=== PATIENT | male | born 1935 | race Caucasian/White ===

== ENCOUNTER → 2016-05-07 | Outpatient (REF) | payer OTHER ==
[~2016-05-07] MED LIST: BAYE325T12 PO; CARV6.25 PO; CRES20TA PO; CYCL10TA3 PO; DIOV320T PO; GLUC750T22 PO; HYDR50TA2 PO; K-TA10TA PO; LASI40TA PO; OMEP40CA2 PO; ULTR50TA PO; VITAMIN B 12 PO; [UNRECOGNIZED DRUG - OTHER] PO
[2016-05-07 16:03] LABS: BASO # 0.1 K/mm3 (0.0-0.2); BASO % 1.4 % (0.0-1.0); EOS # 0.6 K/mm3 (0.0-0.50); EOS % 6.2 % (0.0-3.0); LARGE UNSTAINED CELL # 0.2 K/mm3 (0.0-0.4); LARGE UNSTAINED CELL % 2.2 % (0.0-4.0); LYMPH # 2.4 K/mm3 (1.5-4.5); MEAN CORPUSCULAR HEMOGLOBIN 27.5 pg (27.0-33.0); MEAN CORPUSCULAR VOLUME 85.8 fl (80.0-96.0); MONO # 0.7 K/mm3 (0.0-0.8); MONO % 7.7 % (0.0-5.0); NEUTROPHILS # 5.7 K/mm3 (1.8-7.7); NEUTROPHILS % 59.5 % (36.0-66.0); PLATELET COUNT, AUTOMATED 277 k/mm3 (150-450); RED CELL DISTRIBUTION WIDTH 14.8 % (11.5-14.5); WHITE BLOOD COUNT 9.5 K/mm3 (4.0-10.0)
[2016-05-07 16:29] LABS: ALBUMIN 3.5 GM/DL (3.2-5.2); ALBUMIN/GLOBULIN RATIO 1.06 (1.00-1.93); ALKALINE PHOSPHATASE 81 U/L (45-117); ALT/SGPT 17 U/L (12-78); ANION GAP 7 MEQ/L (8-16); AST/SGOT 11 U/L (15-37); BILIRUBIN,TOTAL 0.4 MG/DL (0.2-1.0); BLOOD UREA NITROGEN 19 MG/DL (7-18); CALCIUM LEVEL 8.6 MG/DL (8.8-10.2); CARBON DIOXIDE LEVEL 32 MEQ/L (21-32); CHLORIDE LEVEL 104 MEQ/L (98-107); CHOLESTEROL LEVEL 146 MG/DL (<200); CREATININE FOR GFR 1.16 MG/DL (0.70-1.30); GLOMERULAR FILTRATION RATE > 60.0 (>35); GLUCOSE, FASTING 122 MG/DL (83-110); POTASSIUM SERUM 4.3 MEQ/L (3.5-5.1); SODIUM LEVEL 143 MEQ/L (136-145); TOTAL PROTEIN 6.8 GM/DL (6.4-8.2); TRIGLYCERIDES LEVEL 101 MG/DL (<150)
== END ==
LOC: M SFHCPLAZ 12:18
PROVIDERS: ATTEND Family Medicine
DX: N18.3 Chronic kidney disease, stage 3 (moderate) (principal); E78.5 Hyperlipidemia, unspecified; R73.01 Impaired fasting glucose; Z85.46 Personal history of malignant neoplasm of prostate; Z98.890 Other specified postprocedural states
CPT/HCPCS: 36415; 80053; 80061; 81001; 82043; 82550; 83036; 85025; 86140; G0103; G0463

== ENCOUNTER → 2016-06-05 | Outpatient (CLI) | payer MEDICARE, OTHER ==
--- NOTE | 2016-06-05 15:08 | REP ---
Whole body radionuclide bone scan: History: Rising PSA. History of malignancy of the prostate. Comparison bone scan is from January 25, 2014. Technique: 21.6 mCi of technetium 99m MDP is injected and standard whole body bone scan imaging is acquired. Scintigraphic findings: There is uptake in bilateral kidneys and in the urinary bladder. There is a fairly prominent arthritic uptake affecting both knees which is unchanged from the December 2013 prior study. There is mild arthritic uptake pattern in the shoulders as well. Degenerative disc and facet uptake is seen in the cervical spine unchanged from the comparison study. There is degenerative disc uptake in the lumbar spine at L2-3 a which is felt to be unchanged. Oblique images of the thorax show a new area of increased uptake in the right side of the T8 vertebral body affecting the right pedicle or right costovertebral junction. There is also increased uptake at T10 bilaterally. These areas must be considered somewhat suspicious. Lower thoracic spine CT or MR imaging may provide additional information. No other new focal abnormality. Impression: There are two new areas of uptake in the lower thoracic spine at T8 and T10. Otherwise unchanged from comparison bone scan. Consider lower thoracic spine CT or MR imaging. Signed by Sean Fernandez MD 06/05/2016 04:19 P
== END ==
LOC: M RAD 09:48
PROVIDERS: ATTEND Nurse Practitioner Women's Health
DX: R97.21 Rising PSA following treatment for malignant neoplasm of prostate (principal)
CPT/HCPCS: 78306; A9503

== ENCOUNTER → 2016-06-07 | Outpatient (CLI) | payer MEDICARE, OTHER ==
[~2016-06-07] MED LIST changes: +GASTROGRAFIN SOLUTION 30ML (Q9963) As Ordered ONE; +ISOVUE-370 76% 100ML VIAL (Q9967) As Ordered ONE
--- NOTE | 2016-06-08 05:08 | REP ---
Clinical: History of rising prostate specific antigen (PSA) with history of prostate cancer and new uptake at T8 and T10 on the bone scan. Technique: Axial contrast enhanced images from the lung bases to the pubic symphysis using 100 ml Isovue 370 intravenous contrast material with precontrast and delayed images of the abdomen and coronal/sagittal re-formations. Comparison: 01/25/2014. Findings: Lung bases demonstrate chronic changes. Visualized heart and pericardium are grossly normal. A moderate and stable paraesophageal gastric hiatal hernia is again identified. Liver, spleen, pancreas, gallbladder, bilateral adrenal glands are normal. Chronic perinephric stranding with cortical scarring and atrophic changes are noted to the kidneys. The enteric system is without obstruction or acute inflammatory process. Scattered diverticula noted without acute diverticulitis. Stable curvilinear rim calcified fat density structure in the anterior left jaclyn pelvis may represent sequelae of prior appendagitis or diverticulitis. Pelvis demonstrates relatively normal bladder. Prostate gland is grossly unremarkable. No pelvic fluid or ascites. No intraperitoneal or retroperitoneal adenopathy. No mass lesions are identified. Small fat containing inguinal hernias noted. Atherosclerotic changes to the aorta and vasculature without aneurysm or dissection. Musculoskeletal structures demonstrate degenerative changes without focal osseous abnormality. Specifically, T10 and visualized T8 demonstrate degenerative change without focal lytic/blastic lesion, sclerotic focus or compression fracture. Impression: 1. With regards to prior nuclear medicine bone scan, no focal osseous abnormalities identified. 2. Chronic stable changes including paraesophageal hiatal hernia, atrophic renal changes, colonic diverticula, and small rimmed calcified curvilinear fat structure in the left hemipelvis. 3. No acute intra-abdominal or pelvic pathology appreciated. Signed by Angel Garcia MD 06/08/2016 04:59 A
== END ==
LOC: M RAD 14:55
PROVIDERS: ATTEND Nurse Practitioner Women's Health
DX: R97.21 Rising PSA following treatment for malignant neoplasm of prostate (principal); Z85.46 Personal history of malignant neoplasm of prostate; Z08 Encounter for follow-up examination after completed treatment for malignant neoplasm
CPT/HCPCS: 74178; Q9967

== ENCOUNTER → 2016-06-28 | Outpatient (REF) | payer OTHER ==
[~2016-06-28] MED LIST changes: -GASTROGRAFIN SOLUTION 30ML (Q9963) As Ordered ONE; -ISOVUE-370 76% 100ML VIAL (Q9967) As Ordered ONE
[2016-06-28 16:22] LABS: CREATININE FOR GFR 1.23 MG/DL (0.70-1.30); GLOMERULAR FILTRATION RATE 59.8 (>35); POTASSIUM SERUM 4.4 MEQ/L (3.5-5.1)
== END ==
LOC: M LABSMT 12:54
PROVIDERS: ATTEND Urology
DX: C61 Malignant neoplasm of prostate (principal)

== ENCOUNTER → 2016-06-29 | Outpatient (CLI) | payer MEDICARE, OTHER ==
--- NOTE | 2016-06-29 14:46 | REP ---
MR THORACIC SPINE WITHOUT AND WITH CONTRAST: HISTORY: Prostate cancer. Contrast: ProHance 10 mL. A disc bulge is present at the T1-2 level. There is minimal effacement of the thecal sac without spinal cord compression. The T1 neural foramina are patent. A small central disc protrusion is present at the T2-3 level. This abuts the spinal cord. The T2 neural foramina are patent. A small central disc protrusion is present at the T6-7 level. There is minimal effacement of the thecal sac without spinal cord compression. The T2 neural foramina are patent. A disc bulge is present at the T8-9 level. There is minimal effacement of the thecal sac without spinal cord compression. The T8 neural foraminal are patent. A disc bulge is present at the T9-10 level. There is minimal effacement of the thecal sac without spinal cord compression. The T9 neural foramina are patent. A disc bulge is present at the T10-11 level. There is minimal effacement of the thecal sac without spinal cord compression. The T10 neural foramina are patent. There is no other disc bulge or herniation. The remaining neural foramina are patent. The spinal cord is normal in signal intensity. There is no intradural extramedullary lesion. Increased signal intensity on T2-weighted images is present in the endplates of the T8 through T11 vertebral bodies. This represents degenerative change. Normal signal intensity is present in the remaining thoracic vertebral bodies. There is no abnormal enhancement. IMPRESSION: 1. Small disc protrusions at the T2-3 and T6-7 levels without spinal cord compression. 2. Disc bulges at the T1-2 and T8-9 through T10-11 levels without spinal cord compression. Signed by Fernando Jaimes MD 06/29/2016 02:49 P
== END ==
LOC: M RAD 11:11
PROVIDERS: ATTEND Urology
DX: M54.6 Pain in thoracic spine (principal)
CPT/HCPCS: 72157; A9576

== ENCOUNTER 2016-09-06 14:05 | Inpatient (IN) | payer OTHER ==
[~2016-09-06] VITALS: Ht 185.4 cm; Wt 107.5 kg
[2016-09-06] MEDS: POTASSIUM CHLORIDE 10 MEQ SR TABLET PO SCH (02:28)
[2016-09-06] MEDS: CAPTOpril 6.25 MG PER 1/2 TABLET PO SCH (02:28)
[2016-09-06] MEDS: OMEPRAZOLE 20 MG CAP PO SCH (02:28)
[2016-09-06] MEDS: ASPIRIN 325 MG TAB PO SCH (02:28)
[2016-09-06] MEDS ORDERED: CEPH500C (14:15)
[2016-09-06] MEDS ORDERED: CAPT125TA (14:15)
[2016-09-06] MEDS ORDERED: OMEP20CA3 (14:15)
[2016-09-06] MEDS ORDERED: IRBE150T12 (14:15)
[2016-09-06] MEDS ORDERED: VITA10002 (14:15)
[2016-09-06] MEDS ORDERED: DICL1GEL3 (14:15)
[2016-09-06] MEDS ORDERED: MORPHINE 2 MG/ML 1ML SYRINGE IV ONE (15:15)
[2016-09-06] MEDS ORDERED: CLINDAMYCIN 600 MG in APPROPRIATE DILUENT 1 EA IV ONE (15:15)
[2016-09-06 16:28] LABS: ANION GAP 6 MEQ/L (8-16); BLOOD UREA NITROGEN 19 MG/DL (7-18); CARBON DIOXIDE LEVEL 31 MEQ/L (21-32); CHLORIDE LEVEL 101 MEQ/L (98-107); CREATININE FOR GFR 1.09 MG/DL (0.70-1.30); GLOMERULAR FILTRATION RATE > 60.0 (>35); GLUCOSE, FASTING 176 MG/DL (83-110); SODIUM LEVEL 138 MEQ/L (136-145)
--- NOTE | 2016-09-06 16:53 | REP ---
FOOT: REASON: Swelling for a week after trauma. COMPARISON: 02/18/2012 The bones are demineralized. Degenerative changes are again seen throughout the foot increased. This limited two view exam can not rule out a fracture or destructive osseous lesion. There is diffuse swelling about both anterior and plantar surfaces of the foot. IMPRESSION: Marked diffuse swelling and chronic changes and limitations as described above. If a fracture is of clinical concern obtain 4 view trauma series. If osteomyelitis is of clinical concern obtain an MRI. If the patient is not compatible with an MRI then obtain a triple phase bone scan. A fracture can not be ruled out. Signed by Cristino Ortiz DO 09/06/2016 04:55 P
[2016-09-06 17:14] LABS: BASO % 0.2 % (0.0-1.0); EOS # 0.3 K/mm3 (0.0-0.50); EOS % 3.2 % (0.0-3.0); LARGE UNSTAINED CELL # 0.2 K/mm3 (0.0-0.4); LARGE UNSTAINED CELL % 2.2 % (0.0-4.0); LYMPH # 1.6 K/mm3 (1.5-4.5); MEAN CORPUSCULAR HEMOGLOBIN 28.7 pg (27.0-33.0); MEAN CORPUSCULAR VOLUME 89.8 fl (80.0-96.0); MONO # 0.7 K/mm3 (0.0-0.8); MONO % 7.8 % (0.0-5.0); NEUTROPHILS # 5.6 K/mm3 (1.8-7.7); NEUTROPHILS % 67.5 % (36.0-66.0); PLATELET COUNT, AUTOMATED 328 k/mm3 (150-450); RED CELL DISTRIBUTION WIDTH 13.5 % (11.5-14.5); WHITE BLOOD COUNT 8.2 K/mm3 (4.0-10.0)
[2016-09-06 17:41] LABS: ERYTHROCYTE SEDIMENTATION RATE 49 mm/hr (0-20)
[2016-09-06] MEDS ORDERED: ONDANSETRON 4MG/2ML VIAL (J2405) IV PRN (18:30)
[2016-09-06] MEDS ORDERED: BISACODYL 5 MG TAB PO PRN (18:30)
[2016-09-06] MEDS ORDERED: MORPHINE 2 MG/ML 1ML SYRINGE IV PRN (18:45)
[2016-09-06] MEDS ORDERED: OMEP20CA3 PO (19:09)
[2016-09-06] MEDS ORDERED: POTA10CA PO (19:09)
[2016-09-06] MEDS ORDERED: TRAM50TA2 PO (19:09)
[2016-09-06] MEDS ORDERED: CAPT62TA PO (19:09)
[2016-09-06] MEDS ORDERED: TIZA2TA PO (19:09)
[2016-09-06] MEDS ORDERED: FURO40TA2 PO (19:09)
[2016-09-06] MEDS ORDERED: ASPI325T PO (19:09)
[2016-09-06] MEDS ORDERED: CEPH500C PO (19:09)
[2016-09-06] MEDS ORDERED: VITA100066 PO (19:11)
[2016-09-06] MEDS ORDERED: CRES20TA PO (19:11)
[2016-09-06] MEDS ORDERED: VITA10002 PO (19:11)
--- NOTE | 2016-09-06 20:04 | HPE ---
DATE OF ADMISSION: 09/06/2016 PRIMARY CARE PROVIDER: Dr. Landen Dyson CHIEF COMPLAINT: Leg pain and swelling. HISTORY OF PRESENT ILLNESS: Mr. Chino is an 81-year-old male with past medical history significant for hypertension, hyperlipidemia, prostate cancer status post radiation therapy 20 years ago, gastroesophageal reflux disease, Zenker's diverticulum, benign prostatic hypertrophy, obstructive sleep apnea refusing C-PAP, erectile dysfunction, partial complex seizures refusing antiepileptic drugs, CHF with diastolic dysfunction and degenerative joint disease presents to the emergency department with left foot pain and swelling. The patient reports that on Saturday he dropped a cane on his left foot. The next day he started to develop swelling and pain. He presented to his primary care provider on Saturday and was prescribed Keflex. The patient reports that he had been taking his Keflex as prescribed however, his left foot became more swollen, more red and more painful. He reports a previous history of cellulitis. States that it is extremely painful. He reports that he has difficulty with ambulating. Patient reports some lightheadedness. Denies any fevers, chills, night sweats, weight loss, nausea, vomiting, abdominal pain, diarrhea, constipation, urinary issues, rashes. He denies any break in the skin and no drainage. He denies any sick contacts and no recent travel. He reports chronic numbness and tingling of bilateral feet, unchanged. He was given morphine and clindamycin in the emergency department and hospitalist was subsequently called to admit. PAST MEDICAL HISTORY: 1. Hypertension. 2. Hyperlipidemia. 3. Prostate cancer status post radiation therapy 20 years ago. 4. Obstructive sleep apnea, refuses C-PAP. 5. Partial complex seizures, refuses antiepileptic drugs. 6. Gastroesophageal reflux disease. 7. Diverticulum. 8. History of nephrolithiasis. 9. Benign prostatic hypertrophy. 10. History of hiatal hernia. 11. Knee osteoarthritis. 12. Erectile dysfunction. 13. Diastolic heart failure , EF of 60% in 2014. 14. Vitamin D deficiency. 15. B12 deficiency. 16. Lumbar disk degenerative disease. 17. Questionable chronic kidney disease. PAST SURGICAL HISTORY: He reports some form of prostate surgery HOME MEDICATIONS: - aspirin 325 mg by mouth daily - captopril 12.5 mg daily - Keflex 500 mg - vitamin B12 - furosemide 40 mg daily - irbesartan 150 mg daily - omeprazole 20 mg daily - Tramadol 50 mg by mouth twice daily - Crestor 20 mg by mouth at night - vitamin B12 2500 mcg by mouth - vitamin D3 1000 mg by mouth daily - K-tabs 20 mEq by mouth daily - glucosamine 1500 mg by mouth daily ALLERGIES: No known drug allergies. SOCIAL HISTORY: The patient is a former smoker, quit in 1969. Smoked for about 10-15 years of up to one pack per day. Denies any alcohol or illicit drug use. He lives with his who Alzheimer's dementia He has five children. Daughter has history of iron problems. He also has a 59-year-old daughter who he reports has been a coma for 2 years after having gastric bypass surgery, recently transferred to [facility]. No sick contacts, recent travel and no pets. FAMILY HISTORY: Mom had history of cancer, unknown. Father had history of CA at age 61. REVIEW OF SYSTEMS: As per HPI. In addition, the patient reports chronic cramping of his feet. He has chronic intermittent headaches. No syncope. No palpitations, paroxysmal nocturnal dyspnea, orthopnea. No cough or sputum production. No acute changes in vision or hearing. No hematochezia or melena. No change in urinary frequency, but reports that he urinates a lot secondary to being on Lasix. No dysuria or hematuria. No rashes or skin lesions. No joint or bone pain currently. No history of diabetes or thyroid disorder. PHYSICAL EXAMINATION: Vital signs: Temperature 98.2, pulse 77, respiratory rate 16, blood pressure 155/93, pulse ox 94% on room air. GENERAL: The patient is awake and alert in no acute distress. HEENT: Normocephalic, atraumatic. Extraocular muscles are intact. Pupils are equally round and reactive to light. No scleral icterus. Moist mucosa. NECK: Supple. No cervical lymphadenopathy or thyromegaly. No jugular venous distension appreciated. HEART: Normal S1-S2, regular rate and rhythm. I did not appreciate a murmur. He has distant heart sounds. LUNGS: Clear to auscultation bilaterally. No rales, rhonchi or wheezing. ABDOMEN: Obese, soft, nontender. Bowel sounds are present. No rebound, guarding or rigidity. EXTREMITIES: Left foot has significant edema and erythema. Tender to touch. Pulses are palpable. He has a pill rolling tremor. SKIN: Warm and dry. Has significant erythema of the left foot to his ankle NEUROLOGIC: No focal deficits. Cranial nerves II-XII are grossly intact. Moving all extremities. LABORATORY DATA: WBC 8.2, hemoglobin 13.4, hematocrit 41.8, platelet count 320, a volume 138, potassium 4.0, chloride 101, carbon dioxide 31, anion gap 6, BUN 19, creatinine 1.09, GFR greater than 60, fasting glucose 176, calcium 8.0, C-reactive protein 13.0. Microbiology blood cultures pending. IMAGING STUDIES: The patient had a foot x-ray which revealed mild diffuse swelling and chronic changes. Diffuse swelling of the anterior and plantar surfaces of the foot, which limits imaging. Recommending either four view trauma series or MRI because fracture could not be ruled out. ASSESSMENT/PLAN: 1. Left foot cellulitis, failed outpatient antibiotic therapy. The patient will be placed on ceftaroline 600 mg every 12 hours. Blood cultures are pending. C-reactive protein elevated at 13. Vitals are stable. He is afebrile. Foot x-ray could not rule out fracture or bone pathology. Will obtain an MRI of the left foot. Pain medication as needed. 2. Hypertension. Continue with his blood pressure medications with hold parameters. 3. Hyperlipidemia. Continue with Crestor. 4. History of prostate cancer status post radiation therapy 20 years ago. No recurrence. 5. Gastroesophageal reflux disease. Continue with omeprazole 6. Obstructive sleep apnea. The patient refuses C-PAP treatment. Will need continuous pulse oximetry. 7. History of partial complex seizure, refuses antiepileptic drugs. Monitor for seizure activity. 8. History of diastolic heart failure, ejection fraction of 60% in 2013. He appears compensated at this time. Continue with the Lasix. Monitor renal function and electrolytes. 9. History of benign prostatic hypertrophy. 10. History of chronic obstructive pulmonary disease. 11. History of osteoarthritis. Tylenol as needed. CODE STATUS: The patient is full code. The patient will be admitted to medical-surgical as inpatient. DVT prophylaxis with subcutaneous heparin. My preceptor for this patient encounter was Dr. Janae Sutton. The preceptor was physically present in the building during the encounter and was fully available as needed. All aspects of the patient interview, examination, medical decision making process, and medical care plan development were reviewed and approved by the preceptor. The preceptor is aware and concurs with the plan as stated in the body of this note and will attest to such by his/her co-signature.
--- NOTE | 2016-09-06 20:40 | REPUSA ---
MRI of the left foot Clinical statement: swelling, trauma. Technique: Multiecho multiplanar MRI images of the left foot were obtained without administration of contrast. No comparison is available. Findings: Ligaments and tendons: The anterior, medial and lateral tendons of the ankle demonstrate normal signa l and contour. The Achilles tendon is within normal limits. The medial and lateral ligament complexes are intact. Articular cartilage: Uniform signal and contour seen throughout the articular cartilage, with no oste ochondral defects appreciated. Bones: The osseous structures demonstrate uniform signal. No osseous tumors or lesions are seen. The bone marrow is unremarkable. Soft tissues: The surrounding soft tissues are mildly diffusely swollen. The musculature appears wit hin normal limits. No evidence of a joint effusion is seen. Impression: Diffuse soft tissue swelling. No focal soft tissue fluid collection or mass demonstrated . The osseous structures are unremarkable, without any acute fractures.
[2016-09-06] MEDS ORDERED: ROSUVASTATIN 10 MG TAB (CRESTOR) PO SCH (21:00)
[2016-09-07] MEDS ORDERED: CEFTAROLINE FOSAMIL 600 MG in D5W MINI-BAG PLUS 50 ML IV SCH ×2
[2016-09-07 01:08] VITALS: BP 139/79
[2016-09-07] MEDS: CEFTAROLINE FOSAMIL 600 MG in D5W MINI-BAG PLUS 50 ML IV SCH ×2 (02:06→14:30)
[2016-09-07] MEDS: PERCOCET 5MG/325MG TAB PO PRN ×2 (02:14→14:32)
[2016-09-07] MEDS: HEPARIN SOD (PORCINE) 5000 UNITS/ML VIAL SC SCH ×4 (02:29→21:08)
[2016-09-07] MEDS: traMADol 50 MG TAB PO SCH ×3 (02:29→21:07)
[2016-09-07 05:43] LABS: MEAN CORPUSCULAR HEMOGLOBIN 27.8 pg (27.0-33.0); MEAN CORPUSCULAR HGB CONC 31.3 g/dl (32.0-36.5); MEAN CORPUSCULAR VOLUME 88.9 fl (80.0-96.0); RED CELL DISTRIBUTION WIDTH 13.5 % (11.5-14.5); WHITE BLOOD COUNT 8.2 K/mm3 (4.0-10.0)
[2016-09-07 06:00] VITALS: BP 132/72
[2016-09-07 06:05] LABS: ANION GAP 7 MEQ/L (8-16); BLOOD UREA NITROGEN 19 MG/DL (7-18); CALCIUM LEVEL 8.3 MG/DL (8.8-10.2); CARBON DIOXIDE LEVEL 32 MEQ/L (21-32); CHLORIDE LEVEL 102 MEQ/L (98-107); CREATININE FOR GFR 0.99 MG/DL (0.70-1.30); GLOMERULAR FILTRATION RATE > 60.0 (>35); GLUCOSE, FASTING 139 MG/DL (83-110); POTASSIUM SERUM 4.1 MEQ/L (3.5-5.1); SODIUM LEVEL 141 MEQ/L (136-145)
--- NOTE | 2016-09-07 08:24 | IPNPDOC ---
Subjective Date Seen The patient was seen on 09/07/16. Subjective Chief Complaint/HPI The patient is a 81-year-old male admitted with a reason for visit of Cellulitis Of Left Foot. Events since last encounter Osteomyelitis tx. MRI and xray completed. Started on Ceftaroline. Constitutional: Denies: Chills, Fever, Night Sweats ENT: Denies: Head Aches, Ear Pain, Dysphagia Skin: Denies: Rash, Lesions, Breakdown Pulmonary: Denies: Dyspnea, Cough Cardiovascular: Denies: Chest Pain, Palpitations, Orthopnea, Paroxysmal Noc. Dyspnea, Edema, Lt Headedness, Other Symptoms Genitourinary: Denies: Dysuria, Frequency, Incontinence, Retention Objective Physical Examination General Exam: Positive: Alert, No Acute Distress ENT Exam: Positive: Atraumatic, Mucous membr. moist/pink, Pharynx Normal Neck Exam: Positive: Supple, Negative: JVD, thyromegaly Chest Exam: Positive: Clear to auscultation, Normal air movement Heart Exam: Positive: Rate Normal, Regular Rhythm, Normal S1, Normal S2, Negative: Murmurs, Rubs Abdomen Exam: Positive: Normal bowel sounds, Soft, Negative: Tenderness, Hepatospenomegaly Extremity Exam: Positive: Other (LLE with erythema and swelling. + warmth, mildly tender) Skin Exam: Positive: Nl turgor and temperature, Negative: Rash, Breakdown Psych Exam: Positive: Mental status NL, Mood NL, Oriented x 3 Assessment /Plan Problems (1) Cellulitis of left foot Status: Acute Problem Text: Day 1 Ceftaroline. Failed out patient Keflex. MRI negative for osteomyelitis. Patient feels better, but gout remains a possibility here. 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 (6) GERD (gastroesophageal reflux disease) Status: Chronic Response to Treatment: Stable (7) BPH (benign prostatic hyperplasia) Status: Chronic Response to Treatment: Stable (8) Diastolic CHF Status: Chronic Response to Treatment: Stable Problem Text: EF 60% Plan/VTE VTE Prophylaxis Ordered?: Yes (Heparin ) VS, I&O, [facility] Vital Signs/I&O Vital Signs Date Time Temp Pulse Resp B/P (MAP) Pulse Ox O2 Delivery O2 Flow Rate FiO2 09/07/16 06:00 98.0 78 20 132/72 (92) 94 09/07/16 01:08 Room Air I&O- Last 24 Hours up to 6 AM 09/07/16 05:59 Intake Total 230 ml Output Total 150 ml Balance 80 ml Laboratory Data 24H LABS Laboratory Tests 2 09/06/16 15:43: White Blood Count 8.2, Red Blood Count 4.66, Hemoglobin 13.4L, Hematocrit 41.8L , Mean Corpuscular Volume 89.8, Mean Corpuscular Hemoglobin 28.7, Mean Corpuscular Hemoglobin Concent 32.0, Red Cell Distribution Width 13.5, Platelet Count 328, Neutrophils (%) (Auto) 67.5H, Lymphocytes (%) (Auto) 19.0L, Monocytes (%) (Auto) 7.8H, Eosinophils (%) (Auto) 3.2H, Basophils (%) (Auto) 0.2 , Neutrophils # (Auto) 5.6, Lymphocytes # (Auto) 1.6, Monocytes # (Auto) 0.7, Eosinophils # (Auto) 0.3, Basophils # (Auto) 0.0, Large Unclassified Cells % 2.2 , Large Unclassified Cells # 0.2, Erythrocyte Sedimentation Rate 49H, Anion Gap 6L, Glomerular Filtration Rate > 60.0, Blood Urea Nitrogen 19H, Creatinine 1.09 , Sodium Level 138, Potassium Level 4.0, Chloride Level 101, Carbon Dioxide Level 31, Calcium Level 8.0L, C-Reactive Protein, Quantitative 13.00H 09/07/16 05:25: Anion Gap 7L, Glomerular Filtration Rate > 60.0, Blood Urea Nitrogen 19H, Creatinine 0.99, Sodium Level 141, Potassium Level 4.1, Chloride Level 102, Carbon Dioxide Level 32, Calcium Level 8.3L CBC/BMP Laboratory Tests 09/06/16 15:43 Red Blood Count 4.66, Mean Corpuscular Volume 89.8, Mean Corpuscular Hemoglobin 28.7, Mean Corpuscular Hemoglobin Concent 32.0, Red Cell Distribution Width 13.5 , Neutrophils (%) (Auto) 67.5 H, Lymphocytes (%) (Auto) 19.0 L, Monocytes (%) ( Auto) 7.8 H, Eosinophils (%) (Auto) 3.2 H, Basophils (%) (Auto) 0.2, Neutrophils # (Auto) 5.6, Lymphocytes # (Auto) 1.6, Monocytes # (Auto) 0.7, Eosinophils # (Auto) 0.3, Basophils # (Auto) 0.0, Calcium Level 8.0 L 09/07/16 05:25 Red Blood Count 4.16 L, Mean Corpuscular Volume 88.9, Mean Corpuscular Hemoglobin 27.8, Mean Corpuscular Hemoglobin Concent 31.3 L, Red Cell Distribution Width 13.5, Calcium Level 8.3 L Microbiology Microbiology 09/06/16 Blood Culture, Received Pending 09/06/16 Blood Culture, Received Pending Attending Note Attending Note Patient seen. Agree with plan and findings by [employer] RECREATION DIRECTOR. Will check uric acid level. Consider colchicine. Sandra Nieto September 07, 2016 08:23 Fabrizio Zhou MD September 07, 2016 12:30
[2016-09-07] MEDS: OMEPRAZOLE 20 MG CAP PO SCH ×2 (09:44→21:06)
[2016-09-07] MEDS: CYANOCOBALAMIN 500 MCG TAB PO SCH (09:44)
[2016-09-07] MEDS: FUROSEMIDE 40 MG TAB PO SCH (09:44)
[2016-09-07] MEDS: POTASSIUM CHLORIDE 10 MEQ SR TABLET PO SCH ×2 (09:44→21:07)
[2016-09-07] MEDS: CAPTOpril 6.25 MG PER 1/2 TABLET PO SCH ×2 (09:44→21:07)
[2016-09-07] MEDS: VITAMIN D 1,000 INTERNATIONAL UNITS TABLET PO SCH (09:45)
[2016-09-07 13:22] LABS: URIC ACID 6.6 MG/DL (3.5-7.2)
[2016-09-07 14:00] VITALS: BP 142/85
[2016-09-07] MEDS: COLCHICINE 0.6 MG TAB PO SCH ×2 (14:30→21:07)
[2016-09-07] MEDS: ASPIRIN 325 MG TAB PO SCH (21:08)
[2016-09-07 22:00] VITALS: BP 131/77
[2016-09-08] MEDS: ACETAMINOPHEN TAB 650MG DOSE (2X325MG) PO PRN (00:45)
[2016-09-08] MEDS: CEFTAROLINE FOSAMIL 600 MG in D5W MINI-BAG PLUS 50 ML IV SCH ×2 (01:40→14:56)
[2016-09-08] MEDS: HEPARIN SOD (PORCINE) 5000 UNITS/ML VIAL SC SCH ×3 (05:55→21:02)
[2016-09-08 06:00] VITALS: BP 148/75
[2016-09-08 06:13] LABS: MEAN CORPUSCULAR HEMOGLOBIN 28.2 pg (27.0-33.0); RED CELL DISTRIBUTION WIDTH 13.4 % (11.5-14.5); WHITE BLOOD COUNT 7.4 K/mm3 (4.0-10.0)
[2016-09-08 06:18] LABS: ANION GAP 9 MEQ/L (8-16); BLOOD UREA NITROGEN 14 MG/DL (7-18); CALCIUM LEVEL 8.3 MG/DL (8.8-10.2); CARBON DIOXIDE LEVEL 27 MEQ/L (21-32); CHLORIDE LEVEL 103 MEQ/L (98-107); CREATININE FOR GFR 0.91 MG/DL (0.70-1.30); GLOMERULAR FILTRATION RATE > 60.0 (>35); GLUCOSE, FASTING 127 MG/DL (83-110); SODIUM LEVEL 139 MEQ/L (136-145)
[2016-09-08] MEDS: CYANOCOBALAMIN 500 MCG TAB PO SCH (09:53)
[2016-09-08] MEDS: COLCHICINE 0.6 MG TAB PO SCH ×2 (09:53→21:03)
[2016-09-08] MEDS: OMEPRAZOLE 20 MG CAP PO SCH ×2 (09:53→21:03)
[2016-09-08] MEDS: FUROSEMIDE 40 MG TAB PO SCH (09:53)
[2016-09-08] MEDS: POTASSIUM CHLORIDE 10 MEQ SR TABLET PO SCH ×2 (09:53→21:03)
[2016-09-08] MEDS: CAPTOpril 6.25 MG PER 1/2 TABLET PO SCH ×2 (09:53→21:03)
[2016-09-08] MEDS: VITAMIN D 1,000 INTERNATIONAL UNITS TABLET PO SCH (09:54)
[2016-09-08] MEDS: traMADol 50 MG TAB PO SCH ×2 (09:55→21:03)
[2016-09-08 14:00] VITALS: BP 166/80
[2016-09-08] MEDS: ASPIRIN 325 MG TAB PO SCH (21:02)
[2016-09-08 22:00] VITALS: BP 145/92
--- NOTE | 2016-09-08 23:57 | IPNPDOC ---
Subjective Date Seen The patient was seen on 09/08/16. Subjective Chief Complaint/HPI The patient is a 81-year-old male admitted with a reason for visit of Cellulitis Of Left Foot. Events since last encounter Patient states that his foot is doing much better than yesterday. He is able to tolerate having a sheet and blanket on it. It seems significantly less swollen. It is still uncomfortable to walk on. Otherwise, he feels that he is doing well. He wonders when he will be able to go home. Constitutional: Reports: Fatigue, Denies: Chills, Fever, Malaise Skin: Reports: Other (erythema left foot) Pulmonary: Denies: Dyspnea, Cough Cardiovascular: Denies: Chest Pain, Palpitations Gastrointestinal: Denies: Nausea, Vomiting, Diarrhea, Constipation Musculoskeletal: Reports: Foot Pain, Joint Pain Psych: Reports: Mood Normal Objective Physical Examination General Exam: Positive: Alert, No Acute Distress ENT Exam: Positive: Atraumatic, Mucous membr. moist/pink, Pharynx Normal Neck Exam: Positive: Supple, Negative: JVD, thyromegaly Chest Exam: Positive: Clear to auscultation, Normal air movement Heart Exam: Positive: Rate Normal, Regular Rhythm, Normal S1, Normal S2, Negative: Murmurs, Rubs Abdomen Exam: Positive: Normal bowel sounds, Soft, Negative: Tenderness, Hepatospenomegaly Extremity Exam: Positive: Other (LLE with erythema and swelling. + warmth, mildly tender) Skin Exam: Positive: Nl turgor and temperature, Negative: Rash, Breakdown Psych Exam: Positive: Mental status NL, Mood NL, Oriented x 3 Assessment /Plan Problems (1) Cellulitis of left foot Status: Acute Problem Text: 09/08 On day 2 of ceftaroline, after failing outpatient Keflex. MRI negative for osteomyelitis. He is also being treated for gout. Improving. 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 (6) GERD (gastroesophageal reflux disease) Status: Chronic Response to Treatment: Stable (7) BPH (benign prostatic hyperplasia) Status: Chronic Response to Treatment: Stable (8) Diastolic CHF Status: Chronic Response to Treatment: Stable Problem Text: EF 60% Plan/VTE VTE Prophylaxis Ordered?: Yes (Heparin ) VS, I&O, 24H, Fishbone Vital Signs/I&O Vital Signs Date Time Temp Pulse Resp B/P (MAP) Pulse Ox O2 Delivery O2 Flow Rate FiO2 09/08/16 22:00 99.0 96 18 145/92 (109) 95 Room Air I&O- Last 24 Hours up to 6 AM 09/08/16 06:00 Intake Total 2450 ml Output Total 1525 ml Balance 925 ml Laboratory Data 24H LABS Laboratory Tests 2 09/08/16 05:31: Anion Gap 9, Glomerular Filtration Rate > 60.0, Blood Urea Nitrogen 14, Creatinine 0.91, Sodium Level 139, Potassium Level 4.0, Chloride Level 103, Carbon Dioxide Level 27, Calcium Level 8.3L, C-Reactive Protein, Quantitative 6.73H CBC/BMP Laboratory Tests 09/08/16 05:31 Red Blood Count 4.28 L, Mean Corpuscular Volume 88.0, Mean Corpuscular Hemoglobin 28.2, Mean Corpuscular Hemoglobin Concent 32.0, Red Cell Distribution Width 13.4, Calcium Level 8.3 L Microbiology Microbiology 09/06/16 Blood Culture - Preliminary, Resulted No Growth after 48 hours. All Specime... 09/06/16 Blood Culture - Preliminary, Resulted No Growth after 48 hours. All Specime... QUINTON QUEZADA DO September 08, 2016 23:57
[2016-09-09] MEDS: CEFTAROLINE FOSAMIL 600 MG in D5W MINI-BAG PLUS 50 ML IV SCH (01:30)
[2016-09-09] MEDS: HEPARIN SOD (PORCINE) 5000 UNITS/ML VIAL SC SCH (05:13)
[2016-09-09] MEDS: ACETAMINOPHEN TAB 650MG DOSE (2X325MG) PO PRN (05:13)
[2016-09-09 06:00] VITALS: BP 150/85
[2016-09-09 06:14] LABS: MEAN CORPUSCULAR HEMOGLOBIN 27.8 pg (27.0-33.0); MEAN CORPUSCULAR HGB CONC 32.2 g/dl (32.0-36.5); MEAN CORPUSCULAR VOLUME 86.3 fl (80.0-96.0); RED CELL DISTRIBUTION WIDTH 13.6 % (11.5-14.5); WHITE BLOOD COUNT 5.6 K/mm3 (4.0-10.0)
[2016-09-09 06:31] LABS: ANION GAP 8 MEQ/L (8-16); BLOOD UREA NITROGEN 12 MG/DL (7-18); CALCIUM LEVEL 8.5 MG/DL (8.8-10.2); CARBON DIOXIDE LEVEL 29 MEQ/L (21-32); CHLORIDE LEVEL 103 MEQ/L (98-107); CREATININE FOR GFR 0.99 MG/DL (0.70-1.30); GLOMERULAR FILTRATION RATE > 60.0 (>35); GLUCOSE, FASTING 151 MG/DL (83-110); POTASSIUM SERUM 3.8 MEQ/L (3.5-5.1); SODIUM LEVEL 140 MEQ/L (136-145)
[2016-09-09] MEDS: POTASSIUM CHLORIDE 10 MEQ SR TABLET PO SCH (09:06)
[2016-09-09] MEDS: FUROSEMIDE 40 MG TAB PO SCH (09:06)
[2016-09-09] MEDS: CYANOCOBALAMIN 500 MCG TAB PO SCH (09:06)
[2016-09-09] MEDS: OMEPRAZOLE 20 MG CAP PO SCH (09:06)
[2016-09-09 09:07] VITALS: BP 150/85
[2016-09-09] MEDS: CAPTOpril 6.25 MG PER 1/2 TABLET PO SCH (09:07)
[2016-09-09] MEDS: COLCHICINE 0.6 MG TAB PO SCH (09:07)
[2016-09-09] MEDS: traMADol 50 MG TAB PO SCH (09:08)
[2016-09-09] MEDS: VITAMIN D 1,000 INTERNATIONAL UNITS TABLET PO SCH (09:08)
[2016-09-09] MEDS ORDERED: COLC1TAB13 PO (12:23)
[2016-09-09] MEDS ORDERED: DOXY-278 PO (12:23)
--- NOTE | 2016-09-10 01:24 | DS.PDOC ---
Discharge Summary General Date of Admission September 07, 2016 at 00:14 Date of Discharge 09/09/2016 Primary Care Physician: Landen Dyson M.D. Attending Physician: QUINTON QUEZADA DO Discharge Summary PROCEDURES PERFORMED DURING STAY: [None]. ADMITTING DIAGNOSES: 1. Left foot cellulitis, failed outpatient antibiotic therapy 2. Hypertension. 3. Hyperlipidemia 4. History of prostate cancer status post radiation therapy 20 years ago. 5. Gastroesophageal reflux disease. 6. Obstructive sleep apnea 7. History of partial complex seizure, 8. History of diastolic heart failure 9. History of benign prostatic hypertrophy. 10. History of chronic obstructive pulmonary disease. 11. History of osteoarthritis. DISCHARGE DIAGNOSES: 1. Left foot cellulitis, failed outpatient antibiotic therapy 2. Hypertension. 3. Hyperlipidemia 4. History of prostate cancer status post radiation therapy 20 years ago. 5. Gastroesophageal reflux disease. 6. Obstructive sleep apnea 7. History of partial complex seizure, 8. History of diastolic heart failure 9. History of benign prostatic hypertrophy. 10. History of chronic obstructive pulmonary disease. 11. History of osteoarthritis. 12. gout COMPLICATIONS/CHIEF COMPLAINT: Cellulitis Of Left Foot. HISTORY OF PRESENT ILLNESS: Mr. Chino is an 81-year-old male with past medical history significant for hypertension, hyperlipidemia, prostate cancer status post radiation therapy 20 years ago, gastroesophageal reflux disease, Zenker's diverticulum, benign prostatic hypertrophy, obstructive sleep apnea refusing C-PAP, erectile dysfunction, partial complex seizures refusing antiepileptic drugs, CHF with diastolic dysfunction and degenerative joint disease presents to the emergency department with left foot pain and swelling. The patient reports that on Saturday he dropped a cane on his left foot. The next day he started to develop swelling and pain. He presented to his primary care provider on Saturday and was prescribed Keflex. The patient reports that he had been taking his Keflex as prescribed however, his left foot became more swollen, more red and more painful. He reports a previous history of cellulitis. States that it is extremely painful. He reports that he has difficulty with ambulating. Patient reports some lightheadedness. Denies any fevers, chills, night sweats, weight loss, nausea, vomiting, abdominal pain, diarrhea, constipation, urinary issues, rashes. He denies any break in the skin and no drainage. He denies any sick contacts and no recent travel. He reports chronic numbness and tingling of bilateral feet, unchanged. He was given morphine and clindamycin in the emergency department and hospitalist was subsequently called to admit. HOSPITAL COURSE: Patient was admitted to the hospital and received ceftaroline. He also received cholchicine, for suspicion of gout. With the combination, patient was feeling significantly better. Uric acid level was found to be normal, but as it was within what could be a flare-up, this does not exclude gout. By the morning of 09/09/2016, patient's foot was much less erythematous. He was able to weightbear and ambulate, and requested DC home. DISCHARGE MEDICATIONS: Please see below. ALLERGIES: Please see below. PHYSICAL EXAMINATION ON DISCHARGE: VITAL SIGNS: Please see below. GENERAL: WDWN adult in NAD HEENT: mucous membranes moist NECK: supple CARDIOVASCULAR EXAMINATION: RRR with no murmurs, rubs, or gallops RESPIRATORY EXAMINATION: clear to auscultation bilat ABDOMINAL EXAMINATION: soft, nontender, nondistended EXTREMITIES: minor edema L foot improving SKIN: NEUROLOGICAL EXAMINATION: no focal deficit PSYCHIATRIC EXAMINATION: normal mood and affect LABORATORY DATA: Please see below. IMAGING: Foot X ray 09/06/16 showed Marked diffuse swelling and chronic changes and limitations as described above. Foot MRI 08/2016 showee Diffuse soft tissue swelling. No focal soft tissue fluid collection or mass demonstrated. The osseous structures are unremarkable, without any acute fractures. PROGNOSIS: good ACTIVITY: [As tolerated]. DIET: as tolerated DISCHARGE PLAN: [home] DISPOSITION: 01 Home, Self-Care. DISCHARGE INSTRUCTIONS: 1. Take all medications as prescribed. 2. Contact the office if you experience fevers, chills, worsening discomfort in your foot, or any concerning symptoms ITEMS TO FOLLOWUP ON ON OUTPATIENT: 1. repeat uric acid level if signficant concern re: gout DISCHARGE CONDITION: [Stable]. TIME SPENT ON DISCHARGE: Greater than 10 minutes. Vital Signs/I&Os Vital Signs Date Time Temp Pulse Resp B/P (MAP) Pulse Ox O2 Delivery O2 Flow Rate FiO2 09/09/16 09:08 20 09/09/16 09:07 150/85 09/09/16 09:00 Room Air 09/09/16 06:00 99.0 72 93 I&O- Last 24 Hours up to 6 AM 09/10/16 05:59 Intake Total 770 ml Output Total 450 ml Balance 320 ml Laboratory Data Labs 24H Laboratory Tests 2 09/09/16 05:55: Anion Gap 8, Glomerular Filtration Rate > 60.0, Blood Urea Nitrogen 12, Creatinine 0.99, Sodium Level 140, Potassium Level 3.8, Chloride Level 103, Carbon Dioxide Level 29, Calcium Level 8.5L CBC/BMP Laboratory Tests 09/09/16 05:55 Red Blood Count 4.18 L, Mean Corpuscular Volume 86.3, Mean Corpuscular Hemoglobin 27.8, Mean Corpuscular Hemoglobin Concent 32.2, Red Cell Distribution Width 13.6, Calcium Level 8.5 L Microbiology Microbiology 09/06/16 Blood Culture - Preliminary, Resulted No Growth after 72 hours. All specime... 09/06/16 Blood Culture - Preliminary, Resulted No Growth after 72 hours. All specime... Discharge Medications Scheduled Aspirin (Aspirin) 325 Mg Tab, 325 MG PO QHS, (Reported) Captopril (Captopril) 12.5 Mg Tab, 6.25 MG PO BID, (Reported) Cholecalciferol (Vitamin D) 1,000 Unit Tab, 1,000 UNIT PO DAILY, (Reported) Colchicine (Colchicine) 0.6 Mg Tab, 0.6 MG PO BID Cyanocobalamin (Vitamin B-12) 1,000 Mcg Tab, 1,000 MCG PO DAILY, (Reported) Doxycycline Hyclate (Doxycycline) 100 Mg Cap, 100 MG PO Q12H Furosemide (Furosemide) 40 Mg Tab, 40 MG PO DAILY, (Reported) Omeprazole (Omeprazole) 20 Mg Cap, 20 MG PO BID, (Reported) Potassium Chloride (Klor-Con M10) 10 Meq Tabcr, 10 MEQ PO BID, (Reported) Rosuvastatin Calcium (Crestor) 20 Mg Tab, 20 MG PO QHS, (Reported) Tizanidine HCl (Tizanidine HCl) 2 Mg Tab, 2 MG PO BID, (Reported) Tramadol HCl (Tramadol HCl) 50 Mg Tab, 50 MG PO BID, (Reported) Allergies Coded Allergies: No Known Allergies (Verified , 10/10/04) QUINTON QUEZADA DO September 10, 2016 01:24
== END 2016-09-09 13:52 | disposition home or self-care (01) | DRG 603 ==
LOC: M ED 16:05 → M ED INP 09-07 00:14 → M MSPAV 09-07 01:27
PROVIDERS: ADMIT Hospitalist; ATTEND Family Medicine
DX: L03.116 Cellulitis of left lower limb (principal); I50.32 Chronic diastolic (congestive) heart failure; I10 Essential (primary) hypertension; E78.5 Hyperlipidemia, unspecified; K21.9 Gastro-esophageal reflux disease without esophagitis; G47.33 Obstructive sleep apnea (adult) (pediatric); M19.90 Unspecified osteoarthritis, unspecified site; J44.9 Chronic obstructive pulmonary disease, unspecified; N40.0 Benign prostatic hyperplasia without lower urinary tract symptoms; M10.9 Gout, unspecified; Z85.46 Personal history of malignant neoplasm of prostate; G40.909 Epilepsy, unspecified, not intractable, without status epilepticus; Z79.899 Other long term (current) drug therapy; Z79.82 Long term (current) use of aspirin; E55.9 Vitamin D deficiency, unspecified; E53.8 Deficiency of other specified B group vitamins; M51.36 Other intervertebral disc degeneration, lumbar region; Z87.891 Personal history of nicotine dependence

== ENCOUNTER → 2016-10-23 | Outpatient (REF) | payer OTHER ==
[~2016-10-23] MED LIST changes: +ALLO100T PO; +ASPI325T PO; +CAPT125TA; +CAPT62TA PO; +CEPH500C; +CEPH500C PO; +CLOP75TA2 PO; +COLC1TAB13 PO; +DICL1GEL3; +DOXY-278 PO; +FURO40TA2 PO; +IRBE150T12; +KEFL500C17 PO; +OMEP20CA3; +OMEP20CA3 PO; +POTA10CA PO; +TIZA2TA PO; +TRAM50TA2 PO; +VITA10002; +VITA10002 PO; +VITA100066 PO
[2016-10-23 16:31] LABS: BASO # 0.1 K/mm3 (0.0-0.2); EOS # 0.3 K/mm3 (0.0-0.50); EOS % 4.7 % (0.0-3.0); LARGE UNSTAINED CELL # 0.2 K/mm3 (0.0-0.4); LARGE UNSTAINED CELL % 2.9 % (0.0-4.0); LYMPH # 1.8 K/mm3 (1.5-4.5); LYMPH % 25.7 % (24.0-44.0); MEAN CORPUSCULAR HEMOGLOBIN 27.9 pg (27.0-33.0); MEAN CORPUSCULAR HGB CONC 31.4 g/dl (32.0-36.5); MONO # 0.6 K/mm3 (0.0-0.8); MONO % 8.2 % (0.0-5.0); NEUTROPHILS # 4.1 K/mm3 (1.8-7.7); NEUTROPHILS % 57.6 % (36.0-66.0); PLATELET COUNT, AUTOMATED 347 k/mm3 (150-450); RED CELL DISTRIBUTION WIDTH 14.3 % (11.5-14.5); WHITE BLOOD COUNT 7.2 K/mm3 (4.0-10.0)
[2016-10-23 18:24] LABS: ANION GAP 6 MEQ/L (8-16); BLOOD UREA NITROGEN 17 MG/DL (7-18); CALCIUM LEVEL 8.6 MG/DL (8.8-10.2); CARBON DIOXIDE LEVEL 33 MEQ/L (21-32); CHLORIDE LEVEL 101 MEQ/L (98-107); CREATININE FOR GFR 1.03 MG/DL (0.70-1.30); GLOMERULAR FILTRATION RATE > 60.0 (>35); GLUCOSE, FASTING 137 MG/DL (83-110); POTASSIUM SERUM 4.2 MEQ/L (3.5-5.1); SODIUM LEVEL 140 MEQ/L (136-145); URIC ACID 5.6 MG/DL (3.5-7.2)
== END ==
LOC: M SFHCPLAZ 13:47
PROVIDERS: ATTEND Physician Assistant Medical
DX: M10.9 Gout, unspecified (principal)
CPT/HCPCS: 80048; 84550; 85025; G0463

== ENCOUNTER → 2016-11-06 | Outpatient (REF) | payer OTHER | LOC: M SFHCPLAZ 09:46 | PROVIDERS: ATTEND Urology | DX: C61 Malignant neoplasm of prostate (principal) ==

== ENCOUNTER 2016-11-07 09:44 | Inpatient (IN) | payer OTHER, MEDICARE ==
[~2016-11-07] VITALS: Ht 185.4 cm; Wt 108.5 kg
[~2016-11-07 09:44] MED LIST changes: -ALLO100T PO; +ASPIRIN 81 MG CHEW TABLET PO SCH; -CLOP75TA2 PO; -KEFL500C17 PO
[2016-11-07] MEDS ORDERED: ACETAMINOPHEN TAB 650MG DOSE (2X325MG) PO ONE (10:30)
[2016-11-07 10:34] LABS: BASO % 0.4 % (0.0-1.0); EOS # 0.3 K/mm3 (0.0-0.50); LARGE UNSTAINED CELL # 0.1 K/mm3 (0.0-0.4); LARGE UNSTAINED CELL % 1.1 % (0.0-4.0); LYMPH # 1.3 K/mm3 (1.5-4.5); LYMPH % 12.2 % (24.0-44.0); MEAN CORPUSCULAR HEMOGLOBIN 28.1 pg (27.0-33.0); MEAN CORPUSCULAR HGB CONC 32.2 g/dl (32.0-36.5); MEAN CORPUSCULAR VOLUME 87.2 fl (80.0-96.0); MONO # 0.4 K/mm3 (0.0-0.8); MONO % 4.2 % (0.0-5.0); NEUTROPHILS # 8.3 K/mm3 (1.8-7.7); NEUTROPHILS % 79.2 % (36.0-66.0); PLATELET COUNT, AUTOMATED 270 k/mm3 (150-450); RED CELL DISTRIBUTION WIDTH 14.1 % (11.5-14.5); WHITE BLOOD COUNT 10.4 K/mm3 (4.0-10.0)
[2016-11-07 10:45] LABS: ALBUMIN 3.4 GM/DL (3.2-5.2); ALBUMIN/GLOBULIN RATIO 0.97 (1.00-1.93); ALKALINE PHOSPHATASE 84 U/L (45-117); ALT/SGPT 18 U/L (12-78); ANION GAP 4 MEQ/L (8-16); AST/SGOT 15 U/L (15-37); BILIRUBIN,DIRECT 0.1 MG/DL (0.0-0.2); BILIRUBIN,TOTAL 0.6 MG/DL (0.2-1.0); BLOOD UREA NITROGEN 15 MG/DL (7-18); CALCIUM LEVEL 8.7 MG/DL (8.8-10.2); CARBON DIOXIDE LEVEL 30 MEQ/L (21-32); CHLORIDE LEVEL 102 MEQ/L (98-107); CREATININE FOR GFR 1.14 MG/DL (0.70-1.30); GLOMERULAR FILTRATION RATE > 60.0 (>35); GLUCOSE, FASTING 187 MG/DL (83-110); POTASSIUM SERUM 4.2 MEQ/L (3.5-5.1); SODIUM LEVEL 136 MEQ/L (136-145); TOTAL PROTEIN 6.9 GM/DL (6.4-8.2)
--- NOTE | 2016-11-07 11:34 | REP ---
CT HEAD WITHOUT CONTRAST: HISTORY: Altered mental status. COMPARISON: 11/22/2014. Areas of decreased attenuation are present in the basal ganglia. These represent old lacunar infarctions. Areas of decreased attenuation are present in the periventricular and subcortical white matter. This represents small vessel ischemic disease. There is no intraparenchymal hemorrhage, mass or midline shift. The ventricular system and cortical sulci are dilated consistent with mild volume loss. There is no extracerebral collection. The visualized sinuses are clear. IMPRESSION: 1. 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 2. Small vessel ischemic disease. 3. Mild volume loss. Signed by Fernando Jaimes MD 11/07/2016 11:37 A
--- NOTE | 2016-11-07 11:48 | REP ---
Chest one-view HISTORY: Altered mental status Comparison: 11/22/2014 The lungs are clear. The cardiac silhouette is enlarged. The pulmonary vasculature is normal in appearance. Impression: Cardiomegaly. Signed by Fernando Jaimes MD 11/07/2016 11:39 A
[2016-11-07] MEDS ORDERED: ASPIRIN 325 MG TAB PO ONE (12:15)
[2016-11-07] MEDS ORDERED: ALLO100T PO (12:52)
[2016-11-07] MEDS: ceFAZolin SOD 1 GM in D5W MINI-BAG PLUS 50 ML IV SCH ×2 (13:00→20:50)
--- NOTE | 2016-11-07 14:15 | REP ---
DUPLEX CAROTID SONOGRAPHY: HISTORY: Stroke. FINDINGS: Antegrade flow is observed in the right vertebral artery. Flow could not be observed in the left vertebral artery. RIGHT CAROTID: Scan quality inhibited by patient body habitus and high bifurcation of the carotids. The right common carotid artery shows diffuse intimal thickening. There is mixed plaquing in the bulb and proximal ICA on the right side on two-dimensional scanning. Color flow and spectral Doppler interrogation are unremarkable on the right. Velocity Chart Right Carotid: PSV EDV Right CCA 87 cm/s Right ICA 52 cm/s 13 cm/s Right ECA 68 cm/s Right ICA/CCA ratio normal 0.6. IMPRESSION: 16- 49% category right ICA by Doppler velocity criteria. LEFT CAROTID: Left common carotid artery shows mild diffuse intimal thickening. There is mixed plaquing in the bulb and proximal ICA moderate in degree. Color flow and spectral Doppler interrogation are unremarkable on the left. Velocity Chart Left Carotid: PSV EDV Left CCA 75 cm/s Left ICA 70 cm/s 30 cm/s Left ECA 67 cm/s Left ICA/CCA ratio normal 0.9. IMPRESSION: 16-49% category narrowing in the left ICA by Doppler velocity criteria. Signed by Sean Fernandez MD 11/07/2016 06:20 P
--- NOTE | 2016-11-07 14:30 | REP ---
MR BRAIN WITHOUT CONTRAST: HISTORY: Aphagia. COMPARISON: 11/07/2006. A punctate focus of increased signal intensity on diffusion weighted images is present in the left parietal lobe. This is isointense in signal intensity on ADC images and is consistent with a subacute infarction. Areas of increased signal intensity on T2-weighted images are present in the basal ganglia. These represent old lacunar infarctions. Areas of increased signal intensity on T2-weighted images are present in the periventricular and subcortical white matter and norma. This represents small vessel ischemic disease. There is no intraparenchymal hemorrhage, acute infarct, mass, or midline shift. The ventricular system and cortical sulci are dilated consistent with mild volume loss. There is no extracerebral collection. The sinuses are clear. IMPRESSION: 1. There is a punctate subacute infarction in the left parietal lobe. 2. Old left basal ganglia lacunar infarctions. 3. Small vessel ischemic disease. 4. Mild volume loss. Signed by Fernando Jaimes MD 11/07/2016 02:32 P
--- NOTE | 2016-11-07 15:37 | REP ---
MRA BRAIN WITHOUT CONTRAST: HISTORY: Aphagia. 3D TOF MR angiography was performed at the level of the [place]. There is no aneurysm or arteriovenous malformation. Mild atherosclerotic disease involves the cavernous and supraclinoid internal carotid arteries, middle cerebral artery trifurcations and posterior cerebral arteries. The A1 segment of the right anterior cerebral artery is hypoplastic. There is origin of the right posterior cerebral artery. Major intracranial vessels are patent. The left vertebral artery is dominant. IMPRESSION: 1. There is no aneurysm or arteriovenous malformation. 2. Atherosclerotic disease as described above. Signed by Fernando Jaimes MD 11/07/2016 03:43 P
[2016-11-07] MEDS: ACETAMINOPHEN TAB 650MG DOSE (2X325MG) PO PRN ×2 (16:23→23:43)
--- NOTE | 2016-11-07 16:23 | HPEPDOC ---
General Date of Admission Nov 07, 2016 at 12:29 Primary Care Physician: Landen Dyson M.D. Attending Physician: BARON STOUT MD Chief Complaint The patient is a 81-year-old male admitted with a reason for visit of Altered Mental Status, Cellulitis Of Left Arm. Source: Patient, Family History of Present Illness Mr. Chino is an 81 y/o man who presents with confusion and difficulty speaking today. His daughter states that he got up this morning and was acting normally and then at approximately 8 am he had sudden onset of speaking "gibberish" and he had slurred speech. He did not exhibit any weakness or facial drooping while this was occurring. He was brought to the ED for evaluation; per ED provider, he was evaluated by Teleneurology and they recommended against tPA and they recommended aspirin daily and head imaging. The patient admits to waking up with a headache the past three days that he describes as a pressure behind his eyes. He does not normally get headaches. He also has a history of seizures in the distant past (20 years ago per his daughter) in which his main symptom was confusion; he is not currently on any antiepileptic medication. He was recently treated in the hospital for a left foot cellulitis; however, his family states that his PCP determined that this was actually gout, and his symptoms improved once he was started on allopurinol. He has new onset of redness on his left arm - his family is uncertain how long this has been present. The patient states he thinks this is from a "sunburn". Home Medications Scheduled Allopurinol (Allopurinol) 100 Mg Tab, 100 MG PO DAILY, (Reported) Aspirin (Aspirin) 325 Mg Tab, 325 MG PO QHS, (Reported) Captopril (Captopril) 12.5 Mg Tab, 6.25 MG PO BID, (Reported) Cholecalciferol (Vitamin D) 1,000 Unit Tab, 1,000 UNIT PO DAILY, (Reported) Cyanocobalamin (Vitamin B-12) 1,000 Mcg Tab, 1,000 MCG PO DAILY, (Reported) Furosemide (Furosemide) 40 Mg Tab, 40 MG PO DAILY, (Reported) Omeprazole (Omeprazole) 20 Mg Cap, 20 MG PO BID, (Reported) Potassium Chloride (Klor-Con M10) 10 Meq Tabcr, 10 MEQ PO BID, (Reported) Rosuvastatin Calcium (Crestor) 20 Mg Tab, 20 MG PO QHS, (Reported) Tizanidine HCl (Tizanidine HCl) 2 Mg Tab, 2 MG PO BID, (Reported) Tramadol HCl (Tramadol HCl) 50 Mg Tab, 50 MG PO BID, (Reported) Allergies Coded Allergies: No Known Allergies (Verified , 10/10/04) Past Medical History Medical History 1. History of prostate cancer s/p EBT and TURP in 2000 2. Hypertension 3. GERD 4. Hyperlipidemia 5. MIHIR - refuses CPAP 6. Bilateral knee osteoarthritis 7. Lumbar DJD, multilevel spinal stenosis 8. Erectile dysfunction 9. Partial complex seizure disorder 10. Diastolic CHF 11. Gout - left foot Surgical History Prostate scraping with radiation 1995 Family History Daughter has seizures due to history of a brain infection Social History * Smoker: former Smoker (Quit 50 years ago) Alcohol: Denies Drugs: javier Lives at home with his who has Alzheimer's dementia; they have homecare workers in the house 19/11 Review of Symptoms Constitutional: Denies: Chills, Malaise Eyes: Denies: Pain ENT: Reports: Head Aches (pressure behind eyes) Skin: Reports: Rash (left forearm rash; right middle finger redness/tenderness) Pulmonary: Denies: Dyspnea, Cough Cardiovascular: Denies: Chest Pain, Palpitations Gastrointestinal: Denies: Nausea, Vomiting, Abdominal Pain, Diarrhea, Constipation Genitourinary: Denies: Dysuria Hematologic: Denies: Bruising, Bleeding Excessively Musculoskeletal: Denies: Neck Pain, Back Pain Neurological: Reports: Change in speech (initially slurred, now resolved; conversation is not logical), Confusion, Denies: Weakness, Numbness, Seizures Psych: Reports: Mood Normal Physical Examination General Exam: Positive: Alert, Cooperative, No Acute Distress Eye Exam: Positive: PERRLA, Conjunctiva & lids normal, EOMI, Negative: Sclera icteric ENT Exam: Positive: Atraumatic, Mucous membr. moist/pink Neck Exam: Positive: Supple, Negative: JVD, thyromegaly, Lymphadenopathy Chest Exam: Positive: Clear to auscultation, Normal air movement, Negative: Rales, Rhonchi, Wheezing Heart Exam: Positive: Rate Normal, Regular Rhythm, Normal S1, Normal S2, Negative: Murmurs Abdomen Exam: Positive: Normal bowel sounds, Soft, Negative: Tenderness, Hepatospenomegaly Extremity Exam: Negative: Edema, Tenderness, Swelling, Other (no erythema over MCP joints) Skin Exam: Positive: Rash (Erythema, warmth, and mild swelling on left forearm with multiple excoriated areas; 5 mm raised lesion on right 3rd finger with mild surrounding erythema that is tender to palpation) Neuro Exam: Positive: Strength at 5/5 X4 ext, Normal Tone, Sensation Intact, Cranial Nerves 3-12 NL, Reflexes 2+, Negative: Normal Speech (speech is clear and intelligible, but he has word finding difficulties and is substituting words in sentences; he is able to answer simple questions and he is oriented to person, place, and date but cannot do serial 7s or spell WORLD backwards) Psych Exam: Positive: Mood NL, Oriented x 3 Vital Signs Vital Signs Date Time Temp Pulse Resp B/P (MAP) Pulse Ox O2 Delivery O2 Flow Rate FiO2 11/07/16 15:24 97.9 92 20 165/79 (107) 96 Room Air Laboratory Data Labs 24H Laboratory Tests 2 11/07/16 09:58: White Blood Count 10.4H, Red Blood Count 4.73, Hemoglobin 13.3L, Hematocrit 41.2L, Mean Corpuscular Volume 87.2, Mean Corpuscular Hemoglobin 28.1, Mean Corpuscular Hemoglobin Concent 32.2, Red Cell Distribution Width 14.1, Platelet Count 270, Neutrophils (%) (Auto) 79.2H, Lymphocytes (%) (Auto) 12.2L, Monocytes (%) (Auto) 4.2, Eosinophils (%) (Auto) 3.0, Basophils (%) (Auto) 0.4, Neutrophils # (Auto) 8.3H, Lymphocytes # (Auto) 1.3L, Monocytes # (Auto) 0.4, Eosinophils # (Auto) 0.3, Basophils # (Auto) 0.0, Large Unclassified Cells % 1.1 , Large Unclassified Cells # 0.1, Anion Gap 4L, Glomerular Filtration Rate > 60.0, Calcium Level 8.7L, Aspartate Amino Transf (AST/SGOT) 15, Alanine Aminotransferase (ALT/SGPT) 18, Alkaline Phosphatase 84, Total Bilirubin 0.6, Direct Bilirubin 0.1, Total Creatine Kinase 124, Creatine Kinase MB 2.5, Creatine Kinase MB Relative Index 2.01, Troponin I < 0.02, Total Protein 6.9, Albumin 3.4, Albumin/Globulin Ratio 0.97L, Thyroid Stimulating Hormone (TSH) 1.710 11/07/16 10:24: Urine Appearance CLEAR, Urine Color YELLOW, Urine pH 6.0, Urine Specific [place] 1.015, Urine Protein NEGATIVE, Urine Glucose (UA) NEGATIVE, Urine Ketones NEGATIVE, Urine Urobilinogen 0.2, Urine Bilirubin NEGATIVE, Urine Leukocyte Esterase NEGATIVE, Urine Blood 1+H, Urine Nitrite NEGATIVE, Urine WBC (Auto) 2, Urine RBC (Auto) 6H, Urine Hyaline Casts (Auto) 0, Urine Bacteria ( Auto) NEGATIVE, Urine Squamous Epithelial Cells 0, Urine Mucus (Auto) SMALL, Urine Sperm (Auto) 11/07/16 10:27: Bedside Glucose (Misc Panel) 176H, Lactic Acid Level 1.4 CBC/BMP Laboratory Tests 11/07/16 09:58 Red Blood Count 4.73, Mean Corpuscular Volume 87.2, Mean Corpuscular Hemoglobin 28.1, Mean Corpuscular Hemoglobin Concent 32.2, Red Cell Distribution Width 14.1 , Neutrophils (%) (Auto) 79.2 H, Lymphocytes (%) (Auto) 12.2 L, Monocytes (%) ( Auto) 4.2, Eosinophils (%) (Auto) 3.0, Basophils (%) (Auto) 0.4, Neutrophils # ( Auto) 8.3 H, Lymphocytes # (Auto) 1.3 L, Monocytes # (Auto) 0.4, Eosinophils # ( Auto) 0.3, Basophils # (Auto) 0.0 Microbiology Microbiology 11/07/16 Blood Culture, Received Pending 11/07/16 Blood Culture, Received Pending 11/07/16 Urine Culture, Received Pending RAD Interpretation STUDY: head CT normal Problems (1) Expressive aphasia Status: Acute Problem Text: Patient is able to follow simple commands and answer simple questions and he actually is oriented to person, place, and date including year. However, when he tries to speak longer sentences he has word-finding difficulties and substitutes incorrect words in sentences without seeming to realize that he is doing so. Ddx includes CVA or TIA vs. seizure (given underlying seizure disorder, though no report of any seizure activity and he has not had a seizure in >20 years) - MRI, MRA, and carotid ultrasound ordered - EEG ordered - Aspirin continued per Teleneuro recommendations - Monitor in PCU; neurochecks Q4H - Hold home furosemide and captopril to allow permissive hypertension (2) Cellulitis of left arm Status: Acute Problem Text: Left arm is warm and erythematous - this is new per family, though timing of onset is uncertain. This area is also excoriated, and I suspect he has been picking at this arm. I outlined the area with marker. He had a mild fever of 100.5 in the ED and WBCs are elevated. - He also has a tender sore on his right middle third finger; review of outpatient chart indicates he has had a wart treated in this area. I suspect redness surrounding this is reactive and that this is not acutely infected, but I outlined the area so that we can monitor. 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 - EEG ordered - Hold home tramadol due to risk of lowering seizure threshhold (4) Hyperlipidemia Status: Chronic Response to Treatment: Stable Problem Text: Continue home rosuvastatin (5) GERD (gastroesophageal reflux disease) Status: Chronic Response to Treatment: Stable (6) HTN (hypertension) Status: Chronic Response to Treatment: Stable Problem Text: Hold home captopril and furosemide x48 hours for permissive hypertension (7) MIHIR (obstructive sleep apnea) Status: Chronic Problem Text: Refuses CPAP (8) BPH (benign prostatic hyperplasia) Status: Chronic Response to Treatment: Stable (9) Diastolic CHF Status: Chronic Response to Treatment: Stable Problem Text: Hold home furosemide for permissive hypertension unless he starts to show signs of fluid overload (10) Gout Status: Chronic Response to Treatment: Stable Problem Text: No acute symptoms; continue allopurinol Plan / VTE VTE Prophylaxis Ordered?: Yes BARON STOUT MD Nov 07, 2016 16:23
[2016-11-07 17:30] VITALS: BP 137/75
[2016-11-07 20:00] VITALS: BP 162/91
[2016-11-07] MEDS: OMEPRAZOLE 20 MG CAP PO SCH (20:35)
[2016-11-07] MEDS: POTASSIUM CHLORIDE 10 MEQ SR TABLET PO SCH (20:35)
[2016-11-07] MEDS ORDERED: ASPIRIN 325 MG TAB PO SCH (21:00)
[2016-11-07] MEDS ORDERED: traMADol 50 MG TAB PO SCH (21:00)
[2016-11-07] MEDS ORDERED: CAPTOpril 6.25 MG PER 1/2 TABLET PO SCH (21:00)
[2016-11-07] MEDS ORDERED: ROSUVASTATIN 10 MG TAB (CRESTOR) PO SCH (21:00)
--- NOTE | 2016-11-07 21:51 | ECGEPIP ---
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
[2016-11-07 23:59] VITALS: BP_SYST 156; BP_SYST 166; BP_DIAS 100; BP_DIAS 98
[2016-11-08] VITALS (7 sets, daily range): BP systolic 113–157; BP diastolic 56–88
[2016-11-08] MEDS: ceFAZolin SOD 1 GM in D5W MINI-BAG PLUS 50 ML IV SCH ×3 (05:52→20:32)
[2016-11-08 06:53] LABS: BASO % 0.6 % (0.0-1.0); EOS # 0.5 K/mm3 (0.0-0.50); EOS % 8.1 % (0.0-3.0); LARGE UNSTAINED CELL # 0.2 K/mm3 (0.0-0.4); LARGE UNSTAINED CELL % 2.4 % (0.0-4.0); LYMPH # 1.7 K/mm3 (1.5-4.5); LYMPH % 27.8 % (24.0-44.0); MEAN CORPUSCULAR HEMOGLOBIN 28.1 pg (27.0-33.0); MEAN CORPUSCULAR HGB CONC 32.6 g/dl (32.0-36.5); MEAN CORPUSCULAR VOLUME 86.2 fl (80.0-96.0); MONO # 0.5 K/mm3 (0.0-0.8); MONO % 7.5 % (0.0-5.0); NEUTROPHILS # 3.2 K/mm3 (1.8-7.7); NEUTROPHILS % 53.6 % (36.0-66.0); PLATELET COUNT, AUTOMATED 238 k/mm3 (150-450); RED CELL DISTRIBUTION WIDTH 14.1 % (11.5-14.5)
[2016-11-08 07:16] LABS: ANION GAP 5 MEQ/L (8-16); BLOOD UREA NITROGEN 17 MG/DL (7-18); CALCIUM LEVEL 8.5 MG/DL (8.8-10.2); CARBON DIOXIDE LEVEL 29 MEQ/L (21-32); CHLORIDE LEVEL 105 MEQ/L (98-107); CREATININE FOR GFR 1.09 MG/DL (0.70-1.30); GLOMERULAR FILTRATION RATE > 60.0 (>35); GLUCOSE, FASTING 162 MG/DL (83-110); POTASSIUM SERUM 3.9 MEQ/L (3.5-5.1); SODIUM LEVEL 139 MEQ/L (136-145)
[2016-11-08] MEDS ORDERED: ASPIRIN 81 MG CHEW TABLET PO SCH (09:00)
[2016-11-08] MEDS ORDERED: FUROSEMIDE 40 MG TAB PO SCH (09:00)
--- NOTE | 2016-11-08 09:04 | IPNPDOC ---
Subjective Date Seen The patient was seen on 11/08/16. Subjective Chief Complaint/HPI The patient is a 81-year-old male admitted with a reason for visit of Altered Mental Status, Cellulitis Of Left Arm. Events since last encounter Pt didn't sleep well last night. Nursing is without new concerns. Reports no neuro deficit. His dgt Sara called for a report. She also advises that his brother yesterday and that they have not told him. General: Denies: Fatigue Constitutional: Denies: Chills, Fever ENT: Denies: Head Aches Skin: Reports: Rash Pulmonary: Denies: Dyspnea, Cough Cardiovascular: Denies: Chest Pain, Palpitations Gastrointestinal: Denies: Nausea, Vomiting, Diarrhea Neurological: Denies: Weakness Psych: Reports: Mood Normal Objective Physical Examination General Exam: Positive: Alert, Cooperative, No Acute Distress Eye Exam: Positive: PERRLA, EOMI, Negative: Sclera icteric ENT Exam: Positive: Atraumatic, Mucous membr. moist/pink Neck Exam: Positive: Supple, Negative: JVD, thyromegaly, Lymphadenopathy Chest Exam: Positive: Clear to auscultation, Normal air movement, Negative: Rales, Rhonchi, Wheezing Heart Exam: Positive: Rate Normal, Regular Rhythm, Normal S1, Normal S2, Negative: Murmurs Abdomen Exam: Positive: Normal bowel sounds, Soft, Negative: Tenderness Extremity Exam: Negative: Edema, Tenderness, Swelling Skin Exam: Positive: Rash (Erythema, warmth, and mild swelling on left forearm with multiple excoriated areas; 5 mm raised lesion on right 3rd finger with mild surrounding erythema that is tender to palpation) Neuro Exam: Positive: Normal Speech (speech is clear and intelligible, he converses normally.), Strength at 5/5 X4 ext, Normal Tone, Sensation Intact, Reflexes 2+ Psych Exam: Positive: Mood NL, Oriented x 3 Assessment /Plan Problems (1) CVA (cerebral vascular accident) Status: Acute Response to Treatment: Stable Discussed With: Nurse, Patient, Family with Pt Consent Problem Specific Plan: Monitor Clinically, Repeat Labs Problem Text: Pt with subacute CVA on MRI brain, I spoke with the pt and with his dgt Sara. At this time he doesn't appear to have any significant deficits and his speech/word finding seems to have improved from yest. He is on ASA 325 mg (HD), Crestor 20 mg daily, (HD), will increase dose to high dose. Address with attending her discussion with Neuro. MRA brain- vascular disease MRI brain - Subacute L parietal infarct, vasc disease, old lacunar infarcts Carotid US - 16-49% narrowing B ECHO pending. (2) Expressive aphasia Status: Acute Problem Text: 11/08 - seems to be better today. 11/07 Patient is able to follow simple commands and answer simple questions and he actually is oriented to person, place, and date including year. However, when he tries to speak longer sentences he has word-finding difficulties and substitutes incorrect words in sentences without seeming to realize that he is doing so. Ddx includes CVA or TIA vs. seizure (given underlying seizure disorder , though no report of any seizure activity and he has not had a seizure in >20 years) - MRI, MRA, and carotid ultrasound ordered - EEG ordered - Aspirin continued per Teleneuro recommendations - Monitor in PCU; neurochecks Q4H - Hold home furosemide and captopril to allow permissive hypertension (3) Cellulitis of left arm Status: Acute Problem Text: 11/08 - Will add hydrocortisone to help with the itching, await blood cultures. T Max 99.4, WBC 6, cont with Cefazolin, consider changing to PO in AM. 11/07 Left arm is warm and erythematous - this is new per family, though timing of onset is uncertain. This area is also excoriated, and I suspect he has been picking at this arm. I outlined the area with marker. He had a mild fever of 100.5 in the ED and WBCs are elevated. - He also has a tender sore on his right middle third finger; review of outpatient chart indicates he has had a wart treated in this area. I suspect redness surrounding this is reactive and that this is not acutely infected, but I outlined the area so that we can monitor. 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 - EEG ordered - Hold home tramadol due to risk of lowering seizure threshhold (5) Hyperlipidemia Status: Chronic Response to Treatment: Stable Problem Text: Continue home rosuvastatin (6) GERD (gastroesophageal reflux disease) Status: Chronic Response to Treatment: Stable (7) HTN (hypertension) Status: Chronic Response to Treatment: Stable Problem Text: Hold home captopril and furosemide x48 hours for permissive hypertension (8) MIHIR (obstructive sleep apnea) Status: Chronic Problem Text: Refuses CPAP (9) BPH (benign prostatic hyperplasia) Status: Chronic Response to Treatment: Stable (10) Diastolic CHF Status: Chronic Response to Treatment: Stable Problem Text: Hold home furosemide for permissive hypertension unless he starts to show signs of fluid overload (11) Gout Status: Chronic Response to Treatment: Stable Problem Text: No acute symptoms; continue allopurinol Plan/VTE VTE Prophylaxis Ordered?: Yes Plan Family Medicine Attending Note: I saw and examined Mr. Chino this afternoon; I d/w VINI Ortiz and I agree with her note above. His speech is greatly improved today and he is alert, oriented, and able to carry on a conversation. He has no focal neuro deficits. As he had a recurrent CVA on ASA 325 mg daily, I recommended adding plavix 75 mg daily - I counseled him that this could increase his risk of bleeding and bruising and he verbalized understanding and he agreed to start plavix. I recommended that we monitor him again tonight and follow-up blood cultures - his left arm looks much better today. We can hopefully d/c home tomorrow on oral antibiotics. (KEDejon) VS, I&O, 24H, Fishbone Vital Signs/I&O Vital Signs Date Time Temp Pulse Resp B/P (MAP) Pulse Ox O2 Delivery O2 Flow Rate FiO2 11/08/16 08:00 97.9 82 22 157/88 (111) 96 Room Air I&O- Last 24 Hours up to 6 AM 11/08/16 06:00 Intake Total 0 ml Output Total 1200 ml Balance -1200 ml Laboratory Data 24H LABS Laboratory Tests 2 11/07/16 09:58: White Blood Count 10.4H, Red Blood Count 4.73, Hemoglobin 13.3L, Hematocrit 41.2L, Mean Corpuscular Volume 87.2, Mean Corpuscular Hemoglobin 28.1, Mean Corpuscular Hemoglobin Concent 32.2, Red Cell Distribution Width 14.1, Platelet Count 270, Neutrophils (%) (Auto) 79.2H, Lymphocytes (%) (Auto) 12.2L, Monocytes (%) (Auto) 4.2, Eosinophils (%) (Auto) 3.0, Basophils (%) (Auto) 0.4, Neutrophils # (Auto) 8.3H, Lymphocytes # (Auto) 1.3L, Monocytes # (Auto) 0.4, Eosinophils # (Auto) 0.3, Basophils # (Auto) 0.0, Large Unclassified Cells % 1.1 , Large Unclassified Cells # 0.1, Anion Gap 4L, Glomerular Filtration Rate > 60.0, Calcium Level 8.7L, Aspartate Amino Transf (AST/SGOT) 15, Alanine Aminotransferase (ALT/SGPT) 18, Alkaline Phosphatase 84, Total Bilirubin 0.6, Direct Bilirubin 0.1, Total Creatine Kinase 124, Creatine Kinase MB 2.5, Creatine Kinase MB Relative Index 2.01, Troponin I < 0.02, Total Protein 6.9, Albumin 3.4, Albumin/Globulin Ratio 0.97L, Thyroid Stimulating Hormone (TSH) 1.710 11/07/16 10:24: Urine Appearance CLEAR, Urine Color YELLOW, Urine pH 6.0, Urine Specific [place] 1.015, Urine Protein NEGATIVE, Urine Glucose (UA) NEGATIVE, Urine Ketones NEGATIVE, Urine Urobilinogen 0.2, Urine Bilirubin NEGATIVE, Urine Leukocyte Esterase NEGATIVE, Urine Blood 1+H, Urine Nitrite NEGATIVE, Urine WBC (Auto) 2, Urine RBC (Auto) 6H, Urine Hyaline Casts (Auto) 0, Urine Bacteria ( Auto) NEGATIVE, Urine Squamous Epithelial Cells 0, Urine Mucus (Auto) SMALL, Urine Sperm (Auto) 11/07/16 10:27: Bedside Glucose (Misc Panel) 176H, Lactic Acid Level 1.4 11/08/16 06:30: White Blood Count 6.0, Red Blood Count 4.34, Hemoglobin 12.2L, Hematocrit 37.4L , Mean Corpuscular Volume 86.2, Mean Corpuscular Hemoglobin 28.1, Mean Corpuscular Hemoglobin Concent 32.6, Red Cell Distribution Width 14.1, Platelet Count 238, Neutrophils (%) (Auto) 53.6, Lymphocytes (%) (Auto) 27.8, Monocytes ( %) (Auto) 7.5H, Eosinophils (%) (Auto) 8.1H, Basophils (%) (Auto) 0.6, Neutrophils # (Auto) 3.2, Lymphocytes # (Auto) 1.7, Monocytes # (Auto) 0.5, Eosinophils # (Auto) 0.5, Basophils # (Auto) 0.0, Large Unclassified Cells % 2.4 , Large Unclassified Cells # 0.2, Anion Gap 5L, Glomerular Filtration Rate > 60.0, Calcium Level 8.5L, Blood Urea Nitrogen 17, Creatinine 1.09, Sodium Level 139, Potassium Level 3.9, Chloride Level 105, Carbon Dioxide Level 29 CBC/BMP Laboratory Tests 11/07/16 09:58 Red Blood Count 4.73, Mean Corpuscular Volume 87.2, Mean Corpuscular Hemoglobin 28.1, Mean Corpuscular Hemoglobin Concent 32.2, Red Cell Distribution Width 14.1 , Neutrophils (%) (Auto) 79.2 H, Lymphocytes (%) (Auto) 12.2 L, Monocytes (%) ( Auto) 4.2, Eosinophils (%) (Auto) 3.0, Basophils (%) (Auto) 0.4, Neutrophils # ( Auto) 8.3 H, Lymphocytes # (Auto) 1.3 L, Monocytes # (Auto) 0.4, Eosinophils # ( Auto) 0.3, Basophils # (Auto) 0.0 11/08/16 06:30 Red Blood Count 4.34, Mean Corpuscular Volume 86.2, Mean Corpuscular Hemoglobin 28.1, Mean Corpuscular Hemoglobin Concent 32.6, Red Cell Distribution Width 14.1 , Neutrophils (%) (Auto) 53.6, Lymphocytes (%) (Auto) 27.8, Monocytes (%) (Auto ) 7.5 H, Eosinophils (%) (Auto) 8.1 H, Basophils (%) (Auto) 0.6, Neutrophils # ( Auto) 3.2, Lymphocytes # (Auto) 1.7, Monocytes # (Auto) 0.5, Eosinophils # (Auto ) 0.5, Basophils # (Auto) 0.0, Calcium Level 8.5 L Microbiology Microbiology 11/07/16 Blood Culture, Received Pending 11/07/16 Blood Culture, Received Pending 11/07/16 Urine Culture - Final, Complete BELÉN OBRIEN PA-C Nov 08, 2016 09:04 BARON STOUT MD Nov 08, 2016 14:49
[2016-11-08] MEDS: ALLOPURINOL 100 MG TAB PO SCH (10:15)
[2016-11-08] MEDS: OMEPRAZOLE 20 MG CAP PO SCH ×2 (10:15→20:30)
[2016-11-08] MEDS: CYANOCOBALAMIN 500 MCG TAB PO SCH (10:16)
[2016-11-08] MEDS: POTASSIUM CHLORIDE 10 MEQ SR TABLET PO SCH ×2 (10:16→20:31)
[2016-11-08] MEDS: VITAMIN D 1,000 INTERNATIONAL UNITS TABLET PO SCH (10:16)
[2016-11-08] MEDS ORDERED: SLF 3 ML SYR IV PRN (11:15)
[2016-11-08] MEDS: SLF 3 ML SYR IV SCH ×2 (13:37→20:53)
[2016-11-08] MEDS: CLOPIDOGREL 75 MG TAB PO SCH (15:42)
[2016-11-08] MEDS ORDERED: ENOXAPARIN 40 MG/0.4 ML SYRINGE (J1650) SC SCH (21:00)
[2016-11-08] MEDS ORDERED: ROSUVASTATIN 10 MG TAB (CRESTOR) PO SCH (21:00)
[2016-11-08] MEDS ORDERED: traMADol 50 MG TAB PO PRN (22:45)
[2016-11-09] MEDS: ceFAZolin SOD 1 GM in D5W MINI-BAG PLUS 50 ML IV SCH (04:58)
[2016-11-09] MEDS: SLF 3 ML SYR IV SCH (04:58)
[2016-11-09 06:00] VITALS: BP 136/73
[2016-11-09 06:36] LABS: BASO % 0.5 % (0.0-1.0); EOS # 0.4 K/mm3 (0.0-0.50); EOS % 6.8 % (0.0-3.0); LARGE UNSTAINED CELL # 0.2 K/mm3 (0.0-0.4); LARGE UNSTAINED CELL % 2.6 % (0.0-4.0); LYMPH # 1.9 K/mm3 (1.5-4.5); MEAN CORPUSCULAR HEMOGLOBIN 28.3 pg (27.0-33.0); MEAN CORPUSCULAR HGB CONC 31.8 g/dl (32.0-36.5); MEAN CORPUSCULAR VOLUME 89.1 fl (80.0-96.0); MONO # 0.5 K/mm3 (0.0-0.8); MONO % 8.9 % (0.0-5.0); NEUTROPHILS % 51.2 % (36.0-66.0); PLATELET COUNT, AUTOMATED 219 k/mm3 (150-450); RED CELL DISTRIBUTION WIDTH 14.1 % (11.5-14.5); WHITE BLOOD COUNT 5.9 K/mm3 (4.0-10.0)
[2016-11-09 06:58] LABS: ANION GAP 6 MEQ/L (8-16); BLOOD UREA NITROGEN 14 MG/DL (7-18); CALCIUM LEVEL 8.3 MG/DL (8.8-10.2); CARBON DIOXIDE LEVEL 28 MEQ/L (21-32); CHLORIDE LEVEL 105 MEQ/L (98-107); CREATININE FOR GFR 1.03 MG/DL (0.70-1.30); GLOMERULAR FILTRATION RATE > 60.0 (>35); GLUCOSE, FASTING 147 MG/DL (83-110); POTASSIUM SERUM 4.2 MEQ/L (3.5-5.1); SODIUM LEVEL 139 MEQ/L (136-145)
[2016-11-09] MEDS: OMEPRAZOLE 20 MG CAP PO SCH (08:28)
[2016-11-09] MEDS: POTASSIUM CHLORIDE 10 MEQ SR TABLET PO SCH (08:28)
[2016-11-09] MEDS: VITAMIN D 1,000 INTERNATIONAL UNITS TABLET PO SCH (08:29)
[2016-11-09] MEDS: ALLOPURINOL 100 MG TAB PO SCH (08:29)
[2016-11-09] MEDS: CYANOCOBALAMIN 500 MCG TAB PO SCH (08:29)
[2016-11-09] MEDS: CLOPIDOGREL 75 MG TAB PO SCH (08:29)
[2016-11-09] MEDS: ACETAMINOPHEN TAB 650MG DOSE (2X325MG) PO PRN (08:35)
[2016-11-09 10:00] VITALS: BP 134/87
[2016-11-09] MEDS ORDERED: CLOP75TA2 PO (10:30)
[2016-11-09] MEDS ORDERED: KEFL500C17 PO (10:30)
--- NOTE | 2016-11-09 17:30 | EEG ---
DATE OF PROCEDURE: 11/08/2016 EEG NUMBER: [id number] REASON FOR EEG: Altered mental status, rule out seizures and assess degree of encephalopathy. HISTORY: The patient is an 81-year-old man who was admitted at [facility] due to altered mental status. This EEG was done to rule out epileptic potential and assess degree of encephalopathy. TECHNICAL DESCRIPTION: This digital EEG was recorded by 21 scalp, ear and two EKG electrodes and was reviewed in bipolar and referential montages following reformatting in 10-20 international electrode placement system. INTERPRETATION: The patient was noted to be in awake and drowsy states during this EEG. Resting awake background rhythm consisted of 9 Hz alpha activity measuring 15-40 microvolts in amplitude, which was symmetric and reactive to eye opening. Attenuation of posterior dominant rhythm was seen during transition into drowsiness. Stage I and II sleep were reviewed. Intermittent theta and delta slowing was noted in the left temporal head region and left parietal head region. No epileptiform abnormalities were seen. No clinical or electrographic seizures were recorded. EKG revealed normal sinus rhythm. Hyperventilation could not be performed. Photic stimulation remained unremarkable. CONCLUSION: This EEG in awake, drowsy states, stage I and II sleep is abnormal due to presence of intermittent left temporal and parietal slowing consistent with focal cortical structural or functional abnormality. No epileptiform abnormalities were seen. Clinical [facility] recommended. [facility]
--- NOTE | 2016-11-10 06:00 | DSES ---
DATE OF ADMISSION: 11/07/2016 DATE OF DISCHARGE: 11/09/2016 BRIEF HISTORY AND PHYSICAL The patient is an 81-year-old patient of Dr. Dyson who presented with confusion and difficulty speaking that developed upon waking in the morning. No facial weakness or facial droop. He was evaluated by [facility] and they recommended against tissue plasminogen activator (tPA. He did have a history of a seizure in the past with only symptom was confusion. He is not on antiepileptic medications at this time. He also has a sunburn on his left arm. Past medical history is significant for congestive heart failure diastolic, ejection fraction of 60%, prostate cancer status post external beam therapy (EBT), hypertension, gastroesophageal reflux disease, hyperlipidemia, history of right nephrolithiasis times two with secondary hydronephrosis, benign prostatic hypertrophy ( BPH), obstructive sleep apnea, noncompliant or refuses continuous positive airway pressure (C-PAP) , bilateral knee arthritis, erectile dysfunction, partial complex seizure disorder , defers anti-epileptic drugs (Vangie), recurrent history of gout. PERTINENT LABS ON ADMISSION: White count 10.4, hemoglobin 13.3, platelets 270,000. Sodium 136, potassium 4.2 , BUN 15, creatinine 1.4, glucose 187. Urine fairly unremarkable. IMAGING: CT of the head showed old basal ganglia lacunar infarcts, small vessel ischemic disease and mild volume loss. Chest x-ray showed cardiomegaly. MRI of the brain showed a punctate subacute infarction left parietal lobe. MRA was unremarkable and carotid ultrasound showed 16%-49% narrowing bilaterally. HOSPITAL COURSE: 1. The patient was admitted for subacute cerebrovascular accident (CVA). Aspirin was switched to Plavix. His furosemide and captopril been held to prevent hypotension. His blood pressure at the time of discharge is 130, but was 113 overnight averaging around 130 to 140. At this time his captopril and Lasix remain on hold, and he will followup in the office to have these restarted as needed. He will be discharged home on Plavix. His mental status is at baseline and his speech is normal and he has no focal deficits. He is safe for discharge per physical therapy. He is also on Crestor, the dose of which was not changed. 2. Cellulitis left arm. He has erythematous, raised maculopapular area on his left forearm felt to be cellulitic, put on cephazolin. There is some clinical improvement with this. He will be switched to Keflex upon discharge. 3. History of partial complex seizures. There was discussion of getting an electroencephalogram (EEG) while in the hospital although it does not look to me that this was completed. Will defer to primary care provider (PCP) whether it is reasonable to obtain an EEG as an outpatient. It should be noted that he is on tramadol as an outpatient which can lower seizure threshold. I have discontinued this, but discussion will need to be made with his PCP as to whether this is safe for future use. 4. History of hypertension. Again, captopril and Lasix are on hold. He is compensated from the standpoint of his diastolic congestive heart failure. DISPOSITION: He is stable for discharge home to followup with Dr. Dyson next week. MEDICATIONS: - Keflex 500 mg twice a day for 10 days - Plavix 75 mg daily - allopurinol 100 mg daily - vitamin D 1000 international units daily - vitamin B12 1000 mcg daily - omeprazole 20 mg twice a day - potassium 10 mEq twice a day - Crestor 20 mg at bedtime His captopril, furosemide, tizanidine tramadol and aspirin have been held. DISCHARGE DIAGNOSES 1. Subacute cerebrovascular accident (CVA). 2. Altered mental status. 3. History of partial complex seizures. 4. Cellulitis left arm 5. History of hypertension. 6. Diastolic congestive heart failure, chronic. [facility]
== END 2016-11-09 12:30 | disposition home or self-care (01) | DRG 65 ==
LOC: M ED 09:44 → M ED INP 12:29 → M PCU 17:40 → M MSPAV 11-08 16:25
PROVIDERS: ADMIT Family Medicine; ATTEND Family Medicine
DX: I63.9 Cerebral infarction, unspecified (principal); L03.114 Cellulitis of left upper limb; I50.32 Chronic diastolic (congestive) heart failure; G40.209 Localization-related (focal) (partial) symptomatic epilepsy and epileptic syndromes with complex partial seizures, not intractable, without status epilepticus; I11.0 Hypertensive heart disease with heart failure; K21.9 Gastro-esophageal reflux disease without esophagitis; E78.5 Hyperlipidemia, unspecified; G47.33 Obstructive sleep apnea (adult) (pediatric); M17.0 Bilateral primary osteoarthritis of knee; R47.01 Aphasia; M51.36 Other intervertebral disc degeneration, lumbar region; N40.0 Benign prostatic hyperplasia without lower urinary tract symptoms; N52.9 Male erectile dysfunction, unspecified; M10.072 Idiopathic gout, left ankle and foot; Z87.891 Personal history of nicotine dependence; Z79.82 Long term (current) use of aspirin; Z79.899 Other long term (current) drug therapy; Z85.46 Personal history of malignant neoplasm of prostate; Z79.891 Long term (current) use of opiate analgesic; Z91.19 Patient's noncompliance with other medical treatment and regimen; Z87.442 Personal history of urinary calculi

== ENCOUNTER → 2017-01-03 | Outpatient (REF) | payer OTHER ==
[~2017-01-03] MED LIST changes: +ALLO100T PO; -ASPIRIN 81 MG CHEW TABLET PO SCH; +CLOP75TA2 PO; +KEFL500C17 PO
[2017-01-03 15:12] LABS: ALBUMIN 3.5 GM/DL (3.2-5.2); ALBUMIN/GLOBULIN RATIO 1.06 (1.00-1.93); ALKALINE PHOSPHATASE 72 U/L (45-117); ALT/SGPT 16 U/L (12-78); ANION GAP 8 MEQ/L (8-16); AST/SGOT 8 U/L (15-37); BILIRUBIN,TOTAL 0.5 MG/DL (0.2-1.0); BLOOD UREA NITROGEN 22 MG/DL (7-18); CALCIUM LEVEL 8.5 MG/DL (8.8-10.2); CARBON DIOXIDE LEVEL 32 MEQ/L (21-32); CHLORIDE LEVEL 100 MEQ/L (98-107); CREATININE FOR GFR 1.15 MG/DL (0.70-1.30); GLOMERULAR FILTRATION RATE > 60.0 (>35); GLUCOSE, FASTING 229 MG/DL (83-110); POTASSIUM SERUM 3.9 MEQ/L (3.5-5.1); SODIUM LEVEL 140 MEQ/L (136-145); TOTAL PROTEIN 6.8 GM/DL (6.4-8.2); URIC ACID 7.6 MG/DL (3.5-7.2)
== END ==
LOC: M SFHCPLAZ 10:31
PROVIDERS: ATTEND Family Medicine
DX: I10 Essential (primary) hypertension (principal); M10.9 Gout, unspecified

== ENCOUNTER → 2017-01-24 | Outpatient (CLI) | payer OTHER ==
--- NOTE | 2017-01-24 12:34 | REP ---
BILATERAL KNEE, TEN VIEWS: HISTORY: Osteoarthritis. LEFT KNEE, FIVE VIEWS: There is no acute fracture or dislocation. There is narrowing of the joint spaces. There is sclerosis adjacent to the medial knee joint space. Osteophytes are present. A small suprapatellar effusion is present. Calcifications are present medial and lateral to the distal femur. This represents ligamentous or tendon calcification. The bony structure is osteopenic. IMPRESSION: Degenerative change as described above. RIGHT KNEE, FIVE VIEWS: There is no acute fracture or dislocation. There is narrowing of the joint spaces. Sclerosis is present adjacent to the lateral knee joint space. Osteophytes are present. A small suprapatellar joint effusion is present. Calcifications are present medial and lateral to the distal femur. This represents ligamentous or tendon calcification. The bony structure is osteopenic. IMPRESSION: Degenerative change as described above. Signed by Fernando Jaimes MD 01/24/2017 12:37 P
== END ==
LOC: M WUC 10:48
PROVIDERS: ATTEND Physician Assistant Medical
DX: M17.0 Bilateral primary osteoarthritis of knee (principal)

== ENCOUNTER → 2017-04-08 | Outpatient (REF) | payer OTHER ==
[2017-04-08 12:10] LABS: BASO % 0.5 % (0.0-1.0); EOS # 0.3 10^3/uL (0.0-0.50); EOS % 2.8 % (0.0-3.0); IMMATURE GRANULOCYTE % 0.2 % (0-0); LYMPH # 1.7 10^3/uL (1.5-4.5); LYMPH % 19.7 % (24.0-44.0); MEAN CORPUSCULAR HEMOGLOBIN 26.7 pg (27.0-33.0); MEAN CORPUSCULAR HGB CONC 31.3 g/dl (32.0-36.5); MEAN CORPUSCULAR VOLUME 85.3 fl (80.0-96.0); MONO # 0.9 10^3/uL (0.0-0.8); MONO % 10.3 % (0.0-5.0); NEUTROPHILS # 5.9 10^3/uL (1.8-7.7); NEUTROPHILS % 66.5 % (36.0-66.0); PLATELET COUNT, AUTOMATED 287 10^3/uL (150-450); RED CELL DISTRIBUTION WIDTH 15.7 % (11.5-14.5); WHITE BLOOD COUNT 8.8 10^3/uL (4.0-10.0)
[2017-04-08 12:48] LABS: VITAMIN B12 LEVEL 1415 PG/ML (247-911)
[2017-04-08 12:59] LABS: ALBUMIN 3.5 GM/DL (3.2-5.2); ALKALINE PHOSPHATASE 85 U/L (45-117); ALT/SGPT 14 U/L (12-78); ANION GAP 8 MEQ/L (8-16); AST/SGOT 9 U/L (7-37); BILIRUBIN,TOTAL 0.6 MG/DL (0.2-1.0); BLOOD UREA NITROGEN 15 MG/DL (7-18); CALCIUM LEVEL 9.1 MG/DL (8.8-10.2); CARBON DIOXIDE LEVEL 31 MEQ/L (21-32); CHLORIDE LEVEL 101 MEQ/L (98-107); CHOLESTEROL LEVEL 154 MG/DL (<200); CREATININE FOR GFR 1.06 MG/DL (0.70-1.30); FERRITIN 9 NG/ML (26-388); GLOMERULAR FILTRATION RATE > 60.0 (>35); GLUCOSE, FASTING 188 MG/DL (83-110); MAGNESIUM LEVEL 2.1 MG/DL (1.8-2.4); PERCENT SATURATION 19.6 % (19.7-50.0); POTASSIUM SERUM 4.3 MEQ/L (3.5-5.1); SODIUM LEVEL 140 MEQ/L (136-145); TOTAL IRON BINDING CAPACITY 337 UG/DL (250-450); TRIGLYCERIDES LEVEL 80 MG/DL (<150)
[2017-04-09 09:35] LABS: PRETREATED FOLATE FOR RBCFOL 16.6 NG/ML
== END ==
LOC: M SFHCPLAZ 10:25
PROVIDERS: ATTEND Family Medicine
DX: N18.3 Chronic kidney disease, stage 3 (moderate) (principal); M10.9 Gout, unspecified; E11.8 Type 2 diabetes mellitus with unspecified complications; E53.8 Deficiency of other specified B group vitamins; G40.909 Epilepsy, unspecified, not intractable, without status epilepticus; C61 Malignant neoplasm of prostate; E78.5 Hyperlipidemia, unspecified
CPT/HCPCS: 36415; 80053; 80061; 80180; 82550; 82607; 82728; 82747; 83036; 83550; 83735; 85025; G0103

== ENCOUNTER → 2017-08-01 | Outpatient (REF) | payer OTHER ==
[2017-08-01 11:36] LABS: BASO % 0.4 % (0.0-1.0); EOS # 0.4 10^3/uL (0.0-0.50); EOS % 5.3 % (0.0-3.0); HEMATOCRIT 45.5 % (42.0-52.0); HEMOGLOBIN 14.6 g/dl (13.5-17.5); IMMATURE GRANULOCYTE % 0.1 % (0-3.0); LYMPH # 1.8 10^3/uL (1.5-4.5); LYMPH % 26.2 % (24.0-44.0); MEAN CORPUSCULAR HGB CONC 32.1 g/dl (32.0-36.5); MEAN CORPUSCULAR VOLUME 93.6 fl (80.0-96.0); MONO # 0.7 10^3/uL (0.0-0.8); MONO % 9.8 % (0.0-5.0); NEUTROPHILS % 58.2 % (36.0-66.0); PLATELET COUNT, AUTOMATED 257 10^3/uL (150-450); RED BLOOD COUNT 4.86 10^6/uL (4.30-6.10); RED CELL DISTRIBUTION WIDTH 15.4 % (11.5-14.5); RETICULOCYTE # 66.6 10^9/L (17-77); RETICULOCYTE % 1.4 % (0.5-1.5); WHITE BLOOD COUNT 6.8 10^3/uL (4.0-10.0)
[2017-08-01 12:13] LABS: ALBUMIN 3.6 GM/DL (3.2-5.2); ANION GAP 7 MEQ/L (8-16); BLOOD UREA NITROGEN 19 MG/DL (7-18); CALCIUM LEVEL 9.1 MG/DL (8.8-10.2); CARBON DIOXIDE LEVEL 31 MEQ/L (21-32); CHLORIDE LEVEL 107 MEQ/L (98-107); CREATININE FOR GFR 1.09 MG/DL (0.70-1.30); FERRITIN 17 NG/ML (26-388); GLOMERULAR FILTRATION RATE > 60.0 (>35); GLUCOSE, FASTING 145 MG/DL (70-100); NT-PRO BNP 256 PG/ML (<450); PHOSPHORUS LEVEL 3.4 MG/DL (2.5-4.9); POTASSIUM SERUM 4.4 MEQ/L (3.5-5.1); SODIUM LEVEL 145 MEQ/L (136-145); URIC ACID 4.7 MG/DL (3.5-7.2)
[2017-08-02 10:24] LABS: CARCINOEMBRYONIC ANTIGEN 5.6 NG/ML (<2.5)
[2017-08-05 14:23] LABS: ALBUMIN 3.83 GM/DL (3.29-5.55); ALBUMIN % 54.7 % (55.8-66.1); ALPHA-1-GLOBULIN % 3.8 % (2.9-4.9); ALPHA-1-GLOBULINS 0.27 GM/DL (0.17-0.41); ALPHA-2-GLOBULINS 0.91 GM/DL (0.42-0.99); BETA-1-GLOBULINS 0.43 GM/DL (0.28-0.60); BETA-1-GLOBULINS % 6.1 % (4.7-7.2); BETA-2-GLOBULINS 0.32 GM/DL (0.19-0.55); BETA-2-GLOBULINS % 4.5 % (3.2-6.5); GAMMA GLOBULIN % 17.9 % (11.1-18.8); GAMMA GLOBULINS 1.25 GM/DL (0.65-1.58)
== END ==
LOC: M SFHCPLAZ 09:19
DX: N18.3 Chronic kidney disease, stage 3 (moderate) (principal); D50.9 Iron deficiency anemia, unspecified; M10.9 Gout, unspecified
CPT/HCPCS: 82378

== ENCOUNTER → 2017-12-10 | Outpatient (REF) | payer OTHER ==
[2017-12-10 10:22] LABS: ALBUMIN 3.5 GM/DL (3.2-5.2); ALKALINE PHOSPHATASE 71 U/L (45-117); ALT/SGPT 18 U/L (12-78); ANION GAP 7 MEQ/L (8-16); AST/SGOT 12 U/L (7-37); BILIRUBIN,TOTAL 0.6 MG/DL (0.2-1.0); BLOOD UREA NITROGEN 21 MG/DL (7-18); CALCIUM LEVEL 8.6 MG/DL (8.8-10.2); CARBON DIOXIDE LEVEL 31 MEQ/L (21-32); CHLORIDE LEVEL 106 MEQ/L (98-107); CHOLESTEROL LEVEL 143 MG/DL (<200); CHOLESTEROL RISK RATIO 2.803 (<5); CPK CREATINE PHOSPHOKINASE 128 U/L (39-308); CREATININE FOR GFR 1.08 MG/DL (0.70-1.30); FERRITIN 40 NG/ML (26-388); GLOMERULAR FILTRATION RATE > 60.0 (>35); GLUCOSE, FASTING 151 MG/DL (70-100); HDL CHOLESTEROL 51 MG/DL (>40); IRON (FE) 131 UG/DL (65-175); LDL CHOLESTEROL 68.6 MG/DL (<100); NON-HDL-C 92 MG/DL; PERCENT SATURATION 49.6 % (19.7-50.0); POTASSIUM SERUM 4.3 MEQ/L (3.5-5.1); SODIUM LEVEL 144 MEQ/L (136-145); TOTAL IRON BINDING CAPACITY 264 UG/DL (250-450); TRIGLYCERIDES LEVEL 117 MG/DL (<150)
[2017-12-10 10:40] LABS: ESTIMATED AVERAGE GLUCOSE 148 MG/DL (60-110); HEMOGLOBIN A1c 6.8 %
[2017-12-10 16:39] LABS: TOTAL 25(OH) VITAMIN D 25.7 NG/ML (30.0-100.0); VITAMIN B12 LEVEL 1024 PG/ML (247-911)
[2017-12-12 14:16] LABS: LEVETIRACETAM (KEPPRA) None Detected ug/mL (10.0-40.0)
== END ==
LOC: M SFHCPLAZ 08:07
DX: D50.9 Iron deficiency anemia, unspecified (principal); N18.3 Chronic kidney disease, stage 3 (moderate); G40.909 Epilepsy, unspecified, not intractable, without status epilepticus; E11.8 Type 2 diabetes mellitus with unspecified complications; E78.5 Hyperlipidemia, unspecified; E53.8 Deficiency of other specified B group vitamins; E55.9 Vitamin D deficiency, unspecified
CPT/HCPCS: 82550

== ENCOUNTER → 2018-04-24 | Outpatient (REF) | payer OTHER ==
[~2018-04-24] MED LIST changes: -DOXY-278 PO; +DOXY-350 PO; +KLOR10TA76 PO; -POTA10CA PO
[2018-04-24 11:16] LABS: BASO % 0.4 % (0.0-1.0); EOS # 0.4 10^3/uL (0.0-0.50); EOS % 5.4 % (0.0-3.0); HEMATOCRIT 46.9 % (42.0-52.0); HEMOGLOBIN 14.9 g/dl (13.5-17.5); LYMPH # 1.9 10^3/uL (1.5-4.5); LYMPH % 28.1 % (24.0-44.0); MEAN CORPUSCULAR HEMOGLOBIN 31.1 pg (27.0-33.0); MEAN CORPUSCULAR HGB CONC 31.8 g/dl (32.0-36.5); MEAN CORPUSCULAR VOLUME 97.9 fl (80.0-96.0); MONO # 0.6 10^3/uL (0.0-0.8); MONO % 8.5 % (0.0-5.0); NEUTROPHILS # 3.9 10^3/uL (1.8-7.7); NEUTROPHILS % 57.2 % (36.0-66.0); PLATELET COUNT, AUTOMATED 244 10^3/uL (150-450); RED BLOOD COUNT 4.79 10^6/uL (4.30-6.10); WHITE BLOOD COUNT 6.8 10^3/uL (4.0-10.0)
[2018-04-24 11:27] LABS: ALBUMIN 3.6 GM/DL (3.2-5.2); ALT/SGPT 24 U/L (12-78); BILIRUBIN,TOTAL 0.5 MG/DL (0.2-1.0); BLOOD UREA NITROGEN 19 MG/DL (7-18); CALCIUM LEVEL 8.7 MG/DL (8.8-10.2); CARBON DIOXIDE LEVEL 30 MEQ/L (21-32); CHLORIDE LEVEL 105 MEQ/L (98-107); CREATININE FOR GFR 1.12 MG/DL (0.70-1.30); GLOMERULAR FILTRATION RATE > 60.0 (>35); GLUCOSE, FASTING 157 MG/DL (70-100); MAGNESIUM LEVEL 2.3 MG/DL (1.8-2.4); POTASSIUM SERUM 4.4 MEQ/L (3.5-5.1); SODIUM LEVEL 143 MEQ/L (136-145); TOTAL PROTEIN 6.9 GM/DL (6.4-8.2); URIC ACID 7.5 MG/DL (3.5-7.2)
[2018-04-24 11:28] LABS: TOTAL 25(OH) VITAMIN D 14.6 NG/ML (30.0-100.0)
[2018-04-24 11:29] LABS: PTH INTACT 138.5 PG/ML (18.5-88.0)
[2018-04-24 11:50] LABS: HEMOGLOBIN A1c 7.7 %
== END ==
LOC: M SFHCPLAZ 09:16
PROVIDERS: ATTEND Family Medicine
DX: D50.9 Iron deficiency anemia, unspecified (principal); N18.3 Chronic kidney disease, stage 3 (moderate); E78.5 Hyperlipidemia, unspecified; E11.8 Type 2 diabetes mellitus with unspecified complications; G40.909 Epilepsy, unspecified, not intractable, without status epilepticus; M10.9 Gout, unspecified; C61 Malignant neoplasm of prostate

== ENCOUNTER → 2018-05-02 | Outpatient (REF) | payer MEDICARE | LOC: M SFHCPLAZ 15:44 | PROVIDERS: ATTEND Family Medicine | DX: R60.9 Edema, unspecified (principal); Z23 Encounter for immunization | CPT/HCPCS: 36415; 83880; 85379; 90682; G0008; G0463 ==

== ENCOUNTER → 2018-05-06 | Outpatient (CLI) | payer MEDICARE ==
--- NOTE | 2018-05-07 06:29 | REP ---
Clinical: Right lower extremity edema . Technique: Barros scale and color Doppler evaluation using linear high frequency transducer. Findings: Ultrasound examination of the right lower extremity deep venous structures from the common femoral vein to the popliteal vein demonstrates normal compressibility flow and wave patterns in response to respiration and augmentation. There is no evidence for deep venous thrombosis. Frank's cyst in the popliteal fossa measures 3.5 x 2.1 x 2.7 cm. Impression: No evidence for deep venous thrombosis. Frank's cyst. Electronically Signed by Angel Garcia MD 05/07/2018 06:20 A
== END ==
LOC: M RAD 12:42
PROVIDERS: ATTEND Family Medicine
DX: R60.9 Edema, unspecified (principal); M71.21 Synovial cyst of popliteal space [Baker], right knee

== ENCOUNTER → 2018-05-20 | Outpatient (REF) | payer MEDICARE ==
[2018-05-20 15:47] LABS: ALBUMIN 3.7 GM/DL (3.2-5.2); CALCIUM LEVEL 9.2 MG/DL (8.8-10.2); CREATININE FOR GFR 1.55 MG/DL (0.70-1.30); GLOMERULAR FILTRATION RATE 45.6 (>35); PHOSPHORUS LEVEL 2.8 MG/DL (2.5-4.9); POTASSIUM SERUM 4.5 MEQ/L (3.5-5.1)
== END ==
LOC: M SFHCPLAZ 14:04
PROVIDERS: ATTEND Nurse Practitioner Family
DX: I50.32 Chronic diastolic (congestive) heart failure (principal)

== ENCOUNTER → 2018-09-29 | Outpatient (REF) | payer MEDICARE ==
[~2018-09-29] MED LIST changes: +ASPI-1 PO; -ASPI325T PO; +CRES20TA2 PO
[2018-09-29 13:17] LABS: BASO % 0.4 % (0.0-1.0); EOS # 0.5 10^3/uL (0.0-0.50); EOS % 4.9 % (0.0-3.0); HEMOGLOBIN 15.1 g/dl (13.5-17.5); LYMPH # 1.8 10^3/uL (1.5-4.5); LYMPH % 18.6 % (24.0-44.0); MEAN CORPUSCULAR HEMOGLOBIN 30.8 pg (27.0-33.0); MEAN CORPUSCULAR HGB CONC 31.5 g/dl (32.0-36.5); MONO # 0.9 10^3/uL (0.0-0.8); MONO % 8.8 % (0.0-5.0); NEUTROPHILS # 6.4 10^3/uL (1.8-7.7); NEUTROPHILS % 66.9 % (36.0-66.0); PLATELET COUNT, AUTOMATED 247 10^3/uL (150-450); WHITE BLOOD COUNT 9.6 10^3/uL (4.0-10.0)
[2018-09-29 14:04] LABS: ALBUMIN 3.6 GM/DL (3.2-5.2); BILIRUBIN,TOTAL 0.4 MG/DL (0.2-1.0); CALCIUM LEVEL 8.6 MG/DL (8.8-10.2); CREATININE FOR GFR 1.31 MG/DL (0.70-1.30); GLOMERULAR FILTRATION RATE 55.4 (>35); POTASSIUM SERUM 4.7 MEQ/L (3.5-5.1); PTH INTACT 136.3 PG/ML (18.5-88.0); TOTAL PROTEIN 7.1 GM/DL (6.4-8.2); URIC ACID 4.1 MG/DL (3.5-7.2)
[2018-09-29 14:26] LABS: HEMOGLOBIN A1c 7.5 %
== END ==
LOC: M SFHCPLAZ 10:51
PROVIDERS: ATTEND Family Medicine
DX: I12.9 Hypertensive chronic kidney disease with stage 1 through stage 4 chronic kidney disease, or unspecified chronic kidney disease (principal); N18.3 Chronic kidney disease, stage 3 (moderate); E11.8 Type 2 diabetes mellitus with unspecified complications; D50.9 Iron deficiency anemia, unspecified; M10.9 Gout, unspecified

== ENCOUNTER → 2019-04-01 | Outpatient (REF) | payer MEDICARE ==
[~2019-04-01] MED LIST changes: +CYAN100049; +CYAN100049 PO; +OMEP-172; +OMEP-172 PO; -OMEP20CA3; -OMEP20CA3 PO; -VITA10002; -VITA10002 PO
[2019-04-01 13:16] LABS: BASO % 0.5 % (0.0-1.0); EOS # 0.4 10^3/uL (0.0-0.5); EOS % 4.9 % (0.0-3.0); HEMATOCRIT 47.5 % (42.0-52.0); HEMOGLOBIN 14.9 g/dl (13.5-17.5); MEAN CORPUSCULAR HEMOGLOBIN 31.1 pg (27.0-33.0); MEAN CORPUSCULAR HGB CONC 31.4 g/dl (32.0-36.5); MEAN CORPUSCULAR VOLUME 99.2 fl (80.0-96.0); MONO # 0.7 10^3/uL (0.0-0.8); MONO % 8.9 % (0.0-5.0); NEUTROPHILS # 4.8 10^3/uL (1.5-8.5); NEUTROPHILS % 60.3 % (36.0-66.0); PLATELET COUNT, AUTOMATED 235 10^3/uL (150-450); RED BLOOD COUNT 4.79 10^6/uL (4.30-6.10)
[2019-04-01 13:40] LABS: HEMOGLOBIN A1c 7.3 %
[2019-04-01 13:43] LABS: ALBUMIN 3.9 GM/DL (3.2-5.2); ALT/SGPT 21 U/L (12-78); BILIRUBIN,TOTAL 0.6 MG/DL (0.2-1.0); BLOOD UREA NITROGEN 21 MG/DL (7-18); CALCIUM LEVEL 9.2 MG/DL (8.8-10.2); CARBON DIOXIDE LEVEL 32 MEQ/L (21-32); CHLORIDE LEVEL 104 MEQ/L (98-107); CREATININE FOR GFR 1.16 MG/DL (0.70-1.30); GLOMERULAR FILTRATION RATE > 60.0 (>35); GLUCOSE, FASTING 166 MG/DL (70-100); MAGNESIUM LEVEL 2.4 MG/DL (1.8-2.4); NT-PRO BNP 225 PG/ML (<450); SODIUM LEVEL 142 MEQ/L (136-145); TOTAL PROTEIN 7.2 GM/DL (6.4-8.2)
[2019-04-01 14:09] LABS: VITAMIN B12 LEVEL > 2000 PG/ML (247-911)
[2019-04-02 12:20] LABS: ALBUMIN 3.91 GM/DL (3.29-5.55); ALBUMIN % 54.3 % (55.8-66.1); ALPHA-1-GLOBULIN % 3.9 % (2.9-4.9); ALPHA-1-GLOBULINS 0.28 GM/DL (0.17-0.41); ALPHA-2-GLOBULINS 0.91 GM/DL (0.42-0.99); ALPHA-2-GLOBULINS % 12.7 % (7.1-11.8); BETA-1-GLOBULINS % 5.5 % (4.7-7.2); BETA-2-GLOBULINS 0.35 GM/DL (0.19-0.55); BETA-2-GLOBULINS % 4.8 % (3.2-6.5); GAMMA GLOBULIN % 18.8 % (11.1-18.8); GAMMA GLOBULINS 1.35 GM/DL (0.65-1.58)
== END ==
LOC: M SFHCPLAZ 09:57
PROVIDERS: ATTEND Family Medicine
DX: R60.9 Edema, unspecified (principal); E11.8 Type 2 diabetes mellitus with unspecified complications; C61 Malignant neoplasm of prostate; Z23 Encounter for immunization
CPT/HCPCS: 36415; 80053; 82607; 83036; 83735; 83880; 84153; 84165; 85025; 90682; G0008; G0463

== ENCOUNTER → 2019-09-02 | Outpatient (REF) | payer MEDICARE ==
[~2019-09-02] MED LIST changes: -IRBE150T12; +IRBE150T7; -OMEP-172; -OMEP-172 PO; +OMEP1CAP73; +OMEP1CAP73 PO
[2019-09-02 11:09] LABS: BASO % 0.3 % (0.0-1.0); EOS # 0.4 10^3/uL (0.0-0.5); HEMATOCRIT 47.2 % (42.0-52.0); LYMPH # 1.8 10^3/uL (1.5-5.0); LYMPH % 24.7 % (24.0-44.0); MEAN CORPUSCULAR HEMOGLOBIN 31.4 pg (27.0-33.0); MEAN CORPUSCULAR HGB CONC 31.8 g/dl (32.0-36.5); MEAN CORPUSCULAR VOLUME 98.7 fl (80.0-96.0); MONO # 0.6 10^3/uL (0.0-0.8); MONO % 7.9 % (0.0-5.0); NEUTROPHILS # 4.5 10^3/uL (1.5-8.5); NEUTROPHILS % 61.7 % (36.0-66.0); PLATELET COUNT, AUTOMATED 272 10^3/uL (150-450); RED BLOOD COUNT 4.78 10^6/uL (4.30-6.10); WHITE BLOOD COUNT 7.4 10^3/uL (4.0-10.0)
[2019-09-02 11:23] LABS: ALT/SGPT 18 U/L (12-78); BILIRUBIN,TOTAL 0.5 MG/DL (0.2-1.0); BLOOD UREA NITROGEN 19 MG/DL (7-18); CARBON DIOXIDE LEVEL 33 MEQ/L (21-32); CHLORIDE LEVEL 101 MEQ/L (98-107); CHOLESTEROL LEVEL 258 MG/DL (<200); CREATININE FOR GFR 1.08 MG/DL (0.70-1.30); GLOMERULAR FILTRATION RATE > 60.0 (>35); GLUCOSE, FASTING 183 MG/DL (70-100); HDL CHOLESTEROL 49 MG/DL (>40); POTASSIUM SERUM 4.3 MEQ/L (3.5-5.1); SODIUM LEVEL 140 MEQ/L (136-145); TRIGLYCERIDES LEVEL 134 MG/DL (<150)
[2019-09-02 11:24] LABS: ALBUMIN 3.1 GM/DL (3.2-5.2); CHOLESTEROL RISK RATIO 5.265 (<5); FREE T4 0.99 NG/DL (0.76-1.46); LDL CHOLESTEROL 182 MG/DL (<100); NON-HDL-C 209 MG/DL; NT-PRO BNP 279 PG/ML (<450); TOTAL PROTEIN 6.9 GM/DL (6.4-8.2); URIC ACID 5.7 MG/DL (3.5-7.2)
[2019-09-02 11:48] LABS: HEMOGLOBIN A1c 7.5 %
== END ==
LOC: M PLALAB 09:15
PROVIDERS: ATTEND Family Medicine
DX: I50.32 Chronic diastolic (congestive) heart failure (principal); D50.9 Iron deficiency anemia, unspecified; I11.0 Hypertensive heart disease with heart failure; E78.5 Hyperlipidemia, unspecified; E11.8 Type 2 diabetes mellitus with unspecified complications; M10.9 Gout, unspecified; C61 Malignant neoplasm of prostate

== ENCOUNTER → 2019-12-01 | Outpatient (CLI) | payer MEDICARE ==
[~2019-12-01] MED LIST changes: +ASPI81TA26 PO; +CYAN100050 PO; +ELIQ5TAB PO; +FERR1TAB8 PO; +GLIM2TAB4 PO; +METF-838 PO; +OMEP-221 PO; +POTA10TA17 PO; +ROSU20TA5 PO; +SITA50TAB PO; +TORS20TA2 PO; +VITA200021 PO; +ZYLO300T6 PO
== END ==
LOC: M RAD 09:00
PROVIDERS: ATTEND Family Medicine
DX: E11.8 Type 2 diabetes mellitus with unspecified complications (principal); I73.9 Peripheral vascular disease, unspecified; M79.604 Pain in right leg

== ENCOUNTER → 2019-12-07 | Outpatient (REF) | payer MEDICARE ==
[2020-01-06 14:28] LABS: HEMATOCRIT 45.8 % (42.0-52.0); HEMOGLOBIN 14.8 g/dl (13.5-17.5); MEAN CORPUSCULAR HEMOGLOBIN 31.8 pg (27.0-33.0); MEAN CORPUSCULAR HGB CONC 32.3 g/dl (32.0-36.5); MEAN CORPUSCULAR VOLUME 98.5 fl (80.0-96.0); PLATELET COUNT, AUTOMATED 233 10^3/uL (150-450); RED BLOOD COUNT 4.65 10^6/uL (4.30-6.10); WHITE BLOOD COUNT 7.7 10^3/uL (4.0-10.0)
[2020-01-19 13:06] LABS: ALBUMIN 3.4 GM/DL (3.2-5.2); ALT/SGPT 19 U/L (12-78); BILIRUBIN,TOTAL 0.4 MG/DL (0.2-1.0); BLOOD UREA NITROGEN 20 MG/DL (7-18); CALCIUM LEVEL 8.7 MG/DL (8.8-10.2); CARBON DIOXIDE LEVEL 34 MEQ/L (21-32); CHLORIDE LEVEL 102 MEQ/L (98-107); CREATININE FOR GFR 1.18 MG/DL (0.70-1.30); GLOMERULAR FILTRATION RATE > 60.0 (>35); GLUCOSE, FASTING 282 MG/DL (70-100); POTASSIUM SERUM 4.5 MEQ/L (3.5-5.1); SODIUM LEVEL 140 MEQ/L (136-145)
== END ==
LOC: M SFHCPLAZ 08:50
PROVIDERS: ATTEND Family Medicine
DX: I82.441 Acute embolism and thrombosis of right tibial vein (principal); I12.9 Hypertensive chronic kidney disease with stage 1 through stage 4 chronic kidney disease, or unspecified chronic kidney disease; N18.3 Chronic kidney disease, stage 3 (moderate); C61 Malignant neoplasm of prostate

== ENCOUNTER → 2020-02-16 | Outpatient (REF) | payer MEDICARE ==
[2020-02-16 18:59] LABS: ALBUMIN 3.4 GM/DL (3.2-5.2); ALT/SGPT 18 U/L (12-78); BILIRUBIN,TOTAL 0.4 MG/DL (0.2-1.0); BLOOD UREA NITROGEN 20 MG/DL (7-18); CALCIUM LEVEL 9.1 MG/DL (8.8-10.2); CARBON DIOXIDE LEVEL 35 MEQ/L (21-32); CHLORIDE LEVEL 101 MEQ/L (98-107); CREATININE FOR GFR 1.18 MG/DL (0.70-1.30); GLOMERULAR FILTRATION RATE > 60.0 (>35); GLUCOSE, FASTING 151 MG/DL (70-100); MAGNESIUM LEVEL 1.9 MG/DL (1.8-2.4); NT-PRO BNP 760 PG/ML (<450); POTASSIUM SERUM 4.6 MEQ/L (3.5-5.1); SODIUM LEVEL 141 MEQ/L (136-145); TOTAL PROTEIN 6.8 GM/DL (6.4-8.2)
== END ==
LOC: M SFHCPLAZ 15:27
PROVIDERS: ATTEND Nurse Practitioner Family
DX: I50.32 Chronic diastolic (congestive) heart failure (principal); R60.0 Localized edema

== ENCOUNTER 2020-03-02 16:54 | Emergency (ER) | payer MEDICARE ==
[~2020-03-02] VITALS: Ht 182.9 cm; Wt 113.0 kg
[~2020-03-02 16:54] MED LIST changes: -ASPI81TA26 PO; -CYAN100050 PO; -ELIQ5TAB PO; -FERR1TAB8 PO; -GLIM2TAB4 PO; -METF-838 PO; -OMEP-221 PO; -POTA10TA17 PO; -ROSU20TA5 PO; -SITA50TAB PO; -TORS20TA2 PO; -VITA200021 PO; -ZYLO300T6 PO
--- NOTE | 2020-03-02 17:55 | REP ---
INDICATION: DYSPNEA/COUGH. COMPARISON: 11/07/2016 FINDINGS: The technique utilized in obtaining the radiograph has magnified the cardiac silhouette and accentuated the interstitial markings. There is cardiomegaly accentuated by technique. This is unchanged. There is a hiatal hernia status quo. There is persistent elevation of the diaphragmatic surface of the right lung which is unchanged. No acute patchy parenchymal opacities or pleural effusions have developed. There is no significant change in the appearance of the osseous structures. IMPRESSION: There is no acute cardiopulmonary disease. <Electronically signed by Cristino Ortiz > 03/02/20 [id number]
[2020-03-02 17:58] LABS: VENOUS BASE EXCESS 5.5 (-2.0-2.0); VENOUS HCO3 33.1 MEQ/L (23.0-27.0); VENOUS O2 SATURATION 81.5 % (60.0-80.0); VENOUS PARTIAL PRESSURE CO2 60.3 mmHg (38.0-50.0); VENOUS PARTIAL PRESSURE O2 46.7 mmHg (30.0-50.0); VENOUS PH 7.357 UNITS (7.330-7.430); VENOUS TOTAL CO2 34.9 MEQ/L (24.0-28.0)
[2020-03-02 18:04] LABS: BASO % 0.3 % (0.0-1.0); EOS # 0.3 10^3/uL (0.0-0.5); EOS % 4.2 % (0.0-3.0); HEMATOCRIT 45.5 % (42.0-52.0); HEMOGLOBIN 14.4 g/dl (13.5-17.5); LYMPH # 1.6 10^3/uL (1.5-5.0); LYMPH % 22.5 % (24.0-44.0); MEAN CORPUSCULAR HEMOGLOBIN 31.1 pg (27.0-33.0); MEAN CORPUSCULAR HGB CONC 31.6 g/dl (32.0-36.5); MEAN CORPUSCULAR VOLUME 98.3 fl (80.0-96.0); MONO # 0.7 10^3/uL (0.0-0.8); MONO % 9.9 % (0.0-5.0); NEUTROPHILS # 4.4 10^3/uL (1.5-8.5); NEUTROPHILS % 62.7 % (36.0-66.0); PLATELET COUNT, AUTOMATED 235 10^3/uL (150-450); RED BLOOD COUNT 4.63 10^6/uL (4.30-6.10); WHITE BLOOD COUNT 6.9 10^3/uL (4.0-10.0)
[2020-03-02 18:57] LABS: ALBUMIN 3.5 GM/DL (3.2-5.2); ALT/SGPT 21 U/L (12-78); BILIRUBIN,DIRECT 0.1 MG/DL (0.0-0.2); BILIRUBIN,TOTAL 0.5 MG/DL (0.2-1.0); CK-MB VALUE MASS 1.9 NG/ML (<3.6); CPK CREATINE PHOSPHOKINASE 68 U/L (39-308); MB/CK RELATIVE INDEX 2.79 (< OR =4); NT-PRO BNP 392 PG/ML (<450); THYROXINE (T4) 8.4 UG/DL (4.5-12.0); TOTAL PROTEIN 7.3 GM/DL (6.4-8.2); TROPONIN I < 0.02 NG/ML (< 0.10)
--- NOTE | 2020-03-02 19:19 | REPVR ---
PROCEDURE INFORMATION: Exam: US Duplex Lower Extremity Veins, Bilateral Exam date and time: 03/02/2020 7:02 PM Age: 85 years old Clinical indication: Pain; Leg, lower; Bilateral; Additional info: Edema R/O dvt TECHNIQUE: Imaging protocol: Real-time duplex ultrasound of the extremities with 2-D sahni scale, color Doppler flow and spectral waveform analysis with image documentation. Complete exam focused on the bilateral lower extremity veins. COMPARISON: US Duplex, Ext,LOWER veins,unilat RIGHT 05/06/2018 1:08 PM FINDINGS: Right deep veins: There is echogenic thrombus along the margins of the right femoral vein and distal femoral vein probably the result of chronic thrombus. This is nonocclusive and there is venous return through the central portion. Left deep veins: Unremarkable. The common femoral, femoral, proximal profunda femoral and popliteal veins are patent without thrombus. Normal Doppler waveforms. Normal compressibility and/or augmentation response. Soft tissues: Moderate popliteal cyst on the left measuring 4 cm x 3 cm. Debris layering posteriorly may be the result of previous bleed or proteinaceous material. 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 No evidence of DVT on the left. Moderate left popliteal cysts with echogenic debris. Electronically signed by: Eddi Tolbert On 03/02/2020 19:19:21 PM
[2020-03-02 19:42] LABS: BLOOD UREA NITROGEN 20 MG/DL (7-18); CALCIUM LEVEL 8.8 MG/DL (8.8-10.2); CARBON DIOXIDE LEVEL 32 MEQ/L (21-32); CHLORIDE LEVEL 102 MEQ/L (98-107); CREATININE FOR GFR 1.09 MG/DL (0.70-1.30); GLOMERULAR FILTRATION RATE > 60.0 (>35); GLUCOSE, FASTING 190 MG/DL (70-100); SODIUM LEVEL 139 MEQ/L (136-145)
[2020-03-02] MEDS ORDERED: FERR1TAB8 PO (20:13)
[2020-03-02] MEDS ORDERED: TORS20TA2 PO (20:13)
[2020-03-02] MEDS ORDERED: SITA50TAB PO (20:13)
[2020-03-02] MEDS ORDERED: ROSU20TA5 PO (20:13)
[2020-03-02] MEDS ORDERED: ELIQ5TAB PO (20:13)
[2020-03-02] MEDS ORDERED: ASPI81TA26 PO (20:13)
[2020-03-02] MEDS ORDERED: GLIM2TAB4 PO (20:13)
[2020-03-02] MEDS ORDERED: CYAN100050 PO (20:13)
[2020-03-02] MEDS ORDERED: OMEP-221 PO (20:13)
[2020-03-02] MEDS ORDERED: METF-838 PO (20:13)
[2020-03-02] MEDS ORDERED: ZYLO300T6 PO (20:13)
[2020-03-02] MEDS ORDERED: VITA200021 PO (20:13)
[2020-03-02] MEDS ORDERED: POTA10TA17 PO (20:13)
[2020-03-02 20:30] VITALS: BP 127/63
--- NOTE | 2020-03-02 21:04 | ECGEPIP ---
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
--- NOTE | 2020-03-07 12:10 | ED PDOC ---
Post-Departure Follow-Up dr celaya faxed formal report of us lower extremity for fu Clarita Riddle MD Mar 07, 2020 12:10
== END 2020-03-02 20:55 | disposition home or self-care (01) ==
LOC: M ED 16:54
DX: I82.511 Chronic embolism and thrombosis of right femoral vein (principal); I44.0 Atrioventricular block, first degree; I49.3 Ventricular premature depolarization; I11.0 Hypertensive heart disease with heart failure; I50.9 Heart failure, unspecified; E78.5 Hyperlipidemia, unspecified; K21.9 Gastro-esophageal reflux disease without esophagitis; M19.90 Unspecified osteoarthritis, unspecified site; N40.0 Benign prostatic hyperplasia without lower urinary tract symptoms; G47.33 Obstructive sleep apnea (adult) (pediatric); E66.9 Obesity, unspecified; Z68.33 Body mass index [BMI] 33.0-33.9, adult; M10.9 Gout, unspecified; G40.209 Localization-related (focal) (partial) symptomatic epilepsy and epileptic syndromes with complex partial seizures, not intractable, without status epilepticus; Z85.46 Personal history of malignant neoplasm of prostate; Z87.891 Personal history of nicotine dependence; Z79.899 Other long term (current) drug therapy; Z79.01 Long term (current) use of anticoagulants; Z79.82 Long term (current) use of aspirin; Z79.84 Long term (current) use of oral hypoglycemic drugs

== ENCOUNTER → 2020-03-09 | Outpatient (CLI) | payer MEDICARE ==
[~2020-03-09] MED LIST changes: +ASPI81TA26 PO; +CYAN100050 PO; +ELIQ5TAB PO; +FERR1TAB8 PO; +GLIM2TAB4 PO; +METF-838 PO; +OMEP-221 PO; +POTA10TA17 PO; +ROSU20TA5 PO; +SITA50TAB PO; +TORS20TA2 PO; +VITA200021 PO; +ZYLO300T6 PO
--- NOTE | 2020-03-10 12:25 | ECHO ---
DATE OF PROCEDURE: 03/09/2020 Age: 85 Gender: Male Height: 182 cm Weight: 117 kg REFERRING PHYSICIAN: YINKA Auguste INDICATION: Shortness of breath. MEASUREMENTS: 2D Measurements: Left ventricle diastole 6.1 cm Interventricular septum 1.07 cm Posterior wall 1.01 cm Aortic annulus 2.0 cm Left atrium 3.4 cm Left atrial volume index 23 Aortic root 3.7 cm Inferior vena cava 1.3 cm Doppler Measurements: Very mild aortic regurgitation No aortic stenosis Aortic valve velocity 154 cm/s LVOT velocity 102 cm/s LVOT VTI 22.9 cm Trace mitral regurgitation No mitral stenosis Mitral E velocity 83.7 cm/s Mitral A velocity 131 cm/s Mitral deceleration time 243 m/s No tricuspid regurgitation Trace pulmonic regurgitation Pulmonary artery acceleration time 135 m/s MITRAL ANNULAR TISSUE DOPPLER E prime septal 13.7 cm/s, E prime lateral 11.0 cm/s DESCRIPTION: Rhythm was sinus with frequent premature ventricular contractions (PVCs) and presence of first-degree atrioventricular (AV) block. This was a moderately technically difficult echocardiogram. This was a 2D, M-mode, color flow Doppler, and pulsed wave Doppler examination including mitral annular tissue Doppler. CONCLUSIONS: 1. 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 Very mild aortic regurgitation. No aortic stenosis. 2. Moderate mitral annular calcification. Trace mitral regurgitation. No mitral stenosis. 3. Mildly dilated left ventricle with normal left ventricular (LV) wall thickness. Normal regional left ventricular (LV) wall motion and wall thickening. Normal left ventricular (LV) systolic function. Left ventricular ejection fraction (LVEF) 60% by visual estimate. 4. Suggestive of normal pulmonary artery systolic pressure. 5. Normal left ventricular (LV) diastolic function for age and heart rate. 6. Very small pericardial effusion. [facility]
== END ==
LOC: M CARPUL 10:28
PROVIDERS: ATTEND Nurse Practitioner Family
DX: I50.32 Chronic diastolic (congestive) heart failure (principal); Z79.01 Long term (current) use of anticoagulants

== ENCOUNTER → 2020-03-15 | Outpatient (CLI) | payer MEDICARE ==
--- NOTE | 2020-03-16 04:47 | REP ---
INDICATION: BLE EDEMA COMPARISON: None. TECHNIQUE: Real time barros scale and color Doppler evaluation of the bilateral lower extremity arterial vasculature using linear high frequency transducer. FINDINGS: Barros scale and color images demonstrate mild to moderate amounts of atheromatous plaquing with areas of minimal narrowing but no focal stenosis identified. Doppler interrogation demonstrates normal triphasic and biphasic arterial wave forms and velocities bilaterally. Peak systolic velocities (cm/sec) Common femoral artery: Right 73.3; Left 62.7 Profunda femoris: Right 32.6; Left 29.4 SFA (proximal): Right 70.9; Left 61.5 SFA (mid): Right 78.7; Left 58.5-99.8 SFA (distal): Right 60.3; Left 52.3 Popliteal artery: Right 57.5; Left 69.8 ROZ (prox.): Right 38.1; Left 57.0 Tibioperoneal trunk: Right 47.2; Left 53.9 CERAMICS TEACHER (prox.): Right 46.0; Left 60.7 CERAMICS TEACHER (distal): Right 40.3; Left 26.8 ROZ (distal): Right 28.7; Left 31.9 IMPRESSION: Atheromatous changes without obvious focal occlusion or stenosis. Mild narrowing in the left mid superficial femoral artery cannot be excluded although is not visibly identified. <Electronically signed by Angel Garcia > 03/16/20 [id number]
== END ==
LOC: M RAD 11:28
PROVIDERS: ATTEND Nurse Practitioner Family
DX: R60.0 Localized edema (principal); I70.201 Unspecified atherosclerosis of native arteries of extremities, right leg

== ENCOUNTER → 2020-04-27 | Outpatient (CLI) | payer MEDICARE ==
[~2020-04-27] MED LIST changes: +COLC0.6T47 PO; -COLC1TAB13 PO
--- NOTE | 2020-04-27 15:24 | REPVR ---
PROCEDURE INFORMATION: Exam: MR Lumbar Spine Without Contrast. Exam date and time: 04/27/2020 1:49 PM Age: 85 years old Clinical indication: Low back pain; Patient HX: Lbp; Additional info: Degenerative joint disease TECHNIQUE: Imaging protocol: Multiplanar magnetic resonance images of the lumbar spine without intravenous contrast. COMPARISON: CT scan of the abdomen and pelvis 06/07/2016. FINDINGS: Vertebrae: No acute fracture in the lumbar spine. Schmorl's nodes are seen in vertebral body endplates. Diffuse degenerative facet arthropathy. Dextroscoliosis with apex at the L3 level. Disc space narrowing is most prominent at the L2-L3 and L3-L4 levels. Spinal cord: The conus medullaris is normal appearance of the T12-L1 level. L1-L2: Mild spinal canal stenosis due to diffusely bulging annulus without evidence of neural compromise. L2-L3: Moderate to severe spinal canal stenosis with narrowing of the lateral recesses and likely compression of the exiting L3 nerve roots. There is compression of the thecal sac. The right neural foramen is narrowed by an asymmetrically bulging annulus extending into the far lateral position due to the scoliosis; this may affect the right L2 nerve root. L3-L4: Severe spinal canal stenosis with compression of the exiting L4 nerve roots and narrowing of the left neural foramen which could affect the left L3 nerve root L4-L5: Severe spinal canal stenosis due to combination of diffusely bulging annulus and ligamentum flavum hypertrophy with marked compression of the thecal sac and both exiting L5 nerve roots. Both neural foramen are narrowed due to subluxation of the degenerated facet joints. There may be compression of the left L4 nerve root. There appears to be artifact within the disc space likely due to air associated with vacuum disc. L5-S1: Moderate spinal canal stenosis without evidence neural compromise. Marked degenerative facet arthropathy. Soft tissues: Unremarkable. IMPRESSION: 1. There is severe spinal canal stenosis compression of the thecal sac at the L3-L4 and L4-L5 levels as well as the exiting L5 and L4 nerve roots respectively. There is moderate to severe spinal canal stenosis at L2-L3 with other levels of neural compromise as described above. Electronically signed by: Alannah Solomon On 04/27/2020 15:24:19 PM
== END ==
LOC: M RAD 12:32
PROVIDERS: ATTEND Family Medicine
DX: M47.816 Spondylosis without myelopathy or radiculopathy, lumbar region (principal)

== ENCOUNTER → 2020-06-17 | Outpatient (REF) | payer MEDICARE ==
[2020-06-17 14:17] LABS: HEMOGLOBIN A1c 6.9 %
[2020-06-17 14:55] LABS: ALBUMIN 3.3 GM/DL (3.2-5.2); ALT/SGPT 21 U/L (12-78); BILIRUBIN,TOTAL 0.4 MG/DL (0.2-1.0); BLOOD UREA NITROGEN 22 MG/DL (7-18); CALCIUM LEVEL 9.5 MG/DL (8.8-10.2); CARBON DIOXIDE LEVEL 35 MEQ/L (21-32); CHLORIDE LEVEL 102 MEQ/L (98-107); CREATININE FOR GFR 0.97 MG/DL (0.70-1.30); GLOMERULAR FILTRATION RATE > 60.0 (>35); GLUCOSE, FASTING 119 MG/DL (70-100); MAGNESIUM LEVEL 1.9 MG/DL (1.8-2.4); NT-PRO BNP 361 PG/ML (<450); POTASSIUM SERUM 4.2 MEQ/L (3.5-5.1); SODIUM LEVEL 142 MEQ/L (136-145); TOTAL PROTEIN 6.6 GM/DL (6.4-8.2); URIC ACID 4.3 MG/DL (3.5-7.2); VITAMIN B12 LEVEL 1583 PG/ML (247-911)
== END ==
LOC: M SFHCPLAZ 10:07
PROVIDERS: ATTEND Physician Assistant
DX: I10 Essential (primary) hypertension (principal); E11.8 Type 2 diabetes mellitus with unspecified complications; M10.9 Gout, unspecified; E53.8 Deficiency of other specified B group vitamins; C61 Malignant neoplasm of prostate

== ENCOUNTER 2020-06-22 04:06 | Inpatient (IN) | payer MEDICARE ==
[~2020-06-22] VITALS: Ht 182.9 cm; Wt 112.7 kg
--- OUTSIDE RECORDS SUMMARY | 2020-06-22 04:11 | CCD ---
Author Author [facility] Organization [facility] Address Unknown Phone Unavailable Care Team Providers Care Excellence Specialist Name Role Phone Landen Dyson Unavailable PROBLEMS Type Condition ICD9-CM Code [id number] Code Onset Dates Condition S tatus SNOMED Code Notes Problem Vitamin B12 deficiency E53.8 Active 657897321 Problem CKD (chronic kidney disease) stage 3, GFR 30-59 ml/min N18.3 Active 400213030 Problem GERD (gastroesophageal reflux disease) K21.9 A ctive 712806233 Problem Hyperlipidemia E78.5 Active 37271310 Problem Overweight E66.3 Active 502375704 Problem Vitamin D deficiency E55.9 Active 13053842 Problem 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 Active 26356670 9 Problem Primary osteoarthritis of both knees M17.0 Act jasen 793047328 Problem 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.8 Active 972712174 Problem Mild dementia F03.90 Active 117788172048689 Problem Ataxia R27.0 Active 13940569 Problem Non-seasonal allergic rhinitis, unspecified trigger J30.89 Active 75658351 Problem Gout M10.9 Active 32140189 Problem Essential (primary) hypertension I10 Active 56339272 Problem 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.511 Active 190573790834000 Problem Prostate cancer C61 Active 175026969 Problem Chronic diastolic (congestive) heart failure I50.3 2 Active 019260086 Problem DJD (degenerative joint disease), 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 Active 817601758 Problem Seizure disorder G40.909 Active 743390795 Problem 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 Active 706224608 Problem Iron deficiency anemia, unspecified iron deficiency an emia type D50.9 Active 44039795 Problem PVD (peripheral vascular disease) I73.9 Active 402735325 ALLERGIES Allergen (clinical drug ingredient) Drug/Non Drug Allergy do cumented on EMR Reaction Allergy Type Onset Date Status evironmental watery eyes,sneezing Non Drug Allergy Active ENCOUNTERS from 1933 to 2020-05-13 Encounter Location Date Provider Diagnosis [address] [address] Apr, 021 Landen Dyson 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.8 IMMUNIZATIONS Vaccine Route Administration Date Status Influenza (18 yrs & older) Flublok IM Intramuscular Apr 01, 2019 Administered Influenza (18 yrs & older) Flublok IM Intramuscular May 02, 2018 Administered Influenza (High Dose 65 & up) IM Intramuscular Feb 12, 2017 A dministered Influenza (High Dose 65 & up) IM Intramuscular Feb 03, 2016 A dministered Influenza (High Dose 65 & up) IM Intramuscular Feb 24, 2015 A dministered Influenza (6mo & up) Fluzone IM Intramuscular Feb 11, 2014 Ad ministered Influenza (6mo & up) Fluzone IM Intramuscular Apr 13, 2013 Ad ministered Influenza (6mo & up) Fluzone IM Intramuscular Mar 04, 2012 Ad ministered Influenza (6mo & up) Fluzone IM Intramuscular May 05, 2010 Ad ministered SOCIAL HISTORY Tobacco Use: Social History Observation Description Date Details (start date - stop date) Former Smoker Sex Assigned At : Social History Observation Description Sex Assigned At Unknown Education: Question Answer Notes Level of Education: Finished High School Language: Question Answer Notes Languages spoken: Greenlandic Sikhism: Question Answer Notes Sikhism No zoroastrianism beliefs that would impact health care. Sexual Hx: Question Answer Notes Had sex in the last 12 months (vaginal, oral, or anal)? No Have you ever had an STD? No Alcohol Screening: Question Answer Notes Did you have a drink containing alcohol in the past year? No Points 0 Interpretation Negative BMI Care Goal Follow-Up Question Answer Notes Above Normal BMI Follow-Up Giving encouragement to exercise Tobacco Use: Question Answer Notes Are you a: former smoker How long has it been since you last smoked? > 10 years REASON FOR REFERRAL No Information VITAL SIGNS No information MEDICATIONS Medication SIG (Take, Route, Frequency, Duration) Notes Start Da te End Date Status Ferrous Sulfate 325 (65 Fe) MG 1 tablet Orally every other day Active Blood Glucose Test - marty countour ez subcutaneously A C BID for 9 0 day(s) Active Knee Compression Sleeve/L/XL 1 as directed R60.9 Daily for 99 mo nt Apr, Active Potassium Chloride 10 MEQ 1 tablet Orally Twice a day for 90 day(s) Active Fluticasone Propionate 50 MCG/ACT 2 sprays in each nos tril Nasally every morning for 90 day(s) Active Glucometer _ One Touch Verio DX: E11.9 Daily use for 365 days Feb, Active MetFORMIN HCl ER 500 MG 1 tab Orally AC BID for 90 day(s) Active Apixaban 5 MG 1 tab Orally bid Activ e Allopurinol 300 MG 1 tablet Orally Once a day for 90 day(s) Active Rosuvastatin Calcium 20 MG 1 tablet Orally Daily for 90 day(s) Active Pen Jordan as directed subcutaneously once daily for 30 Days Apr, Active Allopurinol 300 MG 1 tablet Orally Once a day for 90 Active Cholecalciferol 5000 UNIT 1 capsule Orally Once a day for 90 day(s) Active Lancets - marty contour ez subcutaneously AC BID DX: E11.8 for 90 d ay(s) Active Omeprazole 40 MG 1 capsule Orally Once a day for 90 day(s) Active Glimepiride 4 MG 1 tab Orally AC BID for 90 day(s) Active Voltaren 1 % clarification 5 gm to r knee , r index finger Transdermal four times daily as needed Active Walker - 4 wheeled walker w/ seat Daily DX: R27.0 for 30 Days Oct, Active Torsemide 20 MG 1 tab Orally every morning for 90 Active Cyanocobalamin 500 MCG 1 tablet Orally Once a day for 90 day(s) Active Omeprazole 40 MG 1 capsule Orally Once a day for 90 Active Ferrous Sulfate 325 (65 Fe) MG 1 tablet Orally Once a day for 30 day( s) Active Tresiba FlexTouch 200 UNIT/ML as directed Subcutaneous Once daily at for 30 Days Apr, Active Potassium Chloride 10 MEQ 1 tablet Orally Twice a day for 90 Active Aspirin 81 MG 1 tablet Orally Once a day for 30 day(s) Active PROCEDURES No Information RESULTS No Results REASON FOR VISIT No Information MEDICAL (GENERAL) HISTORY Type Description Date Medical History prostate cancer status post EBT-Deblasio and TURP 2000 Medical History hypertension Medical History GERD/dyspepsia/esophegeal di verticulum 7 x 3 x 1.6 cm-patient deferred surgical closure, moderate hiatal hernia, 11 cm, by 02/2014 CT A Medical History hyperlipidemia 2B Medical History history of right nephrolithi asis x2 with secondary hydronephrosis by September 2007 CT abdomen/pelvis-patient deferred repeat CT Medical History BPH with LUTS Medical History obstructive sleep apnea-refuses CPAP Medical History bilateral knee osteoarthritis Medical History lumbar DJD/multilevel spinal stenosis by August 2008 MRI//thoracic DJD-ML bulges/HNP s compression by 06/2016 MRI s/c Medical History erectile dysfunction Medical History obstructive sleep apnea-patient refuses treatment Medical History partial complex seizure diso rder-recurrence p 10/2016 CVA-L temporal/parietal slowing, but no epileptiform activity Medical History obesity Medical History CHF, diastolic-03/10/20 TTE- LVEF 60%, severe AV sclerosis but very mild AR/no , LVEF 60%, normal PASPmildly dilated LV-Antecol Medical History recurrent gout, L foot Medical History L parietal punctate CVA, old L BG CVA by 10/2016 MRI-10/2016 patent intracranial vessels, 16-49% B ICA stenosis Medical History occlusive DVT mid-distal R f emoral vein by 12/01/19 US-started on apixaban//03/02/20 B DVT US chronic RLE, -L Surgical History colonoscopy-normal 1997 Surgical History Prostate scraping w/radiation 1995 Hospitalization History CHF, acute on chronic-negati ve telemtry x SB to 40s therefore Coreg decreased, - serial enzymes, TTE as per MH, CXR c new bilateral small pleural effusions 06/29-09/2013 Hospitalization History L foot gouty vs cellulitis f lare-09/06/2016 MRI c diffuse STS-improved ceftaroline and colchicine, admission WBC 8.2, ESR 49, CRP 13 , BCX - x2 09/07- Hospitalization History L pontine CVA-asa changed to clopid 11/07- Goals Section No Information Health Concerns No Information MEDICAL EQUIPMENT No Information MENTAL STATUS No Information FUNCTIONAL STATUS No Information ASSESSMENTS Encounter Date Diagnosis Assessment Notes Treatment Notes Treatm ent Clinical Notes Apr, Diabetes mellitus type 2 with complications (ICD -10 - E11.8) PLAN OF TREATMENT Medication Medication Name Sig Start Date Stop Date Pen Jordan as directed subcutaneously once daily for 30 Day s Apr, Tresiba FlexTouch 200 UNIT/ML as directed Subcutaneous Once daily at for 30 Days Apr, Cyanocobalamin 500 MCG 1 tablet Orally Once a day for 90 day(s) Lancets - marty contour ez subcutaneously AC BID DX: E11. 8 for 90 day(s) Apixaban 5 MG 1 tab Orally bid Fluticasone Propionate 50 MCG/ACT 2 sprays in each nos tril Nasally every morning for 90 day(s) MetFORMIN HCl ER 500 MG 1 tab Orally AC BID for 90 day(s) Allopurinol 300 MG 1 tablet Orally Once a day for 90 day(s) Rosuvastatin Calcium 20 MG 1 tablet Orally Daily for 90 day(s) Torsemide 20 MG 1 tab Orally every morning for 90 Omeprazole 40 MG 1 capsule Orally Once a day for 90 day(s) Glimepiride 4 MG 1 tab Orally AC BID for 90 day(s) Voltaren 1 % clarification 5 gm to r knee , r index finger Transdermal four times daily as needed Cholecalciferol 5000 UNIT 1 capsule Orally Once a day for 90 day (s) Blood Glucose Test - marty countour ez subcutaneously A C BID fo r 90 day(s) Potassium Chloride 10 MEQ 1 tablet Orally Twice a day for 90 day (s) Next Appt Details Provider Name:Kiana Womack, 06-02 11:15:00 AM, [address] [place] [address], [phone], Provider Name:Landen Dyson, 2020-07-11 0 3:15:00 PM, [address] [place] [address], [phone], Insurance Providers Payer Name Payer Address Payer Phone Insured Name Patient Relati onship to Insured Coverage Start Date Coverage End Date [facility] [employer] [facility] [address] [address] [facility] [phone] [phone] INA SORIANO
--- OUTSIDE RECORDS SUMMARY | 2020-06-22 04:11 | CCD ---
Author Author [facility] Organization [facility] Address Unknown Phone Unavailable Care Team Providers Care Process Automation Engineer Name Role Phone Landne Dyson Unavailable PROBLEMS Type Condition ICD9-CM Code [id number] Code Onset Dates Condition S tatus SNOMED Code Notes Problem Vitamin B12 deficiency E53.8 Active 777865588 Problem CKD (chronic kidney disease) stage 3, GFR 30-59 ml/min N18.3 Active 213743666 Problem GERD (gastroesophageal reflux disease) K21.9 A ctive 228314100 Problem Hyperlipidemia E78.5 Active 50403591 Problem Overweight E66.3 Active 307400422 Problem Vitamin D deficiency E55.9 Active 78149192 Problem 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 Active 27245755 9 Problem Primary osteoarthritis of both knees M17.0 Act jasen 609360806 Problem 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.8 Active 741656311 Problem Mild dementia F03.90 Active 425770804140021 Problem Ataxia R27.0 Active 40718980 Problem Non-seasonal allergic rhinitis, unspecified trigger J30.89 Active 42458875 Problem Gout M10.9 Active 46693002 Problem Essential (primary) hypertension I10 Active 02592955 Problem 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.511 Active 865591003868950 Problem Prostate cancer C61 Active 410267107 Problem Chronic diastolic (congestive) heart failure I50.3 2 Active 702875469 Problem DJD (degenerative joint disease), 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 Active 271439274 Problem Seizure disorder G40.909 Active 176762480 Problem 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 Active 243689571 Problem Iron deficiency anemia, unspecified iron deficiency an emia type D50.9 Active 35198827 Problem PVD (peripheral vascular disease) I73.9 Active 118913989 ALLERGIES Allergen (clinical drug ingredient) Drug/Non Drug Allergy do cumented on EMR Reaction Allergy Type Onset Date Status evironmental watery eyes,sneezing Non Drug Allergy Active ENCOUNTERS from 1933 to 2020-05-03 Encounter Location Date Provider Diagnosis [address] [address] Mar, 020 Landen Dyson IMMUNIZATIONS Vaccine Route Administration Date Status Influenza [...] School Language: Question Answer Notes Languages spoken: Kyrgyz Gnosticism: Question Answer Notes Gnosticism No bahai beliefs that would impact health care. Sexual [...] Notes Start Da te End Date Status Potassium Chloride 10 MEQ 1 tablet Orally Twice a day for 90 day(s) Active Allopurinol 300 MG 1 tablet Orally Once a day for 90 day(s) Active Voltaren 1 % clarification 5 gm to r knee , r index finger Transdermal four times daily as needed Active Rosuvastatin Calcium 20 MG 1 tablet Orally Daily for 90 day(s) Active Blood Glucose Test - marty countour ez subcutaneously A C BID for 9 0 day(s) Active Ferrous Sulfate 325 (65 Fe) MG 1 tablet Orally Once a day for 30 day( s) Active Omeprazole 40 MG 1 capsule Orally Once a day for 90 Active Knee Compression Sleeve/L/XL 1 as directed R60.9 Daily for 99 mo [facility] Apr, Active MetFORMIN HCl ER 500 MG 1 tab Orally AC BID for 90 day(s) Active Aspirin 81 MG 1 tablet Orally Once a day for 30 day(s) Active Torsemide 20 MG 1 tab Orally every morning for 90 Active Allopurinol 300 MG 1 tablet Orally Once a day for 90 Active Apixaban 5 MG 1 tab Orally bid Activ e Fluticasone Propionate 50 MCG/ACT 2 sprays in each nos tril Nasally every morning for 90 day(s) Active Ferrous Sulfate 325 (65 Fe) MG 1 tablet Orally every other day Active Cholecalciferol 5000 UNIT 1 capsule Orally Once a day for 90 day(s) Active Lancets - marty contour ez subcutaneously AC BID DX: E11.8 for 90 d ay(s) Active Glucometer _ One Touch Verio DX: E11.9 Daily use for 365 days Feb, Active Glimepiride 4 MG 1 tab Orally AC BID for 90 day(s) Active Walker - 4 wheeled walker w/ seat Daily DX: R27.0 for 30 Days Oct, Active Cyanocobalamin 500 MCG 1 tablet Orally Once a day for 90 day(s) Active Omeprazole 40 MG 1 capsule Orally Once a day for 90 day(s) Active Potassium Chloride 10 MEQ 1 tablet Orally Twice a day for 90 Active Sitagliptin Phosphate 50 MG 1 tablet Orally every morning for 90 day( s) Active PROCEDURES No Information RESULTS No Results [...] No Information FUNCTIONAL STATUS No Information ASSESSMENTS No Information PLAN OF TREATMENT Medication Medication Name Sig Start Date Stop Date Torsemide 20 MG 1 tab Orally every morning for 90 Omeprazole 40 MG 1 capsule Orally Once a day for 90 day(s) Apixaban 5 MG 1 tab Orally bid Fluticasone Propionate 50 MCG/ACT 2 sprays in each nos tril Nasally every morning for 90 day(s) Blood Glucose Test - marty countour ez subcutaneously A C BID fo r 90 day(s) Potassium Chloride 10 MEQ 1 tablet Orally Twice a day for 90 day (s) Cholecalciferol 5000 UNIT 1 capsule Orally Once a day for 90 day (s) Glimepiride 4 MG 1 tab Orally AC BID for 90 day(s) Voltaren 1 % clarification 5 gm to r knee , r index finger Transdermal four times daily as needed Sitagliptin Phosphate 50 MG 1 tablet Orally every morning for 90 day(s) MetFORMIN HCl ER 500 MG 1 tab Orally AC BID for 90 day(s) Cyanocobalamin 500 MCG 1 tablet Orally Once a day for 90 day(s) Lancets - marty contour ez subcutaneously AC BID DX: E11. 8 for 90 day(s) Allopurinol 300 MG 1 tablet Orally Once a day for 90 day(s) Rosuvastatin Calcium 20 MG 1 tablet Orally Daily for 90 day(s) Next Appt Details Provider Name:Landen Dyson, 2020-07-11 0 3:15:00 PM, [address] [place] [address], [phone], Insurance Providers Payer Name Payer Address Payer Phone Insured Name Patient Relati onship to Insured Coverage Start Date Coverage End Date [facility] [employer] [facility] [address] [address] [facility] [id number] INA SORIANO
--- OUTSIDE RECORDS SUMMARY | 2020-06-22 04:11 | CCD ---
Author Author [facility] Organization [facility] Address Unknown Phone Unavailable Care Team Providers Care Technology Trainer Name Role Phone Kiana Womack Unavailable PROBLEMS Type Condition ICD9-CM Code [id number] Code Onset Dates Condition S tatus W/U Status Risk SNOMED Code Notes Problem Vitamin B12 deficiency E53.8 Active confirmed 072410320 Problem CKD (chronic kidney disease) stage 3, GFR 30-59 ml/min N18.3 Active confirmed 294923790 Problem GERD (gastroesophageal reflux disease) K21.9 A ctive confirmed 871209914 Problem Hyperlipidemia E78.5 Active confirmed 68042 004 Problem Overweight E66.3 Active confirmed 578116994 Problem Vitamin D deficiency E55.9 Active confirmed 31225136 Problem 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 Active confirmed 112283740 Problem Primary osteoarthritis of both knees M17.0 Act jasen confirmed 833641046 Problem 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.8 Active confirmed 077614545 Problem Mild dementia F03.90 Active confirmed 686655 406662905 Problem Ataxia R27.0 Active confirmed 21932013 Problem Non-seasonal allergic rhinitis, unspecified trigger J30.89 Active confirmed 90958733 Problem Gout M10.9 Active confirmed 53352963 Problem Essential (primary) hypertension I10 Active conf irmed 88213246 Problem 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.511 Active confirmed 913204113491726 Problem Prostate cancer C61 Active confirmed 3990 53805 Problem Chronic diastolic (congestive) heart failure I50.3 2 Active confirmed 419028312 Problem DJD (degenerative joint disease), 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 Active confirmed 726692797 Problem Seizure disorder G40.909 Active confirmed 12 0670778 Problem 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 Active confirmed 230 040743 Problem Iron deficiency anemia, unspecified iron deficiency an emia type D50.9 Active confirmed 22917872 Problem PVD (peripheral vascular disease) I73.9 Active confirmed 304153537 ALLERGIES Allergen (clinical drug ingredient) Drug/Non Drug Allergy do cumented on EMR Reaction Allergy Type Onset Date Status evironmental watery eyes,sneezing Non Drug Allergy Active ENCOUNTERS from 1935 to 2020-06-09 Encounter Location Date Provider Diagnosis [address] [place] [address] May, Kiana Shanta Diabetes mellitus type 2 with complicati ons E11.8 IMMUNIZATIONS Vaccine Route Administration Date Status [...] School Language: Question Answer Notes Languages spoken: Lao Moravian: Question Answer Notes Moravian No episcopalian beliefs that would impact health care. Sexual [...] REASON FOR REFERRAL No Information VITAL SIGNS Weight 254 lbs May, Height 73 in May, BMI 33.51 kg/m2 May, Heart Rate 119 /min May, Respiratory Rate 20 /min May, Temperature 97.1 degrees Fahrenheit May, Oximetry 89 May, Blood pressure systolic 120 mm Hg May, Blood pressure diastolic 80 mm Hg May, MEDICATIONS Medication SIG (Take, Route, Frequency, Duration) Notes Start Da te End Date Status Allopurinol 300 MG 1 tablet Orally Once a day for 90 day(s) Active Tresiba FlexTouch 200 UNIT/ML 10 units Subcutaneous Once daily a t HS Apr, Active Lancets - marty contour ez subcutaneously AC BID DX: E11.8 for 90 d ay(s) Active Walker - 4 wheeled walker w/ seat Daily DX: R27.0 for 30 Days Oct, Active Aspirin 81 MG 1 tablet Orally Once a day for 30 day(s) Active Fluticasone Propionate 50 MCG/ACT 2 sprays in each nos tril Nasally every morning for 90 day(s) Active MetFORMIN HCl ER 500 MG 1 tab Orally AC BID for 90 day(s) Active Apixaban 5 MG 1 tab Orally bid Activ e Torsemide 20 MG 1 tab Orally every morning for 90 Active Pen [place] as directed subcutaneously once daily for 30 Days Apr, Active Omeprazole 40 MG 1 capsule Orally Once a day for 90 day(s) Active Vitamin D-3 5000 UNIT/ML 1 ml under the tongue Sublin gual Once a day for 30 day(s) Active Voltaren 1 % clarification 5 gm to r knee , r index finger Transdermal four times daily as needed for 30 days Active Knee Compression Sleeve/L/XL 1 as directed R60.9 Daily for 99 mo [facility] Apr, Active Sitagliptin Phosphate 50 MG 1 tablet Orally every morning for 90 day( s) Active Cyanocobalamin 500 MCG 1 tablet Orally Once a day for 90 day(s) Active Glucometer _ One Touch Verio DX: E11.9 Daily use for 365 days Feb, Active Glimepiride 4 MG 1 tab Orally AC BID for 90 day(s) Active Blood Glucose Test - marty countour ez subcutaneously A C BID for 9 0 day(s) Active Ferrous Sulfate 325 (65 Fe) MG 1 tablet Orally every other day Active Potassium Chloride 10 MEQ 1 tablet Orally Twice a day for 90 Active Rosuvastatin Calcium 20 MG 1 tablet Orally Daily for 90 day(s) Active PROCEDURES No Information RESULTS No Results REASON FOR VISIT BG check, tresiba, [facility] called needed office notes so they could review med s/ check weight/ faxed to them at [phone] ( [place]) MEDICAL (GENERAL) HISTORY Type Description Date Medical [...] f emoral vein by 12/01/19 US-started on apixaban/03/02/20 B DVT US chronic RLE, -L Surgical [...] Notes Treatment Notes Treatm ent Clinical Notes May, Diabetes mellitus type 2 with complications (ICD -10 - E11.8) He is well controlled on Tresiba 10u qhs Contingency: increase basal insulin dose Continue ADA diet/weight loss ACEI as per hypertension 03/14/20 met 500 QD to 500 BID given AC BG 200-220 c BG cb in 14D 02/03/20 recommended basal insulin, but px preferred to try met 500 AC dinner 09/24/19 +lester 50 to glim 4 BID 09/01/19 7.5 and gave new Verio 03/2018 7.7; therefore, increased 1 BID to 2 BID 11/2017 6.8 03/2017 8.7; therefore, gave Verio Flex and + glim 1 AC BID 04/2016 7.2 07/2015 6.4 09/2014 6.3 03/2014 6.0 06/2013 5.8 07/2012 6.2 12/2011 6.7 therefore ADA diet started 04/2011 6.October A1c up to 6.4 04/2016 LES/creatinin 38 PLAN OF TREATMENT Medication Medication Name Sig Start Date Stop Date Tresiba FlexTouch 200 UNIT/ML 10 units Subcutaneous Once wendy ly at HS 15 Apr, 2020 Voltaren 1 % clarification 5 gm to r knee , r index finger Transdermal four times daily as needed for 30 days MetFORMIN HCl ER 500 MG 1 tab Orally AC BID for 90 day(s) Lancets - marty contour ez subcutaneously AC BID DX: E11. 8 for 90 day(s) Sitagliptin Phosphate 50 MG 1 tablet Orally every morning for 90 day(s) Glimepiride 4 MG 1 tab Orally AC BID for 90 day(s) Blood Glucose Test - marty countour ez subcutaneously A C BID fo r 90 day(s) Treatment Notes Assessment Notes Clinical Notes Diabetes mellitus type 2 with complications He is well controlled on Tresiba 10u qhsContingency: increase basal insulin doseContinue ADA diet/weight lossACEI as per [id number]/16/20 met 500 QD to 500 BID given AC BG 200-220 c BG cb in 02/03/20 recommended basal insulin, but px preferred to try met 500 AC dinner09/24/19 +lester 50 to glim 4 BID09/01/19 7.5 and gave new Verio03/2018 7.7; therefore, increased 1 BID to 2 BID11/2017 6.812/2016 8.7; therefore, gave Verio Flex and + glim 1 AC BID04/2016 7. 6. 6.312/2013 6.06/2013 5. 6. 6.7 therefore ADA diet started04/2011 6.0July 2010 A1c up to 6. LES/creatinin 38 Next Appt Details c RET Reason: Provider Name:Landen Dyson, 2020-07-11 0 3:15:00 PM, [address] [place], [address], Insurance Providers Payer Name Payer Address Payer Phone Insured Name Patient Relati onship to Insured Coverage Start Date Coverage End Date [facility] [employer] [facility] [address] [address] [facility] [address] INA SORIANO
--- OUTSIDE RECORDS SUMMARY | 2020-06-22 04:11 | CCD ---
Author Author [facility] Organization [facility] Address Unknown Phone Unavailable Care Team Providers Care Asset Liability Analyst Name Role Phone Landen Dyson Unavailable PROBLEMS Type Condition ICD9-CM Code [id number] Code Onset Dates Condition S tatus SNOMED Code Notes Problem Vitamin B12 deficiency E53.8 Active 323911160 Problem CKD (chronic kidney disease) stage 3, GFR 30-59 ml/min N18.3 Active 870473574 Problem GERD (gastroesophageal reflux disease) K21.9 A ctive 318061897 Problem Hyperlipidemia E78.5 Active 84758162 Problem Overweight E66.3 Active 480808439 Problem Vitamin D deficiency E55.9 Active 24486879 Problem 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 Active 44207209 9 Problem Primary osteoarthritis of both knees M17.0 Act jasen 916863282 Problem 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.8 Active 280563116 Problem Mild dementia F03.90 Active 870952467073531 Problem Ataxia R27.0 Active 59713494 Problem Non-seasonal allergic rhinitis, unspecified trigger J30.89 Active 88883340 Problem Gout M10.9 Active 49395811 Problem Essential (primary) hypertension I10 Active 70936290 Problem 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.511 Active 980547735755347 Problem Prostate cancer C61 Active 460489041 Problem Chronic diastolic (congestive) heart failure I50.3 2 Active 727149967 Problem DJD (degenerative joint disease), 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 Active 267769059 Problem Seizure disorder G40.909 Active 188118952 Problem 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 Active 371437789 Problem Iron deficiency anemia, unspecified iron deficiency an emia type D50.9 Active 56075323 Problem PVD (peripheral vascular disease) I73.9 Active 010694382 ALLERGIES Allergen (clinical drug ingredient) Drug/Non Drug Allergy do cumented on EMR Reaction Allergy Type Onset Date Status evironmental watery eyes,sneezing Non Drug Allergy Active ENCOUNTERS from 1935 to 2020-05-18 Encounter Location Date Provider Diagnosis [address] [address] Apr, 021 Landen Dyosn IMMUNIZATIONS Vaccine Route Administration Date Status Influenza [...] School Language: Question Answer Notes Languages spoken: Latvian Catholic: Question Answer Notes Catholic No church beliefs that would impact health care. Sexual [...] as directed R60.9 Daily for 99 mo [facility] Apr, Active Potassium Chloride 10 MEQ 1 [...] MG 1 tab Orally bid Activ e Omeprazole 40 MG 1 capsule Orally Once a day for 90 day(s) Active Allopurinol 300 MG 1 tablet Orally Once a day for 90 day(s) Active Walker - 4 wheeled walker w/ seat Daily DX: R27.0 for 30 Days Oct, Active Allopurinol 300 MG 1 tablet Orally Once a day for 90 Active Cholecalciferol 5000 UNIT 1 capsule Orally Once a day for 90 day(s) Active Cyanocobalamin 500 MCG 1 tablet Orally Once a day for 90 day(s) Active Tresiba FlexTouch 200 UNIT/ML 10 units Subcutaneous On ce daily at HS for 30 Days Apr, Active Glimepiride 4 MG 1 tab Orally AC BID for 90 day(s) Active Voltaren 1 % clarification 5 gm to r knee , r index finger Transdermal four times daily as needed Active Lancets - marty contour ez subcutaneously AC BID DX: E11.8 for 90 d ay(s) Active Torsemide 20 MG 1 tab Orally every morning for 90 Active Rosuvastatin Calcium 20 MG 1 tablet Orally Daily for 90 day(s) Active Pen [place] as directed subcutaneously once daily for 30 Days Apr, Active Ferrous Sulfate 325 (65 Fe) MG 1 tablet Orally Once a day for 30 day( s) Active Omeprazole 40 MG 1 capsule Orally Once a day for 90 Active Potassium Chloride 10 MEQ 1 tablet Orally Twice a day for 90 Active Aspirin 81 MG 1 tablet Orally Once a day for 30 day(s) Active PROCEDURES No Information RESULTS No Results REASON FOR VISIT PA Tresiba FlexTouch 200unit/mL pen MEDICAL (GENERAL) HISTORY Type Description Date Medical [...] Medication Name Sig Start Date Stop Date Lancets - marty contour ez subcutaneously AC BID DX: E11. 8 for 90 day(s) Pen [place] as directed subcutaneously once daily for 30 Day s Apr, Rosuvastatin Calcium 20 MG 1 tablet Orally Daily for 90 day(s) Cyanocobalamin 500 MCG 1 tablet Orally Once a day for 90 day(s) Apixaban 5 MG 1 tab Orally bid Fluticasone Propionate 50 MCG/ACT 2 sprays in each nos tril Nasally every morning for 90 day(s) MetFORMIN HCl ER 500 MG 1 tab Orally AC BID for 90 day(s) Omeprazole 40 MG 1 capsule Orally Once a day for 90 day(s) Allopurinol 300 MG 1 tablet Orally Once a day for 90 day(s) Torsemide 20 MG 1 tab Orally every morning for 90 Tresiba FlexTouch 200 UNIT/ML 10 units Subcutaneous On ce daily at HS for 30 Days Apr, Glimepiride 4 MG 1 tab Orally AC [...] (s) Next Appt Details Provider Name:Kiana Womack, 04 11:15:00 AM, [address] [place] [address], [address], Provider Name:Landen Dyson, 2020-07-11 0 3:15:00 PM, [address] [place] [address], [address], Insurance Providers Payer Name Payer Address Payer Phone Insured Name Patient Relati onship to Insured Coverage Start Date Coverage End Date [facility] 20:20 [employer] [facility] [address] [address] [facility] [address] INA SORIANO
--- OUTSIDE RECORDS SUMMARY | 2020-06-22 04:11 | CCD ---
Author Author [facility] Organization [facility] Address Unknown Phone Unavailable Care Team Providers Care Yoghurt Maker Name Role Phone Landen Dyson Unavailable PROBLEMS Type Condition ICD9-CM Code [id number] Code Onset Dates Condition S tatus W/U Status Risk SNOMED Code Notes Problem Vitamin B12 deficiency E53.8 Active confirmed 850344946 Problem CKD (chronic kidney disease) stage 3, GFR 30-59 ml/min N18.3 Active confirmed 752722723 Problem GERD (gastroesophageal reflux disease) K21.9 A ctive confirmed 708009915 Problem Hyperlipidemia E78.5 Active confirmed 10184 004 Problem Overweight E66.3 Active confirmed 924581255 Problem Vitamin D deficiency E55.9 Active confirmed 72827617 Problem 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 Active confirmed 333466427 Problem Primary osteoarthritis of both knees M17.0 Act jasen confirmed 353364111 Problem 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.8 Active confirmed 125139905 Problem Mild dementia F03.90 Active confirmed 079107 732535497 Problem Ataxia R27.0 Active confirmed 52511051 Problem Non-seasonal allergic rhinitis, unspecified trigger J30.89 Active confirmed 12486665 Problem Gout M10.9 Active confirmed 45125584 Problem Essential (primary) hypertension I10 Active conf irmed 09395059 Problem 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.511 Active confirmed 423446565250018 Problem Prostate cancer C61 Active confirmed 3990 96261 Problem Chronic diastolic (congestive) heart failure I50.3 2 Active confirmed 892517985 Problem DJD (degenerative joint disease), 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 Active confirmed 491946219 Problem Seizure disorder G40.909 Active confirmed 12 4578513 Problem 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 Active confirmed 230 375134 Problem Iron deficiency anemia, unspecified iron deficiency an emia type D50.9 Active confirmed 77905678 Problem PVD (peripheral vascular disease) I73.9 Active confirmed 825262055 ALLERGIES Allergen (clinical drug ingredient) Drug/Non Drug Allergy do cumented on EMR Reaction Allergy Type Onset Date Status evironmental watery eyes,sneezing Non Drug Allergy Active ENCOUNTERS from 1935 to 2020-06-15 Encounter Location Date Provider Diagnosis [address] [place] [address] May, 021 Landen Dyson IMMUNIZATIONS Vaccine Route Administration Date [...] School Language: Question Answer Notes Languages spoken: Venezuelan Yarsani: Question Answer Notes Yarsani No yazidism beliefs that would impact health care. Sexual [...] Notes Start Da te End Date Status Lancets - marty contour ez subcutaneously AC BID DX: E11.8 for 90 d ay(s) Active Allopurinol 300 MG 1 tablet Orally Once a day for 90 day(s) Active Apixaban 5 MG 1 tab Orally bid Activ e Torsemide 20 MG 1 tab Orally every morning for 90 Active Omeprazole 40 MG 1 capsule Orally Once a day for 90 day(s) Active Glucometer _ One Touch Verio DX: E11.9 Daily use for 365 days Feb, Active Sitagliptin Phosphate 50 MG 1 tablet Orally every morning for 90 day( s) Active Glimepiride 4 MG 1 tab Orally AC BID for 90 day(s) Active Knee Compression Sleeve/L/XL 1 as directed R60.9 Daily for 99 mo [facility] Apr, Active Potassium Chloride 10 MEQ 1 tablet Orally Twice a day for 90 Active Tresiba FlexTouch 200 UNIT/ML 10 units Subcutaneous Once daily a t HS Apr, Active Voltaren 1 % clarification 5 gm to r knee , r index finger Transdermal four times daily as needed for 30 days Active Pen [place] as directed subcutaneously once daily for 30 Days Apr, Active Blood Glucose Test - marty countour ez subcutaneously A C BID for 9 0 day(s) Active Rosuvastatin Calcium 20 MG 1 tablet Orally Daily for 90 day(s) Active Aspirin 81 MG 1 tablet Orally Once a day for 30 day(s) Active MetFORMIN HCl ER 500 MG 1 tab Orally AC BID for 90 day(s) Active Ferrous Sulfate 325 (65 Fe) MG 1 tablet Orally every other day Active Fluticasone Propionate 50 MCG/ACT 2 sprays in each nos tril Nasally every morning for 90 day(s) Active Walker - 4 wheeled walker w/ seat Daily DX: R27.0 for 30 Days Oct, Active Vitamin D-3 5000 UNIT/ML 1 ml under the tongue Sublin gual Once a day for 30 day(s) Active Cyanocobalamin 500 MCG 1 tablet Orally Once a day for 90 day(s) Active PROCEDURES No Information RESULTS No Results REASON FOR VISIT feet swelling MEDICAL (GENERAL) HISTORY Type Description Date Medical [...] Information ASSESSMENTS No Information PLAN OF TREATMENT Next Appt Details Provider Name:Landen Deshpandeer, 2020-07-11 0 3:15:00 PM, [address] [place], [address], Insurance Providers Payer Name Payer Address Payer Phone Insured Name Patient Relati onship to Insured Coverage Start Date Coverage End Date [facility] [address] [address] [facility] [phone] INA SORIANO V self
--- OUTSIDE RECORDS SUMMARY | 2020-06-22 04:11 | CCD ---
Author Author [facility] Organization [facility] Address Unknown Phone Unavailable Care Team Providers Care Fabricating Machine Operator Name Role Phone Landen Dyson Unavailable PROBLEMS Type Condition ICD9-CM Code [id number] Code Onset Dates Condition S tatus SNOMED Code Notes Problem Vitamin B12 deficiency E53.8 Active 173274821 Problem CKD (chronic kidney disease) stage 3, GFR 30-59 ml/min N18.3 Active 480443447 Problem GERD (gastroesophageal reflux disease) K21.9 A ctive 409751678 Problem Hyperlipidemia E78.5 Active 00328788 Problem Overweight E66.3 Active 904683754 Problem Vitamin D deficiency E55.9 Active 97509624 Problem 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 Active 76710670 9 Problem Primary osteoarthritis of both knees M17.0 Act jasen 405179407 Problem 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.8 Active 989914811 Problem Mild dementia F03.90 Active 799658886258628 Problem Ataxia R27.0 Active 98749188 Problem Non-seasonal allergic rhinitis, unspecified trigger J30.89 Active 24968727 Problem Gout M10.9 Active 61497591 Problem Essential (primary) hypertension I10 Active 69264350 Problem 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.511 Active 965074272183528 Problem Prostate cancer C61 Active 988636168 Problem Chronic diastolic (congestive) heart failure I50.3 2 Active 619144875 Problem DJD (degenerative joint disease), 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 Active 237580896 Problem Seizure disorder G40.909 Active 680666412 Problem 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 Active 694352788 Problem Iron deficiency anemia, unspecified iron deficiency an emia type D50.9 Active 10336390 Problem PVD (peripheral vascular disease) I73.9 Active 014701646 ALLERGIES Allergen (clinical drug ingredient) Drug/Non Drug Allergy do cumented on EMR Reaction Allergy Type Onset Date Status evironmental watery eyes,sneezing Non Drug Allergy Active ENCOUNTERS from 1935 to 2020-05-27 Encounter Location Date Provider Diagnosis [address] [address] Apr, 021 Landen Dyson IMMUNIZATIONS Vaccine Route Administration [...] School Language: Question Answer Notes Languages spoken: Croatian Hoahaoism: Question Answer Notes Hoahaoism No orthodox beliefs that would impact health care. Sexual [...] as directed R60.9 Daily for 99 mo [facility] Apr, Active Potassium Chloride 10 MEQ 1 [...] Orally Daily for 90 day(s) Active Pen [place] as directed subcutaneously once daily for 30 [...] Information RESULTS No Results REASON FOR VISIT blood sugar MEDICAL (GENERAL) HISTORY Type Description Date Medical [...] DX: E11. 8 for 90 day(s) Pen [place] as directed subcutaneously once daily for 30 Day s 15 Apr, 2020 Rosuvastatin Calcium 20 MG 1 tablet Orally [...] ez subcutaneously A C BID fo r day(s) Potassium Chloride 10 MEQ 1 tablet Orally Twice a day for 90 day (s) Next Appt Details Provider Name:Kiana Womack, 04 11:15:00 AM, [address] [place] [address], [address], Provider Name:Landen Dyson, 2020-07-11 0 3:15:00 PM, [address] [place] [address], [address], Insurance Providers Payer Name Payer Address Payer Phone Insured Name Patient Relati onship to Insured Coverage Start Date Coverage End Date [facility] [address] [address] [facility] [id number] INA SORIANO
--- OUTSIDE RECORDS SUMMARY | 2020-06-22 04:11 | CCD ---
Author Author [facility] Organization [facility] Address Unknown Phone Unavailable Care Team Providers Care Mechanic Field Service Name Role Phone Landen Dyson Unavailable PROBLEMS Type Condition ICD9-CM Code [id number] Code Onset Dates Condition S tatus W/U Status Risk SNOMED Code Notes Problem Vitamin B12 deficiency E53.8 Active confirmed 911061416 Problem CKD (chronic kidney disease) stage 3, GFR 30-59 ml/min N18.3 Active confirmed 397265512 Problem GERD (gastroesophageal reflux disease) K21.9 A ctive confirmed 049784065 Problem Hyperlipidemia E78.5 Active confirmed 42426 004 Problem Overweight E66.3 Active confirmed 938771069 Problem Vitamin D deficiency E55.9 Active confirmed 61316673 Problem 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 Active confirmed 468866850 Problem Primary osteoarthritis of both knees M17.0 Act jasen confirmed 609066056 Problem 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.8 Active confirmed 045895461 Problem Mild dementia F03.90 Active confirmed 903917 028505863 Problem Ataxia R27.0 Active confirmed 48734412 Problem Non-seasonal allergic rhinitis, unspecified trigger J30.89 Active confirmed 35289206 Problem Gout M10.9 Active confirmed 71092667 Problem Essential (primary) hypertension I10 Active conf irmed 03126384 Problem 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.511 Active confirmed 547970426291519 Problem Prostate cancer C61 Active confirmed 3990 32769 Problem Chronic diastolic (congestive) heart failure I50.3 2 Active confirmed 686997744 Problem DJD (degenerative joint disease), 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 Active confirmed 295400126 Problem Seizure disorder G40.909 Active confirmed 12 0110223 Problem 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 Active confirmed 230 720431 Problem Iron deficiency anemia, unspecified iron deficiency an emia type D50.9 Active confirmed 62791430 Problem PVD (peripheral vascular disease) I73.9 Active confirmed 481858410 ALLERGIES Allergen (clinical drug ingredient) Drug/Non Drug Allergy do cumented on EMR Reaction Allergy Type Onset Date Status evironmental watery eyes,sneezing Non Drug Allergy Active ENCOUNTERS from 1935 to 2020-05-31 Encounter Location Date Provider Diagnosis [address] [place] [address] Apr, 021 Landen Dyson IMMUNIZATIONS Vaccine Route [...] School Language: Question Answer Notes Languages spoken: Stateless Orthodoxy: Question Answer Notes Orthodoxy No orthodoxy beliefs that would impact health care. Sexual [...] Notes Start Da te End Date Status Knee Compression Sleeve/L/XL 1 as directed R60.9 Daily for 99 mo [facility] Apr, Active Blood Glucose Test - marty countour ez subcutaneously A C BID for 9 0 day(s) Active Torsemide 20 MG 1 tab Orally every morning for 90 Active Potassium Chloride 10 MEQ 1 tablet Orally Twice a day for 90 day(s) Active Glucometer _ One Touch Verio DX: E11.9 Daily use for 365 days Feb, Active Eliquis 5 MG TAKE ONE TABLET BY MOUTH TWICE A DAY [STOP CLOPIDOGREL ] for 90 Active Ferrous Sulfate 325 (65 Fe) MG 1 tablet Orally every other day Active MetFORMIN HCl ER 500 MG 1 tab Orally AC BID for 90 day(s) Active Fluticasone Propionate 50 MCG/ACT 2 sprays in each nos tril Nasally every morning for 90 day(s) Active Allopurinol 300 MG 1 tablet Orally Once a day for 90 day(s) Active Rosuvastatin Calcium 20 MG 1 tablet Orally Daily for 90 day(s) Active Walker - 4 wheeled walker w/ seat Daily DX: R27.0 for 30 Days Oct, Active Tresiba FlexTouch 200 UNIT/ML 10 units Subcutaneous On ce daily at HS for 30 Days Apr, Active Glimepiride 4 MG 1 tab Orally AC BID for 90 day(s) Active Cyanocobalamin 500 MCG 1 tablet Orally Once a day for 90 day(s) Active Omeprazole 40 MG 1 capsule Orally Once a day for 90 day(s) Active Apixaban 5 MG 1 tab Orally bid Activ e Cholecalciferol 5000 UNIT 1 capsule Orally Once a day for 90 day(s) Active Lancets - marty contour ez subcutaneously AC BID DX: E11.8 for 90 d ay(s) Active Allopurinol 300 MG 1 tablet Orally Once a day for 90 Active Voltaren 1 % clarification 5 gm to r knee , r index finger Transdermal four times daily as needed for 5 Acti ve Pen [place] as directed subcutaneously once daily for 30 [...] RESULTS No Results REASON FOR VISIT blood sugars MEDICAL (GENERAL) HISTORY Type Description Date Medical [...] DX: E11. 8 for 90 day(s) Pen [place] as directed subcutaneously once daily for 30 Day s Apr, Voltaren 1 % clarification 5 gm to r knee , r index finger Transdermal four times daily as needed for 5 Cyanocobalamin 500 MCG 1 tablet Orally Once a day for 90 day(s) Fluticasone Propionate 50 MCG/ACT 2 sprays in each nos tril Nasally every morning for 90 day(s) Eliquis 5 MG TAKE ONE TABLET BY MOUTH TWICE A DAY [STOP CLOPI DOGREL] for 90 Torsemide 20 MG 1 tab Orally every morning for 90 MetFORMIN HCl ER 500 MG 1 tab Orally AC BID for 90 day(s) Allopurinol 300 MG 1 tablet Orally Once a day for 90 day(s) Rosuvastatin Calcium 20 MG 1 tablet Orally Daily for 90 day(s) Tresiba FlexTouch 200 UNIT/ML 10 units Subcutaneous On ce daily at HS for 30 Days Apr, Omeprazole 40 MG 1 capsule Orally Once a day for 90 day(s) Apixaban 5 MG 1 tab Orally bid Cholecalciferol 5000 UNIT 1 capsule Orally Once a day for 90 day (s) Glimepiride 4 MG 1 tab Orally AC BID for 90 day(s) Blood Glucose Test - marty countour ez subcutaneously A C BID fo r 90 day(s) Potassium Chloride 10 MEQ 1 tablet Orally Twice a day for 90 day (s) Next Appt Details Provider Name:Kiana Womack, 2-04 11:15:00 AM, [address] [place] [address], [phone], Provider Name:Landen Dyson, 2020-07-11 0 3:15:00 PM, [address] [place] [address], [phone], Insurance Providers Payer Name Payer Address Payer Phone Insured Name Patient Relati onship to Insured Coverage Start Date Coverage End Date [facility] [address] [address] [facility] [address] [phone] INA SORIANO
--- OUTSIDE RECORDS SUMMARY | 2020-06-22 04:11 | CCD ---
Author Author [facility] Organization [facility] Address Unknown Phone Unavailable Care Team Providers Care Medical Chemist Name Role Phone Landen Dyson Unavailable PROBLEMS Type Condition ICD9-CM Code [id number] Code Onset Dates Condition S tatus SNOMED Code Notes Problem Vitamin B12 deficiency E53.8 Active 496521462 Problem CKD (chronic kidney disease) stage 3, GFR 30-59 ml/min N18.3 Active 559139825 Problem GERD (gastroesophageal reflux disease) K21.9 A ctive 142620662 Problem Hyperlipidemia E78.5 Active 78907143 Problem Overweight E66.3 Active 862099776 Problem Vitamin D deficiency E55.9 Active 03960355 Problem 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 Active 67266111 9 Problem Primary osteoarthritis of both knees M17.0 Act jasen 208391343 Problem 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.8 Active 707316709 Problem Mild dementia F03.90 Active 492084889788658 Problem Ataxia R27.0 Active 42323624 Problem Non-seasonal allergic rhinitis, unspecified trigger J30.89 Active 00984637 Problem Gout M10.9 Active 96618089 Problem Essential (primary) hypertension I10 Active 20509194 Problem 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.511 Active 840566658546675 Problem Prostate cancer C61 Active 801066535 Problem Chronic diastolic (congestive) heart failure I50.3 2 Active 732226260 Problem DJD (degenerative joint disease), 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 Active 387117121 Problem Seizure disorder G40.909 Active 161640898 Problem 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 Active 152742328 Problem Iron deficiency anemia, unspecified iron deficiency an emia type D50.9 Active 70546146 Problem PVD (peripheral vascular disease) I73.9 Active 236081608 ALLERGIES Allergen (clinical drug ingredient) Drug/Non Drug Allergy do cumented on EMR Reaction Allergy Type Onset Date Status evironmental watery eyes,sneezing Non Drug Allergy Active ENCOUNTERS from 1935 to 2020-05-17 Encounter Location Date Provider Diagnosis [address] [address] Apr, 021 Landen Dyson IMMUNIZATIONS Vaccine Route [...] School Language: Question Answer Notes Languages spoken: Greek Judaism: Question Answer Notes Judaism No lutheran beliefs that would impact health care. Sexual [...] as directed R60.9 Daily for 99 mo [facility] Apr, Active Potassium Chloride 10 MEQ [...] Orally Daily for 90 day(s) Active Pen [place] as directed subcutaneously once daily for 30 [...] Information RESULTS No Results REASON FOR VISIT waiting on instructions on script? MEDICAL (GENERAL) HISTORY Type Description Date Medical [...] DX: E11. 8 for 90 day(s) Pen [place] as directed subcutaneously once daily for 30 [...] Details Provider Name:Kiana Womack, 04 11:15:00 AM, [address] [place] [address], [phone], Provider Name:Landen Dyson, 2020-07-11 0 3:15:00 PM, [address] [place] [address], [phone], Insurance Providers Payer Name Payer Address Payer Phone Insured Name Patient Relati onship to Insured Coverage Start Date Coverage End Date [facility] [address] [address] [facility] [address] [phone] INA SORIANO
--- OUTSIDE RECORDS SUMMARY | 2020-06-22 04:11 | CCD ---
Author Author [facility] Organization [facility] Address Unknown Phone Unavailable Care Team Providers Care Broadcasting Equipment Mechanic Name Role Phone Landen Dyson Unavailable PROBLEMS Type Condition ICD9-CM Code [id number] Code Onset Dates Condition S tatus SNOMED Code Notes Problem Vitamin B12 deficiency E53.8 Active 923181424 Problem CKD (chronic kidney disease) stage 3, GFR 30-59 ml/min N18.3 Active 441050848 Problem GERD (gastroesophageal reflux disease) K21.9 A ctive 406442712 Problem Hyperlipidemia E78.5 Active 53005236 Problem Overweight E66.3 Active 684169012 Problem Vitamin D deficiency E55.9 Active 72525118 Problem 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 Active 25249609 9 Problem Primary osteoarthritis of both knees M17.0 Act jasen 712010247 Problem 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.8 Active 537790047 Problem Mild dementia F03.90 Active 951386965637042 Problem Ataxia R27.0 Active 20110618 Problem Non-seasonal allergic rhinitis, unspecified trigger J30.89 Active 98844422 Problem Gout M10.9 Active 75466119 Problem Essential (primary) hypertension I10 Active 48568261 Problem 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.511 Active 035358368144284 Problem Prostate cancer C61 Active 111993729 Problem Chronic diastolic (congestive) heart failure I50.3 2 Active 857772237 Problem DJD (degenerative joint disease), 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 Active 394052638 Problem Seizure disorder G40.909 Active 268656632 Problem 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 Active 800428041 Problem Iron deficiency anemia, unspecified iron deficiency an emia type D50.9 Active 56573419 Problem PVD (peripheral vascular disease) I73.9 Active 441968649 ALLERGIES Allergen (clinical drug ingredient) Drug/Non Drug Allergy do cumented on EMR Reaction Allergy Type Onset Date Status evironmental watery eyes,sneezing Non Drug Allergy Active ENCOUNTERS from 1933 to 2020-05-12 Encounter Location Date Provider Diagnosis [address] [address] Apr, 021 Landen Dyson IMMUNIZATIONS Vaccine Route [...] School Language: Question Answer Notes Languages spoken: Swedish Confucianist: Question Answer Notes Confucianist No tenriism beliefs that would impact health care. Sexual [...] as directed R60.9 Daily for 99 mo [facility] Apr, Active MetFORMIN HCl ER 500 MG [...] Information RESULTS No Results REASON FOR VISIT Insulin MEDICAL (GENERAL) HISTORY Type Description Date Medical [...] Provider Name:Landen Dyson, 2020-07-11 0 3:15:00 PM, [address] [place] [address], [phone], Insurance Providers Payer Name Payer Address Payer Phone Insured Name Patient Relati onship to Insured Coverage Start Date Coverage End Date [facility] [employer] [facility] [address] [address] [facility] [phone] INA SORIANO
--- OUTSIDE RECORDS SUMMARY | 2020-06-22 04:12 | CCD ---
Author Author [facility] Organization [facility] Address Unknown Phone Unavailable Support Name Relationship Address Phone JOHNIE [place] [address] DESRUIOOSCAR Next Of [address] [place] [address] RE Next Of Kin Unknown Unavailable DESORMO EXCAVATING Next Of Kin [address] [place] [address] DESORMO, C[place] [address] DIMASOASHANTIDA Next Of Kin [address] [place] [address] Desormo, Pedrito ECON [address] [place] [address] Unavailable Desormo, [place] [address] Unavailable Re-disclosure Warning The records that you are about to access may contain information from federally-assisted alcohol or drug abuse programs. If such information is present, then the following federally mandated warning applies: This information has been disclosed to you from records protected by federal confidentiality rules (42 CFR part 2). The federal rules prohibit you from making any further disclosure of this information unless further disclosure is expressly permitted by the written consent of the person to whom it pertains or as otherwise permitted by 42 CFR part 2. A general authorization for the release of medical or other information is NOT sufficient for this purpose. The Federal rules restrict any use of the information to criminally investigate or prosecute any alcohol or drug abuse patient.The records that you are about to access may contain highly sensitive health information, the redisclosure of which is protected by Article 27-F of the [facility] Public Health law. If you continue you may have access to information: Regarding HIV / AIDS; Provided by facilities licensed or operated by the [facility] Office of Mental Health; or Provided by the [facility] Office for People With Developmental Disabilities. If such information is present, then the following [facility] mandated warning applies: This information has been disclosed to you from confidential records which are protected by state law. State law prohibits you from making any further disclosure of this information without the specific written consent of the person to whom it pertains, or as otherwise permitted by law. Any unauthorized further disclosure in violation of state law may result in a fine or fci sentence or both. A general authorization for the release of medical or other information is NOT sufficient authorization for further disc losure. Allergies and Adverse Reactions Type Description Substance Reaction Status Data Source(s ) evironmental evironmental evironmental watery eyes,sneezing Active eCW1 ([facility]) Encounters Encounter Providers Location Date Indications Data Source(s ) Unknown [address] [facility] [id number] 06/13/2020 12:00:00 AM EST eCW1 ([facility]) Outpatient [address] [facility] [id number] 06/02/2020 12:00:00 AM EST eCW1 ([facility]) Unknown [address] [facility] [id number] 05/26/2020 12:00:00 AM EST eCW1 ([facility]) Unknown [address] [facility] [id number] 05/26/2020 12:00:00 AM EST eCW1 ([facility]) Unknown [address] [facility] [id number] 05/17/2020 12:00:00 AM EST eCW1 ([facility]) Unknown [address] [facility] [place] [address] 05/16/2020 12:00:00 AM EST eCW1 ([facility]) Unknown [address] [facility] [id number] 05/12/2020 12:00:00 AM EST eCW1 ([facility]) Unknown [address] [facility] [id number] 05/12/2020 12:00:00 AM EST eCW1 ([facility]) [place] [address] [facility] [address] 04/27/2020 12:00:00 AM EST eCW1 ([facility]) [place] [address] [facility] [address] 04/12/2020 12:00:00 AM EST eCW1 ([facility]) [place] [address] [facility] [address] 03/17/2020 12:00:00 AM EST eCW1 ([facility]) [place] [address] [facility] [address] 03/14/2020 12:00:00 AM EST eCW1 ([facility]) [place] [address] [facility] [address] 03/11/2020 12:00:00 AM EST eCW1 ([facility]) [place] [address] [facility] [address] 03/08/2020 12:00:00 AM EST eCW1 ([facility]) [place] [address] [facility] [address] 03/03/2020 12:00:00 AM EST eCW1 ([facility]) [place] [address] [facility] [address] 03/03/2020 12:00:00 AM EST eCW1 ([facility]) Office Visit, Est Pt., Level 3 PC [address] [place] [address] 03/02/2020 12:00:00 AM EST eCW1 ([facility]) [place] [address] [facility] [address] 02/29/2020 12:00:00 AM EST eCW1 ([facility]) [facility] [place] [address] [facility] [address] 02/26/2020 12:00:00 AM EDT eCW1 ([facility]) [place] [address] [facility] [address] 02/25/2020 12:00:00 AM EDT eCW1 ([facility]) Office Visit, Est Pt., Level 3 PC [address] [place] [address] 02/16/2020 12:00:00 AM EDT eCW1 ([facility]) [place] [address] [facility] [address] 02/03/2020 12:00:00 AM EDT eCW1 ([facility]) [place] [address] [facility] [address] 11/19/2019 12:00:00 AM EDT eCW1 ([facility]) [place] [address] [facility] [address] 11/18/2019 12:00:00 AM EDT eCW1 ([facility]) [place] [address] [facility] [address] 10/05/2019 12:00:00 AM EDT eCW1 ([facility]) [facility] [address] [facility] [address] 09/24/2019 12:00:00 AM EDT eCW1 ([facility]) [facility] [address] [facility] [address] 09/16/2019 12:00:00 AM EDT eCW1 ([facility]) [facility] [address] [facility] [address] 09/08/2019 12:00:00 AM EDT eCW1 ([facility]) [facility] [address] [facility] [address] 07/23/2019 12:00:00 AM EDT eCW1 ([facility]) [facility] [address] [facility] [address] 07/08/2019 12:00:00 AM EDT [facility]CW1 [facility] [address] [address] 07/08/2019 12:00:00 AM EDT eCW1 ([facility]) [address] [address] 06/24/2019 12:00:00 AM EST eCW1 ([facility]) [address] [address] 06/15/2019 12:00:00 AM EST eCW1 ([facility]) [address] [address] 05/28/2019 12:00:00 AM EST eCW1 ([facility]) [address] [address] 05/08/2019 12:00:00 AM EST eCW1 ([facility]) [address] [address] 05/07/2019 12:00:00 AM EST eCW1 ([facility]) [address] [address] 04/24/2019 12:00:00 AM EST eCW1 ([facility]) Medications Medication Brand Name Start Date Product Form Dose Route Admi nistrative Instructions Pharmacy Instructions Status Indications Reaction Description Data Source(s) Potassium Chloride 10 MEQ Extended Release Oral Tablet POTAS SIUM CHLORIDE 06/11/2020 12:00:00 AM EST tablet extended release 180 TAKE ONE TABLET BY MOUTH TWO TIMES A DAY TAKE ONE TABLET BY MOUTH TWO TIMES A DAY SOLD: 06/12/2020 [facility] 5 mg 05/31/2020 12:00:00 AM EST tablet 180 TAKE ONE TABLET BY MOUTH TWICE A DAY TAKE ONE TABLET BY MOUTH TWICE A DAY SOLD: 06/02/2020 [facility] 1 % 05/31/2020 12:00:00 AM EST gel 100 APPLY 5GRAMS TO RIGHT KNEE AND RIGHT INDEX FINGER FOUR TIMES A DAY NEEDED APPLY 5GRAMS TO RIGHT KNEE AND RIGHT INDEX FINGER FOUR TIMES A DAY NEEDED SOLD: 06/02/2020 [facility] 40 mg 05/28/2020 12:00:00 AM EST capsule,delayed release (DR/EC) 90 TAKE ONE CAPSULE BY MOUTH EVERY DAY TAKE ONE CAPSULE BY MOUTH EVERY DAY SOLD: 05/30/2020 [facility] 200 unit/mL (3 mL) 05/17/2020 12:00:00 AM EST insulin pen 9 INJECT 10 UNITS UNDER THE SKIN AT BEDTIME INJECT 10 UNITS UNDER THE SKIN AT BEDTIME SOLD: 05/17/2020 [facility] [place] UNK 05/13/2020 12:00:00 AM EST active [place] eCW1 ([facility]) Tresiba FlexTouch 200 UNIT/ML Tresiba FlexTouch 200 UNIT/ML 05/13/2020 12:00:00 AM EST active Tresiba FlexTouch 200 UNIT/ML eCW1 ([facility]) Tresiba FlexTouch 200 UNIT/ML Tresiba FlexTouch 200 UNIT/ML 05/13/2020 12:00:00 AM EST active Tresiba FlexTouch 200 UNIT/ML eCW1 ([facility]) Tresiba FlexTouch 200 UNIT/ML Tresiba FlexTouch 200 UNIT/ML 05/13/2020 12:00:00 AM EST active Tresiba FlexTouch 200 UNIT/ML eCW1 ([facility]) 31 gauge x 3/16" 05/13/2020 12:00:00 AM EST needle 30 USE DIRECTED ONCE DAILY USE DIRECTED ONCE DAILY SOLD: 06/16/2020 [facility] [place] UNK 05/13/2020 12:00:00 AM EST active [place] eCW1 ([facility]) Tresiba FlexTouch 200 UNIT/ML Tresiba FlexTouch 200 UNIT/ML 05/13/2020 12:00:00 AM EST active Tresiba FlexTouch 200 UNIT/ML eCW1 ([facility]) [place] UNK 05/13/2020 12:00:00 AM EST active [place] eCW1 ([facility]) [place] UNK 05/13/2020 12:00:00 AM EST active [place] eCW1 ([facility]) [place] UNK 05/13/2020 12:00:00 AM EST active [place] eCW1 ([facility]) [place] UNK 05/13/2020 12:00:00 AM EST active [place] eCW1 ([facility]) Tresiba FlexTouch 200 UNIT/ML Tresiba FlexTouch 200 UNIT/ML 05/13/2020 12:00:00 AM EST active Tresiba FlexTouch 200 UNIT/ML eCW1 ([facility]) [place] UNK 05/13/2020 12:00:00 AM EST active [place] eCW1 ([facility]) Tresiba FlexTouch 200 UNIT/ML Tresiba FlexTouch 200 UNIT/ML 05/13/2020 12:00:00 AM EST active Tresiba FlexTouch 200 UNIT/ML eCW1 ([facility]) Tresiba FlexTouch 200 UNIT/ML Tresiba FlexTouch 200 UNIT/ML 05/13/2020 12:00:00 AM EST active Tresiba FlexTouch 200 UNIT/ML eCW1 ([facility]) 31 gauge x 3/16" 05/13/2020 12:00:00 AM EST needle 30 USE DIRECTED ONCE DAILY USE DIRECTED ONCE DAILY SOLD: 05/17/2020 [facility] 20 mg 04/26/2020 12:00:00 AM EST tablet 80 TAKE ONE TABLET BY MOUTH EVERY MORNING TAKE ONE TABLET BY MOUTH EVERY MORNING SOLD: 05/10/2020 [facility] 20 mg 04/26/2020 12:00:00 AM EST tablet 10 TAKE ONE TABLET BY MOUTH EVERY MORNING TAKE ONE TABLET BY MOUTH EVERY MORNING SOLD: 04/28/2020 [facility] 500 mg 03/14/2020 12:00:00 AM EST tablet extended release 24 hr 180 TAKE ONE TABLET BY MOUTH TWICE A DAY BEFORE MEALS TAKE ONE TABLET BY MOUTH TWICE A DAY BEFORE MEALS SOLD: 03/14/2020 [facility] LANCETS 03/14/2020 12:00:00 AM EST misc 180 TEST TWO TIMES A DAY BEFORE MEALS TEST TWO TIMES A DAY BEFORE MEALS SOLD: 06/12/2020 [facility] glimepiride 4 MG Oral Tablet GLIMEPIRIDE 03/14/2020 12:00:00 AM EST t ablet 180 TAKE ONE TABLET BY MOUTH TWICE A DAY BEFORE MEALS TAKE ONE TABLET BY MOUTH TWICE A DAY BEFORE MEALS SOLD: 03/14/2020 [facility] LANCETS 03/14/2020 12:00:00 AM EST misc 180 TEST TWO TIMES A DAY BEFORE MEALS TEST TWO TIMES A DAY BEFORE MEALS SOLD: 03/14/2020 [facility] 500 mg 03/14/2020 12:00:00 AM EST tablet extended release 24 hr 180 TAKE ONE TABLET BY MOUTH TWICE A DAY BEFORE MEALS TAKE ONE TABLET BY MOUTH TWICE A DAY BEFORE MEALS SOLD: 06/12/2020 [facility] glimepiride 4 MG Oral Tablet GLIMEPIRIDE 03/14/2020 12:00:00 AM EST t ablet 180 TAKE ONE TABLET BY MOUTH TWICE A DAY BEFORE MEALS TAKE ONE TABLET BY MOUTH TWICE A DAY BEFORE MEALS SOLD: 06/12/2020 [facility] 500 mg 03/04/2020 12:00:00 AM EST tablet extended release 24 hr 30 TAKE ONE TABLET BY MOUTH EVERY DAY WITH EVENING MEAL TAKE ONE TABLET BY MOUTH EVERY DAY WITH EVENING MEAL SOLD: 03/05/2020 [facility] 50 mg 03/01/2020 12:00:00 AM EST tablet 90 TAKE ONE TABLET BY MOUTH DIRECTED TAKE ONE TABLET BY MOUTH DIRECTED SOLD: 03/05/2020 [facility] 50 mg 03/01/2020 12:00:00 AM EST tablet 90 TAKE ONE TABLET BY MOUTH DIRECTED TAKE ONE TABLET BY MOUTH DIRECTED SOLD: 06/02/2020 [facility] Rosuvastatin calcium 20 MG Oral Tablet ROSUVASTATIN CALCIUM 02/26/2020 12:00:00 AM EDT tablet 90 TAKE ONE TABLET BY MOUTH MITRA DAY TAKE ONE TABLET BY MOUTH EVERY DAY SOLD: 02/27/2020 [facility] glimepiride 2 MG Oral Tablet GLIMEPIRIDE 02/26/2020 12:00:00 AM EDT t ablet 360 TAKE TWO TABLETS BY MOUTH TWICE A DAY BEFORE MEALS GILL E TWO TABLETS BY MOUTH TWICE A DAY BEFORE MEALS SOLD: 02/27/2020 [facility] 20 mg 02/26/2020 12:00:00 AM EDT tablet 90 TAKE ONE TABLET BY MOUTH EVERY MORNING TAKE ONE TABLET BY MOUTH EVERY MORNING SOLD: 02/27/2020 [facility] Rosuvastatin calcium 20 MG Oral Tablet ROSUVASTATIN CALCIUM 02/26/2020 12:00:00 AM EDT tablet 90 TAKE ONE TABLET BY MOUTH MITRA DAY TAKE ONE TABLET BY MOUTH EVERY DAY SOLD: 05/26/2020 [facility] 5 mg 02/26/2020 12:00:00 AM EDT tablet 180 TAKE ONE TABLET BY MOUTH TWO TIMES A DAY - STOP CLOPIDOGREL TAKE ONE TABLET BY MOUTH TWO TIMES A DAY - STOP CLOPIDOGREL SOLD: 02/27/2020 [facility] Potassium Chloride 10 MEQ Extended Release Oral Tablet POTAS SIUM CHLORIDE 02/24/2020 12:00:00 AM EDT tablet extended release 180 TAKE ONE TABLET BY MOUTH TWICE A DAY TAKE ONE TABLET BY MOUTH TWICE A DAY SOLD: 02/25/2020 [facility] 40 mg 02/20/2020 12:00:00 AM EDT capsule,delayed release (DR/EC) 90 TAKE ONE CAPSULE BY MOUTH ONCE A DAY TAKE ONE CAPSULE BY MOUTH ONCE A DAY SOLD: 02/22/2020 [facility] torsemide 20 MG Oral Tablet Torsemide 20 MG Torsemide 20 MG 02/17/2020 12:00:00 AM EDT 1.0 {tablet} active Torsemide 2 0 MG eCW1 ([facility]) torsemide 10 MG Oral Tablet Torsemide 10 MG Torsemide 10 MG 02/17/2020 12:00:00 AM EDT 1.0 {tablet} active Torsemide 1 0 MG eCW1 ([facility]) 10 mg 02/17/2020 12:00:00 AM EDT tablet 30 TAKE ONE TABLET BY MOUTH EVERY DAY TAKE ONE TABLET BY MOUTH EVERY DAY SOLD: 02/17/2020 [facility] torsemide 10 MG Oral Tablet Torsemide 10 MG Torsemide 10 MG 02/17/2020 12:00:00 AM EDT 1.0 {tablet} active Torsemide 1 0 MG eCW1 ([facility]) torsemide 20 MG Oral Tablet Torsemide 20 MG Torsemide 20 MG 02/17/2020 12:00:00 AM EDT 1.0 {tablet} active Torsemide 2 0 MG eCW1 ([facility]) torsemide 10 MG Oral Tablet Torsemide 10 MG Torsemide 10 MG 02/17/2020 12:00:00 AM EDT 1.0 {tablet} active Torsemide 1 0 MG eCW1 ([facility]) torsemide 20 MG Oral Tablet Torsemide 20 MG Torsemide 20 MG 02/17/2020 12:00:00 AM EDT 1.0 {tablet} active Torsemide 2 0 MG eCW1 ([facility]) torsemide 10 MG Oral Tablet Torsemide 10 MG Torsemide 10 MG 02/17/2020 12:00:00 AM EDT 1.0 {tablet} active Torsemide 1 0 MG eCW1 ([facility]) torsemide 10 MG Oral Tablet Torsemide 10 MG Torsemide 10 MG 02/17/2020 12:00:00 AM EDT 1.0 {tablet} active Torsemide 1 0 MG eCW1 ([facility]) torsemide 10 MG Oral Tablet Torsemide 10 MG Torsemide 10 MG 02/17/2020 12:00:00 AM EDT 1.0 {tablet} active Torsemide 1 0 MG eCW1 ([facility]) 500 mg 02/06/2020 12:00:00 AM EDT tablet extended release 24 hr 30 TAKE 1 TABLET ONCE DAILY WITH EVENING MEAL TAKE 1 TABLET ONCE DAILY WITH EVENING MEAL SOLD: 02/08/2020 [facility] MetFORMIN HCl ER 500 MG MetFORMIN HCl ER 500 MG 02/03/2020 12:00:00 AM EDT 1.0 {tablet_with_evening_meal} active MetFO RMIN HCl ER 500 MG eCW1 ([facility]) MetFORMIN HCl ER 500 MG MetFORMIN HCl ER 500 MG 02/03/2020 12:00:00 AM EDT 1.0 {tablet_with_evening_meal} active MetFO RMIN HCl ER 500 MG eCW1 ([facility]) MetFORMIN HCl ER 500 MG MetFORMIN HCl ER 500 MG 02/03/2020 12:00:00 AM EDT 1.0 {tablet_with_evening_meal} active MetFO RMIN HCl ER 500 MG eCW1 ([facility]) MetFORMIN HCl ER 500 MG MetFORMIN HCl ER 500 MG 02/03/2020 12:00:00 AM EDT 1.0 {tablet_with_evening_meal} active MetFO RMIN HCl ER 500 MG eCW1 ([facility]) 24 HR Metformin hydrochloride 500 MG Ext ended Release Oral Tablet MetFORMIN HCl ER 500 MG MetFORMIN HCl ER 500 MG 02/03/2020 12:00:00 AM EDT 1.0 {tablet_with_evening_meal} active MetFO RMIN HCl ER 500 MG eCW1 ([facility]) MetFORMIN HCl ER 500 MG MetFORMIN HCl ER 500 MG 02/03/2020 12:00:00 AM EDT 1.0 {tablet_with_evening_meal} active MetFO RMIN HCl ER 500 MG eCW1 ([facility]) BLOOD SUGAR DIAGNOSTIC 01/23/2020 12:00:00 AM EDT strip 100 USE TWO TIMES A DAY USE TWO TIMES A DAY SOLD: 05/02/2020 [facility] BLOOD SUGAR DIAGNOSTIC 01/23/2020 12:00:00 AM EDT strip 100 USE TWO TIMES A DAY USE TWO TIMES A DAY SOLD: 01/25/2020 [facility] BLOOD SUGAR DIAGNOSTIC 01/23/2020 12:00:00 AM EDT strip 100 USE TWO TIMES A DAY USE TWO TIMES A DAY SOLD: 03/14/2020 [facility] 300 mg 01/21/2020 12:00:00 AM EDT tablet 90 TAKE ONE TABLET BY MOUTH DAILY TAKE ONE TABLET BY MOUTH DAILY SOLD: 04/26/2020 [facility] 300 mg 01/21/2020 12:00:00 AM EDT tablet 90 TAKE ONE TABLET BY MOUTH DAILY TAKE ONE TABLET BY MOUTH DAILY SOLD: 01/23/2020 [facility] 5 mg 12/01/2019 12:00:00 AM EDT tablet 180 TAKE ONE TABLET BY MOUTH TWICE A DAY [STOP CLOPIDOGREL] TAKE ONE TABLET BY MOUTH TWICE A DAY [STOP CLOPIDOGREL ] SOLD: 12/01/2019 [facility] Walker - Walker - 11/19/2019 12:00:00 AM EDT activ e Walker - eCW1 ([facility]) Walker - Walker - 11/19/2019 12:00:00 AM EDT activ e Walker - eCW1 ([facility]) Walker - Walker - 11/19/2019 12:00:00 AM EDT activ e Walker - eCW1 ([facility]) Walker - Walker - 11/19/2019 12:00:00 AM EDT activ e Walker - eCW1 ([facility]) Walker - Walker - 11/19/2019 12:00:00 AM EDT activ e Walker - eCW1 ([facility]) Walker - Walker - 11/19/2019 12:00:00 AM EDT activ e Walker - eCW1 ([facility]) Walker - Walker - 11/19/2019 12:00:00 AM EDT activ e Walker - eCW1 ([facility]) Walker - Walker - 11/19/2019 12:00:00 AM EDT activ e Walker - eCW1 ([facility]) Walker - Walker - 11/19/2019 12:00:00 AM EDT activ e Walker - eCW1 ([facility]) Walker - Walker - 11/19/2019 12:00:00 AM EDT activ e Walker - eCW1 ([facility]) Walker - Walker - 11/19/2019 12:00:00 AM EDT activ e Walker - eCW1 ([facility]) Walker - Walker - 11/19/2019 12:00:00 AM EDT activ e Walker - eCW1 ([facility]) Walker - Walker - 11/19/2019 12:00:00 AM EDT activ e Walker - eCW1 ([facility]) 75 mg 11/19/2019 12:00:00 AM EDT tablet 90 TAKE ONE TABLET BY MOUTH DAILY TAKE ONE TABLET BY MOUTH DAILY SOLD: 11/23/2019 [facility] Walker - Walker - 11/19/2019 12:00:00 AM EDT activ e Walker - eCW1 ([facility]) Walker - Walker - 11/19/2019 12:00:00 AM EDT activ e Walker - eCW1 ([facility]) Walker - Walker - 11/19/2019 12:00:00 AM EDT activ e Walker - eCW1 ([facility]) Walker - Walker - 11/19/2019 12:00:00 AM EDT activ e Walker - eCW1 ([facility]) 20 mg 11/19/2019 12:00:00 AM EDT tablet 90 TAKE ONE TABLET BY MOUTH EVERY MORNING TAKE ONE TABLET BY MOUTH EVERY MORNING SOLD: 11/23/2019 [facility] Walker - Walker - 11/19/2019 12:00:00 AM EDT activ e Walker - eCW1 ([facility]) glimepiride 2 MG Oral Tablet GLIMEPIRIDE 11/19/2019 12:00:00 AM EDT t ablet 360 TAKE TWO TABLETS BY MOUTH BEFORE MEALS TWO TIMES A DAY TAKE TWO TABLETS BY MOUTH BEFORE MEALS TWO TIMES A DAY SOLD: 11/23/2019 [facility] Walker - Walker - 11/19/2019 12:00:00 AM EDT activ e Walker - eCW1 ([facility]) Walker - Walker - 11/19/2019 12:00:00 AM EDT activ e Walker - eCW1 ([facility]) Walker - Walker - 11/19/2019 12:00:00 AM EDT activ e Walker - eCW1 ([facility]) Walker - Walker - 11/19/2019 12:00:00 AM EDT activ e Walker - eCW1 ([facility]) Walker - Walker - 11/19/2019 12:00:00 AM EDT activ e Walker - eCW1 ([facility]) Walker - Walker - 11/19/2019 12:00:00 AM EDT activ e Walker - eCW1 ([facility]) Walker - Walker - 11/19/2019 12:00:00 AM EDT activ e Walker - eCW1 ([facility]) BLOOD SUGAR DIAGNOSTIC 11/03/2019 12:00:00 AM EDT strip 100 USE DIRECTED DAILY USE DIRECTED DAILY SOLD: 11/03/2019 [facility] LANCETS 10/06/2019 12:00:00 AM EDT misc 100 TEST ONCE DAILY TEST ONCE DAILY SOLD: 10/06/2019 [facility] LANCETS 10/06/2019 12:00:00 AM EDT misc 100 TEST ONCE DAILY TEST ONCE DAILY SOLD: 12/28/2019 [facility] 50 mg 09/25/2019 12:00:00 AM EDT tablet 90 TAKE ONE TABLET BY MOUTH EVERY DAY DIRECTED TAKE ONE TABLET BY MOUTH EVERY DAY DIRECTED SOLD: 020 [facility] 50 mg 09/25/2019 12:00:00 AM EDT tablet 90 TAKE ONE TABLET BY MOUTH EVERY DAY DIRECTED TAKE ONE TABLET BY MOUTH EVERY DAY DIRECTED SOLD: 020 [facility] sitagliptin 50 MG Oral Tablet [Januvia] Januvia 50 MG Januvi a 50 MG 09/24/2019 12:00:00 AM EDT active Januvia 50 MG eCW1 ([facility]) sitagliptin 50 MG Oral Tablet [Januvia] Januvia 50 MG Januvi a 50 MG 09/24/2019 12:00:00 AM EDT active Januvia 50 MG eCW1 ([facility]) sitagliptin 50 MG Oral Tablet [Januvia] Januvia 50 MG Januvi a 50 MG 09/24/2019 12:00:00 AM EDT active as direc barbara eCW1 ([facility]) sitagliptin 50 MG Oral Tablet [Januvia] Januvia 50 MG Januvi a 50 MG 09/24/2019 12:00:00 AM EDT active Januvia 50 MG eCW1 ([facility]) sitagliptin 50 MG Oral Tablet [Januvia] Januvia 50 MG Januvi a 50 MG 09/24/2019 12:00:00 AM EDT active Januvia 50 MG eCW1 ([facility]) sitagliptin 50 MG Oral Tablet [Januvia] Januvia 50 MG Januvi a 50 MG 09/24/2019 12:00:00 AM EDT active Januvia 50 MG eCW1 ([facility]) sitagliptin 50 MG Oral Tablet [Januvia] Januvia 50 MG Januvi a 50 MG 09/24/2019 12:00:00 AM EDT active Januvia 50 MG eCW1 ([facility]) glimepiride 2 MG Oral Tablet GLIMEPIRIDE 09/18/2019 12:00:00 AM EDT t ablet 120 TAKE TWO TABLETS BY MOUTH TWICE A DAY BEFORE MEALS GILL E TWO TABLETS BY MOUTH TWICE A DAY BEFORE MEALS SOLD: 09/19/2019 [facility] 20 mg 09/09/2019 12:00:00 AM EDT tablet 90 TAKE ONE TABLET BY MOUTH EVERY DAY TAKE ONE TABLET BY MOUTH EVERY DAY SOLD: 09/09/2019 [facility] 50 mcg/actuation 09/09/2019 12:00:00 AM EDT spray,suspension 48 SPRAY TWO SPRAYS IN EACH NOSTRIL EVERY MORNING SPRAY TWO SPRAYS IN EACH NOSTRIL EVERY MORNING SOLD: 09/09/2019 [facility] 20 mg 09/09/2019 12:00:00 AM EDT tablet 90 TAKE ONE TABLET BY MOUTH EVERY DAY TAKE ONE TABLET BY MOUTH EVERY DAY SOLD: 12/04/2019 [facility] 50 mcg/actuation 09/09/2019 12:00:00 AM EDT spray,suspension 48 SPRAY TWO SPRAYS IN EACH NOSTRIL EVERY MORNING SPRAY TWO SPRAYS IN EACH NOSTRIL EVERY MORNING SOLD: 05/03/2020 [facility] Fluticasone Propionate 50 MCG/ACT Fluticasone Propionate 50 MCG/ACT 09/08/2019 12:00:00 AM EDT 2.0 {sprays_in_each_nostril} act jasen Fluticasone Propionate 50 MCG/ACT eCW1 ([facility]) Fluticasone Propionate 50 MCG/ACT Fluticasone Propionate 50 MCG/ACT 09/08/2019 12:00:00 AM EDT active 2 sprays in each nostril eCW1 ([facility]) Fluticasone Propionate 50 MCG/ACT Fluticasone Propionate 50 MCG/ACT 09/08/2019 12:00:00 AM EDT 2.0 {sprays_in_each_nostril} act jasen Fluticasone Propionate 50 MCG/ACT eCW1 ([facility]) Fluticasone Propionate 50 MCG/ACT Fluticasone Propionate 50 MCG/ACT 09/08/2019 12:00:00 AM EDT 2.0 {sprays_in_each_nostril} act jasen Fluticasone Propionate 50 MCG/ACT eCW1 ([facility]) Fluticasone Propionate 50 MCG/ACT Fluticasone Propionate 50 MCG/ACT 09/08/2019 12:00:00 AM EDT 2.0 {sprays_in_each_nostril} act jasen Fluticasone Propionate 50 MCG/ACT eCW1 ([facility]) Fluticasone Propionate 50 MCG/ACT Fluticasone Propionate 50 MCG/ACT 09/08/2019 12:00:00 AM EDT 2.0 {sprays_in_each_nostril} act jasen Fluticasone Propionate 50 MCG/ACT eCW1 ([facility]) Fluticasone Propionate 50 MCG/ACT Fluticasone Propionate 50 MCG/ACT 09/08/2019 12:00:00 AM EDT 2.0 {sprays_in_each_nostril} act jasen Fluticasone Propionate 50 MCG/ACT eCW1 ([facility]) Fluticasone Propionate 50 MCG/ACT Fluticasone Propionate 50 MCG/ACT 09/08/2019 12:00:00 AM EDT 2.0 {sprays_in_each_nostril} act jasen Fluticasone Propionate 50 MCG/ACT eCW1 ([facility]) Fluticasone Propionate 50 MCG/ACT Fluticasone Propionate 50 MCG/ACT 09/08/2019 12:00:00 AM EDT 2.0 {sprays_in_each_nostril} act jasen Fluticasone Propionate 50 MCG/ACT eCW1 ([facility]) Fluticasone Propionate 50 MCG/ACT Fluticasone Propionate 50 MCG/ACT 09/08/2019 12:00:00 AM EDT 2.0 {sprays_in_each_nostril} act jasen Fluticasone Propionate 50 MCG/ACT eCW1 ([facility]) Fluticasone Propionate 50 MCG/ACT Fluticasone Propionate 50 MCG/ACT 09/08/2019 12:00:00 AM EDT 2.0 {sprays_in_each_nostril} act jasen Fluticasone Propionate 50 MCG/ACT eCW1 ([facility]) Fluticasone Propionate 50 MCG/ACT Fluticasone Propionate 50 MCG/ACT 09/08/2019 12:00:00 AM EDT 2.0 {sprays_in_each_nostril} act jasen Fluticasone Propionate 50 MCG/ACT eCW1 ([facility]) Fluticasone Propionate 50 MCG/ACT Fluticasone Propionate 50 MCG/ACT 09/08/2019 12:00:00 AM EDT 2.0 {sprays_in_each_nostril} act jasen Fluticasone Propionate 50 MCG/ACT eCW1 ([facility]) Fluticasone Propionate 50 MCG/ACT Fluticasone Propionate 50 MCG/ACT 09/08/2019 12:00:00 AM EDT 2.0 {sprays_in_each_nostril} act jasen Fluticasone Propionate 50 MCG/ACT eCW1 ([facility]) Potassium Chloride 10 MEQ Extended Release Oral Tablet POTAS SIUM CHLORIDE 09/02/2019 12:00:00 AM EDT tablet extended release 180 TAKE ONE TABLET BY MOUTH TWICE A DAY TAKE ONE TABLET BY MOUTH TWICE A DAY SOLD: 09/05/2019 [facility] Potassium Chloride 10 MEQ Extended Release Oral Tablet POTAS SIUM CHLORIDE 09/02/2019 12:00:00 AM EDT tablet extended release 180 TAKE ONE TABLET BY MOUTH TWICE A DAY TAKE ONE TABLET BY MOUTH TWICE A DAY SOLD: 12/04/2019 [facility] 40 mg 08/28/2019 12:00:00 AM EDT capsule,delayed release (DR/EC) 90 TAKE ONE CAPSULE BY MOUTH EVERY DAY TAKE ONE CAPSULE BY MOUTH EVERY DAY SOLD: 11/23/2019 [facility] 40 mg 08/28/2019 12:00:00 AM EDT capsule,delayed release (DR/EC) 90 TAKE ONE CAPSULE BY MOUTH EVERY DAY TAKE ONE CAPSULE BY MOUTH EVERY DAY SOLD: 08/31/2019 [facility] 300 mg 07/24/2019 12:00:00 AM EDT tablet 90 TAKE ONE TABLET BY MOUTH EVERY DAY TAKE ONE TABLET BY MOUTH EVERY DAY SOLD: 07/28/2019 [facility] 300 mg 07/24/2019 12:00:00 AM EDT tablet 90 TAKE ONE TABLET BY MOUTH EVERY DAY TAKE ONE TABLET BY MOUTH EVERY DAY SOLD: 10/23/2019 [facility] 75 mg 05/30/2019 12:00:00 AM EST tablet 90 TAKE ONE TABLET BY MOUTH EVERY DAY TAKE ONE TABLET BY MOUTH EVERY DAY SOLD: 08/26/2019 [facility] 75 mg 05/30/2019 12:00:00 AM EST tablet 90 TAKE ONE TABLET BY MOUTH EVERY DAY TAKE ONE TABLET BY MOUTH EVERY DAY SOLD: 06/01/2019 [facility] glimepiride 2 MG Oral Tablet GLIMEPIRIDE 05/29/2019 12:00:00 AM EST t ablet 180 TAKE ONE TABLET BY MOUTH TWO TIMES A DAY BEFORE MEALS TAKE ONE TABLET BY MOUTH TWO TIMES A DAY BEFORE MEALS SOLD: 08/26/2019 [facility] glimepiride 2 MG Oral Tablet GLIMEPIRIDE 05/29/2019 12:00:00 AM EST t ablet 180 TAKE ONE TABLET BY MOUTH TWO TIMES A DAY BEFORE MEALS TAKE ONE TABLET BY MOUTH TWO TIMES A DAY BEFORE MEALS SOLD: 06/01/2019 [facility] 1 % 05/09/2019 12:00:00 AM EST gel 100 APPLY 5GRAMS TO RIGHT KNEE AND RIGHT INDEX FINGER FOUR TIMES A DAY NEEDED APPLY 5GRAMS TO RIGHT KNEE AND RIGHT INDEX FINGER FOUR TIMES A DAY NEEDED SOLD: 10/24/2019 [facility] 1 % 05/09/2019 12:00:00 AM EST gel 100 APPLY 5GRAMS TO RIGHT KNEE AND RIGHT INDEX FINGER FOUR TIMES A DAY NEEDED APPLY 5GRAMS TO RIGHT KNEE AND RIGHT INDEX FINGER FOUR TIMES A DAY NEEDED SOLD: 07/22/2019 [facility] 1 % 05/09/2019 12:00:00 AM EST gel 100 APPLY 5GRAMS TO RIGHT KNEE AND RIGHT INDEX FINGER FOUR TIMES A DAY NEEDED APPLY 5GRAMS TO RIGHT KNEE AND RIGHT INDEX FINGER FOUR TIMES A DAY NEEDED SOLD: 05/09/2019 [facility] 20 mg 05/08/2019 12:00:00 AM EST tablet 90 TAKE ONE TABLET BY MOUTH EVERY MORNING TAKE ONE TABLET BY MOUTH EVERY MORNING SOLD: 09/05/2019 [facility] 20 mg 05/08/2019 12:00:00 AM EST tablet 90 TAKE ONE TABLET BY MOUTH EVERY MORNING TAKE ONE TABLET BY MOUTH EVERY MORNING SOLD: 05/09/2019 [facility] 10 mEq 04/25/2019 12:00:00 AM EST tablet,ER particles/cry stals 180 TAKE ONE TABLET BY MOUTH TWICE A DAY TAKE ONE TABLET BY MOUTH TWICE A DAY SOLD: 04/25/2019 [facility] 20 mg 02/06/2019 12:00:00 AM EDT tablet 90 TAKE ONE TABLET BY MOUTH AT BEDTIME TAKE ONE TABLET BY MOUTH AT BEDTIME SOLD: 05/09/2019 [facility] Insurance Providers Payer name Policy type / Coverage type Policy ID Covered libertarian ID Covered libertarian's relationship to katz Policy Katz Plan Information [employer] [id number] SP [id number] [employer] O [id number] S [id number] [facility]-Health Maintenance Organization ( O) [id number] ANSI-Medicare Part B [id number] ANSI-Medicare Part B [id number] ANSI-Medicare Part B [id number] ANSI-Medicare Part B [id number] ANSI-Health Maintenance Organization ( O) [id number] [facility] [id number] SP [id number] ANSI-Medicare Part B [id number] [facility] ( O) [id number] ANSI-Medicare Part B [id number] ANSI-Health Maintenance Organization ( O) [id number] ANSI-Medicare Part B [id number] ANSI-Medicare Part B [id number] ANSI-Medicare Part B [id number] ANSI-Medicare Part B [id number] ANSI-Health Maintenance Organization ( O) [id number] ANSI-Health Maintenance Organization ( O) [id number] ANSI-Medicare Part B [id number] ANSI-Medicare Part B [id number] ANSI-Medicare Part B [id number] ANSI-Medicare Part B [id number] ANSI-Health Maintenance Organization ( O) [id number] ANSI-Medicare Part B [id number] ANSI-Medicare Part B [id number] ANSI-Health Maintenance Organization ( O) [id number] ANSI-Medicare Part B [id number] [facility]-Health Maintenance Organization ( O) [id number] ANSI-Medicare Part B [id number] ANSI-Medicare Part B [id number] ANSI-Health Maintenance Organization ( O) [id number] ANSI-Medicare Part B [id number] [employer]IONS [id number] SP [id number] ANSI-Medicare Part B [id number] ANSI-Medicare Part B [id number] ANSI-Medicare Part B [id number] ANSI-Medicare Part B [id number] ANSI-Medicare Part B [id number] ANSI-Medicare Part B [id number] ANSI-Medicare Part B [id number] ANSI-Medicare Part B [id number] ANSI-Medicare Part B [id number] ANSI-Medicare Part B [id number] ANSI-Medicare Part B [id number] ANSI-Medicare Part B [id number] ANSI-Medicare Part B [id number] ANSI-Medicare Part B [id number] ANSI-Medicare Part B [id number] ANSI-Medicare Part B [id number] MEDICAID [id number] SP [id number] LIBERIAN PROGRESSIVE [id number] SP [id number] MEDICARE [id number] SP [id number] A AMER PROG TODAYS OPTIONS G [id number] Self [id number] AMER PROG TODAYS OPTIONS G [id number] Self [id number] [facility] [id number] SP [id number] TODAYS OPTIONS/LIBERIAN O [id number] S [id number] MEDICARE [id number] SP [id number] A LIBERIAN PROGRESSIVE [id number] SP [id number] MEDICARE [id number] SP [id number] A TODAYS OPTIONS [id number] SP [id number] MEDICARE [id number] SP [id number] A MEDICARE COMPLETE [id number] SP [id number] MEDICARE COMPLETE [id number] SP [id number] MEDICARE COMPLETE [id number] SP [id number] Problems, Conditions, and Diagnoses Code Display Name Description Problem Type Effective Dates Data Source(s) I82.511 [id number] 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 Problem 03/14/2020 12:00:00 AM EST eCW1 ([facility]) L98.491 [id number] Superficial ulcer of skin Problem 02/16/2020 12:00:00 AM EDT eCW1 ([facility]) I73.9 [id number] PVD (peripheral vascular disease) Problem 09/08/2019 12:00:00 AM EDT eCW1 ([facility]) J30.89 [id number] Non-seasonal allergic rhinitis, unspecifi ed trigger Problem 09/08/2019 12:00:00 AM EDT eCW1 ([facility]) I73.9 [id number] PVD (peripheral vascular disease) Problem 09/08/2019 12:00:00 AM EDT eCW1 ([facility]) J30.89 [id number] Non-seasonal allergic rhinitis, unspecifi ed trigger Problem 09/08/2019 12:00:00 AM EDT eCW1 ([facility]) Surgeries/Procedures Procedure Description Date Indications Data Source(s) Office Visit, Est Pt., Level 3 FC 09/08/2019 12:00:00 AM EDT eCW1 ([facility]) Office Visit, Est Pt., Level 4 PC 09/08/2019 12:00:00 AM EDT eCW1 ([facility]) Results ID Date Data Source NT-PRO BNP 02/17/2020 08:58:05 AM EDT eCW1 ([facility]) Name Value Range Interpretation Code Description Data Nichole rce(s) Supporting Document(s) 760 NT-PRO BNP eCW1 ([facility]) ID Date Data Source MAGNESIUM LEVEL 02/17/2020 08:49:08 AM EDT eCW1 ([facility]) Name Value Range Interpretation Code Description Data Nichole rce(s) Supporting Document(s) 1.9 MAGNESIUM LEVEL eCW1 ([facility]) ID Date Data Source Comprehensive Metabolic Profile (CMP) 02/17/2020 08:49:03 AM EDT eCW1 ([facility]) Name Value Range Interpretation Code Description Data Nichole rce(s) Supporting Document(s) > 60.0 GLOMERULAR FILTRATION RATE eCW 1 ([facility]) 20 BLOOD UREA NITROGEN eCW1 ([facility]) 151 GLUCOSE, FASTING eCW1 ([facility]) 1.18 CREATININE FOR GFR eCW1 ([facility]) 101 CHLORIDE LEVEL eCW1 ([facility]) 141 SODIUM LEVEL eCW1 ([facility]) 35 CARBON DIOXIDE LEVEL eCW1 ([facility]) 4.6 POTASSIUM SERUM eCW1 ([facility]) 18 ALT/SGPT eCW1 ([facility]) 10 AST/SGOT eCW1 ([facility]) 9.1 CALCIUM LEVEL eCW1 ([facility]) 78 ALKALINE PHOSPHATASE eCW1 ([facility]) 3.4 ALBUMIN eCW1 ([facility]) 0.4 BILIRUBIN,TOTAL eCW1 ([facility]) 6.8 TOTAL PROTEIN eCW1 ([facility]) 1.0 ALBUMIN/GLOBULIN RATIO eCW1 [facility] Procedure Social History Code Duration Value Status Description Data Source(s ) Smoking 06/14/2020 12:00:00 AM EST Former Smoker completed Former Smoker eCW1 ([facility]) Smoking 06/02/2020 12:00:00 AM EST Former Smoker completed Former Smoker eCW1 ([facility]) Smoking 03/14/2020 12:00:00 AM EST Former Smoker completed Former Smoker eCW1 ([facility]) Smoking 03/14/2020 12:00:00 AM EST Former Smoker completed Former Smoker eCW1 ([facility]) Smoking 03/14/2020 12:00:00 AM EST Former Smoker completed Former Smoker eCW1 ([facility]) Smoking 03/14/2020 12:00:00 AM EST Former Smoker completed Former Smoker eCW1 ([facility]) Smoking 03/14/2020 12:00:00 AM EST Former Smoker completed Former Smoker eCW1 ([facility]) Smoking 03/14/2020 12:00:00 AM EST Former Smoker completed Former Smoker eCW1 ([facility]) Smoking 03/14/2020 12:00:00 AM EST Former Smoker completed Former Smoker eCW1 ([facility]) Smoking 03/14/2020 12:00:00 AM EST Former Smoker completed Former Smoker eCW1 ([facility]) Smoking 03/14/2020 12:00:00 AM EST Former Smoker completed Former Smoker eCW1 ([facility]) Smoking 03/14/2020 12:00:00 AM EST Former Smoker completed Former Smoker eCW1 ([facility]) Smoking 03/14/2020 12:00:00 AM EST Former Smoker completed Former Smoker eCW1 ([facility]) Smoking 03/03/2020 12:00:00 AM EST Former Smoker completed Former Smoker eCW1 ([facility]) Smoking 03/03/2020 12:00:00 AM EST Former Smoker completed Former Smoker eCW1 ([facility]) Smoking 03/03/2020 12:00:00 AM EST Former Smoker completed Former Smoker eCW1 ([facility]) Smoking 03/03/2020 12:00:00 AM EST Former Smoker completed Former Smoker eCW1 ([facility]) Smoking 03/03/2020 12:00:00 AM EST Former Smoker completed Former Smoker eCW1 ([facility]) Smoking 03/02/2020 12:00:00 AM EST Former Smoker completed Former Smoker eCW1 ([facility]) Smoking 02/16/2020 12:00:00 AM EDT Former Smoker completed Former Smoker eCW1 ([facility]) Smoking 02/16/2020 12:00:00 AM EDT Former Smoker completed Former Smoker eCW1 ([facility]) Smoking 02/16/2020 12:00:00 AM EDT Former Smoker completed Former Smoker eCW1 ([facility]) Smoking 09/08/2019 12:00:00 AM EDT Former Smoker completed Former Smoker eCW1 ([facility]) Smoking 09/08/2019 12:00:00 AM EDT Former Smoker completed Former Smoker eCW1 ([facility]) Smoking 09/08/2019 12:00:00 AM EDT Former Smoker completed Former Smoker eCW1 ([facility]) Smoking 09/08/2019 12:00:00 AM EDT Former Smoker completed Former Smoker eCW1 ([facility]) Vital Signs ID Date Data Source UNK Name Value Range Interpretation Code Description Data Source(s) Diastolic blood pressure 80 mm[Hg] 80 mm[Hg] eCW1 ([facility]) Systolic blood pressure 120 mm[Hg] 120 mm[Hg] e CW1 ([facility]) Body temperature 97.1 [degF] 97.1 [degF] eCW1 ( [facility]) Respiratory rate 20 /min 20 /min eCW1 ([facility]) Heart rate 119 /min 119 /min eCW1 ([facility]) Body mass index (BMI) [Ratio] 33.51 kg/m2 33.51 kg/m2 W1 ([facility]) Body height 73 [in_i] 73 [in_i] eCW1 ([facility]) Body weight 254 [lb_av] 254 [lb_av] eCW1 ([facility]) Diastolic blood pressure 82 mm[Hg] 82 mm[Hg] eCW1 ([facility]) Systolic blood pressure 138 mm[Hg] 138 mm[Hg] e CW1 ([facility]) Body temperature 96.8 [degF] 96.8 [degF] eCW1 ( [facility]) Respiratory rate 18 /min 18 /min eCW1 ([facility]) Heart rate 95 /min 95 /min eCW1 ([facility]) Body mass index (BMI) [Ratio] 34.22 kg/m2 34.22 kg/m2 W1 ([facility]) Body height 73 [in_i] 73 [in_i] eCW1 ([facility]) Body weight 259.4 [lb_av] 259.4 [lb_av] eCW1 [facility] Diastolic blood pressure 82 mm[Hg] 82 mm[Hg] eCW1 ([facility]) Systolic blood pressure 138 mm[Hg] 138 mm[Hg] e CW1 ([facility]) Body temperature 96.8 [degF] 96.8 [degF] eCW1 ( [facility]) Respiratory rate 18 /min 18 /min eCW1 ([facility]) Heart rate 95 /min 95 /min eCW1 ([facility]) Body mass index (BMI) [Ratio] 34.22 kg/m2 34.22 kg/m2 eCW1 ([facility]) Body height 73 [in_i] 73 [in_i] eCW1 ([facility]) Body weight 259.4 [lb_av] 259.4 [lb_av] eCW1 ([facility] Diastolic blood pressure 88 mm[Hg] 88 mm[Hg] eCW1 ([facility]) Systolic blood pressure 132 mm[Hg] 132 mm[Hg] e CW1 ([facility]) Body temperature 97.7 [degF] 97.7 [degF] eCW1 ( [facility]) Respiratory rate 22 /min 22 /min eCW1 ([facility]) Heart rate 96 /min 96 /min eCW1 ([facility]) Body mass index (BMI) [Ratio] 34.83 kg/m2 34.83 kg/m2 eCW1 ([facility]) Body height 73 [in_i] 73 [in_i] eCW1 ([facility]) Body weight 264 [lb_av] 264 [lb_av] eCW1 ([facility]) Diastolic blood pressure 80 mm[Hg] 80 mm[Hg] eCW1 ([facility]) Systolic blood pressure 138 mm[Hg] 138 mm[Hg] e CW1 ([facility]) Body temperature 97.4 [degF] 97.4 [degF] eCW1 ( [facility]) Respiratory rate 18 /min 18 /min eCW1 ([facility]) Heart rate 91 /min 91 /min eCW1 ([facility]) Body mass index (BMI) [Ratio] 34.30 kg/m2 34.30 kg/m2 eCW1 ([facility]) Body height 73 [in_i] 73 [in_i] eCW1 ([facility]) Body weight 260 [lb_av] 260 [lb_av] eCW1 ([facility]) Diastolic blood pressure 80 mm[Hg] 80 mm[Hg] eCW1 ([facility]) Systolic blood pressure 138 mm[Hg] 138 mm[Hg] e CW1 ([facility]) Body temperature 97.4 [degF] 97.4 [degF] eCW1 ( [facility]) Respiratory rate 18 /min 18 /min eCW1 ([facility]) Heart rate 91 /min 91 /min eCW1 ([facility]) Body mass index (BMI) [Ratio] 32.98 kg/m2 32.98 kg/m2 eCW1 ([facility]) Body height 73 [in_i] 73 [in_i] eCW1 ([facility]) Body weight 250 [lb_av] 250 [lb_av] eCW1 ([facility]) Diastolic blood pressure 78 mm[Hg] 78 mm[Hg] eCW1 ([facility]) Systolic blood pressure 122 mm[Hg] 122 mm[Hg] e CW1 ([facility]) Body temperature 97.4 [degF] 97.4 [degF] eCW1 ( [facility]) Respiratory rate 18 /min 18 /min eCW1 ([facility]) Heart rate 111 /min 111 /min eCW1 ([facility]) Body mass index (BMI) [Ratio] 33.11 kg/m2 33.11 kg/m2 W1 ([facility]) Body height 73 [in_us] 73 [in_us] eCW1 ([facility]) Body weight Measured 251.0 [lb_av] 251.0 [lb_av ] eCW1 ([facility]) Patient Treatment Plan of Care Planned Activity Planned Date Details Description Data Source (s) Tresiba FlexTouch 200 UNIT/ML 05/13/2020 12:00:00 AM EST eCW1 ([facility]) [place] 05/13/2020 12:00:00 AM EST e CW1 ([facility]) [employer] FlexTouch 200 UNIT/ML 05/13/2020 12:00:00 AM EST eCW1 ([facility]) [place] 05/13/2020 12:00:00 AM EST e CW1 ([facility]) [employer] FlexTouch 200 UNIT/ML 05/13/2020 12:00:00 AM EST eCW1 ([facility]) [place] 05/13/2020 12:00:00 AM EST e CW1 ([facility]) [employer] FlexTouch 200 UNIT/ML 05/13/2020 12:00:00 AM EST eCW1 ([facility]) [place] 05/13/2020 12:00:00 AM EST e CW1 ([facility]) [employer] FlexTouch 200 UNIT/ML 05/13/2020 12:00:00 AM EST eCW1 ([facility]) [employer] FlexTouch 200 UNIT/ML 05/13/2020 12:00:00 AM EST eCW1 ([facility]) [place] 05/13/2020 12:00:00 AM EST e CW1 ([facility]) torsemide 20 MG Oral Tablet 02/17/2020 12:00:00 AM EDT eCW1 ([facility]) torsemide 20 MG Oral Tablet 02/17/2020 12:00:00 AM EDT eCW1 ([facility]) torsemide 20 MG Oral Tablet 02/17/2020 12:00:00 AM EDT eCW1 ([facility]) torsemide 10 MG Oral Tablet 02/17/2020 12:00:00 AM EDT eCW1 ([facility]) torsemide 10 MG Oral Tablet 02/17/2020 12:00:00 AM EDT eCW1 ([facility]) torsemide 10 MG Oral Tablet 02/17/2020 12:00:00 AM EDT eCW1 ([facility]) MetFORMIN HCl ER 500 MG 02/03/2020 12:00:00 AM EDT eCW1 ([facility]) MetFORMIN HCl ER 500 MG 02/03/2020 12:00:00 AM EDT eCW1 ([facility]) MetFORMIN HCl ER 500 MG 02/03/2020 12:00:00 AM EDT eCW1 ([facility]) MetFORMIN HCl ER 500 MG 02/03/2020 12:00:00 AM EDT eCW1 ([facility]) [place] - 11/19/2019 12:00:00 AM EDT e CW1 ([facility]) [place] - 11/19/2019 12:00:00 AM EDT e CW1 ([facility]) [place] - 11/19/2019 12:00:00 AM EDT e CW1 ([facility]) sitagliptin 50 MG Oral Tablet [Januvia] 09/24/2019 12:00:00 AM EDT eCW1 ([facility]) sitagliptin 50 MG Oral Tablet [Januvia] 09/24/2019 12:00:00 AM EDT eCW1 ([facility]) sitagliptin 50 MG Oral Tablet [Januvia] 09/24/2019 12:00:00 AM EDT eCW1 ([facility]) sitagliptin 50 MG Oral Tablet [Januvia] 09/24/2019 12:00:00 AM EDT eCW1 ([facility]) sitagliptin 50 MG Oral Tablet [Januvia] 09/24/2019 12:00:00 AM EDT eCW1 ([facility]) Fluticasone Propionate 50 MCG/ACT 09/08/2019 12:00:00 AM EDT eCW1 ([facility]) Fluticasone Propionate 50 MCG/ACT 09/08/2019 12:00:00 AM EDT eCW1 ([facility]) Fluticasone Propionate 50 MCG/ACT 09/08/2019 12:00:00 AM EDT eCW1 ([facility]) Fluticasone Propionate 50 MCG/ACT 09/08/2019 12:00:00 AM EDT eCW1 ([facility]) Fluticasone Propionate 50 MCG/ACT 09/08/2019 12:00:00 AM EDT eCW1 ([facility])
--- OUTSIDE RECORDS SUMMARY | 2020-06-22 04:12 | CCD ---
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 Name Role Phone Landen Dyson Unavailable PROBLEMS Type Condition ICD9-CM Code [id number] Code Onset Dates Condition S tatus SNOMED Code Notes Problem Vitamin B12 deficiency E53.8 Active 763002597 Problem CKD (chronic kidney disease) stage 3, GFR 30-59 ml/min N18.3 Active 626625381 Problem GERD (gastroesophageal reflux disease) K21.9 A ctive 789384606 Problem Hyperlipidemia E78.5 Active 85358329 Problem Overweight E66.3 Active 450559881 Problem Vitamin D deficiency E55.9 Active 45206454 Problem 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 Active 02634488 9 Problem Primary osteoarthritis of both knees M17.0 Act jasen 840276338 Problem 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.8 Active 491971201 Problem Mild dementia F03.90 Active 026416410765141 Problem Ataxia R27.0 Active 47321626 Problem Non-seasonal allergic rhinitis, unspecified trigger J30.89 Active 11460712 Problem Gout M10.9 Active 54418015 Problem Essential (primary) hypertension I10 Active 78408316 Problem 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.511 Active 526386312195080 Problem Prostate cancer C61 Active 424188917 Problem Chronic diastolic (congestive) heart failure I50.3 2 Active 478793350 Problem DJD (degenerative joint disease), 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 Active 834340699 Problem Seizure disorder G40.909 Active 307314464 Problem 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 Active 611629586 Problem Iron deficiency anemia, unspecified iron deficiency an emia type D50.9 Active 30139278 Problem PVD (peripheral vascular disease) I73.9 Active 183776700 ALLERGIES Allergen (clinical drug ingredient) Drug/Non Drug Allergy do cumented on EMR Reaction Allergy Type Onset Date Status evironmental watery eyes,sneezing Non Drug Allergy Active ENCOUNTERS from 1933 to 2020-04-27 Encounter Location Date Provider Diagnosis [address] [address] Feb, 020 Landen Dyson DJD (degenerative joint disease), 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 ; PVD (peripheral vascular disease) I73.9 ; 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.511 ; Chronic diastolic (congestive) heart failure I50.32 ; 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.8 ; Non-seasonal allergic rhinitis, unspecified trigger J30.89 ; Ataxia R27.0 ; Prostate cancer C61 ; Hyperlipidemia E78.5 ; Essential (primary) hypertension I10 ; Iron deficiency anemia, unspecified iron deficiency anemia type D50.9 ; Skin lesion L98.9 ; Mild dementia F03.90 ; Seizure disorder G40.909 ; 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 Sexual [...] FOR REFERRAL No Information VITAL SIGNS Weight 259.4 lbs Feb, Height 73 in Feb, BMI 34.22 kg/m2 Feb, Heart Rate 95 /min Feb, Respiratory Rate 18 /min Feb, Temperature 96.8 degrees Fahrenheit Feb, Oximetry 98% Feb, Blood pressure systolic 138 mm Hg Feb, Blood pressure diastolic 82 mm Hg Feb, MEDICATIONS Medication SIG (Take, Route, Frequency, Duration) [...] as directed R60.9 Daily for 99 mo [facility] Apr, Active MetFORMIN HCl ER 500 [...] Information RESULTS No Results REASON FOR VISIT [facility] ER Follow up , [facility] ER Summary in [facility] MEDICAL (GENERAL) HISTORY Type Description Date Medical [...] Notes Treatment Notes Treatm ent Clinical Notes Feb, DJD (degenerative joint disease), lumbar (ICD-10 - M47.816) Contingency: LESI 03/14/20 repeat MRI tc LESI given severe LE radic pain (now amenable to try) 10/2017 weaned self off HC 12/08/16 SS started HC 5 1/2 tab BID (to use instead of any remaining tramadol) 09/2014 i changed Flexeril 10 TID prn to tizanidine 2 BID prn Patient feels tramadol worked better than Tylenol #3 Feb, PVD (peripheral vascular disease) (ICD-10 - I73. 9) R>L LE dusky R>L foot c persistent "cold" sensation s ulceration, no classic claudication sx, BUT very INACTIVE 2 spinal stenosis rpain 09/08/19 check arterial US-never done by patient; therefore, 03/15/20 reordered Feb, 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 (ICD-10 - I82.511) No recurrent sx on lifelong apix favor RLE DVT 2 sedentary lifestyle +/- prostate CA 03/12/20 RLE DVT US old NO DVT mid-distal R fem v (and moderate popliteal cyst 4x 3 cm) 12/01/19 RLE DVT US c non and occulsive DVT in mid-distal femoral v; therefore, asa 81/clopid 75 changed to apix 5 BID/ asa 81 Feb, Chronic diastolic (congestive) heart failure (IC D-10 - I50.32) Continue BRENDA diet/1500 cc FR 03/02/20 201/1.1, 4, BNP 392 on torse 20 qAM, K 10 BID 02/16/20 BNP 760; therefore torse 20 qAM to 20 BID x 7D, then back to 20 qAM 09/02/19 4.3, 1.1 09/2018 4.7, cr 1.3 on torse 20 qAM, K 10 BID 05/02/18 given mild decompesation, fur 60 to tors 20 qAM 03/2018 4.4, 2.3, 1.1 on K 10 BID 11/2017 4.3, 1.1 03/2017 4.3, 2.1, cr 1.1 on K 10 BID c mild decompensation; therefore, stressed BRENDA diet and increased fur 40 to 60 qAM 12/2016 3.9 c stable cr 1.2 on fur 40, K 10 BID and capto 12.5 BID 01/2016 given mild decompensation, started BRENDA, 1500 FR and Lasix 40 BID x 3D then return to 40 QD Patient defers stress testing 06/2013 advised daily AM home dry weights, c/b if >2 pound increase 06/2013 HCTZ 25 qd changed to Lasix 40 qd and K 10 BID during hospitalization for CHF Feb, Diabetes mellitus type 2 with complications (ICD -10 - E11.8) Contingency: basal insulin, decreasing met/holding glim Continue ADA diet/weight loss ACEI as per [...] A1c up to 6.4 04/2016 LES/creatinin 38 Feb, Non-seasonal allergic rhinit is, unspecified trigger (ICD-10 - J30.89) Stable on FP 2qAM prn main sx 2 phlegm production, worse qAM Contingency: jaison 09/08/19 + FP 2 qAM Feb, Ataxia (ICD-10 - R27.0) No falls since using RW defers gait-retraining favor 2 peripheral neuropathy 2 lumbar radic/DM, PVD and deconditioning worse ataxia since 10/2016 CVA Feb, Prostate cancer (ICD-10 - C61) Patient refuses any further workup/rx follows with Dr. Gutierrez-AL 07/31/16 who recommended 3M which patient NS and REFUSES fu and repeat CT AP/WBBS 12/07/19 18.1 09/02/19 22 03/2018 15.3 11/2017 13.5 03/2017 11.1 10/2016 PSA 12 05/2016 CT AP s/c NAD/WBBS c new uptake at T8 and T10-06/2016 MRI thoracic spine c bulges s cord compression/mets/fracture; therefore, Dr. Henriquez referred patient to Ortho 04/2016 10.1; therefore, referred back to Dr. Henriquez 07/2015 8.5 01/2015 8.1-drawn by Yulia, who because of decline deferred HT for now c recheck of PSA 07/2015 9.7 05/27/[address] to [address] Gutierrez for hormonal therapy which patient deferred 03/2014 8.1, therefore referred back to Dr. Bender 02/11/14 given there no evidence of distant metastases with a biological recurrence, we d/w salvage rx and pateint is favoring XRT with Dr. Bender. We referred back to him. 12/2013 given patient meets critieria for biological recurrence by [place] criteria (with a eula in 09/2001), patient changed his mind and consented to repeat WBSC, CT A/P s/c in 12/2013 which was negative x for "rare nonspecific pelvic LN". 11/2013 6.6 03/2013 5.4 12/2011 5.6 04/2011 5.2 04/2010 PSA 4.2 09/2001 1.8 16 Feb, 2020 Hyperlipidemia (ICD-10 - E78.5) 09/02/19 182/49/134 off rosuva 20 for unknown reason; therefore, restarted 11/2017 69/51/117, 128 03/2017 81/57/80, 74, on rosuva 20 09/02/19 normal LFTs 09/02/19 2.9, 1.0 03/2018 2.1, 1.1 09/2014 2.0 07/2012 1.01 February 2009 TSH 0.8 Lipitor caused myalgia, Zocor 20 qd ineffective Feb, Essential (primary) hypertension (ICD-10 - I10) Good control on torse 20 qAM as per CHF 09/08/19 patient stopped benaz 20 QHS given symptomatic hypotension c SBP to 80s K/Mg as per CHF 06/2013 EKG NSR 91 bpm c frequent PVCs, low voltage, inferior repolarization abnormalities Feb, Iron deficiency anemia, unsp ecified iron deficiency anemia type (ICD-10 - D50.9) caution on chronic clopid Contingency: Cologuard patient refuses repeat endoscopy 09/2018 15.1, 98, r35/1.3 s supplement 03/2018 14.9, 98, r36; therefore, held Fe QOD 11/2017 50%, 40 on 65 QD 03/2017 12.2, 85, 20%, 9; therefore, FeSO4 325 QOD started c recheck BW in 5W 09/2016 12.9 04/2016 13.4, 86 09/2014 hgb stable t at 14.6 Feb, Skin lesion (ICD-10 - L98.9) Patient refuses excision-assumes risk of progression to point of being non- operable 02/12/17 measuring 10 x 7 mm (was actually scheduled today to have excised) 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 04/10/17 Dr. Ramirez stopped leve-did not feel patient had seizure 04/08/2017 leve 15 on 500 BID 10/2015 leve 500 BID started p seizure p CVA Feb, Left pontine CVA (ICD-10 - I63.50) No recurrent symptoms on asa/apix 10/2016 L punctate pontine CVA; therefore, asa 325 changed to clopid 75 Feb, Gout (ICD-10 - M10.9) No recurrent flares favor flares 2 hyperglycemia, diuretic use and poor diet 09/02/19 5.7 09/2018 4.1 03/2018 7.5; therefore, restarted 300 (had stopped for unknown reason) 12/2016 UA 7.6 on allo 100; therefore, increased to 300 09/10/16 changed colchcine to prednisone 5 QD x 10D, then 2.5 QD (colchicine is too expensive per patient) x 10D c allo 100 QD 08/2016 2nd flare L mid foot p blunt trauma-hospitalized at [facility] 6.6, co lchicine 0.6 BID started c improvement (but also rxed as cellulitis as per c ceftaroline/doxy 02/2016 first flare L mid foot-resolved on own p ~4W Feb, Primary osteoarthritis of both knees (ICD-10 - M 17.0) Stable on Voltaren QID prn Contingency: injection (04/15/17 patient scheduled for B knee injection but then deferred given minimal pain) Feb, Esophageal diverticulum (ICD-10 - Q39.6) Patient is asymptomatic if eats slowly Contingency: EGD if any irregularity Feb, CKD (chronic kidney disease) stage 3, GFR 30-59 ml/min (ICD-10 - N18.3) Continue off all po NSAIDs K/Mg as per CHF PTH as per vitamin D hgb as per Fe Feb, Vitamin B12 deficiency (ICD-10 - E53.8) hemoglobin as per CKD 11/2017 1024 on 500 03/2017 1415 on 1000; therefore, decreased to 500 07/2015 897 03/2014 1146 12/2011 B12 305 therfore 500 increased to 1000 qd 03/2017 894 12/2011 RBC folate 496 07/2015 23%, 9 s supplement Feb, Vitamin D deficiency (ICD-10 - E55.9) 09/2018 18, 8.6, 136; therefore, encouraged compliance 03/2018 15, 8.7, PTH 139; therefore, +D3 5K Feb, GERD (gastroesophageal reflux disease) (ICD-10 - K21.9) Stable on omep 40 qAM Feb, Overweight (ICD-10 - E66.3) Encouraged weight loss PLAN OF TREATMENT Medication Medication Name Sig [...] 1 tablet Orally Daily for 90 day(s) Treatment Notes Assessment Notes Clinical Notes Seizure disorder No seizure activity since 10/2016Strongly encouraged NOT use to any remaining tramadol and NO driving!04/10/17 Dr. Ramirez stopped leve-did not feel patient had rzioqcn9404/08/2017 leve 15 on 500 BID10/2015 leve 500 BID started p seizure p CVA DJD (degenerative joint disease), lumbar Contingency: LESI105/14/19 repeat MRI tc LESI given severe LE radic pain (now amenable to try)10/2017 weaned self off HC12/08/16 SS started HC 5 1/2 tab BID (to use instead of any remaining tramadol)09/2014 i changed Flexeril 10 TID prn to tizanidine 2 BID prnPatient feels tramadol worked better than Tylenol #3 Mild dementia Patient/family defer treatment at this point12/2016 PHN consult re medication set-up PVD (peripheral vascular disease) R>L LE dusky R>L foot c persistent "cold" sensation s ulceration, no classic claudication sx, BUT very INACTIVE 2 spinal stenosis rpain09/08/19 check arterial US-never done by patient; therefore, 02/27 11/15 reordered Gout No recurrent flaresf avor flares 2 hyperglycemia, diuretic use and poor diet09/02/19 5. 4.112 7.5; therefore, restarted 300 (had stopped for unknown reason)12/2016 UA 7.6 on allo 100; therefore, increased to changed colchcine to prednisone 5 QD x 10D, then 2.5 QD (colchicine is too expensive per patient) x 10D c allo 100 QD08/2016 2nd flare L mid foot p blunt trauma-hospitalized at [facility] 6.6, colchicine 0.6 BID started c improvement (but also rxed as cellulitis as per MH c ceftaroline/doxy104/2015 first flare L mid foot-resolved on own p ~4W 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 No recurrent sx on lifelong apixfavor RLE DVT 2 sedentary lifestyle +/- prostate CA105/12/19 RLE DVT US old NO DVT mid-distal R fem v (and moderate popliteal cyst 4x 3 cm)12/01/19 RLE DVT US c non and occulsive DVT in mid-distal femoral v; therefore, asa 81/clopid 75 changed to apix 5 BID/ asa 81 Left pontine CVA No recurrent symptom s on asa/api L punctate pontine CVA; therefore, asa 325 changed to clopid 75 Chronic diastolic (congestive) heart failure Continue BRENDA diet/1500 cc FR03/02/20 201/1.1, 4, BNP 392 on torse 20 qAM, K 10 BID02/16/20 BNP 760; therefore torse 20 qAM to 20 BID x 7D, then back to 20 qAM09/02/19 4.3, 1. 4.7, cr 1.3 on torse 20 qAM, K 10 BID05/02/18 given mild decompesation, fur 60 to tors 20 qAM105/2017 4.4, 2.3, 1.1 on K 10 BID11/2017 4.3, 1. 4.3, 2.1, cr 1.1 on K 10 BID c mild decompensation; therefore, stressed BRENDA diet and increased fur 40 to 60 qAM12/2016 3.9 c stable cr 1.2 on fur 40, K 10 BID and capto 12.5 BID01/2016 given mild decompensation, started BRENDA, 1500 FR and Lasix 40 BID x 3D then return to 40 QDPatient defers stress testing06/2013 advised daily AM home dry weights, c/b if >2 pound increase06/2013 HCTZ 25 qd changed to Lasix 40 qd and K 10 BID during hospitalization for CHF Esophageal diverticulum Patient is asymp tomatic if eats slowlyContingency: EGD if any irregularity Diabetes mellitus type 2 with complications Contingency: basal insulin, decreasing met/holding glimContinue ADA diet/weight lossACEI as per mzdifcmfutkz40/16/20 met 500 QD to 500 BID given AC BG 200-220 c BG cb in 02/03/20 recommended basal insulin, but px preferred to try met 500 AC dinner09/24/19 +lester 50 to glim 4 BID09/01/19 7.5 and gave new Verio03/2018 7.7; therefore, increased 1 BID to 2 BID11/2017 6.812 8.7; therefore, gave Verio Flex and + glim 1 AC BID04/2016 7. 6. 6.312/2013 6.06/2013 5. 6. 6.7 therefore ADA diet started04/2011 6.0July 2010 A1c up to 6. LES/creatinin 38 Primary osteoarthritis of both knees Sta ble on Voltaren QID prnContingency: injection (04/15/17 patient scheduled for B knee injection but then deferred given minimal pain) Non-seasonal allergic rhinitis, unspecified trigger Stable on FP 2qAM prnmain sx 2 phlegm production, worse qAMContingency: lor09/08/19 + FP 2 qAM Vitamin B12 deficiency hemoglobin as per CKD11/2017 1024 on 2364503/2017 1415 on 1000; therefore, decreased to 5004 16549/2013 64084/2011 B12 305 therfore 500 increased to 1000 qd03/2017 8949/2011 RBC folate 4964 23%, 9 s supplement Ataxia No falls since using RWdefers gait-retrainingfavor 2 peripheral neuropathy 2 lumbar radic/DM, PVD and deconditioningworse ataxia since 10/2016 CVA CKD (chronic kidney disease) stage 3, GFR 30-59 ml/min Continue off all po NSAIDsK/Mg as per CHFPTH as per vitamin Dhgb as per Fe Vitamin D deficiency 09/2018 18, 8.6, 136 ; therefore, encouraged /2018 15, 8.7, PTH 139; therefore, +D3 5K Skin lesion Patient refuses exci sebas-assumes risk of progression to point of being non-erhfnwcs23/17/17 measuring 10 x 7 mm (was actually scheduled today to have excised)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 13.4, 866/2015 hgb stable t at 14.6 GERD (gastroesophageal reflux disease) S table on omep 40 qAM Prostate cancer Patient refuses any further workup/rxfollows with Dr. Barbosa 07/31/16 who recommended 3M which patient NS and REFUSES fu and repeat CT AP/WBBS12/07/19 18.15/10/16 2212 15. 13.512 11. PSA 122/2017 CT AP s/c NAD/WBBS c new uptake at T8 and T10-06/2016 MRI thoracic spine c bulges s cord compression/mets/fracture; therefore, Dr. Henriquez referred patient to Ortho04/2016 10.1; therefore, referred back to 8. 8.1-drawn by Yulia, who because of decline deferred HT for now c recheck of PSA 9.71/ Yulia referred to Dr. Gutierrez for hormonal therapy which patient /2014 8.1, therefore referred back to Dr. Bender02/11/14 given there no evidence of distant metastases with a biological recurrence, we d/w salvage rx and pateint is favoring XRT with Dr. Bender. We referred back to him.12/2013 given patient meets critieria for biological recurrence by [place] criteria (with a eula in 09/2001), patient changed his mind and consented to repeat WBSC, CT A/P s/c in 12/2013 which was negative x for "rare nonspecific pelvic LN".11/2013 6.612/2012 5. 5. 5. PSA 4. 1.8 Hyperlipidemia 09/02/19 182/49/134 of f rosuva 20 for unknown reason; therefore, restarted11/2017 69/51/117, 1135003/2017 81/57/80, 74, on rosuva normal LFTs09/02/19 2.9, 1.012/2017 2.1, 1. 2.07/2012 1.6October 2008 TSH 0.8Lipitor caused myalgia, Zocor 20 qd ineffective Essential (primary) hypertension Good co ntrol on torse 20 qAM as per CHF09/08/19 patient stopped benaz 20 QHS given symptomatic hypotension c SBP to 80sK/Mg as per CHF06/2013 EKG NSR 91 bpm c frequent PVCs, low voltage, inferior repolarization abnormalities Treatment Notes Test Name Order Date [facility] MRI Lumbar w/o contrast (cpt 33433) 2020-04-27 Future Test Test Name Order Date HEMOGLOBIN A1c 20200411 PSA MONITOR (HX PROSTATE CA/ABNORMAL PSA) 20200411 Comprehensive Metabolic Profile (CMP) 20200411 NT-PRO BNP [id number] MAGNESIUM LEVEL [id number] URIC ACID 87438141 VITAMIN B12 LEVEL [id number] Next Appt Details 30 min 4M JACQUES Dyson in 6W Reason: Provider Name:Landen Dyson, 2020-07-11 0 3:15:00 PM, [address] [place], [address], Insurance Providers Payer Name Payer Address Payer Phone Insured Name Patient Relati onship to Insured Coverage Start Date Coverage End Date [facility] [address] [address] [facility] [phone] INA SORIANO
--- OUTSIDE RECORDS SUMMARY | 2020-06-22 04:12 | CCD ---
Author Author [facility] Organization [facility] Address Unknown Phone Unavailable Care Team Providers Care Real Estate Management Specialist Name Role Phone Landen Dyson Unavailable PROBLEMS Type Condition ICD9-CM Code QSW34-OR Code Onset Dates Condition S tatus SNOMED Code Notes Problem Vitamin B12 deficiency E53.8 Active 024534890 Problem CKD (chronic kidney disease) stage 3, GFR 30-59 ml/min N18.3 Active 040062991 Problem GERD (gastroesophageal reflux disease) K21.9 A ctive 897422354 Problem Hyperlipidemia E78.5 Active 22504883 Problem Overweight E66.3 Active 509194805 Problem Vitamin D deficiency E55.9 Active 89183821 Problem 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 Active 20311817 9 Problem Primary osteoarthritis of both knees M17.0 Act jasen 492338242 Problem 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.8 Active 900733077 Problem Mild dementia F03.90 Active 442903807439214 Problem Ataxia R27.0 Active 45896108 Problem Non-seasonal allergic rhinitis, unspecified trigger J30.89 Active 91574859 Problem Gout M10.9 Active 82490665 Problem Essential (primary) hypertension I10 Active 88830414 Problem 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.511 Active 052924467506979 Problem Prostate cancer C61 Active 777242999 Problem Chronic diastolic (congestive) heart failure I50.3 2 Active 043483975 Problem DJD (degenerative joint disease), 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 Active 547325163 Problem Seizure disorder G40.909 Active 318537855 Problem 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 Active 942191721 Problem Iron deficiency anemia, unspecified iron deficiency an emia type D50.9 Active 53205491 Problem PVD (peripheral vascular disease) I73.9 Active 154162270 ALLERGIES Allergen (clinical drug ingredient) Drug/Non Drug Allergy do cumented on EMR Reaction Allergy Type Onset Date Status evironmental watery eyes,sneezing Non Drug Allergy Active ENCOUNTERS from 1935 to 2020-04-16 Encounter Location Date Provider Diagnosis [address] [address] Mar, 020 Landen Dyson IMMUNIZATIONS Vaccine Route [...] Language: Question Answer Notes Languages spoken: Kyrgyz Religious: Question Answer Notes Religious No zoroastrian beliefs that would impact health care. Sexual [...] Once a day for 30 day(s) Active Knee Compression Sleeve/L/XL 1 as directed R60.9 Daily for 99 mo [facility] Apr, Active Allopurinol 300 MG 1 tablet Orally Once a day for 90 Active Apixaban 5 MG 1 tab Orally bid Activ e Fluticasone Propionate 50 MCG/ACT 2 sprays in each nos tril Nasally every morning for 90 day(s) Active Potassium Chloride 10 MEQ 1 tablet Orally Twice a day for 90 Active Cholecalciferol 5000 [...] Once a day for 90 day(s) Active Torsemide 20 MG 1 tablet Orally every morning for 90 day(s) Jan, Active Sitagliptin Phosphate 50 MG 1 tablet Orally every morning for 90 day( s) Active PROCEDURES No Information RESULTS No Results REASON FOR VISIT questions about her dad MEDICAL (GENERAL) HISTORY Type Description Date Medical [...] Date Stop Date Torsemide 20 MG 1 tablet Orally every morning for 90 day(s) [address] Omeprazole 40 MG 1 capsule Orally Once [...] Provider Name:Landen Dyson, 2020-07-11 0 3:15:00 PM, [address] [place] [address], [address], Insurance Providers Payer Name Payer Address Payer Phone Insured Name Patient Relati onship to Insured Coverage Start Date Coverage End Date [facility] [employer] [facility] [address] [address] [facility] [phone] INA SORIANO V self
[2020-06-22 04:45] LABS: BASO % 0.4 % (0.0-1.0); EOS # 0.6 10^3/uL (0.0-0.5); EOS % 5.8 % (0.0-3.0); HEMATOCRIT 47.8 % (42.0-52.0); HEMOGLOBIN 14.9 g/dl (13.5-17.5); MEAN CORPUSCULAR HEMOGLOBIN 30.7 pg (27.0-33.0); MEAN CORPUSCULAR HGB CONC 31.2 g/dl (32.0-36.5); MEAN CORPUSCULAR VOLUME 98.6 fl (80.0-96.0); MONO # 0.8 10^3/uL (0.0-0.8); MONO % 7.8 % (2.0-8.0); NEUTROPHILS # 6.4 10^3/uL (1.5-8.5); NEUTROPHILS % 65.8 % (36.0-66.0); PLATELET COUNT, AUTOMATED 251 10^3/uL (150-450); RED BLOOD COUNT 4.85 10^6/uL (4.30-6.10); WHITE BLOOD COUNT 9.8 10^3/uL (4.0-10.0)
--- NOTE | 2020-06-22 05:00 | REPVR ---
PROCEDURE INFORMATION: Exam: CT Head Without Contrast Exam date and time: 06/22/2020 4:27 AM Age: 85 years old Clinical indication: Altered mental status/memory loss; Confusion or disorientation; Additional info: CVA TECHNIQUE: Imaging protocol: Computed tomography of the head without contrast. Radiation optimization: All CT scans at this facility use at least one of these dose optimization techniques: automated exposure control; mA and/or kV adjustment per patient size (includes targeted exams where dose is matched to clinical indication); or iterative reconstruction. COMPARISON: 1. CT Head without contrast 11/07/2016 10:32 AM 2. MRI-Brain without Contrast 11/07/2016 1:40:31 PM FINDINGS: Brain: There is stable mild, diffuse parenchymal volume loss. There is heterogeneity of the white matter attenuation, most consistent with moderate chronic white matter ischemic changes, similar to the prior exams. A low-attenuation focus in the left basal ganglia is unchanged, and likely a chronic lacunar infarct. The cortical/white matter interfaces are preserved throughout the brain. There is no evidence of intracranial hemorrhage. Cerebral ventricles: The ventricular system demonstrates mild diffuse compensatory enlargement. Bones/joints: No acute fractures of the skull are identified. Paranasal sinuses: The visualized paranasal sinuses are clear. Mastoid air cells: The mastoid air cells are clear. Vasculature: Atherosclerotic calcifications are seen in the cerebral arteries at the skull base. Soft tissues: The soft tissues appear unremarkable. IMPRESSION: 1. Age-appropriate, diffuse parenchymal volume loss, similar to the prior exam. 2. Left basal ganglia chronic lacunar infarct and low-attenuation in the white matter, likely due to chronic small vessel ischemic disease, and similar to the prior exams. 3. No evidence of acute infarct, hemorrhage, or mass lesion. Electronically signed by: Claire Baez On 06/22/2020 05:00:51 AM
--- OUTSIDE RECORDS SUMMARY | 2020-06-22 05:06 | CCD ---
Author Author [facility] Organization [facility] Address Unknown Phone Unavailable Support Name Relationship Address Phone [place] [address] DESRUIO[address]CAR Next Of Kin [address] [place] [address] RE Next Of Kin Unknown Unavailable DESORMO EXCAVATING Next Of Kin [address] [place] [address] DESORMO, [place] [address] DIMASOASHANTIDA Next Of Kin [address] [place] [address] Desormo, Pedrito ECON [address] [place] [address] Unavailable Desormo, [place] [address] Unavailable Re-disclosure Warning The records that you [...] is protected by Article 27-F of the [facility] Public Health law. If you continue you may have access to information: Regarding HIV / AIDS; Provided by facilities licensed or operated by the [facility] Office of Mental Health; or Provided by the [facility] Office for People With Developmental Disabilities. If such information is present, then the following [facility] mandated warning applies: This information has been [...] law may result in a fine or halfway sentence or both. A general authorization for the release of medical or other information is NOT sufficient authorization for further disc losure. Allergies and Adverse Reactions Type Description Substance Reaction Status Data Source(s ) evironmental evironmental evironmental watery eyes,sneezing Active eCW1 ([facility]) Encounters Encounter Providers Location Date Indications Data Source(s ) Unknown [address] [facility] [address] 06/13/2020 12:00:00 AM EST eCW1 ([facility]) Outpatient [address] [facility] [address] 06/02/2020 12:00:00 AM EST eCW1 ([facility]) Unknown [address] [facility] [address] 05/26/2020 12:00:00 AM EST eCW1 ([facility]) Unknown [address] [facility] [address] 05/26/2020 12:00:00 AM EST eCW1 ([facility]) Unknown [address] [facility] [address] 05/17/2020 12:00:00 AM EST eCW1 ([facility]) Unknown [address] [facility] [place] [address] 05/16/2020 12:00:00 AM EST eCW1 ([facility]) Unknown [address] [facility] [address] 05/12/2020 12:00:00 AM EST eCW1 ([facility]) Unknown [address] [facility] [address] 05/12/2020 12:00:00 AM EST eCW1 ([facility]) [place] [address] [facility] [address] 04/27/2020 12:00:00 AM EST eCW1 ([facility]) Unknown [address] [facility] [address] 04/12/2020 12:00:00 AM EST eCW1 ([facility]) Unknown [address] [facility] [address] 03/17/2020 12:00:00 AM EST eCW1 ([facility]) Outpatient [address] [facility] [address] 03/14/2020 12:00:00 AM EST eCW1 ([facility]) Unknown [address] [facility] [address] 03/11/2020 12:00:00 AM EST eCW1 ([facility]) Unknown [address] [facility] [address] 03/08/2020 12:00:00 AM EST eCW1 ([facility]) Unknown [address] [facility] [address] 03/03/2020 12:00:00 AM EST eCW1 ([facility]) Unknown [address] [facility] [address] 03/03/2020 12:00:00 AM EST eCW1 ([facility]) Office Visit, Est Pt., Level 3 PC [address] [place] [address] 03/02/2020 12:00:00 AM EST eCW1 ([facility]) Unknown [address] [facility] [address] 02/29/2020 12:00:00 AM EST eCW1 ([facility]) [facility] [place] [address] [facility] [address] 02/26/2020 12:00:00 AM EDT eCW1 ([facility]) Unknown [address] [facility] [address] 02/25/2020 12:00:00 AM EDT eCW1 ([facility]) Office Visit, Est Pt., Level 3 PC [address] [place] [address] 02/16/2020 12:00:00 AM EDT eCW1 ([facility]) Unknown [address] [facility] [address] 02/03/2020 12:00:00 AM EDT eCW1 ([facility]) Unknown [address] [facility] [address] 11/19/2019 12:00:00 AM EDT eCW1 ([facility]) Unknown [address] [facility] [address] 11/18/2019 12:00:00 AM EDT eCW1 ([facility]) Unknown [address] [facility] [address] 10/05/2019 12:00:00 AM EDT eCW1 ([facility]) [facility] [address] [facility] [address] 09/24/2019 12:00:00 AM EDT eCW1 ([facility]) [facility] [address] [facility] [address] 09/16/2019 12:00:00 AM EDT eCW1 ([facility]) [facility] [address] [facility] [address] 09/08/2019 12:00:00 AM EDT eCW1 ([facility]) [facility] [address] [facility] [address] 07/23/2019 12:00:00 AM EDT eCW1 ([facility]) [facility] [address] [facility] [address] 07/08/2019 12:00:00 AM EDT eCW1 ([facility]) [address] [address] 07/08/2019 12:00:00 AM EDT eCW1 ([facility]) [address] [address] 06/24/2019 12:00:00 AM EST eCW1 ([facility]) [address] [address] 06/15/2019 12:00:00 AM EST eCW1 ([facility]) [address] [address] 05/28/2019 12:00:00 AM EST eCW1 ([facility]) [address] [address] 05/08/2019 12:00:00 AM EST eCW1 ([facility]) [address] [address] 05/07/2019 12:00:00 AM EST eCW1 ([facility]) [address] [address] 04/24/2019 12:00:00 AM EST eCW1 ([facility]) Medications Medication Brand Name Start Date Product [...] AT BEDTIME SOLD: 05/17/2020 [facility] [place] UNK 05/13/2020 12:00:00 AM EST active [place] eCW1 ([facility]) Tresiba FlexTouch 200 UNIT/ML Tresiba FlexTouch 200 UNIT/ML 05/13/2020 12:00:00 AM EST active Tresiba FlexTouch 200 UNIT/ML eCW1 ([facility]) Tresiba FlexTouch 200 UNIT/ML Tresiba FlexTouch 200 UNIT/ML 05/13/2020 12:00:00 AM EST active Tresiba FlexTouch 200 UNIT/ML eCW1 ([facility]) Tresiba FlexTouch 200 UNIT/ML Tresiba FlexTouch 200 UNIT/ML 05/13/2020 12:00:00 AM EST active Tresiba FlexTouch 200 UNIT/ML eCW1 ([facility]) 31 gauge x 3/16" 05/13/2020 12:00:00 AM EST needle 30 USE DIRECTED ONCE DAILY USE DIRECTED ONCE DAILY SOLD: 06/16/2020 [facility] [place] UNK 05/13/2020 12:00:00 AM EST active [place] eCW1 ([facility]) Tresiba FlexTouch 200 UNIT/ML Tresiba FlexTouch 200 UNIT/ML 05/13/2020 12:00:00 AM EST active Tresiba FlexTouch 200 UNIT/ML eCW1 ([facility]) [place] UNK 05/13/2020 12:00:00 AM EST active [place] eCW1 ([facility]) [place] UNK 05/13/2020 12:00:00 AM EST active [place] eCW1 ([facility]) [place] UNK 05/13/2020 12:00:00 AM EST active [place] eCW1 ([facility]) [place] UNK 05/13/2020 12:00:00 AM EST active [place] eCW1 ([facility]) Tresiba FlexTouch 200 UNIT/ML Tresiba FlexTouch 200 UNIT/ML 05/13/2020 12:00:00 AM EST active Tresiba FlexTouch 200 UNIT/ML eCW1 ([facility]) [place] UNK 05/13/2020 12:00:00 AM EST active [place] eCW1 ([facility]) Tresiba FlexTouch 200 UNIT/ML Tresiba FlexTouch 200 UNIT/ML 05/13/2020 12:00:00 AM EST active Tresiba FlexTouch 200 UNIT/ML eCW1 ([facility]) Tresiba FlexTouch 200 UNIT/ML Tresiba FlexTouch 200 UNIT/ML 05/13/2020 12:00:00 AM EST active Tresiba FlexTouch 200 UNIT/ML eCW1 ([facility]) 31 gauge x 3/16" 05/13/2020 12:00:00 AM [...] {tablet} active Torsemide 2 0 MG eCW1 ([facility]) torsemide 10 MG Oral Tablet Torsemide 10 MG Torsemide 10 MG 02/17/2020 12:00:00 AM EDT 1.0 {tablet} active Torsemide 1 0 MG eCW1 ([facility]) 10 mg 02/17/2020 12:00:00 AM EDT tablet 30 TAKE ONE TABLET BY MOUTH EVERY DAY TAKE ONE TABLET BY MOUTH EVERY DAY SOLD: 02/17/2020 [facility] torsemide 10 MG Oral Tablet Torsemide 10 MG Torsemide 10 MG 02/17/2020 12:00:00 AM EDT 1.0 {tablet} active Torsemide 1 0 MG eCW1 ([facility]) torsemide 20 MG Oral Tablet Torsemide 20 MG Torsemide 20 MG 02/17/2020 12:00:00 AM EDT 1.0 {tablet} active Torsemide 2 0 MG eCW1 ([facility]) torsemide 10 MG Oral Tablet Torsemide 10 MG Torsemide 10 MG 02/17/2020 12:00:00 AM EDT 1.0 {tablet} active Torsemide 1 0 MG eCW1 ([facility]) torsemide 20 MG Oral Tablet Torsemide 20 MG Torsemide 20 MG 02/17/2020 12:00:00 AM EDT 1.0 {tablet} active Torsemide 2 0 MG eCW1 ([facility]) torsemide 10 MG Oral Tablet Torsemide 10 MG Torsemide 10 MG 02/17/2020 12:00:00 AM EDT 1.0 {tablet} active Torsemide 1 0 MG eCW1 ([facility]) torsemide 10 MG Oral Tablet Torsemide 10 MG Torsemide 10 MG 02/17/2020 12:00:00 AM EDT 1.0 {tablet} active Torsemide 1 0 MG eCW1 ([facility]) torsemide 10 MG Oral Tablet Torsemide 10 MG Torsemide 10 MG 02/17/2020 12:00:00 AM EDT 1.0 {tablet} active Torsemide 1 0 MG eCW1 ([facility]) 500 mg 02/06/2020 12:00:00 AM EDT tablet extended release 24 hr 30 TAKE 1 TABLET ONCE DAILY WITH EVENING MEAL TAKE 1 TABLET ONCE DAILY WITH EVENING MEAL SOLD: 02/08/2020 [facility] MetFORMIN HCl ER 500 MG MetFORMIN HCl ER 500 MG 02/03/2020 12:00:00 AM EDT 1.0 {tablet_with_evening_meal} active MetFO RMIN HCl ER 500 MG eCW1 ([facility]) MetFORMIN HCl ER 500 MG MetFORMIN HCl ER 500 MG 02/03/2020 12:00:00 AM EDT 1.0 {tablet_with_evening_meal} active MetFO RMIN HCl ER 500 MG eCW1 ([facility]) MetFORMIN HCl ER 500 MG MetFORMIN HCl ER 500 MG 02/03/2020 12:00:00 AM EDT 1.0 {tablet_with_evening_meal} active MetFO RMIN HCl ER 500 MG eCW1 ([facility]) MetFORMIN HCl ER 500 MG MetFORMIN HCl ER 500 MG 02/03/2020 12:00:00 AM EDT 1.0 {tablet_with_evening_meal} active MetFO RMIN HCl ER 500 MG eCW1 ([facility]) 24 HR Metformin hydrochloride 500 MG Ext ended Release Oral Tablet MetFORMIN HCl ER 500 MG MetFORMIN HCl ER 500 MG 02/03/2020 12:00:00 AM EDT 1.0 {tablet_with_evening_meal} active MetFO RMIN HCl ER 500 MG eCW1 ([facility]) MetFORMIN HCl ER 500 MG MetFORMIN HCl ER 500 MG 02/03/2020 12:00:00 AM EDT 1.0 {tablet_with_evening_meal} active MetFO RMIN HCl ER 500 MG eCW1 ([facility]) BLOOD SUGAR DIAGNOSTIC 01/23/2020 12:00:00 AM EDT [...] AM EDT activ e Walker - eCW1 ([facility]) Walker - Walker - 11/19/2019 12:00:00 AM EDT activ e Walker - eCW1 ([facility]) Walker - Walker - 11/19/2019 12:00:00 AM EDT activ e Walker - eCW1 ([facility]) Walker - Walker - 11/19/2019 12:00:00 AM EDT activ e Walker - eCW1 ([facility]) Walker - Walker - 11/19/2019 12:00:00 AM EDT activ e Walker - eCW1 ([facility]) Walker - Walker - 11/19/2019 12:00:00 AM EDT activ e Walker - eCW1 ([facility]) Walker - Walker - 11/19/2019 12:00:00 AM EDT activ e Walker - eCW1 ([facility]) Walker - Walker - 11/19/2019 12:00:00 AM EDT activ e Walker - eCW1 ([facility]) Walker - Walker - 11/19/2019 12:00:00 AM EDT activ e Walker - eCW1 ([facility]) Walker - Walker - 11/19/2019 12:00:00 AM EDT activ e Walker - eCW1 ([facility]) Walker - Walker - 11/19/2019 12:00:00 AM EDT activ e Walker - eCW1 ([facility]) Walker - Walker - 11/19/2019 12:00:00 AM EDT activ e Walker - eCW1 ([facility]) Walker - Walker - 11/19/2019 12:00:00 AM EDT activ e Walker - eCW1 ([facility]) 75 mg 11/19/2019 12:00:00 AM EDT tablet 90 TAKE ONE TABLET BY MOUTH DAILY TAKE ONE TABLET BY MOUTH DAILY SOLD: 11/23/2019 [facility] Walker - Walker - 11/19/2019 12:00:00 AM EDT activ e Walker - eCW1 ([facility]) Walker - Walker - 11/19/2019 12:00:00 AM EDT activ e Walker - eCW1 ([facility]) Walker - Walker - 11/19/2019 12:00:00 AM EDT activ e Walker - eCW1 ([facility]) Walker - Walker - 11/19/2019 12:00:00 AM EDT activ e Walker - eCW1 ([facility]) 20 mg 11/19/2019 12:00:00 AM EDT tablet 90 TAKE ONE TABLET BY MOUTH EVERY MORNING TAKE ONE TABLET BY MOUTH EVERY MORNING SOLD: 11/23/2019 [facility] Walker - Walker - 11/19/2019 12:00:00 AM EDT activ e Walker - eCW1 ([facility]) glimepiride 2 MG Oral Tablet GLIMEPIRIDE 11/19/2019 12:00:00 AM EDT t ablet 360 TAKE TWO TABLETS BY MOUTH BEFORE MEALS TWO TIMES A DAY TAKE TWO TABLETS BY MOUTH BEFORE MEALS TWO TIMES A DAY SOLD: 11/23/2019 [facility] Walker - Walker - 11/19/2019 12:00:00 AM EDT activ e Walker - eCW1 ([facility]) Walker - Walker - 11/19/2019 12:00:00 AM EDT activ e Walker - eCW1 ([facility]) Walker - Walker - 11/19/2019 12:00:00 AM EDT activ e Walker - eCW1 ([facility]) Walker - Walker - 11/19/2019 12:00:00 AM EDT activ e Walker - eCW1 ([facility]) Walker - Walker - 11/19/2019 12:00:00 AM EDT activ e Walker - eCW1 ([facility]) Walker - Walker - 11/19/2019 12:00:00 AM EDT activ e Walker - eCW1 ([facility]) Walker - Walker - 11/19/2019 12:00:00 AM EDT activ e Walker - eCW1 ([facility]) BLOOD SUGAR DIAGNOSTIC 11/03/2019 12:00:00 AM EDT [...] AM EDT active Januvia 50 MG eCW1 ([facility]) sitagliptin 50 MG Oral Tablet [Januvia] Januvia 50 MG Januvi a 50 MG 09/24/2019 12:00:00 AM EDT active Januvia 50 MG eCW1 ([facility]) sitagliptin 50 MG Oral Tablet [Januvia] Januvia 50 MG Januvi a 50 MG 09/24/2019 12:00:00 AM EDT active as direc barbara eCW1 ([facility]) sitagliptin 50 MG Oral Tablet [Januvia] Januvia 50 MG Januvi a 50 MG 09/24/2019 12:00:00 AM EDT active Januvia 50 MG eCW1 ([facility]) sitagliptin 50 MG Oral Tablet [Januvia] Januvia 50 MG Januvi a 50 MG 09/24/2019 12:00:00 AM EDT active Januvia 50 MG eCW1 ([facility]) sitagliptin 50 MG Oral Tablet [Januvia] Januvia 50 MG Januvi a 50 MG 09/24/2019 12:00:00 AM EDT active Januvia 50 MG eCW1 ([facility]) sitagliptin 50 MG Oral Tablet [Januvia] Januvia 50 MG Januvi a 50 MG 09/24/2019 12:00:00 AM EDT active Januvia 50 MG eCW1 ([facility]) glimepiride 2 MG Oral Tablet GLIMEPIRIDE 09/18/2019 [...] act jasen Fluticasone Propionate 50 MCG/ACT eCW1 ([facility]) Fluticasone Propionate 50 MCG/ACT Fluticasone Propionate 50 MCG/ACT 09/08/2019 12:00:00 AM EDT active 2 sprays in each nostril eCW1 ([facility]) Fluticasone Propionate 50 MCG/ACT Fluticasone Propionate 50 MCG/ACT 09/08/2019 12:00:00 AM EDT 2.0 {sprays_in_each_nostril} act jasen Fluticasone Propionate 50 MCG/ACT eCW1 ([facility]) Fluticasone Propionate 50 MCG/ACT Fluticasone Propionate 50 MCG/ACT 09/08/2019 12:00:00 AM EDT 2.0 {sprays_in_each_nostril} act jasen Fluticasone Propionate 50 MCG/ACT eCW1 ([facility]) Fluticasone Propionate 50 MCG/ACT Fluticasone Propionate 50 MCG/ACT 09/08/2019 12:00:00 AM EDT 2.0 {sprays_in_each_nostril} act jasen Fluticasone Propionate 50 MCG/ACT eCW1 ([facility]) Fluticasone Propionate 50 MCG/ACT Fluticasone Propionate 50 MCG/ACT 09/08/2019 12:00:00 AM EDT 2.0 {sprays_in_each_nostril} act jasen Fluticasone Propionate 50 MCG/ACT eCW1 ([facility]) Fluticasone Propionate 50 MCG/ACT Fluticasone Propionate 50 MCG/ACT 09/08/2019 12:00:00 AM EDT 2.0 {sprays_in_each_nostril} act jasen Fluticasone Propionate 50 MCG/ACT eCW1 ([facility]) Fluticasone Propionate 50 MCG/ACT Fluticasone Propionate 50 MCG/ACT 09/08/2019 12:00:00 AM EDT 2.0 {sprays_in_each_nostril} act jasen Fluticasone Propionate 50 MCG/ACT eCW1 ([facility]) Fluticasone Propionate 50 MCG/ACT Fluticasone Propionate 50 MCG/ACT 09/08/2019 12:00:00 AM EDT 2.0 {sprays_in_each_nostril} act jasen Fluticasone Propionate 50 MCG/ACT eCW1 ([facility]) Fluticasone Propionate 50 MCG/ACT Fluticasone Propionate 50 MCG/ACT 09/08/2019 12:00:00 AM EDT 2.0 {sprays_in_each_nostril} act jasen Fluticasone Propionate 50 MCG/ACT eCW1 ([facility]) Fluticasone Propionate 50 MCG/ACT Fluticasone Propionate 50 MCG/ACT 09/08/2019 12:00:00 AM EDT 2.0 {sprays_in_each_nostril} act jasen Fluticasone Propionate 50 MCG/ACT eCW1 ([facility]) Fluticasone Propionate 50 MCG/ACT Fluticasone Propionate 50 MCG/ACT 09/08/2019 12:00:00 AM EDT 2.0 {sprays_in_each_nostril} act jasen Fluticasone Propionate 50 MCG/ACT eCW1 ([facility]) Fluticasone Propionate 50 MCG/ACT Fluticasone Propionate 50 MCG/ACT 09/08/2019 12:00:00 AM EDT 2.0 {sprays_in_each_nostril} act jasen Fluticasone Propionate 50 MCG/ACT eCW1 ([facility]) Fluticasone Propionate 50 MCG/ACT Fluticasone Propionate 50 MCG/ACT 09/08/2019 12:00:00 AM EDT 2.0 {sprays_in_each_nostril} act jasen Fluticasone Propionate 50 MCG/ACT eCW1 ([facility]) Potassium Chloride 10 MEQ Extended Release Oral [...] type / Coverage type Policy ID Covered republican ID Covered republican's relationship to katz Policy Katz Plan Information [employer] [id number] SP [id number] WE[employer] O [id number] S [id number] ANSI-Health Maintenance Organization ( O) [id number] ANSI-Medicare Part B [id number] ANSI-Medicare Part B [id number] ANSI-Medicare Part B [id number] ANSI-Medicare Part B [id number] ANSI-Health Maintenance Organization ( O) [id number] [facility] [id number] SP [id number] ANSI-Medicare Part B [id number] [facility] ( O) [id number] ANSI-Medicare Part B [id number] ANSI-Health Maintenance Organization ( O) [id number] ANSI-Medicare Part B [id number] ANSI-Medicare Part B [id number] ANSI-Medicare Part B [id number] ANSI-Medicare Part B [id number] ANSI-Health Maintenance Organization ( O) [id number] ANSI-Health Maintenance Organization ( O) [id number] ANSI-Medicare Part B [id number] ANSI-Medicare Part B [id number] ANSI-Medicare Part B [id number] ANSI-Medicare Part B [id number] ANSI-Health Maintenance Organization ( O) [id number] ANSI-Medicare Part B [id number] ANSI-Medicare Part B [id number] ANSI-Health Maintenance Organization ( O) [id number] ANSI-Medicare Part B [id number] [facility]-Health Maintenance Organization ( O) [id number] ANSI-Medicare Part B [id number] ANSI-Medicare Part B [id number] ANSI-Health Maintenance Organization ( O) [id number] ANSI-Medicare Part B [id number] [employer] [id number] ANSI-Medicare Part B [id number] ANSI-Medicare Part B [id number] ANSI-Medicare Part B [id number] ANSI-Medicare Part B [id number]-jky2-7920-27o4-b810wf2u16f6 84ob931h-ezu8-8686-11t7-j605sv8s36p0 ANSI-Medicare Part B [id number]-k6ck-3l06-4752-u4c832x16jo6 92431nw5-l9dp-2i78-4842-r8i708d07es5 ANSI-Medicare Part B [id number]-k790-8764-s104-5c75yh89540g s35889fn-j588-1176-e746-5g48jo38530s ANSI-Medicare Part B [id number] 44047b84-0001-8193-9a41-4919vh39bx7s ANSI-Medicare Part B [id number]-1457-42h0-i3v36t0w9atp 9b4406t7-945h-6696-50d0-x9r30u8u1rzr ANSI-Medicare Part B [id number]-2w48-92g0-66n6-[id number] 0w6197af-0o77-54o9-23l3-bf2860j3797a ANSI-Medicare Part B i2c965u1-j014-0vwp-298i-40149zh4g5fi o7p882j8-v340-4fpd-211e-88149dt9n7ji ANSI-Medicare Part B 2m8f5r7q-c903-5agq-5hl5-72482vgp9p29 8p4i8e0z-z359-2mtn-4ib4-06126fsr9z43 ANSI-Medicare Part B 6q41zj6c-o481-1o03-6870-65d5q2p5k28f 2y21dw9q-n245-5a26-2241-65n1m0t3b46i ANSI-Medicare Part B [id number]-sq62-9ky5-s705-61c36c09d881 7520360c-yh18-0np1-c943-60u99c88n864 ANSI-Medicare Part B [id number]-4ap2-40h9-i428-ri1486wa3b05 v7019s6g-2iz1-67r0-b224-ol7723lv6z63 ANSI-Medicare Part B 9j6u7hb8-7co0-8cw8-s999-[id number] 7a7c5ss2-1al4-6hj7-p021-u83w56791185 ANSI-Medicare Part B 4hy050f6-1q8m-0eqc-4saa-8q3er0aa7m48 0uk481o0-3o0m-5vtz-4glt-9c1kv1aq8b49 MEDICAID [id number] SP [id number] [employer] PROGRESSIVE [id number] SP [id number] MEDICARE [id number] SP [id number] A AMER PROG [employer] OPTIONS G [id number] Self [id number] AMER PROG TOD[employer]YS OPTIONS G [id number] Self [id number] [facility] [id number] SP [id number] TOD[employer] OPTIONS/AFGHAN O [id number] S [id number] MEDICARE [id number] SP [id number] A [employer] PROGRESSIVE [id number] SP [id number] MEDICARE [id number] SP [id number] A [employer]YS OPTIONS [id number] SP [id number] MEDICARE [id number] SP [id number] A MEDICARE COMPLETE [id number] SP [id number] MEDICARE COMPLETE [id number] SP [id number] MEDICARE COMPLETE [id number] SP [id number] Problems, Conditions, and Diagnoses Code Display Name Description Problem Type Effective Dates Data Source(s) I82.511 [id number] 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 Problem 03/14/2020 12:00:00 AM EST eCW1 ([facility]) L98.491 [id number] Superficial ulcer of skin Problem 02/16/2020 12:00:00 AM EDT eCW1 ([facility]) I73.9 [id number] PVD (peripheral vascular disease) Problem 09/08/2019 12:00:00 AM EDT eCW1 ([facility]) J30.89 [id number] Non-seasonal allergic rhinitis, unspecifi ed trigger Problem 09/08/2019 12:00:00 AM EDT eCW1 ([facility]) I73.9 [id number] PVD (peripheral vascular disease) Problem 09/08/2019 12:00:00 AM EDT eCW1 ([facility]) J30.89 [id number] Non-seasonal allergic rhinitis, unspecifi ed trigger Problem 09/08/2019 12:00:00 AM EDT eCW1 ([facility]) Surgeries/Procedures Procedure Description Date Indications Data Source(s) Office Visit, Est Pt., Level 3 FC 09/08/2019 12:00:00 AM EDT eCW1 ([facility]) Office Visit, Est Pt., Level 4 PC 09/08/2019 12:00:00 AM EDT eCW1 ([facility]) Results ID Date Data Source NT-PRO BNP 02/17/2020 08:58:05 AM EDT eCW1 ([facility]) Name Value Range Interpretation Code Description Data Nichole rce(s) Supporting Document(s) 760 NT-PRO BNP eCW1 (Replaced by [facility]) ID Date Data Source MAGNESIUM LEVEL 02/17/2020 08:49:08 AM EDT eCW1 ([facility]) Name Value Range Interpretation Code Description Data Nichole rce(s) Supporting Document(s) 1.9 MAGNESIUM LEVEL eCW1 (Formerly [facility], [facility]) ID Date Data Source Comprehensive Metabolic Profile (CMP) 02/17/2020 08:49:03 AM EDT eCW1 ([facility]) Name Value Range Interpretation Code Description Data Nichole rce(s) Supporting Document(s) > 60.0 GLOMERULAR FILTRATION RATE eCW 1 ([facility]) 20 BLOOD UREA NITROGEN eCW1 ([facility]) 151 GLUCOSE, FASTING eCW1 ([facility]) 1.18 CREATININE FOR GFR eCW1 ([facility]) 101 CHLORIDE LEVEL eCW1 ([facility]) 141 SODIUM LEVEL eCW1 ([facility]) 35 CARBON DIOXIDE LEVEL eCW1 ([facility]) 4.6 POTASSIUM SERUM eCW1 (Formerly [facility]) 18 ALT/SGPT eCW1 ([facility]) 10 AST/SGOT eCW1 ([facility]) 9.1 CALCIUM LEVEL eCW1 ([facility]) 78 ALKALINE PHOSPHATASE eCW1 ([facility]) 3.4 ALBUMIN eCW1 ([facility]) 0.4 BILIRUBIN,TOTAL eCW1 ([facility]ly [facility]) 6.8 TOTAL PROTEIN eCW1 ([facility]) 1.0 ALBUMIN/GLOBULIN RATIO eCW1 ([facility]ly [facility]) Procedure Social History Code Duration Value Status Description Data Source(s ) Smoking 06/14/2020 12:00:00 AM EST Former Smoker completed Former Smoker eCW1 ([facility]) Smoking 06/02/2020 12:00:00 AM EST Former Smoker completed Former Smoker eCW1 ([facility]) Smoking 03/14/2020 12:00:00 AM EST Former Smoker completed Former Smoker eCW1 ([facility]) Smoking 03/14/2020 12:00:00 AM EST Former Smoker completed Former Smoker eCW1 ([facility]) Smoking 03/14/2020 12:00:00 AM EST Former Smoker completed Former Smoker eCW1 ([facility]) Smoking 03/14/2020 12:00:00 AM EST Former Smoker completed Former Smoker eCW1 ([facility]) Smoking 03/14/2020 12:00:00 AM EST Former Smoker completed Former Smoker eCW1 ([facility]) Smoking 03/14/2020 12:00:00 AM EST Former Smoker completed Former Smoker eCW1 ([facility]) Smoking 03/14/2020 12:00:00 AM EST Former Smoker completed Former Smoker eCW1 ([facility]) Smoking 03/14/2020 12:00:00 AM EST Former Smoker completed Former Smoker eCW1 ([facility]) Smoking 03/14/2020 12:00:00 AM EST Former Smoker completed Former Smoker eCW1 ([facility]) Smoking 03/14/2020 12:00:00 AM EST Former Smoker completed Former Smoker eCW1 ([facility]) Smoking 03/14/2020 12:00:00 AM EST Former Smoker completed Former Smoker eCW1 ([facility]) Smoking 03/03/2020 12:00:00 AM EST Former Smoker completed Former Smoker eCW1 ([facility]) Smoking 03/03/2020 12:00:00 AM EST Former Smoker completed Former Smoker eCW1 ([facility]) Smoking 03/03/2020 12:00:00 AM EST Former Smoker completed Former Smoker eCW1 ([facility]) Smoking 03/03/2020 12:00:00 AM EST Former Smoker completed Former Smoker eCW1 ([facility]) Smoking 03/03/2020 12:00:00 AM EST Former Smoker completed Former Smoker eCW1 ([facility]) Smoking 03/02/2020 12:00:00 AM EST Former Smoker completed Former Smoker eCW1 ([facility]) Smoking 02/16/2020 12:00:00 AM EDT Former Smoker completed Former Smoker eCW1 ([facility]) Smoking 02/16/2020 12:00:00 AM EDT Former Smoker completed Former Smoker eCW1 ([facility]) Smoking 02/16/2020 12:00:00 AM EDT Former Smoker completed Former Smoker eCW1 ([facility]) Smoking 09/08/2019 12:00:00 AM EDT Former Smoker completed Former Smoker eCW1 ([facility]) Smoking 09/08/2019 12:00:00 AM EDT Former Smoker completed Former Smoker eCW1 ([facility]) Smoking 09/08/2019 12:00:00 AM EDT Former Smoker completed Former Smoker eCW1 ([facility]) Smoking 09/08/2019 12:00:00 AM EDT Former Smoker completed Former Smoker eCW1 ([facility]) Vital Signs ID Date Data Source UNK Name Value Range Interpretation Code Description Data Source(s) Diastolic blood pressure 80 mm[Hg] 80 mm[Hg] eCW1 ([facility]) Systolic blood pressure 120 mm[Hg] 120 mm[Hg] e CW1 ([facility]) Body temperature 97.1 [degF] 97.1 [degF] eCW1 ( [facility]) Respiratory rate 20 /min 20 /min eCW1 (Formerly [facility]) Heart rate 119 /min 119 /min eCW1 (Formerly [facility]) Body mass index (BMI) [Ratio] 33.51 kg/m2 33.51 kg/m2 W1 ([facility]) Body height 73 [in_i] 73 [in_i] eCW1 ([facility]) Body weight 254 [lb_av] 254 [lb_av] eCW1 ([facility]) Diastolic blood pressure 82 mm[Hg] 82 mm[Hg] eCW1 ([facility]) Systolic blood pressure 138 mm[Hg] 138 mm[Hg] e CW1 ([facility]) Body temperature 96.8 [degF] 96.8 [degF] eCW1 ( [facility]) Respiratory rate 18 /min 18 /min eCW1 ([facility]ly [facility]) Heart rate 95 /min 95 /min eCW1 ([facility]ly [facility]) Body mass index (BMI) [Ratio] 34.22 kg/m2 34.22 kg/m2 W1 ([facility]) Body height 73 [in_i] 73 [in_i] eCW1 ([facility]) Body weight 259.4 [lb_av] 259.4 [lb_av] eCW1 ([facility]) Diastolic blood pressure 82 mm[Hg] 82 mm[Hg] eCW1 ([facility]) Systolic blood pressure 138 mm[Hg] 138 mm[Hg] e CW1 ([facility]) Body temperature 96.8 [degF] 96.8 [degF] eCW1 ( [facility]) Respiratory rate 18 /min 18 /min eCW1 ([facility]ly [facility]) Heart rate 95 /min 95 /min eCW1 ([facility]ly [facility]) Body mass index (BMI) [Ratio] 34.22 kg/m2 34.22 kg/m2 eCW1 ([facility]) Body height 73 [in_i] 73 [in_i] eCW1 ([facility]) Body weight 259.4 [lb_av] 259.4 [lb_av] eCW1 ([facility]) Diastolic blood pressure 88 mm[Hg] 88 mm[Hg] eCW1 ([facility]) Systolic blood pressure 132 mm[Hg] 132 mm[Hg] e CW1 ([facility]) Body temperature 97.7 [degF] 97.7 [degF] eCW1 ( [facility]) Respiratory rate 22 /min 22 /min eCW1 ([facility]ly [facility]) Heart rate 96 /min 96 /min eCW1 ([facility]ly [facility]) Body mass index (BMI) [Ratio] 34.83 kg/m2 34.83 kg/m2 eCW1 ([facility]) Body height 73 [in_i] 73 [in_i] eCW1 ([facility]) Body weight 264 [lb_av] 264 [lb_av] eCW1 ([facility]) Diastolic blood pressure 80 mm[Hg] 80 mm[Hg] eCW1 ([facility]) Systolic blood pressure 138 mm[Hg] 138 mm[Hg] e CW1 ([facility]) Body temperature 97.4 [degF] 97.4 [degF] eCW1 ( [facility]) Respiratory rate 18 /min 18 /min eCW1 ([facility]ly [facility]) Heart rate 91 /min 91 /min eCW1 ([facility]ly [facility]) Body mass index (BMI) [Ratio] 34.30 kg/m2 34.30 kg/m2 eCW1 ([facility]) Body height 73 [in_i] 73 [in_i] eCW1 ([facility]) Body weight 260 [lb_av] 260 [lb_av] eCW1 ([facility]) Diastolic blood pressure 80 mm[Hg] 80 mm[Hg] eCW1 ([facility]) Systolic blood pressure 138 mm[Hg] 138 mm[Hg] e CW1 ([facility]) Body temperature 97.4 [degF] 97.4 [degF] eCW1 ( [facility]) Respiratory rate 18 /min 18 /min eCW1 ([facility]) Heart rate 91 /min 91 /min eCW1 ([facility]ly [facility]) Body mass index (BMI) [Ratio] 32.98 kg/m2 32.98 kg/m2 eCW1 ([facility]) Body height 73 [in_i] 73 [in_i] eCW1 ([facility]) Body weight 250 [lb_av] 250 [lb_av] eCW1 ([facility]) Diastolic blood pressure 78 mm[Hg] 78 mm[Hg] eCW1 ([facility]) Systolic blood pressure 122 mm[Hg] 122 mm[Hg] e CW1 ([facility]) Body temperature 97.4 [degF] 97.4 [degF] eCW1 ( [facility]) Respiratory rate 18 /min 18 /min eCW1 ([facility]) Heart rate 111 /min 111 /min eCW1 ([facility]) Body mass index (BMI) [Ratio] 33.11 kg/m2 33.11 kg/m2 W1 ([facility]) Body height 73 [in_us] 73 [in_us] eCW1 ([facility]) Body weight Measured 251.0 [lb_av] 251.0 [lb_av ] eCW1 ([facility]) Patient Treatment Plan of Care Planned Activity Planned Date Details Description Data Source (s) Tresiba FlexTouch 200 UNIT/ML 05/13/2020 12:00:00 AM EST eCW1 ([facility]) [place] 05/13/2020 12:00:00 AM EST e CW1 ([facility]) Tresiba FlexTouch 200 UNIT/ML 05/13/2020 12:00:00 AM EST eCW1 ([facility]) [place] 05/13/2020 12:00:00 AM EST e CW1 ([facility]) Tresiba FlexTouch 200 UNIT/ML 05/13/2020 12:00:00 AM EST eCW1 ([facility]) [place] 05/13/2020 12:00:00 AM EST e CW1 ([facility]) Tresiba FlexTouch 200 UNIT/ML 05/13/2020 12:00:00 AM EST eCW1 ([facility]) [place] 05/13/2020 12:00:00 AM EST e CW1 ([facility]) Tresiba FlexTouch 200 UNIT/ML 05/13/2020 12:00:00 AM EST eCW1 ([facility]) Tresiba FlexTouch 200 UNIT/ML 05/13/2020 12:00:00 AM EST eCW1 ([facility]) [place] 05/13/2020 12:00:00 AM EST e CW1 ([facility]) torsemide 20 MG Oral Tablet 02/17/2020 12:00:00 AM EDT eCW1 ([facility]) torsemide 20 MG Oral Tablet 02/17/2020 12:00:00 AM EDT eCW1 ([facility]) torsemide 20 MG Oral Tablet 02/17/2020 12:00:00 AM EDT eCW1 ([facility]) torsemide 10 MG Oral Tablet 02/17/2020 12:00:00 AM EDT eCW1 ([facility]) torsemide 10 MG Oral Tablet 02/17/2020 12:00:00 AM EDT eCW1 ([facility]) torsemide 10 MG Oral Tablet 02/17/2020 12:00:00 AM EDT eCW1 ([facility]) MetFORMIN HCl ER 500 MG 02/03/2020 12:00:00 AM EDT eCW1 ([facility]) MetFORMIN HCl ER 500 MG 02/03/2020 12:00:00 AM EDT eCW1 ([facility]) MetFORMIN HCl ER 500 MG 02/03/2020 12:00:00 AM EDT eCW1 ([facility]) MetFORMIN HCl ER 500 MG 02/03/2020 12:00:00 AM EDT eCW1 ([facility]) Walker - 11/19/2019 12:00:00 AM EDT e CW1 ([facility]) [place] - 11/19/2019 12:00:00 AM EDT e CW1 ([facility]) [place] - 11/19/2019 12:00:00 AM EDT e CW1 ([facility]) sitagliptin 50 MG Oral Tablet [Januvia] 09/24/2019 12:00:00 AM EDT eCW1 ([facility]) sitagliptin 50 MG Oral Tablet [Januvia] 09/24/2019 12:00:00 AM EDT eCW1 ([facility]) sitagliptin 50 MG Oral Tablet [Januvia] 09/24/2019 12:00:00 AM EDT eCW1 ([facility]) sitagliptin 50 MG Oral Tablet [Januvia] 09/24/2019 12:00:00 AM EDT eCW1 ([facility]) sitagliptin 50 MG Oral Tablet [Januvia] 09/24/2019 12:00:00 AM EDT eCW1 ([facility]) Fluticasone Propionate 50 MCG/ACT 09/08/2019 12:00:00 AM EDT eCW1 ([facility]) Fluticasone Propionate 50 MCG/ACT 09/08/2019 12:00:00 AM EDT eCW1 ([facility]) Fluticasone Propionate 50 MCG/ACT 09/08/2019 12:00:00 AM EDT eCW1 ([facility]) Fluticasone Propionate 50 MCG/ACT 09/08/2019 12:00:00 AM EDT eCW1 ([facility]) Fluticasone Propionate 50 MCG/ACT 09/08/2019 12:00:00 AM EDT eCW1 ([facility])
[2020-06-22 05:10] LABS: INR 1.05; PROTHROMBIN TIME 13.9 SECONDS (12.5-14.3)
[2020-06-22 05:11] LABS: PARTIAL THROMBOPLASTIN TIME 28.1 SECONDS (24.2-38.5)
--- NOTE | 2020-06-22 05:44 | REPVR ---
PROCEDURE INFORMATION: Exam: XR Chest, 1 View Exam date and time: 06/22/2020 5:29 AM Age: 85 years old Clinical indication: Other: CVA ? TECHNIQUE: Imaging protocol: XR of the chest Views: 1 view. COMPARISON: CR PORTABLE CHEST X-RAY 03/02/2020 5:33 PM FINDINGS: Limitations: The left costophrenic angle was excluded. The projection is apical lordotic. Lungs: The lungs are clear. Pleural spaces: No pleural effusions or pneumothorax identified. Heart/Mediastinum: The heart is enlarged. A rounded lucency projecting over the heart is consistent with a moderate sized hiatal hernia, also reported on a CT scan of the abdomen and pelvis from June 07, 2016. Vasculature: Aortic knob calcifications are noted. Bones/joints: Unremarkable. IMPRESSION: 1. Cardiomegaly. 2. Hiatal hernia. 3. No evidence of acute pleural or parenchymal disease. Electronically signed by: Claire Baez On 06/22/2020 05:44:40 AM
[2020-06-22] MEDS: HumaLOG INSULIN (NovoLOG) PER UNIT SC SCH ×4 (06:00→21:00)
[2020-06-22 06:19] LABS: ALBUMIN 3.6 GM/DL (3.2-5.2); ALT/SGPT 25 U/L (12-78); BILIRUBIN,DIRECT 0.1 MG/DL (0.0-0.2); BILIRUBIN,TOTAL 0.3 MG/DL (0.2-1.0); BLOOD UREA NITROGEN 24 MG/DL (7-18); CALCIUM LEVEL 9.2 MG/DL (8.8-10.2); CARBON DIOXIDE LEVEL 35 MEQ/L (21-32); CHLORIDE LEVEL 101 MEQ/L (98-107); CK-MB VALUE MASS 2.1 NG/ML (<3.6); CPK CREATINE PHOSPHOKINASE 82 U/L (39-308); CREATININE FOR GFR 1.17 MG/DL (0.70-1.30); GLOMERULAR FILTRATION RATE > 60.0 (>35); GLUCOSE, FASTING 163 MG/DL (70-100); MB/CK RELATIVE INDEX 2.56 (< OR =4); POTASSIUM SERUM 4.3 MEQ/L (3.5-5.1); SODIUM LEVEL 142 MEQ/L (136-145); TOTAL PROTEIN 7.2 GM/DL (6.4-8.2); TROPONIN I < 0.02 NG/ML (< 0.10)
[2020-06-22] MEDS ORDERED: GLUCOSE 4GM CHEW TABLET PO PRN (07:45)
[2020-06-22] MEDS ORDERED: GLUCAGON INJ 1MG VIAL SC PRN (07:45)
[2020-06-22] MEDS ORDERED: DEXTROSE 50% 50 ML SYRINGE IV PRN (07:45)
--- OUTSIDE RECORDS SUMMARY | 2020-06-22 07:51 | CCD ---
Author Author [facility] Organization [facility] Address Unknown Phone Unavailable Support Name Relationship Address Phone JOHNIE BLACK[place] [address] DES[address]CAR Next Of Kin [address] [place] [address] RE Next Of Kin Unknown Unavailable DESORMO EXCAVATING Next Of Kin [address] [place] [address] DESORMO, COCO [place] [address] DIMASOASHANTIDA Next Of Kin [address] [place] [address] Desormo, Pedrito ECON [address] [place] [address] Unavailable Desormo, [place] [address] Unavailable Re-disclosure Warning The records that you [...] is protected by Article 27-F of the [facility] Public Health law. If you continue you may have access to information: Regarding HIV / AIDS; Provided by facilities licensed or operated by the [facility] Office of Mental Health; or Provided by the [facility] Office for People With Developmental Disabilities. If such information is present, then the following [facility] mandated warning applies: This information has been [...] law may result in a fine or long-term sentence or both. A general authorization for the release of medical or other information is NOT sufficient authorization for further disc losure. Allergies and Adverse Reactions Type Description Substance Reaction Status Data Source(s ) evironmental evironmental evironmental watery eyes,sneezing Active eCW1 ([facility]) Encounters Encounter Providers Location Date Indications Data Source(s ) Unknown [address] [facility] [id number] 06/13/2020 12:00:00 AM EST eCW1 ([facility]) Outpatient [address] [facility] [address] 06/02/2020 12:00:00 AM EST eCW1 ([facility]) Unknown [address] [facility] [id number] 05/26/2020 12:00:00 AM EST eCW1 ([facility]) Unknown [address] [facility] [address] 05/26/2020 12:00:00 AM EST eCW1 ([facility]) Unknown [address] [facility] [id number] 05/17/2020 12:00:00 AM EST eCW1 ([facility]) Unknown [address] [facility] [place] [address] 05/16/2020 12:00:00 AM EST eCW1 ([facility]) Unknown [address] [facility] [id number] 05/12/2020 12:00:00 AM EST eCW1 ([facility]) Unknown [address] [facility] [id number] 05/12/2020 12:00:00 AM EST eCW1 ([facility]) [place] [address] [facility] [address] 04/27/2020 12:00:00 AM EST eCW1 ([facility]) [place] [address] [facility] [address] 04/12/2020 12:00:00 AM EST eCW1 ([facility]) [place] [address] [facility] [address] 03/17/2020 12:00:00 AM EST eCW1 ([facility]) Out[place] [address] [facility] [address] 03/14/2020 12:00:00 AM EST eCW1 ([facility]) Unknown [address] [facility] [address] 03/11/2020 12:00:00 AM EST eCW1 ([facility]) Unknown [address] [facility] [address] 03/08/2020 12:00:00 AM EST eCW1 ([facility]) Unknown [address] [facility] [address] 03/03/2020 12:00:00 AM EST eCW1 ([facility]) Unknown [address] [facility] [address] 03/03/2020 12:00:00 AM EST eCW1 ([facility]) Office Visit, Est Pt., Level 3 PC [address] [place] [address] 03/02/2020 12:00:00 AM EST eCW1 ([facility]) Unknown [address] [facility] [address] 02/29/2020 12:00:00 AM EST eCW1 ([facility]) [facility] [place] [address] [facility] [address] 02/26/2020 12:00:00 AM EDT eCW1 ([facility]) Unknown [address] [facility] [address] 02/25/2020 12:00:00 AM EDT eCW1 ([facility]) Office Visit, Est Pt., Level 3 PC [address] [place] [address] 02/16/2020 12:00:00 AM EDT eCW1 ([facility]) Unknown [address] [facility] [place] [address] 02/03/2020 12:00:00 AM EDT eCW1 ([facility]) Unknown [address] [facility] [address] 11/19/2019 12:00:00 AM EDT eCW1 ([facility]) Unknown [address] [facility] [place] [address] 11/18/2019 12:00:00 AM EDT eCW1 ([facility]) Unknown [address] [facility] [place] [address] 10/05/2019 12:00:00 AM EDT eCW1 ([facility]) [facility] [address] [facility] [place] [address] 09/24/2019 12:00:00 AM EDT eCW1 ([facility]) [facility] [address] [facility] [place] [address] 09/16/2019 12:00:00 AM EDT eCW1 ([facility]) [facility] [address] [facility] [place] [address] 09/08/2019 12:00:00 AM EDT eCW1 ([facility]) [facility] [address] [facility] [place] [address] 07/23/2019 12:00:00 AM EDT eCW1 ([facility]) [facility] [address] [facility] [place] [address] 07/08/2019 12:00:00 AM EDT eCW1 ([facility]) [address] [address] 07/08/2019 12:00:00 AM EDT eCW1 ([facility]) [address] [address] 06/24/2019 12:00:00 AM EST eCW1 ([facility]) [address] [address] 06/15/2019 12:00:00 AM EST eCW1 ([facility]) [address] [address] 05/28/2019 12:00:00 AM EST eCW1 ([facility]) [address] [address] 05/08/2019 12:00:00 AM EST eCW1 ([facility]) [address] [address] 05/07/2019 12:00:00 AM EST eCW1 ([facility]) [address] [address] 04/24/2019 12:00:00 AM EST eCW1 ([facility]) Medications Medication Brand Name Start Date [...] AT BEDTIME SOLD: 05/17/2020 [facility] [place] UNK 05/13/2020 12:00:00 AM EST active [place] eCW1 ([facility]) Tresiba FlexTouch 200 UNIT/ML Tresiba FlexTouch 200 UNIT/ML 05/13/2020 12:00:00 AM EST active Tresiba FlexTouch 200 UNIT/ML eCW1 ([facility]) Tresiba FlexTouch 200 UNIT/ML Tresiba FlexTouch 200 UNIT/ML 05/13/2020 12:00:00 AM EST active Tresiba FlexTouch 200 UNIT/ML eCW1 ([facility]) Tresiba FlexTouch 200 UNIT/ML Tresiba FlexTouch 200 UNIT/ML 05/13/2020 12:00:00 AM EST active Tresiba FlexTouch 200 UNIT/ML eCW1 ([facility]) 31 gauge x 3/16" 05/13/2020 12:00:00 AM EST needle 30 USE DIRECTED ONCE DAILY USE DIRECTED ONCE DAILY SOLD: 06/16/2020 [facility] [place] UNK 05/13/2020 12:00:00 AM EST active [place] eCW1 ([facility]) Tresiba FlexTouch 200 UNIT/ML Tresiba FlexTouch 200 UNIT/ML 05/13/2020 12:00:00 AM EST active Tresiba FlexTouch 200 UNIT/ML eCW1 ([facility]) [place] UNK 05/13/2020 12:00:00 AM EST active [place] eCW1 ([facility]) [place] UNK 05/13/2020 12:00:00 AM EST active [place] eCW1 ([facility]) [place] UNK 05/13/2020 12:00:00 AM EST active [place] eCW1 ([facility]) [place] UNK 05/13/2020 12:00:00 AM EST active [place] eCW1 ([facility]) Tresiba FlexTouch 200 UNIT/ML Tresiba FlexTouch 200 UNIT/ML 05/13/2020 12:00:00 AM EST active Tresiba FlexTouch 200 UNIT/ML eCW1 ([facility]) [place] UNK 05/13/2020 12:00:00 AM EST active [place] eCW1 ([facility]) Tresiba FlexTouch 200 UNIT/ML Tresiba FlexTouch 200 UNIT/ML 05/13/2020 12:00:00 AM EST active Tresiba FlexTouch 200 UNIT/ML eCW1 ([facility]) Tresiba FlexTouch 200 UNIT/ML Tresiba FlexTouch 200 UNIT/ML 05/13/2020 12:00:00 AM EST active Tresiba FlexTouch 200 UNIT/ML eCW1 ([facility]) 31 gauge x 3/16" 05/13/2020 12:00:00 [...] {tablet} active Torsemide 2 0 MG eCW1 ([facility]) torsemide 10 MG Oral Tablet Torsemide 10 MG Torsemide 10 MG 02/17/2020 12:00:00 AM EDT 1.0 {tablet} active Torsemide 1 0 MG eCW1 ([facility]) 10 mg 02/17/2020 12:00:00 AM EDT tablet 30 TAKE ONE TABLET BY MOUTH EVERY DAY TAKE ONE TABLET BY MOUTH EVERY DAY SOLD: 02/17/2020 [facility] torsemide 10 MG Oral Tablet Torsemide 10 MG Torsemide 10 MG 02/17/2020 12:00:00 AM EDT 1.0 {tablet} active Torsemide 1 0 MG eCW1 ([facility]) torsemide 20 MG Oral Tablet Torsemide 20 MG Torsemide 20 MG 02/17/2020 12:00:00 AM EDT 1.0 {tablet} active Torsemide 2 0 MG eCW1 ([facility]) torsemide 10 MG Oral Tablet Torsemide 10 MG Torsemide 10 MG 02/17/2020 12:00:00 AM EDT 1.0 {tablet} active Torsemide 1 0 MG eCW1 ([facility]) torsemide 20 MG Oral Tablet Torsemide 20 MG Torsemide 20 MG 02/17/2020 12:00:00 AM EDT 1.0 {tablet} active Torsemide 2 0 MG eCW1 ([facility]) torsemide 10 MG Oral Tablet Torsemide 10 MG Torsemide 10 MG 02/17/2020 12:00:00 AM EDT 1.0 {tablet} active Torsemide 1 0 MG eCW1 ([facility]) torsemide 10 MG Oral Tablet Torsemide 10 MG Torsemide 10 MG 02/17/2020 12:00:00 AM EDT 1.0 {tablet} active Torsemide 1 0 MG eCW1 ([facility]) torsemide 10 MG Oral Tablet Torsemide 10 MG Torsemide 10 MG 02/17/2020 12:00:00 AM EDT 1.0 {tablet} active Torsemide 1 0 MG eCW1 ([facility]) 500 mg 02/06/2020 12:00:00 AM EDT tablet extended release 24 hr 30 TAKE 1 TABLET ONCE DAILY WITH EVENING MEAL TAKE 1 TABLET ONCE DAILY WITH EVENING MEAL SOLD: 02/08/2020 [facility] MetFORMIN HCl ER 500 MG MetFORMIN HCl ER 500 MG 02/03/2020 12:00:00 AM EDT 1.0 {tablet_with_evening_meal} active MetFO RMIN HCl ER 500 MG eCW1 ([facility]) MetFORMIN HCl ER 500 MG MetFORMIN HCl ER 500 MG 02/03/2020 12:00:00 AM EDT 1.0 {tablet_with_evening_meal} active MetFO RMIN HCl ER 500 MG eCW1 ([facility]) MetFORMIN HCl ER 500 MG MetFORMIN HCl ER 500 MG 02/03/2020 12:00:00 AM EDT 1.0 {tablet_with_evening_meal} active MetFO RMIN HCl ER 500 MG eCW1 ([facility]) MetFORMIN HCl ER 500 MG MetFORMIN HCl ER 500 MG 02/03/2020 12:00:00 AM EDT 1.0 {tablet_with_evening_meal} active MetFO RMIN HCl ER 500 MG eCW1 ([facility]) 24 HR Metformin hydrochloride 500 MG Ext ended Release Oral Tablet MetFORMIN HCl ER 500 MG MetFORMIN HCl ER 500 MG 02/03/2020 12:00:00 AM EDT 1.0 {tablet_with_evening_meal} active MetFO RMIN HCl ER 500 MG eCW1 ([facility]) MetFORMIN HCl ER 500 MG MetFORMIN HCl ER 500 MG 02/03/2020 12:00:00 AM EDT 1.0 {tablet_with_evening_meal} active MetFO RMIN HCl ER 500 MG eCW1 ([facility]) BLOOD SUGAR DIAGNOSTIC 01/23/2020 12:00:00 AM [...] AM EDT activ e Walker - eCW1 ([facility]) Walker - Walker - 11/19/2019 12:00:00 AM EDT activ e Walker - eCW1 ([facility]) Walker - Walker - 11/19/2019 12:00:00 AM EDT activ e Walker - eCW1 ([facility]) Walker - Walker - 11/19/2019 12:00:00 AM EDT activ e Walker - eCW1 ([facility]) Walker - Walker - 11/19/2019 12:00:00 AM EDT activ e Walker - eCW1 ([facility]) Walker - Walker - 11/19/2019 12:00:00 AM EDT activ e Walker - eCW1 ([facility]) Walker - Walker - 11/19/2019 12:00:00 AM EDT activ e Walker - eCW1 ([facility]) Walker - Walker - 11/19/2019 12:00:00 AM EDT activ e Walker - eCW1 ([facility]) Walker - Walker - 11/19/2019 12:00:00 AM EDT activ e Walker - eCW1 ([facility]) Walker - Walker - 11/19/2019 12:00:00 AM EDT activ e Walker - eCW1 ([facility]) Walker - Walker - 11/19/2019 12:00:00 AM EDT activ e Walker - eCW1 ([facility]) Walker - Walker - 11/19/2019 12:00:00 AM EDT activ e Walker - eCW1 ([facility]) Walker - Walker - 11/19/2019 12:00:00 AM EDT activ e Walker - eCW1 ([facility]) 75 mg 11/19/2019 12:00:00 AM EDT tablet 90 TAKE ONE TABLET BY MOUTH DAILY TAKE ONE TABLET BY MOUTH DAILY SOLD: 11/23/2019 [facility] Walker - Walker - 11/19/2019 12:00:00 AM EDT activ e Walker - eCW1 ([facility]) Walker - Walker - 11/19/2019 12:00:00 AM EDT activ e Walker - eCW1 ([facility]) Walker - Walker - 11/19/2019 12:00:00 AM EDT activ e Walker - eCW1 ([facility]) Walker - Walker - 11/19/2019 12:00:00 AM EDT activ e Walker - eCW1 ([facility]) 20 mg 11/19/2019 12:00:00 AM EDT tablet 90 TAKE ONE TABLET BY MOUTH EVERY MORNING TAKE ONE TABLET BY MOUTH EVERY MORNING SOLD: 11/23/2019 [facility] Walker - Walker - 11/19/2019 12:00:00 AM EDT activ e Walker - eCW1 ([facility]) glimepiride 2 MG Oral Tablet GLIMEPIRIDE 11/19/2019 12:00:00 AM EDT t ablet 360 TAKE TWO TABLETS BY MOUTH BEFORE MEALS TWO TIMES A DAY TAKE TWO TABLETS BY MOUTH BEFORE MEALS TWO TIMES A DAY SOLD: 11/23/2019 [facility] Walker - Walker - 11/19/2019 12:00:00 AM EDT activ e Walker - eCW1 ([facility]) Walker - Walker - 11/19/2019 12:00:00 AM EDT activ e Walker - eCW1 ([facility]) Walker - Walker - 11/19/2019 12:00:00 AM EDT activ e Walker - eCW1 ([facility]) Walker - Walker - 11/19/2019 12:00:00 AM EDT activ e Walker - eCW1 ([facility]) Walker - Walker - 11/19/2019 12:00:00 AM EDT activ e Walker - eCW1 ([facility]) Walker - Walker - 11/19/2019 12:00:00 AM EDT activ e Walker - eCW1 ([facility]) Walker - Walker - 11/19/2019 12:00:00 AM EDT activ e Walker - eCW1 ([facility]) BLOOD SUGAR DIAGNOSTIC 11/03/2019 12:00:00 AM [...] AM EDT active Januvia 50 MG eCW1 ([facility]) sitagliptin 50 MG Oral Tablet [Januvia] Januvia 50 MG Januvi a 50 MG 09/24/2019 12:00:00 AM EDT active Januvia 50 MG eCW1 ([facility]) sitagliptin 50 MG Oral Tablet [Januvia] Januvia 50 MG Januvi a 50 MG 09/24/2019 12:00:00 AM EDT active as direc barbara eCW1 ([facility]) sitagliptin 50 MG Oral Tablet [Januvia] Januvia 50 MG Januvi a 50 MG 09/24/2019 12:00:00 AM EDT active Januvia 50 MG eCW1 ([facility]) sitagliptin 50 MG Oral Tablet [Januvia] Januvia 50 MG Januvi a 50 MG 09/24/2019 12:00:00 AM EDT active Januvia 50 MG eCW1 ([facility]) sitagliptin 50 MG Oral Tablet [Januvia] Januvia 50 MG Januvi a 50 MG 09/24/2019 12:00:00 AM EDT active Januvia 50 MG eCW1 ([facility]) sitagliptin 50 MG Oral Tablet [Januvia] Januvia 50 MG Januvi a 50 MG 09/24/2019 12:00:00 AM EDT active Januvia 50 MG eCW1 ([facility]) glimepiride 2 MG Oral Tablet GLIMEPIRIDE [...] act jasen Fluticasone Propionate 50 MCG/ACT eCW1 ([facility]) Fluticasone Propionate 50 MCG/ACT Fluticasone Propionate 50 MCG/ACT 09/08/2019 12:00:00 AM EDT active 2 sprays in each nostril eCW1 ([facility]) Fluticasone Propionate 50 MCG/ACT Fluticasone Propionate 50 MCG/ACT 09/08/2019 12:00:00 AM EDT 2.0 {sprays_in_each_nostril} act jasen Fluticasone Propionate 50 MCG/ACT eCW1 ([facility]) Fluticasone Propionate 50 MCG/ACT Fluticasone Propionate 50 MCG/ACT 09/08/2019 12:00:00 AM EDT 2.0 {sprays_in_each_nostril} act jasen Fluticasone Propionate 50 MCG/ACT eCW1 ([facility]) Fluticasone Propionate 50 MCG/ACT Fluticasone Propionate 50 MCG/ACT 09/08/2019 12:00:00 AM EDT 2.0 {sprays_in_each_nostril} act jasen Fluticasone Propionate 50 MCG/ACT eCW1 ([facility]) Fluticasone Propionate 50 MCG/ACT Fluticasone Propionate 50 MCG/ACT 09/08/2019 12:00:00 AM EDT 2.0 {sprays_in_each_nostril} act jasen Fluticasone Propionate 50 MCG/ACT eCW1 ([facility]) Fluticasone Propionate 50 MCG/ACT Fluticasone Propionate 50 MCG/ACT 09/08/2019 12:00:00 AM EDT 2.0 {sprays_in_each_nostril} act jasen Fluticasone Propionate 50 MCG/ACT eCW1 ([facility]) Fluticasone Propionate 50 MCG/ACT Fluticasone Propionate 50 MCG/ACT 09/08/2019 12:00:00 AM EDT 2.0 {sprays_in_each_nostril} act jasen Fluticasone Propionate 50 MCG/ACT eCW1 ([facility]) Fluticasone Propionate 50 MCG/ACT Fluticasone Propionate 50 MCG/ACT 09/08/2019 12:00:00 AM EDT 2.0 {sprays_in_each_nostril} act jasen Fluticasone Propionate 50 MCG/ACT eCW1 ([facility]) Fluticasone Propionate 50 MCG/ACT Fluticasone Propionate 50 MCG/ACT 09/08/2019 12:00:00 AM EDT 2.0 {sprays_in_each_nostril} act jasen Fluticasone Propionate 50 MCG/ACT eCW1 ([facility]) Fluticasone Propionate 50 MCG/ACT Fluticasone Propionate 50 MCG/ACT 09/08/2019 12:00:00 AM EDT 2.0 {sprays_in_each_nostril} act jasen Fluticasone Propionate 50 MCG/ACT eCW1 ([facility]) Fluticasone Propionate 50 MCG/ACT Fluticasone Propionate 50 MCG/ACT 09/08/2019 12:00:00 AM EDT 2.0 {sprays_in_each_nostril} act jasen Fluticasone Propionate 50 MCG/ACT eCW1 ([facility]) Fluticasone Propionate 50 MCG/ACT Fluticasone Propionate 50 MCG/ACT 09/08/2019 12:00:00 AM EDT 2.0 {sprays_in_each_nostril} act jasen Fluticasone Propionate 50 MCG/ACT eCW1 ([facility]) Fluticasone Propionate 50 MCG/ACT Fluticasone Propionate 50 MCG/ACT 09/08/2019 12:00:00 AM EDT 2.0 {sprays_in_each_nostril} act jasen Fluticasone Propionate 50 MCG/ACT eCW1 ([facility]) Potassium Chloride 10 MEQ Extended Release [...] to katz Policy Katz Plan Information [employer] [id number] SP [id number] [employer] O [id number] S [id number] ANSI-Health Maintenance Organization ( O) [id number] ANSI-Medicare Part B [id number] ANSI-Medicare Part B [id number] ANSI-Medicare Part B [id number] ANSI-Medicare Part B [id number] ANSI-Health Maintenance Organization ( O) [id number] [facility] [id number] SP [id number] ANSI-Medicare Part B [id number] [facility] ( [facility]) [id number] ANSI-Medicare Part B [id number] ANSI-Health Maintenance Organization ( O) [id number] ANSI-Medicare Part B [id number] ANSI-Medicare Part B [id number] ANSI-Medicare Part B [id number] ANSI-Medicare Part B [id number] ANSI-Health Maintenance Organization ( O) [id number] ANSI-Health Maintenance Organization ( O) [id number] ANSI-Medicare Part B [id number] ANSI-Medicare Part B [id number] ANSI-Medicare Part B [id number] ANSI-Medicare Part B [id number] ANSI-Health Maintenance Organization ( O) [id number] ANSI-Medicare Part B [id number] ANSI-Medicare Part B [id number] ANSI-Health Maintenance Organization ( O) [id number] ANSI-Medicare Part B [id number] [facility] Organization ( O) [id number] ANSI-Medicare Part B [id number] ANSI-Medicare Part B [id number] ANSI-Health Maintenance Organization ( O) [id number] ANSI-Medicare Part B [id number] [employer] [id number] [place] [id number] ANSI-Medicare Part B [id number] ANSI-Medicare Part B [id number] ANSI-Medicare Part B [id number] ANSI-Medicare Part B [id number] ANSI-Medicare Part B [id number] ANSI-Medicare Part B [id number] ANSI-Medicare Part B [id number] ANSI-Medicare Part B [id number]-[id number]-[id number] ANSI-Medicare Part B [id number] ANSI-Medicare Part B [id number]-819u-[id number]-853f-[id number] ANSI-Medicare Part B [id number]-[id number]-[id number] 1x3x5z9i-[id number]-[id number] ANSI-Medicare Part B [id number] 6a39jr4d-v523-8p76-2199-33b1s2m5t40d ANSI-Medicare Part B [id number]-qk37-2qy7-[id number] ANSI-Medicare Part B [id number]-[id number] [id number]-2ap4-25v7-w738-bd2963gj5e40 ANSI-Medicare Part B [id number]-[id number] [id number]-[id number] ANSI-Medicare Part B [id number]-6ljk-2gfm-8v9aq4hh5e46 9sf807g3-2p2n-5fyg-4yvs-[id number] MEDICAID [id number] SP [id number] [employer]IVE [id number] SP [id number] MEDICARE [id number] SP [id number] A AMER PROG TOD[employer]YS OPTIONS G [id number] Self [id number] AMER PROG TOD[employer]YS OPTIONS G [id number] Self [id number] [facility] [id number] SP [id number] TOD[employer]YS OPTIONS/BRITISH O [id number] S [id number] MEDICARE [id number] SP [id number] A [employer] PROGRESSIVE [id number] SP [id number] MEDICARE [id number] SP [id number] A TOD[employer]YS OPTIONS [id number] SP [id number] MEDICARE [id number] SP [id number] A MEDICARE COMPLETE [id number] SP [id number] MEDICARE COMPLETE [id number] SP [id number] MEDICARE COMPLETE [id number] SP [id number] Problems, Conditions, and Diagnoses Code Display Name Description Problem Type Effective Dates Data Source(s) I82.511 [id number] 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 Problem 03/14/2020 12:00:00 AM EST eCW1 ([facility]) L98.491 [id number] Superficial ulcer of skin Problem 02/16/2020 12:00:00 AM EDT eCW1 ([facility]) I73.9 [id number] PVD (peripheral vascular disease) Problem 09/08/2019 12:00:00 AM EDT eCW1 ([facility]) J30.89 41565400 Non-seasonal allergic rhinitis, unspecifi ed trigger Problem 09/08/2019 12:00:00 AM EDT eCW1 ([facility]) I73.9 [id number] PVD (peripheral vascular disease) Problem 09/08/2019 12:00:00 AM EDT eCW1 ([facility]) J30.89 [id number] Non-seasonal allergic rhinitis, unspecifi ed trigger Problem 09/08/2019 12:00:00 AM EDT eCW1 ([facility]) Surgeries/Procedures Procedure Description Date Indications Data Source(s) Office Visit, Est Pt., Level 3 FC 09/08/2019 12:00:00 AM EDT eCW1 ([facility]) Office Visit, Est Pt., Level 4 PC 09/08/2019 12:00:00 AM EDT eCW1 ([facility]) Results ID Date Data Source NT-PRO BNP 02/17/2020 08:58:05 AM EDT eCW1 (Formerly [facility]) Name Value Range Interpretation Code Description Data Nichole rce(s) Supporting Document(s) 760 NT-PRO BNP eCW1 ([facility]) ID Date Data Source MAGNESIUM LEVEL 02/17/2020 08:49:08 AM EDT eCW1 (Formerly [facility]) Name Value Range Interpretation Code Description Data Nichole rce(s) Supporting Document(s) 1.9 MAGNESIUM LEVEL eCW1 ([facility]) ID Date Data Source Comprehensive Metabolic Profile (CMP) 02/17/2020 08:49:03 AM EDT eCW1 ([facility]) Name Value Range Interpretation Code Description Data Nichole rce(s) Supporting Document(s) > 60.0 GLOMERULAR FILTRATION RATE eCW 1 ([facility]) 20 BLOOD UREA NITROGEN eCW1 [facility]) 151 GLUCOSE, FASTING eCW1 ([facility]) 1.18 CREATININE FOR GFR eCW1 ([facility]) 101 CHLORIDE LEVEL eCW1 ([facility]) 141 SODIUM LEVEL eCW1 ([facility]) 35 CARBON DIOXIDE LEVEL eCW1 ([facility]) 4.6 POTASSIUM SERUM eCW1 ([facility]) 18 ALT/SGPT eCW1 ([facility]) 10 AST/SGOT eCW1 ([facility]) 9.1 CALCIUM LEVEL eCW1 ([facility]) 78 ALKALINE PHOSPHATASE eCW1 ([facility]) 3.4 ALBUMIN eCW1 ([facility]) 0.4 BILIRUBIN,TOTAL eCW1 ([facility]) 6.8 TOTAL PROTEIN eCW1 ([facility]) 1.0 ALBUMIN/GLOBULIN RATIO eCW1 ([facility]) Procedure Social History Code Duration Value Status Description Data Source(s ) Smoking 06/14/2020 12:00:00 AM EST Former Smoker completed Former Smoker eCW1 ([facility]) Smoking 06/02/2020 12:00:00 AM EST Former Smoker completed Former Smoker eCW1 ([facility]) Smoking 03/14/2020 12:00:00 AM EST Former Smoker completed Former Smoker eCW1 ([facility]) Smoking 03/14/2020 12:00:00 AM EST Former Smoker completed Former Smoker eCW1 ([facility]) Smoking 03/14/2020 12:00:00 AM EST Former Smoker completed Former Smoker eCW1 ([facility]) Smoking 03/14/2020 12:00:00 AM EST Former Smoker completed Former Smoker eCW1 ([facility]) Smoking 03/14/2020 12:00:00 AM EST Former Smoker completed Former Smoker eCW1 ([facility]) Smoking 03/14/2020 12:00:00 AM EST Former Smoker completed Former Smoker eCW1 ([facility]) Smoking 03/14/2020 12:00:00 AM EST Former Smoker completed Former Smoker eCW1 ([facility]) Smoking 03/14/2020 12:00:00 AM EST Former Smoker completed Former Smoker eCW1 ([facility]) Smoking 03/14/2020 12:00:00 AM EST Former Smoker completed Former Smoker eCW1 ([facility]) Smoking 03/14/2020 12:00:00 AM EST Former Smoker completed Former Smoker eCW1 ([facility]) Smoking 03/14/2020 12:00:00 AM EST Former Smoker completed Former Smoker eCW1 ([facility]) Smoking 03/03/2020 12:00:00 AM EST Former Smoker completed Former Smoker eCW1 ([facility]) Smoking 03/03/2020 12:00:00 AM EST Former Smoker completed Former Smoker eCW1 ([facility]) Smoking 03/03/2020 12:00:00 AM EST Former Smoker completed Former Smoker eCW1 ([facility]) Smoking 03/03/2020 12:00:00 AM EST Former Smoker completed Former Smoker eCW1 ([facility]) Smoking 03/03/2020 12:00:00 AM EST Former Smoker completed Former Smoker eCW1 ([facility]) Smoking 03/02/2020 12:00:00 AM EST Former Smoker completed Former Smoker eCW1 ([facility]) Smoking 02/16/2020 12:00:00 AM EDT Former Smoker completed Former Smoker eCW1 ([facility]) Smoking 02/16/2020 12:00:00 AM EDT Former Smoker completed Former Smoker eCW1 ([facility]) Smoking 02/16/2020 12:00:00 AM EDT Former Smoker completed Former Smoker eCW1 ([facility]) Smoking 09/08/2019 12:00:00 AM EDT Former Smoker completed Former Smoker eCW1 ([facility]) Smoking 09/08/2019 12:00:00 AM EDT Former Smoker completed Former Smoker eCW1 ([facility]) Smoking 09/08/2019 12:00:00 AM EDT Former Smoker completed Former Smoker eCW1 ([facility]) Smoking 09/08/2019 12:00:00 AM EDT Former Smoker completed Former Smoker eCW1 ([facility]) Vital Signs ID Date Data Source UNK Name Value Range Interpretation Code Description Data Source(s) Diastolic blood pressure 80 mm[Hg] 80 mm[Hg] eCW1 ([facility]) Systolic blood pressure 120 mm[Hg] 120 mm[Hg] e CW1 ([facility]) Body temperature 97.1 [degF] 97.1 [degF] eCW1 ( [facility]) Respiratory rate 20 /min 20 /min eCW1 ([facility]) Heart rate 119 /min 119 /min eCW1 ([facility]) Body mass index (BMI) [Ratio] 33.51 kg/m2 33.51 kg/m2 W1 ([facility]) Body height 73 [in_i] 73 [in_i] eCW1 ([facility]) Body weight 254 [lb_av] 254 [lb_av] eCW1 ([facility]) Diastolic blood pressure 82 mm[Hg] 82 mm[Hg] eCW1 ([facility]) Systolic blood pressure 138 mm[Hg] 138 mm[Hg] e CW1 ([facility]) Body temperature 96.8 [degF] 96.8 [degF] eCW1 ( [facility]) Respiratory rate 18 /min 18 /min eCW1 ([facility]) Heart rate 95 /min 95 /min eCW1 ([facility]) Body mass index (BMI) [Ratio] 34.22 kg/m2 34.22 kg/m2 W1 ([facility]) Body height 73 [in_i] 73 [in_i] eCW1 ([facility]) Body weight 259.4 [lb_av] 259.4 [lb_av] eCW1 ([facility]) Diastolic blood pressure 82 mm[Hg] 82 mm[Hg] eCW1 ([facility]) Systolic blood pressure 138 mm[Hg] 138 mm[Hg] e CW1 ([facility]) Body temperature 96.8 [degF] 96.8 [degF] eCW1 ( [facility]) Respiratory rate 18 /min 18 /min eCW1 ([facility]) Heart rate 95 /min 95 /min eCW1 ([facility]) Body mass index (BMI) [Ratio] 34.22 kg/m2 34.22 kg/m2 eCW1 ([facility]) Body height 73 [in_i] 73 [in_i] eCW1 ([facility]) Body weight 259.4 [lb_av] 259.4 [lb_av] eCW1 ([facility]) Diastolic blood pressure 88 mm[Hg] 88 mm[Hg] eCW1 ([facility]) Systolic blood pressure 132 mm[Hg] 132 mm[Hg] e CW1 ([facility]) Body temperature 97.7 [degF] 97.7 [degF] eCW1 ( [facility]) Respiratory rate 22 /min 22 /min eCW1 ([facility]) Heart rate 96 /min 96 /min eCW1 ([facility]) Body mass index (BMI) [Ratio] 34.83 kg/m2 34.83 kg/m2 eCW1 ([facility]) Body height 73 [in_i] 73 [in_i] eCW1 ([facility]) Body weight 264 [lb_av] 264 [lb_av] eCW1 ([facility]) Diastolic blood pressure 80 mm[Hg] 80 mm[Hg] eCW1 ([facility]) Systolic blood pressure 138 mm[Hg] 138 mm[Hg] e CW1 ([facility]) Body temperature 97.4 [degF] 97.4 [degF] eCW1 ( [facility]) Respiratory rate 18 /min 18 /min eCW1 ([facility]) Heart rate 91 /min 91 /min eCW1 ([facility]) Body mass index (BMI) [Ratio] 34.30 kg/m2 34.30 kg/m2 eCW1 ([facility]) Body height 73 [in_i] 73 [in_i] eCW1 ([facility]) Body weight 260 [lb_av] 260 [lb_av] eCW1 ([facility]) Diastolic blood pressure 80 mm[Hg] 80 mm[Hg] eCW1 ([facility]) Systolic blood pressure 138 mm[Hg] 138 mm[Hg] e CW1 ([facility]) Body temperature 97.4 [degF] 97.4 [degF] eCW1 ( [facility]) Respiratory rate 18 /min 18 /min eCW1 ([facility]) Heart rate 91 /min 91 /min eCW1 ([facility]) Body mass index (BMI) [Ratio] 32.98 kg/m2 32.98 kg/m2 eCW1 ([facility]) Body height 73 [in_i] 73 [in_i] eCW1 ([facility]) Body weight 250 [lb_av] 250 [lb_av] eCW1 ([facility]) Diastolic blood pressure 78 mm[Hg] 78 mm[Hg] eCW1 ([facility]) Systolic blood pressure 122 mm[Hg] 122 mm[Hg] e CW1 ([facility]) Body temperature 97.4 [degF] 97.4 [degF] eCW1 ( [facility]) Respiratory rate 18 /min 18 /min eCW1 ([facility]) Heart rate 111 /min 111 /min eCW1 ([facility]) Body mass index (BMI) [Ratio] 33.11 kg/m2 33.11 kg/m2 W1 ([facility]) Body height 73 [in_us] 73 [in_us] eCW1 ([facility]) Body weight Measured 251.0 [lb_av] 251.0 [lb_av ] eCW1 ([facility]) Patient Treatment Plan of Care Planned Activity Planned Date Details Description Data Source (s) Tresiba FlexTouch 200 UNIT/ML 05/13/2020 12:00:00 AM EST eCW1 ([facility]) [place] 05/13/2020 12:00:00 AM EST e CW1 ([facility]) Tresiba FlexTouch 200 UNIT/ML 05/13/2020 12:00:00 AM EST eCW1 ([facility]) [place] 05/13/2020 12:00:00 AM EST e CW1 ([facility]) Tresiba FlexTouch 200 UNIT/ML 05/13/2020 12:00:00 AM EST eCW1 ([facility]) [place] 05/13/2020 12:00:00 AM EST e CW1 ([facility]) Tresiba FlexTouch 200 UNIT/ML 05/13/2020 12:00:00 AM EST eCW1 ([facility]) [place] 05/13/2020 12:00:00 AM EST e CW1 ([facility]) Tresiba FlexTouch 200 UNIT/ML 05/13/2020 12:00:00 AM EST eCW1 ([facility]) Tresiba FlexTouch 200 UNIT/ML 05/13/2020 12:00:00 AM EST eCW1 ([facility]) [place] 05/13/2020 12:00:00 AM EST e CW1 ([facility]) torsemide 20 MG Oral Tablet 02/17/2020 12:00:00 AM EDT eCW1 ([facility]) torsemide 20 MG Oral Tablet 02/17/2020 12:00:00 AM EDT eCW1 ([facility]) torsemide 20 MG Oral Tablet 02/17/2020 12:00:00 AM EDT eCW1 ([facility]) torsemide 10 MG Oral Tablet 02/17/2020 12:00:00 AM EDT eCW1 ([facility]) torsemide 10 MG Oral Tablet 02/17/2020 12:00:00 AM EDT eCW1 ([facility]) torsemide 10 MG Oral Tablet 02/17/2020 12:00:00 AM EDT eCW1 ([facility]) MetFORMIN HCl ER 500 MG 02/03/2020 12:00:00 AM EDT eCW1 ([facility]) MetFORMIN HCl ER 500 MG 02/03/2020 12:00:00 AM EDT eCW1 ([facility]) MetFORMIN HCl ER 500 MG 02/03/2020 12:00:00 AM EDT eCW1 ([facility]) MetFORMIN HCl ER 500 MG 02/03/2020 12:00:00 AM EDT eCW1 ([facility]) Walker - 11/19/2019 12:00:00 AM EDT e CW1 ([facility]) [place] - 11/19/2019 12:00:00 AM EDT e CW1 ([facility]) [place] - 11/19/2019 12:00:00 AM EDT e CW1 ([facility]) sitagliptin 50 MG Oral Tablet [Januvia] 09/24/2019 12:00:00 AM EDT eCW1 ([facility]) sitagliptin 50 MG Oral Tablet [Januvia] 09/24/2019 12:00:00 AM EDT eCW1 ([facility]) sitagliptin 50 MG Oral Tablet [Januvia] 09/24/2019 12:00:00 AM EDT eCW1 ([facility]) sitagliptin 50 MG Oral Tablet [Januvia] 09/24/2019 12:00:00 AM EDT eCW1 ([facility]) sitagliptin 50 MG Oral Tablet [Januvia] 09/24/2019 12:00:00 AM EDT eCW1 ([facility]) Fluticasone Propionate 50 MCG/ACT 09/08/2019 12:00:00 AM EDT eCW1 ([facility]) Fluticasone Propionate 50 MCG/ACT 09/08/2019 12:00:00 AM EDT eCW1 ([facility]) Fluticasone Propionate 50 MCG/ACT 09/08/2019 12:00:00 AM EDT eCW1 ([facility]) Fluticasone Propionate 50 MCG/ACT 09/08/2019 12:00:00 AM EDT eCW1 ([facility]) Fluticasone Propionate 50 MCG/ACT 09/08/2019 12:00:00 AM EDT eCW1 ([facility])
--- NOTE | 2020-06-22 07:53 | ECGEPIP ---
[facility] - ED Test Date: 2020-06-22 Pat Name: INA SORIANO Department: Room: - Gender: Male [employer]: brian : [id number] Requested By: KENN Kinsey Order Number: [id number] Reading MD: Kenn Caldwell Measurements Intervals [place] Rate: 111 P: AL: QRS: -28 QRSD: 88 T: -29 QT: 336 QTc: 456 Interpretive Statements Undetermined rhythm Low voltage QRS unable to interpret rhythm strip - repeat as clinically indicated Electronically Signed on 06-22-2020 7:52:55 EST by Kenn Caldwell
[2020-06-22] MEDS ORDERED: D31000TA2 PO (08:01)
[2020-06-22] MEDS ORDERED: FLUTISP NARES (08:01)
[2020-06-22] MEDS ORDERED: GLIM4TAB5 PO (08:01)
[2020-06-22] MEDS ORDERED: TRES1INJ SQ (08:01)
[2020-06-22 08:13] LABS: RSV AMPLIFICATION NEGATIVE (NEGATIVE)
[2020-06-22] MEDS ORDERED: ASPIRIN 81 MG CHEW TABLET PO SCH (09:00)
[2020-06-22] MEDS ORDERED: ENOXAPARIN 40MG/0.4ML SYRINGE (J1650 PER 10MG) SC SCH (09:00)
[2020-06-22 09:10] LABS: CHOLESTEROL RISK RATIO 2.396 (<5)
--- NOTE | 2020-06-22 11:08 | REP ---
INDICATION: CVA COMPARISON: 11/07/2016. TECHNIQUE: Real-time ultrasound evaluation and duplex Doppler interrogation of the extracranial carotid vasculature is performed. FINDINGS: There is mild plaquing and narrowing in both carotid bulbs extending into the internal and external carotid arteries. Luminal narrowing is less than 50%. There is no evidence of hemodynamically significant stenosis of either internal carotid artery. Normal flow velocities are seen. The vertebral arteries could not be visualized. RIGHT LEFT Peak systolic velocity ICA 41.5 cm/s 114.1 cm/s End diastolic velocity ICA 10.2 cm/s 34.6 cm/s Peak systolic velocity CCA 69.9 cm/s 67.7cm/s Peak systolic velocity ECA 39.2 cm/s 42.6 cm/s ICA/CCA ratio 0.59 1.69 IMPRESSION: Bilateral luminal narrowing of the internal carotid arteries less than 50%. No evidence of hemodynamically significant stenosis. <Electronically signed by Parish Barros > 06/22/20 1104
--- NOTE | 2020-06-22 11:26 | REPVR ---
PROCEDURE INFORMATION: Exam: MR Head Without Contrast Exam date and time: 06/22/2020 10:42 AM Age: 85 years old Clinical indication: Altered mental status/memory loss; Confusion or disorientation; Patient HX: AMS, confusion; Additional info: CVA TECHNIQUE: Imaging protocol: MR of the head without contrast. COMPARISON: CT Head without contrast 06/22/2020 4:38 AM FINDINGS: Brain: There is extensive high signal abnormality in the periventricular white matter and centrum semiovale, best seen on the flair images. These changes are nonspecific but likely represent chronic small vessel ischemic change. There are chronic lacunar infarcts. There is moderate cerebral atrophy. Cerebral ventricles: Normal. No ventriculomegaly. Bones/joints: Unremarkable. Paranasal sinuses: Normal as visualized. No acute sinusitis. Mastoid air cells: Normal as visualized. No mastoid effusion. Orbital cavity: Unremarkable. Soft tissues: Unremarkable. IMPRESSION: 1. There is extensive high signal abnormality in the periventricular white matter and centrum semiovale, best seen on the flair images. These changes are nonspecific but likely represent chronic small vessel ischemic change. No acute infarct is identified. 2. There are chronic lacunar infarcts. 3. There is moderate cerebral atrophy. Electronically signed by: Roland Dunlap On 06/22/2020 11:26:36 AM
[2020-06-22 11:33] VITALS: BP 148/78
--- NOTE | 2020-06-22 11:57 | REPVR ---
PROCEDURE INFORMATION: Exam: MR Angiogram Head Without Contrast, Arteries Exam date and time: 06/22/2020 10:42 AM Age: 85 years old Clinical indication: Cognitive deficit; Altered mental status; Patient HX: AMS, confusion; Additional info: CVA TECHNIQUE: Imaging protocol: MR angiogram head without contrast. Exam focused on the arteries. 3D rendering (Not supervised by radiologist): MIP and/or 3D reconstructed images were created by the technologist. 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 Right middle cerebral artery: No occlusion or significant stenosis. No aneurysm. 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 Left internal carotid artery: Intracranial segment is patent with no significant stenosis. No aneurysm. Left middle cerebral artery: No occlusion or significant stenosis. No aneurysm. Left anterior cerebral artery: No occlusion or significant stenosis. No aneurysm. POSTERIOR CIRCULATION: Right vertebral artery: No occlusion or significant stenosis. No aneurysm. Left vertebral artery: The patient is left vertebral artery dominant. 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 Right posterior cerebral artery: There is a origin of the right posterior cerebral artery. Left posterior cerebral artery: No occlusion or significant stenosis. No aneurysm. IMPRESSION: 1. 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 Follow-up CTA is recommended. 2. There is a origin of the right posterior cerebral artery. 3. 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 4. 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 Electronically signed by: Roland Dunlap On 06/22/2020 11:58:02 AM
[2020-06-22] MEDS ORDERED: SLF 3 ML SYR IV PRN (12:00)
[2020-06-22] MEDS: ROSUVASTATIN 10 MG TAB (CRESTOR) PO SCH (13:13)
[2020-06-22] MEDS: SLF 3 ML SYR IV SCH ×2 (13:18→22:21)
[2020-06-22] MEDS ORDERED: FLUTICASONE PROP 0.05% NASAL SPRAY 16 GM (FLONASE) NARES PRN (13:20)
--- NOTE | 2020-06-22 14:23 | HPEPDOC ---
[facility] [place] Medical History & Physical Date of Admission Jun 22, 2020 Date of Service: Jun 22, 2020 Attending Physician: Malka Figueroa MD History and Physical CHIEF COMPLAINT: Altered mental status HISTORY OF PRESENT ILLNESS: Patient is an 85-year-old male with past medical history of hypertension, h yperlipidemia, diastolic CHF, MIHIR, GERD, hx of TIA/lacunar infarcts, history of prostate cancer who presented to [facility] ER eligibility worker on 06/22/2020 via EMS after his called 911 with concerns of the patient was altered from his baseline. Patient is a poor historian due to his altered mental status and majority of information was collected from the emergency room provider and notes. Per report, the patient awoke at 2:00 in the morning and she was afraid he was "having a diabetic problem". He was slurring his speech and was not making sense. He was last seen well at 22:00 on 06/21/2020. There was no mention of documented lightheadedness, dizziness, facial drooping, lower extremity or upper cavity weakness, chest pain, fevers, chills. The patient was brought to the emergency room for further evaluation. In the ER, vital signs showed blood pressure was uncontrolled at 775768/114, 95% on room air, temperature 99.2, heart rate 119, respiratory rate 18. The patient was noted to have expressive aphasia, would follow only some commands. Baseline not completely known at this time. There was no noted lower or upper extremity weakness, as patient was moving them in the bed. He was intermittently audible and comprehensible. On exam by myself, he was able to squeeze my hand and move his legs freely in bed; however, did not follow commands well. CT head:1. Age-appropriate, diffuse parenchymal volume loss, similar to the prior exam. 2. Left basal ganglia chronic lacunar infarct and low-attenuation in the white matter, likely due to chronic small vessel ischemic disease, and similar to the prior exams. 3. No evidence of acute infarct, hemorrhage, or mass lesion. Discussed case with Dr. Carpenter who recommended admission, neurological workup for CVA, treatment of hypertensive emergency, ruling out infectious causes of AMS. Note: I later spoke with his daughter Sara (HCP) in great detail. She states that his controls his medications, his daughter Sara helps with stuff around the house. He has a history of TIA's (last 2016) in the past and he has had confusion that has lasted for some time (hours but not days) that resolved on his own. She stated that he would repeat certain words over again in different conversations, similar to this hospitalization. REVIEW OF SYSTEMS: Unable to provide due to altered mental status, aphasia PAST MEDICAL HISTORY: Hx of "mini" seizures in the past DM type II History of prostate cancer s/p TURP in 2000 Hypertension GERD Hyperlipidemia MIHIR - refuses CPAP Bilateral knee osteoarthritis Lumbar DJD, multilevel spinal stenosis Erectile dysfunction Partial complex seizure disorder Diastolic CHF Gout PVD Chronic DVT BPH Sciatica PAST SURGICAL HISTORY: Prostate scraping with radiation 1995 FAMILY HISTORY: Daughter has seizures due to history of a brain infection SOCIAL HISTORY: Smoker: former Smoker (Quit 50 years ago) Alcohol: Denies Drugs: Denies Lives at home with his who has Alzheimer's dementia; they have home care workers in the house 19/11 ALLERGIES: Please see below. HOME MEDICATIONS: Please see below. PHYSICAL EXAMINATION: VS: Please see below CONSTITUTIONAL: No acute distress, resting comfortably, expressive aphasia EYES: PERRLA, EOM intact HENT, MOUTH: Normocephalic, atraumatic, moist mucous membranes NECK: SUPPLE, no JVD, no lymphadenopathy, no carotid bruit CV: Regular rate and rhythm, S1S2 normal, no murmurs/rubs/gallops RESPIRATORY: Clear to auscultation bilaterally, no rales/rhonchi/wheezes GI: BS positive in 4 quadrants, soft, nontender, nondistended, no rebound or guarding, no organomegaly : Deferred MUSCULOSKELETAL: Normal ROM. No cyanosis, clubbing, swelling, joint deformity, extremity edema INTEGUMENTARY: Intact, no rashes, no lesions, no erythema NEUROLOGIC: Cranial Nerves II-XII were unable to be tested due to patient not following commands , no focal deficits, strength in the upper extremities 5/5, reflexes in tact in all extremities LABORATORY DATA: Please see below MICRO: BCX x 2 sets pending UA ordered IMAGING: F/u MRI/MRA brain, US carotid arteries, echocardiogram CT head: 1. Age-appropriate, diffuse parenchymal volume loss, similar to the prior exam. 2. Left basal ganglia chronic lacunar infarct and low-attenuation in the white matter, likely due to chronic small vessel ischemic disease, and similar to the prior exams. 3. No evidence of acute infarct, hemorrhage, or mass lesion. ASSESSMENT: 85-year-old male with past medical history of hypertension, hyperlipidemia, diastolic CHF, MIHIR, GERD, hx of TIA/lacunar infarcts, hx of seizure disorder, history of prostate cancer admitted for neurological workup for AMS r/o CVA 2/2 to hypertensive emergency vs. other cause (infectious). PLAN: AMS r/o CVA 2/2 to hypertensive emergency vs. other cause (infectious) -Baseline he is AAOx3, lives independently with his - Currently far from baseline cognitively -Hx of seizures (no longer on medications), TIA/CVA with lacunar infarcts seen on CT head above. Also cannot r/o infectious cause (i.e. UTI, etc) -WBC wnl, afebrile -No focal deficits; however, expressive aphasia, follows some commands, perseverates at times- all similar symptoms per daughter when he had his TIA in past. -Bedside speech evaluation: level 1, thin liquids, crushed meds . Recommending additional speech therapy for aphasia -Case discussed with Dr. Boland in detail. -BP control below -F/u UA, BCx, MRI/MRA brain, echocardiogram, US carotid arteries, EEG -For now c/w ASA, statin, neuro checks Hypertensive emergency -Hx of HTN -BP 730256/114, not given anything in ER -Currently improving slowly without -F/u scans, if neg for stroke, restart home meds. If positive, allow permissive HTN 150-160 mmHg systolic -May add hydralazine PRN if needed for systolic BP >180 mmHg DM type II -recent diagnosis by PCP per family -F/u HbA1c -Holding Po meds, on ISS, FS AC/HS, consistent carb diet per recommendations of speech HLD -statin ALEXI -C/w ferrous sulfate Hypokalemia, chronic -C/w home supplement MIHIR -Noncompliant with home CPAP Diastolic CHF -Not currently in exacerbation -Cw torsemide DJD (lumbar), spinal stenosis, chronic back pain -Tylenol PRN Hx of DVT -Eliquis GI px -PPI DVT px -Eliquis DISPOSITION: F/u imaging above, r/o other causes of AMS. Lives alone with . Updated HCP, daughter Sara. PT/OT, speech therapy to see also. Vital Signs Vital Signs Date Time Temp Pulse Resp B/P (MAP) Pulse Ox O2 Delivery O2 Flow Rate FiO2 06/22/20 11:33 98.6 106 18 148/78 (101) 90 Room Air Laboratory Data Labs 24H Laboratory Tests 2 06/22/20 04:32: Immature Granulocyte % (Auto) 0.2, Neutrophils (%) (Auto) 65.8, Lymphocytes (%) (Auto) 20.0L, Monocytes (%) (Auto) 7.8, Eosinophils (%) (Auto) 5.8H, Basophils (%) (Auto) 0.4, Neutrophils # (Auto) 6.4, Lymphocytes # (Auto) 2.0, Monocytes # (Auto) 0.8, Eosinophils # (Auto) 0.6H, Basophils # (Auto) 0.0, Nucleated Red Blood Cells % (auto) 0.0, Prothrombin Time 13.9, Prothromb Time International Ratio 1.05, Activated Partial Thromboplast Time 28.1, Anion Gap 6L, Glomerular Filtration Rate > 60.0, Calcium Level 9.2, Total Bilirubin 0.3, Direct Bilirubin 0.1, Aspartate Amino Transf (AST/SGOT) 16, Alanine Aminotransferase (ALT/SGPT) 25, Alkaline Phosphatase 74, Total Creatine Kinase 82, Creatine Kinase MB 2.1, Creatine Kinase MB Relative Index 2.56, Troponin I < 0.02, Total Protein 7.2, Albumin 3.6, Albumin/Globulin Ratio 1.0 06/22/20 06:37: Coronavirus (COVID-19)(PCR) NEGATIVE, Influenza Type A (RT-PCR) NEGATIVE, Influenza Type B (RT-PCR) NEGATIVE, Respiratory Syncytial Virus (PCR) NEGATIVE 06/22/20 08:32: Triglycerides Level 65, Total Cholesterol 139, LDL Cholesterol 68, Non-HDL Cholesterol (LDL + VLDL) 81, Total HDL Cholesterol 58, Cholesterol/HDL Ratio 2.396 CBC/BMP Laboratory Tests 06/22/20 04:32 Microbiology Microbiology 06/22/20 Blood Culture, Received Pending 06/22/20 Blood Culture, Received Pending Home Medications Scheduled Allopurinol (Zyloprim) 300 Mg Tablet, 300 MG PO QHS Apixaban (Eliquis) 5 Mg Tablet, 5 MG PO BID Aspirin (Aspirin EC) 81 Mg Tablet.dr, 81 MG PO DAILY Cholecalciferol (Vitamin D3) (Vitamin D3) 1,000 Unit Tablet, 5,000 UNITS PO QHS Cyanocobalamin (Vitamin B-12) (Vitamin B-12) 1,000 Mcg Tablet, 1,000 MCG PO DAILY Ferrous Sulfate (Ferrous Sulfate) 325 Mg Tablet, 325 MG PO QHS Glimepiride (Glimepiride) 4 Mg Tablet, 4 MG PO BID Insulin Degludec (Tresiba Flextouch U-200) 200 Unit/1 Ml Insuln.pen, 10 UNIT SQ QHS Metformin HCl (Metformin HCl ER) 500 Mg Tab.er.24h, 500 MG PO BID Omeprazole (Omeprazole) 40 Mg Capsule.dr, 40 MG PO QHS Potassium Chloride (Potassium Chloride) 10 Meq Tab.er.prt, 10 MEQ PO BID Rosuvastatin Calcium (Rosuvastatin Calcium) 20 Mg Tablet, 20 MG PO QHS Torsemide (Torsemide) 20 Mg Tablet, 30 MG PO DAILY Scheduled PRN Fluticasone Propionate (Fluticasone Propionate) 16 Gm [place].susp, 2 SPRAY NARES DAILY PRN for ALLERGIES Allergies Coded Allergies: No Known Allergies (Verified , 10/10/04) A-FIB/CHADSVASC A-FIB History Current/History of A-Fib/PAF?: No Current PO Anticoag Therapy: Yes Age/Risk Factor Scoring CHADSVASC: CHADSVASC Response (Comments) Value Age Risk Factor Age >/= 75 years old 2 Gender Risk Factor Male 0 Hx of CHF Yes 1 Hx of HTN Yes 1 Hx of Stroke/TIA/or VTE Yes 2 Hx of Diabetes Yes 1 Hx of Vascular Disease Yes 1 Total 8 Treatment Treatment ordered: Apixaban Malka Figueroa MD Jun 22, 2020 14:22
[2020-06-22 15:04] LABS: HEMOGLOBIN A1c 7.3 %
[2020-06-22 16:00] VITALS: BP 128/56
[2020-06-22] MEDS: APIXABAN 5 MG TAB (ELIQUIS) PO SCH (18:19)
[2020-06-22 20:00] VITALS: BP 132/65
[2020-06-22] MEDS ORDERED: PANTOPRAZOLE 40MG VIAL (C9113 PER 1) IV SCH (21:00)
[2020-06-22] MEDS ORDERED: OMEPRAZOLE 20 MG CAP PO SCH (21:00)
[2020-06-22] MEDS ORDERED: POTASSIUM CHLORIDE 10 MEQ SR TABLET PO SCH (21:00)
[2020-06-22] MEDS ORDERED: FERROUS SULFATE 325MG TAB PO SCH (21:00)
[2020-06-22] MEDS: VITAMIN D 1,000 INTERNATIONAL UNITS TABLET PO SCH (22:17)
[2020-06-22] MEDS: allopurinoL 300 MG TAB PO SCH (22:18)
[2020-06-22] MEDS: POTASSIUM CHLORIDE 10% LIQ 20 MEQ/15 ML UDC PO SCH (22:21)
[2020-06-23] VITALS: BP 140/73
[2020-06-23] MEDS: FERROUS SULFATE 300MG/5ML UDC LIQUID PO SCH ×2 (00:24→21:37)
[2020-06-23 04:00] VITALS: BP 127/79
[2020-06-23 05:55] LABS: HEMATOCRIT 40.8 % (42.0-52.0); HEMOGLOBIN 13.2 g/dl (13.5-17.5); MEAN CORPUSCULAR HEMOGLOBIN 31.7 pg (27.0-33.0); MEAN CORPUSCULAR HGB CONC 32.4 g/dl (32.0-36.5); MEAN CORPUSCULAR VOLUME 98.1 fl (80.0-96.0); PLATELET COUNT, AUTOMATED 223 10^3/uL (150-450); RED BLOOD COUNT 4.16 10^6/uL (4.30-6.10); WHITE BLOOD COUNT 6.4 10^3/uL (4.0-10.0)
[2020-06-23] MEDS: SLF 3 ML SYR IV SCH ×3 (06:08→21:37)
[2020-06-23 06:25] LABS: ALBUMIN 2.9 GM/DL (3.2-5.2); ALT/SGPT 21 U/L (12-78); BILIRUBIN,TOTAL 0.5 MG/DL (0.2-1.0); BLOOD UREA NITROGEN 17 MG/DL (7-18); CALCIUM LEVEL 8.6 MG/DL (8.8-10.2); CARBON DIOXIDE LEVEL 34 MEQ/L (21-32); CHLORIDE LEVEL 106 MEQ/L (98-107); CREATININE FOR GFR 0.87 MG/DL (0.70-1.30); GLOMERULAR FILTRATION RATE > 60.0 (>35); GLUCOSE, FASTING 138 MG/DL (70-100); POTASSIUM SERUM 3.9 MEQ/L (3.5-5.1); SODIUM LEVEL 143 MEQ/L (136-145); TOTAL PROTEIN 5.8 GM/DL (6.4-8.2)
[2020-06-23 07:20] VITALS: BP 144/79
[2020-06-23] MEDS: HumaLOG INSULIN (NovoLOG) PER UNIT SC SCH ×4 (08:17→21:00)
[2020-06-23] MEDS: POTASSIUM CHLORIDE 10% LIQ 20 MEQ/15 ML UDC PO SCH ×2 (08:17→21:37)
[2020-06-23] MEDS: APIXABAN 5 MG TAB (ELIQUIS) PO SCH ×2 (08:18→21:34)
[2020-06-23] MEDS: ROSUVASTATIN 10 MG TAB (CRESTOR) PO SCH (08:19)
[2020-06-23] MEDS ORDERED: ASPIRIN 81 MG ENTERIC TAB PO SCH (09:00)
[2020-06-23 13:05] VITALS: BP 131/82
--- NOTE | 2020-06-23 15:08 | ECHO ---
DATE OF PROCEDURE: 06/22/2020 Age: 85 Gender: Male REFERRING PHYSICIAN: Malka Figueroa M.D. PATIENT LOCATION: Room 3217 REASON FOR STUDY: Cerebrovascular accident (CVA). MEASUREMENTS: IVS 1.1 cm LV 5.3 cm LVPW 1.2 cm LA 3.0 cm Aorta 3.7 cm RV 4.0 cm DOPPLER MEASUREMENT Peak velocity across the aortic valve 1.9 m/s Peak velocity across the LVOT 1.1 m/s Peak gradient across the aortic valve 14 mmHg Mean gradient across the aortic valve 8 mmHg Mitral E 0.9 Mitral A 1.3 with a ratio of 0.7 2D COMMENTS: 1. Normal left ventricular size, wall thickness, and normal global left ventricular systolic function. The estimated left ventricular systolic ejection fraction is 60% to 65%. 2. Normal left atrium. Normal right atrium and right ventricle. A sigmoid appearance of the basal ventricular septum was noted, a benign finding. 3. Borderline enlarged aortic root at 3.7 cm. 4. The atrial septum appeared to be normal without evidence of defect or shunt. 5. No pericardial effusion seen. 6. Mildly calcified aortic valve with normal leaflet excursion. Mildly calcified mitral annulus with normal anterior mitral valve leaflet motion. Normal tricuspid valve and pulmonic valve. The proximal pulmonary artery branches were not well visualized. Doppler detects trace aortic regurgitation, trace pulmonic regurgitation. IMPRESSION: 1. Normal global left ventricular systolic function. Not mentioned above, there are some features of grade 1 left ventricular diastolic dysfunction manifested by abnormal relaxation. 2. Aortic valve sclerosis with trace aortic regurgitation and trivial aortic stenosis. 3. Isolated mitral annular calcification without evidence of significant mitral regurgitation or significant mitral stenosis. 4. Trace pulmonic regurgitation. 5. A sigmoid appearance of the basal ventricular septum was noted, a benign finding. 6. A bubble study was done, but was limited; however, there was no evidence of passage of bubbles from the right heart chambers to the left. [facility]
[2020-06-23 16:00] VITALS: BP 162/85
--- NOTE | 2020-06-23 16:30 | IPNPDOC ---
Date Seen The patient was seen on 06/23/20. Progress Note SUBJECTIVE: AAOx 3 today, EEG was done this AM. Per PT, unsteady on feet and almost lost balance. Will need stairs to be attempted. Patient wanted to leave AMA but later changed his mind. Have been trying to get UA, unable. BP not ideal, resumed torsemide- if still high consider starting second agent for BP. Denies chest pain, shortness of breath, fevers, chills. OBJECTIVE PHYSICAL EXAMINATION: VS: Please see below CONSTITUTIONAL: No acute distress, sitting up at bedside chair, AAOx 3 EYES: PERRLA, EOM intact HENT, MOUTH: Normocephalic, atraumatic, moist mucous membranes NECK: SUPPLE, no JVD, no lymphadenopathy, no carotid bruit CV: Regular rate and rhythm, S1S2 normal, no murmurs/rubs/gallops RESPIRATORY: Clear to auscultation bilaterally, no rales/rhonchi/wheezes GI: BS positive in 4 quadrants, soft, nontender, nondistended, no rebound or guarding, no organomegaly : Deferred MUSCULOSKELETAL: Normal ROM. No cyanosis, clubbing, swelling, joint deformity, extremity edema INTEGUMENTARY: Intact, no rashes, no lesions, no erythema NEUROLOGIC: Cranial Nerves II-XII intact, no focal deficits, strength in the upper extremities 5/5, reflexes in tact in all extremities LABORATORY DATA: Please see below MICRO: BCX x 2 sets NG UA ordered IMAGING: MRI brain: 1. There is extensive high signal abnormality in the periventricular white matter and centrum semiovale, best seen on the flair images. These changes are nonspecific but likely represent chronic small vessel ischemic change. No acute infarct is identified. 2. There are chronic lacunar infarcts. 3. There is moderate cerebral atrophy. MRA brain: 1. 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 Follow-up CTA is recommended. 2. There is a origin of the right posterior cerebral artery. 3. 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 4. 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 US carotid arteries: Bilateral luminal narrowing of the internal carotid arteries less than 50%. No evidence of hemodynamically significant stenosis. Echocardiogram: EF 60-65% Normal global left ventricular systolic function. Not mentioned above, thereare some features of grade 1 left ventricular diastolic dysfunction manifested by abnormal relaxation. Aortic valve sclerosis with trace aortic regurgitation and trivial aortic stenosis. Isolated mitral annular calcification without evidence of significant mitralregurgitation or significant mitral stenosis. Trace pulmonic regurgitation. A sigmoid appearance of the basal ventricular septum was noted, a benign finding. A bubble study was done, but was limited; however, there was no evidence of passage of bubbles from the right heart chambers to the left. CT head: 1. Age-appropriate, diffuse parenchymal volume loss, similar to the prior exam. 2. Left basal ganglia chronic lacunar infarct and low-attenuation in the white matter, likely due to chronic small vessel ischemic disease, and similar to the prior exams. 3. No evidence of acute infarct, hemorrhage, or mass lesion. ASSESSMENT: 85-year-old male with past medical history of hypertension, hyperlipidemia, diastolic CHF, MIHIR, GERD, hx of TIA/lacunar infarcts, hx of seizure disorder, history of prostate cancer admitted for neurological workup for AMS r/o CVA 2/2 to hypertensive urgency vs. other cause (infectious). PLAN: AMS likely 2/2 to hypertensive urgency vs. other cause (infectious) vs. neurological (hx of seizures) -He is currently back to baseline AAOx3 -Hx of seizures (no longer on medications), EEG done today -Hx of TIA/CVA with lacunar infarcts seen on CT head above. -Cannot r/o UTI, as we have not obtained urine yet -WBC wnl, afebrile -Expressive aphasia, perseveration resolved. -Bedside speech evaluation: level 1, thin liquids, crushed meds . Recommending additional speech therapy for aphasia -Case discussed with Dr. Boland in detail after admission. -BP control below -For now c/w ASA, statin -F/u EEG, likely as o/p HTN with resolved hypertensive urgency -Hx of HTN -BP 561128 mmHg systolic -Resuming torsemide today, f/u pressures closely. -May add hydralazine PRN if needed for systolic BP >180 mmHg DM type II -recent diagnosis by PCP per family -HbA1c 7.3 -Holding Po meds, on ISS, FS AC/HS, consistent carb diet per recommendations of speech HLD -statin ALEXI -C/w ferrous sulfate Hypokalemia, chronic -C/w home supplement Hx of seizures -No documented seizures this stay -Not on antiseizure meds -Will need PCP to f/u EEG MIHIR -Noncompliant with home CPAP Diastolic CHF -Not currently in exacerbation -Cw torsemide DJD (lumbar), spinal stenosis, chronic back pain -Tylenol PRN Hx of DVT -Eliquis GI px -PPI DVT px -Eliquis DISPOSITION: PT: unsteady on feet today, would benefit from another day to work with them on stairs also. Plan is discharge home possibly with services. VS, I&O, 24H, Fishbone Vital Signs/I&O Vital Signs Date Time Temp Pulse Resp B/P (MAP) Pulse Ox O2 Delivery O2 Flow Rate FiO2 06/23/20 16:00 97.3 95 18 162/85 (110) 95 Room Air 06/23/20 00:00 2.0 06/22/20 20:00 95 I&O- Last 24 Hours up to 6 AM 06/23/20 06:00 Intake Total 300 ml Output Total 775 ml Balance -475 ml Laboratory Data 24H LABS Laboratory Tests 2 06/22/20 17:04: Bedside Glucose (Misc Panel) 132H 06/22/20 19:46: Bedside Glucose (Misc Panel) 132H 06/23/20 05:23: Nucleated Red Blood Cells % (auto) 0.0, Anion Gap 3L, Glomerular Filtration Rate > 60.0, Calcium Level 8.6L, Total Bilirubin 0.5#, Aspartate Amino Transf (AST/SGOT) 18, Alanine Aminotransferase (ALT/SGPT) 21, Alkaline Phosphatase 60, Total Protein 5.8L, Albumin 2.9L, Albumin/Globulin Ratio 1.0 06/23/20 12:55: Bedside Glucose (Misc Panel) 117H CBC/BMP Laboratory Tests 06/23/20 05:23 Microbiology Microbiology 06/22/20 Blood Culture - Preliminary, Resulted No growth after 24 hours . All specim... 06/22/20 Blood Culture - Preliminary, Resulted No growth after 24 hours . All specim... Current Medications Current Medications Medications (Trade) Dose Ordered Sig/Helen Route PRN Reason Start Time Stop Time Status Last Admin Dose Admin Allopurinol (Zyloprim) 300 mg QHS PO 06/22/20 21:00 06/22/20 22:18 Apixaban (Eliquis) 5 mg BID PO 06/22/20 18:00 06/23/20 08:18 Aspirin (Aspirin Chewable) 81 mg DAILY PO 06/22/20 09:00 06/22/20 13:43 DC 06/22/20 13:13 Aspirin (Ecotrin) 81 mg DAILY PO 06/23/20 09:00 06/22/20 13:44 DC Dextrose (Dextrose 50%) 25 ml ASDIRECTED PRN IV SEE LABEL COMMENTS 06/22/20 07:45 Enoxaparin Sodium (Lovenox) 40 mg DAILY SC 06/22/20 09:00 06/22/20 13:43 DC 06/22/20 13:13 Ferrous Sulfate (Ferrous Sulfate) 300 mg QHS PO 06/22/20 21:00 06/23/20 00:24 Ferrous Sulfate (Ferrous Sulfate) 325 mg QHS PO 06/22/20 21:00 06/22/20 22:06 DC Fluticasone Propionate (Flonase 0.05% Nasal [place]) 2 spray DAILY PRN NARES ALLERGIES 06/22/20 13:20 Glucagon (Glucagon) 1 mg ASDIRECTED PRN SC SEE LABEL COMMENTS 06/22/20 07:45 Glucose (Glucose) 16 GM ASDIRECTED PRN PO SEE LABEL COMMENTS 06/22/20 07:45 Home Med (Med Rec Complete!) ASDIRECTED XX 06/22/20 08:15 06/22/20 08:08 DC Insulin Human Lispro (HumaLOG INSULIN) SEE PROTOCOL TABLE AC SC 06/22/20 17:30 06/23/20 13:02 Insulin Human Lispro (HumaLOG INSULIN) SEE PROTOCOL TABLE Q6H SC 06/22/20 06:00 06/22/20 14:11 DC Insulin Human Lispro (HumaLOG INSULIN) SEE PROTOCOL TABLE QHS SC 06/22/20 21:00 Omeprazole (PriLOSEC) 40 mg QHS PO 06/22/20 21:00 06/22/20 22:14 DC Pantoprazole Sodium (Protonix) 40 mg QHS IV 06/22/20 21:00 06/22/20 22:28 Potassium Chloride (Micro-K Extencaps) 10 meq BID PO 06/22/20 21:00 06/22/20 22:06 DC Potassium Chloride (Potassium Chloride Liquid) 10 meq BID PO 06/22/20 21:00 06/23/20 08:17 Rosuvastatin Calcium (Crestor) 20 mg DAILY PO 06/22/20 09:00 06/23/20 08:19 Sodium Chloride (Saline Lock Flush) 2 ml ASDIRECTED PRN IV SEE LABEL COMMENTS 06/22/20 12:00 Sodium Chloride (Saline Lock Flush) 2 ml SLF IV 06/22/20 14:00 06/23/20 13:02 Vitamin D (Vitamin D) 5,000 units QHS PO 06/22/20 21:00 06/22/20 22:17 Allergies Coded Allergies: No Known Allergies (Verified , 10/10/04) Malka Figueroa MD Jun 23, 2020 16:30
[2020-06-23 20:00] VITALS: BP 131/72
[2020-06-23] MEDS ORDERED: OMEPRAZOLE 20 MG CAP PO SCH (21:00)
[2020-06-23] MEDS: allopurinoL 300 MG TAB PO SCH (21:35)
[2020-06-23] MEDS: VITAMIN D 1,000 INTERNATIONAL UNITS TABLET PO SCH (21:37)
[2020-06-24] VITALS: BP 132/67
[2020-06-24 04:00] VITALS: BP 167/96
[2020-06-24 05:35] LABS: HEMATOCRIT 40.8 % (42.0-52.0); MEAN CORPUSCULAR HEMOGLOBIN 31.3 pg (27.0-33.0); MEAN CORPUSCULAR HGB CONC 31.9 g/dl (32.0-36.5); MEAN CORPUSCULAR VOLUME 98.1 fl (80.0-96.0); PLATELET COUNT, AUTOMATED 222 10^3/uL (150-450); RED BLOOD COUNT 4.16 10^6/uL (4.30-6.10); WHITE BLOOD COUNT 6.3 10^3/uL (4.0-10.0)
[2020-06-24 05:58] LABS: ALT/SGPT 24 U/L (12-78); BILIRUBIN,TOTAL 0.4 MG/DL (0.2-1.0); BLOOD UREA NITROGEN 15 MG/DL (7-18); CALCIUM LEVEL 8.4 MG/DL (8.8-10.2); CARBON DIOXIDE LEVEL 30 MEQ/L (21-32); CHLORIDE LEVEL 107 MEQ/L (98-107); CREATININE FOR GFR 0.86 MG/DL (0.70-1.30); GLOMERULAR FILTRATION RATE > 60.0 (>35); GLUCOSE, FASTING 145 MG/DL (70-100); POTASSIUM SERUM 3.9 MEQ/L (3.5-5.1); SODIUM LEVEL 143 MEQ/L (136-145); TOTAL PROTEIN 5.9 GM/DL (6.4-8.2)
[2020-06-24] MEDS: SLF 3 ML SYR IV SCH ×2 (06:23→13:33)
[2020-06-24 08:00] VITALS: BP 160/75
[2020-06-24] MEDS ORDERED: TORSEMIDE 10 MG TABLET PO SCH (09:00)
[2020-06-24] MEDS: ROSUVASTATIN 10 MG TAB (CRESTOR) PO SCH (09:08)
[2020-06-24] MEDS: APIXABAN 5 MG TAB (ELIQUIS) PO SCH (09:08)
[2020-06-24] MEDS: HumaLOG INSULIN (NovoLOG) PER UNIT SC SCH ×2 (09:09→12:02)
[2020-06-24] MEDS: POTASSIUM CHLORIDE 10% LIQ 20 MEQ/15 ML UDC PO SCH (09:09)
[2020-06-24 12:00] VITALS: BP 132/72
--- NOTE | 2020-06-24 17:24 | DS.PDOC ---
Discharge Summary General Date of Admission Jun 22, 2020 at 07:34 Date of Discharge 06/24/20 Attending Physician: Malka Figueroa MD Discharge Summary HISTORY OF PRESENT ILLNESS: Patient is an 85-year-old male with past medical history of hypertension, hyperlipidemia, diastolic CHF, MIHIR, GERD, hx of TIA/lacunar infarcts, history of prostate cancer who presented to [facility] ER compounder helper on 06/22/2020 via EMS after his called 911 with concerns of the patient was altered from his baseline. Patient is a poor historian due to his altered mental status and majority of information was collected from the emergency room provider and notes. Per report, the patient awoke at 2:00 in the morning and she was afraid he was "having a diabetic problem". He was slurring his speech and was not making sense. He was last seen well at 22:00 on 06/21/2020. There was no mention of documented lightheadedness, dizziness, facial drooping, lower extremity or upper cavity weakness, chest pain, fevers, chills. The patient was brought to the emergency room for further evaluation. In the ER, vital signs showed blood pressure was uncontrolled at 993002/[id number], 95% on room air, temperature 99.2, heart rate 119, respiratory rate 18. The patient was noted to have expressive aphasia, would follow only some commands. Baseline not completely known at this time. There was no noted lower or upper extremity weakness, as patient was moving them in the bed. He was intermittently audible and comprehensible. On exam by myself, he was able to squeeze my hand and move his legs freely in bed; however, did not follow commands well. CT head:1. Age-appropriate, diffuse parenchymal volume loss, similar to the prior exam. 2. Left basal ganglia chronic lacunar infarct and low-attenuation in the white matter, likely due to chronic small vessel ischemic disease, and similar to the prior exams. 3. No evidence of acute infarct, hemorrhage, or mass lesion. Discussed case with Dr. Carpenter who recommended admission, neurological workup for CVA, treatment of hypertensive emergency, ruling out infectious causes of AMS. Note: I later spoke with his daughter Sara (HCP) in great detail. She states that his controls his medications, his daughter Sara helps with stuff around the house. He has a history of TIA's (last 2016) in the past and he has had confusion that has lasted for some time (hours but not days) that resolved on his own. She stated that he would repeat certain words over again in different conversations, similar to this hospitalization. HOSPITAL COURSE: The next day after admission, patient had improved remarkably. UA neg, other infectious cause could not be identified. All Imaging neg for CVA. EEG was done;cady lopez, results are pending. He had no neurological deficits on neuro checks. He was evaluated by PT on hospital day 2 ;however, was found to be unsteady on his feet. On 06/24/20 it was decided to discharge home with PCP to f/u EEG results. It was likely his mental status change, speech issues were 2/2 to hypertensive urgency that was now resolved without additional treatment. patient states his BP is normally well controlled. Other chronic issues remained stable. At discharge, patient denied chest pain, shortness of breath, n/v/d, fevers, chills. PAST MEDICAL HISTORY: Hx of "mini" seizures in the past DM type II History of prostate cancer s/p TURP in 2000 Hypertension GERD Hyperlipidemia MIHIR - refuses CPAP Bilateral knee osteoarthritis Lumbar DJD, multilevel spinal stenosis Erectile dysfunction Partial complex seizure disorder Diastolic CHF Gout PVD Chronic DVT BPH Sciatica PAST SURGICAL HISTORY: Prostate scraping with radiation 1995 FAMILY HISTORY: Daughter has seizures due to history of a brain infection SOCIAL HISTORY: Smoker: former Smoker (Quit 50 years ago) Alcohol: Denies Drugs: Denies Lives at home with his who has Alzheimer's dementia; they have home care workers in the house 19/11 DISCHARGE MEDS: Please see below PHYSICAL EXAMINATION: VS: Please see below CONSTITUTIONAL: No acute distress, sitting up at bedside chair, AAOx 3 EYES: PERRLA, EOM intact HENT, MOUTH: Normocephalic, atraumatic, moist mucous membranes NECK: SUPPLE, no JVD, no lymphadenopathy, no carotid bruit CV: Regular rate and rhythm, S1S2 normal, no murmurs/rubs/gallops RESPIRATORY: Clear to auscultation bilaterally, no rales/rhonchi/wheezes GI: BS positive in 4 quadrants, soft, nontender, nondistended, no rebound or guarding, no organomegaly : Deferred MUSCULOSKELETAL: Normal ROM. No cyanosis, clubbing, swelling, joint deformity, extremity edema INTEGUMENTARY: Intact, no rashes, no lesions, no erythema NEUROLOGIC: Cranial Nerves II-XII intact, no focal deficits, strength in the upper extremities 5/5, reflexes in tact in all extremities LABORATORY DATA: Please see below MICRO: BCX x 2 sets NG UA NEG IMAGING: MRI brain: 1. There is extensive high signal abnormality in the periventricular white matter and centrum semiovale, best seen on the flair images. These changes are nonspecific but likely represent chronic small vessel ischemic change. No acute infarct is identified. 2. There are chronic lacunar infarcts. 3. There is moderate cerebral atrophy. MRA brain: 1. 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 Follow-up CTA is recommended. 2. There is a origin of the right posterior cerebral artery. 3. 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 4. 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 US carotid arteries: Bilateral luminal narrowing of the internal carotid arteries less than 50%. No evidence of hemodynamically significant stenosis. Echocardiogram: EF 60-65% Normal global left ventricular systolic function. Not mentioned above, thereare some features of grade 1 left ventricular diastolic dysfunction manifested by abnormal relaxation. Aortic valve sclerosis with trace aortic regurgitation and trivial aortic stenosis. Isolated mitral annular calcification without evidence of significant mitralregurgitation or significant mitral stenosis. Trace pulmonic regurgitation. A sigmoid appearance of the basal ventricular septum was noted, a benign finding. A bubble study was done, but was limited; however, there was no evidence of passage of bubbles from the right heart chambers to the left. CT head: 1. Age-appropriate, diffuse parenchymal volume loss, similar to the prior exam. 2. Left basal ganglia chronic lacunar infarct and low-attenuation in the white matter, likely due to chronic small vessel ischemic disease, and similar to the prior exams. 3. No evidence of acute infarct, hemorrhage, or mass lesion. ASSESSMENT: 85-year-old male with past medical history of hypertension, hyperlipidemia, diastolic CHF, MIHIR, GERD, hx of TIA/lacunar infarcts, hx of seizure disorder, history of prostate cancer admitted for neurological workup for AMS r/o CVA 2/2 to hypertensive urgency vs. other cause (infectious). PLAN: AMS, speech changes likely 2/2 to hypertensive urgency -Cannot completely r/o seizures; however, suspicion remains very low. EEG re sults are pending -He is currently back to baseline AAOx3 -WBC wnl, afebrile -Expressive aphasia, perseveration resolved. -Case discussed with Dr. Boland in detail after admission. -BP control below -For now c/w ASA, statin -F/u EEG by PCP as o/p HTN with resolved hypertensive urgency -Hx of HTN -BP 269834 mmHg systolic -C/w torsemide today, f/u pressures closely as o/p DM type II -recent diagnosis by PCP per family -HbA1c 7.3 -C/w PO meds, FS AC/HS, consistent carb diet per recommendations of speech HLD -statin ALEXI -C/w ferrous sulfate Hypokalemia, chronic -C/w home supplement Hx of seizures -No documented seizures this stay -Not on antiseizure meds -Will need PCP to f/u EEG MIHIR -Noncompliant with home CPAP Diastolic CHF -Not currently in exacerbation -C/w torsemide DJD (lumbar), spinal stenosis, chronic back pain -Tylenol PRN Hx of DVT -Eliquis GI px -PPI DISPOSITION: D/c home today with services for PT. F/u with PCP. TIME SPENT ON DISCHARGE: 35 minutes. Vital Signs/I&Os Vital Signs Date Time Temp Pulse Resp B/P (MAP) Pulse Ox O2 Delivery O2 Flow Rate FiO2 06/24/20 12:00 97.8 101 20 132/72 (92) 93 Room Air 06/23/20 00:00 2.0 06/22/20 20:00 95 I&O- Last 24 Hours up to 6 AM 06/24/20 06:00 Intake Total 840 ml Output Total 850 ml Balance -10 ml Laboratory Data Labs 24H Laboratory Tests 2 06/23/20 20:06: Bedside Glucose (Misc Panel) 129H 06/24/20 04:49: Nucleated Red Blood Cells % (auto) 0.0, Anion Gap 6L, Glomerular Filtration Rate > 60.0, Calcium Level 8.4L, Total Bilirubin 0.4, Aspartate Amino Transf (AST/SGOT) 19, Alanine Aminotransferase (ALT/SGPT) 24, Alkaline Phosphatase 62, Total Protein 5.9L, Albumin 3.0L, Albumin/Globulin Ratio 1.0 06/24/20 11:28: Bedside Glucose (Misc Panel) 197H CBC/BMP Laboratory Tests 06/24/20 04:49 FSBS Laboratory Tests Test 06/23/20 20:06 06/24/20 11:28 Range/Units Bedside Glucose (Misc Panel) 129 197 83-110 MG/DL Microbiology Microbiology 06/22/20 Blood Culture - Preliminary, Resulted No Growth after 48 hours. All Specime... 06/22/20 Blood Culture - Preliminary, Resulted No Growth after 48 hours. All Specime... Discharge Medications Scheduled Allopurinol (Zyloprim) 300 Mg Tablet, 300 MG PO QHS, (Reported) Apixaban (Eliquis) 5 Mg Tablet, 5 MG PO BID, (Reported) Aspirin (Aspirin EC) 81 Mg Tablet.dr, 81 MG PO DAILY, (Reported) Cholecalciferol (Vitamin D3) (Vitamin D3) 1,000 Unit Tablet, 5,000 UNITS PO QHS, (Reported) Cyanocobalamin (Vitamin B-12) (Vitamin B-12) 1,000 Mcg Tablet, 1,000 MCG PO DAILY, (Reported) Ferrous Sulfate (Ferrous Sulfate) 325 Mg Tablet, 325 MG PO QHS, (Reported) Glimepiride (Glimepiride) 4 Mg Tablet, 4 MG PO BID, (Reported) Insulin Degludec (Tresiba Flextouch U-200) 200 Unit/1 Ml Insuln.pen, 10 UNIT SQ QHS, (Reported) Metformin HCl (Metformin HCl ER) 500 Mg Tab.er.24h, 500 MG PO BID, (Reported) Omeprazole (Omeprazole) 40 Mg Capsule.dr, 40 MG PO QHS, (Reported) Potassium Chloride (Potassium Chloride) 10 Meq Tab.er.prt, 10 MEQ PO BID, (Reported) Rosuvastatin Calcium (Rosuvastatin Calcium) 20 Mg Tablet, 20 MG PO QHS, (Reported) Torsemide (Torsemide) 20 Mg Tablet, 30 MG PO DAILY, (Reported) Scheduled PRN Fluticasone Propionate (Fluticasone Propionate) 16 Gm [place].susp, 2 SPRAY NARES DAILY PRN for ALLERGIES, (Reported) Allergies Coded Allergies: No Known Allergies (Verified , 10/10/04) Malka Figueroa MD Jun 24, 2020 17:24
--- NOTE | 2020-06-26 11:32 | EEG ---
ELECTROENCEPHALOGRAM DATE: 06/23/2020 DIAGNOSIS: Altered mental status. EEG# [id number]. REFERRING PHYSICIAN: Malka Figueroa M.D. HISTORY: Patient is an 85-year-old man with a history of hypertension, dyslipidemia, congestive heart failure, sleep apnea, TIA, and prostate cancer who was admitted to [facility] due to altered mental status, hypertensive emergency. This EEG was done to rule out epileptic potential. The patient was talking to his and struggled to form words. The patient was aware that he could not form words. His currently taking aspirin, Crestor, allopurinol, Eliquis, insulin, Protonix, etc. TECHNICAL DESCRIPTION: This digital EEG was recorded by 21-scalp, ear, and two EKG electrodes and was reviewed in bipolar and referential montages following reformatting in 10-20 international electrode placement system. INTERPRETATION: Patient was noted to be in awake and drowsy states during this EEG. Resting and awake background rhythm consisted of well-formed posterior dominant rhythm with anterior-posterior gradient comprising of 10 Hz alpha activity measuring 15-40 microvolts in amplitude, which was symmetric and reactive to eye opening. Attenuation of posterior dominant rhythm was seen during transition into drowsiness. Stage 1 and 2 sleep were reviewed and were symmetric bilaterally. Hyperventilation could not be performed. Photic stimulation remained unremarkable. EKG revealed sinus rhythm. No focal, lateralizing, or epileptiform abnormalities were seen. No relevant clinical activity was noted. CONCLUSION: This EEG in awake, drowsy states, stage 1 and 2 sleep is within normal limits.
== END 2020-06-24 15:27 | disposition home health service (06) | DRG 305 ==
LOC: M ED 04:06 → M ED INP 07:34 → M PCU 11:07
PROVIDERS: ADMIT Internal Medicine; ATTEND Internal Medicine
DX: I16.1 Hypertensive emergency (principal); I50.32 Chronic diastolic (congestive) heart failure; E78.5 Hyperlipidemia, unspecified; I11.0 Hypertensive heart disease with heart failure; G47.33 Obstructive sleep apnea (adult) (pediatric); K21.9 Gastro-esophageal reflux disease without esophagitis; F80.1 Expressive language disorder; M17.0 Bilateral primary osteoarthritis of knee; R41.82 Altered mental status, unspecified; M48.061 Spinal stenosis, lumbar region without neurogenic claudication; N52.9 Male erectile dysfunction, unspecified; M10.9 Gout, unspecified; E11.51 Type 2 diabetes mellitus with diabetic peripheral angiopathy without gangrene; N40.0 Benign prostatic hyperplasia without lower urinary tract symptoms; D50.9 Iron deficiency anemia, unspecified; Z20.822 Contact with and (suspected) exposure to COVID-19; Z87.891 Personal history of nicotine dependence; Z79.82 Long term (current) use of aspirin; Z79.84 Long term (current) use of oral hypoglycemic drugs; Z85.46 Personal history of malignant neoplasm of prostate; Z86.73 Personal history of transient ischemic attack (TIA), and cerebral infarction without residual deficits; Z79.899 Other long term (current) drug therapy

== ENCOUNTER → 2020-07-14 | Outpatient (REF) | payer MEDICARE ==
[~2020-07-14] MED LIST changes: +D31000TA2 PO; +FLUTISP NARES; +GLIM4TAB5 PO; +TRES1INJ SQ
[2020-07-14 10:46] LABS: BASO % 0.6 % (0.0-1.0); EOS # 0.4 10^3/uL (0.0-0.5); EOS % 6.2 % (0.0-3.0); HEMATOCRIT 44.3 % (42.0-52.0); HEMOGLOBIN 14.2 g/dl (13.5-17.5); LYMPH # 1.6 10^3/uL (1.5-5.0); LYMPH % 22.5 % (24.0-44.0); MEAN CORPUSCULAR HEMOGLOBIN 31.4 pg (27.0-33.0); MEAN CORPUSCULAR HGB CONC 32.1 g/dl (32.0-36.5); MONO # 0.5 10^3/uL (0.0-0.8); MONO % 7.7 % (2.0-8.0); NEUTROPHILS # 4.4 10^3/uL (1.5-8.5); NEUTROPHILS % 62.9 % (36.0-66.0); PLATELET COUNT, AUTOMATED 241 10^3/uL (150-450); RED BLOOD COUNT 4.52 10^6/uL (4.30-6.10)
[2020-07-14 11:22] LABS: ALBUMIN 3.4 GM/DL (3.2-5.2); ALT/SGPT 19 U/L (12-78); BILIRUBIN,TOTAL 0.4 MG/DL (0.2-1.0); BLOOD UREA NITROGEN 19 MG/DL (7-18); CALCIUM LEVEL 9.3 MG/DL (8.8-10.2); CARBON DIOXIDE LEVEL 34 MEQ/L (21-32); CHLORIDE LEVEL 105 MEQ/L (98-107); GLOMERULAR FILTRATION RATE > 60.0 (>35); GLUCOSE, FASTING 145 MG/DL (70-100); MAGNESIUM LEVEL 1.8 MG/DL (1.8-2.4); NT-PRO BNP 325 PG/ML (<450); POTASSIUM SERUM 4.8 MEQ/L (3.5-5.1); PTH INTACT 52.1 PG/ML (18.5-88.0); SODIUM LEVEL 142 MEQ/L (136-145); TOTAL 25(OH) VITAMIN D 70.4 NG/ML (30.0-100.0); TOTAL PROTEIN 6.4 GM/DL (6.4-8.2)
[2020-07-15 11:17] LABS: IMMUNOTYPING SERUM IGG ABNORMAL (NORMAL); IMMUNOTYPING SERUM KAPPA ABNORMAL (NORMAL)
== END ==
LOC: M LAB REF 10:33
PROVIDERS: ATTEND Family Medicine
DX: E55.9 Vitamin D deficiency, unspecified (principal); D50.9 Iron deficiency anemia, unspecified; I50.32 Chronic diastolic (congestive) heart failure

== ENCOUNTER → 2020-09-02 | Outpatient (CLI) | payer MEDICARE ==
--- NOTE | 2020-09-05 15:35 | SLEEPHOME ---
DATE: 09/02/2020 ORDERED BY: YINKA BUSBY Diagnostic home sleep testing was performed due to concern for the obstructive sleep apnea syndrome. For testing, a Nox T3 respiratory monitoring device was used. Continuous record was made of pulse, oxygen saturation, air flow, chest and abdominal strain, and body position. Nine hours and 59 minutes of data were reviewed. There were 8 hours and 2 minutes marked as time in bed. During the interval marked time in bed, there were 525 respiratory events identified of 10 seconds in duration or greater for a respiratory event index of 65.3. The events were primarily obstructive. However, 129 mixed and central apneas were seen. Baseline pulse rate was 82. Pulse rate ranged 63 to 105. Baseline saturation was 90%. Saturations fell to 72%. Testing was performed in both the supine and nonsupine positions. IMPRESSION: Abnormal home sleep testing with repetitive respiratory events and oxygen desaturations to 72% with a respiratory event index of 65.3 is consistent with the obstructive sleep apnea syndrome. RECOMMENDATION: The patient should be encouraged to undergo a formal sleep evaluation.
== END ==
LOC: M SLEEP HO 09:49
PROVIDERS: ATTEND Nurse Practitioner Family
DX: G47.33 Obstructive sleep apnea (adult) (pediatric) (principal)

== ENCOUNTER → 2020-12-23 | Outpatient (CLI) | payer MEDICARE ==
[2020-12-23 10:16] LABS: BASO % 0.5 % (0.0-1.0); EOS # 0.4 10^3/uL (0.0-0.5); EOS % 5.1 % (0.0-3.0); HEMATOCRIT 44.5 % (42.0-52.0); HEMOGLOBIN 14.5 g/dl (13.5-17.5); LYMPH # 2.1 10^3/uL (1.5-5.0); LYMPH % 28.1 % (24.0-44.0); MEAN CORPUSCULAR HEMOGLOBIN 31.9 pg (27.0-33.0); MEAN CORPUSCULAR HGB CONC 32.6 g/dl (32.0-36.5); MEAN CORPUSCULAR VOLUME 97.8 fl (80.0-96.0); MONO # 0.6 10^3/uL (0.0-0.8); MONO % 8.4 % (2.0-8.0); NEUTROPHILS # 4.3 10^3/uL (1.5-8.5); NEUTROPHILS % 57.6 % (36.0-66.0); PLATELET COUNT, AUTOMATED 238 10^3/uL (150-450); RED BLOOD COUNT 4.55 10^6/uL (4.30-6.10); WHITE BLOOD COUNT 7.5 10^3/uL (4.0-10.0)
[2020-12-23 10:56] LABS: ALBUMIN 3.2 GM/DL (3.2-5.2); ALT/SGPT 24 U/L (12-78); BILIRUBIN,TOTAL 0.5 MG/DL (0.2-1.0); BLOOD UREA NITROGEN 23 MG/DL (7-18); CALCIUM LEVEL 9.2 MG/DL (8.8-10.2); CARBON DIOXIDE LEVEL 34 MEQ/L (21-32); CHLORIDE LEVEL 103 MEQ/L (98-107); CREATININE FOR GFR 1.01 MG/DL (0.70-1.30); FERRITIN 26 NG/ML (26-388); GLOMERULAR FILTRATION RATE > 60.0 (>35); GLUCOSE, FASTING 139 MG/DL (70-100); POTASSIUM SERUM 3.9 MEQ/L (3.5-5.1); SODIUM LEVEL 141 MEQ/L (136-145); TOTAL PROTEIN 6.7 GM/DL (6.4-8.2)
[2020-12-23 11:02] LABS: HEMOGLOBIN A1c 7.1 %
[2020-12-24 18:07] LABS: FREE KAPPA LIGHT CHAINS SERUM 49.5 mg/L (3.3-19.4); FREE LAMBDA LIGHT CHAINS SERUM 16.3 mg/L (5.7-26.3); KAPPA/LAMBDA RATIO SERUM 3.04 (0.26-1.65)
[2020-12-26 10:00] LABS: ALBUMIN 3.64 GM/DL (3.29-5.55); ALBUMIN % 54.3 % (55.8-66.1); ALPHA-1-GLOBULIN % 4.1 % (2.9-4.9); ALPHA-1-GLOBULINS 0.27 GM/DL (0.17-0.41); ALPHA-2-GLOBULINS 0.98 GM/DL (0.42-0.99); ALPHA-2-GLOBULINS % 14.6 % (7.1-11.8); BETA-1-GLOBULINS 0.38 GM/DL (0.28-0.60); BETA-1-GLOBULINS % 5.6 % (4.7-7.2); BETA-2-GLOBULINS 0.29 GM/DL (0.19-0.55); BETA-2-GLOBULINS % 4.4 % (3.2-6.5); GAMMA GLOBULINS 1.14 GM/DL (0.65-1.58)
== END ==
LOC: M PLALAB 08:51
PROVIDERS: ATTEND Family Medicine
DX: I50.32 Chronic diastolic (congestive) heart failure (principal); E53.8 Deficiency of other specified B group vitamins; Z79.899 Other long term (current) drug therapy

== ENCOUNTER 2021-03-12 17:00 | Inpatient (IN) | payer MEDICARE, OTHER ==
[~2021-03-12] VITALS: Ht 185.4 cm; Wt 109.1 kg
[~2021-03-12 17:00] MED LIST changes: -KLOR10TA76 PO; +POTA-136 PO
[2021-03-12] MEDS ORDERED: dexameTHASONE 4 MG/ML 1ML VIAL (J1100 PER 1MG) IV ONE (17:20)
[2021-03-12] MEDS ORDERED: COMBIVENT RESPIMAT 100-20MCG INHALER 4GM INH SCH (17:20)
[2021-03-12 17:40] LABS: VENOUS BASE EXCESS 6.7 (-2.0-2.0); VENOUS HCO3 34.6 MEQ/L (23.0-27.0); VENOUS O2 SATURATION 65.8 % (60.0-80.0); VENOUS PARTIAL PRESSURE CO2 63.2 mmHg (38.0-50.0); VENOUS PARTIAL PRESSURE O2 35.4 mmHg (30.0-50.0); VENOUS PH 7.356 UNITS (7.330-7.430); VENOUS STANDARD HCO3 29.7 MEQ/L; VENOUS TOTAL CO2 36.5 MEQ/L (24.0-28.0)
[2021-03-12 17:48] LABS: BASO % 0.2 % (0.0-1.0); EOS % 0.8 % (0.0-3.0); HEMATOCRIT 44.6 % (42.0-52.0); HEMOGLOBIN 14.2 g/dl (13.5-17.5); LYMPH # 1.5 10^3/uL (1.5-5.0); LYMPH % 29.3 % (24.0-44.0); MEAN CORPUSCULAR HEMOGLOBIN 31.1 pg (27.0-33.0); MEAN CORPUSCULAR HGB CONC 31.8 g/dl (32.0-36.5); MEAN CORPUSCULAR VOLUME 97.6 fl (80.0-96.0); MONO # 0.6 10^3/uL (0.0-0.8); MONO % 11.2 % (2.0-8.0); NEUTROPHILS % 58.1 % (36.0-66.0); PLATELET COUNT, AUTOMATED 188 10^3/uL (150-450); RED BLOOD COUNT 4.57 10^6/uL (4.30-6.10); WHITE BLOOD COUNT 5.2 10^3/uL (4.0-10.0)
[2021-03-12 18:13] LABS: INR 1.18; PROTHROMBIN TIME 15.5 SECONDS (12.7-14.5)
[2021-03-12 18:14] LABS: PARTIAL THROMBOPLASTIN TIME 39.6 SECONDS (25.9-37.0)
[2021-03-12 18:16] LABS: D-DIMER QUANT 507.97 ng/ml (<500)
[2021-03-12 18:19] LABS: ALBUMIN 2.8 GM/DL (3.2-5.2); ALT/SGPT 25 U/L (12-78); BILIRUBIN,TOTAL 0.3 MG/DL (0.2-1.0); BLOOD UREA NITROGEN 21 MG/DL (7-18); C REACTIVE PROTEIN QUANTITATIV 7.58 MG/DL (0.00-0.30); CALCIUM LEVEL 7.8 MG/DL (8.8-10.2); CARBON DIOXIDE LEVEL 32 MEQ/L (21-32); CHLORIDE LEVEL 101 MEQ/L (98-107); CPK CREATINE PHOSPHOKINASE 153 U/L (39-308); CREATININE FOR GFR 1.21 MG/DL (0.70-1.30); FERRITIN 100 NG/ML (26-388); GLOMERULAR FILTRATION RATE > 60.0 (>35); GLUCOSE, FASTING 137 MG/DL (70-100); LDH LACTATE DEHYDROGENASE 306 U/L (87-241); MAGNESIUM LEVEL 1.7 MG/DL (1.8-2.4); MB/CK RELATIVE INDEX 0.65 (< OR =4); NT-PRO BNP 168 PG/ML (<450); POTASSIUM SERUM 4.2 MEQ/L (3.5-5.1); SODIUM LEVEL 138 MEQ/L (136-145); TOTAL PROTEIN 6.7 GM/DL (6.4-8.2)
[2021-03-12] MEDS ORDERED: ALLO300T2 PO (18:30)
[2021-03-12] MEDS ORDERED: DICL1GEL3 TOP (18:32)
[2021-03-12] MEDS ORDERED: HOME MED LIST COMPLETE! XX SCH (18:35)
--- NOTE | 2021-03-12 18:36 | REP ---
INDICATION: Coronavirus workup. COMPARISON: AP portable chest 06/22/2020. TECHNIQUE: Upright AP portable chest image was obtained. FINDINGS: The patient is rotated to the right. There is an area of masslike consolidation in the lower lung zone on the right could be artifactual. There is chronic elevation of the right hemidiaphragm. There are no pleural effusions. The heart borders are obscured a. There is no congestive heart failure evident. There is a large hiatal hernia. IMPRESSION: 1. Area of masslike consolidation projected over the lower lung zone on the right medially. 2. The heart borders are obscured but there is no evidence of congestive heart failure. 3. There is a large hiatal hernia. <Electronically signed by Pedrito Duke > 03/12/21 [id number]
[2021-03-12] MEDS ORDERED: GLUCOSE 4GM CHEW TABLET PO PRN (19:00)
[2021-03-12] MEDS ORDERED: BENZONATATE 100MG CAPSULE PO PRN (19:00)
[2021-03-12] MEDS ORDERED: DEXTROSE 50% 50 ML SYRINGE IV PRN (19:00)
[2021-03-12] MEDS ORDERED: FLUTICASONE PROP 0.05% NASAL SPRAY 16 GM (FLONASE) NARES PRN (19:00)
[2021-03-12] MEDS ORDERED: GLUCAGON INJ 1MG VIAL SC PRN (19:00)
[2021-03-12] MEDS ORDERED: COMBIVENT RESPIMAT 100-20MCG INHALER 4GM INH PRN (19:00)
--- NOTE | 2021-03-12 19:06 | HPEPDOC ---
[facility] Medical History & Physical Date of Admission Mar 12, 2021 Date of Service: Mar 12, 2021 Attending Physician: MERLINE MCCANN MD History and Physical CHIEF COMPLAINT: [86 y/o male c/o cough x1 week] HISTORY OF PRESENT ILLNESS: [This is an 86 y/o male with a pmh of seizures, cva, HFpEF, a-fib on eliquis, hld, htn, anisha not on cpap, gerd, prostate ca s/p radiation, gout, dm2 who presents to our ED on 03/12 for evaluation of an ongoing cough for 1 week with positive covid test at outpatient clinic one week ago. Patient tells me that he does not feel his symptoms are very severe and states besides his cough he "feels great." Patient states that his cough is sometimes productive of clear-white sputum. Patient, at the time of my exam, denies any fevers, chills, chest pain, sob, wheezing, chest tightness, abd pain, n/v/d/c, pedal edema, calf pain.] PAST MEDICAL HISTORY: 1. [See HPI PAST SURGICAL HISTORY: 1. [Tonsillectomy]. 2. [TURP]. SOCIAL HISTORY: Tobacco use:[Former, quit in the 70s] ETOH: [Denies] Illicit drug use: [Denies] FAMILY HISTORY: Reviewed - none pertinent ALLERGIES: Please see below. REVIEW OF SYSTEMS: CONSTITUTIONAL: [Denies fevers, chills]. HEENT: [Denies uri sx]. CARDIOVASCULAR: [Denies chest pain, palpitations]. RESPIRATORY: [See HPI]. GASTROINTESTINAL: [Denies abd pain, n/v/d/c]. GENITOURINARY: [Denies dysuria]. SKIN: [Denies rash]. MUSCULOSKELETAL: [Denies acute joint/back pain]. ENDOCRINE: [Hx of DM]. HEMATOLOGIC/LYMPHATIC: [Denies hx of vte]. HOME MEDICATIONS: Please see below. PHYSICAL EXAMINATION: VITAL SIGNS: Please see below. GENERAL APPEARANCE: [This is an 86 year old male who is alert and oriented to all questioning. He appears to have mildly increased work of breathing]. HEENT: [No mass or lesion. EOMI. No scleral icterus. Nares patent. Oral mucosa moist]. CARDIOVASCULAR: [Regular rate, rhythm. No murmurs, rubs, gallops]. LUNGS: [Coarse breath sounds with diffuse wheezing, right worse than left]. ABDOMEN: [Soft, nontender]. MUSCULOSKELETAL: [No joint deformity noted]. EXTREMITIES: [No pedal edema appreciated. Pulses intact. No overlying skin changes]. NEUROLOGICAL: [Speech clear. A+Ox3. No focal deficits]. PSYCHIATRIC: [Mood and affect appear appropriate]. LABORATORY DATA: See below. IMAGING: [FINDINGS: The patient is rotated to the right. There is an area of masslike consolidation in the lower lung zone on the right could be artifactual. There is chronic elevation of the right hemidiaphragm. There are no pleural effusions. The heart borders are obscured a. There is no congestive heart failure evident. There is a large hiatal hernia. IMPRESSION: 1. Area of masslike consolidation projected over the lower lung zone on the right medially. 2. The heart borders are obscured but there is no evidence of congestive heart failure. 3. There is a large hiatal hernia.] MICROBIOLOGY: Please see below. ASSESSMENT: [This is an 86 y/o male with a pmh of seizures, cva, HFpEF, a-fib on eliquis, hld, htn, anisha not on cpap, gerd, prostate ca s/p radiation, gout, dm2 who presents to our ED on 03/12 for evaluation of an ongoing cough for 1 week with positive covid test at outpatient clinic one weeks ago.]. . PLAN: 1. [COVID19 - Patient acutely hypoxic in the ED, requiring 3L nasal canula, along with double lung pna on cxr indicates pt for admission for tx of Hypoxic Reparatory failure 2/2 COVID19 Pneumonia - suspicion for superimposed bacterial low at this time. No fever/white cou nt/tachycardia. Procal ordered. 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 CHF - pt not in acute exacerbation - continue torsemide 3. A-fib - continue eliquis - pt rate controlled in the ed 4. DM2 - sliding scale coverage - hypoglycemic protocol 5. GERD - continue omeprazole 6. Gout - continue allopurinol 7. HLD - continue rosuvastatin 8. Hx of cva - continue asa DVT prophylaxis - pt on eliquis, asa]. Vital Signs Vital Signs Date Time Temp Pulse Resp B/P (MAP) Pulse Ox O2 Delivery O2 Flow Rate FiO2 03/12/21 17:58 94 97 Nasal Cannula 3.0 03/12/21 17:47 173/86 (115) Laboratory Data Labs 24H Laboratory Tests 2 03/12/21 17:28: Immature Granulocyte % (Auto) 0.4, Neutrophils (%) (Auto) 58.1, Lymphocytes (%) (Auto) 29.3, Monocytes (%) (Auto) 11.2H, Eosinophils (%) (Auto) 0.8, Basophils (%) (Auto) 0.2, Neutrophils # (Auto) 3.0, Lymphocytes # (Auto) 1.5, Monocytes # (Auto) 0.6, Eosinophils # (Auto) 0.0, Basophils # (Auto) 0.0, Nucleated Red Blood Cells % (auto) 0.0, Prothrombin Time 15.5H, Prothromb Time International Ratio 1.18, Activated Partial Thromboplast Time 39.6H, Fibrinogen 548H, D-Dimer, Quantitative 507.97H, Blood Gas Bicarbonate Standard 29.7, Venous Blood pH 7.356, Venous Blood Partial Pressure CO2 63.2H, Venous Blood Partial Pressure O2 35.4, Venous Blood Total Carbon Dioxide 36.5H, Venous Blood HCO3 34.6H, Venous Blood Oxygen Saturation 65.8, Venous Blood Base Excess 6.7H, Anion Gap 5L, Glomerular Filtration Rate > 60.0, Lactic Acid Level 1.4, Calcium Level 7.8L, Magnesium Level 1.7L, Ferritin 100, Total Bilirubin 0.3, Aspartate Amino Transf (AST/SGOT) 33, Alanine Aminotransferase (ALT/SGPT) 25, Alkaline Phosphatase 64, Lactate Dehydrogenase 306H, Total Creatine Kinase 153, Creatine Kinase MB 1.0, Creatine Kinase MB Relative Index 0.65, Troponin I 0.10, C-Reactive Protein, Quantitative 7.58H, TZ-Oyt-R-Type Natriuretic Peptide 168, Total Protein 6.7, Albumin 2.8L, Albumin/Globulin Ratio 0.7, Thyroid Stimulating Hormone (TSH) 1.820 CBC/BMP Laboratory Tests 03/12/21 17:28 Microbiology Microbiology 03/12/21 Blood Culture, Received Pending 03/12/21 Blood Culture, Received Pending Home Medications Scheduled Apixaban (Eliquis) 5 Mg Tablet, 5 MG PO BID Aspirin (Aspirin EC) 81 Mg Tablet.dr, 81 MG PO DAILY Cholecalciferol (Vitamin D3) (Vitamin D3) 1,000 Unit Tablet, 5,000 UNITS PO QHS Cyanocobalamin (Vitamin B-12) (Vitamin B-12) 1,000 Mcg Tablet, 1,000 MCG PO DAILY Ferrous Sulfate (Ferrous Sulfate) 325 Mg Tablet, 325 MG PO QHS Glimepiride (Glimepiride) 4 Mg Tablet, 4 MG PO BID Insulin Degludec (Tresiba Flextouch U-200) 200 Unit/1 Ml Insuln.pen, 10 UNIT SQ QHS Metformin HCl (Metformin HCl ER) 500 Mg Tab.er.24h, 500 MG PO BID Omeprazole (Omeprazole) 40 Mg Capsule.dr, 40 MG PO QHS Potassium Chloride (Potassium Chloride) 10 Meq Tab.er.prt, 10 MEQ PO BID Rosuvastatin Calcium (Rosuvastatin Calcium) 20 Mg Tablet, 20 MG PO QHS Torsemide (Torsemide) 20 Mg Tablet, 30 MG PO DAILY allopurinoL (allopurinoL) 300 Mg Tablet, 300 MG PO DAILY Scheduled PRN Diclofenac Sodium (Diclofenac Sodium) 1% 100GM Gel..gram., 1 APPLIC TOP QID PRN for PAIN LEVEL 1-4 APPLY TO RIGHT KNEE AND RIGHT INDEX FINGER Fluticasone Propionate (Fluticasone Propionate) 16 Gm [place].susp, 2 SPRAY NARES DAILY PRN for ALLERGIES Allergies Coded Allergies: No Known Allergies (Verified , 10/10/04) A-FIB/CHADSVASC A-FIB History Current/History of A-Fib/PAF?: Yes Current PO Anticoag Therapy: Yes LAUREN NIETO Mar 12, 2021 19:06
[2021-03-12] MEDS ORDERED: MAG SULF 1GM/100ML (MAG RUN) 1 GM in IV 1 EA IV ONE (19:10)
--- OUTSIDE RECORDS SUMMARY | 2021-03-12 20:00 | CCD ---
Author Author [facility] Organization [facility] Address Unknown Phone Unavailable Care Team Providers Care Computer Programming Professor Name Role Phone Landen Dyson Unavailable PROBLEMS Type Condition ICD9-CM Code [id number] Code Onset Dates Condition S tatus W/U Status Risk SNOMED Code Notes Problem DJD (degenerative joint disease), 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 Active confirmed 692814772 Problem Hyperlipidemia E78.5 Active confirmed 16365 004 Problem Vitamin B12 deficiency E53.8 Active confirmed 195126607 Problem Vitamin D deficiency E55.9 Active confirmed 74977900 Problem GERD (gastroesophageal reflux disease) K21.9 A ctive confirmed 030390515 Problem Primary osteoarthritis of both knees M17.0 Act jasen confirmed 323904928 Problem CKD (chronic kidney disease) stage 3, GFR 30-59 ml/min N18.3 Active confirmed 652079935 Problem 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.511 Active confirmed [id number] Problem Non-seasonal allergic rhinitis, unspecified trigger J30.89 Active confirmed 37894529 Problem Essential (primary) hypertension I10 Active conf irmed 77922795 Problem Chronic diastolic (congestive) heart failure I50.3 2 Active confirmed 896139615 Problem 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.8 Active confirmed 166859791 Problem Gout M10.9 Active confirmed 28270790 Problem Mild dementia F03.90 Active confirmed 809427 281316271 Problem Ataxia R27.0 Active confirmed 53827594 Problem 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 Active confirmed 230 308712 Problem Seizure disorder G40.909 Active confirmed 12 3106901 Problem PVD (peripheral vascular disease) I73.9 Active confirmed 408174631 Problem Iron deficiency anemia, unspecified iron deficiency an emia type D50.9 Active confirmed 24701813 Problem 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 Active confirmed 760531360 Problem Dry eyes, bilateral H04.123 Active confirmed 342198343 Problem 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 Active confirmed 14713745 Problem Obstructive sleep apnea G47.33 Active confirmed 95364927 Problem 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 Active confirmed 997261843 Problem Sensorineural hearing loss (SNHL) of both ears H90 .3 Active confirmed 058311785 Problem Overweight E66.3 Active confirmed 197058175 Problem Prostate cancer C61 Active confirmed 3990 72178 Problem Skin ulcer of left heel, limited to breakdown of skin L97.421 Active confirmed 751065894 Problem 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 Active confirmed 674947568 Problem Xerosis cutis L85.3 Active confirmed 232175 00 Problem MIHIR (obstructive sleep apnea) G47.33 Active confirm ed 66211438 ALLERGIES Allergen (clinical drug ingredient) Drug/Non Drug Allergy do cumented on EMR Reaction Allergy Type Onset Date Status evironmental watery eyes,sneezing Non Drug Allergy Active ENCOUNTERS from 1933 to 2021-01-13 Encounter Location Date Provider Diagnosis [address] [phone] [place] [address] 17 Dec, 2020 Landen Dyson Chronic diastolic (congestiv e) heart failure I50.32 IMMUNIZATIONS Vaccine Route Administration Date Status Influenza 18 yrs & older Flublok IM Intramuscular Apr 01, 2019 Administered Influenza 18 yrs & older Flublok IM Intramuscular May 02, 2018 Administered Influenza (High Dose 65 & up) IM Intramuscular Feb 12, 2017 A dministered Influenza (High Dose 65 & up) IM Intramuscular Feb 03, 2016 A dministered Influenza (High Dose 65 & up) IM Intramuscular Feb 24, 2015 A dministered Influenza 6mo & up Fluzone IM Intramuscular Feb 11, 2014 Admi nistered Influenza 6mo & up Fluzone IM Intramuscular Apr 13, 2013 Admi nistered Influenza 6mo & up Fluzone IM Intramuscular Mar 04, 2012 Admi nistered Influenza 6mo & up Fluzone IM Intramuscular May 05, 2010 Admi nistered SOCIAL HISTORY Tobacco Use: Social History Observation Description Date Details (start date - stop date) Former Smoker Sex Assigned At : Social History Observation Description Sex Assigned At Unknown Education: Question Answer Notes Level of Education: Finished High School Language: Question Answer Notes Languages spoken: Maori Mormon: Question Answer Notes Mormon No orthodoxy beliefs that would impact health [...] Notes Start Da te End Date Status Omeprazole 40 MG 1 capsule Orally Once a day for 90 day(s) Active Voltaren 1 % clarification 5 gm to r knee , r index finger Transdermal four times daily as needed for 30 Days Active Pen [place] 31G X 6 MM as directed subcutaneously once daily for 30 Days Apr, Active Cyanocobalamin 500 MCG 1 tablet Orally Once a day for 90 day(s) Active Potassium Chloride ER 10 MEQ TAKE ONE TABLET BY MOUTH TWO TIMES A DAY for 90 Active Apixaban 5 MG 1 tab Orally bid Activ e Blood Glucose Test - marty countour ez subcutaneously A C BID for 9 0 day(s) Active Fluticasone Propionate 50 MCG/ACT 2 sprays in each nos tril Nasally every morning for 90 day(s) Active Tresiba FlexTouch 200 UNIT/ML 10 units Subcutaneous at bedtime f or 90 day(s) Active Rosuvastatin Calcium 20 MG TAKE ONE TABLET BY MOUTH EVERY DAY for 90 Active Allopurinol 300 MG TAKE ONE TABLET BY MOUTH DAILY for 90 Active Rosuvastatin Calcium 20 MG 1 tablet Orally Daily for 90 day(s) Active metFORMIN HCl ER 500 MG 1 tab Orally AC BID for 90 day(s) Active Glimepiride 4 MG TAKE ONE TABLET BY MOUTH TWICE A DAY BEFORE MEALS fo r 90 Active Allopurinol 300 MG 1 tablet Orally Once a day for 90 day(s) Active Systane Ultra 0.4-0.3 % 1 drop each eye Ophthalmic QID Active Glucometer _ One Touch Verio DX: E11.9 Daily use for 365 days Feb, Active Apixaban 5 MG 1 tab Orally bid for 90 day(s) Active Aspirin 81 MG 1 tablet Orally Once a day Active Potassium Chloride 10 MEQ 1 tablet Orally Twice a day for 90 day(s) Active COMPRESSION STOCKINGS 15-20 mmHg DIRECTED above the knee Daily for 30 Days fax to [facility] [phone] Jun, Active Knee Compression Sleeve/L/XL 1 as directed R60.9 Daily for 99 mo [facility] Apr, Active Glimepiride 4 MG 1 tab Orally AC BID for 90 day(s) Active Cholecalciferol 5000 UNIT 1 capsule Orally Once a day for 90 day(s) Active Ammonium Lactate 12 % 1 application Externally Twi ce a day to bothb feet for 30 Days Active Optifoam Gentle Foam Dressings as directed 4 x4; topic ally 2-3x/week x 4 weeks for 30 days Jun, Active Ferrous Sulfate 325 (65 Fe) MG 1 tablet Orally every other day Active Walker - 4 wheeled walker w/ seat Daily DX: R27.0 for 30 Days fax to [facility] [phone] Oct, Active OneTouch Verio - USE TWO TIMES A DAY for 50 Active CPAP Machine as directed 4-20 mmHg dx: G47.33 August, Active Lancets - marty contour ez subcutaneously AC BID DX: E11.8 for 90 Active CPAP mask as directed decrease pressure by 2 dx: G 47.33 for 999 days [facility] fax # August, Active Torsemide 20 MG 1 1/2 ablet Orally every morning for 90 day(s) Active PROCEDURES No Information RESULTS No Results REASON FOR VISIT refill MEDICAL (GENERAL) HISTORY Type Description Date Medical [...] History bilateral knee osteoarthritis Medical History lumbar sondylosis-04/27/20 M RI L35 severe spinal stenosis compression TS and B L4/5 NR; Medical History erectile dysfunction Medical History obstructive sleep apnea-patient refuses treatment Medical History partial complex seizure diso rder-recurrence p 10/2016 CVA-L temporal/parietal slowing, but no epileptiform activity Medical History obesity Medical History grade 1 christa dysfx, AV sclero sis, trace [place], no evidence of bubble passage form R to L-06/23/20 [facility] Medical History recurrent gout, L foot Medical [...] L pontine CVA-asa changed to clopid 11/07- Hospitalization History acute AMS, dysarthria upon a wakening favoring TIA- MRI/MRA brain s acute CVA, B ICA narrowing <50% by carotid US,, BCX2 NG, -UA, - COVID, -EEG,-Ali 06/22- Goals Section No Information Health Concerns No Information MEDICAL EQUIPMENT No Information MENTAL STATUS No Information FUNCTIONAL STATUS No Information ASSESSMENTS Encounter Date Diagnosis Assessment Notes Treatment Notes Treatm ent Clinical Notes Dec, Chronic diastolic (congestive) heart failure (IC D-10 - I50.32) PLAN OF TREATMENT Medication Medication Name Sig Start Date Stop Date CPAP mask as directed decrease pressure by 2 dx: G 47.33 for 999 days August, Torsemide 20 MG 1 1/2 ablet Orally every morning for 90 day(s) Systane Ultra 0.4-0.3 % 1 drop each eye Ophthalmic QID Apixaban 5 MG 1 tab Orally bid for 90 day(s) Glimepiride 4 MG 1 tab Orally AC BID for 90 day(s) Ammonium Lactate 12 % 1 application Externally Twi ce a day to bothb feet for 30 Days metFORMIN HCl ER 500 MG 1 tab Orally AC BID for 90 day(s) Allopurinol 300 MG 1 tablet Orally Once a day for 90 day(s) Cyanocobalamin 500 MCG 1 tablet Orally Once a day for 90 day(s) Aspirin 81 MG 1 tablet Orally Once a day Tresiba FlexTouch 200 UNIT/ML 10 units Subcutaneous at bedtime f or 90 day(s) Omeprazole 40 MG 1 capsule Orally Once a day for 90 day(s) Potassium Chloride 10 MEQ 1 tablet Orally Twice a day for 90 day (s) Voltaren 1 % clarification 5 gm to r knee , r index finger Transdermal four times daily as needed for 30 Days Cholecalciferol 5000 UNIT 1 capsule Orally Once a day for 90 day (s) Rosuvastatin Calcium 20 MG 1 tablet Orally Daily for 90 day(s) Fluticasone Propionate 50 MCG/ACT 2 sprays in each nos tril Nasally every morning for 90 day(s) Next Appt Details Provider Name:Landen Dyson, 2021-05-04 0 1:00:00 PM, [address] [facility], , [place], [address], Insurance Providers Payer Name Payer Address Payer Phone Insured Name Patient Relati onship to Insured Coverage Start Date Coverage End Date [facility] [id number] [facility] [phone] INA SORIANO
--- OUTSIDE RECORDS SUMMARY | 2021-03-12 20:00 | CCD | Continuity of Care Document ---
Author Author [facility] Organization Unknown Address [address] [place] [address] Phone [phone] Care Team Providers Care Window Trimmer Apprentice Name Role Phone AUTM Unavailable Landen Dyson M.D. AUTM [phone] AUTM Unavailable Problems Description No Information Available Social History Type Date Description Comments Sex Unknown Allergies and adverse reactions Description No Known Drug Allergies Medications Active Medications SIG Qnty Indications Ordering Provide r Date Autopap Device 4-20cm lcw Cristiana Winter, N.P. 10/26/2020 Torsemide 20mg Tablets 1/2-1 cap by mouth every day 60tabs Unknown Potassium Chloride ER 10Meq Tablet s ER 1 cap by mouth every day Unknown 0 Metformin HCL ER 500mg Tablets ER 24HR 1 cap by mouth twice a day 60tabs Unknown 000 Glimepiride 4mg Tablets 1 cap by mouth twice a day Unknown Januvia 50mg Tablets 1 cap by mouth every day Unknown Eliquis 5mg Tablets 1 tab by mouth twice a day Unknown Omeprazole 40mg Capsules DR 1 by mouth every day Unknown Rosuvastatin Calcium 20mg Tablets 1 cap by mouth every day Unknown Immunizations Description No Information Available Vital Signs Date Vital Result Comment 02/01/2021 2:55pm BP Systolic 130 mmHg BP Diastolic 70 mmHg Heart Rate 80 /min O2 % BldC Oximetry 94 % Height 69 inches 5'9" Weight 255.00 lb BMI (Body Mass Index) 37.7 kg/m2 [place] Body Weight 160 lb Weight 115.668 kg BSA (Body Surface Area) 2.29 m2 10/20/2020 2:30pm BP Systolic 130 mmHg BP Diastolic 70 mmHg Heart Rate 114 /min O2 % BldC Oximetry 94 % Height 69 inches 5'9" Weight 252.00 lb BMI (Body Mass Index) 37.2 kg/m2 [place] Body Weight 160 lb Weight 114.307 kg BSA (Body Surface Area) 2.28 m2 Results Description No Information Available Procedures Date Code Description Status 10/20/2020 66324 Office/Outpatient New Low MDM 30 -44 Minutes Completed Medical Devices Description No Information Available Encounters Type Date Location Provider Dx Diagnosis Office Visit 10/20/2020 2:45p [facility] Pulmonary/Thoracic Kaitlyn Winter N.[place]osa G47.33 Obstructive sleep apnea (adult) (pediatr ic) Assessments Date Code Description Provider 02/01/2021 G47.33 Obstructive sleep apnea (adult) (pediatric) Cristiana Winter N.[place] 10/20/2020 G47.33 Obstructive sleep apnea (adult) (pediatric) Cristiana Winter, N.P. Plan of Treatment Future Appointment(s):* 02/05/2022 2:15 pm - Cristiana Winter N.[place] at [facility] Pulmonary/Thoracic 02/01/2021 - Cristiana Winter, N.P.* G47.33 Obstructive sleep apnea (adult) (pediatric) * * New Orders:* CPAP/BIPAP Supply, Ordered: 02/01/21 * CPAP/BIPAP mask refit, Ordered: 02/01/21 * Comments:* 1. No changes were made to the CPAP pressure at today's visit. 2. The patient is aware to call with any problems related to CPAP use, snoring through the mask or return of daytime sleepiness. 3. Per the patient's request, a CPAP [facility] [place] * Follow up:* 1. Follow up in one year to reassess CPAP compliance or sooner should problems develop. Functional Status Description No Information Available Mental Status Mental Condition Comment Date Status Cognitive ability not impaired A ctive Referrals Refer to Reason for Referral Status Appt Date Grant Solorzano R.P.A.-C. ABNORMAL HST Closed 09/28 [facility]-Pulmonary [address] [place] [address] [phone]
--- OUTSIDE RECORDS SUMMARY | 2021-03-12 20:00 | CCD ---
Author Author [facility] Organization [facility] Address Unknown Phone Unavailable Care Team Providers Care Peripheral Edp Equipment Operator Name Role Phone Landen Dyson Unavailable PROBLEMS Type Condition ICD9-CM Code [id number] Code Onset Dates Condition S tatus W/U Status Risk SNOMED Code Notes Problem DJD (degenerative joint disease), 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 Active confirmed 795555827 Problem Hyperlipidemia E78.5 Active confirmed 40677 004 Problem Vitamin B12 deficiency E53.8 Active confirmed 262854416 Problem Vitamin D deficiency E55.9 Active confirmed 81761051 Problem GERD (gastroesophageal reflux disease) K21.9 A ctive confirmed 021435323 Problem Primary osteoarthritis of both knees M17.0 Act jasen confirmed 536178801 Problem CKD (chronic kidney disease) stage 3, GFR 30-59 ml/min N18.3 Active confirmed 114163252 Problem 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.511 Active confirmed 696391558384692 Problem Non-seasonal allergic rhinitis, unspecified trigger J30.89 Active confirmed 14589446 Problem Essential (primary) hypertension I10 Active conf irmed 37655280 Problem Chronic diastolic (congestive) heart failure I50.3 2 Active confirmed 691145466 Problem 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.8 Active confirmed 362059355 Problem Gout M10.9 Active confirmed 43259107 Problem Mild dementia F03.90 Active confirmed 429600 158216918 Problem Ataxia R27.0 Active confirmed 00868735 Problem 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 Active confirmed 230 810206 Problem Seizure disorder G40.909 Active confirmed 12 8593389 Problem PVD (peripheral vascular disease) I73.9 Active confirmed 259122955 Problem Iron deficiency anemia, unspecified iron deficiency an emia type D50.9 Active confirmed 49637851 Problem 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 Active confirmed 465774338 Problem Dry eyes, bilateral H04.123 Active confirmed 810673142 Problem 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 Active confirmed 14366513 Problem Obstructive sleep apnea G47.33 Active confirmed 14434910 Problem 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 Active confirmed 725182324 Problem Sensorineural hearing loss (SNHL) of both ears H90 .3 Active confirmed 906949319 Problem Overweight E66.3 Active confirmed 020921645 Problem Prostate cancer C61 Active confirmed 3990 88072 Problem Skin ulcer of left heel, limited to breakdown of skin L97.421 Active confirmed 174112769 Problem 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 Active confirmed 464853443 Problem Xerosis cutis L85.3 Active confirmed 240415 00 Problem MIHIR (obstructive sleep apnea) G47.33 Active confirm ed 78215813 ALLERGIES Allergen (clinical drug ingredient) Drug/Non Drug Allergy do cumented on EMR Reaction Allergy Type Onset Date Status evironmental watery eyes,sneezing Non Drug Allergy Active ENCOUNTERS from 1933 to 2021-01-19 Encounter Location Date Provider Diagnosis [address] [phone] [place] [address] Dec, Landen Dyson IMMUNIZATIONS Vaccine Route Administration Date [...] School Language: Question Answer Notes Languages spoken: Lithuanian Sikh: Question Answer Notes Sikh No gnosticism beliefs that would impact health care. Sexual [...] Notes Start Da te End Date Status Cyanocobalamin 500 MCG 1 tablet Orally Once a day for 90 day(s) Active Potassium Chloride ER 10 MEQ TAKE ONE TABLET BY MOUTH TWO TIMES A DAY for 90 Active Apixaban 5 MG 1 tab Orally bid Activ e Ferrous Sulfate 325 (65 Fe) MG 1 tablet Orally every other day Active Cholecalciferol 5000 UNIT 1 capsule Orally Once a day for 90 day(s) Active Ammonium Lactate 12 % 1 application Externally Twi ce a day to bothb feet for 30 Days Active Tresiba FlexTouch 200 UNIT/ML 10 units Subcutaneous at bedtime f or 90 day(s) Active Rosuvastatin Calcium 20 MG TAKE ONE TABLET BY MOUTH EVERY DAY for 90 Active Omeprazole 40 MG 1 capsule Orally Once a day for 90 day(s) Active Voltaren 1 % clarification 5 gm to r knee , r index finger Transdermal four times daily as needed for 30 Days Active Allopurinol 300 MG TAKE ONE TABLET BY MOUTH DAILY for 90 Active Glimepiride 4 MG TAKE ONE TABLET BY MOUTH TWICE A DAY BEFORE MEALS fo r 90 Active Blood Glucose Test - marty countour ez subcutaneously A C BID for 9 0 day(s) Active Fluticasone Propionate 50 MCG/ACT 2 sprays in each nos tril Nasally every morning for 90 day(s) Active Rosuvastatin Calcium 20 MG 1 tablet Orally Daily for 90 day(s) Active Glucometer _ One Touch Verio DX: E11.9 Daily use for 365 days Feb, Active Walker - 4 wheeled walker w/ seat Daily DX: R27.0 for 30 Days fax to [facility] [phone] Oct, Active OneTouch Verio - USE TWO TIMES A DAY for 50 Active Knee Compression Sleeve/L/XL 1 as directed R60.9 Daily for 99 mo [facility] Apr, Active Glimepiride 4 MG 1 tab Orally AC BID for 90 day(s) Active Optifoam Gentle Foam Dressings as directed 4 x4; topic ally 2-3x/week x 4 weeks for 30 days Jun, Active Systane Ultra 0.4-0.3 % 1 drop each eye Ophthalmic QID Active metFORMIN HCl ER 500 MG 1 tab Orally AC BID for 90 day(s) Active Potassium Chloride 10 MEQ 1 tablet Orally Twice a day for 90 day(s) Active Allopurinol 300 MG 1 tablet Orally Once a day for 90 day(s) Active Apixaban 5 MG 1 tab Orally bid for 90 day(s) Active Aspirin 81 MG 1 tablet Orally Once a day Active COMPRESSION STOCKINGS 15-20 mmHg DIRECTED above the knee Daily for 30 Days [facility] [phone] Jun, Active Lancets - marty contour ez subcutaneously AC BID DX: E11.8 for 90 Active CPAP mask as directed decrease pressure by 2 dx: G 47.33 for 999 days [facility] fax # August, Active CPAP Machine as directed 4-20 mmHg dx: G47.33 August, Active Torsemide 20 MG 1 1/2 ablet Orally every morning for 90 day(s) Active Pen [place] 31G X 6 MM as directed subcutaneously once daily for 30 Days Apr, Active PROCEDURES No Information RESULTS No Results REASON FOR VISIT 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 slicing 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 MEDICAL (GENERAL) HISTORY Type Description Date Medical [...] 1 christa dysfx, AV sclero sis, trace [place], no evidence of bubble passage form R [...] Date Stop Date Torsemide 20 MG 1 1/2 ablet Orally every morning for 90 day(s) [place] 31G X 6 MM as directed subcutaneously once daily for 30 Days Apr, Apixaban 5 MG 1 tab Orally bid for 90 day(s) CPAP mask as directed decrease pressure by 2 dx: G 47.33 for 999 days August, metFORMIN HCl ER 500 MG 1 tab Orally AC BID for 90 day(s) Allopurinol 300 MG 1 tablet Orally Once a day for 90 day(s) Tresiba FlexTouch 200 UNIT/ML 10 units Subcutaneous at bedtime f or 90 day(s) Rosuvastatin Calcium 20 MG 1 tablet Orally Daily for 90 day(s) Ammonium Lactate 12 % 1 application Externally Twi ce a day to bothb feet for 30 Days Aspirin 81 MG 1 tablet Orally Once a day Systane Ultra 0.4-0.3 % 1 drop each eye Ophthalmic QID Omeprazole 40 MG 1 capsule Orally Once a day for 90 day(s) Cyanocobalamin 500 MCG 1 tablet Orally Once a day for 90 day(s) Glimepiride 4 MG 1 tab Orally AC BID for 90 day(s) Cholecalciferol 5000 UNIT 1 capsule Orally Once a day for 90 day (s) Potassium Chloride 10 MEQ 1 tablet Orally Twice a day for 90 day (s) Fluticasone Propionate 50 MCG/ACT 2 sprays in each nos tril Nasally every morning for 90 day(s) Voltaren 1 % clarification 5 gm to r knee , r index finger Transdermal four times daily as needed for 30 Days Next Appt Details Provider Name:Landen Dyson, 2021-05-04 0 1:00:00 PM, [address] [facility], , [place], [address], Insurance Providers Payer Name Payer Address Payer Phone Insured Name Patient Relati onship to Insured Coverage Start Date Coverage End Date [facility] [address] [address] [facility] [id number] [phone] INA SORIANO
--- OUTSIDE RECORDS SUMMARY | 2021-03-12 20:00 | CCD ---
Author Author [facility] Organization [facility] Address Unknown Phone Unavailable Care Team Providers Care Clinical Reviewer Name Role Phone Landen Dyson Unavailable PROBLEMS Type Condition ICD9-CM Code [id number] Code Onset Dates Condition S tatus W/U Status Risk SNOMED Code Notes Problem DJD (degenerative joint disease), 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 Active confirmed 669272121 Problem Hyperlipidemia E78.5 Active confirmed 65618 004 Problem Vitamin B12 deficiency E53.8 Active confirmed 145378629 Problem Vitamin D deficiency E55.9 Active confirmed 04843250 Problem GERD (gastroesophageal reflux disease) K21.9 A ctive confirmed 126826057 Problem Primary osteoarthritis of both knees M17.0 Act jasen confirmed 266003537 Problem CKD (chronic kidney disease) stage 3, GFR 30-59 ml/min N18.3 Active confirmed 995310743 Problem 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.511 Active confirmed 766747016060002 Problem Non-seasonal allergic rhinitis, unspecified trigger J30.89 Active confirmed 07491784 Problem Essential (primary) hypertension I10 Active conf irmed 62523651 Problem Chronic diastolic (congestive) heart failure I50.3 2 Active confirmed 947026820 Problem 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.8 Active confirmed 608592070 Problem Gout M10.9 Active confirmed 63648627 Problem Mild dementia F03.90 Active confirmed 259121 253056268 Problem Ataxia R27.0 Active confirmed 38235109 Problem 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 Active confirmed 230 280018 Problem Seizure disorder G40.909 Active confirmed 12 2257895 Problem PVD (peripheral vascular disease) I73.9 Active confirmed 638893641 Problem Iron deficiency anemia, unspecified iron deficiency an emia type D50.9 Active confirmed 14282948 Problem 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 Active confirmed 587256601 Problem Dry eyes, bilateral H04.123 Active confirmed 424995791 Problem 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 Active confirmed 67621259 Problem Obstructive sleep apnea G47.33 Active confirmed 27043387 Problem 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 Active confirmed 309228776 Problem Sensorineural hearing loss (SNHL) of both ears H90 .3 Active confirmed 783987958 Problem Overweight E66.3 Active confirmed 649704684 Problem Prostate cancer C61 Active confirmed 3990 24142 Problem Skin ulcer of left heel, limited to breakdown of skin L97.421 Active confirmed 602583983 Problem 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 Active confirmed 705806369 Problem Xerosis cutis L85.3 Active confirmed 722927 00 Problem MIHIR (obstructive sleep apnea) G47.33 Active confirm ed 48835601 ALLERGIES Allergen (clinical drug ingredient) Drug/Non Drug Allergy do cumented on EMR Reaction Allergy Type Onset Date Status evironmental watery eyes,sneezing Non Drug Allergy Active ENCOUNTERS from 1935 to 2021-02-16 Encounter Location Date Provider Diagnosis [address] [phone] [place] [address] Jan, Landen Dyson IMMUNIZATIONS Vaccine Route Administration Date [...] School Language: Question Answer Notes Languages spoken: Botswanan Mormon: Question Answer Notes Mormon No uatsdin beliefs that would impact health care. Sexual [...] Notes Start Da te End Date Status FreeStyle Ghulam 14 Day Sensor - as directed subcutaneo usly DX: E11.8 for 30 Days Jan, Active Cholecalciferol 5000 UNIT 1 capsule Orally Once a day for 90 day(s) Active Ammonium Lactate 12 % 1 application Externally Twi ce a day to bothb feet for 30 Days Active Ferrous Sulfate 325 (65 Fe) MG [...] TABLET BY MOUTH DAILY for 90 Active Cyanocobalamin 500 MCG 1 [...] BY MOUTH EVERY DAY for 90 Active Glimepiride 4 MG TAKE ONE TABLET BY MOUTH TWICE A DAY BEFORE MEALS Active Glucometer _ One Touch Verio DX: E11.9 Daily use for 365 days Feb, Active Walker - 4 wheeled walker w/ seat Daily DX: R27.0 for 30 Days fax to [facility] [phone] Oct, Active OneTouch Verio - USE TWO TIMES A DAY for 50 Active Knee Compression Sleeve/L/XL 1 as directed R60.9 Daily for 99 mo nt Apr, Active metFORMIN HCl ER 500 MG 1 tab Orally AC BID for 90 day(s) Active Optifoam Gentle Foam Dressings as directed 4 x4; topic ally 2-3x/week x 4 weeks for 30 days Jun, Active Systane Ultra 0.4-0.3 % 1 drop each eye Ophthalmic QID Active Blood Glucose Test - marty countour ez subcutaneously A C BID for 9 0 day(s) Active Glimepiride 4 MG 1 tab Orally AC BID for 90 day(s) Active Rosuvastatin Calcium 20 MG 1 tablet Orally Daily for 90 day(s) Active Apixaban 5 MG 1 tab Orally bid for 90 day(s) Active Aspirin 81 MG 1 tablet Orally Once a day Active COMPRESSION STOCKINGS 15-20 mmHg DIRECTED above the knee Daily for 30 Days fax to [place] [phone] Jun, Active Lancets - marty contour ez subcutaneously AC BID DX: E11.8 for 90 Active CPAP mask as directed decrease pressure by 2 dx: G 47.33 for 999 days [facility] fax # August, Active CPAP Machine as directed 4-20 mmHg dx: G47.33 August, Active Torsemide 20 MG 1 1/2 ablet Orally every morning for 90 day(s) Active Pen [place] 31G X 5 MM as directed subcutaneously once daily for 30 Days Apr, Active PROCEDURES No Information RESULTS No Results REASON FOR VISIT ALICIA form MEDICAL (GENERAL) HISTORY Type Description Date Medical [...] 1 christa dysfx, AV sclero sis, trace AR/ND, no evidence of bubble passage form R [...] Orally every morning for 90 day(s) Pen [place] 31G X 5 MM as directed subcutaneously once daily for 30 Days Apr, Apixaban 5 MG 1 tab Orally bid for 90 day(s) CPAP mask as directed decrease pressure by 2 dx: G 47.33 for 999 days August, Tresiba FlexTouch 200 UNIT/ML 10 units Subcutaneous at bedtime f or 90 day(s) Rosuvastatin Calcium 20 MG 1 tablet Orally Daily for 90 day(s) Omeprazole 40 MG 1 capsule Orally Once a day for 90 day(s) Fluticasone Propionate 50 MCG/ACT 2 sprays in each nos tril Nasally every morning for 90 day(s) Ammonium Lactate 12 % 1 application Externally Twi ce a day to bothb feet for 30 Days Allopurinol 300 MG 1 tablet Orally Once a day for 90 day(s) Aspirin 81 MG 1 tablet Orally Once a day Systane Ultra 0.4-0.3 % 1 drop each eye Ophthalmic QID Cyanocobalamin 500 MCG 1 tablet Orally Once a day for 90 day(s) FreeStyle Ghulam 14 Day Sensor - as directed subcutaneo usly DX: E11.8 for 30 Days Jan, metFORMIN HCl ER 500 MG 1 tab Orally AC BID for 90 day(s) Potassium Chloride 10 MEQ 1 tablet Orally Twice a day for 90 day (s) Glimepiride 4 MG 1 tab Orally AC BID for 90 day(s) Voltaren 1 % clarification 5 gm to r knee , r index finger Transdermal four times daily as needed for 30 Days Cholecalciferol 5000 UNIT 1 capsule Orally Once a day for 90 day (s) Next Appt Details Provider Name:Landen Dyson, 2021-05-04 0 1:00:00 PM, [address] [facility], , [place], [address], Insurance Providers Payer Name Payer Address Payer Phone Insured Name Patient Relati onship to Insured Coverage Start Date Coverage End Date [facility] [employer] [facility] [address] [address] [facility] [address] INA SORIANO
--- OUTSIDE RECORDS SUMMARY | 2021-03-12 20:00 | CCD ---
Author Author [facility] Organization [facility] Address Unknown Phone Unavailable Care Team Providers Care Salesperson New Cars Name Role Phone Landen Dyson Unavailable PROBLEMS Type Condition ICD9-CM Code [id number] Code Onset Dates Condition S tatus W/U Status Risk SNOMED Code Notes Problem DJD (degenerative joint disease), 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 Active confirmed 972193583 Problem Hyperlipidemia E78.5 Active confirmed 45392 004 Problem Vitamin B12 deficiency E53.8 Active confirmed 868933912 Problem Vitamin D deficiency E55.9 Active confirmed 86782921 Problem GERD (gastroesophageal reflux disease) K21.9 A ctive confirmed 883698114 Problem Primary osteoarthritis of both knees M17.0 Act jasen confirmed 580649580 Problem CKD (chronic kidney disease) stage 3, GFR 30-59 ml/min N18.3 Active confirmed 033819675 Problem 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.511 Active confirmed 995216963962244 Problem Non-seasonal allergic rhinitis, unspecified trigger J30.89 Active confirmed 06888104 Problem Essential (primary) hypertension I10 Active conf irmed 13716018 Problem Chronic diastolic (congestive) heart failure I50.3 2 Active confirmed 953457508 Problem 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.8 Active confirmed 485743028 Problem Gout M10.9 Active confirmed 84627087 Problem Mild dementia F03.90 Active confirmed 140368 927843497 Problem Ataxia R27.0 Active confirmed 66268689 Problem 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 Active confirmed 230 161122 Problem Seizure disorder G40.909 Active confirmed 12 6491840 Problem PVD (peripheral vascular disease) I73.9 Active confirmed 774749129 Problem Iron deficiency anemia, unspecified iron deficiency an emia type D50.9 Active confirmed 85289321 Problem 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 Active confirmed 259068981 Problem Dry eyes, bilateral H04.123 Active confirmed 744984700 Problem 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 Active confirmed 43600141 Problem Obstructive sleep apnea G47.33 Active confirmed 92969331 Problem 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 Active confirmed 358382004 Problem Sensorineural hearing loss (SNHL) of both ears H90 .3 Active confirmed 484086337 Problem Overweight E66.3 Active confirmed 886538490 Problem Prostate cancer C61 Active confirmed 3990 46237 Problem Skin ulcer of left heel, limited to breakdown of skin L97.421 Active confirmed 098924134 Problem 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 Active confirmed 439921273 Problem Xerosis cutis L85.3 Active confirmed 647561 00 Problem MIHIR (obstructive sleep apnea) G47.33 Active confirm ed 22365042 ALLERGIES Allergen (clinical drug ingredient) Drug/Non Drug Allergy do cumented on EMR Reaction Allergy Type Onset Date Status evironmental watery eyes,sneezing Non Drug Allergy Active ENCOUNTERS from 1935 to 2021-03-01 Encounter Location Date Provider Diagnosis [address] [phone] [place] [address] Feb, Landen Dyson IMMUNIZATIONS Vaccine Route Administration Date [...] School Language: Question Answer Notes Languages spoken: Montserratian Gnosticist: Question Answer Notes Gnosticist No christian beliefs that would impact health care. Sexual [...] DX: R27.0 for 30 Days fax to [facility] [phone] Oct, Active OneTouch Verio - USE TWO [...] knee Daily for 30 Days fax to [facility] [phone] Jun, Active Lancets - marty contour ez subcutaneously AC BID DX: E11.8 for 90 Active CPAP mask as directed decrease pressure by 2 dx: G 47.33 for 999 days [facility] fax # August, Active CPAP Machine as directed 4-20 mmHg dx: G47.33 August, Active Torsemide 20 MG 1 1/2 ablet Orally every morning for 90 day(s) Active Pen [place] 31G X 5 MM as directed subcutaneously [...] 1 christa dysfx, AV sclero sis, trace AR/[place], no evidence of bubble passage form R [...] Orally every morning for 90 day(s) Pen [place] 31G X 5 MM as directed subcutaneously [...] Name:Landen Dyson, 2021-05-04 0 1:00:00 PM, [address] [facility], , [place], [address], Insurance Providers Payer Name Payer Address Payer Phone Insured Name Patient Relati onship to Insured Coverage Start Date Coverage End Date [facility] [address] [address] [facility] [address] INA SORIANO
--- OUTSIDE RECORDS SUMMARY | 2021-03-12 20:00 | CCD ---
Author Author [facility] Organization [facility] Address Unknown Phone Unavailable Care Team Providers Care Sweat Band Sewer Name Role Phone Landen Dyson Unavailable PROBLEMS Type Condition ICD9-CM Code [id number] Code Onset Dates Condition S tatus W/U Status Risk SNOMED Code Notes Problem DJD (degenerative joint disease), 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 Active confirmed 986692570 Problem Hyperlipidemia E78.5 Active confirmed 78173 004 Problem Vitamin B12 deficiency E53.8 Active confirmed 591987142 Problem Vitamin D deficiency E55.9 Active confirmed 09863841 Problem GERD (gastroesophageal reflux disease) K21.9 A ctive confirmed 230450698 Problem Primary osteoarthritis of both knees M17.0 Act jasen confirmed 748754420 Problem CKD (chronic kidney disease) stage 3, GFR 30-59 ml/min N18.3 Active confirmed 413240788 Problem 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.511 Active confirmed 177192726709718 Problem Non-seasonal allergic rhinitis, unspecified trigger J30.89 Active confirmed 78182186 Problem Essential (primary) hypertension I10 Active conf irmed 97473942 Problem Chronic diastolic (congestive) heart failure I50.3 2 Active confirmed 243812426 Problem 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.8 Active confirmed 585859572 Problem Gout M10.9 Active confirmed 83937802 Problem Mild dementia F03.90 Active confirmed 246061 788492610 Problem Ataxia R27.0 Active confirmed 59442808 Problem 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 Active confirmed 230 438732 Problem Seizure disorder G40.909 Active confirmed 12 1821835 Problem PVD (peripheral vascular disease) I73.9 Active confirmed 033706462 Problem Iron deficiency anemia, unspecified iron deficiency an emia type D50.9 Active confirmed 36867917 Problem 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 Active confirmed 887144321 Problem Dry eyes, bilateral H04.123 Active confirmed 564572651 Problem 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 Active confirmed 65279094 Problem Obstructive sleep apnea G47.33 Active confirmed 32045681 Problem 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 Active confirmed 527429542 Problem Sensorineural hearing loss (SNHL) of both ears H90 .3 Active confirmed 495639753 Problem Overweight E66.3 Active confirmed 491999253 Problem Prostate cancer C61 Active confirmed 3990 51888 Problem Skin ulcer of left heel, limited to breakdown of skin L97.421 Active confirmed 761994294 Problem 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 Active confirmed 084761351 Problem Xerosis cutis L85.3 Active confirmed 360401 00 Problem MIHIR (obstructive sleep apnea) G47.33 Active confirm ed 38420495 ALLERGIES Allergen (clinical drug ingredient) Drug/Non Drug Allergy do cumented on EMR Reaction Allergy Type Onset Date Status evironmental watery eyes,sneezing Non Drug Allergy Active ENCOUNTERS from 1935 to 2021-01-16 Encounter Location Date Provider Diagnosis [address] [phone] [place] [address] Dec, Landen Dyson IMMUNIZATIONS Vaccine Route Administration [...] School Language: Question Answer Notes Languages spoken: Syrian Samaritan: Question Answer Notes Samaritan No spiritism beliefs that would impact health care. Sexual [...] R27.0 for 30 Days fax to [place] [phone] Oct, Active OneTouch Verio - USE TWO TIMES A DAY for 50 Active Knee Compression Sleeve/L/XL 1 as directed R60.9 Daily for 99 mo [facility] Apr, Active Glimepiride 4 MG 1 [...] knee Daily for 30 Days [facility] [phone] Jun, Active Lancets - marty contour ez subcutaneously AC BID DX: E11.8 for 90 Active CPAP mask as directed decrease pressure by 2 dx: G 47.33 for 999 days [facility] fax # August, Active CPAP Machine as directed 4-20 mmHg dx: G47.33 August, Active Torsemide 20 MG 1 1/2 ablet Orally every morning for 90 day(s) Active Pen [place] 31G X 6 MM as directed subcutaneously [...] 1 christa dysfx, AV sclero sis, trace AR/[place], no evidence of bubble passage form R [...] Orally every morning for 90 day(s) Pen [place] 31G X 6 MM as directed subcutaneously [...] Name:Landen Dyson, 2021-05-04 0 1:00:00 PM, [address] [facility], , [place], [address], Insurance Providers Payer Name Payer Address Payer Phone Insured Name Patient Relati onship to Insured Coverage Start Date Coverage End Date [facility] [address] [address] [facility] [address] [phone] INA SORIANO
--- OUTSIDE RECORDS SUMMARY | 2021-03-12 20:00 | CCD | Continuity of Care Document ---
Author Author [facility] Organization Unknown Address [address] [place] [address] Phone [phone] Care Team Providers Care Brain Wave Technician Name Role Phone AUTM Unavailable Landen Dyson M.D. AUTM [phone] AUTM Unavailable Problems Description No Information Available [...] lb BMI (Body Mass Index) 37.7 kg/m2 [place] Body Weight 160 lb Weight 115.668 kg BSA (Body Surface Area) 2.29 m2 10/20/2020 2:30pm BP Systolic 130 mmHg BP Diastolic 70 mmHg Heart Rate 114 /min O2 % BldC Oximetry 94 % Height 69 inches 5'9" Weight 252.00 lb BMI (Body Mass Index) 37.2 kg/m2 Blum Body Weight 160 lb Weight 114.307 kg BSA (Body Surface Area) 2.28 m2 Results Description No Information Available Procedures Date Code Description Status 02/01/2021 79102 Office/Outpatient Established Lo w MDM 20-29 Min Completed 10/20/2020 61109 Office/Outpatient New Low MDM 30 -44 Minutes Completed Medical Devices Description No Information Available Encounters Type Date Location Provider Dx Diagnosis Office Visit 02/01/2021 3:15p [facility] Kaitlyn Winter, N.P. G47.33 Obstructive sleep apnea (adult) (pediatr ic) Office Visit 10/20/2020 2:45p [facility] Kaitlyn Winter, N.P. G47.33 Obstructive sleep apnea (adult) (pediatr ic) Assessments Date Code Description Provider 02/01/2021 G47.33 Obstructive sleep apnea (adult) (pediatric) Cristiana Winter, N.P. 10/20/2020 G47.33 Obstructive sleep apnea (adult) (pediatric) Cristiana Winter, N.P. Plan of Treatment Future Appointment(s):* 02/05/2022 2:15 pm - Cristiana Winter, N.P. at [facility] 02/01/2021 - Cristiana Winter, N.P.* G47.33 Obstructive sleep apnea (adult) (pediatric) * * Comments:* 1. No changes were made to the CPAP pressure at today's visit. 2. The patient is aware to call with any problems related to CPAP use, snoring through the mask or return of daytime sleepiness. 3. Per the patient's request, a CPAP supply order has been sent to the [facility]. * Follow up:* 1. Follow up in one year to reassess CPAP compliance or sooner should problems develop. Functional Status Description No Information Available Mental Status Mental Condition Comment Date Status Cognitive ability not impaired A ctive Referrals Refer to Reason for Referral Status Appt Date Grant Solorzano R.Elyssa. ABNORMAL HST Closed 09/28 [facility] [address] [place] [address] [phone]
--- OUTSIDE RECORDS SUMMARY | 2021-03-12 20:00 | CCD | Continuity of Care Document ---
Author Author [facility] Organization Unknown Address [address] [place] [address] Phone [phone] Care Team Providers Care Display Director Name Role Phone AUTM Unavailable Landen Dyson M.D. AUTM [phone] AUTM Unavailable Problems Description No Information Available [...] lb BMI (Body Mass Index) 37.7 kg/m2 [place] Body Weight 160 lb Weight 115.668 kg BSA (Body Surface Area) 2.29 m2 10/20/2020 2:30pm BP Systolic 130 mmHg BP Diastolic 70 mmHg Heart Rate 114 /min O2 % BldC Oximetry 94 % Height 69 inches 5'9" Weight 252.00 lb BMI (Body Mass Index) 37.2 kg/m2 [place] Body Weight 160 lb Weight 114.307 kg BSA (Body Surface Area) 2.28 m2 Results Description No Information Available Procedures Date Code Description Status 10/20/2020 32608 Office/Outpatient New Low MDM 30 -44 Minutes Completed Medical Devices Description No Information Available Encounters Type Date Location Provider Dx Diagnosis Office Visit 10/20/2020 2:45p [facility] Kaitlyn Winter N.[place] G47.33 Obstructive sleep apnea (adult) (pediatr ic) Assessments Date Code Description Provider 02/01/2021 G47.33 Obstructive sleep apnea (adult) (pediatric) Cristiana Winter N.[place] 10/20/2020 G47.33 Obstructive sleep apnea (adult) (pediatric) Cristiana Winter, N.P. Plan of Treatment Future Appointment(s):* 02/05/2022 2:15 pm - Cristiana Winter N.[place] at [facility] 02/01/2021 - Cristiana Winter, N.P.* G47.33 [...] supply order has been sent to the [facility]. * Follow up:* 1. Follow up in one year to reassess CPAP compliance or sooner should problems develop. Functional Status Description No Information Available Mental Status Mental Condition Comment Date Status Cognitive ability not impaired A ctive Referrals Refer to Reason for Referral Status Appt Date Grant Solorzano R.P.A.-C. ABNORMAL HST Closed 09/28 [facility] [address] [place] [address] [phone]
--- OUTSIDE RECORDS SUMMARY | 2021-03-12 20:00 | CCD ---
Author Author [facility] Organization [facility] Address Unknown Phone Unavailable Care Team Providers Care Personnel Recruiter Name Role Phone Landen Dyson Unavailable PROBLEMS Type Condition ICD9-CM Code [id number] Code Onset Dates Condition S tatus W/U Status Risk SNOMED Code Notes Problem DJD (degenerative joint disease), 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 Active confirmed 069604485 Problem Hyperlipidemia E78.5 Active confirmed 38780 004 Problem Vitamin B12 deficiency E53.8 Active confirmed 960713715 Problem Vitamin D deficiency E55.9 Active confirmed 24529104 Problem GERD (gastroesophageal reflux disease) K21.9 A ctive confirmed 476191512 Problem Primary osteoarthritis of both knees M17.0 Act jasen confirmed 436295838 Problem CKD (chronic kidney disease) stage 3, GFR 30-59 ml/min N18.3 Active confirmed 119317661 Problem 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.511 Active confirmed 402078558847917 Problem Non-seasonal allergic rhinitis, unspecified trigger J30.89 Active confirmed 72833082 Problem Essential (primary) hypertension I10 Active conf irmed 43754175 Problem Chronic diastolic (congestive) heart failure I50.3 2 Active confirmed 441676306 Problem 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.8 Active confirmed 712482964 Problem Gout M10.9 Active confirmed 65337382 Problem Mild dementia F03.90 Active confirmed 255102 958752171 Problem Ataxia R27.0 Active confirmed 76895223 Problem 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 Active confirmed 230 109785 Problem Seizure disorder G40.909 Active confirmed 12 7953507 Problem PVD (peripheral vascular disease) I73.9 Active confirmed 114461893 Problem Iron deficiency anemia, unspecified iron deficiency an emia type D50.9 Active confirmed 07415495 Problem 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 Active confirmed 423226489 Problem Dry eyes, bilateral H04.123 Active confirmed 948198317 Problem 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 Active confirmed 71213120 Problem Obstructive sleep apnea G47.33 Active confirmed 57923088 Problem 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 Active confirmed 598229204 Problem Sensorineural hearing loss (SNHL) of both ears H90 .3 Active confirmed 950354669 Problem Overweight E66.3 Active confirmed 185045157 Problem Prostate cancer C61 Active confirmed 3990 10776 Problem Skin ulcer of left heel, limited to breakdown of skin L97.421 Active confirmed 005236802 Problem 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 Active confirmed 810462499 Problem Xerosis cutis L85.3 Active confirmed 772952 00 Problem MIHIR (obstructive sleep apnea) G47.33 Active confirm ed 17057546 ALLERGIES Allergen (clinical drug ingredient) Drug/Non Drug Allergy do cumented on EMR Reaction Allergy Type Onset Date Status evironmental watery eyes,sneezing Non Drug Allergy Active ENCOUNTERS from 1935 to 2021-02-03 Encounter Location Date Provider Diagnosis [address] [phone] [place] [address] 08 Jan, 2021 Landen Dyson IMMUNIZATIONS Vaccine Route Administration Date [...] School Language: Question Answer Notes Languages spoken: Russian Spiritism: Question Answer Notes Spiritism No judaism beliefs that would impact health care. Sexual [...] R27.0 for 30 Days fax to [facility] [phone] Oct, Active OneTouch Verio - USE TWO TIMES A DAY for 50 Active Knee Compression Sleeve/L/XL 1 as directed R60.9 Daily for 99 mo [facility] Apr, Active Glimepiride 4 MG 1 [...] knee Daily for 30 Days [facility] [phone] Jun, Active Lancets - marty contour ez subcutaneously AC BID DX: E11.8 for 90 Active CPAP mask as directed decrease pressure by 2 dx: G 47.33 for 999 days [facility] fax # August, Active CPAP Machine as directed 4-20 mmHg dx: G47.33 August, Active Torsemide 20 MG 1 1/2 ablet Orally every morning for 90 day(s) Active Pen [place] 31G X 5 MM as directed subcutaneously [...] 1 christa dysfx, AV sclero sis, trace AR/OR, no evidence of bubble passage form R [...] Orally every morning for 90 day(s) Pen [place] 31G X 5 MM as directed subcutaneously [...] Name:Landen Dyson, 2021-05-04 0 1:00:00 PM, [address] [facility], , [place], [address], Insurance Providers Payer Name Payer Address Payer Phone Insured Name Patient Relati onship to Insured Coverage Start Date Coverage End Date [facility] [facility] [address] [address] [facility] [address] [phone] INA SORIANO
--- OUTSIDE RECORDS SUMMARY | 2021-03-12 20:00 | CCD ---
Author Author [facility] Organization [facility] Address Unknown Phone Unavailable Care Team Providers Care Cryptologist Name Role Phone Landen Dyson Unavailable PROBLEMS Type Condition ICD9-CM Code SCC99-OE Code Onset Dates Condition S tatus W/U Status Risk SNOMED Code Notes Problem DJD (degenerative joint disease), 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 Active confirmed 051548404 Problem Hyperlipidemia E78.5 Active confirmed 78249 004 Problem Vitamin B12 deficiency E53.8 Active confirmed 518548391 Problem Vitamin D deficiency E55.9 Active confirmed 85965712 Problem GERD (gastroesophageal reflux disease) K21.9 A ctive confirmed 824775333 Problem Primary osteoarthritis of both knees M17.0 Act jasen confirmed 051376369 Problem CKD (chronic kidney disease) stage 3, GFR 30-59 ml/min N18.3 Active confirmed 027813805 Problem 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.511 Active confirmed 695310586367698 Problem Non-seasonal allergic rhinitis, unspecified trigger J30.89 Active confirmed 98473205 Problem Essential (primary) hypertension I10 Active conf irmed 06749726 Problem Chronic diastolic (congestive) heart failure I50.3 2 Active confirmed 751350651 Problem 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.8 Active confirmed 840849171 Problem Gout M10.9 Active confirmed 18987539 Problem Mild dementia F03.90 Active confirmed 057501 997694200 Problem Ataxia R27.0 Active confirmed 47467816 Problem 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 Active confirmed 230 210620 Problem Seizure disorder G40.909 Active confirmed 12 6147535 Problem PVD (peripheral vascular disease) I73.9 Active confirmed 630947660 Problem Iron deficiency anemia, unspecified iron deficiency an emia type D50.9 Active confirmed 19524197 Problem 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 Active confirmed 551239524 Problem Dry eyes, bilateral H04.123 Active confirmed 922514724 Problem 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 Active confirmed 35742592 Problem Obstructive sleep apnea G47.33 Active confirmed 28945345 Problem 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 Active confirmed 766611468 Problem Sensorineural hearing loss (SNHL) of both ears H90 .3 Active confirmed 074418055 Problem Overweight E66.3 Active confirmed 999659106 Problem Prostate cancer C61 Active confirmed 3990 11667 Problem Skin ulcer of left heel, limited to breakdown of skin L97.421 Active confirmed 203041397 Problem 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3 ; Xerosis cutis L85.3 ; Chronic diastolic (congestive) heart failure I50.32 ; MIHIR (obstructive sleep apnea) G47.33 ; 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 ; PVD (peripheral vascular disease) I73.9 ; 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 ; DJD (degenerative joint disease), 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 ; 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.511 ; Non-seasonal allergic rhinitis, unspecified trigger J30.89 ; Ataxia R27.0 ; Prostate cancer C61 ; Hyperlipidemia E78.5 ; 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 ; Essential (primary) hypertension I10 ; Iron deficiency anemia, unspecified iron deficiency anemia type D50.9 ; Mild dementia F03.90 ; Seizure disorder G40.909 ; Gout M10.9 ; Primary osteoarthritis of both knees M17.0 ; 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 Sexual [...] smoked? > 10 years REASON FOR REFERRAL from 1933 to 2021-01-19 Reason [facility]ogram[facility] Diagnosis 1 Sensorineural hearing loss ( SNHL) of both ears (H90.3) Referral Organization [facility] Susan Referring Provider First Name Landen Referring Provider Last Name Kiel Referring Provider Specialty Family Medicine Referred Provider [facility],Audiology Referred Provider Specialty Audiologists Referral Priority Routine General Notes Xenia Geller 01/19/2021 9:24:37 AM > Referral faxedXenia Geller 01/19/2021 4:34:00 PM > referral faxed VITAL SIGNS Weight 253.6 lbs Nov, Weight-kg 115.03 kg Nov, Height 73 in Nov, BMI 33.45 kg/m2 Nov, Heart Rate 106 /min Nov, Respiratory Rate 18 /min Nov, Temperature 97.8 degrees Fahrenheit Nov, Oximetry 94% Nov, Blood pressure systolic 128 mm Hg Nov, Blood pressure diastolic 74 mm Hg Nov, MEDICATIONS Medication SIG (Take, Route, Frequency, Duration) [...] 200 UNIT/ML 10 units Subcutaneous at bedtime or 90 day(s) Active Rosuvastatin Calcium 20 [...] BY MOUTH TWICE A DAY BEFORE MEALS r 90 Active Blood Glucose Test - [...] DX: R27.0 for 30 Days fax to [facility] [phone] Oct, Active OneTouch Verio - USE TWO TIMES A DAY for 50 Active Knee Compression Sleeve/L/XL 1 as directed R60.9 Daily for 99 mo nt Apr, Active Glimepiride 4 MG 1 tab [...] knee Daily for 30 Days fax to [facility] [phone] Jun, Active Lancets - marty contour ez subcutaneously AC BID DX: E11.8 for 90 Active CPAP mask as directed decrease pressure by 2 dx: G 47.33 for 999 days [facility] fax # August, Active CPAP Machine as directed 4-20 mmHg dx: G47.33 August, Active Torsemide 20 MG 1 1/2 ablet Orally every morning for 90 day(s) Active Pen [place] 31G X 6 MM as directed subcutaneously once daily for 30 Days Apr, Active PROCEDURES No Information RESULTS No Results REASON FOR VISIT 12W, BW NOW MEDICAL (GENERAL) HISTORY Type Description Date Medical [...] 1 christa dysfx, AV sclero sis, trace AR/MT, no evidence of bubble passage form R [...] Notes Treatment Notes Treatm ent Clinical Notes Nov, Diabetes mellitus type 2 with complications (ICD -10 - E11.8) din 17, down 19-20 on deglun U-200 10 QHS (19-20), glim 4 BID, met XR 500 BID uisng FSL2 12/23/20 7.1 c excellent 14D FSL2 m158, TAIBR 7 >250/25/68/0; ergo CCR 05/12/20 stopped lester 50 and + deglun U-200 10 QHS 03/14/20 met 500 QD to 500 BID [...] A1c up to 6.4 04/2016 LES/creatinin 38 Nov, Sensorineural hearing loss (SNHL) of both ears ( ICD-10 - H90.3) Nov, Xerosis cutis (ICD-10 - L85.3) Nov, Chronic diastolic (congestive) heart failure (IC D-10 - I50.32) Euvolemic on torse 30 qAM, K 10 BID 07/14/20 19/0.8, 4.8, 1.8, 325 03/02/20 20/1.1, 4, BNP 392 on torse 20 qAM, [...] K 10 BID during hospitalization for CHF Nov, MIHIR (obstructive sleep apnea) (ICD-10 - G47.33) 09/27/20 p dw patient/daughter; now consent to in-[facility] NPSG 09/02/20 HST: BRITTANIE 63 c SaO2 to 72% Nov, MGUS (monoclonal gammopathy of unknown significance) (ICD-10 - D47.2) 07/14/20 sIFE c IgG kappa 12/23/20 14.5, 98, 7.5, 238K, harshil 26 07/14/20 14.2, 98, 7K, 241K 09/2018 15.1, 98, r35/1.3 s supplement 12/23/20 SPEP M spike 0.5 12/23/20 sKL 50/16/3 Nov, PVD (peripheral vascular disease) (ICD-10 - I73. 9) Patient defers arteriogram-continue asa/DOAC R>L LE dusky R>L foot c persistent "cold" sensation s ulceration, no classic claudication sx, BUT very INACTIVE 2 spinal stenosis rpain 09/08/19 check arterial US-never done by patient; therefore, reordered: 03/16/20 BLE arterial US c minimal narrowing s focal stenosis, noraml B bi/triphasic wave forms Nov, Internal carotid aneurysm (ICD-10 - I67.1) Patient defers further burdick 06/22/20 MRA brain incidentally detected R cavernous ICA 4 mm laterally projecting a Nov, DJD (degenerative joint disease), lumbar (ICD-10 - M47.816) Contingency: LESI 05/30/20 patient left [facility] office s being seen 04/27/20 MRI L35 severe spinal stenosis compression TS and B L4/5 NR; therefore, referred to [facility] for LESI trial 10/2017 weaned self off HC 12/08/16 SS started HC 5 1/2 tab BID (to use instead of any remaining tramadol) 09/2014 i changed Flexeril 10 TID prn to tizanidine 2 BID prn Patient feels tramadol worked better than Tylenol #3 Nov, Chronic deep vein thrombosis (DVT) of femoral [...] changed to apix 5 BID/ asa 81 Nov, Non-seasonal allergic rhinit is, unspecified trigger (ICD-10 - J30.89) Stable on FP 2qAM prn main sx 2 phlegm production, worse qAM Contingency: jaison 09/08/19 + FP 2 qAM Nov, Ataxia (ICD-10 - R27.0) No falls since using RW 2 peripheral neuropathy 2 lumbar radic/DM, PVD and deconditioning 07/06/20 + home PT p TIA Nov, Prostate cancer (ICD-10 - C61) Patient refuses any further workup/rx follows with Dr. Gutierrez-AL 07/31/16 who recommended 3M which patient NS and REFUSES fu and repeat CT AP/WBBS 06/17/20 19 12/07/19 18 09/02/19 22 03/2018 15.3 11/2017 13.5 03/2017 [...] and pateint is favoring XRT with Dr. Benedr. We referred back to him. 12/2013 given patient meets critieria for biological recurrence by Remington criteria (with a eula in 09/2001), patient changed his mind and consented to repeat WBSC, CT A/P s/c in 12/2013 which was negative x for "rare nonspecific pelvic LN". 11/2013 6.6 03/2013 5.4 12/2011 5.6 04/2011 5.2 04/2010 PSA 4.2 09/2001 1.8 Nov, Hyperlipidemia (ICD-10 - E78.5) 06/22/20 68/58/65 on rosuva 20 09/02/19 182/49/134 off rosuva 20 for unknown reason; therefore, restarted 11/2017 69/51/117, 128 03/2017 81/57/80, 74, on rosuva 20 09/02/19 2.9, 1.0 03/2018 2.1, 1.1 09/2014 2.0 07/2012 1.01 February 2009 TSH 0.8 Lipitor caused myalgia, Zocor 20 qd ineffective Nov, Recurrent cerebrovascular accidents (CVAs) (ICD- 10 - I63.9) No recurrent symptoms on apix, asa 81 06/22/20 TIA c dysarthria-no change to regimen (was on DOAC c asa 81) grade 1 christa dysfx, AV sclerosis, trace AR/MT, no evidence of bubble passage form R to L-06/23/20 [facility] Nov, Essential (primary) hypertension (ICD-10 - I10) Good control on torse as per CHF 09/08/19 patient stopped benaz 20 QHS given symptomatic hypotension c SBP to 80s K/Mg as per CHF 06/2013 EKG NSR 91 bpm c frequent PVCs, low voltage, inferior repolarization abnormalities Nov, Iron deficiency anemia, unsp ecified iron deficiency anemia type (ICD-10 - D50.9) caution on chronic clopid Contingency: Cologuard patient refuses repeat endoscopy hgb as per MGUS Nov, Mild dementia (ICD-10 - F03.90) Patient/family defer treatment at this point 12/2016 PHN consult re medication set-up Nov, Seizure disorder (ICD-10 - G40.909) No seizure activity since 10/2016 Strongly encouraged NOT use to any remaining tramadol and NO driving! 04/10/17 Dr. Ramirez stopped leve-did not feel patient had seizure 04/08/2017 leve 15 on 500 BID 10/2015 leve 500 BID started p seizure p CVA Nov, Gout (ICD-10 - M10.9) No recurrent flares [...] L mid [facility] p [facility] lchicine 0.6 BID started c improvement (but also rxed as cellulitis as per c ceftaroline/doxy 02/2016 first flare L mid foot-resolved on own p ~4W Nov, Primary osteoarthritis of both knees (ICD-10 - M 17.0) Stable on Voltaren QID prn Contingency: injection (04/15/17 patient scheduled for B knee injection but then deferred given minimal pain) Nov, Esophageal diverticulum (ICD-10 - Q39.6) Patient is asymptomatic if eats slowly Contingency: EGD if any irregularity Nov, CKD (chronic kidney disease) stage 3, GFR 30-59 ml/min (ICD-10 - N18.3) Continue off all po NSAIDs K/Mg as per CHF PTH as per vitamin D hgb as per Fe Nov, Vitamin B12 deficiency (ICD-10 - E53.8) hemoglobin as per CKD 11/2017 1024 on 500 03/2017 1415 on 1000; therefore, decreased to 500 07/2015 897 03/2014 1146 12/2011 B12 305 therfore 500 increased to 1000 qd 03/2017 894 12/2011 RBC folate 496 07/2015 23%, 9 s supplement Nov, Vitamin D deficiency (ICD-10 - E55.9) 07/14/20 70, 9.3, 52 09/2018 18, 8.6, 136; therefore, encouraged compliance 03/2018 15, 8.7, PTH 139; therefore, +D3 5K Nov, GERD (gastroesophageal reflux disease) (ICD-10 - K21.9) Stable on omep 40 qAM Nov, Overweight (ICD-10 - E66.3) Encouraged weight loss Nov, Dry eyes, bilateral (ICD-10 - H04.123) PLAN OF TREATMENT Medication Medication Name Sig Start Date Stop Date Torsemide 20 MG 1 1/2 ablet Orally every morning for 90 day(s) [place] 31G X 6 MM as directed subcutaneously [...] times daily as needed for 30 Days Treatment Notes Assessment Notes Clinical Notes Essential (primary) hypertension Good co ntrol on torse as per CHF09/08/19 patient stopped benaz 20 QHS given symptomatic hypotension c SBP to 80sK/Mg as per CHF06/2013 EKG NSR 91 bpm c frequent PVCs, low voltage, inferior repolarizati on abnormalities Recurrent cerebrovascular accidents (CVAs) No recurrent symptoms on apix, asa 8106/22/20 TIA c dysarthria-no change to regimen (was on DOAC c asa 81)grade 1 christa dysfx, AV sclerosis, trace AR/MT, no evidence of bubble passage form R to L-06/23/20 TTE-[facility] Mild dementia Patient/family defer treatment at this point12/2016 PHN consult re medication set-up Iron deficiency anemia, unspecified iron deficiency anemia t ype caution on chronic clopidContingency: Cologuardpatient refuses repeat endoscopyhgb as per MGUS Gout No recurrent flaresf avor flares 2 [...] L mid foot p blunt trauma-hospitalized at [facility] 6.6, colchicine 0.6 BID started c improvement (but also rxed as cellulitis as per c ceftaroline/doxy104/2015 first flare L mid foot-resolved on own p ~4W Seizure disorder No seizure activity since 10/2016Strongly encouraged NOT use to any remaining tramadol and NO driving!04/10/17 Dr. Ramirez stopped leve-did not feel patient had pwcefyb8004/08/2017 leve 15 on 500 BID10/2015 leve 500 BID started p seizure p CVA Esophageal diverticulum Patient is asymp tomatic if eats slowlyContingency: EGD if any irregularity Primary osteoarthritis of both knees Sta ble on Voltaren QID prnContingency: injection (04/15/17 patient scheduled for B knee injection but then deferred given minimal pain) Hyperlipidemia 06/22/20 68/58/65 on rosuva 182/49/134 off rosuva 20 for unknown reason; therefore, restarted11/2017 69/51/117, 41028/2016 81/57/80, 74, on rosuva 2.9, 1.012/2017 2.1, 1. 2.07/2012 1.6October 2009 TSH 0.8Lipitor caused myalgia, Zocor 20 qd ineffective Prostate cancer Patient refuses any further workup/rxfollows with Dr. Gutierrez-AL 07/31/16 who recommended 3M which patient NS and REFUSES fu and repeat CT AP/WBBS06/17/20 198/02/15 185 2212 15. 13[address] AP s/c NAD/WBBS c new uptake at T8 and T10-06/2016 MRI thoracic spine c bulges s cord compression/mets/fracture; therefore, Dr. Henriquez referred patient to Ortho04/2016 10.1; therefore, referred back to 8. 8.1-drawn by Yulia, who because of decline deferred HT for now c recheck of PSA 9.71/ Yulia referred to Dr. Gutierrez for hormonal therapy which patient xoovqzhb44/2014 8.1, therefore referred back to Dr. Bender02/11/14 given there no evidence of distant metastases with a biological recurrence, we d/w salvage rx and pateint is favoring XRT with Dr. Bender. We referred back to him.12/2013 given patient meets critieria for biological recurrence by Remington criteria (with a eula in 09/2001), patient changed his mind and consented to repeat WBSC, CT A/P s/c in 12/2013 which was negative x for "rare nonspecific pelvic LN".11/2013 6.612/2012 5. 5. 5. PSA 4. 1.8 Overweight Encouraged weight lo ss Diabetes mellitus type 2 with complications din 17, down 19-20on deglun U-200 10 QHS (19-20), glim 4 BID, met XR 500 BID uisng FSL28/ 7.1 c excellent 14D FSL2 m158, TAIBR 7 >250/25/68/0; ergo CCR05/12/20 stopped lester 50 and + deglun U- 200 10 QHS03/14/20 met 500 QD to 500 BID given [...] 2010 A1c up to 6. LES/creatinin 38 GERD (gastroesophageal reflux disease) S table on omep 40 qAM Chronic diastolic (congestive) heart failure Euvolemic on torse 30 qAM, K 10 BID07/14/20 19/0.8, 4.8, 1.8, 95303/08/16 20/1.1, 4, BNP 392 on torse 20 qAM, [...] K 10 BID during hospitalization for CHF MIHIR (obstructive sleep apnea) 09/27/20 p d w patient/daughter; now consent to [facility] NPSG09/02/20 HST: BRITTANIE 65 c SaO2 to 72% MGUS (monoclonal gammopathy of unknown significance) 07/14/20 sIFE c IgG kappa12/23/20 14.5, 98, 7.5, 238K, harshil 14.2, 98, 7K, 241K6 15.1, 98, r35/1.3 s supplement12/23/20 SPEP M spike 0.58 sKL PVD (peripheral vascular disease) Patien t defers arteriogram-continue asa/DOACR>L LE dusky R>L foot c persistent "cold" sensation s ulceration, no classic claudication sx, BUT very INACTIVE 2 spinal stenosis rpain09/08/19 check arterial US-never done by patient; therefore, reordered:03/16/20 BLE arterial US c minimal narrowing s focal stenosis, noraml B bi/triphasic wave forms Internal carotid aneurysm Patient defers further wu06/22/20 MRA brain incidentally detected R cavernous ICA 4 mm laterally projecting a DJD (degenerative joint disease), lumbar Contingency: LES05/30/20 patient left [facility] office s being seen04/27/20 MRI L35 severe spinal stenosis compression TS and B L4/5 NR; therefore, referred to [facility] for LESI trial10/2017 weaned self off HC12/08/16 SS started HC 5 1/2 tab BID (to use instead of any remaining tramadol)09/2014 i changed Flexeril 10 TID prn to tizanidine 2 BID prnPatient feels tramadol worked better than Tylenol #3 CKD (chronic kidney disease) stage 3, GFR 30-59 ml/min Continue off all po NSAIDsK/Mg as per CHFPTH as per vitamin Dhgb as per Fe Vitamin D deficiency 07/14/20 70, 9.3, 52 09/2018 18, 8.6, 136; therefore, encouraged batjxpaomq35/2018 15, 8.7, PTH 139; therefore, +D3 5K Vitamin B12 deficiency hemoglobin as per CKD11/2017 1024 on 0836503/2017 1415 on 1000; therefore, decreased to 6232305/2013 80862/2011 B12 305 therfore 500 increased to 1000 qd03/2017 RBC folate 23%, 9 s supplement Chronic deep vein thrombosis (DVT) of femoral [...] changed to apix 5 BID/ asa 81 Non-seasonal allergic rhinitis, unspecified trigger Stable on FP 2qAM prnmain sx 2 phlegm production, worse qAMContingency: lor09/08/19 + FP 2 qAM Ataxia No falls since using RW2 peripheral neuropathy 2 lumbar radic/DM, PVD and deconditioning07/06/20 + home PT p TIA Future Test Test Name Order Date CBC with Differential [id number] FERRITIN [id number] SERUM PROTEIN ELECTROPHORESIS (SPEP) [id number] HEMOGLOBIN A1c [id number] PSA SCREENING [id number] NT-PRO BNP [id number] MAGNESIUM LEVEL [id number] Comprehensive Metabolic Profile (CMP) [id number] Referrals Referral Date Details audiogram-[facility] , Audiology [facility] Appt Details 3-4M, BW 1W prior Reason: Provider Name:Landen Dyson, 2021-05-04 0 1:00:00 PM, [address] [facility], , [place], [address], Insurance Providers Payer Name Payer Address Payer Phone Insured Name Patient Relati onship to Insured Coverage Start Date Coverage End Date [facility] [employer] [facility] [address] [address] [facility] [phone] INA SORIANO
--- OUTSIDE RECORDS SUMMARY | 2021-03-12 20:00 | CCD ---
Author Author [facility] Organization [facility] Address Unknown Phone Unavailable Care Team Providers Care Case Picker Name Role Phone Landen Dyson Unavailable PROBLEMS Type Condition ICD9-CM Code [id number] Code Onset Dates Condition S tatus W/U Status Risk SNOMED Code Notes Problem DJD (degenerative joint disease), 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 Active confirmed 187484419 Problem Hyperlipidemia E78.5 Active confirmed 71423 004 Problem Vitamin B12 deficiency E53.8 Active confirmed 830083865 Problem Vitamin D deficiency E55.9 Active confirmed 74400679 Problem GERD (gastroesophageal reflux disease) K21.9 A ctive confirmed 809304728 Problem Primary osteoarthritis of both knees M17.0 Act jasen confirmed 571577775 Problem CKD (chronic kidney disease) stage 3, GFR 30-59 ml/min N18.3 Active confirmed 098548758 Problem 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.511 Active confirmed 805678709778625 Problem Non-seasonal allergic rhinitis, unspecified trigger J30.89 Active confirmed 12452976 Problem Essential (primary) hypertension I10 Active conf irmed 10178515 Problem Chronic diastolic (congestive) heart failure I50.3 2 Active confirmed 540656089 Problem 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.8 Active confirmed 453549758 Problem Gout M10.9 Active confirmed 27062631 Problem Mild dementia F03.90 Active confirmed 527193 043219550 Problem Ataxia R27.0 Active confirmed 22116653 Problem 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 Active confirmed 230 625495 Problem Seizure disorder G40.909 Active confirmed 12 9384248 Problem PVD (peripheral vascular disease) I73.9 Active confirmed 580210445 Problem Iron deficiency anemia, unspecified iron deficiency an emia type D50.9 Active confirmed 76510634 Problem 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 Active confirmed 336040130 Problem Dry eyes, bilateral H04.123 Active confirmed 216070617 Problem 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 Active confirmed 75719950 Problem Obstructive sleep apnea G47.33 Active confirmed 48472483 Problem 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 Active confirmed 015000782 Problem Sensorineural hearing loss (SNHL) of both ears H90 .3 Active confirmed 085663826 Problem Overweight E66.3 Active confirmed 704618568 Problem Prostate cancer C61 Active confirmed 3990 29130 Problem Skin ulcer of left heel, limited to breakdown of skin L97.421 Active confirmed 952416517 Problem 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 Active confirmed 842079601 Problem Xerosis cutis L85.3 Active confirmed 739091 00 Problem MIHIR (obstructive sleep apnea) G47.33 Active confirm ed 23381064 ALLERGIES Allergen (clinical drug ingredient) Drug/Non Drug Allergy do cumented on EMR Reaction Allergy Type Onset Date Status evironmental watery eyes,sneezing Non Drug Allergy Active ENCOUNTERS from 1933 to 2021-02-14 Encounter Location Date Provider Diagnosis [address] [phone] [place] [address] Jan, Landen Dyson IMMUNIZATIONS Vaccine Route Administration [...] School Language: Question Answer Notes Languages spoken: Haitian Yarsanism: Question Answer Notes Yarsanism No roman catholic beliefs that would impact health care. Sexual [...] DX: R27.0 for 30 Days fax to [facility] [phone] Oct, Active OneTouch Verio - USE TWO TIMES A DAY for 50 Active Knee Compression Sleeve/L/XL 1 as directed R60.9 Daily for 99 mo [facility] Apr, Active metFORMIN HCl ER 500 MG [...] knee Daily for 30 Days fax to [facility] [phone] Jun, Active Lancets - marty contour ez subcutaneously AC BID DX: E11.8 for 90 Active CPAP mask as directed decrease pressure by 2 dx: G 47.33 for 999 days [facility] fax # August, Active CPAP Machine as directed 4-20 mmHg dx: G47.33 August, Active Torsemide 20 MG 1 1/2 ablet Orally every morning for 90 day(s) Active Pen [place] 31G X 5 MM as directed subcutaneously once daily for 30 Days Apr, Active PROCEDURES No Information RESULTS No Results REASON FOR VISIT Jarad Parmar MEDICAL (GENERAL) HISTORY Type Description Date Medical [...] 1 christa dysfx, AV sclero sis, trace AR/MD, no evidence of bubble passage form R [...] Orally every morning for 90 day(s) Pen [place] 31G X 5 MM as directed subcutaneously [...] Name:Landen Dyson, 2021-05-04 0 1:00:00 PM, [address] [facility], , [place], [address], Insurance Providers Payer Name Payer Address Payer Phone Insured Name Patient Relati onship to Insured Coverage Start Date Coverage End Date [facility] [employer] [facility] [address] [address] [facility] [phone] INA SORIANO
--- OUTSIDE RECORDS SUMMARY | 2021-03-12 20:00 | CCD ---
Author Author [facility] Organization [facility] Address Unknown Phone Unavailable Care Team Providers Care Client Service Representative Name Role Phone Landen Dyson Unavailable PROBLEMS Type Condition ICD9-CM Code [id number] Code Onset Dates Condition S tatus W/U Status Risk SNOMED Code Notes Problem DJD (degenerative joint disease), 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 Active confirmed 523469478 Problem Hyperlipidemia E78.5 Active confirmed 38046 004 Problem Vitamin B12 deficiency E53.8 Active confirmed 789052896 Problem Vitamin D deficiency E55.9 Active confirmed 66594795 Problem GERD (gastroesophageal reflux disease) K21.9 A ctive confirmed 970023576 Problem Primary osteoarthritis of both knees M17.0 Act jasen confirmed 628583559 Problem CKD (chronic kidney disease) stage 3, GFR 30-59 ml/min N18.3 Active confirmed 315454754 Problem 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.511 Active confirmed 974460587644247 Problem Non-seasonal allergic rhinitis, unspecified trigger J30.89 Active confirmed 04288662 Problem Essential (primary) hypertension I10 Active conf irmed 75214202 Problem Chronic diastolic (congestive) heart failure I50.3 2 Active confirmed 893794608 Problem 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.8 Active confirmed 123163268 Problem Gout M10.9 Active confirmed 62233007 Problem Mild dementia F03.90 Active confirmed 491573 273587320 Problem Ataxia R27.0 Active confirmed 41916864 Problem 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 Active confirmed 230 631773 Problem Seizure disorder G40.909 Active confirmed 12 2238414 Problem PVD (peripheral vascular disease) I73.9 Active confirmed 843307688 Problem Iron deficiency anemia, unspecified iron deficiency an emia type D50.9 Active confirmed 09752923 Problem 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 Active confirmed 635845588 Problem Dry eyes, bilateral H04.123 Active confirmed 608653740 Problem 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 Active confirmed 60068730 Problem Obstructive sleep apnea G47.33 Active confirmed 90898533 Problem 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 Active confirmed 412379041 Problem Sensorineural hearing loss (SNHL) of both ears H90 .3 Active confirmed 775553976 Problem Overweight E66.3 Active confirmed 428095626 Problem Prostate cancer C61 Active confirmed 3990 44609 Problem Skin ulcer of left heel, limited to breakdown of skin L97.421 Active confirmed 440380020 Problem 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 Active confirmed 570547375 Problem Xerosis cutis L85.3 Active confirmed 219171 00 Problem MIHIR (obstructive sleep apnea) G47.33 Active confirm ed 59418781 ALLERGIES Allergen (clinical drug ingredient) Drug/Non Drug Allergy do cumented on EMR Reaction Allergy Type Onset Date Status evironmental watery eyes,sneezing Non Drug Allergy Active ENCOUNTERS from 1933 to 2021-02-14 Encounter Location Date Provider Diagnosis [address] [phone] [place] [address] Jan, Landen Dyson IMMUNIZATIONS Vaccine Route Administration [...] School Language: Question Answer Notes Languages spoken: [place] Denominational: Question Answer Notes Denominational No sikh beliefs that would impact health care. Sexual [...] DX: R27.0 for 30 Days fax to [facility] [phone] Oct, Active OneTouch Verio - USE TWO TIMES A DAY for 50 Active Knee Compression Sleeve/L/XL 1 as directed R60.9 Daily for 99 mo [facility] Apr, Active metFORMIN HCl ER 500 MG [...] knee Daily for 30 Days fax to [facility] [phone] Jun, Active Lancets - marty contour ez subcutaneously AC BID DX: E11.8 for 90 Active CPAP mask as directed decrease pressure by 2 dx: G 47.33 for 999 days [facility] fax # August, Active CPAP Machine as directed 4-20 mmHg dx: G47.33 August, Active Torsemide 20 MG 1 1/2 ablet Orally every morning for 90 day(s) Active Pen [place] 31G X 5 MM as directed subcutaneously once daily for 30 Days Apr, Active PROCEDURES No Information RESULTS No Results REASON FOR VISIT needles MEDICAL (GENERAL) HISTORY Type Description Date Medical [...] 1 christa dysfx, AV sclero sis, trace [place], no evidence of bubble passage form R [...] Orally every morning for 90 day(s) Pen [place] 31G X 5 MM as directed subcutaneously [...] Name:Landen Dyson, 2021-05-04 0 1:00:00 PM, [address] [facility], , [place], [address], Insurance Providers Payer Name Payer Address Payer Phone Insured Name Patient Relati onship to Insured Coverage Start Date Coverage End Date [facility] [address] [address] [facility] [phone] INA SORIANO
--- OUTSIDE RECORDS SUMMARY | 2021-03-12 20:00 | CCD ---
Author Author [facility] Organization [facility] Address Unknown Phone Unavailable Care Team Providers [facility] Display Builder Name Role Phone Landen Dyson Unavailable PROBLEMS Type Condition ICD9-CM Code MPR14-JI Code Onset Dates Condition S tatus W/U Status Risk SNOMED Code Notes Problem DJD (degenerative joint disease), 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 Active confirmed 799635894 Problem Hyperlipidemia E78.5 Active confirmed 48252 004 Problem Vitamin B12 deficiency E53.8 Active confirmed 167312830 Problem Vitamin D deficiency E55.9 Active confirmed 61589370 Problem GERD (gastroesophageal reflux disease) K21.9 A ctive confirmed 854102459 Problem Primary osteoarthritis of both knees M17.0 Act jasen confirmed 526976314 Problem CKD (chronic kidney disease) stage 3, GFR 30-59 ml/min N18.3 Active confirmed 263826677 Problem 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.511 Active confirmed 656530585553426 Problem Non-seasonal allergic rhinitis, unspecified trigger J30.89 Active confirmed 74544217 Problem Essential (primary) hypertension I10 Active conf irmed 79988586 Problem Chronic diastolic (congestive) heart failure I50.3 2 Active confirmed 188335730 Problem 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.8 Active confirmed 939332434 Problem Gout M10.9 Active confirmed 64476019 Problem Mild dementia F03.90 Active confirmed 994180 859690997 Problem Ataxia R27.0 Active confirmed 22501202 Problem 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 Active confirmed 230 858405 Problem Seizure disorder G40.909 Active confirmed 12 1526387 Problem PVD (peripheral vascular disease) I73.9 Active confirmed 026433328 Problem Iron deficiency anemia, unspecified iron deficiency an emia type D50.9 Active confirmed 65485585 Problem 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 Active confirmed 397259278 Problem Dry eyes, bilateral H04.123 Active confirmed 132303175 Problem 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 Active confirmed 13420369 Problem Obstructive sleep apnea G47.33 Active confirmed 94314052 Problem 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 Active confirmed 737547951 Problem Sensorineural hearing loss (SNHL) of both ears H90 .3 Active confirmed 392901287 Problem Overweight E66.3 Active confirmed 357104047 Problem Prostate cancer C61 Active confirmed 3990 32496 Problem Skin ulcer of left heel, limited to breakdown of skin L97.421 Active confirmed 163084585 Problem 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 Active confirmed 555565244 Problem Xerosis cutis L85.3 Active confirmed 213032 00 Problem MIHIR (obstructive sleep apnea) G47.33 Active confirm ed 95471396 ALLERGIES Allergen (clinical drug ingredient) Drug/Non Drug Allergy do cumented on EMR Reaction Allergy Type Onset Date Status evironmental watery eyes,sneezing Non Drug Allergy Active ENCOUNTERS from 1933 to 2021-01-20 Encounter Location Date Provider Diagnosis [address] [phone] [place] [address] Dec, Landen Dyson IMMUNIZATIONS Vaccine Route Administration [...] School Language: Question Answer Notes Languages spoken: Uruguayan Roman Catholic: Question Answer Notes Roman Catholic No gnosticism beliefs that would impact health [...] R27.0 for 30 Days fax to [facility] [phone] Oct, Active OneTouch Verio - USE TWO TIMES A DAY for 50 Active Knee Compression Sleeve/L/XL 1 as directed R60.9 Daily for 99 mo [facility] Apr, Active Glimepiride 4 MG 1 [...] knee Daily for [facility] [phone] Jun, Active Lancets - marty contour ez subcutaneously AC BID DX: E11.8 for 90 Active CPAP mask as directed decrease pressure by 2 dx: G 47.33 for 999 days [facility] fax # August, Active CPAP Machine as directed 4-20 mmHg dx: G47.33 August, Active Torsemide 20 MG 1 1/2 ablet Orally every morning for 90 day(s) Active Pen [place] 31G X 5 MM as directed subcutaneously once daily for 30 Days Apr, Active PROCEDURES No Information RESULTS No Results REASON FOR VISIT wrong pen needles MEDICAL (GENERAL) HISTORY Type Description Date [...] 1 christa dysfx, AV sclero sis, trace [place], no evidence of bubble passage form R [...] Orally every morning for 90 day(s) Pen [place] 31G X 5 MM as directed subcutaneously [...] Name:Landen Dyson, 2021-05-04 0 1:00:00 PM, [address] [facility], , [place], [address], Insurance Providers Payer Name Payer Address Payer Phone Insured Name Patient Relati onship to Insured Coverage Start Date Coverage End Date [facility] [address] [address] [facility] [phone] INA SORIANO
--- OUTSIDE RECORDS SUMMARY | 2021-03-12 20:00 | CCD | Continuity of Care Document ---
Author Author [facility] Organization Unknown Address [address] [place] [address] Phone [phone] Care Team Providers Care Child Care Director Name Role Phone AUTM Unavailable Landen Dyson M.D. AUTM [phone] AUTM Unavailable Problems Description No Information Available [...] lb BMI (Body Mass Index) 37.7 kg/m2 [place] Body Weight 160 lb Weight 115.668 kg BSA (Body Surface Area) 2.29 m2 10/20/2020 2:30pm BP Systolic 130 mmHg BP Diastolic 70 mmHg Heart Rate 114 /min O2 % BldC Oximetry 94 % Height 69 inches 5'9" Weight 252.00 lb BMI (Body Mass Index) 37.2 kg/m2 [place] Body Weight 160 lb Weight 114.307 kg BSA (Body Surface Area) 2.28 m2 Results Description No Information Available Procedures Date Code Description Status 10/20/2020 27963 Office/Outpatient New Low MDM 30 -44 Minutes Completed Medical Devices Description No Information Available Encounters Type Date Location Provider Dx Diagnosis Office Visit 10/20/2020 2:45p [facility] Pulmonary/Thoracic Kaitlyn Wintre N.PRosa G47.33 Obstructive sleep apnea (adult) (pediatr ic) Assessments Date Code Description Provider 02/01/2021 G47.33 Obstructive sleep apnea (adult) (pediatric) Cristiana Winter N.PRosa 10/20/2020 G47.33 Obstructive sleep apnea (adult) (pediatric) Cristiana Winter, N.P. Plan of Treatment Future Appointment(s):* 02/05/2022 2:15 pm - Cristiana Winter N.PRosa at [facility] Pulmonary/Thoracic 02/01/2021 - Cristiana Winter, N.P.* G47.33 [...] supply order has been sent to the [facility]. * Follow up:* 1. Follow up in one year to reassess CPAP compliance or sooner should problems develop. Functional Status Description No Information Available Mental Status Mental Condition Comment Date Status Cognitive ability not impaired A ctive Referrals Refer to Reason for Referral Status Appt Date Grant Solorzano R.P.A.-C. ABNORMAL HST Closed 09/28 [facility]-Pulmonary [address] [place] [address] [phone]
--- OUTSIDE RECORDS SUMMARY | 2021-03-12 20:00 | CCD | Continuity of Care Document ---
Author Author [facility] Organization Unknown Address [address] [place] [address] Phone [phone] Care Team Providers Care Doctor Of Nurse Anesthesia Name Role Phone AUTM Unavailable Landen Dyson M.D. AUTM [phone] AUTM Unavailable Problems Description No Information Available [...] lb BMI (Body Mass Index) 37.7 kg/m2 [place] Body Weight 160 lb Weight 115.668 kg BSA (Body Surface Area) 2.29 m2 10/20/2020 2:30pm BP Systolic 130 mmHg BP Diastolic 70 mmHg Heart Rate 114 /min O2 % BldC Oximetry 94 % Height 69 inches 5'9" Weight 252.00 lb BMI (Body Mass Index) 37.2 kg/m2 [place] Body Weight 160 lb Weight 114.307 kg BSA (Body Surface Area) 2.28 m2 Results Description No Information Available Procedures Date Code Description Status 10/20/2020 90769 Office/Outpatient New Low MDM 30 -44 Minutes Completed Medical Devices Description No Information Available Encounters Type Date Location Provider Dx Diagnosis Office Visit 10/20/2020 2:45p [facility] Pulmonary/Thoracic Kaitlyn Winter N.PRosa G47.33 Obstructive sleep apnea (adult) (pediatr ic) Assessments Date Code Description Provider 02/01/2021 G47.33 Obstructive sleep apnea (adult) (pediatric) Cristiana Winter N.PRosa 10/20/2020 G47.33 Obstructive sleep apnea (adult) (pediatric) Cristiana Winter, N.P. Plan of Treatment Future Appointment(s):* 02/05/2022 2:15 pm - Cristiana Winter N.PRosa at [facility] Pulmonary/Thoracic 02/01/2021 - Cristiana Winter, N.P.* [...] supply order has been sent to the [facility]. * Follow up:* 1. Follow up in one year to reassess CPAP compliance or sooner should problems develop. Functional Status Description No Information Available Mental Status Mental Condition Comment Date Status Cognitive ability not impaired A ctive Referrals Refer to Reason for Referral Status Appt Date Grant Solorzano R.P.A.-C. ABNORMAL HST Closed 09/28 [facility]-Pulmonary [address] [place] [address] [phone]
--- OUTSIDE RECORDS SUMMARY | 2021-03-12 20:01 | CCD ---
Author Author [facility] Organization [facility] Address Unknown Phone Unavailable Care Team Providers Care Engineering Programmer Name Role Phone Landen Dyson Unavailable PROBLEMS Type Condition ICD9-CM Code [id number] Code Onset Dates Condition S tatus W/U Status Risk SNOMED Code Notes Problem DJD (degenerative joint disease), 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 Active confirmed 819757176 Problem Hyperlipidemia E78.5 Active confirmed 61593 004 Problem Vitamin B12 deficiency E53.8 Active confirmed 200527528 Problem Vitamin D deficiency E55.9 Active confirmed 78123668 Problem GERD (gastroesophageal reflux disease) K21.9 A ctive confirmed 412982960 Problem Primary osteoarthritis of both knees M17.0 Act jasen confirmed 674335390 Problem CKD (chronic kidney disease) stage 3, GFR 30-59 ml/min N18.3 Active confirmed 636003135 Problem 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 Active confirmed 764306808058781 Problem Non-seasonal allergic rhinitis, unspecified trigger J30.89 Active confirmed 30086047 Problem Essential (primary) hypertension I10 Active conf irmed 84824629 Problem Chronic diastolic (congestive) heart failure I50.3 2 Active confirmed 463818640 Problem 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.8 Active confirmed 817106017 Problem Gout M10.9 Active confirmed 96872925 Problem Mild dementia F03.90 Active confirmed 225157 278769294 Problem Ataxia R27.0 Active confirmed 44881820 Problem 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 Active confirmed 230 610239 Problem Seizure disorder G40.909 Active confirmed 12 1965306 Problem PVD (peripheral vascular disease) I73.9 Active confirmed 341107519 Problem Iron deficiency anemia, unspecified iron deficiency an emia type D50.9 Active confirmed 94109584 Problem 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 Active confirmed 821454853 Problem Dry eyes, bilateral H04.123 Active confirmed 261666931 Problem 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 Active confirmed 60686324 Problem Obstructive sleep apnea G47.33 Active confirmed 21495204 Problem 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 Active confirmed 222586564 Problem Sensorineural hearing loss (SNHL) of both ears H90 .3 Active confirmed 084578444 Problem Overweight E66.3 Active confirmed 966460641 Problem Prostate cancer C61 Active confirmed 3990 36292 Problem Skin ulcer of left heel, limited to breakdown of skin L97.421 Active confirmed 131673372 Problem 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 Active confirmed 772260921 Problem Xerosis cutis L85.3 Active confirmed 771713 00 Problem MIHIR (obstructive sleep apnea) G47.33 Active confirm ed 47815518 ALLERGIES Allergen (clinical drug ingredient) Drug/Non Drug Allergy do cumented on EMR Reaction Allergy Type Onset Date Status evironmental watery eyes,sneezing Non Drug Allergy Active ENCOUNTERS from 1933 to 2021-01-03 Encounter Location Date Provider Diagnosis [address] [phone] [place] [address] 07 Dec, 2020 Landen Dyson Primary osteoarthritis of piedad th knees M17.0 IMMUNIZATIONS Vaccine Route Administration Date Status Influenza [...] School Language: Question Answer Notes Languages spoken: German Scientology: Question Answer Notes Scientology No scientology beliefs that would impact health care. Sexual [...] Notes Start Da te End Date Status Tresiba FlexTouch 200 UNIT/ML 10 units Subcutaneous at bedtime f or 90 day(s) Active Voltaren 1 % clarification 5 gm to r knee , r index finger Transdermal four times daily as needed for 30 Days Active Pen [place] 31G X 6 MM as directed subcutaneously once daily for 30 Days Apr, Active Omeprazole 40 MG 1 capsule Orally Once a day for 90 day(s) Active Potassium Chloride ER 10 MEQ TAKE ONE TABLET BY MOUTH TWO TIMES A DAY for 90 Active Apixaban 5 MG 1 tab Orally bid Activ e metFORMIN HCl ER 500 MG 1 tab Orally AC BID for 90 day(s) Active Fluticasone Propionate 50 MCG/ACT 2 sprays in each nos tril Nasally every morning for 90 day(s) Active Blood Glucose Test - marty countour ez subcutaneously A C BID for 9 0 day(s) Active Rosuvastatin Calcium 20 MG TAKE ONE TABLET BY MOUTH EVERY DAY for 90 Active Allopurinol 300 MG TAKE ONE TABLET BY MOUTH DAILY for 90 Active Rosuvastatin Calcium 20 MG 1 tablet Orally Daily for 90 day(s) Active Glimepiride 4 MG 1 tab Orally AC BID for 90 day(s) Active Glimepiride 4 MG TAKE ONE TABLET BY MOUTH TWICE A DAY BEFORE MEALS fo r 90 Active Allopurinol 300 MG 1 tablet Orally Once a day for 90 day(s) Active Knee Compression Sleeve/L/XL 1 as directed R60.9 Daily for 99 mo [facility] Apr, Active Systane Ultra 0.4-0.3 % 1 drop each eye Ophthalmic QID Active Optifoam Gentle Foam Dressings as directed 4 x4; topic ally 2-3x/week x 4 weeks for 30 days Jun, Active Ferrous Sulfate 325 (65 Fe) MG 1 tablet Orally every other day Active Potassium Chloride 10 MEQ 1 tablet Orally Twice a day for 90 day(s) Active Walker - 4 wheeled walker w/ seat Daily DX: R27.0 for 30 Days fax to [facility] [phone] Oct, Active Aspirin 81 MG 1 tablet Orally Once a day Active Torsemide 20 MG 1 1/2 ablet Orally every morning for 90 day(s) Active Cholecalciferol 5000 UNIT 1 capsule Orally Once a day for 90 day(s) Active Ammonium Lactate 12 % 1 application Externally Twi ce a day to bothb feet for 30 Days Active COMPRESSION STOCKINGS 15-20 mmHg DIRECTED above the knee Daily for 30 Days fax to [facility] [phone] Jun, Active Cyanocobalamin 500 MCG 1 tablet Orally Once a day for 90 day(s) Active Glucometer _ One Touch Verio DX: E11.9 Daily use for 365 days Feb, Active Apixaban 5 MG 1 tab Orally bid for 90 day(s) Active Lancets - marty contour ez subcutaneously AC BID DX: E11.8 for 90 Active OneTouch Verio - USE TWO TIMES A DAY for 50 Active CPAP Machine as directed 4-20 mmHg dx: G47.33 August, Active CPAP mask as directed dx: G47.33 August, Active PROCEDURES No Information RESULTS No Results REASON FOR VISIT Dicfloanac Sodium 1 % Gel MEDICAL (GENERAL) HISTORY Type Description Date Medical [...] Treatment Notes Treatm ent Clinical Notes Dec, Primary osteoarthritis of both knees (ICD-10 - M 17.0) PLAN OF TREATMENT Medication Medication Name Sig Start Date Stop Date Systane Ultra 0.4-0.3 % 1 drop each eye Ophthalmic QID Apixaban 5 MG 1 tab Orally bid for 90 day(s) Cyanocobalamin 500 MCG 1 tablet Orally Once a day for 90 day(s) Aspirin 81 MG 1 tablet Orally Once a day Potassium Chloride 10 MEQ 1 tablet Orally Twice a day for 90 day (s) Torsemide 20 MG 1 1/2 ablet Orally every morning for 90 day(s) Ammonium Lactate 12 % 1 application Externally Twi ce a day to bothb feet for 30 Days Tresiba FlexTouch 200 UNIT/ML 10 units Subcutaneous at bedtime f or 90 day(s) Omeprazole 40 MG 1 capsule Orally Once a day for 90 day(s) Glimepiride 4 MG 1 tab Orally AC BID for 90 day(s) metFORMIN HCl ER 500 MG 1 tab Orally AC BID for 90 day(s) Cholecalciferol 5000 UNIT 1 capsule Orally Once a day for 90 day (s) Fluticasone Propionate 50 MCG/ACT 2 sprays in each nos tril Nasally every morning for 90 day(s) Voltaren 1 % clarification 5 gm to r knee , r index finger Transdermal four times daily as needed for 30 Days Allopurinol 300 MG 1 tablet Orally Once a day for 90 day(s) Rosuvastatin Calcium 20 MG 1 tablet Orally Daily for 90 day(s) Next Appt Details Provider Name:Landen Dyson, 2021-05-04 0 1:00:00 PM, [address] [facility], , [place], [address], Insurance Providers Payer Name Payer Address Payer Phone Insured Name Patient Relati onship to Insured Coverage Start Date Coverage End Date [facility] [address] [address] [facility] [phone] INA SORIANO
--- OUTSIDE RECORDS SUMMARY | 2021-03-12 20:01 | CCD ---
Author Author [facility] Organization [facility] Address Unknown Phone Unavailable Care Team Providers Care Behavior Support Specialist Name Role Phone Landen Dyson Unavailable PROBLEMS Type Condition ICD9-CM Code ANA02-CL Code Onset Dates Condition S tatus W/U Status Risk SNOMED Code Notes Problem DJD (degenerative joint disease), 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 Active confirmed 095571632 Problem Hyperlipidemia E78.5 Active confirmed 40064 004 Problem Vitamin B12 deficiency E53.8 Active confirmed 487413532 Problem Vitamin D deficiency E55.9 Active confirmed 06842264 Problem GERD (gastroesophageal reflux disease) K21.9 A ctive confirmed 723711027 Problem Primary osteoarthritis of both knees M17.0 Act jasen confirmed 568358357 Problem CKD (chronic kidney disease) stage 3, GFR 30-59 ml/min N18.3 Active confirmed 552346017 Problem 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.511 Active confirmed 662205053274418 Problem Non-seasonal allergic rhinitis, unspecified trigger J30.89 Active confirmed 35240665 Problem Essential (primary) hypertension I10 Active conf irmed 98742717 Problem Chronic diastolic (congestive) heart failure I50.3 2 Active confirmed 647998906 Problem 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.8 Active confirmed 308191864 Problem Gout M10.9 Active confirmed 47940683 Problem Mild dementia F03.90 Active confirmed 745743 066076094 Problem Ataxia R27.0 Active confirmed 33920466 Problem 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 Active confirmed 230 080098 Problem Seizure disorder G40.909 Active confirmed 12 9853478 Problem PVD (peripheral vascular disease) I73.9 Active confirmed 555025202 Problem Iron deficiency anemia, unspecified iron deficiency an emia type D50.9 Active confirmed 10477043 Problem 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 Active confirmed 264733959 Problem Dry eyes, bilateral H04.123 Active confirmed 814285919 Problem 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 Active confirmed 04099170 Problem Obstructive sleep apnea G47.33 Active confirmed 83276654 Problem 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 Active confirmed 036136242 Problem Sensorineural hearing loss (SNHL) of both ears H90 .3 Active confirmed 417985462 Problem Overweight E66.3 Active confirmed 095908860 Problem Prostate cancer C61 Active confirmed 3990 75070 Problem Skin ulcer of left heel, limited to breakdown of skin L97.421 Active confirmed 046511999 Problem 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 Active confirmed 483993662 Problem Xerosis cutis L85.3 Active confirmed 133151 00 Problem MIHIR (obstructive sleep apnea) G47.33 Active confirm ed 81022166 ALLERGIES Allergen (clinical drug ingredient) Drug/Non Drug Allergy do cumented on EMR Reaction Allergy Type Onset Date Status evironmental watery eyes,sneezing Non Drug Allergy Active ENCOUNTERS from 1933 to 2021-01-06 Encounter Location Date Provider Diagnosis [address] [phone] [place] [address] Dec, Landen Dyson Obstructive sleep apnea G47. 33 IMMUNIZATIONS Vaccine Route Administration Date Status Influenza [...] School Language: Question Answer Notes Languages spoken: Turkish Shinto: Question Answer Notes Shinto No gnosticism beliefs that would impact health [...] as needed for 30 Days Active Pen [place] 31G X 6 MM as directed subcutaneously [...] A DAY BEFORE MEALS r 90 Active Allopurinol 300 MG 1 tablet Orally Once a day for 90 day(s) Active Knee Compression Sleeve/L/XL 1 as directed R60.9 Daily for 99 mo [facility] Apr, Active Systane Ultra 0.4-0.3 % 1 [...] DX: R27.0 for 30 Days fax to [facility] [phone] Oct, Active Aspirin 81 MG 1 tablet [...] knee Daily for 30 Days fax to [facility] [phone] Jun, Active Cyanocobalamin 500 MCG 1 tablet [...] G47.33 August, Active CPAP mask as directed decrease pressure by 2 dx: G 47.33 for [facility] August, Active PROCEDURES No Information RESULTS No Results REASON FOR VISIT cpap decrease MEDICAL (GENERAL) HISTORY Type Description Date Medical [...] History bilateral knee osteoarthritis Medical History lumbar sondylosis-12/30/20 M RI L35 severe spinal stenosis compression TS and B L4/5 NR; Medical History erectile dysfunction Medical History obstructive sleep apnea-patient refuses treatment Medical History partial complex seizure diso rder-recurrence p 10/2016 CVA-L temporal/parietal slowing, but no epileptiform activity Medical History obesity Medical History grade 1 christa dysfx, AV sclero sis, trace [place], no evidence of bubble passage form R [...] Treatment Notes Treatm ent Clinical Notes Dec, Obstructive sleep apnea (ICD-10 - G47.33) PLAN OF TREATMENT Medication Medication Name Sig Start Date Stop Date Apixaban 5 MG 1 tab Orally bid for 90 day(s) CPAP mask as directed decrease pressure by 2 dx: G 47.33 for 999 days August, Aspirin 81 MG 1 tablet Orally Once a day Systane Ultra 0.4-0.3 % 1 drop each eye Ophthalmic QID Torsemide 20 MG 1 1/2 ablet Orally every morning for 90 day(s) Ammonium Lactate 12 % 1 application Externally Twi ce a day to bothb feet for 30 Days Glimepiride 4 MG 1 tab Orally AC BID for 90 day(s) Allopurinol 300 MG 1 tablet Orally Once a day for 90 day(s) Omeprazole 40 MG 1 capsule Orally Once a day for 90 day(s) Cyanocobalamin 500 MCG 1 tablet Orally Once a day for 90 day(s) metFORMIN HCl ER 500 MG 1 tab Orally AC BID for 90 day(s) Tresiba FlexTouch 200 UNIT/ML 10 units Subcutaneous at bedtime f or 90 day(s) Potassium Chloride 10 MEQ 1 [...] Name:Landen Dyson, 2021-05-04 0 1:00:00 PM, [address] [facility], , [place], [address], Insurance Providers Payer Name Payer Address Payer Phone Insured Name Patient Relati onship to Insured Coverage Start Date Coverage End Date [facility] [employer] [address] [address] [facility] [phone] IAN SORIANO
--- OUTSIDE RECORDS SUMMARY | 2021-03-12 20:01 | CCD ---
Author Author [facility] Organization [facility] Address Unknown Phone Unavailable Care Team Providers Care Supervisor Histology Name Role Phone Landen Dyson Unavailable PROBLEMS Type Condition ICD9-CM Code TWR23-FR Code Onset Dates Condition S tatus W/U Status Risk SNOMED Code Notes Problem DJD (degenerative joint disease), 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 Active confirmed 015643102 Problem Hyperlipidemia E78.5 Active confirmed 17875 004 Problem Vitamin B12 deficiency E53.8 Active confirmed 730114108 Problem Vitamin D deficiency E55.9 Active confirmed 61236550 Problem GERD (gastroesophageal reflux disease) K21.9 A ctive confirmed 525460409 Problem Primary osteoarthritis of both knees M17.0 Act jasen confirmed 016880173 Problem CKD (chronic kidney disease) stage 3, GFR 30-59 ml/min N18.3 Active confirmed 701392414 Problem 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.511 Active confirmed 312001457975961 Problem Non-seasonal allergic rhinitis, unspecified trigger J30.89 Active confirmed 85155033 Problem Essential (primary) hypertension I10 Active conf irmed 16537597 Problem Chronic diastolic (congestive) heart failure I50.3 2 Active confirmed 689420677 Problem 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.8 Active confirmed 696103912 Problem Gout M10.9 Active confirmed 81097425 Problem Mild dementia F03.90 Active confirmed 386375 348336104 Problem Ataxia R27.0 Active confirmed 63393222 Problem 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 Active confirmed 230 640263 Problem Seizure disorder G40.909 Active confirmed 12 7791345 Problem PVD (peripheral vascular disease) I73.9 Active confirmed 707845600 Problem Iron deficiency anemia, unspecified iron deficiency an emia type D50.9 Active confirmed 70892276 Problem 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 Active confirmed 326888252 Problem Dry eyes, bilateral H04.123 Active confirmed 197595734 Problem 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 Active confirmed 82713739 Problem Obstructive sleep apnea G47.33 Active confirmed 67947905 Problem 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 Active confirmed 644515143 Problem Sensorineural hearing loss (SNHL) of both ears H90 .3 Active confirmed 552139379 Problem Overweight E66.3 Active confirmed 396365874 Problem Prostate cancer C61 Active confirmed 3990 71647 Problem Skin ulcer of left heel, limited to breakdown of skin L97.421 Active confirmed 360945318 Problem 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 Active confirmed 265157349 Problem Xerosis cutis L85.3 Active confirmed 904891 00 Problem MIHIR (obstructive sleep apnea) G47.33 Active confirm ed 67535252 ALLERGIES Allergen (clinical drug ingredient) Drug/Non Drug Allergy do cumented on EMR Reaction Allergy Type Onset Date Status evironmental watery eyes,sneezing Non Drug Allergy Active ENCOUNTERS from 1935 to 2020-12-28 Encounter Location Date Provider Diagnosis [address] [phone] [place] [address] Nov, Landen Dyson Diabetes mellitus type 2 [...] School Language: Question Answer Notes Languages spoken: Belarusian Mosque: Question Answer Notes Mosque No anabaptist beliefs that would impact health care. Sexual [...] FOR REFERRAL No Information VITAL SIGNS Weight 253.6 lbs Nov, Weight-kg [...] at bedtime f or 90 day(s) Active Potassium Chloride ER 10 MEQ TAKE ONE TABLET BY MOUTH TWO TIMES A DAY for 90 Active Pen [place] 31G X 6 MM as directed subcutaneously once daily for 30 Days Apr, Active Omeprazole 40 MG 1 capsule Orally Once a day for 90 day(s) Active Cholecalciferol 5000 UNIT 1 capsule Orally Once a day for 90 day(s) Active Apixaban 5 MG 1 tab Orally bid Activ e Voltaren 1 % clarification 5 gm to r knee , r index finger Transdermal four times daily as needed Active Fluticasone Propionate 50 MCG/ACT 2 sprays [...] 1 tablet Orally every other day Active Torsemide 20 MG 1 1/2 ablet Orally every morning for 90 day(s) Active Walker - 4 wheeled walker w/ seat Daily DX: R27.0 for 30 Days fax to Sun [phone] Oct, Active Aspirin 81 MG 1 tablet Orally Once a day Active Glimepiride 4 MG 1 tab Orally AC BID for 90 day(s) Active Potassium Chloride 10 MEQ 1 tablet Orally Twice a day for 90 day(s) Active Ammonium Lactate 12 % 1 application Externally Twi ce a day to bothb feet for 30 Days Active COMPRESSION STOCKINGS 15-20 mmHg DIRECTED above the knee Daily for 30 Days fax to sun [phone] Jun, Active Cyanocobalamin 500 MCG 1 tablet [...] 1 christa dysfx, AV sclero sis, trace [place], no evidence of bubble passage form R [...] down 19-20 on deglun U-200 10 QHS (-), glim 4 BID, met XR 500 BID [...] 09/27/20 p dw patient/daughter; now consent to in-[facility] 09/02/20 HST: BRITTANIE 63 c SaO2 to [...] - M47.816) Contingency: LESI 05/30/20 patient left [facility] office s being seen 04/27/20 MRI L35 severe spinal stenosis compression TS and B L4/5 NR; therefore, referred to [facility] for LESI trial 10/2017 weaned self off [...] patient meets critieria for biological recurrence by Hayes criteria (with a eula in 09/2001), patient [...] grade 1 christa dysfx, AV sclerosis, trace [place], no evidence of bubble passage form R [...] L mid foot p blunt trauma-hospitalized at [facility] 6.6, co lchicine 0.6 BID started c [...] MG 1 tablet Orally Once a day Torsemide 20 MG 1 1/2 ablet Orally every morning for 90 day(s) Glimepiride [...] finger Transdermal four times daily as needed Potassium Chloride 10 MEQ 1 tablet Orally Twice a day for 90 day (s) Fluticasone Propionate 50 MCG/ACT 2 sprays in each nos tril Nasally every morning for 90 day(s) Cholecalciferol 5000 UNIT 1 capsule Orally Once a day for 90 day (s) Allopurinol 300 MG 1 tablet Orally Once a day for 90 day(s) Rosuvastatin Calcium 20 MG 1 tablet Orally Daily for 90 day(s) Treatment Notes Assessment Notes Clinical Notes Essential [...] 81)grade 1 christa dysfx, AV sclerosis, trace [place], no evidence of bubble passage form R [...] L mid foot p blunt trauma-hospitalized at [facility] 6.6, colchicine 0.6 BID started c improvement (but also rxed as cellulitis as per c ceftaroline/doxy104/2015 first flare L mid foot-resolved on own p ~4W Seizure disorder No seizure activity since 10/2016Strongly encouraged NOT use to any remaining tramadol and NO driving!04/10/17 Dr. Ramirez stopped leve-did not feel patient had ayenzvy5504/08/2017 leve 15 on 500 BID10/2015 leve 500 [...] 20 for unknown reason; therefore, restarted11/2017 69/51/117, 6509103/2017 81/57/80, 74, on rosuva 2.9, 1.012/2017 2.1, 1. 2.07/2012 1.6October 2009 TSH 0.8Lipitor caused myalgia, Zocor 20 qd ineffective Prostate cancer Patient refuses any further workup/rxfollows with Dr. Barbosa 07/31/16 who recommended 3M which patient NS and REFUSES fu and repeat CT AP/WBBS06/17/20 19810 18520 2 15. 13.512/2016 11. PSA 122/2016 CT AP s/c NAD/WBBS c new uptake at T8 and T10-06/2016 MRI thoracic spine c bulges s cord compression/mets/fracture; therefore, Dr. Henriquez referred patient to Ortho04/2016 10.1; therefore, referred back to 8. 8.1-drawn by Yulia, who because of decline deferred HT for now c recheck of PSA 9.71/ Yulia referred to Dr. Gutierrez for hormonal therapy which patient qqgfimbq29/2014 8.1, therefore referred back to Dr. Bender02/11/14 given there no evidence of distant metastases with a biological recurrence, we d/w salvage rx and pateint is favoring XRT with Dr. Bender. We referred back to him.12/2013 given patient meets critieria for biological recurrence by Hayes criteria (with a eula in 09/2001), patient changed his mind and consented to repeat WBSC, CT A/P s/c in 12/2013 which was negative x for "rare nonspecific pelvic LN".11/2013 6.612 5. 5. 5. PSA 4. 1.8 Overweight Encouraged weight lo ss Diabetes mellitus type 2 with complications din 17, down 19-20on deglun U-200 10 QHS (), glim 4 BID, met XR 500 BID uisng FSL 7.1 c excellent 14D FSL2 m158, TAIBR 7 >250/25/68/0; ergo CCR05/12/20 stopped lester 50 and + deglun U- 200 10 QHS03/14/20 met 500 QD to 500 BID given AC BG 200-220 c BG cb in 1402/03/20 recommended basal insulin, but px preferred to [...] qAM, K 10 BID07/14/20 19/0.8, 4.8, 1.8, 33912 20/1.1, 4, BNP 392 on torse 20 [...] d w patient/daughter; [facility] BRITTANIE 63 c SaO2 to 72% MGUS (monoclonal gammopathy of unknown significance) 07/14/20 sIFE c IgG kappa12/23/20 14.5, 98, 7.5, 238K, harshil 14.2, 98, 7K, 241 15.1, 98, r35/1.3 s supplement12/23/20 SPEP M spike 0.58 sKL 50/16/3 PVD (peripheral vascular disease) Patien t defers [...] joint disease), lumbar Contingency: LES05/30/20 patient left [facility] office s being seen04/27/20 MRI L35 severe spinal stenosis compression TS and B L4/5 NR; therefore, referred to [facility] for LESI trial10/2017 weaned self off HC12/08/16 [...] 52 09/2018 18, 8.6, 136; therefore, encouraged yilcijbvlb50/2018 15, 8.7, PTH 139; therefore, +D3 5K Vitamin B12 deficiency hemoglobin as per CKD11/2017 1024 on 9608503/2017 1415 on 1000; therefore, decreased to 50007/2015 62843/2013 26813/2011 B12 305 therfore 500 increased to 1000 qd03/2017 8949 RBC folate 49 23%, 9 s supplement Chronic deep vein [...] Test Name Order Date CBC with Differential [id number] FERRITIN [id number] SERUM PROTEIN ELECTROPHORESIS (SPEP) 95407250 HEMOGLOBIN A1c 32508183 PSA SCREENING [id number] NT-PRO BNP [id number] MAGNESIUM LEVEL [id number] Comprehensive Metabolic Profile (CMP) [id number] Next Appt Details 3-4M, BW 1W prior Reason: Provider Name:Landen Dyson, 2021-05-04 0 1:00:00 PM, [address] [facility], , [place], [address], Insurance Providers Payer Name Payer Address Payer Phone Insured Name Patient Relati onship to Insured Coverage Start Date Coverage End Date [facility] [employer] [address] [address] [facility] [phone] [phone] INA SORIANO V self
--- OUTSIDE RECORDS SUMMARY | 2021-03-12 20:01 | CCD ---
Author Author [facility] Organization [facility] Address Unknown Phone Unavailable Care Team Providers Care Prop Making Supervisor Name Role Phone Landen Dyson Unavailable PROBLEMS Type Condition ICD9-CM Code [id number] Code Onset Dates Condition S tatus W/U Status Risk SNOMED Code Notes Problem Essential (primary) hypertension I10 Active conf irmed [id number] Problem Vitamin B12 deficiency E53.8 Active confirmed 937399581 Problem DJD (degenerative joint disease), 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 Active confirmed 690988823 Problem GERD (gastroesophageal reflux disease) K21.9 A ctive confirmed 885629457 Problem Hyperlipidemia E78.5 Active confirmed 83281 004 Problem CKD (chronic kidney disease) stage 3, GFR 30-59 ml/min N18.3 Active confirmed 091455455 Problem Vitamin D deficiency E55.9 Active confirmed 68835841 Problem Non-seasonal allergic rhinitis, unspecified trigger J30.89 Active confirmed 58058150 Problem PVD (peripheral vascular disease) I73.9 Active confirmed 969631350 Problem Chronic diastolic (congestive) heart failure I50.3 2 Active confirmed 209973418 Problem Gout M10.9 Active confirmed 48428224 Problem Prostate cancer C61 Active confirmed 3990 64721 Problem Ataxia R27.0 Active confirmed 99318389 Problem 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.8 Active confirmed 165237216 Problem Seizure disorder G40.909 Active confirmed 12 2185283 Problem Mild dementia F03.90 Active confirmed 588707 757970656 Problem Iron deficiency anemia, unspecified iron deficiency an emia type D50.9 Active confirmed 51316338 Problem 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 Active confirmed 230 369817 Problem 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.511 Active confirmed 424945875100639 Problem 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 Active confirmed 991275709 Problem 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 Active confirmed 63018047 Problem MIHIR (obstructive sleep apnea) G47.33 Active confirm ed 96833023 Problem Overweight E66.3 Active confirmed 939990237 Problem Obstructive sleep apnea G47.33 Active confirmed 60058057 Problem Primary osteoarthritis of both knees M17.0 Act jasen confirmed 689879307 Problem 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 Active confirmed 704026613 Problem Skin ulcer of left heel, limited to breakdown of skin L97.421 Active confirmed 852010003 Problem Dry eyes, bilateral H04.123 Active confirmed 727574480 Problem 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 Active confirmed 747735705 Problem Xerosis cutis L85.3 Active confirmed 664573 00 ALLERGIES Allergen (clinical drug ingredient) Drug/Non Drug Allergy do cumented on EMR Reaction Allergy Type Onset Date Status evironmental watery eyes,sneezing Non Drug Allergy Active ENCOUNTERS from 1935 to 2020-12-20 Encounter Location Date Provider Diagnosis [address] [phone] [place] [address] Nov, Landen Dyson Diabetes mellitus type 2 wit h complications E11.8 IMMUNIZATIONS Vaccine Route Administration Date [...] School Language: Question Answer Notes Languages spoken: [place] Jew: Question Answer Notes Jew No mandaeism beliefs that would impact health care. Sexual [...] as directed R60.9 Daily for 99 mo [facility] Apr, Active Torsemide 20 MG 1 1/2 tab Orally every morning for 90 day(s) Active Fluticasone Propionate 50 MCG/ACT 2 sprays in each nos tril Nasally every morning for 90 day(s) Active Tresiba FlexTouch 200 UNIT/ML 10 units Subcutaneous at bedtime f or 90 day(s) Active Walker - 4 wheeled walker w/ seat Daily DX: R27.0 for 30 Days fax to Sun [phone] Oct, Active Blood Glucose Test - marty countour ez subcutaneously A C BID for 9 0 day(s) Active Rosuvastatin Calcium 20 MG TAKE ONE TABLET BY MOUTH EVERY DAY for 90 Active Ferrous Sulfate 325 (65 Fe) MG 1 tablet Orally every other day Active Torsemide 20 MG 1 1/2 ablet Orally every morning for 90 day(s) Active CPAP Machine as directed 4-20 mmHg dx: G47.33 August, Active CPAP mask as directed dx: G47.33 August, Active Eliquis 5 MG TAKE ONE TABLET BY MOUTH TWICE A DAY [STOP CLOPIDOGREL ] for 90 Active Cyanocobalamin 500 MCG 1 tablet Orally Once a day for 90 day(s) Active Systane Ultra 0.4-0.3 % 1 drop each eye Ophthalmic QID Active Potassium Chloride ER 10 MEQ TAKE ONE TABLET BY MOUTH TWO TIMES A DAY for 90 Active metFORMIN HCl ER 500 MG 1 tab Orally AC BID for 90 day(s) Active Lancets - marty contour ez subcutaneously AC BID DX: E11.8 for 90 Active Optifoam Gentle Foam Dressings as directed 4 x4; topic ally 2-3x/week x 4 weeks for 30 days Jun, Active Voltaren 1 % clarification 5 gm to r knee , r index finger Transdermal four times daily as needed Active Allopurinol 300 MG TAKE ONE TABLET BY MOUTH DAILY for 90 Active Glucometer _ One Touch Verio DX: E11.9 Daily use for 365 days Feb, Active Cholecalciferol 5000 UNIT 1 capsule Orally Once a day for 90 day(s) Active Ammonium Lactate 12 % 1 application Externally Twi ce a day to bothb feet for 30 Days Sep, Active Glimepiride 4 MG TAKE ONE TABLET BY MOUTH TWICE A DAY BEFORE MEALS fo r 90 Active COMPRESSION STOCKINGS 15-20 mmHg DIRECTED above the knee Daily for 30 Days fax to sun [phone] Jun, Active Aspirin 81 MG 1 tablet Orally Once a day Active Januvia 50 MG as directed Orally Daily for 90 Active OneTouch Verio - USE TWO TIMES A DAY for 50 Active Pen [place] 31G X 6 MM as directed subcutaneously once daily for 30 Days Apr, Active Potassium Chloride 10 MEQ 1 tablet Orally Twice a day for 90 days Active PROCEDURES No Information RESULTS No Results REASON FOR VISIT metfromin MEDICAL (GENERAL) HISTORY Type Description Date Medical [...] 1 christa dysfx, AV sclero sis, trace AR/MA, no evidence of bubble passage form R [...] Name Sig Start Date Stop Date Pen [place] 31G X 6 MM as directed subcutaneously once daily for 30 Days Apr, Potassium Chloride 10 MEQ 1 tablet Orally Twice a day for 90 day s Potassium Chloride ER 10 MEQ TAKE ONE TABLET BY MOUTH TWO TIMES A DAY for 90 Aspirin 81 MG 1 tablet Orally Once a day Glimepiride 4 MG TAKE ONE TABLET BY MOUTH TWICE A DAY BEFORE AKIRA LS for 90 Cholecalciferol 5000 UNIT 1 capsule Orally Once a day for 90 day (s) metFORMIN HCl ER 500 MG 1 tab Orally AC BID for 90 day(s) Eliquis 5 MG TAKE ONE TABLET BY MOUTH TWICE A DAY [STOP CLOPI DOGREL] for 90 Tresiba FlexTouch 200 UNIT/ML 10 units Subcutaneous at bedtime f or day(s) Systane Ultra 0.4-0.3 % 1 drop each eye Ophthalmic QID Ammonium Lactate 12 % 1 application Externally Twi ce a day to bothb feet for 30 Days Sep, Voltaren 1 % clarification 5 gm to r knee , r index finger Transdermal four times daily as needed Cyanocobalamin 500 MCG 1 tablet Orally Once a day for 90 day(s) Omeprazole 40 MG 1 capsule Orally Once a day for 90 day(s) Allopurinol 300 MG TAKE ONE TABLET BY MOUTH DAILY for 90 Rosuvastatin Calcium 20 MG TAKE ONE TABLET BY MOUTH EVERY DAY Torsemide 20 MG 1 1/2 ablet Orally every morning for 90 day(s) Fluticasone Propionate 50 MCG/ACT 2 sprays in each nos tril Nasally every morning for 90 day(s) Next Appt Details Provider Name:Landen Dyson, 2020-12-26 0 1:30:00 PM, [address] [facility], , [place], [address], Insurance Providers Payer Name Payer Address Payer Phone Insured Name Patient Relati onship to Insured Coverage Start Date Coverage End Date [facility] [address] [address] [facility] [phone] [phone] INA SORIANO
--- OUTSIDE RECORDS SUMMARY | 2021-03-12 20:02 | CCD ---
Author Author [facility] Organization [facility] Address Unknown Phone Unavailable Care Team Providers Care Forging Press Lever Tender Name Role Phone Karyn, Sneha PA Unavailable Unavailable Karyn, Sneha PA Unavailable Unavailable Karyn, Sneha PA Unavailable Unavailable Karyn, Sneha PA Unavailable Unavailable Karyn, Sneha PA Unavailable Unavailable Karyn, Sneha PA Unavailable Unavailable Karyn, Sneha PA Unavailable Unavailable Karyn, Sneha PA Unavailable Unavailable Karyn, Sneha PA Unavailable Unavailable Karyn, Sneha PA Unavailable Unavailable CHRIS, FRANCIS LASHAWN MANAGER OF DRILLING-C Unavailable Unavailable CHRIS, FRANCIS LASHAWN MANAGER OF DRILLING-C Unavailable Unavailable CHRIS, FRANCIS LASHAWN MANAGER OF DRILLING-C Unavailable Unavailable CHRIS, FRANCIS LASHAWN MANAGER OF DRILLING-C Unavailable Unavailable CHRIS, FRANCIS LASHAWN MANAGER OF DRILLING-C Unavailable Unavailable CHRIS, FRANCIS LASHAWN MANAGER OF DRILLING-C Unavailable Unavailable CHRIS, FRANCIS LASHAWN MANAGER OF DRILLING-C Unavailable Unavailable CHRIS, FRANCIS LASHAWN MANAGER OF DRILLING-C Unavailable Unavailable CHRIS, FRANCIS LASHAWN MANAGER OF DRILLING-C Unavailable Unavailable CHRIS, FRANCIS LASHAWN MANAGER OF DRILLING-C Unavailable Unavailable CHRIS, FRANCIS LASHAWN MANAGER OF DRILLING-C Unavailable Unavailable CHRIS, FRANCIS LASHAWN MANAGER OF DRILLING-C Unavailable Unavailable CHRIS, FRANCIS LASHAWN MANAGER OF DRILLING-C Unavailable Unavailable CHRIS, FRANCIS LASHAWN MANAGER OF DRILLING-C Unavailable Unavailable CHRIS, FRANCIS LASHAWN MANAGER OF DRILLING-C Unavailable Unavailable CHRIS, FRANCIS LASHAWN MANAGER OF DRILLING-C Unavailable Unavailable CHRIS, FRANCIS LASHAWN MANAGER OF DRILLING-C Unavailable Unavailable Re-disclosure Warning The records that you [...] is protected by Article 27-F of the [place] Public Health law. If you continue you may have access to information: Regarding HIV / AIDS; Provided by facilities licensed or operated by the [facility] Office of Mental Health; or Provided by the [facility] Office for People With Developmental Disabilities. If such information is present, then the following [facility] mandated warning applies: This information has been [...] law may result in a fine or chcf sentence or both. A general authorization for the release of medical or other information is NOT sufficient authorization for further disc losure. Allergies and Adverse Reactions Type Description Substance Reaction Status Data Source(s ) NKDA NKDA NKDA active NETSMART ([facility]) Encounters Encounter Providers Location Date Indications Data Source(s ) Unknown [address] [facility] [address] 02/28/2021 12:00:00 AM EDT [facility] [place] [address] [facility] [address] 02/15/2021 12:00:00 AM EDT [facility] [place] [address] [facility] [address] 02/14/2021 12:00:00 AM EDT [facility] [place] [place] [address] [facility] [address] 02/10/2021 12:00:00 AM EDT eCW1 ([facility] [place]) [place] [address] [facility] [address] 02/03/2021 12:00:00 AM EDT [facility] Outpatient Attender: LASHAWN HONEYCUTT-Kaitlyn Gardiner/Patsy/Mir/Florence mercedes 02/01/2021 03:15:00 PM EDT MEDENT ([facility]) [place] [address] [facility] [address] 01/20/2021 12:00:00 AM EDT eCW1 ([facility]) [place] [address] [facility] [place] [address] 01/18/2021 12:00:00 AM EDT eCW1 ([facility]) Unknown [address] [facility] [place] [address] 01/16/2021 12:00:00 AM EDT eCW1 ([facility]) Unknown [address] [facility] [place] [address] 01/13/2021 12:00:00 AM EDT eCW1 ([facility]) Unknown [address] [facility] [address] 01/05/2021 12:00:00 AM EDT [facility] [address] [facility] [address] 01/03/2021 12:00:00 AM EDT [facility]CW1 [facility] Outpatient [address] [facility] [address] 12/26/2020 12:00:00 AM EDT eCW1 ([facility]) [place] [address] [facility] [address] 12/19/2020 12:00:00 AM EDT eCW1 ([facility] Unknown [address] [facility] [address] 12/05/2020 12:00:00 AM EDT eCW1 ([facility]) Unknown [address] [facility] [address] 12/01/2020 12:00:00 AM EDT eCW1 ([facility]) Unknown [address] [facility] [address] 11/28/2020 12:00:00 AM EDT eCW1 ([facility]) Unknown [address] [facility] [address] 11/14/2020 12:00:00 AM EDT eCW1 ([facility]) Outpatient Attender: LASHAWN Gardiner/Patsy/Mir/Florence mercedes 10/20/2020 02:45:00 PM EDT MEDENT ([facility]) Unknown [address] [facility] [address] 09/27/2020 12:00:00 AM EDT eCW1 ([facility]) Outpatient [address] [facility] [address] 09/27/2020 12:00:00 AM EDT eCW1 ([facility]) Unknown [address] [facility] [address] 09/21/2020 12:00:00 AM EDT eCW1 ([facility]) Unknown [address] [facility] [address] 09/14/2020 12:00:00 AM EDT eCW1 ([facility]) Unknown [address] [facility] [address] 09/12/2020 12:00:00 AM EDT eCW1 [facility]) Office Visit, Est Pt., Level 3 PC [address] [place] [address] 09/09/2020 12:00:00 AM EDT eCW1 ([facility]) Unknown [address] [facility] [address] 09/08/2020 12:00:00 AM EDT eCW1 ([facility]) Unknown [address] [facility] Y [address] 09/01/2020 12:00:00 AM EDT eCW1 ([facility]) Unknown [address] [facility] [address] 08/29/2020 12:00:00 AM EDT eCW1 ([facility]) Unknown [address] [facility] Y [address] 08/26/2020 12:00:00 AM EDT eCW1 ([facility]) Office Visit, Est Pt., Level 3 PC [address] [place] [address] 08/23/2020 12:00:00 AM EDT eCW1 ([facility]) Unknown [address] [facility] Y [address] 08/23/2020 12:00:00 AM EDT eCW1 ([facility]) Outpatient Attender: Sneha KAT 0 07/25/2020 02:40:07 PM EDT - 07/25/2020 03:29:15 PM EDT DocuTap ([facility]) Unknown [address] [facility] Y [address] 07/12/2020 12:00:00 AM EDT eCW1 ([facility]) Outpatient [address] [facility] [address] 07/11/2020 12:00:00 AM EDT eCW1 ([facility]) Unknown [address] [facility] [address] 07/06/2020 12:00:00 AM EST eCW1 ([facility]) Unknown [address] [facility] [address] 07/04/2020 12:00:00 AM EST eCW1 ([facility]) Office Visit, Est Pt., Level 3 PC [address] [place] [address] 06/30/2020 12:00:00 AM EST eCW1 ([facility]) Unknown [address] [facility] [address] 06/29/2020 12:00:00 AM EST eCW1 ([facility]) Unknown [address] [facility] [address] 06/28/2020 12:00:00 AM EST eCW1 ([facility]) Unknown [address] [facility] [address] 06/27/2020 12:00:00 AM EST eCW1 ([facility]) 06/27/2020 12:00:00 AM EST - 021 03:06:51 PM EST NETSMART ([facility]) Unknown [address] [facility] [address] 06/24/2020 12:00:00 AM EST eCW1 ([facility]) Unknown [address] [facility] [address] 06/21/2020 12:00:00 AM EST eCW1 ([facility]) Unknown [address] [facility] [address] 06/21/2020 12:00:00 AM EST eCW1 ([facility]) Unknown [address] [facility] [address] 06/21/2020 12:00:00 AM EST eCW1 ([facility]) Office Visit, Est Pt., Level 3 PC [address] [place] [address] 06/14/2020 12:00:00 AM EST eCW1 ([facility]) Unknown [address] [facility] [address] 06/13/2020 12:00:00 AM EST eCW1 ([facility]) Outpatient [address] [facility] [address] 06/02/2020 12:00:00 AM EST eCW1 ([facility]) Unknown [address] [facility] [address] 05/26/2020 12:00:00 AM EST eCW1 ([facility]) Unknown [address] [facility] [address] 05/26/2020 12:00:00 AM EST eCW1 ([facility]) Unknown [address] [facility] [address] 05/17/2020 12:00:00 AM EST eCW1 ([facility]) Unknown [address] [facility] [address] 05/16/2020 12:00:00 AM EST eCW1 ([facility]) Unknown [address] [facility] [address] 05/12/2020 12:00:00 AM EST eCW1 ([facility]) Unknown [address] [facility] [address] 05/12/2020 12:00:00 AM EST eCW1 ([facility]) Unknown [address] [facility] [address] 04/27/2020 12:00:00 AM EST eCW1 ([facility]) Unknown [address] [facility] [address] 04/12/2020 12:00:00 AM EST eCW1 ([facility]) Unknown [address] [facility] [address] 03/17/2020 12:00:00 AM EST eCW1 ([facility]) Outpatient [address] [facility] [address] 03/14/2020 12:00:00 AM EST eCW1 ([facility]) Unknown [address] [facility] [address] 03/11/2020 12:00:00 AM EST eCW1 ([facility]) Unknown [address] [facility] [address] 03/08/2020 12:00:00 AM EST eCW1 ([facility]) Unknown [address] [facility] Y [address] 03/03/2020 12:00:00 AM EST eCW1 ([facility]) Unknown [address] [facility] [address] 03/03/2020 12:00:00 AM EST eCW1 ([facility]) Office Visit, Est Pt., Level 3 PC [address] [place] [address] 03/02/2020 12:00:00 AM EST eCW1 ([facility]) Unknown [address] [facility] [place] [address] 02/29/2020 12:00:00 AM EST eCW1 ([facility]) [place] [address] [facility] Y [address] 02/26/2020 12:00:00 AM EDT eCW1 ([facility]) Unknown [address] [facility] Y [address] 02/25/2020 12:00:00 AM EDT eCW1 ([facility]) Office Visit, Est Pt., Level 3 PC [address] [place] [address] 02/16/2020 12:00:00 AM EDT eCW1 ([facility]) Unknown [address] [facility] [address] 02/03/2020 12:00:00 AM EDT eCW1 ([facility]) Immunizations Vaccine Date Status Description Data Source(s) COVID-19 VACCINE Moderna 09/23/2020 12:00:00 AM EDT completed [place] Vaccine Series Complete: YESThis Data wa s Submitted to [facility] Via [facility]. COVID-19 VACCINE Moderna 08/24/2020 12:00:00 AM EDT completed [place] Vaccine Series Complete: NOThis Data was Submitted to [facility] Via [facility]. Medications Medication Brand Name Start Date Product Form Dose Route Admi nistrative Instructions Pharmacy Instructions Status Indications Reaction Description Data Source(s) FreeStyle Ghulam 14 Day Sensor - FreeStyle Ghulam 14 Day Senso r - 02/13/2021 12:00:00 AM EDT active FreeStyl e Ghulam 14 Day Sensor - eCW1 ([facility]) FreeStyle Ghulam 14 Day Sensor - FreeStyle Ghulam 14 Day Senso r - 02/13/2021 12:00:00 AM EDT active FreeStyl e Ghulam 14 Day Sensor - eCW1 ([facility]) FreeStyle Ghulam 14 Day Sensor - FreeStyle Ghulam 14 Day Senso r - 02/13/2021 12:00:00 AM EDT active FreeStyl e Ghulam 14 Day Sensor - eCW1 ([facility]) FreeStyle Ghulam 14 Day Sensor - FreeStyle Ghulam 14 Day Senso r - 02/13/2021 12:00:00 AM EDT active FreeStyl e Ghulam 14 Day Sensor - eCW1 ([facility]) 31 gauge x 3/16" 01/21/2021 12:00:00 AM EDT needle 30 USE SUBCUTANEOUSLY ONCE DAILY USE SUBCUTANEOUSLY ONCE DAILY SOLD: 01/23/2021 [facility] 31 gauge x 3/16" 01/21/2021 12:00:00 AM EDT needle 30 USE SUBCUTANEOUSLY ONCE DAILY USE SUBCUTANEOUSLY ONCE DAILY SOLD: 02/22/2021 [facility] 31 gauge x 1/4" 01/16/2021 12:00:00 AM EDT needle 30 USE ONCE DAILY UNDER THE SKIN DIRECTED USE ONCE DAILY UNDER THE SKIN DIRECTED SOLD: 01/17/2021 [facility] 20 mg 01/14/2021 12:00:00 AM EDT tablet 135 TAKE 1 & 1/2 TABLETS BY MOUTH EVERY MORNING TAKE 1 & 1/2 TABLETS BY MOUTH EVERY MORNING SOLD: 01/16/2021 [facility] 1 % 01/04/2021 12:00:00 AM EDT gel 300 APPLY 5 GRAMS TO RIGHT KNEE AND RIGHT INDEX FINGER FOUR TIMES A DAY NEEDED APPLY 5 GRAMS TO RIGHT KNEE AND RIGHT INDEX FINGER FOUR TIMES A DAY NEEDED SOLD: 01/23/2021 [facility] 1 % 01/04/2021 12:00:00 AM EDT gel 300 APPLY 5 GRAMS TO RIGHT KNEE AND RIGHT INDEX FINGER FOUR TIMES A DAY NEEDED APPLY 5 GRAMS TO RIGHT KNEE AND RIGHT INDEX FINGER FOUR TIMES A DAY NEEDED SOLD: 01/05/2021 [facility] 300 mg 2021 12:00:00 AM EDT tablet 90 TAKE ONE TABLET BY MOUTH ONCE A DAY TAKE ONE TABLET BY MOUTH ONCE A DAY SOLD: 01/04/2021 [facility] 12 % 12/27/2020 12:00:00 AM EDT cream 385 APPLY TWO TIMES A DAY TO BOTH FEET APPLY TWO TIMES A DAY TO BOTH FEET SOLD: 12/30/2020 [facility] 12 % 12/27/2020 12:00:00 AM EDT cream 385 APPLY TWO TIMES A DAY TO BOTH FEET APPLY TWO TIMES A DAY TO BOTH FEET SOLD: 02/22/2021 [facility] Fluticasone propionate 0.05 MG/ACTUAT Metered Dose [place] 50 mcg/actuation FLUTICASONE PROPIONATE 12/27/2020 12:00:00 AM EDT spray,suspension 48 INHALE 2 SPRAYS IN EACH NOSTRIL EVERY MORNING INHALE 2 SPRAYS IN EACH NOSTRIL EVERY MORNING SOLD: 12/30/2020 [facility] 5 mg 12/27/2020 12:00:00 AM EDT tablet 180 TAKE ONE TABLET BY MOUTH TWO TIMES A DAY TAKE ONE TABLET BY MOUTH TWO TIMES A DAY SOLD: 12/30/2020 [facility] 24 HR Metformin hydrochloride 500 MG Extended Release Oral T ablet METFORMIN HCL 12/20/2020 12:00:00 AM EDT tablet extended release 24 hr 180 TAKE ONE TABLET BY MOUTH TWICE A DAY BEFORE MEALS TAKE ONE TABLET BY MOUTH TWICE A DAY BEF ORE MEALS SOLD: 12/22/2020 [facility] Potassium Chloride 10 MEQ Extended Release Oral Tablet POTAS SIUM CHLORIDE 12/06/2020 12:00:00 AM EDT tablet extended release 180 TAKE ONE TABLET BY MOUTH TWICE A DAY TAKE ONE TABLET BY MOUTH TWICE A DAY SOLD: 12/09/2020 [facility] Potassium Chloride 10 MEQ Extended Release Oral Tablet POTAS SIUM CHLORIDE 12/06/2020 12:00:00 AM EDT tablet extended release 180 TAKE ONE TABLET BY MOUTH TWICE A DAY TAKE ONE TABLET BY MOUTH TWICE A DAY SOLD: 03/09/2021 [facility] glimepiride 4 MG Oral Tablet GLIMEPIRIDE 12/06/2020 12:00:00 AM EDT t ablet 180 TAKE ONE TABLET BY MOUTH TWICE A DAY BEFORE MEALS TAKE ONE TABLET BY MOUTH TWICE A DAY BEFORE MEALS SOLD: 12/09/2020 [facility] Rosuvastatin calcium 20 MG Oral Tablet ROSUVASTATIN CALCIUM 12/06/2020 12:00:00 AM EDT tablet 90 TAKE ONE TABLET BY MOUTH TAKE ONE TABLET BY MOUTH EVERY DAY SOLD: 12/09/2020 [facility] 40 mg 12/02/2020 12:00:00 AM EDT capsule,delayed release (DR/EC) 90 TAKE ONE CAPSULE BY MOUTH EVERY DAY TAKE ONE CAPSULE BY MOUTH EVERY DAY SOLD: 12/03/2020 [facility] 40 mg 12/02/2020 12:00:00 AM EDT capsule,delayed release (DR/EC) 90 TAKE ONE CAPSULE BY MOUTH EVERY DAY TAKE ONE CAPSULE BY MOUTH EVERY DAY SOLD: 02/28/2021 [facility] 5 mg 11/29/2020 12:00:00 AM EDT tablet 60 TAKE ONE TABLET BY MOUTH TWICE A DAY TAKE ONE TABLET BY MOUTH TWICE A DAY SOLD: 12/01/2020 [facility] 31 gauge x 3/16" 11/14/2020 12:00:00 AM EDT needle 30 USE ONCE DAILY DIRECTED USE ONCE DAILY DIRECTED SOLD: 12/20/2020 [facility] 31 gauge x 3/16" 11/14/2020 12:00:00 AM EDT needle 30 USE ONCE DAILY DIRECTED USE ONCE DAILY DIRECTED SOLD: 11/17/2020 [facility] 300 mg 10/26/2020 12:00:00 AM EDT tablet 90 TAKE ONE TABLET BY MOUTH EVERY DAY TAKE ONE TABLET BY MOUTH EVERY DAY SOLD: 10/27/2020 [facility] [employer] 10/26/2020 12:00:00 AM EDT active MEDENT ([facility], ) 12 % 09/30/2020 12:00:00 AM EDT cream 385 APPLY TOPICALLY TWO TIMES A DAY TO BOTH FEET APPLY TOPICALLY TWO TIMES A DAY TO BOTH FEET SOLD: 12/09/2020 [facility] 12 % 09/30/2020 12:00:00 AM EDT cream 385 APPLY TOPICALLY TWO TIMES A DAY TO BOTH FEET APPLY TOPICALLY TWO TIMES A DAY TO BOTH FEET SOLD: 11/08/2020 [facility] 12 % 09/30/2020 12:00:00 AM EDT cream 385 APPLY TOPICALLY TWO TIMES A DAY TO BOTH FEET APPLY TOPICALLY TWO TIMES A DAY TO BOTH FEET SOLD: 10/06/2020 [facility] ammonium lactate 120 MG/ML Topical Cream Ammonium Lact ate 12 % Ammonium Lactate 12 % 09/27/2020 12:00:00 AM EDT 1.0 {application} active Ammonium Lactate 12 % eCW1 ([facility]) ammonium lactate 120 MG/ML Topical Cream Ammonium Lact ate 12 % Ammonium Lactate 12 % 09/27/2020 12:00:00 AM EDT 1.0 {application} active Ammonium Lactate 12 % eCW1 ([facility]) ammonium lactate 120 MG/ML Topical Cream Ammonium Lact ate 12 % Ammonium Lactate 12 % 09/27/2020 12:00:00 AM EDT 1.0 {application} active Ammonium Lactate 12 % eCW1 ([facility]) ammonium lactate 120 MG/ML Topical Cream Ammonium Lact ate 12 % Ammonium Lactate 12 % 09/27/2020 12:00:00 AM EDT 1.0 {application} active Ammonium Lactate 12 % eCW1 ([facility]) ammonium lactate 120 MG/ML Topical Cream Ammonium Lact ate 12 % Ammonium Lactate 12 % 09/27/2020 12:00:00 AM EDT 1.0 {application} active Ammonium Lactate 12 % eCW1 ([facility]) ammonium lactate 120 MG/ML Topical Cream Ammonium Lact ate 12 % Ammonium Lactate 12 % 09/27/2020 12:00:00 AM EDT 1.0 {application} active Ammonium Lactate 12 % eCW1 ([facility]) ammonium lactate 120 MG/ML Topical Cream Ammonium Lact ate 12 % Ammonium Lactate 12 % 09/27/2020 12:00:00 AM EDT 1.0 {application} active Ammonium Lactate 12 % eCW1 ([facility]) ammonium lactate 120 MG/ML Topical Cream Ammonium Lact ate 12 % Ammonium Lactate 12 % 09/27/2020 12:00:00 AM EDT 1.0 {application} active Ammonium Lactate 12 % eCW1 ([facility]) 31 gauge x 3/16" 09/14/2020 12:00:00 AM EDT needle 30 USE DIRECTED ONCE DAILY UNDER THE SKIN USE DIRECTED ONCE DAILY UNDER THE SKIN SOLD: 10/12/2020 [facility] 31 gauge x 3/16" 09/14/2020 12:00:00 AM EDT needle 30 USE DIRECTED ONCE DAILY UNDER THE SKIN USE DIRECTED ONCE DAILY UNDER THE SKIN SOLD: 09/16/2020 [facility] CPAP mask UNK 09/12/2020 12:00:00 AM EDT active CPAP mask eCW1 ([facility]) CPAP mask UNK 09/12/2020 12:00:00 AM EDT active CPAP mask eCW1 ([facility]) CPAP Machine UNK 09/12/2020 12:00:00 AM EDT activ e CPAP Machine eCW1 ([facility]) CPAP Machine UNK 09/12/2020 12:00:00 AM EDT activ e CPAP Machine eCW1 ([facility]) CPAP Machine UNK 09/12/2020 12:00:00 AM EDT activ e CPAP Machine eCW1 ([facility]) CPAP mask UNK 09/12/2020 12:00:00 AM EDT active CPAP mask eCW1 ([facility]) CPAP mask UNK 09/12/2020 12:00:00 AM EDT active CPAP mask eCW1 ([facility]) CPAP mask UNK 09/12/2020 12:00:00 AM EDT active CPAP mask eCW1 ([facility]) CPAP mask UNK 09/12/2020 12:00:00 AM EDT active CPAP mask eCW1 ([facility]) CPAP Machine UNK 09/12/2020 12:00:00 AM EDT activ e CPAP Machine eCW1 ([facility]) CPAP mask UNK 09/12/2020 12:00:00 AM EDT active CPAP mask eCW1 ([facility]) CPAP Machine UNK 09/12/2020 12:00:00 AM EDT activ e CPAP Machine eCW1 ([facility]) CPAP mask UNK 09/12/2020 12:00:00 AM EDT active CPAP mask eCW1 ([facility]) CPAP Machine UNK 09/12/2020 12:00:00 AM EDT activ e CPAP Machine eCW1 ([facility]) CPAP Machine UNK 09/12/2020 12:00:00 AM EDT activ e CPAP Machine eCW1 ([facility]) CPAP mask UNK 09/12/2020 12:00:00 AM EDT active CPAP mask eCW1 ([facility]) CPAP Machine UNK 09/12/2020 12:00:00 AM EDT activ e CPAP Machine eCW1 ([facility]) CPAP Machine UNK 09/12/2020 12:00:00 AM EDT activ e CPAP Machine eCW1 ([facility]) CPAP mask UNK 09/12/2020 12:00:00 AM EDT active CPAP mask eCW1 ([facility]) CPAP Machine UNK 09/12/2020 12:00:00 AM EDT activ e CPAP Machine eCW1 ([facility]) CPAP Machine UNK 09/12/2020 12:00:00 AM EDT activ e CPAP Machine eCW1 ([facility]) CPAP Machine UNK 09/12/2020 12:00:00 AM EDT activ e CPAP Machine eCW1 ([facility]) CPAP mask UNK 09/12/2020 12:00:00 AM EDT active CPAP mask eCW1 ([facility]) CPAP mask UNK 09/12/2020 12:00:00 AM EDT active CPAP mask eCW1 ([facility]) CPAP Machine UNK 09/12/2020 12:00:00 AM EDT activ e CPAP Machine eCW1 ([facility]) CPAP Machine UNK 09/12/2020 12:00:00 AM EDT activ e CPAP Machine eCW1 ([facility]) CPAP mask UNK 09/12/2020 12:00:00 AM EDT active CPAP mask eCW1 ([facility]) CPAP Machine UNK 09/12/2020 12:00:00 AM EDT activ e CPAP Machine eCW1 ([facility]) CPAP Machine UNK 09/12/2020 12:00:00 AM EDT activ e CPAP Machine eCW1 ([facility]) CPAP Machine UNK 09/12/2020 12:00:00 AM EDT activ e CPAP Machine eCW1 ([facility]) CPAP Machine UNK 09/12/2020 12:00:00 AM EDT activ e CPAP Machine eCW1 ([facility]) CPAP Machine UNK 09/12/2020 12:00:00 AM EDT activ e CPAP Machine eCW1 ([facility]) CPAP mask UNK 09/12/2020 12:00:00 AM EDT active CPAP mask eCW1 ([facility]) CPAP mask UNK 09/12/2020 12:00:00 AM EDT active CPAP mask eCW1 ([facility]) CPAP mask UNK 09/12/2020 12:00:00 AM EDT active CPAP mask eCW1 ([facility]) CPAP mask UNK 09/12/2020 12:00:00 AM EDT active CPAP mask eCW1 ([facility]) CPAP mask UNK 09/12/2020 12:00:00 AM EDT active CPAP mask eCW1 ([facility]) CPAP Machine UNK 09/12/2020 12:00:00 AM EDT activ e CPAP Machine eCW1 ([facility]) CPAP Machine UNK 09/12/2020 12:00:00 AM EDT activ e CPAP Machine eCW1 ([facility]) CPAP Machine UNK 09/12/2020 12:00:00 AM EDT activ e CPAP Machine eCW1 ([facility]) CPAP mask UNK 09/12/2020 12:00:00 AM EDT active CPAP mask eCW1 ([facility]) CPAP Machine UNK 09/12/2020 12:00:00 AM EDT activ e CPAP Machine eCW1 ([facility]) CPAP mask UNK 09/12/2020 12:00:00 AM EDT active CPAP mask eCW1 ([facility]) CPAP Machine UNK 09/12/2020 12:00:00 AM EDT activ e CPAP Machine eCW1 ([facility]) CPAP mask UNK 09/12/2020 12:00:00 AM EDT active CPAP mask eCW1 ([facility]) CPAP mask UNK 09/12/2020 12:00:00 AM EDT active CPAP mask eCW1 ([facility]) CPAP mask UNK 09/12/2020 12:00:00 AM EDT active CPAP mask eCW1 ([facility]) CPAP mask UNK 09/12/2020 12:00:00 AM EDT active CPAP mask eCW1 ([facility]) 24 HR Metformin hydrochloride 500 MG Extended Release Oral T ablet METFORMIN HCL 09/07/2020 12:00:00 AM EDT tablet extended release 24 hr 180 TAKE ONE TABLET BY MOUTH TWICE A DAY BEFORE MEALS TAKE ONE TABLET BY MOUTH TWICE A DAY BEF ORE MEALS SOLD: 09/07/2020 [facility] LANCETS 09/07/2020 12:00:00 AM EDT misc 200 USE T O TEST TWO TIMES A DAY USE TO TEST TWO TIMES A DAY SOLD: 09/07/2020 [facility] glimepiride 4 MG Oral Tablet GLIMEPIRIDE 09/07/2020 12:00:00 AM EDT t ablet 180 TAKE ONE TABLET BY MOUTH TWICE A DAY BEFORE MEALS TAKE ONE TABLET BY MOUTH TWICE A DAY BEFORE MEALS SOLD: 09/07/2020 [facility] 50 mg 08/31/2020 12:00:00 AM EDT tablet 90 TAKE ONE TABLET BY MOUTH EVERY DAY DIRECTED TAKE ONE TABLET BY MOUTH EVERY DAY DIRECTED SOLD: 021 [facility] 5 mg 08/28/2020 12:00:00 AM EDT tablet 180 TAKE ONE TABLET BY MOUTH TWICE A DAY [STOP CLOPIDOGREL] TAKE ONE TABLET BY MOUTH TWICE A DAY [STOP CLOPIDOGREL ] SOLD: 08/31/2020 [facility] Rosuvastatin calcium 20 MG Oral Tablet ROSUVASTATIN CALCIUM 08/23/2020 12:00:00 AM EDT tablet 90 TAKE ONE TABLET BY MOUTH MITRA DAY TAKE ONE TABLET BY MOUTH EVERY DAY SOLD: 08/24/2020 [facility] BLOOD SUGAR DIAGNOSTIC 08/10/2020 12:00:00 AM EDT strip 100 TEST TWO TIMES A DAY TEST TWO TIMES A DAY SOLD: 08/12/2020 [facility] BLOOD SUGAR DIAGNOSTIC 08/10/2020 12:00:00 AM EDT strip 100 TEST TWO TIMES A DAY TEST TWO TIMES A DAY SOLD: 11/17/2020 [facility] BLOOD SUGAR DIAGNOSTIC 08/10/2020 12:00:00 AM EDT strip 100 TEST TWO TIMES A DAY TEST TWO TIMES A DAY SOLD: 09/29/2020 [facility] 50 mcg/actuation 08/02/2020 12:00:00 AM EDT spray,suspension 48 INSTILL 2 SPRAYS IN EACH NOSTRIL EVERY MORNING INSTILL 2 SPRAYS IN EACH NOSTRIL EVERY MORNING SOLD: 08/07/2020 [facility] 300 mg 07/22/2020 12:00:00 AM EDT tablet 90 TAKE ONE TABLET BY MOUTH EVERY DAY TAKE ONE TABLET BY MOUTH EVERY DAY SOLD: 07/25/2020 [facility] Optifoam Gentle Foam Dressings UNK 06/30/2020 12:00:00 AM EST active Optifoam Gentle Foam Dressings eCW1 ([facility]) Optifoam Gentle Foam Dressings UNK 06/30/2020 12:00:00 AM EST active Optifoam Gentle [employer]am [employer]ings eCW1 ([facility]) Polyethylene Glycol 400 4 MG/ML / Propyl meliton glycol 3 MG/ML Ophthalmic Solution [Systane] Systane Ultra 0.4-0.3 % Systane Ultra 0.4-0.3 % 06/30/2020 12:00:00 AM EST active Systane Ultra 0.4 -0.3 % eCW1 ([facility]) Optifoam Gentle Foam Dressings UNK 06/30/2020 12:00:00 AM EST active Optifoam Gentle [employer]am [employer]ings eCW1 ([facility]) Polyethylene Glycol 400 4 MG/ML / Propyl meliton glycol 3 MG/ML Ophthalmic Solution [Systane] Systane Ultra 0.4-0.3 % Systane Ultra 0.4-0.3 % 06/30/2020 12:00:00 AM EST active Systane Ultra 0.4 -0.3 % eCW1 ([facility]) Optifoam Gentle Foam Dressings UNK 06/30/2020 12:00:00 AM EST active Optifoam Gentle [employer]am [employer]ings eCW1 ([facility]) Optifoam Gentle Foam Dressings UNK 06/30/2020 12:00:00 AM EST active Optifoam Gentle [employer]am [employer]ings eCW1 ([facility]) Polyethylene Glycol 400 4 MG/ML / Propyl meliton glycol 3 MG/ML Ophthalmic Solution [Systane] Systane Ultra 0.4-0.3 % Systane Ultra 0.4-0.3 % 06/30/2020 12:00:00 AM EST active Systane Ultra 0.4 -0.3 % eCW1 ([facility]) Polyethylene Glycol 400 4 MG/ML / Propyl meliton glycol 3 MG/ML Ophthalmic Solution [Systane] Systane Ultra 0.4-0.3 % Systane Ultra 0.4-0.3 % 06/30/2020 12:00:00 AM EST active Systane Ultra 0.4 -0.3 % eCW1 ([facility]) Optifoam Gentle Foam [employer]ings UNK 06/30/2020 12:00:00 AM EST active Optifoam Gentle [employer]am [employer]ings eCW1 ([facility]) Optifoam Gentle Foam Dressings UNK 06/30/2020 12:00:00 AM EST active Optifoam Gentle Foam [employer]ings eCW1 ([facility]) Optifoam Gentle Foam Dressings UNK 06/30/2020 12:00:00 AM EST active Optifoam Gentle Foam [employer]ings eCW1 ([facility]) Optifoam Gentle Foam Dressings UNK 06/30/2020 12:00:00 AM EST active Optifoam Gentle [employer]am [employer]ings eCW1 ([facility]) Polyethylene Glycol 400 4 MG/ML / Propyl meliton glycol 3 MG/ML Ophthalmic Solution [Systane] Systane Ultra 0.4-0.3 % Systane Ultra 0.4-0.3 % 06/30/2020 12:00:00 AM EST active Systane Ultra 0.4 -0.3 % eCW1 ([facility]) Optifoam Gentle Foam Dressings UNK 06/30/2020 12:00:00 AM EST active Optifoam Gentle Foam Dressings eCW1 ([facility]) Optifoam Gentle Foam Dressings UNK 06/30/2020 12:00:00 AM EST active Optifoam Gentle Foam [employer]ings eCW1 ([facility]) Polyethylene Glycol 400 4 MG/ML / Propyl meliton glycol 3 MG/ML Ophthalmic Solution [Systane] Systane Ultra 0.4-0.3 % Systane Ultra 0.4-0.3 % 06/30/2020 12:00:00 AM EST active Systane Ultra 0.4 -0.3 % eCW1 ([facility]) Optifoam Gentle Foam Dressings UNK 06/30/2020 12:00:00 AM EST active Optifoam Gentle Foam Dressings eCW1 ([facility]) Polyethylene Glycol 400 4 MG/ML / Propyl meliton glycol 3 MG/ML Ophthalmic Solution [Systane] Systane Ultra 0.4-0.3 % Systane Ultra 0.4-0.3 % 06/30/2020 12:00:00 AM EST active Systane Ultra 0.4 -0.3 % eCW1 ([facility]) Optifoam Gentle Foam Dressings UNK 06/30/2020 12:00:00 AM EST active Optifoam Gentle Foam Dressings eCW1 ([facility]) Optifoam Gentle Foam Dressings UNK 06/30/2020 12:00:00 AM EST active Optifoam Gentle Foam Dressings eCW1 ([facility]) Optifoam Gentle Foam Dressings UNK 06/30/2020 12:00:00 AM EST active Optifoam Gentle Foam [employer]ings eCW1 ([facility]) Optifoam Gentle Foam Dressings UNK 06/30/2020 12:00:00 AM EST active Optifoam Gentle Foam Dressings eCW1 ([facility]) Optifoam Gentle Foam Dressings UNK 06/30/2020 12:00:00 AM EST active Optifoam Gentle Foam [employer]ings eCW1 ([facility]) Polyethylene Glycol 400 4 MG/ML / Propyl meliton glycol 3 MG/ML Ophthalmic Solution [Systane] Systane Ultra 0.4-0.3 % Systane Ultra 0.4-0.3 % 06/30/2020 12:00:00 AM EST active Systane Ultra 0.4 -0.3 % eCW1 ([facility]) Optifoam Gentle Foam Dressings UNK 06/30/2020 12:00:00 AM EST active Optifoam Gentle Foam [employer]ings eCW1 ([facility]) Polyethylene Glycol 400 4 MG/ML / Propyl meliton glycol 3 MG/ML Ophthalmic Solution [Systane] Systane Ultra 0.4-0.3 % Systane Ultra 0.4-0.3 % 06/30/2020 12:00:00 AM EST active Systane Ultra 0.4 -0.3 % eCW1 ([facility]) Polyethylene Glycol 400 4 MG/ML / Propyl meliton glycol 3 MG/ML Ophthalmic Solution [Systane] Systane Ultra 0.4-0.3 % Systane Ultra 0.4-0.3 % 06/30/2020 12:00:00 AM EST active Systane Ultra 0.4 -0.3 % eCW1 ([facility]) Optifoam Gentle Foam Dressings UNK 06/30/2020 12:00:00 AM EST active Optifoam Gentle Foam Dressings eCW1 ([facility]) Optifoam Gentle Foam Dressings UNK 06/30/2020 12:00:00 AM EST active Optifoam Gentle Foam Dressings eCW1 ([facility]) Optifoam Gentle Foam Dressings UNK 06/30/2020 12:00:00 AM EST active Optifoam Gentle Foam Dressings eCW1 ([facility]) Optifoam Gentle Foam Dressings UNK 06/30/2020 12:00:00 AM EST active Optifoam Gentle Foam Dressings eCW1 ([facility]) Optifoam Gentle Foam Dressings UNK 06/30/2020 12:00:00 AM EST active Optifoam Gentle Foam Dressings eCW1 ([facility]) Polyethylene Glycol 400 4 MG/ML / Propyl meliton glycol 3 MG/ML Ophthalmic Solution [Systane] Systane Ultra 0.4-0.3 % Systane Ultra 0.4-0.3 % 06/30/2020 12:00:00 AM EST active Systane Ultra 0.4 -0.3 % eCW1 ([facility]) Polyethylene Glycol 400 4 MG/ML / Propyl meliton glycol 3 MG/ML Ophthalmic Solution [Systane] Systane Ultra 0.4-0.3 % Systane Ultra 0.4-0.3 % 06/30/2020 12:00:00 AM EST active Systane Ultra 0.4 -0.3 % eCW1 ([facility]) Optifoam Gentle Foam Dressings UNK 06/30/2020 12:00:00 AM EST active Optifoam Gentle Foam [employer]ings eCW1 ([facility]) Polyethylene Glycol 400 4 MG/ML / Propyl meliton glycol 3 MG/ML Ophthalmic Solution [Systane] Systane Ultra 0.4-0.3 % Systane Ultra 0.4-0.3 % 06/30/2020 12:00:00 AM EST active Systane Ultra 0.4 -0.3 % eCW1 ([facility]) Optifoam Gentle Foam Dressings UNK 06/30/2020 12:00:00 AM EST active Optifoam Gentle Foam Dressings eCW1 ([facility]) Optifoam Gentle Foam Dressings UNK 06/30/2020 12:00:00 AM EST active Optifoam Gentle Foam Dressings eCW1 ([facility]) Optifoam Gentle Foam Dressings UNK 06/30/2020 12:00:00 AM EST active Optifoam Gentle Foam Dressings eCW1 ([facility]) Optifoam Gentle Foam Dressings UNK 06/30/2020 12:00:00 AM EST active Optifoam Gentle Foam Dressings eCW1 ([facility]) Optifoam Gentle Foam Dressings UNK 06/30/2020 12:00:00 AM EST active Optifoam Gentle Foam Dressings eCW1 ([facility]) Optifoam Gentle Foam Dressings UNK 06/30/2020 12:00:00 AM EST active Optifoam Gentle Foam Dressings eCW1 ([facility]) Optifoam Gentle Foam Dressings UNK 06/30/2020 12:00:00 AM EST active Optifoam Gentle Foam Dressings eCW1 ([facility]) Polyethylene Glycol 400 4 MG/ML / Propyl meliton glycol 3 MG/ML Ophthalmic Solution [Systane] Systane Ultra 0.4-0.3 % Systane Ultra 0.4-0.3 % 06/30/2020 12:00:00 AM EST active Systane Ultra 0.4 -0.3 % eCW1 ([facility]) Optifoam Gentle Foam Dressings UNK 06/30/2020 12:00:00 AM EST active Optifoam Gentle Foam Dressings eCW1 ([facility]) Polyethylene Glycol 400 4 MG/ML / Propyl meliton glycol 3 MG/ML Ophthalmic Solution [Systane] Systane Ultra 0.4-0.3 % Systane Ultra 0.4-0.3 % 06/30/2020 12:00:00 AM EST active Systane Ultra 0.4 -0.3 % eCW1 ([facility]) Optifoam Gentle Foam Dressings UNK 06/30/2020 12:00:00 AM EST active Optifoam Gentle Foam Dressings eCW1 ([facility]) Optifoam Gentle Foam Dressings UNK 06/30/2020 12:00:00 AM EST active Optifoam Gentle Foam Dressings eCW1 ([facility]) Optifoam Gentle Foam Dressings UNK 06/30/2020 12:00:00 AM EST active Optifoam Gentle Foam Dressings eCW1 ([facility]) Polyethylene Glycol 400 4 MG/ML / Propyl meliton glycol 3 MG/ML Ophthalmic Solution [Systane] Systane Ultra 0.4-0.3 % Systane Ultra 0.4-0.3 % 06/30/2020 12:00:00 AM EST active Systane Ultra 0.4 -0.3 % eCW1 ([facility]) Optifoam Gentle Foam Dressings UNK 06/30/2020 12:00:00 AM EST active Optifoam Gentle Foam Dressings eCW1 ([facility]) Optifoam Gentle Foam Dressings UNK 06/30/2020 12:00:00 AM EST active Optifoam Gentle Foam Dressings eCW1 ([facility]) COMPRESSION STOCKINGS 15-20 mmHg UNK 06/27/2020 12:00:00 AM EST active COMPRESSION STOCKINGS 15-20 mmHg eCW1 ([facility]) COMPRESSION STOCKINGS 15-20 mmHg UNK 06/27/2020 12:00:00 AM EST active COMPRESSION STOCKINGS 15-20 mmHg eCW1 ([facility]) COMPRESSION STOCKINGS 15-20 mmHg UNK 06/27/2020 12:00:00 AM EST active COMPRESSION STOCKINGS 15-20 mmHg eCW1 ([facility]) COMPRESSION STOCKINGS 15-20 mmHg UNK 06/27/2020 12:00:00 AM EST active COMPRESSION STOCKINGS 15-20 mmHg eCW1 ([facility]) COMPRESSION STOCKINGS 15-20 mmHg UNK 06/27/2020 12:00:00 AM EST active COMPRESSION STOCKINGS 15-20 mmHg eCW1 ([facility]) COMPRESSION STOCKINGS 15-20 mmHg UNK 06/27/2020 12:00:00 AM EST active COMPRESSION STOCKINGS 15-20 mmHg eCW1 ([facility]) COMPRESSION STOCKINGS 15-20 mmHg UNK 06/27/2020 12:00:00 AM EST active COMPRESSION STOCKINGS 15-20 mmHg eCW1 ([facility]) COMPRESSION STOCKINGS 15-20 mmHg UNK 06/27/2020 12:00:00 AM EST active COMPRESSION STOCKINGS 15-20 mmHg eCW1 ([facility]) COMPRESSION STOCKINGS 15-20 mmHg UNK 06/27/2020 12:00:00 AM EST active COMPRESSION STOCKINGS 15-20 mmHg eCW1 ([facility]) COMPRESSION STOCKINGS 15-20 mmHg UNK 06/27/2020 12:00:00 AM EST active COMPRESSION STOCKINGS 15-20 mmHg eCW1 ([facility]) COMPRESSION STOCKINGS 15-20 mmHg UNK 06/27/2020 12:00:00 AM EST active COMPRESSION STOCKINGS 15-20 mmHg eCW1 ([facility]) COMPRESSION STOCKINGS 15-20 mmHg UNK 06/27/2020 12:00:00 AM EST active COMPRESSION STOCKINGS 15-20 mmHg eCW1 ([facility]) COMPRESSION STOCKINGS 15-20 mmHg UNK 06/27/2020 12:00:00 AM EST active COMPRESSION STOCKINGS 15-20 mmHg eCW1 ([facility]) COMPRESSION STOCKINGS 15-20 mmHg UNK 06/27/2020 12:00:00 AM EST active COMPRESSION STOCKINGS 15-20 mmHg eCW1 ([facility]) COMPRESSION STOCKINGS 15-20 mmHg UNK 06/27/2020 12:00:00 AM EST active COMPRESSION STOCKINGS 15-20 mmHg eCW1 ([facility]) COMPRESSION STOCKINGS 15-20 mmHg UNK 06/27/2020 12:00:00 AM EST active COMPRESSION STOCKINGS 15-20 mmHg eCW1 ([facility]) COMPRESSION STOCKINGS 15-20 mmHg UNK 06/27/2020 12:00:00 AM EST active COMPRESSION STOCKINGS 15-20 mmHg eCW1 ([facility]) COMPRESSION STOCKINGS 15-20 mmHg UNK 06/27/2020 12:00:00 AM EST active COMPRESSION STOCKINGS 15-20 mmHg eCW1 ([facility]) COMPRESSION STOCKINGS 15-20 mmHg UNK 06/27/2020 12:00:00 AM EST active COMPRESSION STOCKINGS 15-20 mmHg eCW1 ([facility]) MetFORMIN HCl 500 MG MetFORMIN HCl 06/27/2020 12:00:00 AM EST 50 0.0 {mg} completed NETSMART ([facility]) Ferrous Sulfate 325 (65 Fe) MG Ferrous Sulfate 06/27/2020 12:00:00 AM EST completed NETSMART ([facility]) Vitamin D3 1000 UNIT Vitamin D3 06/27/2020 12:00:00 AM EST 5000. 0 {Units} completed NETSMART ([facility]) Glimepiride 4 MG Glimepiride 06/27/2020 12:00:00 AM EST 4.0 {mg} completed NETSMART ([facility]) COMPRESSION STOCKINGS 15-20 mmHg UNK 06/27/2020 12:00:00 AM EST active COMPRESSION STOCKINGS 15-20 mmHg eCW1 ([facility]) COMPRESSION STOCKINGS 15-20 mmHg UNK 06/27/2020 12:00:00 AM EST active COMPRESSION STOCKINGS 15-20 mmHg eCW1 ([facility]) COMPRESSION STOCKINGS 15-20 mmHg UNK 06/27/2020 12:00:00 AM EST active COMPRESSION STOCKINGS 15-20 mmHg eCW1 ([facility]) COMPRESSION STOCKINGS 15-20 mmHg UNK 06/27/2020 12:00:00 AM EST active COMPRESSION STOCKINGS 15-20 mmHg eCW1 ([facility]) Fluticasone Propionate 50 MCG/ACT Fluticasone Propionate 04/2020 12:00:00 AM EST completed NETSMAR T ([facility]) Tresiba FlexTouch 200 UNIT/ML Tresiba FlexTouch 06/27/2020 12:00:00 AM EST 10.0 {unit} completed [facility]SMART ( [facility]) Eliquis 5 MG Eliquis 06/27/2020 12:00:00 AM EST 5.0 {mg} completed [facility]SMART ([facility] ) COMPRESSION STOCKINGS 15-20 mmHg UNK 06/27/2020 12:00:00 AM EST active COMPRESSION STOCKINGS 15-20 mmHg eCW1 ([facility]) Torsemide 20 MG Torsemide 06/27/2020 12:00:00 AM EST 30.0 {mg} completed [facility]SMART ([facility]) Potassium Chloride ER 10 MEQ Potassium Chloride ER 06/27/2020 12:00 :00 AM EST 10.0 {mEq} completed [facility]SMART ([facility]) COMPRESSION STOCKINGS 15-20 mmHg UNK 06/27/2020 12:00:00 AM EST active COMPRESSION STOCKINGS 15-20 mmHg eCW1 ([facility]) Aspirin EC Adult Low Strength 81 MG Aspirin EC Adult Low Str ength 06/27/2020 12:00:00 AM EST 81.0 {mg} completed [facility]SMART ([facility]) Vitamin B12 1000 MCG Vitamin B12 06/27/2020 12:00:00 AM EST 1000 .0 {mcg} completed [facility]SMART ([facility]) Rosuvastatin Calcium 20 MG Rosuvastatin Calcium 06/27/2020 12:00:00 AM EST 20.0 {mg} completed [facility]SMART ([facility]) Omeprazole 40 MG Omeprazole 06/27/2020 12:00:00 AM EST 40.0 {mg} completed [facility]SMART ([facility]) COMPRESSION STOCKINGS 15-20 mmHg UNK 06/27/2020 12:00:00 AM EST active COMPRESSION STOCKINGS 15-20 mmHg eCW1 ([facility]) Allopurinol 300 MG Allopurinol 06/27/2020 12:00:00 AM EST 300.0 {mg} completed [facility]SMART ([facility]) COMPRESSION STOCKINGS 15-20 mmHg UNK 06/27/2020 12:00:00 AM EST active COMPRESSION STOCKINGS 15-20 mmHg eCW1 ([facility]) COMPRESSION STOCKINGS 15-20 mmHg UNK 06/27/2020 12:00:00 AM EST active COMPRESSION STOCKINGS 15-20 mmHg eCW1 ([facility]) COMPRESSION STOCKINGS 15-20 mmHg UNK 06/27/2020 12:00:00 AM EST active COMPRESSION STOCKINGS 15-20 mmHg eCW1 ([facility]) COMPRESSION STOCKINGS 15-20 mmHg UNK 06/27/2020 12:00:00 AM EST active COMPRESSION STOCKINGS 15-20 mmHg eCW1 ([facility]) COMPRESSION STOCKINGS 15-20 mmHg UNK 06/27/2020 12:00:00 AM EST active COMPRESSION STOCKINGS 15-20 mmHg eCW1 ([facility]) COMPRESSION STOCKINGS 15-20 mmHg UNK 06/27/2020 12:00:00 AM EST active COMPRESSION STOCKINGS 15-20 mmHg eCW1 ([facility]) COMPRESSION STOCKINGS 15-20 mmHg UNK 06/27/2020 12:00:00 AM EST active COMPRESSION STOCKINGS 15-20 mmHg eCW1 ([facility]) COMPRESSION STOCKINGS 15-20 mmHg UNK 06/27/2020 12:00:00 AM EST active COMPRESSION STOCKINGS 15-20 mmHg eCW1 ([facility]) COMPRESSION STOCKINGS 15-20 mmHg UNK 06/27/2020 12:00:00 AM EST active COMPRESSION STOCKINGS 15-20 mmHg eCW1 ([facility]) COMPRESSION STOCKINGS 15-20 mmHg UNK 06/27/2020 12:00:00 AM EST active COMPRESSION STOCKINGS 15-20 mmHg eCW1 ([facility]) COMPRESSION STOCKINGS 15-20 mmHg UNK 06/27/2020 12:00:00 AM EST active COMPRESSION STOCKINGS 15-20 mmHg eCW1 ([facility]) COMPRESSION STOCKINGS 15-20 mmHg UNK 06/27/2020 12:00:00 AM EST active COMPRESSION STOCKINGS 15-20 mmHg eCW1 ([facility]) Diclofenac Sodium 1 % Diclofenac Sodium 06/27/2020 12:00:00 AM EST completed NETSMART ([facility]) COMPRESSION STOCKINGS 15-20 mmHg UNK 06/27/2020 12:00:00 AM EST active COMPRESSION STOCKINGS 15-20 mmHg eCW1 ([facility]) COMPRESSION STOCKINGS 15-20 mmHg UNK 06/27/2020 12:00:00 AM EST active COMPRESSION STOCKINGS 15-20 mmHg eCW1 ([facility]) 20 mg 06/22/2020 12:00:00 AM EST tablet 135 TAKE ONE AND ONE-HALF TABLETS BY MOUTH EVERY MORNING TAKE ONE AND ONE-HALF TABLETS BY MOUTH EVERY MORNING S OLD: 06/24/2020 [facility] 20 mg 06/22/2020 12:00:00 AM EST tablet 135 TAKE ONE AND ONE-HALF TABLETS BY MOUTH EVERY MORNING TAKE ONE AND ONE-HALF TABLETS BY MOUTH EVERY MORNING S OLD: 09/21/2020 [facility] Potassium Chloride 10 MEQ Extended Release Oral Tablet POTAS SIUM CHLORIDE 06/11/2020 12:00:00 AM EST tablet extended release 180 TAKE ONE TABLET BY MOUTH TWO TIMES A DAY TAKE ONE TABLET BY MOUTH TWO TIMES A DAY SOLD: 09/11/2020 [facility] Potassium Chloride 10 MEQ Extended Release Oral Tablet POTAS SIUM CHLORIDE 06/11/2020 12:00:00 AM EST tablet extended release 180 TAKE ONE TABLET BY MOUTH TWO TIMES A DAY TAKE ONE TABLET BY MOUTH TWO TIMES A DAY SOLD: 06/12/2020 [facility] 1 % 05/31/2020 12:00:00 AM EST gel 100 APPLY 5GRAMS TO RIGHT KNEE AND RIGHT INDEX FINGER FOUR TIMES A DAY NEEDED APPLY 5GRAMS TO RIGHT KNEE AND RIGHT INDEX FINGER FOUR TIMES A DAY NEEDED SOLD: 09/21/2020 [facility] 5 mg 05/31/2020 12:00:00 AM [...] ONE CAPSULE BY MOUTH EVERY DAY SOLD: 08/31/2020 [facility] 40 mg 05/28/2020 12:00:00 AM EST capsule,delayed release (DR/EC) 90 TAKE ONE CAPSULE BY MOUTH EVERY DAY TAKE ONE CAPSULE BY MOUTH EVERY DAY SOLD: 05/30/2020 [facility] 200 unit/mL (3 mL) 05/17/2020 12:00:00 AM EST insulin pen 9 INJECT 10 UNITS UNDER THE SKIN AT BEDTIME INJECT 10 UNITS UNDER THE SKIN AT BEDTIME SOLD: 02/22/2021 [facility] 200 unit/mL (3 mL) 05/17/2020 12:00:00 AM EST insulin pen 9 INJECT 10 UNITS UNDER THE SKIN AT BEDTIME INJECT 10 UNITS UNDER THE SKIN AT BEDTIME SOLD: 11/13/2020 [facility] 200 unit/mL (3 mL) 05/17/2020 12:00:00 AM EST insulin pen 9 INJECT 10 UNITS UNDER THE SKIN AT BEDTIME INJECT 10 UNITS UNDER THE SKIN AT BEDTIME SOLD: 05/17/2020 [facility] 200 unit/mL (3 mL) 05/17/2020 12:00:00 AM EST insulin pen 9 INJECT 10 UNITS UNDER THE SKIN AT BEDTIME INJECT 10 UNITS UNDER THE SKIN AT BEDTIME SOLD: 08/15/2020 [facility] Pen [place] 31G X 6 MM [place] 31G X 6 MM 05/13/2020 12:00:[address] active Pen [place] 31G X 6 MM eC W1 ([facility]) Pen [place] UNK 05/13/2020 12:00:00 AM EST active [place] eCW1 ([facility]) [place] UNK 05/13/2020 12:00:00 AM EST active [place] eCW1 ([facility]) Tresiba FlexTouch 200 UNIT/ML Tresiba FlexTouch 200 UNIT/ML 05/13/2020 12:00:00 AM EST active Tresiba FlexTouch 200 UNIT/ML eCW1 ([facility]) Pen [place] UNK 05/13/2020 12:00:00 AM EST active [place] eCW1 ([facility]) Pen [place] UNK 05/13/2020 12:00:00 AM EST active [place] eCW1 ([facility]) Pen [place] 31G X 5 MM [place] 31G X 5 MM 05/13/2020 12:00:[address] active [place] 31G X 5 MM eC W1 ([facility]) [place] UNK 05/13/2020 12:00:00 AM EST active [place] eCW1 ([facility]) [place] UNK 05/13/2020 12:00:00 AM EST active [place] eCW1 ([facility]) Tresiba FlexTouch 200 UNIT/ML Tresiba FlexTouch 200 UNIT/ML 05/13/2020 12:00:00 AM EST active Tresiba FlexTouch 200 UNIT/ML eCW1 ([facility]) [place] 31G X 6 MM [place] 31G X 6 MM 05/13/2020 12:00:[address] active [place] 31G X 6 MM eC W1 ([facility]) [place] 31G X 6 MM [place] 31G X 6 MM 05/13/2020 12:00:[address] active [place] 31G X 6 MM eC W1 ([facility]) [place] UNK 05/13/2020 12:00:00 AM EST active [place] eCW1 ([facility]) [place] 31G X 6 MM [place] 31G X 6 MM 05/13/2020 12:00:[address] active [place] 31G X 6 MM eC W1 ([facility]) [place] UNK 05/13/2020 12:00:00 AM EST active [place] eCW1 ([facility]) Tresiba FlexTouch 200 UNIT/ML Tresiba FlexTouch 200 UNIT/ML 05/13/2020 12:00:00 AM EST active Tresiba FlexTouch 200 UNIT/ML eCW1 ([facility]) [place] UNK 05/13/2020 12:00:00 AM EST active [place] eCW1 ([facility]) Tresiba FlexTouch 200 UNIT/ML Tresiba FlexTouch 200 UNIT/ML 05/13/2020 12:00:00 AM EST active Tresiba FlexTouch 200 UNIT/ML eCW1 ([facility]) [place] UNK 05/13/2020 12:00:00 AM EST active [place] eCW1 ([facility]) [place] UNK 05/13/2020 12:00:00 AM EST active [place] eCW1 ([facility]) [place] 31G X 6 MM [place] 31G X 6 MM 05/13/2020 12:00:[address] active [place] 31G X 6 MM eC W1 ([facility]) [place] UNK 05/13/2020 12:00:00 AM EST active [place] eCW1 ([facility]) [place] UNK 05/13/2020 12:00:00 AM EST active [place] eCW1 ([facility]) Tresiba FlexTouch 200 UNIT/ML Tresiba FlexTouch 200 UNIT/ML 05/13/2020 12:00:00 AM EST active Tresiba FlexTouch 200 UNIT/ML eCW1 ([facility]) [place] UNK 05/13/2020 12:00:00 AM EST active [place] eCW1 ([facility]) [place] UNK 05/13/2020 12:00:00 AM EST active [place] eCW1 ([facility]) [place] UNK 05/13/2020 12:00:00 AM EST active [place] eCW1 ([facility]) Tresiba FlexTouch 200 UNIT/ML [employer] FlexTouch 200 UNIT/ML 05/13/2020 12:00:00 AM EST active [employer] FlexTouch 200 UNIT/ML eCW1 ([facility]) [employer] FlexTouch 200 UNIT/ML [employer] 200 UNIT/ML 05/13/2020 12:00:00 AM EST active [employer] FlexTouch 200 UNIT/ML eCW1 ([facility]) [employer] FlexTouch 200 UNIT/ML [employer] 200 UNIT/ML 05/13/2020 12:00:00 AM EST active [employer] FlexTouch 200 UNIT/ML eCW1 ([facility]) [place] 31G X 6 MM [place] 31G X 6 MM 05/13/2020 12:00:[address] active [place] 31G X 6 MM eC W1 ([facility]) [place] UNK 05/13/2020 12:00:00 AM EST active [place] eCW1 ([facility]) [place] UNK 05/13/2020 12:00:00 AM EST active [place] eCW1 ([facility]) [employer] FlexTouch 200 UNIT/ML [employer] FlexTouch 200 UNIT/ML 05/13/2020 12:00:00 AM EST active [employer] FlexTouch 200 UNIT/ML eCW1 ([facility]) [employer] FlexTouch 200 UNIT/ML [employer] Flex[employer] 200 UNIT/ML 05/13/2020 12:00:00 AM EST active [employer] FlexTouch 200 UNIT/ML eCW1 ([facility]) [place] UNK 05/13/2020 12:00:00 AM EST active [place] eCW1 ([facility]) [place] UNK 05/13/2020 12:00:00 AM EST active [place] eCW1 ([facility]) [employer] FlexTouch 200 UNIT/ML [employer] Flex[employer] 200 UNIT/ML 05/13/2020 12:00:00 AM EST active [employer] FlexTouch 200 UNIT/ML eCW1 ([facility]) 31 gauge x 3/16" 05/13/2020 12:00:00 AM EST needle 30 USE DIRECTED ONCE DAILY USE DIRECTED ONCE DAILY SOLD: 06/16/2020 [facility] [employer] FlexTouch 200 UNIT/ML [employer] FlexTouch 200 UNIT/ML 05/13/2020 12:00:00 AM EST active [employer] FlexTouch 200 UNIT/ML eCW1 ([facility]) [place] UNK 05/13/2020 12:00:00 AM EST active [place] eCW1 ([facility]) [employer] FlexTouch 200 UNIT/ML [employer] 200 UNIT/ML 05/13/2020 12:00:00 AM EST active [employer] FlexTouch 200 UNIT/ML eCW1 ([facility]) [place] UNK 05/13/2020 12:00:00 AM EST active [place] eCW1 ([facility]) [employer] FlexTouch 200 UNIT/ML [employer] Flex[employer] 200 UNIT/ML 05/13/2020 12:00:00 AM EST active [employer] FlexTouch 200 UNIT/ML eCW1 ([facility]) [place] 31G X 6 MM [place] 31G X 6 MM 05/13/2020 12:00:[address] active [place] 31G X 6 MM eC W1 ([facility]) [place] UNK 05/13/2020 12:00:00 AM EST active [place] eCW1 ([facility]) [employer] FlexTouch 200 UNIT/ML [employer] FlexTouch 200 UNIT/ML 05/13/2020 12:00:00 AM EST active [employer] FlexTouch 200 UNIT/ML eCW1 ([facility]) [employer] FlexTouch 200 UNIT/ML [employer] 200 UNIT/ML 05/13/2020 12:00:00 AM EST active [employer] FlexTouch 200 UNIT/ML eCW1 ([facility]) [place] UNK 05/13/2020 12:00:00 AM EST active [place] eCW1 ([facility]) [place] UNK 05/13/2020 12:00:00 AM EST active [place] eCW1 ([facility]) [place] 31G X 5 MM [place] 31G X 5 MM 05/13/2020 12:00:[address] active [place] 31G X 5 MM eC W1 ([facility]) [employer] FlexTouch 200 UNIT/ML [employer] Flex[employer] 200 UNIT/ML 05/13/2020 12:00:00 AM EST active [employer] FlexTouch 200 UNIT/ML eCW1 ([facility]) [employer] FlexTouch 200 UNIT/ML [employer] Flex[employer] 200 UNIT/ML 05/13/2020 12:00:00 AM EST active [employer] FlexTouch 200 UNIT/ML eCW1 ([facility]) [employer] FlexTouch 200 UNIT/ML [employer] 200 UNIT/ML 05/13/2020 12:00:00 AM EST active [employer] FlexTouch 200 UNIT/ML eCW1 ([facility]) 31 gauge x 3/16" 05/13/2020 12:00:00 AM EST needle 30 USE DIRECTED ONCE DAILY USE DIRECTED ONCE DAILY SOLD: 05/17/2020 [facility] [employer] FlexTouch 200 UNIT/ML [employer] Flex[employer] 200 UNIT/ML 05/13/2020 12:00:00 AM EST active [employer] FlexTouch 200 UNIT/ML eCW1 ([facility]) [place] 31G X 5 MM [place] 31G X 5 MM 05/13/2020 12:00:[address] active [place] 31G X 5 MM eC W1 ([facility]) [employer] FlexTouch 200 UNIT/ML [employer] Flex[employer] 200 UNIT/ML 05/13/2020 12:00:00 AM EST active [employer] Flex[employer] 200 UNIT/ML eCW1 ([facility]) [place] 31G X 6 MM [place] 31G X 6 MM 05/13/2020 12:00:[address] active [place] 31G X 6 MM eC W1 ([facility]) [place] 31G X 5 MM [place] 31G X 5 MM 05/13/2020 12:00:[address] active [place] 31G X 5 MM eC W1 ([facility]) [employer] Flex[employer] 200 UNIT/ML [employer] Flex[employer] 200 UNIT/ML 05/13/2020 12:00:00 AM EST active [employer] FlexTouch 200 UNIT/ML eCW1 ([facility]) [employer] FlexTouch 200 UNIT/ML [employer] Flex[employer] 200 UNIT/ML 05/13/2020 12:00:00 AM EST active [employer] FlexTouch 200 UNIT/ML eCW1 ([facility]) [place] UNK 05/13/2020 12:00:00 AM EST active [place] eCW1 ([facility]) [place] UNK 05/13/2020 12:00:00 AM EST active [place] eCW1 ([facility]) [place] 31G X 5 MM [place] 31G X 5 MM 05/13/2020 12:00:[address] active [place] 31G X 5 MM eC W1 ([facility]) [employer] FlexTouch 200 UNIT/ML [employer] 200 UNIT/ML 05/13/2020 12:00:00 AM EST active [employer] Flex[employer] 200 UNIT/ML eCW1 ([facility]) [place] 31G X 6 MM [place] 31G X 6 MM 05/13/2020 12:00:[address] active [place] 31G X 6 MM eC W1 ([facility]) 31 gauge x 3/16" 05/13/2020 12:00:00 AM EST needle 30 USE DIRECTED ONCE DAILY USE DIRECTED ONCE DAILY SOLD: 08/15/2020 [facility] [place] UNK 05/13/2020 12:00:00 AM EST active [place] eCW1 ([facility]) [employer] FlexTouch 200 UNIT/ML [employer] Flex[employer] 200 UNIT/ML 05/13/2020 12:00:00 AM EST active [employer] Flex[employer] 200 UNIT/ML eCW1 ([facility]) [place] 31G X 6 MM [place] 31G X 6 MM 05/13/2020 12:00:[address] active [place] 31G X 6 MM eC W1 ([facility]) [employer] 200 UNIT/ML [employer] 200 UNIT/ML 05/13/2020 12:00:00 AM EST active [employer] Flex[employer] 200 UNIT/ML eCW1 ([facility]) [place] UNK 05/13/2020 12:00:00 AM EST active [place] eCW1 ([facility]) [place] UNK 05/13/2020 12:00:00 AM EST active [place] eCW1 ([facility]) [place] UNK 05/13/2020 12:00:00 AM EST active [place] eCW1 ([facility]) [employer] FlexTouch 200 UNIT/ML [employer] 200 UNIT/ML 05/13/2020 12:00:00 AM EST active [employer] FlexTouch 200 UNIT/ML eCW1 ([facility]) [employer] FlexTouch 200 UNIT/ML [employer] 200 UNIT/ML 05/13/2020 12:00:00 AM EST active [employer] FlexTouch 200 UNIT/ML eCW1 ([facility]) 31 gauge x 3/16" 05/13/2020 12:00:00 AM EST needle 30 USE DIRECTED ONCE DAILY USE DIRECTED ONCE DAILY SOLD: 07/16/2020 [facility] [place] UNK 05/13/2020 12:00:00 AM EST active [place] eCW1 ([facility]) [place] 31G X 6 MM [place] 31G X 6 MM 05/13/2020 12:00:[address] active [place] 31G X 6 MM eC W1 ([facility]) [place] 31G X 6 MM [place] 31G X 6 MM 05/13/2020 12:00:[address] active [place] 31G X 6 MM eC W1 ([facility]) [employer] Flex[employer] 200 UNIT/ML [employer] 200 UNIT/ML 05/13/2020 12:00:00 AM EST active [employer] Flex[employer] 200 UNIT/ML eCW1 ([facility]) [place] 31G X 5 MM [place] 31G X 5 MM 05/13/2020 12:00:[address] active [place] 31G X 5 MM eC W1 ([facility]) 20 mg 04/26/2020 12:00:00 AM EST tablet 80 TAKE ONE TABLET BY MOUTH EVERY MORNING TAKE ONE TABLET BY MOUTH EVERY MORNING SOLD: 05/10/2020 [facility] 20 mg 04/26/2020 12:00:00 AM EST tablet 10 TAKE ONE TABLET BY MOUTH EVERY MORNING TAKE ONE TABLET BY MOUTH EVERY MORNING SOLD: 04/28/2020 [facility] LANCETS 03/14/2020 12:00:00 AM EST misc 180 TEST TWO TIMES A DAY BEFORE MEALS TEST TWO TIMES A DAY BEFORE MEALS SOLD: 06/12/2020 [facility] glimepiride 4 MG Oral Tablet GLIMEPIRIDE 03/14/2020 12:00:00 AM EST t ablet 180 TAKE ONE TABLET BY MOUTH TWICE A DAY BEFORE MEALS TAKE ONE TABLET BY MOUTH TWICE A DAY BEFORE MEALS SOLD: 06/12/2020 [facility] 500 mg 03/14/2020 12:00:00 AM EST tablet extended release 24 hr 180 TAKE ONE TABLET BY MOUTH TWICE A DAY BEFORE MEALS TAKE ONE TABLET BY MOUTH TWICE A DAY BEFORE MEALS SOLD: 03/14/2020 [facility] LANCETS 03/14/2020 12:00:00 AM EST [...] TWICE A DAY BEFORE MEALS SOLD: 03/14/2020 [facility] 500 mg 03/04/2020 12:00:00 AM EST [...] BY MOUTH DIRECTED SOLD: 06/02/2020 [facility] glimepiride 2 MG Oral Tablet GLIMEPIRIDE 02/26/2020 12:00:00 AM EDT t ablet 360 TAKE TWO TABLETS BY MOUTH TWICE A DAY BEFORE MEALS GILL E TWO TABLETS BY MOUTH TWICE A DAY BEFORE MEALS SOLD: 02/27/2020 [facility] Rosuvastatin calcium 20 MG Oral Tablet ROSUVASTATIN CALCIUM 02/26/2020 12:00:00 AM EDT tablet 90 TAKE ONE TABLET BY MOUTH MITRA DAY TAKE ONE TABLET BY MOUTH EVERY DAY SOLD: 02/27/2020 [facility] Rosuvastatin calcium 20 MG Oral Tablet ROSUVASTATIN CALCIUM 02/26/2020 12:00:00 AM EDT tablet 90 TAKE ONE TABLET BY MOUTH MITRA RY DAY TAKE ONE TABLET BY MOUTH EVERY DAY SOLD: 05/26/2020 [facility] 20 mg 02/26/2020 12:00:00 AM EDT tablet 90 TAKE ONE TABLET BY MOUTH EVERY MORNING TAKE ONE TABLET BY MOUTH EVERY MORNING SOLD: 02/27/2020 [facility] 5 mg 02/26/2020 12:00:00 AM EDT tablet [...] {tablet} active Torsemide 2 0 MG eCW1 ([facility]) torsemide 10 MG Oral Tablet Torsemide 10 MG Torsemide 10 MG 02/17/2020 12:00:00 AM EDT 1.0 {tablet} active Torsemide 1 0 MG eCW1 ([facility]) torsemide 20 MG Oral Tablet Torsemide 20 MG Torsemide 20 MG 02/17/2020 12:00:00 AM EDT 1.0 {tablet} active Torsemide 2 0 MG eCW1 ([facility]) torsemide 10 MG Oral Tablet Torsemide 10 MG Torsemide 10 MG 02/17/2020 12:00:00 AM EDT 1.0 {tablet} active Torsemide 1 0 MG eCW1 ([facility]) torsemide 20 MG Oral Tablet Torsemide 20 MG Torsemide 20 MG 02/17/2020 12:00:00 AM EDT 1.0 {tablet} active Torsemide 2 0 MG eCW1 ([facility]) torsemide 10 MG Oral Tablet Torsemide 10 MG Torsemide 10 MG 02/17/2020 12:00:00 AM EDT 1.0 {tablet} active Torsemide 1 0 MG eCW1 ([facility]) 10 mg 02/17/2020 12:00:00 AM EDT tablet 30 TAKE ONE TABLET BY MOUTH EVERY DAY TAKE ONE TABLET BY MOUTH EVERY DAY SOLD: 02/17/2020 [facility] torsemide 10 MG Oral Tablet Torsemide 10 MG Torsemide 10 MG 02/17/2020 12:00:00 AM EDT 1.0 {tablet} active Torsemide 1 0 MG eCW1 ([facility]) torsemide 10 MG Oral Tablet Torsemide 10 MG Torsemide 10 MG 02/17/2020 12:00:00 AM EDT 1.0 {tablet} active Torsemide 1 0 MG eCW1 ([facility]) torsemide 10 MG Oral Tablet Torsemide 10 MG Torsemide 10 MG 02/17/2020 12:00:00 AM EDT 1.0 {tablet} active Torsemide 1 0 MG eCW1 ([facility]) 500 mg 02/06/2020 12:00:00 AM EDT tablet extended release 24 hr 30 TAKE 1 TABLET ONCE DAILY WITH EVENING MEAL TAKE 1 TABLET ONCE DAILY WITH EVENING MEAL SOLD: 02/08/2020 [facility] MetFORMIN HCl ER 500 MG MetFORMIN HCl ER 500 MG 02/03/2020 12:00:00 AM EDT 1.0 {tablet_with_evening_meal} active MetF ORMIN HCl ER 500 MG eCW1 ([facility]) MetFORMIN HCl ER 500 MG MetFORMIN HCl ER 500 MG 02/03/2020 12:00:00 AM EDT 1.0 {tablet_with_evening_meal} active MetF ORMIN HCl ER 500 MG eCW1 ([facility]) MetFORMIN HCl ER 500 MG MetFORMIN HCl ER 500 MG 02/03/2020 12:00:00 AM EDT 1.0 {tablet_with_evening_meal} active MetF ORMIN HCl ER 500 MG eCW1 ([facility]) MetFORMIN HCl ER 500 MG MetFORMIN HCl ER 500 MG 02/03/2020 12:00:00 AM EDT 1.0 {tablet_with_evening_meal} active MetF ORMIN HCl ER 500 MG eCW1 ([facility]) MetFORMIN HCl ER 500 MG MetFORMIN HCl ER 500 MG 02/03/2020 12:00:00 AM EDT 1.0 {tablet_with_evening_meal} active MetF ORMIN HCl ER 500 MG eCW1 ([facility]) 24 HR Metformin hydrochloride 500 MG Ext ended Release Oral Tablet MetFORMIN HCl ER 500 MG MetFORMIN HCl ER 500 MG 02/03/2020 12:00:00 AM EDT 1.0 {tablet_with_evening_meal} active MetFO RMIN HCl ER 500 MG eCW1 ([facility]) BLOOD SUGAR DIAGNOSTIC 01/23/2020 12:00:00 AM EDT strip 100 USE TWO TIMES A DAY USE TWO TIMES A DAY SOLD: 06/24/2020 [facility] BLOOD SUGAR DIAGNOSTIC 01/23/2020 12:00:00 AM [...] BY MOUTH DAILY SOLD: 01/23/2020 [facility] 300 mg 01/21/2020 12:00:00 AM EDT tablet 90 TAKE ONE TABLET BY MOUTH DAILY TAKE ONE TABLET BY MOUTH DAILY SOLD: 04/26/2020 [facility] LANCETS 10/06/2019 12:00:00 AM EDT misc 100 TEST ONCE DAILY TEST ONCE DAILY SOLD: 08/31/2020 [facility] 50 mcg/actuation 09/09/2019 12:00:00 AM EDT spray,suspension 48 SPRAY TWO SPRAYS IN EACH NOSTRIL EVERY MORNING SPRAY TWO SPRAYS IN EACH NOSTRIL EVERY MORNING SOLD: 05/03/2020 [facility] Insurance Providers Payer name Policy type / Coverage type Policy ID Covered democrat ID Covered democrat's relationship to katz Policy Katz Plan Information MEDICARE [id number] SP [id number] A MEDICARE [id number] SP [id number] A MEDICARE COMPLETE [id number] SP [id number] MEDICARE COMPLETE [id number] SP [id number] [employer] PROGRESSIVE [id number] SP [id number] TODAYS OPTIONS [id number] SP [id number] AMER PROG TODAYS OPTIONS [id number] Self [id number] AMER PROG TODAYS OPTIONS G [id number] Self [id number] [facility] [id number] SP [id number] [employer] [id number] Self [id number] [employer] Commercial Insurance Co. [id number] Nereyda f [id number] ANSI-Health Maintenance Organization (HM O) [id number] ANSI-Medicare Part B [id number] [facility] ( O) [id number] ANSI-Medicare Part B [id number] ANSI-Medicare Part B [id number] ANSI-Medicare Part B [id number] ANSI-Medicare Part B [id number] [facility]-Health Maintenance Organization ( O) [id number] ANSI-Health Maintenance Organization ( O) [id number] ANSI-Medicare Part B [id number] ANSI-Medicare Part B [id number] ANSI-Medicare Part B [id number] ANSI-Medicare Part B [id number] ANSI-Health Maintenance Organization ( O) [id number] ANSI-Medicare Part B [id number] ANSI-Medicare Part B [id number] [facility] ( O) [id number] ANSI-Medicare Part B [id number] ANSI-Health Maintenance Organization ( O) [id number] ANSI-Medicare Part B [id number] ANSI-Medicare Part B [id number] ANSI-Health Maintenance Organization ( O) [id number] ANSI-Medicare Part B [id number] TODAYS OPTIONS [id number] SP [id number] ANSI-Medicare Part B [id number] ANSI-Medicare Part B [id number] ANSI-Medicare Part B [id number] ANSI-Medicare Part B [id number] ANSI-Medicare Part B [id number] ANSI-Medicare Part B [id number] ANSI-Medicare Part B [id number] ANSI-Medicare Part B [id number] ANSI-Medicare Part B [id number] ANSI-Medicare Part B [id number] ANSI-Medicare Part B [id number] ANSI-Medicare Part B [id number] ANSI-Medicare Part B [id number] ANSI-Medicare Part B [id number] ANSI-Medicare Part B [id number] ANSI-Medicare Part B [id number] MEDICAID [id number] SP [id number] MEDICARE [id number] SP [id number] [facility] [id number] SP [id number] TODAYS OPTIONS/UGANDAN O [id number] S [id number] U[employer]AN PROGRESSIVE [id number] SP [id number] MEDICARE [id number] SP [id number] A MEDICARE COMPLETE [id number] SP [id number] [place] [id number] SP [id number] [employer] [id number] SP [id number] MEDICARE [id number] SP [id number] WELLCARE O [id number] S [id number] ANSI-Health Maintenance Organization ( O) [id number] ANSI-Medicare Part B [id number] ANSI-Medicare Part B [id number] ANSI-Medicare Part B [id number] ANSI-Medicare Part B [id number] ANSI-Health Maintenance Organization ( O) [id number] ANSI-Medicare Part B [id number] Problems, Conditions, and Diagnoses Code Display Name Description Problem Type Effective Dates Data Source(s) H90.3 [id number] Sensorineural hearing loss (SNHL) of both ears Problem 12/26/2020 12:00:00 AM EDT eCW1 ([facility]) L85.3 [id number] Xerosis cutis Problem 09/27/2020 12:00:00 AM EDT eCW1 ([facility]) D47.2 [id number] 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) Problem 09/27/2020 12:00:00 AM EDT eCW1 ([facility]) G47.33 20985950 Obstructive sleep apnea Problem 09/09/2020 1 2:00:00 AM EDT eCW1 ([facility]) G47.33 [id number] MIHIR (obstructive sleep apnea) Problem 08/23/2020 12:00:00 AM EDT eCW1 ([facility]) L97.421 [id number] Skin ulcer of left heel, limited to break down of skin Problem 07/11/2020 12:00:00 AM EDT eCW1 ([facility]) 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 Problem 07/11/2020 12:00:00 AM EDT eCW1 ([facility]) H04.123 [id number] Dry eyes, bilateral Problem 07/11/2020 12:00 :00 AM EDT eCW1 ([facility]) I63.9 [id number] Recurrent cerebrovascular accidents (CVAs ) Problem 07/11/2020 12:00:00 AM EDT eCW1 ([facility]) 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 infarction Problem 06/27/2020 12:00:00 AM EST NETSMART ([facility]) E11.51 Type 2 diabetes mellitus wit h diabetic peripheral angiopathy without gangrene Type 2 diabetes mellitus with diabetic p eripheral angiopathy without gangrene Problem 06/27/2020 12:00:00 AM EST NETSMART ([facility]) I70.201 Unspecified atherosclerosis of [place] arteries of extremities, right leg Unspecified atherosclerosis of [place] arteries of extr emities, right leg Problem 06/27/2020 12:00:00 AM EST NETSMART ([facility]) 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 Problem 06/27/2020 12:00:00 AM EST NETSMART ([facility]) 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 and stage 1 through stage 4 chronic kidney disease, or unspecified chronic kidney disease Hypertensive heart and chronic kidney di sease with heart failure and stage 1 through stage 4 chronic kidney disease, or unspecified chronic kidney disease Problem 06/27/2020 12:00:00 AM EST NETSMART ([facility]) I50.32 Chronic diastolic (congestive) heart s[place] Chronic diastolic (congestive) heart failure Problem 06/27/2020 12:00:00 AM EST NETSMA RT ([facility]) 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 Problem 06/27/2020 12:00:00 AM EST NETSMART ([facility] ) N18.30 Chronic kidney disease, stage 3 unspecif ied Chronic kidney disease, stage 3 unspecified Problem 06/27/2020 12:00:00 AM EST NETSMART ([facility]) D63.1 Anemia in chronic kidney disease Anemia in chronic kid daniel disease Problem 06/27/2020 12:00:00 AM EST NETSMART ([facility] ) 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, unspecifie d site Gout due to renal impairment, unspecified site Problem 06/27/2020 12:00:00 AM EST NETS MART ([facility]) 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, not intractable, without status epilepticus Localization-related (focal) (partial) s ymptomatic epilepsy and epileptic syndromes with simple partial seizures, not intractable, without status epilepticus Problem 06/27/2020 12:00:00 AM EST NETSMART ([facility]) M47.816 Spondylosis without myelopathy or radicu lopathy, lumbar region Spondylosis without myelopathy or radiculopathy, lumbar region Problem 06/27/2020 12:00:00 AM EST NETSMART ([facility] ) M19.90 Unspecified osteoarthritis, unspecified site Unspecified osteoarthritis, unspecified site Problem 06/27/2020 12:00:00 AM EST NETSMART ([facility]) E53.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 Deficiency of other specified B group vitamins Problem 06/27/2020 12:00:00 AM EST NETSMA RT ([facility]) D50.9 Iron deficiency anemia, unspecified Iron deficie ncy anemia, unspecified Problem 06/27/2020 12:00:00 AM EST NETSMART ([facility]) G47.33 Obstructive sleep apnea (adult) (pediatr ic) Obstructive sleep apnea (adult) (pediatric) Problem 06/27/2020 12:00:00 AM EST NETSMART ([facility]) E66.9 Obesity, unspecified Obesity, unspecified Problem 06/27/2020 12:00:00 AM EST NETSMART ([facility] ) Z87.891 Personal history of nicotine dependence Personal history of nicotine dependence Problem 06/27/2020 12:00:00 AM EST NETSMART ([facility]) 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 Problem 06/27/2020 12:00:00 AM EST NETSMART ([facility]) 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.82 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 custodial (cu rrent) use of aspirin Problem 06/27/2020 12:00:00 AM EST NETSMART ([facility]) Z79.01 aircraft 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 design engineer (current) use of anticoagulant s custodial (current) use of anticoagulants Problem 06/27/2020 12:00:00 AM EST NETSMART ([facility]) Z68.33 Body mass index [BMI] 33.0-33.9, adult B rhys mass index [BMI] 33.0-33.9, adult Problem 06/27/2020 12:00:00 AM EST NETSMART ([facility]) Z91.81 History of falling History of falling Problem 12:00:00 AM EST NETSMART ([facility]) Z85.46 Personal history of malignant neoplasm o f prostate Personal history of malignant neoplasm of prostate Problem 06/27/2020 12:00:00 AM EST NE MARITZA ([facility]) 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 Gerhard baljeet following cerebral infarction Problem 06/27/2020 12:00:00 AM EST SUDHAKARMART ([facility]) I69.398 Other sequelae of cerebral infarction Ot her sequelae of cerebral infarction Problem 06/23/2020 12:00:00 AM EST NETSMART ([facility]) I82.511 [id number] 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 Problem 03/14/2020 12:00:00 AM EST eCW1 ([facility]) L98.491 [id number] Superficial ulcer of skin Problem 02/16/2020 12:00:00 AM EDT eCW1 ([facility]) Surgeries/Procedures Procedure Description Date Indications Data Source(s) OFFICE OUTPATIENT VISIT 15 MINUTES 02/01/2021 12:00:00 AM EDT MEDENT ([facility], ) OFFICE OUTPATIENT NEW 30 MINUTES 10/20/2020 12:00:00 A M EDT MEDENT ([facility], ) Results ID Date Data Source [id number] 07/27/2020 06:49:00 PM EDT [facility] Name Value Range Interpretation Code Description Data Nichole rce(s) Supporting Document(s) SARS-CoV-2 IgG Serum <0.20 AU/mL <1.00 [facility] A result less than 1.00 AU/mL is conside red to be negative. PositiveIgG antibody results are often present later in the infectious process(from 7 days onward). Results will be reported to government agenciesas required.The [employer] SARS-CoV-2 IgG CLIA assay has received EmergencyUse Authorization (EUA). We will continue to follow federal and staterequirements for COVID-19 reporting. This test was developed and itsperformance characteristics determined by [employer]. Ithas not been reviewed, cleared or approved by the U.S. Food and DrugAdministration (FDA) but has been given e mergency use authorization.This test is used for clinical purposes. It should not be regarded asinvestigational or for research. Results should be used in conjunctionwith clinical findings and should not form the sole basis for adiagnosis or treatment decision. Methods: SARS-CoV-2 IgG:Chemiluminescent Immunoassay. ID Date Data Source [id number] 06/22/2020 06:37:00 AM EST [facility] Name Value Range Interpretation Code Description Data Nichole rce(s) Supporting Document(s) SARS coronavirus 2 RNA [Presence] in Res piratory specimen by CHRISTI with probe detection NEGATIVE [facility] This lab was ordered by [facility] a nd reported by [facility]. ID Date Data Source VITAMIN B12 LEVEL 06/17/2020 12:00:00 AM EST eCW1 ([facility]) Name Value Range Interpretation Code Description Data Nichole rce(s) Supporting Document(s) [id number] VITAMIN B12 LEVEL eCW1 ([facility]) ID Date Data Source PSA MONITOR (HX PROSTATE CA/ABNORMAL PSA) 06/17/2020 12:00:0 0 AM EST eCW1 ([facility]) Name Value Range Interpretation Code Description Data Nichole rce(s) Supporting Document(s) 18.70 < 4.00 PROSTATIC SPECIFIC AG MON ITOR eCW1 ([facility]) ID Date Data Source Comprehensive Metabolic Profile (CMP) 06/17/2020 12:00:00 AM EST eCW1 ([facility]) Name Value Range Interpretation Code Description Data Nichole rce(s) Supporting Document(s) 22 7-18 BLOOD UREA NITROGEN eCW1 ([facility]) 119 70-100 GLUCOSE, FASTING eCW1 ([facility]) 142 136-145 SODIUM LEVEL eCW1 ([facility]) > 60.0 >35 GLOMERULAR FILTRATION RATE eCW 1 ([facility]) 4.2 3.5-5.1 POTASSIUM SERUM eCW1 ([facility]) 0.97 0.70-1.30 CREATININE FOR GFR eCW1 ([facility]) 102 98-107 CHLORIDE LEVEL eCW1 ([facility]) 10 7-37 AST/SGOT eCW1 ([facility]) 9.5 8.8-10.2 CALCIUM LEVEL eCW1 ([facility]) 35 21-32 CARBON DIOXIDE LEVEL eCW1 ([facility]) 21 12-78 ALT/SGPT eCW1 ([facility]) 0.4 0.2-1.0 BILIRUBIN,TOTAL eCW1 ([facility]) 6.6 6.4-8.2 TOTAL PROTEIN eCW1 ([facility]) 67 45-117 ALKALINE PHOSPHATASE eCW1 ([facility]) 3.3 3.2-5.2 ALBUMIN eCW1 ([facility]) 1.0 ALBUMIN/GLOBULIN RATIO eCW1 ([facility]) ID Date Data Source URIC ACID 06/17/2020 12:00:00 AM EST eCW1 ([facility]) Name Value Range Interpretation Code Description Data Nichole rce(s) Supporting Document(s) 4.3 3.5-7.2 URIC ACID eCW1 ([facility]) ID Date Data Source MAGNESIUM LEVEL 06/17/2020 12:00:00 AM EST eCW1 ([facility]) Name Value Range Interpretation Code Description Data Nichole rce(s) Supporting Document(s) 1.9 1.8-2.4 MAGNESIUM LEVEL eCW1 ([facility]) ID Date Data Source [id number] 06/17/2020 12:00:00 AM EST eCW1 ([facility]) Name Value Range Interpretation Code Description Data Nichole rce(s) Supporting Document(s) Hemoglobin A1c/Hemoglobin.total in Blood 6.9 HEMOGLOBIN A1c eCW1 ([facility]) ID Date Data Source NT-PRO BNP 06/17/2020 12:00:00 AM EST eCW1 ([facility]) Name Value Range Interpretation Code Description Data Nichole rce(s) Supporting Document(s) 361 <450 NT-PRO BNP eCW1 ([facility]) Procedure Social History Code Duration Value Status Description Data Source(s ) Smoking 12/26/2020 12:00:00 AM EDT Former Smoker completed Former Smoker eCW1 ([facility]) Smoking 12/26/2020 12:00:00 AM EDT Former Smoker completed Former Smoker eCW1 ([facility]) Smoking 12/26/2020 12:00:00 AM EDT Former Smoker completed Former Smoker eCW1 ([facility]) Smoking 12/26/2020 12:00:00 AM EDT Former Smoker completed Former Smoker eCW1 ([facility]) Smoking 12/26/2020 12:00:00 AM EDT Former Smoker completed Former Smoker eCW1 ([facility]) Smoking 12/26/2020 12:00:00 AM EDT Former Smoker completed Former Smoker eCW1 ([facility]) Smoking 12/26/2020 12:00:00 AM EDT Former Smoker completed Former Smoker eCW1 ([facility]) Smoking 12/26/2020 12:00:00 AM EDT Former Smoker completed Former Smoker eCW1 ([facility]) Smoking 12/26/2020 12:00:00 AM EDT Former Smoker completed Former Smoker eCW1 ([facility]) Smoking 12/26/2020 12:00:00 AM EDT Former Smoker completed Former Smoker eCW1 ([facility]) Smoking 12/26/2020 12:00:00 AM EDT Former Smoker completed Former Smoker eCW1 ([facility]) Smoking 12/26/2020 12:00:00 AM EDT Former Smoker completed Former Smoker eCW1 ([facility]) Smoking 12/26/2020 12:00:00 AM EDT Former Smoker completed Former Smoker eCW1 ([facility]) Smoking 09/27/2020 12:00:00 AM EDT Former Smoker completed Former Smoker eCW1 ([facility]) Smoking 09/27/2020 12:00:00 AM EDT Former Smoker completed Former Smoker eCW1 ([facility]) Smoking 09/27/2020 12:00:00 AM EDT Former Smoker completed Former Smoker eCW1 ([facility]) Smoking 09/27/2020 12:00:00 AM EDT Former Smoker completed Former Smoker eCW1 ([facility]) Smoking 09/27/2020 12:00:00 AM EDT Former Smoker completed Former Smoker eCW1 ([facility]) Smoking 09/27/2020 12:00:00 AM EDT Former Smoker completed Former Smoker eCW1 ([facility]) Smoking 09/27/2020 12:00:00 AM EDT Former Smoker completed Former Smoker eCW1 ([facility]) Smoking 09/27/2020 12:00:00 AM EDT Former Smoker completed Former Smoker eCW1 ([facility]) Smoking 09/09/2020 12:00:00 AM EDT Former Smoker completed Former Smoker eCW1 ([facility]) Smoking 09/09/2020 12:00:00 AM EDT Former Smoker completed Former Smoker eCW1 ([facility]) Smoking 09/09/2020 12:00:00 AM EDT Former Smoker completed Former Smoker eCW1 ([facility]) Smoking 08/23/2020 12:00:00 AM EDT Former Smoker completed Former Smoker eCW1 ([facility]) Smoking 08/23/2020 12:00:00 AM EDT Former Smoker completed Former Smoker eCW1 ([facility]) Smoking 08/23/2020 12:00:00 AM EDT Former Smoker completed Former Smoker eCW1 ([facility]) Smoking 08/23/2020 12:00:00 AM EDT Former Smoker completed Former Smoker eCW1 ([facility]) Smoking 08/23/2020 12:00:00 AM EDT Former Smoker completed Former Smoker eCW1 ([facility]) Smoking 08/23/2020 12:00:00 AM EDT Former Smoker completed Former Smoker eCW1 ([facility]) Smoking 07/11/2020 12:00:00 AM EDT Former Smoker completed Former Smoker eCW1 ([facility]) Smoking 07/11/2020 12:00:00 AM EDT Former Smoker completed Former Smoker eCW1 ([facility]) Smoking 06/30/2020 12:00:00 AM EST Former Smoker completed Former Smoker eCW1 ([facility]) Smoking 06/30/2020 12:00:00 AM EST Former Smoker completed Former Smoker eCW1 ([facility]) Smoking 06/30/2020 12:00:00 AM EST Former Smoker completed Former Smoker eCW1 ([facility]) Smoking 06/30/2020 12:00:00 AM EST Former Smoker completed Former Smoker eCW1 ([facility]) Smoking 06/30/2020 12:00:00 AM EST Former Smoker completed Former Smoker eCW1 ([facility]) Smoking 06/14/2020 12:00:00 AM EST Former Smoker completed Former Smoker eCW1 ([facility]) Smoking 06/14/2020 12:00:00 AM EST Former Smoker completed Former Smoker eCW1 ([facility]) Smoking 06/14/2020 12:00:00 AM EST Former Smoker completed Former Smoker eCW1 ([facility]) Smoking 06/14/2020 12:00:00 AM EST Former Smoker completed Former Smoker eCW1 ([facility]) Smoking 06/14/2020 12:00:00 AM EST Former Smoker completed Former Smoker eCW1 ([facility]) Smoking 06/14/2020 12:00:00 AM EST Former Smoker completed Former Smoker eCW1 ([facility]) Smoking 06/14/2020 12:00:00 AM EST Former Smoker completed Former Smoker eCW1 ([facility]) Smoking 06/02/2020 12:00:00 AM EST Former Smoker completed Former Smoker eCW1 ([facility]) Smoking 03/14/2020 12:00:00 AM EST Former Smoker completed Former Smoker eCW1 ([facility]) Smoking 03/14/2020 12:00:00 AM EST Former Smoker completed Former Smoker eCW1 ([facility]) Smoking 03/14/2020 12:00:00 AM EST Former Smoker completed Former Smoker eCW1 ([facility]) Smoking 03/14/2020 12:00:00 AM EST Former Smoker completed Former Smoker eCW1 ([facility]) Smoking 03/14/2020 12:00:00 AM EST Former Smoker completed Former Smoker eCW1 ([facility]) Smoking 03/14/2020 12:00:00 AM EST Former Smoker completed Former Smoker eCW1 ([facility]) Smoking 03/14/2020 12:00:00 AM EST Former Smoker completed Former Smoker eCW1 ([facility]) Smoking 03/14/2020 12:00:00 AM EST Former Smoker completed Former Smoker eCW1 ([facility]) Smoking 03/14/2020 12:00:00 AM EST Former Smoker completed Former Smoker eCW1 ([facility]) Smoking 03/14/2020 12:00:00 AM EST Former Smoker completed Former Smoker eCW1 ([facility]) Smoking 03/14/2020 12:00:00 AM EST Former Smoker completed Former Smoker eCW1 ([facility]) Smoking 03/03/2020 12:00:00 AM EST Former Smoker completed Former Smoker eCW1 ([facility]) Smoking 03/03/2020 12:00:00 AM EST Former Smoker completed Former Smoker eCW1 ([facility]) Smoking 03/03/2020 12:00:00 AM EST Former Smoker completed Former Smoker eCW1 ([facility]) Smoking 03/03/2020 12:00:00 AM EST Former Smoker completed Former Smoker eCW1 ([facility]) Smoking 03/03/2020 12:00:00 AM EST Former Smoker completed Former Smoker eCW1 ([facility]) Smoking 03/02/2020 12:00:00 AM EST Former Smoker completed Former Smoker eCW1 ([facility]) Smoking 02/16/2020 12:00:00 AM EDT Former Smoker completed Former Smoker eCW1 ([facility]) Smoking 02/16/2020 12:00:00 AM EDT Former Smoker completed Former Smoker eCW1 ([facility]) Smoking 02/16/2020 12:00:00 AM EDT Former Smoker completed Former Smoker eCW1 ([facility]) Vital Signs ID Date Data Source UNK Name Value Range Interpretation Code Description Data Source(s) Oxygen saturation in Arterial blood by Pulse oximetry 94 % 94 % PADMINI ([facility], ) Body height 69 [in_i] 69 [in_i] PADMINI ([facility]) 5'9" Body weight 115.668 kg 115.668 kg [facility] ([facility]) Body surface area Derived from formula 2.29 m2 2.29 m2 [facility] ([facility]) Body weight 255.00 [lb_av] 255.00 [lb_av] MEDEN T ([facility]) Body mass index (BMI) [Ratio] 37.7 kg/m2 37.7 k g/m2 [facility] ([facility]) [place] body weight 160 [lb_av] 160 [lb_av] MEDEN T ([facility]) Systolic blood pressure 130 mm[Hg] 130 mm[Hg] M EDENT ([facility]) Diastolic blood pressure 70 mm[Hg] 70 mm[Hg] [facility] ([facility]) Heart rate 80 /min 80 /min [facility] ([facility]) Systolic blood pressure 128 mm[Hg] 128 mm[Hg] e CW1 ([facility]) Body weight 253.6 [lb_av] 253.6 [lb_av] eCW1 ([facility]) Body weight 115.03 kg 115.03 kg eCW1 ([facility]) Body height 73 [in_i] 73 [in_i] eCW1 ([facility]) Body temperature 97.8 [degF] 97.8 [degF] eCW1 ( [facility]) Body mass index (BMI) [Ratio] 33.45 kg/m2 33.45 kg/m2 eCW1 ([facility]) Diastolic blood pressure 74 mm[Hg] 74 mm[Hg] eCW1 ([facility]) Heart rate 106 /min 106 /min eCW1 ([facility]) Respiratory rate 18 /min 18 /min eCW1 ([facility]) Body weight 253.6 [lb_av] 253.6 [lb_av] eCW1 ([facility]) Diastolic blood pressure 74 mm[Hg] 74 mm[Hg] eCW1 ([facility]) Body weight 115.03 kg 115.03 kg eCW1 ([facility]) Body height 73 [in_i] 73 [in_i] eCW1 ([facility]) Body mass index (BMI) [Ratio] 33.45 kg/m2 33.45 kg/m2 eCW1 ([facility]) Heart rate 106 /min 106 /min eCW1 ([facility]) Respiratory rate 18 /min 18 /min eCW1 ([facility]) Body temperature 97.8 [degF] 97.8 [degF] eCW1 ( [facility]) Systolic blood pressure 128 mm[Hg] 128 mm[Hg] e CW1 ([facility]) [place] body weight 160 [lb_av] 160 [lb_av] MEDEN T ([facility], ) Body mass index (BMI) [Ratio] 37.2 kg/m2 37.2 k g/m2 [facility] ([facility], ) Systolic blood pressure 130 mm[Hg] 130 mm[Hg] M EDENT ([facility], ) Oxygen saturation in Arterial blood by Pulse oximetry 94 % 94 % [facility] ([facility], ) Body height 69 [in_i] 69 [in_i] [facility] ([facility]) 5'9" Body weight 252.00 [lb_av] 252.00 [lb_av] MEDEN T ([facility]) Diastolic blood pressure 70 mm[Hg] 70 mm[Hg] MEDENT ([facility]) Heart rate 114 /min 114 /min [facility] ([facility]) Oxygen saturation in Arterial blood by Pulse oximetry 94 % 94 % [facility] ([facility]) Body height 69 [in_i] 69 [in_i] [facility] ([facility]) 5'9" Body weight 252.00 [lb_av] 252.00 [lb_av] MEDEN T ([facility]) Body mass index (BMI) [Ratio] 37.2 kg/m2 37.2 k g/m2 [facility] ([facility], ) [place] body weight 160 [lb_av] 160 [lb_av] MEDEN T ([facility]) Body weight 114.307 kg 114.307 kg MEDENT ([facility]) Body surface area [facility] 2.28 [facility] 2.28 [facility] Body weight 114.307 kg 114.307 kg [facility]) Body surface area Derived from formula 2.28 m2 2.28 m2 [facility]) Body weight 254 [lb_av] 254 [lb_av] eCW1 ([facility]) Body height 73 [in_i] 73 [in_i] eCW1 ([facility]) Body mass index (BMI) [Ratio] 33.51 kg/m2 33.51 kg/m2 eCW1 ([facility]) Heart rate 87 /min 87 /min eCW1 ([facility]) Respiratory rate 18 /min 18 /min eCW1 ([facility]) Systolic blood pressure 134 mm[Hg] 134 mm[Hg] e CW1 ([facility]) Diastolic blood pressure 84 mm[Hg] 84 mm[Hg] eCW1 ([facility]) Body weight 253 [lb_av] 253 [lb_av] eCW1 ([facility]) Body height 73 [in_i] 73 [in_i] eCW1 ([facility]) Body mass index (BMI) [Ratio] 33.38 kg/m2 33.38 kg/m2 eCW1 ([facility]) Systolic blood pressure 114 mm[Hg] 114 mm[Hg] e CW1 ([facility]) Diastolic blood pressure 72 mm[Hg] 72 mm[Hg] eCW1 ([facility]) Heart rate 107 /min 107 /min eCW1 ([facility]) Respiratory rate 18 /min 18 /min eCW1 ([facility]) Body temperature 97.4 [degF] 97.4 [degF] eCW1 ( [facility]) Body weight 255.8 [lb_av] 255.8 [lb_av] eCW1 ([facility]) Body height 73 [in_i] 73 [in_i] eCW1 ([facility]) Body mass index (BMI) [Ratio] 33.75 kg/m2 33.75 kg/m2 eCW1 ([facility]) Heart rate 107 /min 107 /min eCW1 ([facility]) Respiratory rate 18 /min 18 /min eCW1 ([facility]) Body temperature 98 [degF] 98 [degF] eCW1 ([facility]) Systolic blood pressure 112 mm[Hg] 112 mm[Hg] e CW1 ([facility]) Diastolic blood pressure 70 mm[Hg] 70 mm[Hg] eCW1 ([facility]) Body weight 249.0 [lb_av] 249.0 [lb_av] eCW1 ([facility]) Body height 73 [in_i] 73 [in_i] eCW1 ([facility]) Body mass index (BMI) [Ratio] 32.85 kg/m2 32.85 kg/m2 eCW1 ([facility]) Heart rate 101 /min 101 /min eCW1 ([facility]) Respiratory rate 18 /min 18 /min eCW1 ([facility]) Body temperature 97.6 [degF] 97.6 [degF] eCW1 ( [facility]) Systolic blood pressure 122 mm[Hg] 122 mm[Hg] e CW1 ([facility]) Diastolic blood pressure 78 mm[Hg] 78 mm[Hg] eCW1 ([facility]) Body weight 243.12 [lb_av] 243.12 [lb_av] eCW1 ([facility]) Body height 73 [in_i] 73 [in_i] eCW1 ([facility]) Body mass index (BMI) [Ratio] 32.07 kg/m2 32.07 kg/m2 eCW1 ([facility]) Heart rate 102 /min 102 /min eCW1 ([facility]) Respiratory rate 18 /min 18 /min eCW1 ([facility]) Body temperature 97.7 [degF] 97.7 [degF] eCW1 ( [facility]) Systolic blood pressure 128 mm[Hg] 128 mm[Hg] e CW1 ([facility]) Diastolic blood pressure 80 mm[Hg] 80 mm[Hg] eCW1 ([facility]) Heart rate 118 /min 118 /min eCW1 ([facility]) Body weight 255 [lb_av] 255 [lb_av] eCW1 ([facility]) Body height 73 [in_i] 73 [in_i] eCW1 ([facility]) Systolic blood pressure 138 mm[Hg] 138 mm[Hg] e CW1 ([facility]) Body mass index (BMI) [Ratio] 33.64 kg/m2 33.64 kg/m2 eCW1 ([facility]) Respiratory rate 18 /min 18 /min eCW1 ([facility]) Body temperature 97.2 [degF] 97.2 [degF] eCW1 ( [facility]) Diastolic blood pressure 80 mm[Hg] 80 mm[Hg] eCW1 ([facility]) Body weight 254 [lb_av] 254 [lb_av] eCW1 ([facility]) Body height 73 [in_i] 73 [in_i] eCW1 ([facility]) Body mass index (BMI) [Ratio] 33.51 kg/m2 33.51 kg/m2 eCW1 ([facility]) Heart rate 119 /min 119 /min eCW1 ([facility]) Respiratory rate 20 /min 20 /min eCW1 ([facility]) Body temperature 97.1 [degF] 97.1 [degF] eCW1 ( [facility]) Systolic blood pressure 120 mm[Hg] 120 mm[Hg] e CW1 ([facility]) Diastolic blood pressure 80 mm[Hg] 80 mm[Hg] eCW1 ([facility]) Body temperature 96.8 [degF] 96.8 [degF] eCW1 ( [facility]) Body weight 259.4 [lb_av] 259.4 [lb_av] eCW1 ([facility]) Body height 73 [in_i] 73 [in_i] eCW1 ([facility]) Body mass index (BMI) [Ratio] 34.22 kg/m2 34.22 kg/m2 eCW1 ([facility]) Heart rate 95 /min 95 /min eCW1 ([facility]) Systolic blood pressure 138 mm[Hg] 138 mm[Hg] e CW1 ([facility]) Diastolic blood pressure 82 mm[Hg] 82 mm[Hg] eCW1 ([facility]) Respiratory rate 18 /min 18 /min eCW1 ([facility]) Body weight 259.4 [lb_av] 259.4 [lb_av] eCW1 ([facility]) Body height 73 [in_i] 73 [in_i] eCW1 ([facility]) Body mass index (BMI) [Ratio] 34.22 kg/m2 34.22 kg/m2 eCW1 ([facility]) Heart rate 95 /min 95 /min eCW1 ([facility]) Respiratory rate 18 /min 18 /min eCW1 ([facility]) Body temperature 96.8 [degF] 96.8 [degF] eCW1 ( [facility]) Systolic blood pressure 138 mm[Hg] 138 mm[Hg] e CW1 ([facility]) Diastolic blood pressure 82 mm[Hg] 82 mm[Hg] eCW1 ([facility]) Body weight 264 [lb_av] 264 [lb_av] eCW1 ([facility]) Body temperature 97.7 [degF] 97.7 [degF] eCW1 ( [facility]) Systolic blood pressure 132 mm[Hg] 132 mm[Hg] e CW1 ([facility]) Diastolic blood pressure 88 mm[Hg] 88 mm[Hg] eCW1 ([facility]) Body height 73 [in_i] 73 [in_i] eCW1 ([facility]) Body mass index (BMI) [Ratio] 34.83 kg/m2 34.83 kg/m2 eCW1 ([facility]) Heart rate 96 /min 96 /min eCW1 ([facility]) Respiratory rate 22 /min 22 /min eCW1 ([facility]) Body weight 260 [lb_av] 260 [lb_av] eCW1 ([facility]) Body height 73 [in_i] 73 [in_i] eCW1 ([facility]) Body mass index (BMI) [Ratio] 34.30 kg/m2 34.30 kg/m2 eCW1 ([facility]) Heart rate 91 /min 91 /min eCW1 ([facility]) Respiratory rate 18 /min 18 /min eCW1 ([facility]) Body temperature 97.4 [degF] 97.4 [degF] eCW1 ( [facility]) Systolic blood pressure 138 mm[Hg] 138 mm[Hg] e CW1 ([facility]) Diastolic blood pressure 80 mm[Hg] 80 mm[Hg] eCW1 ([facility]) Body mass index (BMI) [Ratio] 32.98 kg/m2 32.98 kg/m2 W1 ([facility]) Body weight 250 [lb_av] 250 [lb_av] eCW1 ([facility]) Body height 73 [in_i] 73 [in_i] eCW1 ([facility]) Heart rate 91 /min 91 /min eCW1 ([facility]) Diastolic blood pressure 80 mm[Hg] 80 mm[Hg] eCW1 ([facility]) Respiratory rate 18 /min 18 /min eCW1 ([facility]) Body temperature 97.4 [degF] 97.4 [degF] eCW1 ( [facility]) Systolic blood pressure 138 mm[Hg] 138 mm[Hg] e CW1 ([facility]) Patient Treatment Plan of Care Planned Activity Planned Date Details Description Data Source (s) Jarad Schmidte 14 Day Sensor - 02/13/2021 12:00:00 AM EDT eCW1 ([facility]) FreeStyle Ghulam 14 Day Sensor - 02/13/2021 12:00:00 AM EDT eCW1 ([facility]) FreeStyle Ghulam 14 Day Sensor - 02/13/2021 12:00:00 AM EDT eCW1 ([facility]) FreeStyle Ghulam 14 Day Sensor - 02/13/2021 12:00:00 AM EDT eCW1 ([facility]) ammonium lactate 120 MG/ML Topical Cream 09/27/2020 12:00:00 AM EDT eCW1 ([facility]) ammonium lactate 120 MG/ML Topical Cream 09/27/2020 12:00:00 AM EDT eCW1 ([facility]) ammonium lactate 120 MG/ML Topical Cream 09/27/2020 12:00:00 AM EDT eCW1 ([facility]) ammonium lactate 120 MG/ML Topical Cream 09/27/2020 12:00:00 AM EDT eCW1 ([facility]) ammonium lactate 120 MG/ML Topical Cream 09/27/2020 12:00:00 AM EDT eCW1 ([facility]) ammonium lactate 120 MG/ML Topical Cream 09/27/2020 12:00:00 AM EDT eCW1 ([facility]) ammonium lactate 120 MG/ML Topical Cream 09/27/2020 12:00:00 AM EDT eCW1 ([facility]) ammonium lactate 120 MG/ML Topical Cream 09/27/2020 12:00:00 AM EDT eCW1 ([facility]) CPAP mask 09/12/2020 12:00:00 AM EDT e CW1 ([facility]) CPAP mask 09/12/2020 12:00:00 AM EDT e CW1 ([facility]) CPAP mask 09/12/2020 12:00:00 AM EDT e CW1 ([facility]) CPAP mask 09/12/2020 12:00:00 AM EDT e CW1 ([facility]) CPAP mask 09/12/2020 12:00:00 AM EDT e CW1 ([facility]) CPAP mask 09/12/2020 12:00:00 AM EDT e CW1 ([facility]) CPAP mask 09/12/2020 12:00:00 AM EDT e CW1 ([facility]) CPAP mask 09/12/2020 12:00:00 AM EDT e CW1 ([facility]) CPAP mask 09/12/2020 12:00:00 AM EDT e CW1 ([facility]) CPAP mask 09/12/2020 12:00:00 AM EDT e CW1 ([facility]) CPAP mask 09/12/2020 12:00:00 AM EDT e CW1 ([facility]) CPAP mask 09/12/2020 12:00:00 AM EDT e CW1 ([facility]) CPAP Machine 09/12/2020 12:00:00 AM EDT e CW1 ([facility]) CPAP Machine 09/12/2020 12:00:00 AM EDT e CW1 ([facility]) CPAP mask 09/12/2020 12:00:00 AM EDT e CW1 ([facility]) CPAP Machine 09/12/2020 12:00:00 AM EDT e CW1 ([facility]) CPAP mask 09/12/2020 12:00:00 AM EDT e CW1 ([facility]) Polyethylene Glycol 400 4 MG/ML / Propyl meliton glycol 3 MG/ML Ophthalmic Solution [Systane] 06/30/2020 12:00:00 AM EST eCW1 ([facility]) Optifoam Gentle Foam Dressings 06/30/2020 12:00:00 AM EST eCW1 ([facility]) Polyethylene Glycol 400 4 MG/ML / Propyl meliton glycol 3 MG/ML Ophthalmic Solution [Systane] 06/30/2020 12:00:00 AM EST eCW1 ([facility]) Optifoam Gentle Foam Dressings 06/30/2020 12:00:00 AM EST eCW1 ([facility]) Polyethylene Glycol 400 4 MG/ML / Propyl meliton glycol 3 MG/ML Ophthalmic Solution [Systane] 06/30/2020 12:00:00 AM EST eCW1 ([facility]) Optifoam Gentle Foam Dressings 06/30/2020 12:00:00 AM EST eCW1 ([facility]) Polyethylene Glycol 400 4 MG/ML / Propyl mleiton glycol 3 MG/ML Ophthalmic Solution [Systane] 06/30/2020 12:00:00 AM EST eCW1 ([facility]) Optifoam Gentle Foam Dressings 06/30/2020 12:00:00 AM EST eCW1 ([facility]) Polyethylene Glycol 400 4 MG/ML / Propyl meliton glycol 3 MG/ML Ophthalmic Solution [Systane] 06/30/2020 12:00:00 AM EST eCW1 ([facility]) Optifoam Gentle Foam Dressings 06/30/2020 12:00:00 AM EST eCW1 ([facility]) Polyethylene Glycol 400 4 MG/ML / Propyl meliton glycol 3 MG/ML Ophthalmic Solution [Systane] 06/30/2020 12:00:00 AM EST eCW1 ([facility]) Polyethylene Glycol 400 4 MG/ML / Propyl meliton glycol 3 MG/ML Ophthalmic Solution [Systane] 06/30/2020 12:00:00 AM EST eCW1 ([facility]) COMPRESSION STOCKINGS 15-20 mmHg 06/27/2020 12:00:00 AM EST eCW1 ([facility]) COMPRESSION STOCKINGS 15-20 mmHg 06/27/2020 12:00:00 AM EST eCW1 ([facility]) COMPRESSION STOCKINGS 15-20 mmHg 06/27/2020 12:00:00 AM EST eCW1 ([facility]) Diclofenac Sodium 1 % 06/27/2020 12:00:00 AM EST NETSMART ([facility]) Ferrous Sulfate 325 (65 Fe) MG 06/27/2020 12:00:00 AM EST NETSMART ([facility]) MetFORMIN HCl 500 MG 06/27/2020 12:00:00 AM EST NETSMART ([facility]) Glimepiride 4 MG 06/27/2020 12:00:00 AM EST [facility]SMART ([facility]) Vitamin D3 1000 UNIT 06/27/2020 12:00:00 AM EST NETSMART ([facility]) Tresiba FlexTouch 200 UNIT/ML 06/27/2020 12:00:00 AM EST NETSMART ([facility]) Fluticasone Propionate 50 MCG/ACT 06/27/2020 12:00:00 AM EST NETSMART ([facility]) Torsemide 20 MG 06/27/2020 12:00:00 AM EST NETSMART ([facility]) Eliquis 5 MG 06/27/2020 12:00:00 AM EST N ETSMART ([facility]) Potassium Chloride ER 10 MEQ 06/27/2020 12:00:00 AM EST NETSMART ([facility]) Vitamin B12 1000 MCG 06/27/2020 12:00:00 AM EST NETSMART ([facility]) Aspirin EC Adult Low Strength 81 MG 06/27/2020 12:00:00 AM EST NETSMART ([facility]) Omeprazole 40 MG 06/27/2020 12:00:00 AM EST NETSMART ([facility]) Rosuvastatin Calcium 20 MG 06/27/2020 12:00:00 AM EST [facility]SMART ([facility]) Allopurinol 300 MG 06/27/2020 12:00:00 AM EST NETSMART ([facility]) Pen [place] 31G X 5 MM 05/13/2020 12:00:00 AM EST eCW1 ([facility]) Pen [place] 31G X 5 MM 05/13/2020 12:00:00 AM EST eCW1 ([facility]) Pen [place] 31G X 5 MM 05/13/2020 12:00:00 AM EST eCW1 ([facility]) Pen [place] 31G X 5 MM 05/13/2020 12:00:00 AM EST eCW1 ([facility]) Pen [place] 31G X 6 MM 05/13/2020 12:00:00 AM EST eCW1 ([facility]) Pen [place] 31G X 6 MM 05/13/2020 12:00:00 AM EST eCW1 ([facility]) Pen [place] 31G X 6 MM 05/13/2020 12:00:00 AM EST eCW1 ([facility]) Pen [place] 31G X 5 MM 05/13/2020 12:00:00 AM EST eCW1 ([facility]) Pen [place] 31G X 6 MM 05/13/2020 12:00:00 AM EST eCW1 ([facility]) Pen [place] 31G X 5 MM 05/13/2020 12:00:00 AM EST eCW1 ([facility]) Pen [place] 31G X 6 MM 05/13/2020 12:00:00 AM EST eCW1 ([facility]) Pen [place] 31G X 6 MM 05/13/2020 12:00:00 AM EST eCW1 ([facility]) Pen [place] 31G X 6 MM 05/13/2020 12:00:00 AM EST eCW1 ([facility]) Pen [place] 05/13/2020 12:00:00 AM EST e CW1 ([facility]) Pen [place] 31G X 6 MM 05/13/2020 12:00:00 AM EST eCW1 ([facility]) Tresiba FlexTouch 200 UNIT/ML 05/13/2020 12:00:00 AM EST eCW1 ([facility]) Tresiba FlexTouch 200 UNIT/ML 05/13/2020 12:00:00 AM EST eCW1 ([facility]) Tresiba FlexTouch 200 UNIT/ML 05/13/2020 12:00:00 AM EST eCW1 ([facility]) Pen [place] 05/13/2020 12:00:00 AM EST e CW1 ([facility]) Tresiba FlexTouch 200 UNIT/ML 05/13/2020 12:00:00 AM EST eCW1 ([facility]) Pen [place] 05/13/2020 12:00:00 AM EST e CW1 ([facility]) Tresiba FlexTouch 200 UNIT/ML 05/13/2020 12:00:00 AM EST eCW1 ([facility]) Pen [place] 05/13/2020 12:00:00 AM EST e CW1 ([facility]) Tresiba FlexTouch 200 UNIT/ML 05/13/2020 12:00:00 AM EST eCW1 ([facility]) Pen [place] 05/13/2020 12:00:00 AM EST e CW1 ([facility]) Tresiba FlexTouch 200 UNIT/ML 05/13/2020 12:00:00 AM EST eCW1 ([facility]) Tresiba FlexTouch 200 UNIT/ML 05/13/2020 12:00:00 AM EST eCW1 ([facility]) Pen [place] 05/13/2020 12:00:00 AM EST e CW1 ([facility]) torsemide 20 MG Oral Tablet 02/17/2020 12:00:00 AM EDT eCW1 ([facility]) torsemide 20 MG Oral Tablet 02/17/2020 12:00:00 AM EDT eCW1 ([facility]) torsemide 20 MG Oral Tablet 02/17/2020 12:00:00 AM EDT eCW1 ([facility]) torsemide 10 MG Oral Tablet 02/17/2020 12:00:00 AM EDT eCW1 ([facility]) torsemide 10 MG Oral Tablet 02/17/2020 12:00:00 AM EDT eCW1 ([facility]) torsemide 10 MG Oral Tablet 02/17/2020 12:00:00 AM EDT eCW1 ([facility]) MetFORMIN HCl ER 500 MG 02/03/2020 12:00:00 AM EDT eCW1 ([facility]) MetFORMIN HCl ER 500 MG 02/03/2020 12:00:00 AM EDT eCW1 ([facility]) MetFORMIN HCl ER 500 MG 02/03/2020 12:00:00 AM EDT eCW1 ([facility]) MetFORMIN HCl ER 500 MG 02/03/2020 12:00:00 AM EDT eCW1 ([facility])
--- OUTSIDE RECORDS SUMMARY | 2021-03-12 20:03 | CCD ---
Author Author [facility] Organization [facility] Address Unknown Phone Unavailable Care Team Providers Care Residential Housekeeper Name Role Phone Karyn, Sneha PA Unavailable Unavailable Karyn, Sneha PA Unavailable Unavailable Karyn, Sneha PA Unavailable Unavailable Karyn, Sneha PA Unavailable Unavailable Karyn, Sneha PA Unavailable Unavailable Karyn, Sneha PA Unavailable Unavailable Karyn, Sneha PA Unavailable Unavailable Karyn, Sneha PA Unavailable Unavailable Karyn, Sneha PA Unavailable Unavailable Karyn, Sneha PA Unavailable Unavailable CHRIS, FRANCIS LASHAWN CARTON FORMING MACHINE TENDER-C Unavailable Unavailable CHRIS, FRANCIS LASHAWN CARTON FORMING MACHINE TENDER-C Unavailable Unavailable CHRIS, FRANCIS LASHAWN CARTON FORMING MACHINE TENDER-C Unavailable Unavailable CHRIS, FRANCIS LASHAWN CARTON FORMING MACHINE TENDER-C Unavailable Unavailable CHRIS, FRANCIS LASHAWN CARTON FORMING MACHINE TENDER-C Unavailable Unavailable CHRIS, FRANCIS LASHAWN CARTON FORMING MACHINE TENDER-C Unavailable Unavailable CHRIS, FRANCIS LASHAWN CARTON FORMING MACHINE TENDER-C Unavailable Unavailable CHRIS, FRANCIS LASHAWN CARTON FORMING MACHINE TENDER-C Unavailable Unavailable CHRIS, FRANCIS LASHAWN CARTON FORMING MACHINE TENDER-C Unavailable Unavailable CHRIS, FRANCIS LASHAWN CARTON FORMING MACHINE TENDER-C Unavailable Unavailable CHRIS, FRANCIS LASHAWN CARTON FORMING MACHINE TENDER-C Unavailable Unavailable CHRIS, FRANCIS LASHAWN CARTON FORMING MACHINE TENDER-C Unavailable Unavailable CHRIS, FRANCIS LASHAWN CARTON FORMING MACHINE TENDER-C Unavailable Unavailable CHRIS, FRANCIS LASHAWN CARTON FORMING MACHINE TENDER-C Unavailable Unavailable CHRIS, FRANCIS LASHAWN CARTON FORMING MACHINE TENDER-C Unavailable Unavailable CHRIS, FRANCIS LASHAWN CARTON FORMING MACHINE TENDER-C Unavailable Unavailable CHRIS, FRANCIS LASHAWN CARTON FORMING MACHINE TENDER-C Unavailable Unavailable Re-disclosure Warning The records that [...] is protected by Article 27-F of the [place] Public Health law. If you continue you may have access to information: Regarding HIV / AIDS; Provided by facilities licensed or operated by the [place] Office of Mental Health; or Provided by the [place] Office for People With Developmental Disabilities. If such information is present, then the following [place] mandated warning applies: This information has been [...] law may result in a fine or care home sentence or both. A general authorization for the release of medical or other information is NOT sufficient authorization for further disc losure. Allergies and Adverse Reactions Type Description Substance Reaction Status Data Source(s ) NKDA NKDA NKDA active NETSMART ([facility]) Encounters Encounter Providers Location Date Indications Data Source(s ) Unknown [address] [facility] [address] 02/28/2021 12:00:00 AM EDT [facility] [place] [address] [facility] [address] 02/15/2021 12:00:00 AM EDT eCW1 ([facility]) [place] [address] [facility] [address] 02/14/2021 12:00:00 AM EDT [facility]CW1 ([facility] [place] [place] [address] [facility] [address] 02/10/2021 12:00:00 AM EDT eCW1 ([facility] [place]) [place] [address] [facility] [address] 02/03/2021 12:00:00 AM EDT [facility]CW[facility]) Outpatient Attender: LASHAWN HONEYCUTT-Kaitlyn Gardiner/Patsy/Mir/Florence mercedes 02/01/2021 03:15:00 PM EDT MEDENT ([facility]) [place] [address] [facility] [address] 01/20/2021 12:00:00 AM EDT eCW1 ([facility]) Unknown [address] [facility] [place] [address] 01/18/2021 12:00:00 AM EDT eCW1 ([facility]) [place] [address] [facility] [place] [address] 01/16/2021 12:00:00 AM EDT eCW1 ([facility]) Unknown [address] [facility] [place] [address] 01/13/2021 12:00:00 AM EDT eCW1 ([facility]) Unknown [address] [facility] [address] 01/05/2021 12:00:00 AM EDT eCW1 ([facility]) Unknown [address] [facility] [address] 01/03/2021 12:00:00 AM EDT eCW1 ([facility]) Outpatient [address] [facility] [address] 12/26/2020 12:00:00 AM EDT eCW1 ([facility]) Unknown [address] [facility] [address] 12/19/2020 12:00:00 AM EDT eCW1 ([facility]) Unknown [address] [facility] [address] 12/05/2020 12:00:00 AM EDT eCW1 ([facility]) Unknown [address] [facility] [address] 12/01/2020 12:00:00 AM EDT eCW1 ([facility]) Unknown [address] [facility] [address] 11/28/2020 12:00:00 AM EDT eCW1 ([facility]) Unknown [address] [facility] [address] 11/14/2020 12:00:00 AM EDT eCW1 ([facility]) Outpatient Attender: LASHAWN Gardiner/Patsy/Mir/Florence mercedes 10/20/2020 02:45:00 PM EDT MEDENT ([facility]) Unknown [address] [facility] [address] 09/27/2020 12:00:00 AM EDT eCW1 ([facility]) Outpatient [address] [facility] [address] 09/27/2020 12:00:00 AM EDT eCW1 ([facility]) Unknown [address] [facility] [address] 09/21/2020 12:00:00 AM EDT eCW1 ([facility]) Unknown [address] [facility] [address] 09/14/2020 12:00:00 AM EDT eCW1 ([facility]) Unknown [address] [facility] [address] 09/12/2020 12:00:00 AM EDT eCW1 ([facility]) Office Visit, Est Pt., Level 3 PC [address] [place] [address] 09/09/2020 12:00:00 AM EDT eCW1 ([facility]) Unknown [address] [facility] [address] 09/08/2020 12:00:00 AM EDT eCW1 ([facility]) Unknown [address] [facility] Y [address] 09/01/2020 12:00:00 AM EDT eCW1 ([facility]) Unknown [address] [facility], [place] [address] 08/29/2020 12:00:00 AM EDT eCW1 ([facility]) Unknown [address] [facility] Y [address] 08/26/2020 12:00:00 AM EDT eCW1 ([facility]) Office Visit, Est Pt., Level 3 PC [address] [place] [address] 08/23/2020 12:00:00 AM EDT eCW1 ([facility]) Unknown [address] [facility] Y [address] 08/23/2020 12:00:00 AM EDT eCW1 ([facility]) Outpatient Attender: Sneha KAT 0 07/25/2020 02:40:07 PM EDT - 07/25/2020 03:29:15 PM EDT DocuTap ([facility]) Unknown [address] [facility] Y [address] 07/12/2020 12:00:00 AM EDT eCW1 ([facility]) Outpatient [address] [facility] [address] 07/11/2020 12:00:00 AM EDT eCW1 ([facility]) Unknown [address] [facility] [address] 07/06/2020 12:00:00 AM EST eCW1 ([facility]) Unknown [address] [facility] [address] 07/04/2020 12:00:00 AM EST eCW1 ([facility]) Office Visit, Est Pt., Level 3 PC [address] [place] [address] 06/30/2020 12:00:00 AM EST eCW1 ([facility]) Unknown [address] [facility] [address] 06/29/2020 12:00:00 AM EST eCW1 ([facility]) Unknown [address] [facility] [address] 06/28/2020 12:00:00 AM EST eCW1 ([facility]) Unknown [address] [facility] [address] 06/27/2020 12:00:00 AM EST eCW1 ([facility]) 06/27/2020 12:00:00 AM EST - 021 03:06:51 PM EST NETSMART ([facility]) Unknown [address] [facility] [address] 06/24/2020 12:00:00 AM EST eCW1 ([facility]) Unknown [address] [facility] [address] 06/21/2020 12:00:00 AM EST eCW1 ([facility]) Unknown [address] [facility] [address] 06/21/2020 12:00:00 AM EST eCW1 ([facility]) Unknown [address] [facility] [address] 06/21/2020 12:00:00 AM EST eCW1 ([facility]) Office Visit, Est Pt., Level 3 PC [address] [place] [address] 06/14/2020 12:00:00 AM EST eCW1 ([facility]) Unknown [address] [facility] [address] 06/13/2020 12:00:00 AM EST eCW1 ([facility]) Outpatient [address] [facility] [address] 06/02/2020 12:00:00 AM EST eCW1 ([facility]) Unknown [address] [facility] [address] 05/26/2020 12:00:00 AM EST eCW1 ([facility]) Unknown [address] [facility] [address] 05/26/2020 12:00:00 AM EST eCW1 ([facility]) Unknown [address] [facility] [address] 05/17/2020 12:00:00 AM EST eCW1 ([facility]) Unknown [address] [facility] [address] 05/16/2020 12:00:00 AM EST eCW1 ([facility]) Unknown [address] [facility] [address] 05/12/2020 12:00:00 AM EST eCW1 ([facility]) Unknown [address] [facility] [address] 05/12/2020 12:00:00 AM EST eCW1 ([facility]) Unknown [address] [facility] [address] 04/27/2020 12:00:00 AM EST eCW1 ([facility]) Unknown [address] [facility] [address] 04/12/2020 12:00:00 AM EST eCW1 ([facility]) Unknown [address] [facility] [address] 03/17/2020 12:00:00 AM EST eCW1 ([facility]) Outpatient [address] [facility] [address] 03/14/2020 12:00:00 AM EST eCW1 ([facility]) Unknown [address] [facility] [address] 03/11/2020 12:00:00 AM EST eCW1 ([facility]) Unknown [address] [facility] [address] 03/08/2020 12:00:00 AM EST eCW1 ([facility]) Unknown [address] [facility] [place] [address] 03/03/2020 12:00:00 AM EST eCW1 ([facility]) Unknown [address] [facility] [address] 03/03/2020 12:00:00 AM EST eCW1 ([facility]) Office Visit, Est Pt., Level 3 PC [address] [place] [address] 03/02/2020 12:00:00 AM EST eCW1 ([facility]) Unknown [address] [facility] Y [address] 02/29/2020 12:00:00 AM EST eCW1 ([facility]) [place] [address] [facility] Y [address] 02/26/2020 12:00:00 AM EDT eCW1 ([facility]) Unknown [address] [facility] [place] [address] 02/25/2020 12:00:00 AM EDT eCW1 ([facility]) Office Visit, Est Pt., Level 3 PC [address] [place] [address] 02/16/2020 12:00:00 AM EDT eCW1 ([facility]) Unknown [address] [facility] [address] 02/03/2020 12:00:00 AM EDT eCW1 ([facility]) Immunizations Vaccine Date Status Description Data Source(s) COVID-19 VACCINE Moderna 09/23/2020 12:00:00 AM EDT completed [place] Vaccine Series Complete: YESThis Data wa s Submitted to [facility] Via [employer]. COVID-19 VACCINE Moderna 08/24/2020 12:00:00 AM EDT completed [place] Vaccine Series Complete: NOThis Data was Submitted to [facility] Via [employer]. Medications Medication Brand Name Start Date Product Form Dose Route Admi nistrative Instructions Pharmacy Instructions Status Indications Reaction Description Data Source(s) FreeStyle Ghulam 14 Day Sensor - FreeStyle Ghulam 14 Day Senso r - 02/13/2021 12:00:00 AM EDT active FreeStyl e Ghulam 14 Day Sensor - [facility] FreeStyle Ghulam 14 Day Sensor - FreeStyle Ghulam 14 Day Senso r - 02/13/2021 12:00:00 AM EDT active FreeStyl e Ghulam 14 Day Sensor - eCW1 ([facility]) FreeStyle Ghulam 14 Day Sensor - FreeStyle Ghulam 14 Day Senso r - 02/13/2021 12:00:00 AM EDT active FreeStyl e Ghulam 14 Day Sensor - eCW1 ([facility]) FreeStyle Ghulam 14 Day Sensor - FreeStyle Ghulam 14 Day Senso r - 02/13/2021 12:00:00 AM EDT active FreeStyl e Ghulam 14 Day Sensor - eCW1 ([facility]) 31 gauge x 3/16" 01/21/2021 12:00:00 [...] propionate 0.05 MG/ACTUAT Metered Dose Chuck al Tuthill 50 mcg/actuation FLUTICASONE PROPIONATE 12/27/2020 12:00:00 AM [...] Autopap 10/26/2020 12:00:00 AM EDT active MEDENT ([facility], ) 12 % 09/30/2020 12:00:00 AM EDT [...] A DAY TO BOTH FEET SOLD: 10/06/2020 [facility] ammonium lactate 120 MG/ML Topical Cream Ammonium Lact ate 12 % Ammonium Lactate 12 % 09/27/2020 12:00:00 AM EDT 1.0 {application} active Ammonium Lactate 12 % eCW1 ([facility]) ammonium lactate 120 MG/ML Topical Cream Ammonium Lact ate 12 % Ammonium Lactate 12 % 09/27/2020 12:00:00 AM EDT 1.0 {application} active Ammonium Lactate 12 % eCW1 [facility]) ammonium lactate 120 MG/ML Topical Cream Ammonium Lact ate 12 % Ammonium Lactate 12 % 09/27/2020 12:00:00 AM EDT 1.0 {application} active Ammonium Lactate 12 % eCW1 ([facility]) ammonium lactate 120 MG/ML Topical Cream Ammonium Lact ate 12 % Ammonium Lactate 12 % 09/27/2020 12:00:00 AM EDT 1.0 {application} active Ammonium Lactate 12 % eCW1 ([facility]) ammonium lactate 120 MG/ML Topical Cream Ammonium Lact ate 12 % Ammonium Lactate 12 % 09/27/2020 12:00:00 AM EDT 1.0 {application} active Ammonium Lactate 12 % eCW1 ([facility]) ammonium lactate 120 MG/ML Topical Cream Ammonium Lact ate 12 % Ammonium Lactate 12 % 09/27/2020 12:00:00 AM EDT 1.0 {application} active Ammonium Lactate 12 % eCW1 ([facility]) ammonium lactate 120 MG/ML Topical Cream Ammonium Lact ate 12 % Ammonium Lactate 12 % 09/27/2020 12:00:00 AM EDT 1.0 {application} active Ammonium Lactate 12 % eCW1 ([facility]) ammonium lactate 120 MG/ML Topical Cream Ammonium Lact ate 12 % Ammonium Lactate 12 % 09/27/2020 12:00:00 AM EDT 1.0 {application} active Ammonium Lactate 12 % eCW1 ([facility]) 31 gauge x 3/16" 09/14/2020 12:00:00 [...] 12:00:00 AM EDT active CPAP mask eCW1 ([facility]) CPAP mask UNK 09/12/2020 12:00:00 AM EDT active CPAP mask eCW1 ([facility]) CPAP Machine UNK 09/12/2020 12:00:00 AM EDT activ e CPAP Machine eCW1 ([facility]) CPAP Machine UNK 09/12/2020 12:00:00 AM EDT activ e CPAP Machine eCW1 ([facility]) CPAP Machine UNK 09/12/2020 12:00:00 AM EDT activ e CPAP Machine eCW1 ([facility]) CPAP mask UNK 09/12/2020 12:00:00 AM EDT active CPAP mask eCW1 ([facility]) CPAP mask UNK 09/12/2020 12:00:00 AM EDT active CPAP mask eCW1 ([facility]) CPAP mask UNK 09/12/2020 12:00:00 AM EDT active CPAP mask eCW1 ([facility]) CPAP mask UNK 09/12/2020 12:00:00 AM EDT active CPAP mask eCW1 ([facility]) CPAP Machine UNK 09/12/2020 12:00:00 AM EDT activ e CPAP Machine eCW1 ([facility]) CPAP mask UNK 09/12/2020 12:00:00 AM EDT active CPAP mask eCW1 ([facility]) CPAP Machine UNK 09/12/2020 12:00:00 AM EDT activ e CPAP Machine eCW1 ([facility]) CPAP mask UNK 09/12/2020 12:00:00 AM EDT active CPAP mask eCW1 ([facility]) CPAP Machine UNK 09/12/2020 12:00:00 AM EDT activ e CPAP Machine eCW1 ([facility]) CPAP Machine UNK 09/12/2020 12:00:00 AM EDT activ e CPAP Machine eCW1 ([facility]) CPAP mask UNK 09/12/2020 12:00:00 AM EDT active CPAP mask eCW1 ([facility]) CPAP Machine UNK 09/12/2020 12:00:00 AM EDT activ e CPAP Machine eCW1 ([facility]) CPAP Machine UNK 09/12/2020 12:00:00 AM EDT activ e CPAP Machine eCW1 ([facility]) CPAP mask UNK 09/12/2020 12:00:00 AM EDT active CPAP mask eCW1 ([facility]) CPAP Machine UNK 09/12/2020 12:00:00 AM EDT activ e CPAP Machine eCW1 ([facility]) CPAP Machine UNK 09/12/2020 12:00:00 AM EDT activ e CPAP Machine eCW1 ([facility]) CPAP Machine UNK 09/12/2020 12:00:00 AM EDT activ e CPAP Machine eCW1 ([facility]) CPAP mask UNK 09/12/2020 12:00:00 AM EDT active CPAP mask eCW1 ([facility]) CPAP mask UNK 09/12/2020 12:00:00 AM EDT active CPAP mask eCW1 ([facility]) CPAP Machine UNK 09/12/2020 12:00:00 AM EDT activ e CPAP Machine eCW1 ([facility]) CPAP Machine UNK 09/12/2020 12:00:00 AM EDT activ e CPAP Machine eCW1 ([facility]) CPAP mask UNK 09/12/2020 12:00:00 AM EDT active CPAP mask eCW1 ([facility]) CPAP Machine UNK 09/12/2020 12:00:00 AM EDT activ e CPAP Machine eCW1 ([facility]) CPAP Machine UNK 09/12/2020 12:00:00 AM EDT activ e CPAP Machine eCW1 ([facility]) CPAP Machine UNK 09/12/2020 12:00:00 AM EDT activ e CPAP Machine eCW1 ([facility]) CPAP Machine UNK 09/12/2020 12:00:00 AM EDT activ e CPAP Machine eCW1 ([facility]) CPAP Machine UNK 09/12/2020 12:00:00 AM EDT activ e CPAP Machine eCW1 ([facility]) CPAP mask UNK 09/12/2020 12:00:00 AM EDT active CPAP mask eCW1 ([facility]) CPAP mask UNK 09/12/2020 12:00:00 AM EDT active CPAP mask eCW1 ([facility]) CPAP mask UNK 09/12/2020 12:00:00 AM EDT active CPAP mask eCW1 ([facility]) CPAP mask UNK 09/12/2020 12:00:00 AM EDT active CPAP mask eCW1 ([facility]) CPAP mask UNK 09/12/2020 12:00:00 AM EDT active CPAP mask eCW1 ([facility]) CPAP Machine UNK 09/12/2020 12:00:00 AM EDT activ e CPAP Machine eCW1 ([facility]) CPAP Machine UNK 09/12/2020 12:00:00 AM EDT activ e CPAP Machine eCW1 ([facility]) CPAP Machine UNK 09/12/2020 12:00:00 AM EDT activ e CPAP Machine eCW1 ([facility]) CPAP mask UNK 09/12/2020 12:00:00 AM EDT active CPAP mask eCW1 ([facility]) CPAP Machine UNK 09/12/2020 12:00:00 AM EDT activ e CPAP Machine eCW1 ([facility]) CPAP mask UNK 09/12/2020 12:00:00 AM EDT active CPAP mask eCW1 ([facility]) CPAP Machine UNK 09/12/2020 12:00:00 AM EDT activ e CPAP Machine eCW1 ([facility]) CPAP mask UNK 09/12/2020 12:00:00 AM EDT active CPAP mask eCW1 ([facility]) CPAP mask UNK 09/12/2020 12:00:00 AM EDT active CPAP mask eCW1 ([facility]) CPAP mask UNK 09/12/2020 12:00:00 AM EDT active CPAP mask eCW1 ([facility]) CPAP mask UNK 09/12/2020 12:00:00 AM EDT active CPAP mask eCW1 ([facility]) 24 HR Metformin hydrochloride 500 MG [...] tablet 90 TAKE ONE TABLET BY MOUTH IMTRA DAY TAKE ONE TABLET BY MOUTH EVERY [...] EST active Optifoam Gentle Foam Dressings eCW1 ([facility]) Optifoam Gentle Foam Dressings UNK 06/30/2020 12:00:00 AM EST active Optifoam Gentle Foam Dressings eCW1 ([facility]) Polyethylene Glycol 400 4 MG/ML / Propyl meliton glycol 3 MG/ML Ophthalmic Solution [Systane] Systane Ultra 0.4-0.3 % Systane Ultra 0.4-0.3 % 06/30/2020 12:00:00 AM EST active Systane Ultra 0.4 -0.3 % eCW1 ([facility]) Optifoam Gentle Foam Dressings UNK 06/30/2020 12:00:00 AM EST active Optifoam Gentle Foam Dressings eCW1 ([facility]) Polyethylene Glycol 400 4 MG/ML / Propyl meliton glycol 3 MG/ML Ophthalmic Solution [Systane] Systane Ultra 0.4-0.3 % Systane Ultra 0.4-0.3 % 06/30/2020 12:00:00 AM EST active Systane Ultra 0.4 -0.3 % eCW1 ([facility]) Optifoam Gentle Foam Dressings UNK 06/30/2020 12:00:00 AM EST active Optifoam Gentle Foam Dressings eCW1 ([facility]) Optifoam Gentle Foam Dressings UNK 06/30/2020 12:00:00 AM EST active Optifoam Gentle Foam Dressings eCW1 ([facility]) Polyethylene Glycol 400 4 MG/ML / Propyl meliton glycol 3 MG/ML Ophthalmic Solution [Systane] Systane Ultra 0.4-0.3 % Systane Ultra 0.4-0.3 % 06/30/2020 12:00:00 AM EST active Systane Ultra 0.4 -0.3 % eCW1 [facility]) Polyethylene Glycol 400 4 MG/ML / Propyl meliton glycol 3 MG/ML Ophthalmic Solution [Systane] Systane Ultra 0.4-0.3 % Systane Ultra 0.4-0.3 % 06/30/2020 12:00:00 AM EST active Systane Ultra 0.4 -0.3 % eCW1 ([facility]) Optifoam Gentle Foam Dressings UNK 06/30/2020 12:00:00 AM EST active Optifoam Gentle Foam Dressings eCW1 ([facility]) Optifoam Gentle Foam Dressings UNK 06/30/2020 12:00:00 AM EST active Optifoam Gentle Foam Dressings eCW1 ([facility]) Optifoam Gentle Foam Dressings UNK 06/30/2020 12:00:00 AM EST active Optifoam Gentle Foam Dressings eCW1 ([facility]) Optifoam Gentle Foam Dressings UNK 06/30/2020 12:00:00 AM EST active Optifoam Gentle Foam Dressings eCW1 ([facility]) Polyethylene Glycol 400 4 MG/ML / Propyl meliton glycol 3 MG/ML Ophthalmic Solution [Systane] Systane Ultra 0.4-0.3 % Systane Ultra 0.4-0.3 % 06/30/2020 12:00:00 AM EST active Systane Ultra 0.4 -0.3 % eCW1 ([facility]) Optifoam Gentle Foam Dressings UNK 06/30/2020 12:00:00 AM EST active Optifoam Gentle Foam Dressings eCW1 ([facility]) Optifoam Gentle Foam Dressings UNK 06/30/2020 12:00:00 AM EST active Optifoam Gentle Foam Dressings eCW1 ([facility]) Polyethylene Glycol 400 4 MG/ML / Propyl meliton glycol 3 MG/ML Ophthalmic Solution [Systane] Systane Ultra 0.4-0.3 % Systane Ultra 0.4-0.3 % 06/30/2020 12:00:00 AM EST active Systane Ultra 0.4 -0.3 % eCW1 ([facility]) Optifoam Gentle Foam Dressings UNK 06/30/2020 12:00:00 AM EST active Optifoam Gentle Foam Dressings eCW1 ([facility]) Polyethylene Glycol 400 4 MG/ML / Propyl meliton glycol 3 MG/ML Ophthalmic Solution [Systane] Systane Ultra 0.4-0.3 % Systane Ultra 0.4-0.3 % 06/30/2020 12:00:00 AM EST active Systane Ultra 0.4 -0.3 % eCW1 ([facility]) Optifoam Gentle Foam Dressings UNK 06/30/2020 12:00:00 AM EST active Optifoam Gentle Foam Dressings eCW1 ([facility]) Optifoam Gentle Foam Dressings UNK 06/30/2020 12:00:00 AM EST active Optifoam Gentle Foam Dressings eCW1 ([facility]) Optifoam Gentle Foam Dressings UNK 06/30/2020 12:00:00 AM EST active Optifoam Gentle Foam Dressings eCW1 ([facility]) Optifoam Gentle Foam Dressings UNK 06/30/2020 12:00:00 AM EST active Optifoam Gentle Foam Dressings eCW1 ([facility]) Optifoam Gentle Foam Dressings UNK 06/30/2020 12:00:00 AM EST active Optifoam Gentle Foam Dressings eCW1 ([facility]) Polyethylene Glycol 400 4 MG/ML / Propyl meliton glycol 3 MG/ML Ophthalmic Solution [Systane] Systane Ultra 0.4-0.3 % Systane Ultra 0.4-0.3 % 06/30/2020 12:00:00 AM EST active Systane Ultra 0.4 -0.3 % eCW1 ([facility]) Optifoam Gentle Foam Dressings UNK 06/30/2020 12:00:00 AM EST active Optifoam Gentle Foam Dressings eCW1 ([facility]) Polyethylene Glycol 400 4 MG/ML / Propyl meliton glycol 3 MG/ML Ophthalmic Solution [Systane] Systane Ultra 0.4-0.3 % Systane Ultra 0.4-0.3 % 06/30/2020 12:00:00 AM EST active Systane Ultra 0.4 -0.3 % eCW1 ([facility]) Polyethylene Glycol 400 4 MG/ML / Propyl meliton glycol 3 MG/ML Ophthalmic Solution [Systane] Systane Ultra 0.4-0.3 % Systane Ultra 0.4-0.3 % 06/30/2020 12:00:00 AM EST active Systane Ultra 0.4 -0.3 % eCW1 ([facility]) Optifoam Gentle Foam Dressings UNK 06/30/2020 12:00:00 AM EST active Optifoam Gentle Foam Dressings eCW1 ([facility]) Optifoam [employer] UNK 06/30/2020 12:00:00 AM EST active Optifoam [employer]ings eCW1 ([facility]) [employer]ifoam [employer] UNK 06/30/2020 12:00:00 AM EST active [employer]ifoam [employer] eCW1 ([facility]) [employer]ifoam [employer]am [employer]ings UNK 06/30/2020 12:00:00 AM EST active Optifoam Gent[employer]am [employer]ings eCW1 ([facility]) [employer]ifoam Gent[employer]ings UNK 06/30/2020 12:00:00 AM EST active [employer]oam [employer] eCW1 ([facility]) Polyethylene Glycol 400 4 MG/ML / Propyl meliton glycol 3 MG/ML Ophthalmic Solution [Systane] Systane Ultra 0.4-0.3 % Systane Ultra 0.4-0.3 % 06/30/2020 12:00:00 AM EST active Systane Ultra 0.4 -0.3 % [facility] Polyethylene Glycol 400 4 MG/ML / Propyl meliton glycol 3 MG/ML Ophthalmic Solution [Systane] Systane Ultra 0.4-0.3 % Systane Ultra 0.4-0.3 % 06/30/2020 12:00:00 AM EST active Systane Ultra 0.4 -0.3 % eCW1 [facility]) Optifoam Gent[employer]am [employer]ings UNK 06/30/2020 12:00:00 AM EST active Optifoam [employer] eCW1 ([facility]) Polyethylene Glycol 400 4 MG/ML / Propyl meliton glycol 3 MG/ML Ophthalmic Solution [Systane] Systane Ultra 0.4-0.3 % Systane Ultra 0.4-0.3 % 06/30/2020 12:00:00 AM EST active Systane Ultra 0.4 -0.3 % eCW1 [facility]) Optifoam Gent[employer]am [employer]ings UNK 06/30/2020 12:00:00 AM EST active Optifoam Gent[employer]ings eCW1 ([facility]) Optifoam Gent[employer]ings UNK 06/30/2020 12:00:00 AM EST active Optifoam Gent[employer]am [employer]ings eCW1 ([facility]) Optifoam Gent[employer] UNK 06/30/2020 12:00:00 AM EST active [employer]ifoam Gent[employer]ings eCW1 ([facility]) [employer]ifoam Gent[employer]ings UNK 06/30/2020 12:00:00 AM EST active Optifoam Gent[employer]ings eCW1 ([facility]) Optifoam Gent[employer]ings UNK 06/30/2020 12:00:00 AM EST active Optifoam Gent[employer]ings eCW1 ([facility]) Optifoam Gent[employer] UNK 06/30/2020 12:00:00 AM EST active Optifoam Gentle [employer]am [employer]ings eCW1 ([facility]) [employer]ifoam Gent[employer]ings UNK 06/30/2020 12:00:00 AM EST active [employer]oam Gent[employer]ings eCW1 ([facility]) Polyethylene Glycol 400 4 MG/ML / Propyl meliton glycol 3 MG/ML Ophthalmic Solution [Systane] Systane Ultra 0.4-0.3 % Systane Ultra 0.4-0.3 % 06/30/2020 12:00:00 AM EST active Systane Ultra 0.4 -0.3 % eCW1 [facility]) [employer]ifoam Gent[employer]am [employer]ings UNK 06/30/2020 12:00:00 AM EST active Optifoam Gent[employer]am [employer]ings eCW1 ([facility]) Polyethylene Glycol 400 4 MG/ML / Propyl meliton glycol 3 MG/ML Ophthalmic Solution [Systane] Systane Ultra 0.4-0.3 % Systane Ultra 0.4-0.3 % 06/30/2020 12:00:00 AM EST active Systane Ultra 0.4 -0.3 % eCW1 [facility]) [employer]ifoam Gentle [employer]am [employer]ings UNK 06/30/2020 12:00:00 AM EST active Optifoam Gentle [employer]am [employer]ings eCW1 ([facility]) [employer]oam Gent[employer] UNK 06/30/2020 12:00:00 AM EST active Optifoam Gentle Foam [employer]ings eCW1 ([facility]) Optifoam Gentle [employer]ings UNK 06/30/2020 12:00:00 AM EST active Optifoam Gent[employer]am [employer]ings eCW1 ([facility]) Polyethylene Glycol 400 4 MG/ML / Propyl meliton glycol 3 MG/ML Ophthalmic Solution [Systane] Systane Ultra 0.4-0.3 % Systane Ultra 0.4-0.3 % 06/30/2020 12:00:00 AM EST active Systane Ultra 0.4 -0.3 % eCW1 [facility]) [employer]ifoam Gent[employer]am [employer]ings UNK 06/30/2020 12:00:00 AM EST active Optifoam Gent[employer]ings eCW1 ([facility]) Optifoam Gent[employer]ings UNK 06/30/2020 12:00:00 AM EST active [employer]ifoam [employer] eCW1 ([facility]) COMPRESSION STOCKINGS 15-20 mmHg UNK 06/27/2020 12:00:00 AM EST active COMPRESSION STOCKINGS 15-20 mmHg eCW1 ([facility]) COMPRESSION STOCKINGS 15-20 mmHg UNK 06/27/2020 12:00:00 AM EST active COMPRESSION STOCKINGS 15-20 mmHg eCW1 ([facility]) COMPRESSION STOCKINGS 15-20 mmHg UNK 06/27/2020 12:00:00 AM EST active COMPRESSION STOCKINGS 15-20 mmHg eCW1 ([facility]) COMPRESSION STOCKINGS 15-20 mmHg UNK 06/27/2020 12:00:00 AM EST active COMPRESSION STOCKINGS 15-20 mmHg eCW1 ([facility]) COMPRESSION STOCKINGS 15-20 mmHg UNK 06/27/2020 12:00:00 AM EST active COMPRESSION STOCKINGS 15-20 mmHg eCW1 ([facility]) COMPRESSION STOCKINGS 15-20 mmHg UNK 06/27/2020 12:00:00 AM EST active COMPRESSION STOCKINGS 15-20 mmHg eCW1 ([facility]) COMPRESSION STOCKINGS 15-20 mmHg UNK 06/27/2020 12:00:00 AM EST active COMPRESSION STOCKINGS 15-20 mmHg eCW1 ([facility]) COMPRESSION STOCKINGS 15-20 mmHg UNK 06/27/2020 12:00:00 AM EST active COMPRESSION STOCKINGS 15-20 mmHg eCW1 ([facility]) COMPRESSION STOCKINGS 15-20 mmHg UNK 06/27/2020 12:00:00 AM EST active COMPRESSION STOCKINGS 15-20 mmHg eCW1 ([facility]) COMPRESSION STOCKINGS 15-20 mmHg UNK 06/27/2020 12:00:00 AM EST active COMPRESSION STOCKINGS 15-20 mmHg eCW1 ([facility]) COMPRESSION STOCKINGS 15-20 mmHg UNK 06/27/2020 12:00:00 AM EST active COMPRESSION STOCKINGS 15-20 mmHg eCW1 ([facility]) COMPRESSION STOCKINGS 15-20 mmHg UNK 06/27/2020 12:00:00 AM EST active COMPRESSION STOCKINGS 15-20 mmHg eCW1 ([facility]) COMPRESSION STOCKINGS 15-20 mmHg UNK 06/27/2020 12:00:00 AM EST active COMPRESSION STOCKINGS 15-20 mmHg eCW1 ([facility]) COMPRESSION STOCKINGS 15-20 mmHg UNK 06/27/2020 12:00:00 AM EST active COMPRESSION STOCKINGS 15-20 mmHg eCW1 ([facility]) COMPRESSION STOCKINGS 15-20 mmHg UNK 06/27/2020 12:00:00 AM EST active COMPRESSION STOCKINGS 15-20 mmHg eCW1 ([facility]) COMPRESSION STOCKINGS 15-20 mmHg UNK 06/27/2020 12:00:00 AM EST active COMPRESSION STOCKINGS 15-20 mmHg eCW1 ([facility]) COMPRESSION STOCKINGS 15-20 mmHg UNK 06/27/2020 12:00:00 AM EST active COMPRESSION STOCKINGS 15-20 mmHg eCW1 ([facility]) COMPRESSION STOCKINGS 15-20 mmHg UNK 06/27/2020 12:00:00 AM EST active COMPRESSION STOCKINGS 15-20 mmHg eCW1 ([facility]) COMPRESSION STOCKINGS 15-20 mmHg UNK 06/27/2020 12:00:00 AM EST active COMPRESSION STOCKINGS 15-20 mmHg eCW1 ([facility]) MetFORMIN HCl 500 MG MetFORMIN HCl 06/27/2020 12:00:00 AM EST 50 0.0 {mg} completed NETSMART ([facility]) Ferrous Sulfate 325 (65 Fe) MG Ferrous Sulfate 06/27/2020 12:00:00 AM EST completed NETSMART ([facility]) Vitamin D3 1000 UNIT Vitamin D3 06/27/2020 12:00:00 AM EST 5000. 0 {Units} completed NETSMART ([facility]) Glimepiride 4 MG Glimepiride 06/27/2020 12:00:00 AM EST 4.0 {mg} completed NETSMART ([facility]) COMPRESSION STOCKINGS 15-20 mmHg UNK 06/27/2020 12:00:00 AM EST active COMPRESSION STOCKINGS 15-20 mmHg eCW1 ([facility]) COMPRESSION STOCKINGS 15-20 mmHg UNK 06/27/2020 12:00:00 AM EST active COMPRESSION STOCKINGS 15-20 mmHg eCW1 ([facility]) COMPRESSION STOCKINGS 15-20 mmHg UNK 06/27/2020 12:00:00 AM EST active COMPRESSION STOCKINGS 15-20 mmHg eCW1 ([facility]) COMPRESSION STOCKINGS 15-20 mmHg UNK 06/27/2020 12:00:00 AM EST active COMPRESSION STOCKINGS 15-20 mmHg eCW1 ([facility]) Fluticasone Propionate 50 MCG/ACT Fluticasone Propionate 04/2020 12:00:00 AM EST completed NETSMAR T ([facility]) Tresiba FlexTouch 200 UNIT/ML Tresiba FlexTouch 06/27/2020 12:00:00 AM EST 10.0 {unit} completed NETSMART ( [facility]) Eliquis 5 MG Eliquis 06/27/2020 12:00:00 AM EST 5.0 {mg} completed NETSMART ([facility] ) COMPRESSION STOCKINGS 15-20 mmHg UNK 06/27/2020 12:00:00 AM EST active COMPRESSION STOCKINGS 15-20 mmHg eCW1 ([facility]) Torsemide 20 MG Torsemide 06/27/2020 12:00:00 AM EST 30.0 {mg} completed NETSMART ([facility]) Potassium Chloride ER 10 MEQ Potassium Chloride ER 06/27/2020 12:00 :00 AM EST 10.0 {mEq} completed NETSMART ([facility]) COMPRESSION STOCKINGS 15-20 mmHg UNK 06/27/2020 12:00:00 AM EST active COMPRESSION STOCKINGS 15-20 mmHg eCW1 ([facility]) Aspirin EC Adult Low Strength 81 MG Aspirin EC Adult Low Str ength 06/27/2020 12:00:00 AM EST 81.0 {mg} completed NETSMART ([facility]) Vitamin B12 1000 MCG Vitamin B12 06/27/2020 12:00:00 AM EST 1000 .0 {mcg} completed NETSMART ([facility]) Rosuvastatin Calcium 20 MG Rosuvastatin Calcium 06/27/2020 12:00:00 AM EST 20.0 {mg} completed NETSMART ([facility]) Omeprazole 40 MG Omeprazole 06/27/2020 12:00:00 AM EST 40.0 {mg} completed NETSMART ([facility]) COMPRESSION STOCKINGS 15-20 mmHg UNK 06/27/2020 12:00:00 AM EST active COMPRESSION STOCKINGS 15-20 mmHg eCW1 ([facility]) Allopurinol 300 MG Allopurinol 06/27/2020 12:00:00 AM EST 300.0 {mg} completed NETSMART ([facility]) COMPRESSION STOCKINGS 15-20 mmHg UNK 06/27/2020 12:00:00 AM EST active COMPRESSION STOCKINGS 15-20 mmHg eCW1 ([facility]) COMPRESSION STOCKINGS 15-20 mmHg UNK 06/27/2020 12:00:00 AM EST active COMPRESSION STOCKINGS 15-20 mmHg eCW1 ([facility]) COMPRESSION STOCKINGS 15-20 mmHg UNK 06/27/2020 12:00:00 AM EST active COMPRESSION STOCKINGS 15-20 mmHg eCW1 ([facility]) COMPRESSION STOCKINGS 15-20 mmHg UNK 06/27/2020 12:00:00 AM EST active COMPRESSION STOCKINGS 15-20 mmHg eCW1 ([facility]) COMPRESSION STOCKINGS 15-20 mmHg UNK 06/27/2020 12:00:00 AM EST active COMPRESSION STOCKINGS 15-20 mmHg eCW1 ([facility]) COMPRESSION STOCKINGS 15-20 mmHg UNK 06/27/2020 12:00:00 AM EST active COMPRESSION STOCKINGS 15-20 mmHg eCW1 ([facility]) COMPRESSION STOCKINGS 15-20 mmHg UNK 06/27/2020 12:00:00 AM EST active COMPRESSION STOCKINGS 15-20 mmHg eCW1 ([facility]) COMPRESSION STOCKINGS 15-20 mmHg UNK 06/27/2020 12:00:00 AM EST active COMPRESSION STOCKINGS 15-20 mmHg eCW1 ([facility]) COMPRESSION STOCKINGS 15-20 mmHg UNK 06/27/2020 12:00:00 AM EST active COMPRESSION STOCKINGS 15-20 mmHg eCW1 ([facility]) COMPRESSION STOCKINGS 15-20 mmHg UNK 06/27/2020 12:00:00 AM EST active COMPRESSION STOCKINGS 15-20 mmHg eCW1 ([facility]) COMPRESSION STOCKINGS 15-20 mmHg UNK 06/27/2020 12:00:00 AM EST active COMPRESSION STOCKINGS 15-20 mmHg eCW1 ([facility]) COMPRESSION STOCKINGS 15-20 mmHg UNK 06/27/2020 12:00:00 AM EST active COMPRESSION STOCKINGS 15-20 mmHg eCW1 ([facility]) Diclofenac Sodium 1 % Diclofenac Sodium 06/27/2020 12:00:00 AM EST completed NETSMART ([facility]) COMPRESSION STOCKINGS 15-20 mmHg UNK 06/27/2020 12:00:00 AM EST active COMPRESSION STOCKINGS 15-20 mmHg eCW1 ([facility]) COMPRESSION STOCKINGS 15-20 mmHg UNK 06/27/2020 12:00:00 AM EST active COMPRESSION STOCKINGS 15-20 mmHg eCW1 ([facility]) 20 mg 06/22/2020 12:00:00 AM EST [...] AT BEDTIME SOLD: 08/15/2020 [facility] Pen Medora 31G X 6 MM Pen Medora 31G X 6 MM 05/13/2020 12:00:[address] active Pen [place] 31G X 6 MM eC W1 [facility]) Pen Medora UNK 05/13/2020 12:00:00 AM EST active [place] eCW1 ([facility]) Pen [place] UNK 05/13/2020 12:00:00 AM EST active [place] eCW1 ([facility]) Tresiba FlexTouch 200 UNIT/ML Tresiba FlexTouch 200 UNIT/ML 05/13/2020 12:00:00 AM EST active Tresiba FlexTouch 200 UNIT/ML eCW1 [facility]) Pen [place] UNK 05/13/2020 12:00:00 AM EST active [place] eCW1 ([facility]) Pen [place] UNK 05/13/2020 12:00:00 AM EST active [place] eCW1 ([facility]) Pen [place] 31G X 5 MM Pen [place] 31G X 5 MM 05/13/2020 12:00:[address] active Pen [place] 31G X 5 MM eC W1 ([facility]) Pen [place] UNK 05/13/2020 12:00:00 AM EST active [place] eCW1 ([facility]) Pen [place] UNK 05/13/2020 12:00:00 AM EST active [place] eCW1 ([facility]) Tresiba FlexTouch 200 UNIT/ML Tresiba FlexTouch 200 UNIT/ML 05/13/2020 12:00:00 AM EST active Tresiba FlexTouch 200 UNIT/ML eCW1 [facility]) Pen [place] 31G X 6 MM Pen [place] 31G X 6 MM 05/13/2020 12:00:[address] active Pen [place] 31G X 6 MM eC W1 ([facility]) Pen [place] 31G X 6 MM Pen [place] 31G X 6 MM 05/13/2020 12:00:[address] active Pen [place] 31G X 6 MM eC W1 [facility]) Pen [place] UNK 05/13/2020 12:00:00 AM EST active [place] eCW1 ([facility]) Pen [place] 31G X 6 MM Pen [place] 31G X 6 MM 05/13/2020 12:00:[address] active Pen [place] 31G X 6 MM eC W1 [facility]) Pen [place] UNK 05/13/2020 12:00:00 AM EST active [place] eCW1 ([facility]) Tresiba FlexTouch 200 UNIT/ML Tresiba FlexTouch 200 UNIT/ML 05/13/2020 12:00:00 AM EST active Tresiba FlexTouch 200 UNIT/ML eCW1 ([facility]) Pen [place] UNK 05/13/2020 12:00:00 AM EST active [place] eCW1 ([facility]) Tresiba FlexTouch 200 UNIT/ML Tresiba FlexTouch 200 UNIT/ML 05/13/2020 12:00:00 AM EST active Tresiba FlexTouch 200 UNIT/ML eCW1 [facility]) Pen [place] UNK 05/13/2020 12:00:00 AM EST active Pen [place] eCW1 ([facility]) Pen [place] UNK 05/13/2020 12:00:00 AM EST active [place] eCW1 ([facility]) Pen [place] 31G X 6 MM Pen [place] 31G X 6 MM 05/13/2020 12:00:[address] active Pen [place] 31G X 6 MM eC W1 ([facility]) Pen [place] UNK 05/13/2020 12:00:00 AM EST active [place] eCW1 ([facility]) Pen [place] UNK 05/13/2020 12:00:00 AM EST active [place] eCW1 ([facility]) Tresiba FlexTouch 200 UNIT/ML Tresiba FlexTouch 200 UNIT/ML 05/13/2020 12:00:00 AM EST active Tresiba FlexTouch 200 UNIT/ML eCW1 [facility]) Pen [place] UNK 05/13/2020 12:00:00 AM EST active Pen [place] eCW1 ([facility]) Pen [place] UNK 05/13/2020 12:00:00 AM EST active [place] eCW1 ([facility]) Pen [place] UNK 05/13/2020 12:00:00 AM EST active [place] eCW1 ([facility]) Tresiba FlexTouch 200 UNIT/ML Tresiba FlexTouch 200 UNIT/ML 05/13/2020 12:00:00 AM EST active Tresiba FlexTouch 200 UNIT/ML eCW1 [facility]) Tresiba FlexTouch 200 UNIT/ML Tresiba FlexTouch 200 UNIT/ML 05/13/2020 12:00:00 AM EST active Tresiba FlexTouch 200 UNIT/ML eCW1 [facility]) Tresiba FlexTouch 200 UNIT/ML Tresiba FlexTouch 200 UNIT/ML 05/13/2020 12:00:00 AM EST active Tresiba FlexTouch 200 UNIT/ML eCW1 [facility]) Pen [place] 31G X 6 MM Pen [place] 31G X 6 MM 05/13/2020 12:00:[address] active Pen [place] 31G X 6 MM eC W1 ([facility]) Pen [place] UNK 05/13/2020 12:00:00 AM EST active [place] eCW1 ([facility]) Pen [place] UNK 05/13/2020 12:00:00 AM EST active [place] eCW1 ([facility]) Tresiba FlexTouch 200 UNIT/ML Tresiba FlexTouch 200 UNIT/ML 05/13/2020 12:00:00 AM EST active Tresiba FlexTouch 200 UNIT/ML eCW1 [facility]) Tresiba FlexTouch 200 UNIT/ML Tresiba FlexTouch 200 UNIT/ML 05/13/2020 12:00:00 AM EST active Tresiba FlexTouch 200 UNIT/ML eCW1 ([facility]) Pen [place] UNK 05/13/2020 12:00:00 AM EST active [place] eCW1 ([facility]) Pen [place] UNK 05/13/2020 12:00:00 AM EST active [place] eCW1 ([facility]) Tresiba FlexTouch 200 UNIT/ML Tresiba FlexTouch 200 UNIT/ML 05/13/2020 12:00:00 AM EST active Tresiba FlexTouch 200 UNIT/ML eCW1 [facility] 31 gauge x 3/16" 05/13/2020 12:00:00 AM EST needle 30 USE DIRECTED ONCE DAILY USE DIRECTED ONCE DAILY SOLD: 06/16/2020 [facility] Tresiba FlexTouch 200 UNIT/ML Tresiba FlexTouch 200 UNIT/ML 05/13/2020 12:00:00 AM EST active Tresiba FlexTouch 200 UNIT/ML eCW1 [facility]) Pen [place] UNK 05/13/2020 12:00:00 AM EST active [place] eCW1 ([facility]) Tresiba FlexTouch 200 UNIT/ML Tresiba FlexTouch 200 UNIT/ML 05/13/2020 12:00:00 AM EST active Tresiba FlexTouch 200 UNIT/ML eCW1 ([facility]) [place] UNK 05/13/2020 12:00:00 AM EST active [place] eCW1 ([facility]) Tresiba FlexTouch 200 UNIT/ML Tresiba FlexTouch 200 UNIT/ML 05/13/2020 12:00:00 AM EST active Tresiba FlexTouch 200 UNIT/ML eCW1 ([facility]) Pen [place] 31G X 6 MM Pen [place] 31G X 6 MM 05/13/2020 12:00:[address] active Pen [place] 31G X 6 MM eC W1 ([facility]) Pen [place] UNK 05/13/2020 12:00:00 AM EST active [place] eCW1 ([facility]) Tresiba FlexTouch 200 UNIT/ML Tresiba FlexTouch 200 UNIT/ML 05/13/2020 12:00:00 AM EST active Tresiba FlexTouch 200 UNIT/ML eCW1 ([facility]) Tresiba FlexTouch 200 UNIT/ML Tresiba FlexTouch 200 UNIT/ML 05/13/2020 12:00:00 AM EST active Tresiba FlexTouch 200 UNIT/ML eCW1 ([facility]) [place] UNK 05/13/2020 12:00:00 AM EST active [place] eCW1 ([facility]) Pen [place] UNK 05/13/2020 12:00:00 AM EST active [place] eCW1 ([facility]) Pen [place] 31G X 5 MM Pen [place] 31G X 5 MM 05/13/2020 12:00:[address] active [place] 31G X 5 MM eC W1 ([facility]) Tresiba FlexTouch 200 UNIT/ML Tresiba FlexTouch 200 UNIT/ML 05/13/2020 12:00:00 AM EST active Tresiba FlexTouch 200 UNIT/ML eCW1 ([facility]) Tresiba FlexTouch 200 UNIT/ML Tresiba FlexTouch 200 UNIT/ML 05/13/2020 12:00:00 AM EST active Tresiba FlexTouch 200 UNIT/ML eCW1 ([facility]) Tresiba FlexTouch 200 UNIT/ML Tresiba FlexTouch 200 UNIT/ML 05/13/2020 12:00:00 AM EST active Tresiba FlexTouch 200 UNIT/ML eCW1 [facility] 31 gauge x 3/16" 05/13/2020 12:00:00 AM EST needle 30 USE DIRECTED ONCE DAILY USE DIRECTED ONCE DAILY SOLD: 05/17/2020 [facility] Tresiba FlexTouch 200 UNIT/ML Tresiba FlexTouch 200 UNIT/ML 05/13/2020 12:00:00 AM EST active Tresiba FlexTouch 200 UNIT/ML eCW1 [facility]) [place] 31G X 5 MM [place] 31G X 5 MM 05/13/2020 12:00:[address] active [place] 31G X 5 MM eC W1 ([facility]) Tresiba FlexTouch 200 UNIT/ML Tresiba FlexTouch 200 UNIT/ML 05/13/2020 12:00:00 AM EST active Tresiba FlexTouch 200 UNIT/ML eCW1 ([facility]) [place] 31G X 6 MM [place] 31G X 6 MM 05/13/2020 12:00:[address] active [place] 31G X 6 MM eC W1 ([facility]) [place] 31G X 5 MM [place] 31G X 5 MM 05/13/2020 12:00:[address] active [place] 31G X 5 MM eC W1 ([facility]) Tresiba FlexTouch 200 UNIT/ML Tresiba FlexTouch 200 UNIT/ML 05/13/2020 12:00:00 AM EST active Tresiba FlexTouch 200 UNIT/ML eCW1 ([facility]) Tresiba FlexTouch 200 UNIT/ML Tresiba FlexTouch 200 UNIT/ML 05/13/2020 12:00:00 AM EST active Tresiba FlexTouch 200 UNIT/ML eCW1 ([facility]) [place] UNK 05/13/2020 12:00:00 AM EST active [place] eCW1 ([facility]) [place] UNK 05/13/2020 12:00:00 AM EST active [place] eCW1 ([facility]) Pen [place] 31G X 5 MM [place] 31G X 5 MM 05/13/2020 12:00:[address] active [place] 31G X 5 MM eC W1 ([facility]) Tresiba FlexTouch 200 UNIT/ML Tresiba FlexTouch 200 UNIT/ML 05/13/2020 12:00:00 AM EST active Tresiba FlexTouch 200 UNIT/ML eCW1 ([facility]) [place] 31G X 6 MM [place] 31G X 6 MM 05/13/2020 12:00:[address] active [place] 31G X 6 MM eC W1 [facility]) 31 gauge x 3/16" 05/13/2020 12:00:00 AM EST needle 30 USE DIRECTED ONCE DAILY USE DIRECTED ONCE DAILY SOLD: 08/15/2020 [facility] Pen [place] UNK 05/13/2020 12:00:00 AM EST active [place] eCW1 ([facility]) Tresiba FlexTouch 200 UNIT/ML Tresiba FlexTouch 200 UNIT/ML 05/13/2020 12:00:00 AM EST active Tresiba FlexTouch 200 UNIT/ML eCW1 ([facility]) [place] 31G X 6 MM [place] 31G X 6 MM 05/13/2020 12:00:[address] active [place] 31G X 6 MM eC W1 ([facility]) Tresiba FlexTouch 200 UNIT/ML Tresiba FlexTouch 200 UNIT/ML 05/13/2020 12:00:00 AM EST active Tresiba FlexTouch 200 UNIT/ML eCW1 ([facility]) [place] UNK 05/13/2020 12:00:00 AM EST active [place] eCW1 ([facility]) [place] UNK 05/13/2020 12:00:00 AM EST active [place] eCW1 ([facility]) [place] UNK 05/13/2020 12:00:00 AM EST active [place] eCW1 ([facility]) Tresiba FlexTouch 200 UNIT/ML Tresiba FlexTouch 200 UNIT/ML 05/13/2020 12:00:00 AM EST active Tresiba FlexTouch 200 UNIT/ML eCW1 ([facility]) Tresiba FlexTouch 200 UNIT/ML Tresiba FlexTouch 200 UNIT/ML 05/13/2020 12:00:00 AM EST active Tresiba FlexTouch 200 UNIT/ML eCW1 ([facility] 31 gauge x 3/16" 05/13/2020 12:00:00 AM EST needle 30 USE DIRECTED ONCE DAILY USE DIRECTED ONCE DAILY SOLD: 07/16/2020 [facility] [place] UNK 05/13/2020 12:00:00 AM EST active [place] eCW1 ([facility]) [place] 31G X 6 MM [place] 31G X 6 MM 05/13/2020 12:00:[address] active [place] 31G X 6 MM eC W1 ([facility]) [place] 31G X 6 MM [place] 31G X 6 MM 05/13/2020 12:00:[address] active [place] 31G X 6 MM eC W1 ([facility]) Tresiba FlexTouch 200 UNIT/ML Tresiba FlexTouch 200 UNIT/ML 05/13/2020 12:00:00 AM EST active Tresiba FlexTouch 200 UNIT/ML eCW1 ([facility]) [place] 31G X 5 MM [place] 31G X 5 MM 05/13/2020 12:00:[address] active [place] 31G X 5 MM eC W1 ([facility]) 20 mg 04/26/2020 12:00:00 AM EST [...] {tablet} active Torsemide 2 0 MG eCW1 ([facility]) torsemide 10 MG Oral Tablet Torsemide 10 MG Torsemide 10 MG 02/17/2020 12:00:00 AM EDT 1.0 {tablet} active Torsemide 1 0 MG eCW1 ([facility]) torsemide 20 MG Oral Tablet Torsemide 20 MG Torsemide 20 MG 02/17/2020 12:00:00 AM EDT 1.0 {tablet} active Torsemide 2 0 MG eCW1 ([facility]) torsemide 10 MG Oral Tablet Torsemide 10 MG Torsemide 10 MG 02/17/2020 12:00:00 AM EDT 1.0 {tablet} active Torsemide 1 0 MG eCW1 ([facility]) torsemide 20 MG Oral Tablet Torsemide 20 MG Torsemide 20 MG 02/17/2020 12:00:00 AM EDT 1.0 {tablet} active Torsemide 2 0 MG eCW1 ([facility]) torsemide 10 MG Oral Tablet Torsemide 10 MG Torsemide 10 MG 02/17/2020 12:00:00 AM EDT 1.0 {tablet} active Torsemide 1 0 MG eCW1 ([facility]) 10 mg 02/17/2020 12:00:00 AM EDT tablet 30 TAKE ONE TABLET BY MOUTH EVERY DAY TAKE ONE TABLET BY MOUTH EVERY DAY SOLD: 02/17/2020 [facility] torsemide 10 MG Oral Tablet Torsemide 10 MG Torsemide 10 MG 02/17/2020 12:00:00 AM EDT 1.0 {tablet} active Torsemide 1 0 MG eCW1 ([facility]) torsemide 10 MG Oral Tablet Torsemide 10 MG Torsemide 10 MG 02/17/2020 12:00:00 AM EDT 1.0 {tablet} active Torsemide 1 0 MG eCW1 ([facility]) torsemide 10 MG Oral Tablet Torsemide 10 MG Torsemide 10 MG 02/17/2020 12:00:00 AM EDT 1.0 {tablet} active Torsemide 1 0 MG eCW1 ([facility]) 500 mg 02/06/2020 12:00:00 AM EDT tablet extended release 24 hr 30 TAKE 1 TABLET ONCE DAILY WITH EVENING MEAL TAKE 1 TABLET ONCE DAILY WITH EVENING MEAL SOLD: 02/08/2020 [facility] MetFORMIN HCl ER 500 MG MetFORMIN HCl ER 500 MG 02/03/2020 12:00:00 AM EDT 1.0 {tablet_with_evening_meal} active MetF ORMIN HCl ER 500 MG eCW1 ([facility]) MetFORMIN HCl ER 500 MG MetFORMIN HCl ER 500 MG 02/03/2020 12:00:00 AM EDT 1.0 {tablet_with_evening_meal} active MetF ORMIN HCl ER 500 MG eCW1 ([facility]) MetFORMIN HCl ER 500 MG MetFORMIN HCl ER 500 MG 02/03/2020 12:00:00 AM EDT 1.0 {tablet_with_evening_meal} active MetF ORMIN HCl ER 500 MG eCW1 ([facility]) MetFORMIN HCl ER 500 MG MetFORMIN HCl ER 500 MG 02/03/2020 12:00:00 AM EDT 1.0 {tablet_with_evening_meal} active MetF ORMIN HCl ER 500 MG eCW1 ([facility]) MetFORMIN HCl ER 500 MG MetFORMIN HCl ER 500 MG 02/03/2020 12:00:00 AM EDT 1.0 {tablet_with_evening_meal} active MetF ORMIN HCl ER 500 MG eCW1 ([facility]) 24 HR Metformin hydrochloride 500 MG Ext ended Release Oral Tablet MetFORMIN HCl ER 500 MG MetFORMIN HCl ER 500 MG 02/03/2020 12:00:00 AM EDT 1.0 {tablet_with_evening_meal} active MetFO RMIN HCl ER 500 MG [facility] BLOOD SUGAR DIAGNOSTIC 01/23/2020 12:00:00 AM EDT strip 100 USE TWO TIMES A DAY USE TWO TIMES A DAY SOLD: 06/24/2020 [facility] BLOOD SUGAR DIAGNOSTIC 01/23/2020 12:00:00 AM [...] type / Coverage type Policy ID Covered green party ID Covered green party's relationship to katz Policy Katz Plan Information MEDICARE [id number] SP [id number] A MEDICARE [id number] SP [id number] A MEDICARE COMPLETE [id number] SP [id number] MEDICARE COMPLETE [id number] SP [id number] HUNGARIAN PROGRESSIVE [id number] SP [id number] TODAYS OPTIONS [id number] SP [id number] AMER PROG TODAYS OPTIONS G [id number] Self [id number] AMER PROG TODAYS OPTIONS G [id number] Self [id number] [facility] [id number] SP [id number] [employer] [id number] Self [id number] [employer] Commercial [employer] Co. [id number] Nereyda f [id number] ANSI-Health Maintenance Organization (HM O) [id number] ANSI-Medicare Part B [id number] [facility] ( O) [id number] ANSI-Medicare Part B [id number] ANSI-Medicare Part B [id number] ANSI-Medicare Part B [id number] ANSI-Medicare Part B [id number] [facility]-Health Maintenance Organization ( O) [id number] ANSI-Health Maintenance Organization ( O) [id number] ANSI-Medicare Part B [id number] ANSI-Medicare Part B [id number] ANSI-Medicare Part B [id number] ANSI-Medicare Part B [id number] ANSI-Health Maintenance Organization ( O) [id number] ANSI-Medicare Part B [id number] ANSI-Medicare Part B [id number] [facility] ( O) [id number] ANSI-Medicare Part B [id number] ANSI-Health Maintenance Organization ( O) [id number] ANSI-Medicare Part B [id number] ANSI-Medicare Part B [id number] ANSI-Health Maintenance Organization ( O) [id number] ANSI-Medicare Part B [id number] TODAYS OPTIONS [id number] SP [id number] ANSI-Medicare Part B [id number] ANSI-Medicare Part B [id number] ANSI-Medicare Part B [id number] ANSI-Medicare Part B [id number] ANSI-Medicare Part B [id number] ANSI-Medicare Part B [id number] ANSI-Medicare Part B [id number] ANSI-Medicare Part B [id number] ANSI-Medicare Part B [id number] ANSI-Medicare Part B [id number] ANSI-Medicare Part B [id number] ANSI-Medicare Part B [id number] ANSI-Medicare Part B [id number] ANSI-Medicare Part B [id number] ANSI-Medicare Part B [id number] ANSI-Medicare Part B [id number] MEDICAID [id number] SP [id number] MEDICARE [id number] SP [id number] A [facility] [id number] SP [id number] TODAYS OPTIONS/HUNGARIAN O [id number] S [id number] HUNGARIAN PROGRESSIVE [id number] SP [id number] MEDICARE [id number] SP [id number] A MEDICARE COMPLETE [id number] SP [id number] [place]LE [id number] SP [id number] WELLCARE [id number] SP [id number] MEDICARE [id number] SP [id number] WELLCARE O [id number] S [id number] ANSI-Health Maintenance Organization ( O) [id number] ANSI-Medicare Part B [id number] ANSI-Medicare Part B [id number] ANSI-Medicare Part B [id number] ANSI-Medicare Part B [id number] ANSI-Health Maintenance Organization ( O) [id number] ANSI-Medicare Part B [id number] Problems, Conditions, and Diagnoses Code Display Name Description Problem Type Effective Dates Data Source(s) H90.3 [id number] Sensorineural hearing loss (SNHL) of both ears Problem 12/26/2020 12:00:00 AM EDT [facility] L85.3 [id number] Xerosis cutis Problem 09/27/2020 12:00:00 AM EDT [facility] D47.2 [id number] 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) Problem 09/27/2020 12:00:00 AM EDT [facility]CW[facility] G47.33 [id number] Obstructive sleep apnea Problem 09/09/2020 1 2:00:00 AM EDT [facility]CW[facility] G47.33 [id number] MIHIR (obstructive sleep apnea) Problem 08/23/2020 12:00:00 AM EDT eCW1 [facility]) L97.421 [id number] Skin ulcer of left heel, limited to break down of skin Problem 07/11/2020 12:00:00 AM EDT [facility]CW[facility] I67.1 [id number] Internal carotid aneurysm Problem 07/11/2020 12:00:00 AM EDT eCW1 [facility]) H04.123 [id number] Dry eyes, bilateral Problem 07/11/2020 12:00 :00 AM EDT eCW1 [facility] I63.9 [id number] Recurrent cerebrovascular accidents (CVAs ) Problem 07/11/2020 12:00:00 AM EDT eCW1 [facility] 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 infarction Problem 06/27/2020 12:00:00 AM EST NETSMART ([facility]) E11.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 and stage 1 through stage 4 chronic kidney disease, or unspecified chronic kidney disease Hypertensive heart and chronic kidney di sease with heart failure and stage 1 through stage 4 chronic kidney disease, or unspecified chronic kidney disease Problem 06/27/2020 12:00:00 AM EST NETSMART ([facility]) I50.32 Chronic diastolic (congestive) heart sacha lure Chronic diastolic (congestive) heart failure Problem 06/27/2020 12:00:00 AM EST NETSMA RT ([facility]) 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 Problem 06/27/2020 12:00:00 AM EST NETSMART ([facility] ) N18.30 Chronic kidney disease, stage 3 unspecif ied Chronic kidney disease, stage 3 unspecified Problem 06/27/2020 12:00:00 AM EST NETSMART ([facility]) D63.1 Anemia in chronic kidney disease Anemia in chronic kid daniel disease Problem 06/27/2020 12:00:00 AM EST NETSMART ([facility] ) 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, unspecifie d site Gout due to renal impairment, unspecified site Problem 06/27/2020 12:00:00 AM EST NETS MART ([facility]) 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, not intractable, without status epilepticus Localization-related (focal) (partial) s ymptomatic epilepsy and epileptic syndromes with simple partial seizures, not intractable, without status epilepticus Problem 06/27/2020 12:00:00 AM EST NETSMART ([facility]) M47.816 Spondylosis without myelopathy or radicu lopathy, lumbar region Spondylosis without myelopathy or radiculopathy, lumbar region Problem 06/27/2020 12:00:00 AM EST NETSMART ([facility] ) M19.90 Unspecified osteoarthritis, unspecified site Unspecified osteoarthritis, unspecified site Problem 06/27/2020 12:00:00 AM EST NETSMART ([facility]) E53.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 Deficiency of other specified B group vitamins Problem 06/27/2020 12:00:00 AM EST NETSMA RT ([facility]) D50.9 Iron deficiency anemia, unspecified Iron deficie ncy anemia, unspecified Problem 06/27/2020 12:00:00 AM EST NETSMART ([facility]) G47.33 Obstructive sleep apnea (adult) (pediatr ic) Obstructive sleep apnea (adult) (pediatric) Problem 06/27/2020 12:00:00 AM EST NETSMART ([facility]) E66.9 Obesity, unspecified Obesity, unspecified Problem 06/27/2020 12:00:00 AM EST NETSMART ([facility] ) Z87.891 Personal history of nicotine dependence Personal history of nicotine dependence Problem 06/27/2020 12:00:00 AM EST NETSMART ([facility]) 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9, adult Problem 06/27/2020 12:00:00 AM EST NETSMART ([facility]) Z91.81 History of falling History of falling Problem 12:00:00 AM EST NETSMART ([facility]) Z85.46 Personal history of malignant neoplasm o f prostate Personal history of malignant neoplasm of prostate Problem 06/27/2020 12:00:00 AM EST NE MARITZA ([facility]) 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 Gerhard baljeet following cerebral infarction Problem 06/27/2020 12:00:00 AM EST SUDHAKARMART ([facility]) I69.398 Other sequelae of cerebral infarction Ot her sequelae of cerebral infarction Problem 06/23/2020 12:00:00 AM EST NETSMART ([facility]) I82.511 [id number] 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 Problem 03/14/2020 12:00:00 AM EST eCW1 ([facility]) L98.491 [id number] Superficial ulcer of skin Problem 02/16/2020 12:00:00 AM EDT [facility] Surgeries/Procedures Procedure Description Date Indications Data Source(s) OFFICE OUTPATIENT VISIT 15 MINUTES 02/01/2021 12:00:00 AM EDT MEDENT ([facility], ) OFFICE OUTPATIENT NEW 30 MINUTES 10/20/2020 12:00:00 A M EDT MEDENT ([facility], ) Results ID Date Data Source [id number] 07/27/2020 06:49:00 PM EDT [facility] Name Value Range Interpretation Code Description Data Nichole rce(s) Supporting Document(s) SARS-CoV-2 IgG Serum <0.20 AU/mL <1.00 [facility] A result less than 1.00 AU/mL is conside red to be negative. PositiveIgG antibody results are often present later in the infectious process(from 7 days onward). Results will be reported to government agenciesas required.The [employer] SARS-CoV-2 IgG CLIA assay has received EmergencyUse Authorization (EUA). We will continue to follow federal and staterequirements for COVID-19 reporting. This test was developed and itsperformance characteristics determined by [employer]. Ithas not been reviewed, cleared or approved [...] SARS-CoV-2 IgG:Chemiluminescent Immunoassay. ID Date Data Source [id number] 06/22/2020 06:37:00 AM EST [facility] Name Value Range Interpretation Code Description Data Nichole rce(s) Supporting Document(s) SARS coronavirus 2 RNA [Presence] in Res piratory specimen by CHRISTI with probe detection NEGATIVE [facility] This lab was ordered by [facility] a nd reported by [facility]. ID Date Data Source VITAMIN B12 LEVEL 06/17/2020 12:00:00 AM EST eCW1 ([facility]) Name Value Range Interpretation Code Description Data Nichole rce(s) Supporting Document(s) [id number] VITAMIN B12 LEVEL eCW1 ([facility]) ID Date Data Source PSA MONITOR (HX PROSTATE CA/ABNORMAL PSA) 06/17/2020 12:00:0 0 AM EST [facility] Name Value Range Interpretation Code Description Data Nichole rce(s) Supporting Document(s) 18.70 < 4.00 PROSTATIC SPECIFIC AG MON ITOR eCW1 ([facility]) ID Date Data Source Comprehensive Metabolic Profile (CMP) 06/17/2020 12:00:00 AM EST eCW1 [facility]) Name Value Range Interpretation Code Description Data Nichole rce(s) Supporting Document(s) 22 7-18 BLOOD UREA NITROGEN eCW1 ([facility]) 119 70-100 GLUCOSE, FASTING eCW1 ([facility]) 142 136-145 SODIUM LEVEL eCW1 ([facility]) > 60.0 >35 GLOMERULAR FILTRATION RATE eCW 1 ([facility]) 4.2 3.5-5.1 POTASSIUM SERUM eCW1 ([facility]) 0.97 0.70-1.30 CREATININE FOR GFR eCW1 ([facility]) 102 98-107 CHLORIDE LEVEL eCW1 [facility]) 10 7-37 AST/SGOT eCW1 ([facility]) 9.5 8.8-10.2 CALCIUM LEVEL eCW1 ([facility]) 35 21-32 CARBON DIOXIDE LEVEL eCW1 ([facility]) 21 12-78 ALT/SGPT eCW1 ([facility]) 0.4 0.2-1.0 BILIRUBIN,TOTAL eCW1 ([facility]) 6.6 6.4-8.2 TOTAL PROTEIN eCW1 [facility]) 67 45-117 ALKALINE PHOSPHATASE eCW1 ([facility]) 3.3 3.2-5.2 ALBUMIN eCW1 ([facility]) 1.0 ALBUMIN/GLOBULIN RATIO eCW1 ([facility]) ID Date Data Source URIC ACID 06/17/2020 12:00:00 AM EST eCW1 ([facility]) Name Value Range Interpretation Code Description Data Nichole rce(s) Supporting Document(s) 4.3 3.5-7.2 URIC ACID eCW1 ([facility]) ID Date Data Source MAGNESIUM LEVEL 06/17/2020 12:00:00 AM EST eCW1 ([facility]) Name Value Range Interpretation Code Description Data Nichole rce(s) Supporting Document(s) 1.9 1.8-2.4 MAGNESIUM LEVEL eCW1 ([facility]) ID Date Data Source [id number] 06/17/2020 12:00:00 AM EST eCW1 ([facility]) Name Value Range Interpretation Code Description Data Nichole rce(s) Supporting Document(s) Hemoglobin A1c/Hemoglobin.total in Blood 6.9 HEMOGLOBIN A1c eCW1 ([facility]) ID Date Data Source NT-PRO BNP 06/17/2020 12:00:00 AM EST eCW1 ([facility]) Name Value Range Interpretation Code Description Data Nichole rce(s) Supporting Document(s) 361 <450 NT-PRO BNP eCW1 ([facility]) Procedure Social History Code Duration Value Status Description Data Source(s ) Smoking 12/26/2020 12:00:00 AM EDT Former Smoker completed Former Smoker [facility]CW1 [facility]) Smoking 12/26/2020 12:00:00 AM EDT Former Smoker completed Former Smoker eCW1 ([facility]) Smoking 12/26/2020 12:00:00 AM EDT Former Smoker completed Former Smoker eCW1 ([facility]) Smoking 12/26/2020 12:00:00 AM EDT Former Smoker completed Former Smoker eCW1 ([facility]) Smoking 12/26/2020 12:00:00 AM EDT Former Smoker completed Former Smoker eCW1 ([facility]) Smoking 12/26/2020 12:00:00 AM EDT Former Smoker completed Former Smoker eCW1 ([facility]) Smoking 12/26/2020 12:00:00 AM EDT Former Smoker completed Former Smoker eCW1 ([facility]) Smoking 12/26/2020 12:00:00 AM EDT Former Smoker completed Former Smoker eCW1 ([facility]) Smoking 12/26/2020 12:00:00 AM EDT Former Smoker completed Former Smoker eCW1 ([facility]) Smoking 12/26/2020 12:00:00 AM EDT Former Smoker completed Former Smoker eCW1 ([facility]) Smoking 12/26/2020 12:00:00 AM EDT Former Smoker completed Former Smoker eCW1 ([facility]) Smoking 12/26/2020 12:00:00 AM EDT Former Smoker completed Former Smoker eCW1 ([facility]) Smoking 12/26/2020 12:00:00 AM EDT Former Smoker completed Former Smoker eCW1 ([facility]) Smoking 09/27/2020 12:00:00 AM EDT Former Smoker completed Former Smoker eCW1 ([facility]) Smoking 09/27/2020 12:00:00 AM EDT Former Smoker completed Former Smoker eCW1 ([facility]) Smoking 09/27/2020 12:00:00 AM EDT Former Smoker completed Former Smoker eCW1 ([facility]) Smoking 09/27/2020 12:00:00 AM EDT Former Smoker completed Former Smoker eCW1 ([facility]) Smoking 09/27/2020 12:00:00 AM EDT Former Smoker completed Former Smoker eCW1 ([facility]) Smoking 09/27/2020 12:00:00 AM EDT Former Smoker completed Former Smoker eCW1 ([facility]) Smoking 09/27/2020 12:00:00 AM EDT Former Smoker completed Former Smoker eCW1 ([facility]) Smoking 09/27/2020 12:00:00 AM EDT Former Smoker completed Former Smoker eCW1 ([facility]) Smoking 09/09/2020 12:00:00 AM EDT Former Smoker completed Former Smoker eCW1 ([facility]) Smoking 09/09/2020 12:00:00 AM EDT Former Smoker completed Former Smoker eCW1 ([facility]) Smoking 09/09/2020 12:00:00 AM EDT Former Smoker completed Former Smoker eCW1 ([facility]) Smoking 08/23/2020 12:00:00 AM EDT Former Smoker completed Former Smoker eCW1 ([facility]) Smoking 08/23/2020 12:00:00 AM EDT Former Smoker completed Former Smoker eCW1 ([facility]) Smoking 08/23/2020 12:00:00 AM EDT Former Smoker completed Former Smoker eCW1 ([facility]) Smoking 08/23/2020 12:00:00 AM EDT Former Smoker completed Former Smoker eCW1 ([facility]) Smoking 08/23/2020 12:00:00 AM EDT Former Smoker completed Former Smoker eCW1 ([facility]) Smoking 08/23/2020 12:00:00 AM EDT Former Smoker completed Former Smoker eCW1 ([facility]) Smoking 07/11/2020 12:00:00 AM EDT Former Smoker completed Former Smoker eCW1 ([facility]) Smoking 07/11/2020 12:00:00 AM EDT Former Smoker completed Former Smoker eCW1 ([facility]) Smoking 06/30/2020 12:00:00 AM EST Former Smoker completed Former Smoker eCW1 ([facility]) Smoking 06/30/2020 12:00:00 AM EST Former Smoker completed Former Smoker eCW1 ([facility]) Smoking 06/30/2020 12:00:00 AM EST Former Smoker completed Former Smoker eCW1 ([facility]) Smoking 06/30/2020 12:00:00 AM EST Former Smoker completed Former Smoker eCW1 ([facility]) Smoking 06/30/2020 12:00:00 AM EST Former Smoker completed Former Smoker eCW1 ([facility]) Smoking 06/14/2020 12:00:00 AM EST Former Smoker completed Former Smoker eCW1 ([facility]) Smoking 06/14/2020 12:00:00 AM EST Former Smoker completed Former Smoker eCW1 ([facility]) Smoking 06/14/2020 12:00:00 AM EST Former Smoker completed Former Smoker eCW1 ([facility]) Smoking 06/14/2020 12:00:00 AM EST Former Smoker completed Former Smoker eCW1 ([facility]) Smoking 06/14/2020 12:00:00 AM EST Former Smoker completed Former Smoker eCW1 ([facility]) Smoking 06/14/2020 12:00:00 AM EST Former Smoker completed Former Smoker eCW1 ([facility]) Smoking 06/14/2020 12:00:00 AM EST Former Smoker completed Former Smoker eCW1 ([facility]) Smoking 06/02/2020 12:00:00 AM EST Former Smoker completed Former Smoker eCW1 ([facility]) Smoking 03/14/2020 12:00:00 AM EST Former Smoker completed Former Smoker eCW1 ([facility]) Smoking 03/14/2020 12:00:00 AM EST Former Smoker completed Former Smoker eCW1 ([facility]) Smoking 03/14/2020 12:00:00 AM EST Former Smoker completed Former Smoker eCW1 ([facility]) Smoking 03/14/2020 12:00:00 AM EST Former Smoker completed Former Smoker eCW1 ([facility]) Smoking 03/14/2020 12:00:00 AM EST Former Smoker completed Former Smoker eCW1 ([facility]) Smoking 03/14/2020 12:00:00 AM EST Former Smoker completed Former Smoker eCW1 ([facility]) Smoking 03/14/2020 12:00:00 AM EST Former Smoker completed Former Smoker eCW1 ([facility]) Smoking 03/14/2020 12:00:00 AM EST Former Smoker completed Former Smoker eCW1 ([facility]) Smoking 03/14/2020 12:00:00 AM EST Former Smoker completed Former Smoker eCW1 ([facility]) Smoking 03/14/2020 12:00:00 AM EST Former Smoker completed Former Smoker eCW1 ([facility]) Smoking 03/14/2020 12:00:00 AM EST Former Smoker completed Former Smoker eCW1 ([facility]) Smoking 03/03/2020 12:00:00 AM EST Former Smoker completed Former Smoker eCW1 ([facility]) Smoking 03/03/2020 12:00:00 AM EST Former Smoker completed Former Smoker eCW1 ([facility]) Smoking 03/03/2020 12:00:00 AM EST Former Smoker completed Former Smoker [email or web address] Smoking 03/03/2020 12:00:00 AM EST Former Smoker completed Former Smoker [email or web address] Smoking 03/03/2020 12:00:00 AM EST Former Smoker completed Former Smoker [email or web address] Smoking 03/02/2020 12:00:00 AM EST Former Smoker completed Former Smoker [email or web address] Smoking 02/16/2020 12:00:00 AM EDT Former Smoker completed Former Smoker [email or web address] Smoking 02/16/2020 12:00:00 AM EDT Former Smoker completed Former Smoker [email or web address] Smoking 02/16/2020 12:00:00 AM EDT Former Smoker completed Former Smoker [email or web address] ([facility]) Vital Signs ID Date Data Source UNK Name Value Range Interpretation Code Description Data Source(s) Oxygen saturation in Arterial blood by Pulse oximetry 94 % 94 % [email or web address] ([facility] [facility], ) Body height 69 [in_i] 69 [in_i] PADMINI ([facility]) 5'9" Body weight 115.668 kg 115.668 kg [facility] ([facility]) Body weight 255.00 [lb_av] 255.00 [lb_av] MEDEN T ([facility]) Body mass index (BMI) [Ratio] 37.7 kg/m2 37.7 k g/m2 [facility] ([facility]) [place] body weight 160 [lb_av] 160 [lb_av] MEDEN T ([facility]) Body surface area Derived from formula 2.29 m2 2.29 m2 [facility] ([facility]) Systolic blood pressure 130 mm[Hg] 130 mm[Hg] M [facility] Diastolic blood pressure 70 mm[Hg] 70 mm[Hg] [facility] ([facility]) Heart rate 80 /min 80 /min [facility] ([facility]) Body weight 253.6 [lb_av] 253.6 [lb_av] eCW1 ([facility]) Body weight 115.03 kg 115.03 kg W1 ([facility]) Body height 73 [in_i] 73 [in_i] eCW1 ([facility]) Body mass index (BMI) [Ratio] 33.45 kg/m2 33.45 kg/m2 W1 ([facility]) Heart rate 106 /min 106 /min eCW1 ([facility]) Respiratory rate 18 /min 18 /min eCW1 ([facility]) Body temperature 97.8 [degF] 97.8 [degF] eCW1 ( [facility]) Systolic blood pressure 128 mm[Hg] 128 mm[Hg] e CW1 ([facility]) Diastolic blood pressure 74 mm[Hg] 74 mm[Hg] eCW1 ([facility]) Body weight 253.6 [lb_av] 253.6 [lb_av] eCW1 ([facility]) Body weight 115.03 kg 115.03 kg eCW1 ([facility]) Body height 73 [in_i] 73 [in_i] eCW1 ([facility]) Body mass index (BMI) [Ratio] 33.45 kg/m2 33.45 kg/m2 eCW1 ([facility]) Heart rate 106 /min 106 /min eCW1 ([facility]) Respiratory rate 18 /min 18 /min eCW1 ([facility]) Body temperature 97.8 [degF] 97.8 [degF] eCW1 ( [facility]) Systolic blood pressure 128 mm[Hg] 128 mm[Hg] e CW1 ([facility]) Diastolic blood pressure 74 mm[Hg] 74 mm[Hg] eCW1 ([facility]) [place] body weight 160 [lb_av] 160 [lb_av] MEDEN T ([facility], ) Body mass index (BMI) [Ratio] 37.2 kg/m2 37.2 k g/m2 MEDENT ([facility], ) Systolic blood pressure 130 mm[Hg] 130 mm[Hg] M EDENT ([facility], ) Diastolic blood pressure 70 mm[Hg] 70 mm[Hg] MEDENT ([facility], ) Heart rate 114 /min 114 /min [facility] ([facility], ) Oxygen saturation in Arterial blood by Pulse oximetry 94 % 94 % [facility] ([facility], ) Body height 69 [in_i] 69 [in_i] MEDENT ([facility], ) 5'9" Body weight 252.00 [lb_av] 252.00 [lb_av] MEDEN T ([facility], ) Oxygen saturation in Arterial blood by Pulse oximetry 94 % 94 % [facility] ([facility], ) Body height 69 [in_i] 69 [in_i] MEDENT ([facility], ) 5'9" Body weight 252.00 [lb_av] 252.00 [lb_av] MEDEN T ([facility], ) Body mass index (BMI) [Ratio] 37.2 kg/m2 37.2 k g/m2 [facility] ([facility], ) [place] body weight 160 [lb_av] 160 [lb_av] MEDEN T ([facility]) Body weight 114.307 kg 114.307 kg MEDENT ([facility]) Body surface area Derived from formula 2.28 m2 2.28 m2 [facility] Body weight 114.307 kg 114.307 kg [facility] ([facility]) Body surface area Derived from formula 2.28 m2 2.28 m2 [facility] ([facility]) Body weight 254 [lb_av] 254 [lb_av] eCW1 ([facility]) Body height 73 [in_i] 73 [in_i] eCW1 ([facility]) Body mass index (BMI) [Ratio] 33.51 kg/m2 33.51 kg/m2 eCW1 ([facility]) Heart rate 87 /min 87 /min eCW1 ([facility]) Respiratory rate 18 /min 18 /min eCW1 ([facility]) Systolic blood pressure 134 mm[Hg] 134 mm[Hg] e CW1 ([facility]) Diastolic blood pressure 84 mm[Hg] 84 mm[Hg] eCW1 ([facility]) Body weight 253 [lb_av] 253 [lb_av] eCW1 ([facility]) Body height 73 [in_i] 73 [in_i] eCW1 ([facility]) Body mass index (BMI) [Ratio] 33.38 kg/m2 33.38 kg/m2 eCW1 ([facility]) Heart rate 107 /min 107 /min eCW1 ([facility]) Respiratory rate 18 /min 18 /min eCW1 ([facility]) Body temperature 97.4 [degF] 97.4 [degF] eCW1 ( [facility]) Systolic blood pressure 114 mm[Hg] 114 mm[Hg] e CW1 ([facility]) Diastolic blood pressure 72 mm[Hg] 72 mm[Hg] eCW1 ([facility]) Body weight 255.8 [lb_av] 255.8 [lb_av] eCW1 ([facility]) Body height 73 [in_i] 73 [in_i] eCW1 ([facility]) Body mass index (BMI) [Ratio] 33.75 kg/m2 33.75 kg/m2 eCW1 ([facility]) Heart rate 107 /min 107 /min eCW1 ([facility]) Respiratory rate 18 /min 18 /min eCW1 ([facility]) Body temperature 98 [degF] 98 [degF] eCW1 ([facility]) Systolic blood pressure 112 mm[Hg] 112 mm[Hg] e CW1 ([facility]) Diastolic blood pressure 70 mm[Hg] 70 mm[Hg] eCW1 ([facility]) Body weight 249.0 [lb_av] 249.0 [lb_av] eCW1 ([facility]) Body height 73 [in_i] 73 [in_i] eCW1 ([facility]) Body mass index (BMI) [Ratio] 32.85 kg/m2 32.85 kg/m2 eCW1 ([facility]) Heart rate 101 /min 101 /min eCW1 ([facility]) Respiratory rate 18 /min 18 /min eCW1 ([facility]) Body temperature 97.6 [degF] 97.6 [degF] eCW1 ( [facility]) Systolic blood pressure 122 mm[Hg] 122 mm[Hg] e CW1 ([facility]) Diastolic blood pressure 78 mm[Hg] 78 mm[Hg] eCW1 ([facility]) Body weight 243.12 [lb_av] 243.12 [lb_av] eCW1 ([facility]) Body height 73 [in_i] 73 [in_i] eCW1 ([facility]) Body mass index (BMI) [Ratio] 32.07 kg/m2 32.07 kg/m2 eCW1 ([facility]) Heart rate 102 /min 102 /min eCW1 ([facility]) Respiratory rate 18 /min 18 /min eCW1 ([facility]) Body temperature 97.7 [degF] 97.7 [degF] eCW1 ( [facility]) Systolic blood pressure 128 mm[Hg] 128 mm[Hg] e CW1 ([facility]) Diastolic blood pressure 80 mm[Hg] 80 mm[Hg] eCW1 ([facility]) Body weight 255 [lb_av] 255 [lb_av] eCW1 ([facility]) Body height 73 [in_i] 73 [in_i] eCW1 ([facility]) Body mass index (BMI) [Ratio] 33.64 kg/m2 33.64 kg/m2 eCW1 ([facility]) Heart rate 118 /min 118 /min eCW1 ([facility]) Respiratory rate 18 /min 18 /min eCW1 ([facility]) Body temperature 97.2 [degF] 97.2 [degF] eCW1 ( [facility]) Systolic blood pressure 138 mm[Hg] 138 mm[Hg] e CW1 ([facility]) Diastolic blood pressure 80 mm[Hg] 80 mm[Hg] eCW1 ([facility]) Body weight 254 [lb_av] 254 [lb_av] eCW1 ([facility]) Body height 73 [in_i] 73 [in_i] eCW1 ([facility]) Body mass index (BMI) [Ratio] 33.51 kg/m2 33.51 kg/m2 eCW1 ([facility]) Heart rate 119 /min 119 /min eCW1 ([facility]) Respiratory rate 20 /min 20 /min eCW1 ([facility]) Body temperature 97.1 [degF] 97.1 [degF] eCW1 ( [facility]) Systolic blood pressure 120 mm[Hg] 120 mm[Hg] e CW1 ([facility]) Diastolic blood pressure 80 mm[Hg] 80 mm[Hg] eCW1 ([facility]) Body weight 259.4 [lb_av] 259.4 [lb_av] eCW1 ([facility]) Body height 73 [in_i] 73 [in_i] eCW1 ([facility]) Body mass index (BMI) [Ratio] 34.22 kg/m2 34.22 kg/m2 eCW1 ([facility]) Heart rate 95 /min 95 /min eCW1 ([facility]) Respiratory rate 18 /min 18 /min eCW1 ([facility]) Body temperature 96.8 [degF] 96.8 [degF] eCW1 ( [facility]) Systolic blood pressure 138 mm[Hg] 138 mm[Hg] e CW1 ([facility]) Diastolic blood pressure 82 mm[Hg] 82 mm[Hg] eCW1 ([facility]) Body weight 259.4 [lb_av] 259.4 [lb_av] eCW1 ([facility]) Body height 73 [in_i] 73 [in_i] eCW1 ([facility]) Body mass index (BMI) [Ratio] 34.22 kg/m2 34.22 kg/m2 eCW1 ([facility]) Heart rate 95 /min 95 /min eCW1 ([facility]) Respiratory rate 18 /min 18 /min eCW1 ([facility]) Body temperature 96.8 [degF] 96.8 [degF] eCW1 ( [facility]) Systolic blood pressure 138 mm[Hg] 138 mm[Hg] e CW1 ([facility]) Diastolic blood pressure 82 mm[Hg] 82 mm[Hg] eCW1 ([facility]) Body weight 264 [lb_av] 264 [lb_av] eCW1 ([facility]) Body height 73 [in_i] 73 [in_i] eCW1 ([facility]) Body mass index (BMI) [Ratio] 34.83 kg/m2 34.83 kg/m2 eCW1 ([facility]) Heart rate 96 /min 96 /min eCW1 ([facility]) Respiratory rate 22 /min 22 /min eCW1 ([facility]) Body temperature 97.7 [degF] 97.7 [degF] eCW1 ( [facility]) Systolic blood pressure 132 mm[Hg] 132 mm[Hg] e CW1 ([facility]) Diastolic blood pressure 88 mm[Hg] 88 mm[Hg] eCW1 ([facility]) Body weight 260 [lb_av] 260 [lb_av] eCW1 ([facility]) Body height 73 [in_i] 73 [in_i] eCW1 ([facility]) Body mass index (BMI) [Ratio] 34.30 kg/m2 34.30 kg/m2 eCW1 ([facility]) Heart rate 91 /min 91 /min eCW1 ([facility]) Respiratory rate 18 /min 18 /min eCW1 ([facility]) Body temperature 97.4 [degF] 97.4 [degF] eCW1 ( [facility]) Systolic blood pressure 138 mm[Hg] 138 mm[Hg] e CW1 ([facility]) Diastolic blood pressure 80 mm[Hg] 80 mm[Hg] eCW1 ([facility]) Body weight 250 [lb_av] 250 [lb_av] eCW1 ([facility]) Body height 73 [in_i] 73 [in_i] eCW1 ([facility]) Body mass index (BMI) [Ratio] 32.98 kg/m2 32.98 kg/m2 eCW1 ([facility]) Heart rate 91 /min 91 /min eCW1 ([facility]) Respiratory rate 18 /min 18 /min eCW1 ([facility]) Body temperature 97.4 [degF] 97.4 [degF] eCW1 ( [facility]) Systolic blood pressure 138 mm[Hg] 138 mm[Hg] e CW1 ([facility]) Diastolic blood pressure 80 mm[Hg] 80 mm[Hg] eCW1 ([facility]) Patient Treatment Plan of Care Planned Activity Planned Date Details Description Data Source (s) Jarad Schmidte 14 Day Sensor - 02/13/2021 12:00:00 AM EDT eCW1 ([facility]) FreeStyle Ghulam 14 Day Sensor - 02/13/2021 12:00:00 AM EDT eCW1 ([facility]) FreeStyle Ghulam 14 Day Sensor - 02/13/2021 12:00:00 AM EDT eCW1 ([facility]) FreeStyle Ghulam 14 Day Sensor - 02/13/2021 12:00:00 AM EDT eCW1 ([facility]) ammonium lactate 120 MG/ML Topical Cream 09/27/2020 12:00:00 AM EDT eCW1 ([facility]) ammonium lactate 120 MG/ML Topical Cream 09/27/2020 12:00:00 AM EDT eCW1 ([facility]) ammonium lactate 120 MG/ML Topical Cream 09/27/2020 12:00:00 AM EDT eCW1 ([facility]) ammonium lactate 120 MG/ML Topical Cream 09/27/2020 12:00:00 AM EDT eCW1 ([facility]) ammonium lactate 120 MG/ML Topical Cream 09/27/2020 12:00:00 AM EDT eCW1 ([facility]) ammonium lactate 120 MG/ML Topical Cream 09/27/2020 12:00:00 AM EDT eCW1 ([facility]) ammonium lactate 120 MG/ML Topical Cream 09/27/2020 12:00:00 AM EDT eCW1 ([facility]) ammonium lactate 120 MG/ML Topical Cream 09/27/2020 12:00:00 AM EDT eCW1 ([facility]) CPAP mask 09/12/2020 12:00:00 AM EDT e CW1 ([facility]) CPAP mask 09/12/2020 12:00:00 AM EDT e CW1 ([facility]) CPAP mask 09/12/2020 12:00:00 AM EDT e CW1 ([facility]) CPAP mask 09/12/2020 12:00:00 AM EDT e CW1 ([facility]) CPAP mask 09/12/2020 12:00:00 AM EDT e CW1 ([facility]) CPAP mask 09/12/2020 12:00:00 AM EDT e CW1 ([facility]) CPAP mask 09/12/2020 12:00:00 AM EDT e CW1 ([facility]) CPAP mask 09/12/2020 12:00:00 AM EDT e CW1 ([facility]) CPAP mask 09/12/2020 12:00:00 AM EDT e CW1 ([facility]) CPAP mask 09/12/2020 12:00:00 AM EDT e CW1 ([facility]) CPAP mask 09/12/2020 12:00:00 AM EDT e CW1 ([facility]) CPAP mask 09/12/2020 12:00:00 AM EDT e CW1 ([facility]) CPAP Machine 09/12/2020 12:00:00 AM EDT e CW1 ([facility]) CPAP Machine 09/12/2020 12:00:00 AM EDT e CW1 ([facility]) CPAP mask 09/12/2020 12:00:00 AM EDT e CW1 ([facility]) CPAP Machine 09/12/2020 12:00:00 AM EDT e CW1 ([facility]) CPAP mask 09/12/2020 12:00:00 AM EDT e CW1 ([facility]) Polyethylene Glycol 400 4 MG/ML / Propyl meliton glycol 3 MG/ML Ophthalmic Solution [Systane] 06/30/2020 12:00:00 AM EST eCW1 ([facility]) Optifoam Gentle Foam Dressings 06/30/2020 12:00:00 AM EST eCW1 ([facility]) Polyethylene Glycol 400 4 MG/ML / Propyl meliton glycol 3 MG/ML Ophthalmic Solution [Systane] 06/30/2020 12:00:00 AM EST eCW1 ([facility]) Optifoam Gentle Foam Dressings 06/30/2020 12:00:00 AM EST eCW1 ([facility]) Polyethylene Glycol 400 4 MG/ML / Propyl meliton glycol 3 MG/ML Ophthalmic Solution [Systane] 06/30/2020 12:00:00 AM EST eCW1 ([facility]) Optifoam Gentle Foam Dressings 06/30/2020 12:00:00 AM EST eCW1 ([facility]) Polyethylene Glycol 400 4 MG/ML / Propyl meliton glycol 3 MG/ML Ophthalmic Solution [Systane] 06/30/2020 12:00:00 AM EST eCW1 ([facility]) Optifoam Gentle Foam Dressings 06/30/2020 12:00:00 AM EST eCW1 ([facility]) Polyethylene Glycol 400 4 MG/ML / Propyl meliton glycol 3 MG/ML Ophthalmic Solution [Systane] 06/30/2020 12:00:00 AM EST eCW1 ([facility]) Optifoam Gentle Foam Dressings 06/30/2020 12:00:00 AM EST eCW1 ([facility]) Polyethylene Glycol 400 4 MG/ML / Propyl meliton glycol 3 MG/ML Ophthalmic Solution [Systane] 06/30/2020 12:00:00 AM EST eCW1 ([facility]) Polyethylene Glycol 400 4 MG/ML / Propyl meliton glycol 3 MG/ML Ophthalmic Solution [Systane] 06/30/2020 12:00:00 AM EST eCW1 ([facility]) COMPRESSION STOCKINGS 15-20 mmHg 06/27/2020 12:00:00 AM EST eCW1 ([facility]) COMPRESSION STOCKINGS 15-20 mmHg 06/27/2020 12:00:00 AM EST eCW1 ([facility]) COMPRESSION STOCKINGS 15-20 mmHg 06/27/2020 12:00:00 AM EST eCW1 ([facility]) Diclofenac Sodium 1 % 06/27/2020 12:00:00 AM EST NETSMART ([facility]) Ferrous Sulfate 325 (65 Fe) MG 06/27/2020 12:00:00 AM EST NETSMART ([facility]) MetFORMIN HCl 500 MG 06/27/2020 12:00:00 AM EST NETSMART ([facility]) Glimepiride 4 MG 06/27/2020 12:00:00 AM EST NETSMART ([facility]) Vitamin D3 1000 UNIT 06/27/2020 12:00:00 AM EST NETSMART ([facility]) Tresiba FlexTouch 200 UNIT/ML 06/27/2020 12:00:00 AM EST NETSMART ([facility]) Fluticasone Propionate 50 MCG/ACT 06/27/2020 12:00:00 AM EST NETSMART ([facility]) Torsemide 20 MG 06/27/2020 12:00:00 AM EST NETSMART ([facility]) Eliquis 5 MG 06/27/2020 12:00:00 AM EST N ETSMART ([facility]) Potassium Chloride ER 10 MEQ 06/27/2020 12:00:00 AM EST NETSMART ([facility]) Vitamin B12 1000 MCG 06/27/2020 12:00:00 AM EST NETSMART ([facility]) Aspirin EC Adult Low Strength 81 MG 06/27/2020 12:00:00 AM EST NETSMART ([facility]) Omeprazole 40 MG 06/27/2020 12:00:00 AM EST NETSMART ([facility]) Rosuvastatin Calcium 20 MG 06/27/2020 12:00:00 AM EST NETSMART ([facility]) Allopurinol 300 MG 06/27/2020 12:00:00 AM EST NETSMART ([facility]) Pen [place] 31G X 5 MM 05/13/2020 12:00:00 AM EST eCW1 ([facility]) Pen [place] 31G X 5 MM 05/13/2020 12:00:00 AM EST eCW1 ([facility]) Pen [place] 31G X 5 MM 05/13/2020 12:00:00 AM EST eCW1 ([facility]) Pen [place] 31G X 5 MM 05/13/2020 12:00:00 AM EST eCW1 ([facility]) Pen [place] 31G X 6 MM 05/13/2020 12:00:00 AM EST eCW1 ([facility]) Pen [place] 31G X 6 MM 05/13/2020 12:00:00 AM EST eCW1 ([facility]) Pen [place] 31G X 6 MM 05/13/2020 12:00:00 AM EST eCW1 ([facility]) Pen [place] 31G X 5 MM 05/13/2020 12:00:00 AM EST eCW1 ([facility]) Pen [place] 31G X 6 MM 05/13/2020 12:00:00 AM EST eCW1 ([facility]) Pen [place] 31G X 5 MM 05/13/2020 12:00:00 AM EST eCW1 ([facility]) Pen [place] 31G X 6 MM 05/13/2020 12:00:00 AM EST eCW1 ([facility]) Pen [place] 31G X 6 MM 05/13/2020 12:00:00 AM EST eCW1 ([facility]) Pen [place] 31G X 6 MM 05/13/2020 12:00:00 AM EST eCW1 ([facility]) Pen [place] 05/13/2020 12:00:00 AM EST e CW1 ([facility]) Pen [place] 31G X 6 MM 05/13/2020 12:00:00 AM EST eCW1 ([facility]) Tresiba FlexTouch 200 UNIT/ML 05/13/2020 12:00:00 AM EST eCW1 ([facility]) Tresiba FlexTouch 200 UNIT/ML 05/13/2020 12:00:00 AM EST eCW1 ([facility]) Tresiba FlexTouch 200 UNIT/ML 05/13/2020 12:00:00 AM EST eCW1 ([facility]) Pen [place] 05/13/2020 12:00:00 AM EST e CW1 ([facility]) Tresiba FlexTouch 200 UNIT/ML 05/13/2020 12:00:00 AM EST eCW1 ([facility]) Pen [place] 05/13/2020 12:00:00 AM EST e CW1 ([facility]) Tresiba FlexTouch 200 UNIT/ML 05/13/2020 12:00:00 AM EST eCW1 ([facility]) Pen [place] 05/13/2020 12:00:00 AM EST e CW1 ([facility]) Tresiba FlexTouch 200 UNIT/ML 05/13/2020 12:00:00 AM EST eCW1 ([facility]) Pen [place] 05/13/2020 12:00:00 AM EST e CW1 ([facility]) Tresiba FlexTouch 200 UNIT/ML 05/13/2020 12:00:00 AM EST eCW1 ([facility]) Tresiba FlexTouch 200 UNIT/ML 05/13/2020 12:00:00 AM EST eCW1 ([facility]) Pen [place] 05/13/2020 12:00:00 AM EST e CW1 ([facility]) torsemide 20 MG Oral Tablet 02/17/2020 12:00:00 AM EDT eCW1 ([facility]) torsemide 20 MG Oral Tablet 02/17/2020 12:00:00 AM EDT eCW1 ([facility]) torsemide 20 MG Oral Tablet 02/17/2020 12:00:00 AM EDT eCW1 ([facility]) torsemide 10 MG Oral Tablet 02/17/2020 12:00:00 AM EDT eCW1 ([facility]) torsemide 10 MG Oral Tablet 02/17/2020 12:00:00 AM EDT eCW1 ([facility]) torsemide 10 MG Oral Tablet 02/17/2020 12:00:00 AM EDT eCW1 ([facility]) MetFORMIN HCl ER 500 MG 02/03/2020 12:00:00 AM EDT eCW1 ([facility]) MetFORMIN HCl ER 500 MG 02/03/2020 12:00:00 AM EDT eCW1 ([facility]) MetFORMIN HCl ER 500 MG 02/03/2020 12:00:00 AM EDT eCW1 ([facility]) MetFORMIN HCl ER 500 MG 02/03/2020 12:00:00 AM EDT eCW1 ([facility])
--- NOTE | 2021-03-12 20:18 | ECGEPIP ---
[facility] - ED Test Date: 2021-03-12 Pat Name: INA SORIANO Department: Room: - Gender: Male Manager Category: LEIGHANN : 1935 Requested By: KENN Kinsey Order Number: [id number] Reading MD: Kenn Caldwell Measurements Intervals [place] Rate: 90 P: 62 VT: 224 QRS: 3 QRSD: 84 T: 29 QT: 362 QTc: 442 Interpretive Statements Sinus rhythm with 1st degree AV block Low QRS complex voltage in the limb leads Similar to tracing done 11-07-16 but with reduced rate Electronically Signed on 03-12-2021 20:18:25 EST by Kenn Caldwell
[2021-03-12] MEDS: LEVEMIR (INSULIN DETEMIR) 1 UNITS/0.01ML SC SCH (21:00)
[2021-03-12] MEDS: HumaLOG INSULIN (NovoLOG) PER UNIT SC SCH (21:00)
[2021-03-12] MEDS: POTASSIUM CHLORIDE 10MEQ SR TABLET PO SCH (21:00)
[2021-03-12] MEDS: APIXABAN 5 MG TAB (ELIQUIS) PO SCH (21:00)
[2021-03-12] MEDS: OMEPRAZOLE 20 MG CAP PO SCH (21:00)
[2021-03-12] MEDS: ROSUVASTATIN 10 MG TAB (CRESTOR) PO SCH (23:49)
[2021-03-13] MEDS ORDERED: REMDESIVIR 200 MG in NS 250 ML IV ONE ×2
[2021-03-13] MEDS ORDERED: SODIUM CHLORIDE 0.9% INJ 10 ML SYR IV ONE (02:00)
[2021-03-13 02:15] VITALS: BP 154/87
[2021-03-13 02:18] LABS: CK-MB VALUE MASS 1.7 NG/ML (<3.6); MB/CK RELATIVE INDEX 1.04 (< OR =4); TROPONIN I 0.04 NG/ML (< 0.10)
[2021-03-13 04:00] VITALS: BP 151/79
[2021-03-13 08:14] LABS: HEMATOCRIT 41.8 % (42.0-52.0); HEMOGLOBIN 13.5 g/dl (13.5-17.5); LYMPH # 0.7 10^3/uL (1.5-5.0); LYMPH % 19.6 % (24.0-44.0); MEAN CORPUSCULAR HEMOGLOBIN 31.3 pg (27.0-33.0); MEAN CORPUSCULAR HGB CONC 32.3 g/dl (32.0-36.5); MEAN CORPUSCULAR VOLUME 96.8 fl (80.0-96.0); MONO # 0.3 10^3/uL (0.0-0.8); MONO % 7.1 % (2.0-8.0); NEUTROPHILS # 2.7 10^3/uL (1.5-8.5); PLATELET COUNT, AUTOMATED 172 10^3/uL (150-450); RED BLOOD COUNT 4.32 10^6/uL (4.30-6.10); WHITE BLOOD COUNT 3.7 10^3/uL (4.0-10.0)
[2021-03-13 08:39] LABS: ALBUMIN 2.4 GM/DL (3.2-5.2); ALT/SGPT 23 U/L (12-78); BILIRUBIN,DIRECT < 0.1 MG/DL (0.0-0.2); BILIRUBIN,TOTAL 0.2 MG/DL (0.2-1.0); BLOOD UREA NITROGEN 20 MG/DL (7-18); CALCIUM LEVEL 7.9 MG/DL (8.8-10.2); CARBON DIOXIDE LEVEL 33 MEQ/L (21-32); CHLORIDE LEVEL 103 MEQ/L (98-107); CREATININE FOR GFR 1.01 MG/DL (0.70-1.30); GLOMERULAR FILTRATION RATE > 60.0 (>35); GLUCOSE, FASTING 200 MG/DL (70-100); MAGNESIUM LEVEL 2.1 MG/DL (1.8-2.4); MB/CK RELATIVE INDEX 1.48 (< OR =4); POTASSIUM SERUM 4.1 MEQ/L (3.5-5.1); SODIUM LEVEL 141 MEQ/L (136-145); TOTAL PROTEIN 6.1 GM/DL (6.4-8.2); TROPONIN I 0.04 NG/ML (< 0.10)
[2021-03-13] MEDS: ASPIRIN 81MG ENTERIC TABLET PO SCH (08:56)
[2021-03-13] MEDS: APIXABAN 5 MG TAB (ELIQUIS) PO SCH ×2 (08:56→21:26)
[2021-03-13] MEDS: POTASSIUM CHLORIDE 10MEQ SR TABLET PO SCH ×2 (08:56→21:00)
[2021-03-13] MEDS: allopurinoL 300 MG TAB PO SCH (08:56)
[2021-03-13] MEDS: dexameTHASONE 4 MG/ML 1ML VIAL (J1100 PER 1MG) IV SCH (08:57)
[2021-03-13] MEDS: TORSEMIDE 10 MG TABLET PO SCH (08:57)
[2021-03-13] MEDS: HumaLOG INSULIN (NovoLOG) PER UNIT SC SCH ×4 (08:57→20:29)
--- NOTE | 2021-03-13 12:05 | IPNPDOC ---
Text Note Date of Service The patient was seen on 03/13/21. NOTE Subjective: Patient seen and examined at bedside. No acute overnight events reported. Patient voices no new medical complaints this morning. Objective: A/P: 86 y/o male with PMHx including seizures, CVA, HFpEF, a-fib/eliquis, HLD, HTN, MIHIR not on CPAP, GERD, prostate ca s/p radiation, gout, DM2 who presents to ED on 03/12 for evaluation of an ongoing cough for 1 week with positive covid test at outpatient clinic one weeks ago. # acute hypoxic respiratory failure/COVID19 - Patient acutely hypoxic in the ED, requiring 3L nasal canula - CXR shows bilateral PNA - suspicion for superimposed bacterial - procal pending - Continue supplemental o2 titrated to >90% - continue remdesevir/dexamethasone protocol - Combivent for sx relief - Tessalon perles for cough - Tylenol for fevers - trend inflammatory markers #HFpEF - compensated - pt not in acute exacerbation - continue torsemide #A-fib - continue eliquis - pt rate controlled in the ed #DM2 - sliding scale coverage - hypoglycemic protocol #GERD - continue omeprazole #Gout - continue allopurinol #HLD - continue rosuvastatin #Hx of cva - continue asa #DVT prophylaxis - pt on eliquis Disposition: pending clinical improvement, possible discharge in 24-48 hours VS,Nahun, I+O VS, Nahun, I+O Laboratory Tests 03/12/21 17:28 03/13/21 07:54 Vital Signs Date Time Temp Pulse Resp B/P (MAP) Pulse Ox O2 Delivery O2 Flow Rate FiO2 03/13/21 09:00 3.0 03/13/21 04:00 96.8 69 34 151/79 (103) 95 Nasal Cannula I&O- Last 24 Hours up to 6 AM 03/13/21 06:00 Intake Total 420 ml Balance 420 ml BARI PARKER MD Mar 13, 2021 12:05
[2021-03-13 14:00] VITALS: BP 126/77
[2021-03-13 18:41] LABS: CK-MB VALUE MASS 4.6 NG/ML (<3.6); MB/CK RELATIVE INDEX 1.35 (< OR =4); TROPONIN I 0.03 NG/ML (< 0.10)
[2021-03-13 20:00] VITALS: BP 136/85
[2021-03-13] MEDS: ROSUVASTATIN 10 MG TAB (CRESTOR) PO SCH (21:26)
[2021-03-13] MEDS: OMEPRAZOLE 20 MG CAP PO SCH (21:26)
[2021-03-13] MEDS: LEVEMIR (INSULIN DETEMIR) 1 UNITS/0.01ML SC SCH (21:26)
[2021-03-13] MEDS: REMDESIVIR 100 MG in NS 250 ML IV SCH (21:27)
[2021-03-13] MEDS: SODIUM CHLORIDE 0.9% INJ 10 ML SYR IV SCH (21:28)
[2021-03-14] VITALS (7 sets, daily range): BP systolic 123–153; BP diastolic 56–72; O2SAT 90–95
[2021-03-14] MEDS: RAMELTEON 8 MG TAB (ROZEREM) PO PRN (00:16)
[2021-03-14 08:12] LABS: HEMATOCRIT 42.5 % (42.0-52.0); HEMOGLOBIN 13.8 g/dl (13.5-17.5); LYMPH # 0.9 10^3/uL (1.5-5.0); LYMPH % 17.2 % (24.0-44.0); MEAN CORPUSCULAR HEMOGLOBIN 31.5 pg (27.0-33.0); MEAN CORPUSCULAR HGB CONC 32.5 g/dl (32.0-36.5); MONO # 0.5 10^3/uL (0.0-0.8); MONO % 9.9 % (2.0-8.0); NEUTROPHILS # 3.7 10^3/uL (1.5-8.5); NEUTROPHILS % 72.5 % (36.0-66.0); PLATELET COUNT, AUTOMATED 202 10^3/uL (150-450); RED BLOOD COUNT 4.38 10^6/uL (4.30-6.10); WHITE BLOOD COUNT 5.1 10^3/uL (4.0-10.0)
[2021-03-14 08:24] LABS: ALBUMIN 2.5 GM/DL (3.2-5.2); ALT/SGPT 39 U/L (12-78); BILIRUBIN,DIRECT 0.1 MG/DL (0.0-0.2); BILIRUBIN,TOTAL 0.2 MG/DL (0.2-1.0); BLOOD UREA NITROGEN 26 MG/DL (7-18); CALCIUM LEVEL 8.1 MG/DL (8.8-10.2); CARBON DIOXIDE LEVEL 34 MEQ/L (21-32); CHLORIDE LEVEL 103 MEQ/L (98-107); CREATININE FOR GFR 1.04 MG/DL (0.70-1.30); FERRITIN 170 NG/ML (26-388); GLOMERULAR FILTRATION RATE > 60.0 (>35); GLUCOSE, FASTING 149 MG/DL (70-100); LDH LACTATE DEHYDROGENASE 283 U/L (87-241); MAGNESIUM LEVEL 2.1 MG/DL (1.8-2.4); NT-PRO BNP 653 PG/ML (<450); POTASSIUM SERUM 4.4 MEQ/L (3.5-5.1); SODIUM LEVEL 143 MEQ/L (136-145)
[2021-03-14 08:27] LABS: TROPONIN I 0.05 NG/ML (< 0.10)
[2021-03-14 08:34] LABS: INR 1.22; PROTHROMBIN TIME 15.8 SECONDS (12.7-14.5)
[2021-03-14 08:35] LABS: PARTIAL THROMBOPLASTIN TIME 38.9 SECONDS (25.9-37.0)
[2021-03-14] MEDS: ASPIRIN 81MG ENTERIC TABLET PO SCH (09:01)
[2021-03-14] MEDS: APIXABAN 5 MG TAB (ELIQUIS) PO SCH ×2 (09:01→21:34)
[2021-03-14] MEDS: POTASSIUM CHLORIDE 10MEQ SR TABLET PO SCH ×2 (09:01→21:34)
[2021-03-14] MEDS: allopurinoL 300 MG TAB PO SCH (09:01)
[2021-03-14] MEDS: dexameTHASONE 4 MG/ML 1ML VIAL (J1100 PER 1MG) IV SCH (09:02)
[2021-03-14] MEDS: TORSEMIDE 10 MG TABLET PO SCH (09:02)
[2021-03-14] MEDS: HumaLOG INSULIN (NovoLOG) PER UNIT SC SCH ×4 (09:03→21:00)
--- NOTE | 2021-03-14 15:03 | IPNPDOC ---
Date Seen The patient was seen on 03/14/21. Progress Note SUBJECTIVE: Walking test was done today with patient. With exertion he dropped down to 81% on room air is needing to be placed back on oxygen. Patient denies chest pain, n/v/d, abdominal pain. OBJECTIVE: PHYSICAL EXAMINATION: VS: Please see below CONSTITUTIONAL: No acute distress, resting comfortably in bed,AAO x 3. Would become visibly short of breath with increased conversation EYES: PERRLA, EOM intact HENT, MOUTH: Normocephalic, atraumatic, moist mucous membranes NECK: SUPPLE, no JVD, no lymphadenopathy, no carotid bruit CV: Regular rate and rhythm, S1S2 normal, no murmurs/rubs/gallops RESPIRATORY: Rhonchi bilaterally, no rales orwheezes GI: Obese, BS positive in 4 quadrants, soft, nontender, nondistended, no rebound or guarding, no organomegaly : Deferred MUSCULOSKELETAL: Normal ROM. No cyanosis, clubbing, swelling, joint deformity, extremity edema INTEGUMENTARY: Intact, no rashes, no lesions, no erythema NEUROLOGIC: Cranial Nerves II-XII are intact, no focal deficits PSYCHIATRIC: Mood and affect are normal LABS: See below A/P: 86 y/o male with PMHx including seizures, CVA, HFpEF, a-fib/eliquis, HLD, HTN, MIHIR not on CPAP, GERD, prostate ca s/p radiation, gout, DM2 admitted for acute hypoxic respiratory failure secondary to Covid 19. Acute hypoxic respiratory failure 2/2 COVID-19 -Improving slowly ;however, with ambulation he dropped to 80's RA and required O2 placed again. -CXR shows bilateral PNA -Procalcitonin low, low suspicion for superimposed bacterial -Continue supplemental o2 titrated to >90%, remdesevir/dexamethasone protocol, combivent for sx relief, tessalon perles for cough, tylenol for fevers -COVID labs per protocol -Precautions per protocol #HFpEF -Compensated and not currently in acute exacerbation -C/w home meds #A-fib,chronic -Rate controlled -Echo pending -C/w eliquis #DM2 -BS uncontrolled -sliding scale coverage, levemir BID, FS AC/HS , CC diet -hypoglycemic protocol #GERD -Continue omeprazole #Gout -Continue allopurinol #HLD -Continue rosuvastatin #Hx of cva -Continue asa #DVT prophylaxis -Eliquis DISPOSITION: Currently inpatient status. PT: cleared for home when ready for discharge. VS, I&O, 24H, Fishbone Vital Signs/I&O Vital Signs Date Time Temp Pulse Resp B/P (MAP) Pulse Ox O2 Delivery O2 Flow Rate FiO2 03/14/21 14:00 96.6 79 20 128/56 (80) 97 Nasal Cannula 1.0 I&O- Last 24 Hours up to 6 AM 03/14/21 06:00 Intake Total 1680 ml Output Total 2825 ml Balance -1145 ml Laboratory Data 24H LABS Laboratory Tests 2 03/13/21 17:40: Total Creatine Kinase 340H, Creatine Kinase MB 4.6H, Creatine Kinase MB Relative Index 1.35, Troponin I 0.03# 03/13/21 18:11: Bedside Glucose (Misc Panel) 202H 03/13/21 20:24: Bedside Glucose (Misc Panel) 223H 03/14/21 05:55: Bedside Glucose (Misc Panel) 154H 03/14/21 07:38: Immature Granulocyte % (Auto) 0.4, Neutrophils (%) (Auto) 72.5H, Lymphocytes (%) (Auto) 17.2L, Monocytes (%) (Auto) 9.9H, Eosinophils (%) (Auto) 0.0, Basophils (%) (Auto) 0.0, Neutrophils # (Auto) 3.7, Lymphocytes # (Auto) 0.9L, Monocytes # (Auto) 0.5, Eosinophils # (Auto) 0.0, Basophils # (Auto) 0.0, Nucleated Red Blood Cells % (auto) 0.0, Prothrombin Time 15.8H, Prothromb Time International Ratio 1.22, Activated Partial Thromboplast Time 38.9H, Fibrinogen 405, Anion Gap 6L, Glomerular Filtration Rate > 60.0, Calcium Level 8.1L, Magnesium Level 2.1, Ferritin 170, Total Bilirubin 0.2, Direct Bilirubin 0.1, Aspartate Amino Transf (AST/SGOT) 60H, Alanine Aminotransferase (ALT/SGPT) 39, Alkaline Phosphatase 54, Lactate Dehydrogenase 283H, Total Creatine Kinase 439H, Troponin I 0.05#, TI-Nhm-L-Type Natriuretic Peptide 653H, Total Protein 6.0L, Albumin 2.5L, Albumin/Globulin Ratio 0.7, Procalcitonin <0.05 03/14/21 11:38: Bedside Glucose (Misc Panel) 200H CBC/BMP Laboratory Tests 03/14/21 07:38 Microbiology Microbiology 03/12/21 Blood Culture - Preliminary, Resulted No growth after 24 hours . All specim... 03/12/21 Blood Culture - Preliminary, Resulted No growth after 24 hours . All specim... Malka Figueroa MD Mar 14, 2021 15:03
[2021-03-14] MEDS: REMDESIVIR 100 MG in NS 250 ML IV SCH (21:29)
[2021-03-14] MEDS: ROSUVASTATIN 10 MG TAB (CRESTOR) PO SCH (21:33)
[2021-03-14] MEDS: OMEPRAZOLE 20 MG CAP PO SCH (21:34)
[2021-03-14] MEDS: LEVEMIR (INSULIN DETEMIR) 1 UNITS/0.01ML SC SCH (21:35)
[2021-03-14] MEDS: SODIUM CHLORIDE 0.9% INJ 10 ML SYR IV SCH (22:43)
[2021-03-14] MEDS ORDERED: ANALGESIC BALM CRM 3OZ TOP PRN (23:00)
[2021-03-15] VITALS (14 sets, daily range): BP systolic 121–127; BP diastolic 65–72; O2SAT 91–96
[2021-03-15] MEDS: ACETAMINOPHEN TAB 650MG DOSE (2X325MG) PO PRN ×3 (00:02→22:51)
[2021-03-15] MEDS: RAMELTEON 8 MG TAB (ROZEREM) PO PRN (00:09)
[2021-03-15 04:28] LABS: RSV AMPLIFICATION NEGATIVE (NEGATIVE)
[2021-03-15 07:31] LABS: HEMATOCRIT 40.5 % (42.0-52.0); HEMOGLOBIN 13.1 g/dl (13.5-17.5); LYMPH # 0.9 10^3/uL (1.5-5.0); LYMPH % 16.7 % (24.0-44.0); MEAN CORPUSCULAR HEMOGLOBIN 30.8 pg (27.0-33.0); MEAN CORPUSCULAR HGB CONC 32.3 g/dl (32.0-36.5); MEAN CORPUSCULAR VOLUME 95.1 fl (80.0-96.0); MONO # 0.7 10^3/uL (0.0-0.8); MONO % 12.5 % (2.0-8.0); NEUTROPHILS # 3.7 10^3/uL (1.5-8.5); NEUTROPHILS % 70.4 % (36.0-66.0); PLATELET COUNT, AUTOMATED 207 10^3/uL (150-450); RED BLOOD COUNT 4.26 10^6/uL (4.30-6.10); WHITE BLOOD COUNT 5.3 10^3/uL (4.0-10.0)
[2021-03-15 07:56] LABS: BLOOD UREA NITROGEN 28 MG/DL (7-18); CALCIUM LEVEL 8.2 MG/DL (8.8-10.2); CARBON DIOXIDE LEVEL 33 MEQ/L (21-32); CHLORIDE LEVEL 104 MEQ/L (98-107); CREATININE FOR GFR 0.94 MG/DL (0.70-1.30); GLOMERULAR FILTRATION RATE > 60.0 (>35); GLUCOSE, FASTING 137 MG/DL (70-100); POTASSIUM SERUM 4.1 MEQ/L (3.5-5.1); SODIUM LEVEL 141 MEQ/L (136-145)
[2021-03-15] MEDS: HumaLOG INSULIN (NovoLOG) PER UNIT SC SCH ×4 (08:53→20:30)
[2021-03-15] MEDS: LEVEMIR (INSULIN DETEMIR) 1 UNITS/0.01ML SC SCH ×2 (08:53→20:30)
[2021-03-15] MEDS: dexameTHASONE 4 MG/ML 1ML VIAL (J1100 PER 1MG) IV SCH (08:53)
[2021-03-15] MEDS: TORSEMIDE 10 MG TABLET PO SCH (08:54)
[2021-03-15] MEDS: allopurinoL 300 MG TAB PO SCH (08:54)
[2021-03-15] MEDS: ASPIRIN 81MG ENTERIC TABLET PO SCH (08:54)
[2021-03-15] MEDS: POTASSIUM CHLORIDE 10MEQ SR TABLET PO SCH ×2 (08:54→20:22)
[2021-03-15] MEDS: APIXABAN 5 MG TAB (ELIQUIS) PO SCH ×2 (08:54→20:22)
--- NOTE | 2021-03-15 14:14 | IPNPDOC ---
Date Seen The patient was seen on 03/15/21. Progress Note SUBJECTIVE: Walking test was done today with patient again, PT states cleared with her no issues. O2 remained 88-92% with 1 L O2 while ambulating and he will need to go home with O2. Echocardiogram was done and was reviewed. Patient denies chest pain, n/v/d, abdominal pain. OBJECTIVE: PHYSICAL EXAMINATION: VS: Please see below CONSTITUTIONAL: No acute distress, resting comfortably in bed,AAO x 3. EYES: PERRLA, EOM intact HENT, MOUTH: Normocephalic, atraumatic, moist mucous membranes NECK: SUPPLE, no JVD, no lymphadenopathy, no carotid bruit CV: Regular rate and rhythm, S1S2 normal, no murmurs/rubs/gallops RESPIRATORY: mild improved rhonchi bilaterally, no rales or wheezes GI: Obese, BS positive in 4 quadrants, soft, nontender, nondistended, no rebound or guarding, no organomegaly : Deferred MUSCULOSKELETAL: Normal ROM. No cyanosis, clubbing, swelling, joint deformity, extremity edema INTEGUMENTARY: Intact, no rashes, no lesions, no erythema NEUROLOGIC: Cranial Nerves II-XII are intact, no focal deficits PSYCHIATRIC: Mood and affect are normal LABS: See below IMAGING: Echocardiogram: 1. Normal global left ventricular systolic function. Not mentioned above, the reare some features of grade 1 left ventricular diastolic dysfunction manifested by abnormal relaxation. 2. Aortic valve sclerosis with trace aortic regurgitation and trivial aortic stenosis. 3. Isolated mitral annular calcification without evidence of significant mitralregurgitation or significant mitral stenosis. 4. Trace pulmonic regurgitation. 5. A sigmoid appearance of the basal ventricular septum was noted, a benign finding. 6. A bubble study was done, but was limited; however, there was no evidence of passage of bubbles from the right heart chambers to the left. A/P: 86 y/o male with PMHx including seizures, CVA, HFpEF, a-fib/eliquis, HLD, HTN, MIHIR not on CPAP, GERD, prostate ca s/p radiation, gout, DM2 admitted for acute hypoxic respiratory failure secondary to Covid 19. Acute hypoxic respiratory failure 2/2 COVID-19 -Improving slowly ;however, with ambulation drops O2 sat. O2 dropped < 88% with ambulation on RA, placed on 1 Liter and remained between 88-92% -CXR shows bilateral PNA -Procalcitonin low, low suspicion for superimposed bacterial -Continue supplemental o2 titrated to >90%, remdesevir/dexamethasone protocol, combivent for sx relief, tessalon perles for cough, tylenol for fevers -COVID labs per protocol -Precautions per protocol -Plan is likely d/c 03/16/21 with home O2 #HFpEF -Compensated and not currently in acute exacerbation -Echocardiogram above, abnormal -C/w home meds -Will need f/u with cardiology as outpatient. Attempting to find his current cook candy #A-fib,chronic -Rate controlled -Echo above -C/w eliquis #DM2 -BS uncontrolled -sliding scale coverage, levemir BID, FS AC/HS , CC diet -hypoglycemic protocol #GERD -Continue omeprazole #Gout -Continue allopurinol #HLD -Continue rosuvastatin #Hx of cva -Continue asa #DVT prophylaxis -Eliquis DISPOSITION: Currently inpatient status. PT: cleared for home when ready for discharge. Will need home O2 at discharge. Updated patient's daughter Sara today on plan for discharge. VS, I&O, 24H, [place] Vital Signs/I&O Vital Signs Date Time Temp Pulse Resp B/P (MAP) Pulse Ox O2 Delivery O2 Flow Rate FiO2 03/15/21 07:00 96 Nasal Cannula 2.0 03/15/21 04:00 96.9 62 19 127/72 (90) I&O- Last 24 Hours up to 6 AM 03/15/21 06:00 Intake Total 1525 ml Output Total 1800 ml Balance -275 ml Laboratory Data 24H LABS Laboratory Tests 2 03/14/21 16:42: Bedside Glucose (Misc Panel) 257H 03/14/21 20:22: Bedside Glucose (Misc Panel) 163H 03/15/21 03:31: Coronavirus (COVID-19)(PCR) POSITIVEA, Influenza Type A (RT-PCR) NEGATIVE, Influenza Type B (RT-PCR) NEGATIVE, Respiratory Syncytial Virus (PCR) NEGATIVE 03/15/21 05:56: Bedside Glucose (Misc Panel) 132H 03/15/21 07:08: Immature Granulocyte % (Auto) 0.4, Neutrophils (%) (Auto) 70.4H, Lymphocytes (%) (Auto) 16.7L, Monocytes (%) (Auto) 12.5H, Eosinophils (%) (Auto) 0.0, Basophils (%) (Auto) 0.0, Neutrophils # (Auto) 3.7, Lymphocytes # (Auto) 0.9L, Monocytes # (Auto) 0.7, Eosinophils # (Auto) 0.0, Basophils # (Auto) 0.0, Nucleated Red Blood Cells % (auto) 0.0, Anion Gap 4L, Glomerular Filtration Rate > 60.0, Uric Acid 5.1, Calcium Level 8.2L, Magnesium Level 2.0 03/15/21 11:36: Bedside Glucose (Misc Panel) 268H CBC/BMP Laboratory Tests 03/15/21 07:08 Microbiology Microbiology 03/12/21 Blood Culture - Preliminary, Resulted No Growth after 48 hours. All Specime... 03/12/21 Blood Culture - Preliminary, Resulted No Growth after 48 hours. All Specime... Malka Figueroa MD Mar 15, 2021 14:14
[2021-03-15] MEDS: OMEPRAZOLE 20 MG CAP PO SCH (20:22)
[2021-03-15] MEDS: ROSUVASTATIN 10 MG TAB (CRESTOR) PO SCH (20:22)
[2021-03-16] VITALS: O2SAT 93
[2021-03-16 04:01] VITALS: O2SAT 93
[2021-03-16 06:00] VITALS: BP 134/67
[2021-03-16 06:29] LABS: EOS % 0.3 % (0.0-3.0); HEMATOCRIT 42.5 % (42.0-52.0); HEMOGLOBIN 13.7 g/dl (13.5-17.5); LYMPH # 1.2 10^3/uL (1.5-5.0); LYMPH % 21.6 % (24.0-44.0); MEAN CORPUSCULAR HEMOGLOBIN 31.4 pg (27.0-33.0); MEAN CORPUSCULAR HGB CONC 32.2 g/dl (32.0-36.5); MEAN CORPUSCULAR VOLUME 97.5 fl (80.0-96.0); MONO # 0.8 10^3/uL (0.0-0.8); MONO % 13.4 % (2.0-8.0); NEUTROPHILS # 3.7 10^3/uL (1.5-8.5); NEUTROPHILS % 64.4 % (36.0-66.0); PLATELET COUNT, AUTOMATED 229 10^3/uL (150-450); RED BLOOD COUNT 4.36 10^6/uL (4.30-6.10); WHITE BLOOD COUNT 5.7 10^3/uL (4.0-10.0)
[2021-03-16 06:42] LABS: INR 1.25; PROTHROMBIN TIME 16.1 SECONDS (12.7-14.5)
[2021-03-16 06:43] LABS: PARTIAL THROMBOPLASTIN TIME 35.3 SECONDS (25.9-37.0)
[2021-03-16 06:56] LABS: ALBUMIN 2.4 GM/DL (3.2-5.2); ALT/SGPT 52 U/L (12-78); BILIRUBIN,DIRECT 0.2 MG/DL (0.0-0.2); BILIRUBIN,TOTAL 0.3 MG/DL (0.2-1.0); BLOOD UREA NITROGEN 29 MG/DL (7-18); CALCIUM LEVEL 8.6 MG/DL (8.8-10.2); CARBON DIOXIDE LEVEL 40 MEQ/L (21-32); CHLORIDE LEVEL 99 MEQ/L (98-107); FERRITIN 124 NG/ML (26-388); GLOMERULAR FILTRATION RATE > 60.0 (>35); GLUCOSE, FASTING 169 MG/DL (70-100); LDH LACTATE DEHYDROGENASE 284 U/L (87-241); MAGNESIUM LEVEL 2.1 MG/DL (1.8-2.4); NT-PRO BNP 694 PG/ML (<450); POTASSIUM SERUM 4.1 MEQ/L (3.5-5.1); SODIUM LEVEL 141 MEQ/L (136-145); TOTAL PROTEIN 6.3 GM/DL (6.4-8.2)
[2021-03-16 06:59] LABS: TROPONIN I 0.02 NG/ML (< 0.10)
[2021-03-16] MEDS ORDERED: PRED10TA2 PO (07:09)
[2021-03-16] MEDS ORDERED: PROAAER10 INH (07:09)
[2021-03-16] MEDS ORDERED: predniSONE 20 MG TAB PO ONE (07:30)
[2021-03-16] MEDS: LEVEMIR (INSULIN DETEMIR) 1 UNITS/0.01ML SC SCH (08:19)
[2021-03-16] MEDS: ASPIRIN 81MG ENTERIC TABLET PO SCH (08:19)
[2021-03-16] MEDS: allopurinoL 300 MG TAB PO SCH (08:19)
[2021-03-16] MEDS: HumaLOG INSULIN (NovoLOG) PER UNIT SC SCH ×2 (08:19→12:12)
[2021-03-16] MEDS: TORSEMIDE 10 MG TABLET PO SCH (08:19)
[2021-03-16] MEDS: POTASSIUM CHLORIDE 10MEQ SR TABLET PO SCH (08:20)
[2021-03-16] MEDS: APIXABAN 5 MG TAB (ELIQUIS) PO SCH (08:20)
--- NOTE | 2021-03-16 20:32 | DS.PDOC ---
Discharge Summary General Date of Admission Mar 12, 2021 at 18:59 Date of Discharge 03/16/21 Attending Physician: Malka Figueroa MD Discharge Summary PROCEDURES PERFORMED DURING STAY: None ADMITTING DIAGNOSES: Acute hypoxic respiratory failure secondary to COVID19 HfPEF A-fib DM2 GERD Gout HLD Hx of cva DISCHARGE DIAGNOSES: Acute hypoxic respiratory failure secondary to COVID19 HfPEF A-fib DM2 GERD Gout HLD Hx of cva COMPLICATIONS/CHIEF COMPLAINT: Acute Hypoxemic Respiratory Failure Due To Covid19. HISTORY OF PRESENT ILLNESS: This is an 86 y/o male with a pmh of seizures, cva, HFpEF, a-fib on eliquis, hld, htn, anisha not on cpap, gerd, prostate ca s/p radiation, gout, dm2 who presents to our ED on 03/12 for evaluation of an ongoing cough for 1 week with positive covid test at outpatient clinic one week ago. Patient tells me that he does not feel his symptoms are very severe and states besides his cough he "feels great." Patient states that his cough is sometimes productive of clear- white sputum. Patient, at the time of my exam, denies any fevers, chills, chest pain, sob, wheezing, chest tightness, abd pain, n/v/d/c, pedal edema, calf pain. HOSPITAL COURSE: During his hospitalization, patient was treated for the below issues: Acute hypoxic respiratory failure 2/2 COVID-19 -Improving slowly ;however, with ambulation drops O2 sat. O2 dropped < 88% with ambulation on RA, placed on 1 Liter and remained between 88-92%. Will keep on O2 for discharge -CXR shows bilateral PNA -Procalcitonin low, low suspicion for superimposed bacterial -Discharge home today with prednisone taper, inhaler, supplemental O2 #HFpEF -Compensated and not currently in acute exacerbation -Echocardiogram done- see chart -C/w home meds -Will need f/u with cardiology as outpatient. He currently does not have one. #A-fib,chronic -Rate controlled -Echo above -C/w eliquis #DM2 -C/w home medications #GERD -Continue omeprazole #Gout -Continue allopurinol #HLD -Continue rosuvastatin #Hx of cva -Continue asa DISCHARGE MEDICATIONS: Please see below. ALLERGIES: Please see below. PHYSICAL EXAMINATION ON DISCHARGE: VS: Please see below CONSTITUTIONAL: No acute distress, resting comfortably in bed,AAO x 3. EYES: PERRLA, EOM intact HENT, MOUTH: Normocephalic, atraumatic, moist mucous membranes NECK: SUPPLE, no JVD, no lymphadenopathy, no carotid bruit CV: Regular rate and rhythm, S1S2 normal, no murmurs/rubs/gallops RESPIRATORY: mild improved rhonchi bilaterally, no rales or wheezes GI: Obese, BS positive in 4 quadrants, soft, nontender, nondistended, no rebound or guarding, no organomegaly : Deferred MUSCULOSKELETAL: Normal ROM. No cyanosis, clubbing, swelling, joint deformity, extremity edema INTEGUMENTARY: Intact, no rashes, no lesions, no erythema NEUROLOGIC: Cranial Nerves II-XII are intact, no focal deficits PSYCHIATRIC: Mood and affect are normal LABS: See below PROGNOSIS: Good ACTIVITY: As tolerated with walker DIET: 2 gm sodium DISPOSITION: 06 Home Health Service. DISCHARGE INSTRUCTIONS/ ITEMS TO FOLLOWUP ON ON OUTPATIENT: 1. Follow up with PCP after discharge. 2. Will need outpatient cardiology referral made by primary care provider. DISCHARGE CONDITION: Stable TIME SPENT ON DISCHARGE: 35 minutes. Vital Signs/I&Os Vital Signs Date Time Temp Pulse Resp B/P (MAP) Pulse Ox O2 Delivery O2 Flow Rate FiO2 03/16/21 08:00 2.0 03/16/21 06:00 96.6 73 21 134/67 (89) 95 Nasal Cannula I&O- Last 24 Hours up to 6 AM 03/16/21 06:00 Intake Total 1400 ml Output Total 2900 ml Balance -1500 ml Laboratory Data Labs 24H Laboratory Tests 2 03/16/21 05:53: Immature Granulocyte % (Auto) 0.3, Neutrophils (%) (Auto) 64.4, Lymphocytes (%) (Auto) 21.6L, Monocytes (%) (Auto) 13.4H, Eosinophils (%) (Auto) 0.3, Basophils (%) (Auto) 0.0, Neutrophils # (Auto) 3.7, Lymphocytes # (Auto) 1.2L, Monocytes # (Auto) 0.8, Eosinophils # (Auto) 0.0, Basophils # (Auto) 0.0, Nucleated Red Blood Cells % (auto) 0.0, Prothrombin Time 16.1H, Prothromb Time International Ratio 1.25, Activated Partial Thromboplast Time 35.3, Fibrinogen 400, Anion Gap 2L, Glomerular Filtration Rate > 60.0, Calcium Level 8.6L, Magnesium Level 2.1, Ferritin 124, Total Bilirubin 0.3, Direct Bilirubin 0.2, Aspartate Amino Transf (AST/SGOT) 59H, Alanine Aminotransferase (ALT/SGPT) 52, Alkaline Phosphatase 60, Lactate Dehydrogenase 284H, Total Creatine Kinase 267, Troponin I 0.02#, AD-Sjg-E-Type Natriuretic Peptide 694H, Total Protein 6.3L, Albumin 2.4L, Albumin/Globulin Ratio 0.6, Procalcitonin <0.05 03/16/21 11:35: Bedside Glucose (Misc Panel) 267H CBC/BMP Laboratory Tests 03/16/21 05:53 FSBS Laboratory Tests Test 03/16/21 11:35 Range/Units Bedside Glucose (Misc Panel) 267 83-110 MG/DL Microbiology Microbiology 03/12/21 Blood Culture - Preliminary, Resulted No Growth after 72 hours. All specime... 03/12/21 Blood Culture - Preliminary, Resulted No Growth after 72 hours. All specime... Discharge Medications Scheduled Apixaban (Eliquis) 5 Mg Tablet, 5 MG PO BID, (Reported) Aspirin (Aspirin EC) 81 Mg Tablet.dr, 81 MG PO DAILY, (Reported) Cholecalciferol (Vitamin D3) (Vitamin D3) 1,000 Unit Tablet, 5,000 UNITS PO QHS, (Reported) Cyanocobalamin (Vitamin B-12) (Vitamin B-12) 1,000 Mcg Tablet, 1,000 MCG PO DAILY, (Reported) Ferrous Sulfate (Ferrous Sulfate) 325 Mg Tablet, 325 MG PO QHS, (Reported) Glimepiride (Glimepiride) 4 Mg Tablet, 4 MG PO BID, (Reported) Insulin Degludec (Tresiba Flextouch U-200) 200 Unit/1 Ml Insuln.pen, 10 UNIT SQ QHS, (Reported) Metformin HCl (Metformin HCl ER) 500 Mg Tab.er.24h, 500 MG PO BID, (Reported) Omeprazole (Omeprazole) 40 Mg Capsule.dr, 40 MG PO QHS, (Reported) Potassium Chloride (Potassium Chloride) 10 Meq Tab.er.prt, 10 MEQ PO BID, (Reported) Prednisone (Prednisone) 10 Mg Tablet, 40 MG PO TAPER Take 4 tabs daily x 3 days, then 3 tabs daily x 3 days, then 2 tabs daily x 3 days, then 1 tab daily x 3 days and stop Rosuvastatin Calcium (Rosuvastatin Calcium) 20 Mg Tablet, 20 MG PO QHS, (Reported) Torsemide (Torsemide) 20 Mg Tablet, 30 MG PO DAILY, (Reported) allopurinoL (allopurinoL) 300 Mg Tablet, 300 MG PO DAILY, (Reported) Scheduled PRN Albuterol Sulfate (Proair Hfa) 8.5 Gm Hfa.aer.ad, 2 PUFF INH Q4HP PRN for WHEEZING Diclofenac Sodium (Diclofenac Sodium) 1% 100GM Gel..gram., 1 APPLIC TOP QID PRN for PAIN LEVEL 1-4, (Reported) APPLY TO RIGHT KNEE AND RIGHT INDEX FINGER Fluticasone Propionate (Fluticasone Propionate) 16 Gm [place].susp, 2 SPRAY NARES DAILY PRN for ALLERGIES, (Reported) Allergies Coded Allergies: No Known Allergies (Verified , 10/10/04) Malka Figueroa MD Mar 16, 2021 20:32
--- NOTE | 2021-03-17 09:25 | ECHO ---
ECHOCARDIOGRAM DATE OF PROCEDURE: 03/14/2021 Age: Gender: Height: Weight: Body Surface Area: Inpatient: REFERRING PHYSICIAN: INDICATION: MEASUREMENTS: 2D Measurements: RV 3.6 cm LV 4.9 cm Septum 1.3 cm Posterior wall 1.2 cm Aortic Root 4.0 cm LA 4.2 cm LVEF 50-55% Doppler Measurements: AV 1.32 m/s LVOT off by more than 20 degrees LVOT diameter 1.8 cm MV-E 88, A 95, E/A ratio 0.9 Early mitral deceleration time 251 ms E prime medial 5, A prime medial 10, E prime lateral 5 Average E/E prime ratio 17.6/PCWP 23.7 mmHg PV 0.75 m/s Pulmonary artery acceleration time 129 ms PASP 24 mmHg IVC 1.7 cm COMMENTS: Normal sinus rhythm without intraventricular conduction disturbance. Technically difficult study to interpret possibly in light of the patient's body habitus, but also the experience of the scalping 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. M-Mode and Two Dimensional Echocardiography was performed with pulse, continuous wave, color flow, and tissue Doppler studies. Borderline concentric left ventricular hypertrophy with slightly sluggish wall motion, ejection fraction of 50-55%. Mildly dilated left atrium with grade 1 LV diastolic dysfunction and current estimated mean left atrial pressure mildly increased. Normal right heart chamber sizes and motion and current estimated pulmonary arterial pressure. Normal inferior vena cava (IVC) size and collapse against an elevated central venous pressure. Borderline dilated aortic root. Moderate aortic valvular sclerosis without stenosis and only very mild insufficiency. Moderate mitral annular calcification but adequate leaflet excursion and no posterior systolic buckling. No more than trace insufficiency. Normal-appearing tricuspid valve with very mild insufficiency. No apparent intracardiac mass. Miniscule posterior pericardial effusion measuring perhaps 2 mm. Comparing the above test findings with February 2020 and May of this year, there did not appear to be a dramatic change. A preliminary report of this study has been relayed to Dr. Figueroa. ITZEL
== END 2021-03-16 16:20 | disposition home health service (06) | DRG 177 ==
LOC: EDBD 17:00 → M ED 17:00 → M ED INP 18:59 → ENRESERV 03-13 01:05 → M 4MAIN 03-13 02:15
PROVIDERS: ADMIT Family Medicine; ATTEND Internal Medicine
PROC: XW033E5 Introduction of Remdesivir Anti-infective into Peripheral Vein, Percutaneous Approach, New Technology Group 5 (ICD-10-PCS; principal; 2021-03-12)
PROC: 3E0333Z Introduction of Anti-inflammatory into Peripheral Vein, Percutaneous Approach (ICD-10-PCS; 2021-03-12)
DX: U07.1 COVID-19 (principal); J96.01 Acute respiratory failure with hypoxia; J12.82 Pneumonia due to coronavirus disease 2019; I50.32 Chronic diastolic (congestive) heart failure; I48.20 Chronic atrial fibrillation, unspecified; R56.9 Unspecified convulsions; E11.65 Type 2 diabetes mellitus with hyperglycemia; E78.5 Hyperlipidemia, unspecified; M10.9 Gout, unspecified; G47.33 Obstructive sleep apnea (adult) (pediatric); K21.9 Gastro-esophageal reflux disease without esophagitis; I11.0 Hypertensive heart disease with heart failure; Z66 Do not resuscitate; Z85.46 Personal history of malignant neoplasm of prostate; Z86.73 Personal history of transient ischemic attack (TIA), and cerebral infarction without residual deficits; Z92.3 Personal history of irradiation; Z87.891 Personal history of nicotine dependence; Z79.01 Long term (current) use of anticoagulants; Z79.82 Long term (current) use of aspirin; Z79.4 Long term (current) use of insulin; Z79.899 Other long term (current) drug therapy

== ENCOUNTER 2021-03-19 15:27 | Inpatient (IN) | payer MEDICARE, OTHER ==
[~2021-03-19] VITALS: Ht 182.9 cm; Wt 109.0 kg
[~2021-03-19 15:27] MED LIST changes: +ALLO300T2 PO; +DICL1GEL3 TOP; +PRED10TA2 PO; +PROAAER10 INH
[2021-03-19] MEDS ORDERED: NS 500 ML IV ONE (15:50)
[2021-03-19 16:18] LABS: BASO % 0.1 % (0.0-1.0); HEMATOCRIT 45.4 % (42.0-52.0); HEMOGLOBIN 14.7 g/dl (13.5-17.5); LYMPH # 0.5 10^3/uL (1.5-5.0); LYMPH % 4.2 % (24.0-44.0); MEAN CORPUSCULAR HEMOGLOBIN 30.9 pg (27.0-33.0); MEAN CORPUSCULAR HGB CONC 32.4 g/dl (32.0-36.5); MEAN CORPUSCULAR VOLUME 95.6 fl (80.0-96.0); MONO # 0.5 10^3/uL (0.0-0.8); MONO % 4.4 % (2.0-8.0); NEUTROPHILS # 9.6 10^3/uL (1.5-8.5); NEUTROPHILS % 90.6 % (36.0-66.0); PLATELET COUNT, AUTOMATED 343 10^3/uL (150-450); RED BLOOD COUNT 4.75 10^6/uL (4.30-6.10); WHITE BLOOD COUNT 10.6 10^3/uL (4.0-10.0)
[2021-03-19 16:55] LABS: ALBUMIN 2.6 GM/DL (3.2-5.2); BILIRUBIN,DIRECT 0.2 MG/DL (0.0-0.2); BILIRUBIN,TOTAL 0.4 MG/DL (0.2-1.0); CALCIUM LEVEL 8.6 MG/DL (8.8-10.2); CREATININE FOR GFR 1.7 MG/DL (0.70-1.30); GLOMERULAR FILTRATION RATE 40.7 (>35); POTASSIUM SERUM 4.2 MEQ/L (3.5-5.1); THYROID STIMULATING HORMONE 0.564 uIU/ML (0.358-3.740); TOTAL PROTEIN 6.5 GM/DL (6.4-8.2)
--- OUTSIDE RECORDS SUMMARY | 2021-03-19 17:01 | CCD ---
Author Author [facility] Organization [facility] Address Unknown Phone Unavailable Care Team Providers Care Water Use Inspector Name Role Phone Landen Dyson Unavailable PROBLEMS Type Condition ICD9-CM Code [id number] Code Onset Dates Condition S tatus W/U Status Risk SNOMED Code Notes Problem DJD (degenerative joint disease), 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 Active confirmed 706990228 Problem Hyperlipidemia E78.5 Active confirmed 10211 004 Problem Vitamin B12 deficiency E53.8 Active confirmed 461388898 Problem Vitamin D deficiency E55.9 Active confirmed 03219291 Problem GERD (gastroesophageal reflux disease) K21.9 A ctive confirmed 874674023 Problem Primary osteoarthritis of both knees M17.0 Act jasen confirmed 868471602 Problem CKD (chronic kidney disease) stage 3, GFR 30-59 ml/min N18.3 Active confirmed 617296873 Problem 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.511 Active confirmed [id number] Problem Non-seasonal allergic rhinitis, unspecified trigger J30.89 Active confirmed 53619959 Problem Essential (primary) hypertension I10 Active conf irmed 25296007 Problem Chronic diastolic (congestive) heart failure I50.3 2 Active confirmed 290098389 Problem 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.8 Active confirmed 965948967 Problem Gout M10.9 Active confirmed 40798877 Problem Mild dementia F03.90 Active confirmed 851225 114062980 Problem Ataxia R27.0 Active confirmed 82472926 Problem 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 Active confirmed 230 104807 Problem Seizure disorder G40.909 Active confirmed 12 6856613 Problem PVD (peripheral vascular disease) I73.9 Active confirmed 906266089 Problem Iron deficiency anemia, unspecified iron deficiency an emia type D50.9 Active confirmed 25518723 Problem 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 Active confirmed 038516032 Problem Dry eyes, bilateral H04.123 Active confirmed 113771339 Problem 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 Active confirmed 92351004 Problem Obstructive sleep apnea G47.33 Active confirmed 30706373 Problem 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 Active confirmed 394385382 Problem Sensorineural hearing loss (SNHL) of both ears H90 .3 Active confirmed 680469476 Problem Overweight E66.3 Active confirmed 189955470 Problem Prostate cancer C61 Active confirmed 3990 61787 Problem Skin ulcer of left heel, limited to breakdown of skin L97.421 Active confirmed 285549633 Problem 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 Active confirmed 039401999 Problem Xerosis cutis L85.3 Active confirmed 270942 00 Problem MIHIR (obstructive sleep apnea) G47.33 Active confirm ed 06898502 ALLERGIES Allergen (clinical drug ingredient) Drug/Non Drug Allergy do cumented on EMR Reaction Allergy Type Onset Date Status evironmental watery eyes,sneezing Non Drug Allergy Active ENCOUNTERS from 1933 to 2021-03-14 Encounter Location Date Provider Diagnosis [address] [phone] [place] [address] Feb, Landen Dyson Obstructive sleep apnea G47. 33 [...] School Language: Question Answer Notes Languages spoken: Bengali Muslim: Question Answer Notes Muslim No taoist beliefs that would impact health care. Sexual [...] Once a day for 90 day(s) Active Aspirin 81 MG 1 tablet Orally Once a day Active Glimepiride 4 MG 1 tab Orally AC BID for 90 day(s) Active Rosuvastatin Calcium 20 MG 1 tablet Orally Daily for 90 day(s) Active Cyanocobalamin 500 MCG 1 tablet Orally Once a day for 90 day(s) Active Potassium Chloride ER 10 MEQ TAKE ONE TABLET BY MOUTH TWO TIMES A DAY for 90 Active Apixaban 5 MG 1 tab Orally bid Activ e FreeStyle Ghulam 14 Day Sensor - as directed subcutaneo usly DX: E11.8 for 30 Days Jan, Active Cholecalciferol 5000 UNIT 1 capsule Orally Once a day for 90 day(s) Active Ammonium Lactate 12 % 1 application Externally Twi ce a day to bothb feet for 30 Days Active Rosuvastatin Calcium 20 MG TAKE ONE TABLET BY MOUTH EVERY DAY for 90 Active Omeprazole 40 MG 1 capsule Orally Once a day for 90 day(s) Active Voltaren 1 % clarification 5 gm to r knee , r index finger Transdermal four times daily as needed for 30 Days Active Allopurinol 300 MG TAKE ONE TABLET BY MOUTH DAILY for 90 Active Fluticasone Propionate 50 MCG/ACT 2 sprays in each nos tril Nasally every morning for 90 day(s) Active Walker - 4 wheeled walker w/ seat Daily DX: R27.0 for 30 Days fax to Sun [phone] Oct, Active COMPRESSION STOCKINGS 15-20 mmHg DIRECTED above the knee Daily for 30 Days fax to sun [phone] Jun, Active Lancets - marty contour ez subcutaneously AC BID DX: E11.8 for 90 Active Systane Ultra 0.4-0.3 % 1 drop each eye Ophthalmic QID Active Blood Glucose Test - marty countour ez subcutaneously A C BID for 9 0 day(s) Active Apixaban 5 MG 1 tab Orally bid for 90 day(s) Active Glucometer _ One Touch Verio DX: E11.9 Daily use for 365 days Feb, Active Tresiba FlexTouch 200 UNIT/ML 10 units Subcutaneous at bedtime f or 90 day(s) Active metFORMIN HCl ER 500 MG 1 tab Orally AC BID for 90 day(s) Active Glimepiride 4 MG TAKE ONE TABLET BY MOUTH TWICE A DAY BEFORE MEALS 90 Active OneTouch Verio - USE TWO TIMES A DAY for 50 Active Knee Compression Sleeve/L/XL 1 as directed R60.9 Daily for 99 mo [facility] Apr, Active Optifoam Gentle Foam Dressings as directed 4 x4; topic ally 2-3x/week x 4 weeks for 30 days Jun, Active CPAP Machine as directed 4-20 mmHg dx: G47.33 August, Active CPAP mask as directed decrease pressure by 2 dx: G 47.33 for 999 days [facility] fax # August, Active Torsemide 20 MG 1 1/2 ablet Orally every morning for 90 day(s) Active CPAP mask as directed and supplies DX: G47.33 for 999 days [facility] fax # Feb, Active Pen Sassafras 31G X 5 MM as directed subcutaneously once daily for 30 Days Apr, Active PROCEDURES No Information RESULTS No Results REASON FOR VISIT nasal piece for c-pap MEDICAL (GENERAL) HISTORY Type Description Date Medical [...] 1 christa dysfx, AV sclero sis, trace [place], no evidence of bubble passage form R [...] Treatment Notes Treatm ent Clinical Notes Feb, Obstructive sleep apnea (ICD-10 - G47.33) PLAN OF TREATMENT Medication Medication Name Sig Start Date Stop Date CPAP mask as directed and supplies DX: G47.33 for 999 days Feb, Pen Sassafras 31G X 5 MM as directed subcutaneously once daily for 30 Days Apr, Torsemide 20 MG 1 1/2 ablet Orally every morning for 90 day(s) CPAP mask as directed decrease pressure by 2 dx: G 47.33 for 999 days August, Omeprazole 40 MG 1 capsule Orally Once a day for 90 day(s) Fluticasone Propionate 50 MCG/ACT 2 sprays in each nos tril Nasally every morning for 90 day(s) Cyanocobalamin 500 MCG 1 tablet Orally Once a day for 90 day(s) Voltaren 1 % clarification 5 gm to r knee , r index finger Transdermal four times daily as needed for 30 Days Allopurinol 300 MG 1 tablet Orally Once a day for 90 day(s) Rosuvastatin Calcium 20 MG 1 tablet Orally Daily for 90 day(s) Systane Ultra 0.4-0.3 % 1 drop each eye Ophthalmic QID Apixaban 5 MG 1 tab Orally bid for 90 day(s) Ammonium Lactate 12 % 1 application Externally Twi ce a day to bothb feet for 30 Days FreeStyle Ghulam 14 Day Sensor - as directed subcutaneo usly DX: E11.8 for 30 Days Jan, Aspirin 81 MG 1 tablet Orally Once a day Tresiba FlexTouch 200 UNIT/ML 10 units Subcutaneous at bedtime f or 90 day(s) Glimepiride 4 MG 1 tab [...] Name:Landen Dyson, 2021-05-04 0 1:00:00 PM, [address] [facility], , [place], [address], Insurance Providers Payer Name Payer Address Payer Phone Insured Name Patient Relati onship to Insured Coverage Start Date Coverage End Date [facility] [employer] [address] [address] [facility] [id number] [phone] INA SORIANO
--- OUTSIDE RECORDS SUMMARY | 2021-03-19 17:01 | CCD ---
Author Author [facility] Organization [facility] Address Unknown Phone Unavailable Care Team Providers Care Site Worker Name Role Phone Nora Peres Unavailable PROBLEMS Type Condition ICD9-CM Code [id number] Code Onset Dates Condition S tatus W/U Status Risk SNOMED Code Notes Problem DJD (degenerative joint disease), 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 Active confirmed 270133521 Problem Hyperlipidemia E78.5 Active confirmed 08431 004 Problem Vitamin B12 deficiency E53.8 Active confirmed 103957513 Problem Vitamin D deficiency E55.9 Active confirmed 26170399 Problem GERD (gastroesophageal reflux disease) K21.9 A ctive confirmed 656361034 Problem Primary osteoarthritis of both knees M17.0 Act jasen confirmed 103392300 Problem CKD (chronic kidney disease) stage 3, GFR 30-59 ml/min N18.3 Active confirmed 904373143 Problem 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.511 Active confirmed 168731185987855 Problem Non-seasonal allergic rhinitis, unspecified trigger J30.89 Active confirmed 92519427 Problem Essential (primary) hypertension I10 Active conf irmed 33296510 Problem Chronic diastolic (congestive) heart failure I50.3 2 Active confirmed 734295888 Problem 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.8 Active confirmed 260984998 Problem Gout M10.9 Active confirmed 54529223 Problem Mild dementia F03.90 Active confirmed 184524 434995042 Problem Ataxia R27.0 Active confirmed 17047515 Problem 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 Active confirmed 230 086855 Problem Seizure disorder G40.909 Active confirmed 12 7404815 Problem PVD (peripheral vascular disease) I73.9 Active confirmed 763475880 Problem Iron deficiency anemia, unspecified iron deficiency an emia type D50.9 Active confirmed 96176922 Problem 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 Active confirmed 783244592 Problem Dry eyes, bilateral H04.123 Active confirmed 062558628 Problem 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 Active confirmed 54176535 Problem Obstructive sleep apnea G47.33 Active confirmed 18789275 Problem 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 Active confirmed 883979748 Problem Sensorineural hearing loss (SNHL) of both ears H90 .3 Active confirmed 317869729 Problem Overweight E66.3 Active confirmed 127097343 Problem Prostate cancer C61 Active confirmed 3990 92743 Problem Skin ulcer of left heel, limited to breakdown of skin L97.421 Active confirmed 101949613 Problem 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 Active confirmed 610444123 Problem Xerosis cutis L85.3 Active confirmed 421882 00 Problem MIHIR (obstructive sleep apnea) G47.33 Active confirm ed 86610168 ALLERGIES Allergen (clinical drug ingredient) Drug/Non Drug Allergy do cumented on EMR Reaction Allergy Type Onset Date Status evironmental watery eyes,sneezing Non Drug Allergy Active ENCOUNTERS from 1933 to 2021-03-17 Encounter Location Date Provider Diagnosis [address] [phone] [place] [address] Feb, Nora Peres IMMUNIZATIONS Vaccine Route Administration Date Status Influenza [...] School Language: Question Answer Notes Languages spoken: Turkmen Rastafari: Question Answer Notes Rastafari No spiritism beliefs that would impact health [...] Notes Start Da te End Date Status Systane Ultra 0.4-0.3 % 1 drop each eye Ophthalmic QID Unknown FreeStyle Ghulam 14 Day Sensor - as directed subcutaneo usly DX: E11.8 for 30 Days Jan, Active Glimepiride 4 MG TAKE ONE TABLET BY MOUTH TWICE A DAY BEFORE MEALS fo r 90 Active metFORMIN HCl ER 500 MG 1 tab Orally AC BID for 90 day(s) Active Blood Glucose Test - marty countour ez subcutaneously A C BID for 9 0 day(s) Active Fluticasone Propionate 50 MCG/ACT 2 sprays in each nos tril Nasally every morning for 90 day(s) Active Voltaren 1 % clarification 5 gm to r knee , r index finger Transdermal four times daily as needed for 30 Days Active Omeprazole 40 MG 1 capsule Orally Once a day at bedtime Active Tresiba FlexTouch 200 UNIT/ML 10 units Subcutaneous at bedtime f or 90 day(s) Active Allopurinol 300 MG 1 tablet Orally Once a day for 90 day(s) Active CPAP mask as directed decrease pressure by 2 dx: G 47.33 for 999 days [facility] fax # August, Active Cholecalciferol 5000 UNIT 1 capsule Orally Once a day for 90 day(s) Active predniSONE 10 MG as directed Orally 4 tabs da corrina x 3 days, 3 tabs daily x 3 days, 2 tabs daily x 3 days then 1 tab daily x 3 days taper on d/c from hospital Feb, Active Potassium Chloride 10 MEQ 1 tablet Orally Twice a day for 90 day(s) Active Walker - 4 wheeled walker w/ seat Daily DX: R27.0 for 30 Days fax to [facility] [phone] Oct, Active Knee Compression Sleeve/L/XL 1 as directed R60.9 Daily for 99 mo [facility] Apr, Active Torsemide 20 MG 1 1/2 ablet Orally every morning for 90 day(s) t otal dose 30MG Active Rosuvastatin Calcium 20 MG 1 tablet Orally Daily at bedtime Active Apixaban 5 MG 1 tab Orally bid Activ e Ammonium Lactate 12 % 1 application Externally Twi ce a day to bothb feet for 30 Days Active ProAir HFA 108 (90 Base) MCG/ACT 2 puff Inhalation every 4 h rs as needed started at d/c from [facility] Feb, Active Aspirin 81 MG 1 tablet Orally Once a day Active Cyanocobalamin 1000 MCG 1 tablet Orally Once a day dose on d ischarge dose increase Feb, Active Ferrous Sulfate 325 (65 Fe) MG 1 tablet Orally every other d ay at bedtime dose at discharge Feb, Active CPAP Machine as directed 4-20 mmHg dx: G47.33 17 Aug, 2020 Active CPAP mask as directed and supplies DX: G47.33 for 999 days [facility] fax # Feb, Active PROCEDURES No Information RESULTS No Results REASON FOR VISIT [facility] d/c 03/16 Acute Hypoxemic Respiratory Failure d/t COVID-19 MEDICAL (GENERAL) HISTORY Type Description Date Medical [...] 1 christa dysfx, AV sclero sis, trace [place], no evidence of bubble passage form R [...] Treatment Notes Treatm ent Clinical Notes Feb, Other Discussion with patient's , Kayley. Reviewed all meds and instructed on times and dosages. Pt is now on oxygen 2 L NC, delivered and set up by [facility]. reports pt is fatigued and weak since hospital discharge, but is up OOB ambulating with walker. Pt is to receive physical therapy in the home. Appetite is fair. Pt continues to have moist productive cough, bringing up clear mucous. Pt is dyspneic on exertion. Pt to continue Prednisone taper, and Pro air HFA for PRN use. Advised to call for worsening SX or if mucous becomes yellow or green or Pt develops fever. verbalized understanding. Advised to encourage to practice deep breathing and coughing to help clear excretions. Pt did not receive incentive spirometer on discharge. PLAN OF TREATMENT Next Appt Details Provider Name:Nora Paradaevan, 2020-04 08:30:00 AM, [address] [place] [address] , [place], [address], Provider Name:Landen Dyson, 2021-05-04 0 1:00:00 PM, [address] [place] [address], , [place], [address], Insurance Providers Payer Name Payer Address Payer Phone Insured Name Patient Relati onship to Insured Coverage Start Date Coverage End Date [facility] [address] [address] [facility] [id number] INA SORIANO V self
--- OUTSIDE RECORDS SUMMARY | 2021-03-19 17:02 | CCD ---
Author Author [facility] Organization [facility] Address Unknown Phone Unavailable Care Team Providers Care Caustic Mixer Name Role Phone Karyn, Sneha PA Unavailable Unavailable Karyn, Sneha PA Unavailable Unavailable Karyn, Sneha PA Unavailable Unavailable Karyn, Sneha PA Unavailable Unavailable Karyn, Sneha PA Unavailable Unavailable Karyn, Sneha PA Unavailable Unavailable Karyn, Sneha PA Unavailable Unavailable Karyn, Sneha PA Unavailable Unavailable Karyn, Sneha PA Unavailable Unavailable Karyn, Sneha PA Unavailable Unavailable CHRIS, FRANCIS LASHAWN FRUIT AND VEGETABLE PACKER-C Unavailable Unavailable CHRIS, FRANCIS LASHAWN FRUIT AND VEGETABLE PACKER-C Unavailable Unavailable CHRIS, FRANCIS LASHAWN FRUIT AND VEGETABLE PACKER-C Unavailable Unavailable CHRIS, FRANCIS LASHAWN FRUIT AND VEGETABLE PACKER-C Unavailable Unavailable CHRIS, FRANCIS LASHAWN FRUIT AND VEGETABLE PACKER-C Unavailable Unavailable CHRIS, FRANCIS LASHAWN FRUIT AND VEGETABLE PACKER-C Unavailable Unavailable CHRIS, FRNACIS LASHAWN FRUIT AND VEGETABLE PACKER-C Unavailable Unavailable CHRIS, FRANCIS LASHAWN FRUIT AND VEGETABLE PACKER-C Unavailable Unavailable CHRIS, FRANCIS LASHAWN FRUIT AND VEGETABLE PACKER-C Unavailable Unavailable CHRIS, FRANCIS LASHAWN FRUIT AND VEGETABLE PACKER-C Unavailable Unavailable CHRIS, FRANCIS LASHAWN FRUIT AND VEGETABLE PACKER-C Unavailable Unavailable CHRIS, FRANCIS LASHAWN FRUIT AND VEGETABLE PACKER-C Unavailable Unavailable CHRIS, FRANCIS LASHAWN FRUIT AND VEGETABLE PACKER-C Unavailable Unavailable CHRIS, FRANCIS LASHAWN FRUIT AND VEGETABLE PACKER-C Unavailable Unavailable CHRIS, FRANCIS LASHAWN FRUIT AND VEGETABLE PACKER-C Unavailable Unavailable CHRIS, FRANCIS LASHAWN FRUIT AND VEGETABLE PACKER-C Unavailable Unavailable CHRIS, FRANCIS LASHAWN FRUIT AND VEGETABLE PACKER-C Unavailable Unavailable Re-disclosure Warning The records that [...] is protected by Article 27-F of the [facility] Public Health law. If you continue you may have access to information: Regarding HIV / AIDS; Provided by facilities licensed or operated by the [facility] Office of Mental Health; or Provided by the [facility] Office for People With Developmental Disabilities. If such information is present, then the following [facility] mandated warning applies: This information has been [...] law may result in a fine or custodial sentence or both. A general authorization for the release of medical or other information is NOT sufficient authorization for further disc losure. Allergies and Adverse Reactions Type Description Substance Reaction Status Data Source(s ) NKDA NKDA NKDA active NETSMART ([facility]) Encounters Encounter Providers Location Date Indications Data Source(s ) [place] [address] [address] 03/17/2021 12:00:00 AM EST [facility] ([facility] Unknown [address] [facility] [place] [address] 03/13/2021 12:00:00 AM EST eCW1 ([facility]) [place] [address] [address] 02/28/2021 12:00:00 AM EDT eCW1 ([facility]) [place] [address] [address] 02/15/2021 12:00:00 AM EDT eCW1 ([facility]) Unknown [address] [facility] [place] [address] 02/14/2021 12:00:00 AM EDT eCW1 ([facility]) [place] [address] [address] 02/10/2021 12:00:00 AM EDT eCW1 ([facility]) [place] [address] [address] 02/03/2021 12:00:00 AM EDT eCW1 ([facility]) Outpatient Attender: LASHAWN Gardiner/Patsy/Mir/Florence mercedes 02/01/2021 03:15:00 PM EDT MEDENT ([facility]) Unknown [address] [facility] [place] [address] 01/20/2021 12:00:00 AM EDT eCW1 ([facility]) Unknown [address] [facility] [place] [address] 01/18/2021 12:00:00 AM EDT eCW1 ([facility]) [place] [address] [address] 01/16/2021 12:00:00 AM EDT eCW1 ([facility]) [place] [address] [address] 01/13/2021 12:00:00 AM EDT [facility] [place] [address] [address] 01/05/2021 12:00:00 AM EDT eCW1 ([facility]) [place] [address] [address] 01/03/2021 12:00:00 AM EDT eCW1 ([facility]) Outpatient [address] [address] 12/26/2020 12:00:00 AM EDT eCW1 ([facility]) [place] [address] [address] 12/19/2020 12:00:00 AM EDT eCW1 ([facility]) [place] [address] [address] 12/05/2020 12:00:00 AM EDT eCW1 ([facility]) [place] [address] [address] 12/01/2020 12:00:00 AM EDT eCW1 ([facility]) [place] [address] [address] 11/28/2020 12:00:00 AM EDT eCW1 ([facility]) [place] [address] [address] 11/14/2020 12:00:00 AM EDT eCW1 ([facility]) Outpatient Attender: LASHAWN Gardiner/Patsy/Charis mercedes 10/20/2020 02:45:00 PM EDT MEDENT ([facility]) [place] [address] [address] 09/27/2020 12:00:00 AM EDT eCW1 ([facility]) [place]patient [address] [address] 09/27/2020 12:00:00 AM EDT eCW1 ([facility]) Unknown [address] [address] 09/21/2020 12:00:00 AM EDT eCW1 ([facility]) Unknown [address] [address] 09/14/2020 12:00:00 AM EDT eCW1 ([facility]) [place] [address] [address] 09/12/2020 12:00:00 AM EDT eCW1 ([facility]) Office Visit, Est Pt., Level 3 PC [address] [place] [address] 09/09/2020 12:00:00 AM EDT eCW1 ([facility]) Unknown [address] [address] 09/08/2020 12:00:00 AM EDT eCW1 ([facility]) Unknown [address] [address] 09/01/2020 12:00:00 AM EDT eCW1 ([facility]) Unknown [address] [facility] [place] [address] 08/29/2020 12:00:00 AM EDT eCW1 ([facility]) Unknown [address] [address] 08/26/2020 12:00:00 AM EDT eCW1 ([facility]) Office Visit, Est Pt., Level 3 PC [address] [place] [address] 08/23/2020 12:00:00 AM EDT eCW1 ([facility]) Unknown [address] [facility] [place] [address] 08/23/2020 12:00:00 AM EDT eCW1 ([facility]) Outpatient Attender: Sneha KAT 0 07/25/2020 02:40:07 PM EDT - 07/25/2020 03:29:15 PM EDT DocuTap ([facility]) Unknown [address] [address] 07/12/2020 12:00:00 AM EDT eCW1 ([facility]) Outpatient [address] [address] 07/11/2020 12:00:00 AM EDT eCW1 ([facility]) [place] [address] [address] 07/06/2020 12:00:00 AM EST eCW1 ([facility] [place] [address] [address] 07/04/2020 12:00:00 AM EST eCW1 ([facility]) Office Visit, Est Pt., Level 3 PC [address] [place] [address] 06/30/2020 12:00:00 AM EST eCW1 ([facility]) Unknown [address] [address] 06/29/2020 12:00:00 AM EST eCW1 ([facility]) Unknown [address] [address] 06/28/2020 12:00:00 AM EST eCW1 ([facility]) Unknown [address] [address] 06/27/2020 12:00:00 AM EST eCW1 ([facility]) 06/27/2020 12:00:00 AM EST - 03:06:51 PM EST NETSMART ([facility]) Unknown [address] [address] 06/24/2020 12:00:00 AM EST eCW1 ([facility]) Unknown [address] [address] 06/21/2020 12:00:00 AM EST eCW1 ([facility]) Unknown [address] [address] 06/21/2020 12:00:00 AM EST eCW1 ([facility]) Unknown [address] [address] 06/21/2020 12:00:00 AM EST eCW1 ([facility]) Office Visit, Est Pt., Level 3 PC [address] [place] [address] 06/14/2020 12:00:00 AM EST eCW1 ([facility]) Unknown [address] [address] 06/13/2020 12:00:00 AM EST eCW1 ([facility]) Outpatient [address] [address] 06/02/2020 12:00:00 AM EST eCW1 ([facility]) Unknown [address] [address] 05/26/2020 12:00:00 AM EST eCW1 ([facility]) Unknown [address] [address] 05/26/2020 12:00:00 AM EST eCW1 ([facility]) Unknown [address] [address] 05/17/2020 12:00:00 AM EST eCW1 ([facility]) Unknown [address] [facility] [place] [address] 05/16/2020 12:00:00 AM EST eCW1 ([facility]) Unknown [address] [address] 05/12/2020 12:00:00 AM EST eCW1 ([facility]) Unknown [address] [address] 05/12/2020 12:00:00 AM EST eCW1 ([facility]) Unknown [address] [address] 04/27/2020 12:00:00 AM EST eCW1 ([facility]) Unknown [address] [address] 04/12/2020 12:00:00 AM EST eCW1 ([facility]) Unknown [address] [address] 03/17/2020 12:00:00 AM EST eCW1 ([facility]) Outpatient [address] [facility] [place] [address] 03/14/2020 12:00:00 AM EST eCW1 ([facility]) Unknown [address] [facility] [place] [address] 03/11/2020 12:00:00 AM EST eCW1 ([facility]) Unknown [address] [address] 03/08/2020 12:00:00 AM EST eCW1 ([facility]) Unknown [address] [facility] [place] [address] 03/03/2020 12:00:00 AM EST eCW1 ([facility]) Unknown [address] [facility] [place] [address] 03/03/2020 12:00:00 AM EST eCW1 ([facility]) Office Visit, Est Pt., Level 3 PC [address] [place] [address] 03/02/2020 12:00:00 AM EST eCW1 ([facility]) Unknown [address] [facility] [place] [address] 02/29/2020 12:00:00 AM EST eCW1 ([facility]) [facility] [address] [facility] [place] [address] 02/26/2020 12:00:00 AM EDT eCW1 ([facility]) Unknown [address] [address] 02/25/2020 12:00:00 AM EDT eCW1 ([facility]) Office Visit, Est Pt., Level 3 PC [address] [place] [address] 02/16/2020 12:00:00 AM EDT eCW1 ([facility]) Unknown [address] [address] 02/03/2020 12:00:00 AM EDT eCW1 ([facility]) Immunizations Vaccine Date Status Description Data Source(s) COVID-19 VACCINE Moderna 09/23/2020 12:00:00 AM EDT completed [place] Vaccine Series Complete: YESThis Data wa s Submitted to [facility] Via [employer]. COVID-19 VACCINE Moderna 08/24/2020 12:00:00 AM EDT completed [place] Vaccine Series Complete: NOThis Data was Submitted to [facility] [employer]. Medications Medication Brand Name Start Date Product Form Dose Route Admi nistrative Instructions Pharmacy Instructions Status Indications Reaction Description Data Source(s) Rosuvastatin calcium 20 MG Oral Tablet ROSUVASTATIN CALCIUM 03/16/2021 12:00:00 AM EST tablet 90 TAKE ONE TABLET BY MOUTH MITRA DAY TAKE ONE TABLET BY MOUTH EVERY DAY SOLD: 03/16/2021 [facility] Cyanocobalamin 1000 MCG UNK 03/16/2021 12:00:00 AM EST 1.0 { tablet} active Cyanocobalamin 1000 MCG eCW1 ([facility]) 90 mcg/actuation 03/16/2021 12:00:00 AM EST HFA aerosol inha ler 8 INHALE TWO PUFFS BY MOUTH EVERY 4 HOURS NEEDED FOR WHEEZING INHALE TWO PUFFS BY MOUTH EVERY 4 HOURS NEEDED FOR WHEEZING SOLD: 03/16/2021 [facility] 200 ACTUAT Albuterol 0.09 MG/ACTUAT Mete red Dose Inhaler [ProAir] ProAir HFA 108 (90 Base) MCG/ACT ProAir HFA 108 (90 Base) MCG/ACT 03/16/2021 12:00:00 AM EST 2.0 {puff} active ProAir HFA 10 8 (90 Base) MCG/ACT eCW1 ([facility]) 10 mg 03/16/2021 12:00:00 AM EST tablet 30 TAKE FOUR TABLETS BY MOUTH EVERY DAY FOR 3 DAYS THEN 3 DAILY FOR 3 DAYS THEN 2 DAILY FOR 3 DAYS THEN 1 DAILY FOR 3 DAYS THEN STOP TAKE FOUR TABLETS BY MOUTH EVERY DAY FOR 3 DAYS THEN 3 DAILY FOR 3 DAYS THEN 2 DAILY FOR 3 DAYS THEN 1 DAILY FOR 3 DAYS THEN STOP SOLD: 03/16/2021 [facility] Prednisone 10 MG Oral Tablet predniSONE 10 MG predniSONE 10 MG 03/16/2021 12:00:00 AM EST active predniSO NE 10 MG eCW1 ([facility]) ferrous sulfate 325 MG Oral Tablet Ferrous Sulfate 325 (65 Fe) MG Ferrous Sulfate 325 (65 Fe) MG 03/16/2021 12:00:00 AM EST 1.0 {tablet} active Ferrous Sulfate 325 (65 Fe) MG eCW1 ([facility]) CPAP mask UNK 03/14/2021 12:00:00 AM EST active CPAP mask eCW1 ([facility]) CPAP mask UNK 03/14/2021 12:00:00 AM EST active CPAP mask eCW1 ([facility]) FreeStyle Ghulam 14 Day Sensor - FreeStyle Ghulam 14 Day Senso r - 02/13/2021 12:00:00 AM EDT active FreeStyl e Ghulam 14 Day Sensor - eCW1 ([facility]) FreeStyle Ghulam 14 Day Sensor - FreeStyle Ghulam 14 Day Senso r - 02/13/2021 12:00:00 AM EDT active FreeStyl e Ghulam 14 Day Sensor - eCW1 ([facility]) FreeStyle Ghulam 14 Day Sensor - FreeStyle Ghulam 14 Day Senso r - 02/13/2021 12:00:00 AM EDT active FreeStyl e Ghulam 14 Day Sensor - eCW1 ([facility]) FreeStyle Ghulam 14 Day Sensor - FreeStyle Ghulam 14 Day Senso r - 02/13/2021 12:00:00 AM EDT active FreeStyl e Ghulam 14 Day Sensor - eCW1 ([facility]) FreeStyle Ghulam 14 Day Sensor - FreeStyle Ghulam 14 Day Senso r - 02/13/2021 12:00:00 AM EDT active FreeStyl e Ghulam 14 Day Sensor - eCW1 ([facility]) FreeStyle Ghulam 14 Day Sensor - FreeStyle Ghulam 14 Day Senso r - 02/13/2021 12:00:00 AM EDT active FreeStyl e Ghulam 14 Day Sensor - eCW1 ([facility]) 31 gauge x 3/16" 01/21/2021 12:00:00 AM [...] propionate 0.05 MG/ACTUAT Metered Dose Chuck al Limon 50 mcg/actuation FLUTICASONE PROPIONATE 12/27/2020 12:00:00 AM [...] TWICE A DAY BEFORE MEALS SOLD: 12/09/2020 [facility] Rosuvastatin calcium 20 MG Oral [...] Autopap 10/26/2020 12:00:00 AM EDT active MEDENT ([facility], ) 12 % 09/30/2020 12:00:00 AM EDT [...] {application} active Ammonium Lactate 12 % eCW1 ([facility]) ammonium lactate 120 MG/ML Topical Cream Ammonium Lact ate 12 % Ammonium Lactate 12 % 09/27/2020 12:00:00 AM EDT 1.0 {application} active Ammonium Lactate 12 % eCW1 ([facility]) ammonium lactate 120 MG/ML Topical Cream Ammonium Lact ate 12 % Ammonium Lactate 12 % 09/27/2020 12:00:00 AM EDT 1.0 {application} active Ammonium Lactate 12 % eCW1 ([facility]) ammonium lactate 120 MG/ML Topical Cream Ammonium Lact ate 12 % Ammonium Lactate 12 % 09/27/2020 12:00:00 AM EDT 1.0 {application} active Ammonium Lactate 12 % eCW1 ([facility]) ammonium lactate 120 MG/ML Topical Cream Ammonium Lact ate 12 % Ammonium Lactate 12 % 09/27/2020 12:00:00 AM EDT 1.0 {application} active Ammonium Lactate 12 % eCW1 ([facility]) ammonium lactate 120 MG/ML Topical Cream Ammonium Lact ate 12 % Ammonium Lactate 12 % 09/27/2020 12:00:00 AM EDT 1.0 {application} active Ammonium Lactate 12 % eCW1 ([facility]) ammonium lactate 120 MG/ML Topical Cream Ammonium Lact ate 12 % Ammonium Lactate 12 % 09/27/2020 12:00:00 AM EDT 1.0 {application} active Ammonium Lactate 12 % eCW1 ([facility]) ammonium lactate 120 MG/ML Topical Cream Ammonium Lact ate 12 % Ammonium Lactate 12 % 09/27/2020 12:00:00 AM EDT 1.0 {application} active Ammonium Lactate 12 % eCW1 ([facility]) 31 gauge x 3/16" 09/14/2020 12:00:00 AM [...] 12:00:00 AM EDT active CPAP mask eCW1 ([facility]) CPAP mask UNK 09/12/2020 12:00:00 AM EDT active CPAP mask eCW1 ([facility]) CPAP mask UNK 09/12/2020 12:00:00 AM EDT active CPAP mask eCW1 ([facility]) CPAP Machine UNK 09/12/2020 12:00:00 AM EDT activ e CPAP Machine eCW1 ([facility]) CPAP Machine UNK 09/12/2020 12:00:00 AM EDT activ e CPAP Machine eCW1 ([facility]) CPAP Machine UNK 09/12/2020 12:00:00 AM EDT activ e CPAP Machine eCW1 ([facility]) CPAP mask UNK 09/12/2020 12:00:00 AM EDT active CPAP mask eCW1 ([facility]) CPAP mask UNK 09/12/2020 12:00:00 AM EDT active CPAP mask eCW1 ([facility]) CPAP mask UNK 09/12/2020 12:00:00 AM EDT active CPAP mask eCW1 ([facility]) CPAP mask UNK 09/12/2020 12:00:00 AM EDT active CPAP mask eCW1 ([facility]) CPAP Machine UNK 09/12/2020 12:00:00 AM EDT activ e CPAP Machine eCW1 ([facility]) CPAP mask UNK 09/12/2020 12:00:00 AM EDT active CPAP mask eCW1 ([facility]) CPAP Machine UNK 09/12/2020 12:00:00 AM EDT activ e CPAP Machine eCW1 ([facility]) CPAP mask UNK 09/12/2020 12:00:00 AM EDT active CPAP mask eCW1 ([facility]) CPAP Machine UNK 09/12/2020 12:00:00 AM EDT activ e CPAP Machine eCW1 ([facility]) CPAP Machine UNK 09/12/2020 12:00:00 AM EDT activ e CPAP Machine eCW1 ([facility]) CPAP mask UNK 09/12/2020 12:00:00 AM EDT active CPAP mask eCW1 ([facility]) CPAP Machine UNK 09/12/2020 12:00:00 AM EDT activ e CPAP Machine eCW1 ([facility]) CPAP Machine UNK 09/12/2020 12:00:00 AM EDT activ e CPAP Machine eCW1 ([facility]) CPAP mask UNK 09/12/2020 12:00:00 AM EDT active CPAP mask eCW1 ([facility]) CPAP Machine UNK 09/12/2020 12:00:00 AM EDT activ e CPAP Machine eCW1 ([facility]) CPAP Machine UNK 09/12/2020 12:00:00 AM EDT activ e CPAP Machine eCW1 ([facility]) CPAP Machine UNK 09/12/2020 12:00:00 AM EDT activ e CPAP Machine eCW1 ([facility]) CPAP mask UNK 09/12/2020 12:00:00 AM EDT active CPAP mask eCW1 ([facility]) CPAP mask UNK 09/12/2020 12:00:00 AM EDT active CPAP mask eCW1 ([facility]) CPAP Machine UNK 09/12/2020 12:00:00 AM EDT activ e CPAP Machine eCW1 ([facility]) CPAP Machine UNK 09/12/2020 12:00:00 AM EDT activ e CPAP Machine eCW1 ([facility]) CPAP mask UNK 09/12/2020 12:00:00 AM EDT active CPAP mask eCW1 ([facility]) CPAP Machine UNK 09/12/2020 12:00:00 AM EDT activ e CPAP Machine eCW1 ([facility]) CPAP Machine UNK 09/12/2020 12:00:00 AM EDT activ e CPAP Machine eCW1 ([facility]) CPAP Machine UNK 09/12/2020 12:00:00 AM EDT activ e CPAP Machine eCW1 ([facility]) CPAP Machine UNK 09/12/2020 12:00:00 AM EDT activ e CPAP Machine eCW1 ([facility]) CPAP Machine UNK 09/12/2020 12:00:00 AM EDT activ e CPAP Machine eCW1 ([facility]) CPAP Machine UNK 09/12/2020 12:00:00 AM EDT activ e CPAP Machine eCW1 ([facility]) CPAP mask UNK 09/12/2020 12:00:00 AM EDT active CPAP mask eCW1 ([facility]) CPAP mask UNK 09/12/2020 12:00:00 AM EDT active CPAP mask eCW1 ([facility]) CPAP mask UNK 09/12/2020 12:00:00 AM EDT active CPAP mask eCW1 ([facility]) CPAP mask UNK 09/12/2020 12:00:00 AM EDT active CPAP mask eCW1 ([facility]) CPAP Machine UNK 09/12/2020 12:00:00 AM EDT activ e CPAP Machine eCW1 ([facility]) CPAP mask UNK 09/12/2020 12:00:00 AM EDT active CPAP mask eCW1 ([facility]) CPAP Machine UNK 09/12/2020 12:00:00 AM EDT activ e CPAP Machine eCW1 ([facility]) CPAP Machine UNK 09/12/2020 12:00:00 AM EDT activ e CPAP Machine eCW1 ([facility]) CPAP Machine UNK 09/12/2020 12:00:00 AM EDT activ e CPAP Machine eCW1 ([facility]) CPAP mask UNK 09/12/2020 12:00:00 AM EDT active CPAP mask eCW1 ([facility]) CPAP mask UNK 09/12/2020 12:00:00 AM EDT active CPAP mask eCW1 ([facility]) CPAP Machine UNK 09/12/2020 12:00:00 AM EDT activ e CPAP Machine eCW1 ([facility]) CPAP mask UNK 09/12/2020 12:00:00 AM EDT active CPAP mask eCW1 ([facility]) CPAP Machine UNK 09/12/2020 12:00:00 AM EDT activ e CPAP Machine eCW1 ([facility]) CPAP mask UNK 09/12/2020 12:00:00 AM EDT active CPAP mask eCW1 ([facility]) CPAP mask UNK 09/12/2020 12:00:00 AM EDT active CPAP mask eCW1 ([facility]) CPAP mask UNK 09/12/2020 12:00:00 AM EDT active CPAP mask eCW1 ([facility]) CPAP mask UNK 09/12/2020 12:00:00 AM EDT active CPAP mask eCW1 ([facility]) 24 HR Metformin hydrochloride 500 MG Extended [...] TWICE A DAY BEFORE MEALS SOLD: 09/07/2020 [facility] 50 mg 08/31/2020 12:00:00 AM EDT [...] TABLET BY MOUTH EVERY DAY SOLD: 08/24/2020 [facility] BLOOD SUGAR DIAGNOSTIC 08/10/2020 12:00:00 [...] IN EACH NOSTRIL EVERY MORNING SOLD: 08/07/2020 [facility] 300 mg 07/22/2020 12:00:00 AM EDT tablet 90 TAKE ONE TABLET BY MOUTH EVERY DAY TAKE ONE TABLET BY MOUTH EVERY DAY SOLD: 07/25/2020 [facility] Optifoam Gentle Foam Dressings [facility] 06/30/2020 12:00:00 AM EST active Optifoam Gentle Foam Dressings eCW1 ([facility]) Optifoam Gentle Foam Dressings UNK 06/30/2020 12:00:00 AM EST active Optifoam Gentle Foam Dressings eCW1 ([facility]) Polyethylene Glycol 400 4 MG/ML / Propyl meliton glycol 3 MG/ML Ophthalmic Solution [Systane] Systane Ultra 0.4-0.3 % Systane Ultra 0.4-0.3 % 06/30/2020 12:00:00 AM EST active Systane Ultra 0.4 -0.3 % eCW1 ([facility]) Optifoam Gentle Foam Dressings UNK 06/30/2020 12:00:00 AM EST active Optifoam Gentle Foam Dressings eCW1 ([facility]) Polyethylene Glycol 400 4 MG/ML / Propyl meliton glycol 3 MG/ML Ophthalmic Solution [Systane] Systane Ultra 0.4-0.3 % Systane Ultra 0.4-0.3 % 06/30/2020 12:00:00 AM EST active Systane Ultra 0.4 -0.3 % eCW1 ([facility]) Optifoam Gentle Foam Dressings UN 06/30/2020 12:00:00 AM EST active Optifoam Gentle Foam Dressings eCW1 ([facility]) Optifoam Gentle Foam Dressings UNK 06/30/2020 12:00:00 AM EST active Optifoam Gentle Foam Dressings eCW1 ([facility]) Polyethylene Glycol 400 4 MG/ML / Propyl meliton glycol 3 MG/ML Ophthalmic Solution [Systane] Systane Ultra 0.4-0.3 % Systane Ultra 0.4-0.3 % 06/30/2020 12:00:00 AM EST active Systane Ultra 0.4 -0.3 % eCW1 ([facility]) Polyethylene Glycol 400 4 MG/ML / Propyl meliton glycol 3 MG/ML Ophthalmic Solution [Systane] Systane Ultra 0.4-0.3 % Systane Ultra 0.4-0.3 % 06/30/2020 12:00:00 AM EST active Systane Ultra 0.4 -0.3 % eCW1 ([facility]) Optifoam Gentle Foam Dressings UNK 06/30/2020 12:00:00 AM EST active Optifoam Gentle Foam Dressings eCW1 ([facility]) Optifoam Gentle Foam Dressings UNK 06/30/2020 12:00:00 AM EST active Optifoam Gentle Foam Dressings eCW1 ([facility]) Optifoam Gentle Foam Dressings UNK 06/30/2020 12:00:00 AM EST active Optifoam Gentle Foam Dressings eCW1 ([facility]) Optifoam Gentle Foam Dressings UNK 06/30/2020 12:00:00 AM EST active Optifoam Gentle Foam Dressings eCW1 ([facility]) Polyethylene Glycol 400 4 MG/ML / Propyl meliton glycol 3 MG/ML Ophthalmic Solution [Systane] Systane Ultra 0.4-0.3 % Systane Ultra 0.4-0.3 % 06/30/2020 12:00:00 AM EST active Systane Ultra 0.4 -0.3 % eCW1 ([facility]) Optifoam Gentle Foam Dressings UNK 06/30/2020 12:00:00 AM EST active Optifoam Gentle Foam Dressings eCW1 ([facility]) Optifoam Gentle Foam Dressings UNK 06/30/2020 12:00:00 AM EST active Optifoam Gentle Foam Dressings eCW1 ([facility]) Polyethylene Glycol 400 4 MG/ML / Propyl meliton glycol 3 MG/ML Ophthalmic Solution [Systane] Systane Ultra 0.4-0.3 % Systane Ultra 0.4-0.3 % 06/30/2020 12:00:00 AM EST active Systane Ultra 0.4 -0.3 % eCW1 ([facility]) Optifoam Gentle Foam Dressings UNK 06/30/2020 12:00:00 AM EST active Optifoam Gentle Foam Dressings eCW1 ([facility]) Polyethylene Glycol 400 4 MG/ML / Propyl meliton glycol 3 MG/ML Ophthalmic Solution [Systane] Systane Ultra 0.4-0.3 % Systane Ultra 0.4-0.3 % 06/30/2020 12:00:00 AM EST active Systane Ultra 0.4 -0.3 % eCW1 ([facility]) Optifoam Gentle Foam Dressings UNK 06/30/2020 12:00:00 AM EST active Optifoam Gentle Foam Dressings eCW1 ([facility]) Optifoam Gentle Foam Dressings UNK 06/30/2020 12:00:00 AM EST active Optifoam Gentle Foam Dressings eCW1 ([facility]) Optifoam Gentle Foam Dressings UNK 06/30/2020 12:00:00 AM EST active Optifoam Gentle Foam Dressings eCW1 ([facility]) Optifoam Gentle Foam Dressings UNK 06/30/2020 12:00:00 AM EST active Optifoam Gentle Foam Dressings eCW1 ([facility]) Optifoam Gentle Foam Dressings UNK 06/30/2020 12:00:00 AM EST active Optifoam Gentle Foam Dressings eCW1 ([facility]) Polyethylene Glycol 400 4 MG/ML / Propyl meliton glycol 3 MG/ML Ophthalmic Solution [Systane] Systane Ultra 0.4-0.3 % Systane Ultra 0.4-0.3 % 06/30/2020 12:00:00 AM EST active Systane Ultra 0.4 -0.3 % eCW1 ([facility]) Optifoam Gentle Foam Dressings UNK 06/30/2020 12:00:00 AM EST active Optifoam Gentle Foam Dressings eCW1 ([facility]) Polyethylene Glycol 400 4 MG/ML / Propyl meliton glycol 3 MG/ML Ophthalmic Solution [Systane] Systane Ultra 0.4-0.3 % Systane Ultra 0.4-0.3 % 06/30/2020 12:00:00 AM EST active Systane Ultra 0.4 -0.3 % eCW1 ([facility]) Polyethylene Glycol 400 4 MG/ML / Propyl meliton glycol 3 MG/ML Ophthalmic Solution [Systane] Systane Ultra 0.4-0.3 % Systane Ultra 0.4-0.3 % 06/30/2020 12:00:00 AM EST active Systane Ultra 0.4 -0.3 % eCW1 ([facility]) Optifoam Gentle Foam Dressings UNK 06/30/2020 12:00:00 AM EST active Optifoam Gentle Foam Dressings eCW1 ([facility]) Optifoam Gentle Foam Dressings UNK 06/30/2020 12:00:00 AM EST active Optifoam Gentle Foam Dressings eCW1 ([facility]) Optifoam Gentle Foam Dressings UNK 06/30/2020 12:00:00 AM EST active Optifoam Gentle Foam Dressings eCW1 ([facility]) Optifoam Gentle Foam Dressings UNK 06/30/2020 12:00:00 AM EST active Optifoam Gentle Foam Dressings eCW1 ([facility]) Optifoam Gentle Foam Dressings UNK 06/30/2020 12:00:00 AM EST active Optifoam Gentle Foam Dressings eCW1 ([facility]) Polyethylene Glycol 400 4 MG/ML / Propyl meliton glycol 3 MG/ML Ophthalmic Solution [Systane] Systane Ultra 0.4-0.3 % Systane Ultra 0.4-0.3 % 06/30/2020 12:00:00 AM EST active Systane Ultra 0.4 -0.3 % eCW1 ([facility]) Polyethylene Glycol 400 4 MG/ML / Propyl meliton glycol 3 MG/ML Ophthalmic Solution [Systane] Systane Ultra 0.4-0.3 % Systane Ultra 0.4-0.3 % 06/30/2020 12:00:00 AM EST active Systane Ultra 0.4 -0.3 % eCW1 ([facility]) Optifoam Gentle Foam Dressings UNK 06/30/2020 12:00:00 AM EST active Optifoam Gentle Foam Dressings eCW1 ([facility]) Polyethylene Glycol 400 4 MG/ML / Propyl meliton glycol 3 MG/ML Ophthalmic Solution [Systane] Systane Ultra 0.4-0.3 % Systane Ultra 0.4-0.3 % 06/30/2020 12:00:00 AM EST active Systane Ultra 0.4 -0.3 % eCW1 ([facility]) Optifoam Gentle Foam Dressings UNK 06/30/2020 12:00:00 AM EST active Optifoam Gentle Foam Dressings eCW1 ([facility]) Optifoam Gentle Foam Dressings UNK 06/30/2020 12:00:00 AM EST active Optifoam Gentle Foam Dressings eCW1 ([facility]) Optifoam Gentle Foam Dressings UNK 06/30/2020 12:00:00 AM EST active Optifoam Gentle Foam Dressings eCW1 ([facility]) Optifoam Gentle Foam Dressings UNK 06/30/2020 12:00:00 AM EST active Optifoam Gentle Foam Dressings eCW1 ([facility]) Optifoam Gentle Foam Dressings UNK 06/30/2020 12:00:00 AM EST active Optifoam Gentle Foam Dressings eCW1 ([facility]) Optifoam Gentle Foam Dressings UNK 06/30/2020 12:00:00 AM EST active Optifoam Gentle Foam Dressings eCW1 ([facility]) Optifoam Gentle Foam Dressings UNK 06/30/2020 12:00:00 AM EST active Optifoam Gentle Foam Dressings eCW1 ([facility]) Polyethylene Glycol 400 4 MG/ML / Propyl meliton glycol 3 MG/ML Ophthalmic Solution [Systane] Systane Ultra 0.4-0.3 % Systane Ultra 0.4-0.3 % 06/30/2020 12:00:00 AM EST active Systane Ultra 0.4 -0.3 % eCW1 ([facility]) Optifoam Gentle Foam Dressings UNK 06/30/2020 12:00:00 AM EST active Optifoam Gentle Foam Dressings eCW1 ([facility]) Polyethylene Glycol 400 4 MG/ML / Propyl meliton glycol 3 MG/ML Ophthalmic Solution [Systane] Systane Ultra 0.4-0.3 % Systane Ultra 0.4-0.3 % 06/30/2020 12:00:00 AM EST active Systane Ultra 0.4 -0.3 % eCW1 ([facility]) Optifoam Gentle Foam Dressings UNK 06/30/2020 12:00:00 AM EST active Optifoam Gentle Foam Dressings eCW1 ([facility]) Optifoam Gentle Foam Dressings UNK 06/30/2020 12:00:00 AM EST active Optifoam Gentle Foam Dressings eCW1 ([facility]) Optifoam Gentle Foam Dressings UNK 06/30/2020 12:00:00 AM EST active Optifoam Gentle Foam Dressings eCW1 ([facility]) Optifoam Gentle Foam Dressings UNK 06/30/2020 12:00:00 AM EST active Optifoam Gentle Foam Dressings eCW1 ([facility]) Polyethylene Glycol 400 4 MG/ML / Propyl meliton glycol 3 MG/ML Ophthalmic Solution [Systane] Systane Ultra 0.4-0.3 % Systane Ultra 0.4-0.3 % 06/30/2020 12:00:00 AM EST active Systane Ultra 0.4 -0.3 % eCW1 ([facility]) Optifoam Gentle Foam Dressings UNK 06/30/2020 12:00:00 AM EST active Optifoam Gentle Foam Dressings eCW1 ([facility]) Optifoam Gentle Foam Dressings UNK 06/30/2020 12:00:00 AM EST active Optifoam Gentle Foam Dressings eCW1 ([facility]) COMPRESSION STOCKINGS 15-20 mmHg UNK 06/27/2020 12:00:00 AM EST active COMPRESSION STOCKINGS 15-20 mmHg eCW1 ([facility]) COMPRESSION STOCKINGS 15-20 mmHg UNK 06/27/2020 12:00:00 AM EST active COMPRESSION STOCKINGS 15-20 mmHg eCW1 ([facility]) COMPRESSION STOCKINGS 15-20 mmHg UNK 06/27/2020 12:00:00 AM EST active COMPRESSION STOCKINGS 15-20 mmHg eCW1 ([facility]) COMPRESSION STOCKINGS 15-20 mmHg UNK 06/27/2020 12:00:00 AM EST active COMPRESSION STOCKINGS 15-20 mmHg eCW1 ([facility]) COMPRESSION STOCKINGS 15-20 mmHg UNK 06/27/2020 12:00:00 AM EST active COMPRESSION STOCKINGS 15-20 mmHg eCW1 ([facility]) COMPRESSION STOCKINGS 15-20 mmHg UNK 06/27/2020 12:00:00 AM EST active COMPRESSION STOCKINGS 15-20 mmHg eCW1 ([facility]) COMPRESSION STOCKINGS 15-20 mmHg UNK 06/27/2020 12:00:00 AM EST active COMPRESSION STOCKINGS 15-20 mmHg eCW1 ([facility]) COMPRESSION STOCKINGS 15-20 mmHg UNK 06/27/2020 12:00:00 AM EST active COMPRESSION STOCKINGS 15-20 mmHg eCW1 ([facility]) COMPRESSION STOCKINGS 15-20 mmHg UNK 06/27/2020 12:00:00 AM EST active COMPRESSION STOCKINGS 15-20 mmHg eCW1 ([facility]) COMPRESSION STOCKINGS 15-20 mmHg UNK 06/27/2020 12:00:00 AM EST active COMPRESSION STOCKINGS 15-20 mmHg eCW1 ([facility]) COMPRESSION STOCKINGS 15-20 mmHg UNK 06/27/2020 12:00:00 AM EST active COMPRESSION STOCKINGS 15-20 mmHg eCW1 ([facility]) COMPRESSION STOCKINGS 15-20 mmHg UNK 06/27/2020 12:00:00 AM EST active COMPRESSION STOCKINGS 15-20 mmHg eCW1 ([facility]) COMPRESSION STOCKINGS 15-20 mmHg UNK 06/27/2020 12:00:00 AM EST active COMPRESSION STOCKINGS 15-20 mmHg eCW1 ([facility]) COMPRESSION STOCKINGS 15-20 mmHg UNK 06/27/2020 12:00:00 AM EST active COMPRESSION STOCKINGS 15-20 mmHg eCW1 ([facility]) COMPRESSION STOCKINGS 15-20 mmHg UNK 06/27/2020 12:00:00 AM EST active COMPRESSION STOCKINGS 15-20 mmHg eCW1 ([facility]) COMPRESSION STOCKINGS 15-20 mmHg UNK 06/27/2020 12:00:00 AM EST active COMPRESSION STOCKINGS 15-20 mmHg eCW1 ([facility]) COMPRESSION STOCKINGS 15-20 mmHg UNK 06/27/2020 12:00:00 AM EST active COMPRESSION STOCKINGS 15-20 mmHg eCW1 ([facility]) COMPRESSION STOCKINGS 15-20 mmHg UNK 06/27/2020 12:00:00 AM EST active COMPRESSION STOCKINGS 15-20 mmHg eCW1 ([facility]) COMPRESSION STOCKINGS 15-20 mmHg UNK 06/27/2020 12:00:00 AM EST active COMPRESSION STOCKINGS 15-20 mmHg eCW1 ([facility]) COMPRESSION STOCKINGS 15-20 mmHg UNK 06/27/2020 12:00:00 AM EST active COMPRESSION STOCKINGS 15-20 mmHg eCW1 ([facility]) MetFORMIN HCl 500 MG MetFORMIN HCl 06/27/2020 12:00:00 AM EST 50 0.0 {mg} completed NETSMART ([facility]) Ferrous Sulfate 325 (65 Fe) MG Ferrous Sulfate 06/27/2020 12:00:00 AM EST completed NETSMART ([facility]) Vitamin D3 1000 UNIT Vitamin D3 06/27/2020 12:00:00 AM EST 5000. 0 [facility]Units} [facility] Glimepiride 4 MG Glimepiride 06/27/2020 12:00:00 AM EST 4.0 {mg} completed NETSMART ([facility]) COMPRESSION STOCKINGS 15-20 mmHg UNK 06/27/2020 12:00:00 AM EST active COMPRESSION STOCKINGS 15-20 mmHg eCW1 ([facility]) COMPRESSION STOCKINGS 15-20 mmHg UNK 06/27/2020 12:00:00 AM EST active COMPRESSION STOCKINGS 15-20 mmHg eCW1 ([facility]) COMPRESSION STOCKINGS 15-20 mmHg UNK 06/27/2020 12:00:00 AM EST active COMPRESSION STOCKINGS 15-20 mmHg eCW1 ([facility]) COMPRESSION STOCKINGS 15-20 mmHg UNK 06/27/2020 12:00:00 AM EST active COMPRESSION STOCKINGS 15-20 mmHg eCW1 ([facility]) Fluticasone Propionate 50 MCG/ACT Fluticasone Propionate 04/2020 12:00:00 AM EST completed NETSMAR T ([facility]) Tresiba FlexTouch 200 UNIT/ML Tresiba FlexTouch 06/27/2020 12:00:00 AM EST 10.0 {unit} completed NETSMART ( [facility]) Eliquis 5 MG Eliquis 06/27/2020 12:00:00 AM EST 5.0 {mg} completed NETSMART ([facility] ) COMPRESSION STOCKINGS 15-20 mmHg UNK 06/27/2020 12:00:00 AM EST active COMPRESSION STOCKINGS 15-20 mmHg eCW1 ([facility]) Torsemide 20 MG Torsemide 06/27/2020 12:00:00 AM EST 30.0 {mg} completed NETSMART ([facility]) Potassium Chloride ER 10 MEQ Potassium Chloride ER 06/27/2020 12:00 :00 AM EST 10.0 {mEq} completed NETSMART ([facility]) COMPRESSION STOCKINGS 15-20 mmHg UNK 06/27/2020 12:00:00 AM EST active COMPRESSION STOCKINGS 15-20 mmHg eCW1 ([facility]) Aspirin EC Adult Low Strength 81 MG Aspirin EC Adult Low Str ength 06/27/2020 12:00:00 AM EST 81.0 {mg} completed NETSMART ([facility]) Vitamin B12 1000 MCG Vitamin B12 06/27/2020 12:00:00 AM EST 1000 .0 {mcg} completed NETSMART ([facility]) Rosuvastatin Calcium 20 MG Rosuvastatin Calcium 06/27/2020 12:00:00 AM EST 20.0 {mg} completed NETSMART ([facility]) Omeprazole 40 MG Omeprazole 06/27/2020 12:00:00 AM EST 40.0 {mg} completed NETSMART ([facility]) COMPRESSION STOCKINGS 15-20 mmHg UNK 06/27/2020 12:00:00 AM EST active COMPRESSION STOCKINGS 15-20 mmHg eCW1 ([facility]) Allopurinol 300 MG Allopurinol 06/27/2020 12:00:00 AM EST 300.0 {mg} completed NETSMART ([facility]) COMPRESSION STOCKINGS 15-20 mmHg UNK 06/27/2020 12:00:00 AM EST active COMPRESSION STOCKINGS 15-20 mmHg eCW1 ([facility]) COMPRESSION STOCKINGS 15-20 mmHg UNK 06/27/2020 12:00:00 AM EST active COMPRESSION STOCKINGS 15-20 mmHg eCW1 ([facility]) COMPRESSION STOCKINGS 15-20 mmHg UNK 06/27/2020 12:00:00 AM EST active COMPRESSION STOCKINGS 15-20 mmHg eCW1 ([facility]) COMPRESSION STOCKINGS 15-20 mmHg UNK 06/27/2020 12:00:00 AM EST active COMPRESSION STOCKINGS 15-20 mmHg eCW1 ([facility]) COMPRESSION STOCKINGS 15-20 mmHg UNK 06/27/2020 12:00:00 AM EST active COMPRESSION STOCKINGS 15-20 mmHg eCW1 ([facility]) COMPRESSION STOCKINGS 15-20 mmHg UNK 06/27/2020 12:00:00 AM EST active COMPRESSION STOCKINGS 15-20 mmHg eCW1 ([facility]) COMPRESSION STOCKINGS 15-20 mmHg UNK 06/27/2020 12:00:00 AM EST active COMPRESSION STOCKINGS 15-20 mmHg eCW1 ([facility]) COMPRESSION STOCKINGS 15-20 mmHg UNK 06/27/2020 12:00:00 AM EST active COMPRESSION STOCKINGS 15-20 mmHg eCW1 ([facility]) COMPRESSION STOCKINGS 15-20 mmHg UNK 06/27/2020 12:00:00 AM EST active COMPRESSION STOCKINGS 15-20 mmHg eCW1 ([facility]) COMPRESSION STOCKINGS 15-20 mmHg UNK 06/27/2020 12:00:00 AM EST active COMPRESSION STOCKINGS 15-20 mmHg eCW1 ([facility]) COMPRESSION STOCKINGS 15-20 mmHg UNK 06/27/2020 12:00:00 AM EST active COMPRESSION STOCKINGS 15-20 mmHg eCW1 ([facility]) COMPRESSION STOCKINGS 15-20 mmHg UNK 06/27/2020 12:00:00 AM EST active COMPRESSION STOCKINGS 15-20 mmHg eCW1 ([facility]) Diclofenac Sodium 1 % Diclofenac Sodium 06/27/2020 12:00:00 AM EST completed NETSMART ([facility]) COMPRESSION STOCKINGS 15-20 mmHg UNK 06/27/2020 12:00:00 AM EST active COMPRESSION STOCKINGS 15-20 mmHg eCW1 ([facility]) COMPRESSION STOCKINGS 15-20 mmHg UNK 06/27/2020 12:00:00 AM EST active COMPRESSION STOCKINGS 15-20 mmHg eCW1 ([facility]) 20 mg 06/22/2020 12:00:00 AM EST tablet [...] AT BEDTIME SOLD: 08/15/2020 [facility] Pen Seymour 31G X 6 MM Pen Seymour 31G X 6 MM 05/13/2020 12:00:[address] active Pen Seymour 31G X 6 MM eC W1 ([facility]) Pen Seymour UNK 05/13/2020 12:00:00 AM EST active Pen Seymour eCW1 ([facility]) Pen Seymour UNK 05/13/2020 12:00:00 AM EST active Pen [place]ymour eCW1 ([facility]) Tresiba FlexTouch 200 UNIT/ML Tresiba FlexTouch 200 UNIT/ML 05/13/2020 12:00:00 AM EST active Tresiba FlexTouch 200 UNIT/ML eCW1 ([facility]) Pen Seymour UNK 05/13/2020 12:00:00 AM EST active Pen Seymour eCW1 ([facility]) Pen Seymour UNK 05/13/2020 12:00:00 AM EST active Pen Seymour eCW1 ([facility]) Pen Seymour 31G X 5 MM Pen Seymour 31G X 5 MM 05/13/2020 12:00:[address] active Pen Seymour 31G X 5 MM eC W1 ([facility]) Pen Seymour UNK 05/13/2020 12:00:00 AM EST active Pen Seymour eCW1 ([facility]) Pen Seymour UNK 05/13/2020 12:00:00 AM EST active Pen [place]ymour eCW1 ([facility]) Tresiba FlexTouch 200 UNIT/ML Tresiba FlexTouch 200 UNIT/ML 05/13/2020 12:00:00 AM EST active Tresiba FlexTouch 200 UNIT/ML eCW1 ([facility]) Pen Seymour 31G X 6 MM Pen Seymour 31G X 6 MM 05/13/2020 12:00:[address] active Pen Seymour 31G X 6 MM eC W1 ([facility]) Pen Seymour 31G X 6 MM Pen Seymour 31G X 6 MM 05/13/2020 12:00:[address] active Pen Seymour 31G X 6 MM eC W1 ([facility]) Pen Seymour UNK 05/13/2020 12:00:00 AM EST active Pen Seymour eCW1 ([facility]) Pen Seymour 31G X 6 MM Pen Seymour 31G X 6 MM 05/13/2020 12:00:[address] active Pen Seymour 31G X 6 MM eC W1 ([facility]) Pen Seymour UNK 05/13/2020 12:00:00 AM EST active Pen [place]ymour eCW1 ([facility]) Tresiba FlexTouch 200 UNIT/ML Tresiba FlexTouch 200 UNIT/ML 05/13/2020 12:00:00 AM EST active Tresiba FlexTouch 200 UNIT/ML eCW1 ([facility]) Pen Seymour UNK 05/13/2020 12:00:00 AM EST active Pen Seymour eCW1 ([facility]) Tresiba FlexTouch 200 UNIT/ML Tresiba FlexTouch 200 UNIT/ML 05/13/2020 12:00:00 AM EST active Tresiba FlexTouch 200 UNIT/ML eCW1 ([facility]) Pen Seymour UNK 05/13/2020 12:00:00 AM EST active Pen Seymour eCW1 ([facility]) Pen Seymour UNK 05/13/2020 12:00:00 AM EST active Pen Seymour eCW1 ([facility]) Pen Seymour 31G X 6 MM Pen Seymour 31G X 6 MM 05/13/2020 12:00:[address] active Pen Seymour 31G X 6 MM eC W1 ([facility]) Pen Seymour UNK 05/13/2020 12:00:00 AM EST active Pen Seymour eCW1 ([facility]) Pen Seymour UNK 05/13/2020 12:00:00 AM EST active Pen [place]our eCW1 ([facility]) Tresiba FlexTouch 200 UNIT/ML Tresiba FlexTouch 200 UNIT/ML 05/13/2020 12:00:00 AM EST active Tresiba FlexTouch 200 UNIT/ML eCW1 ([facility]) Pen Seymour UNK 05/13/2020 12:00:00 AM EST active Pen Seymour eCW1 ([facility]) Pen Seymour UNK 05/13/2020 12:00:00 AM EST active Pen Seymour eCW1 ([facility]) Pen Seymour UNK 05/13/2020 12:00:00 AM EST active Pen [place]our eCW1 ([facility]) Tresiba FlexTouch 200 UNIT/ML Tresiba FlexTouch 200 UNIT/ML 05/13/2020 12:00:00 AM EST active Tresiba FlexTouch 200 UNIT/ML eCW1 ([facility]) Tresiba FlexTouch 200 UNIT/ML Tresiba FlexTouch 200 UNIT/ML 05/13/2020 12:00:00 AM EST active Tresiba FlexTouch 200 UNIT/ML eCW1 ([facility]) Tresiba FlexTouch 200 UNIT/ML Tresiba FlexTouch 200 UNIT/ML 05/13/2020 12:00:00 AM EST active Tresiba FlexTouch 200 UNIT/ML eCW1 ([facility]) Pen Seymour 31G X 6 MM Pen Seymour 31G X 6 MM 05/13/2020 12:00:[address] active Pen Seymour 31G X 6 MM eC W1 ([facility]) Pen Seymour UNK 05/13/2020 12:00:00 AM EST active Pen Seymour eCW1 ([facility]) Pen Seymour UNK 05/13/2020 12:00:00 AM EST active Pen [place] eCW1 ([facility]) Tresiba FlexTouch 200 UNIT/ML Tresiba FlexTouch 200 UNIT/ML 05/13/2020 12:00:00 AM EST active Tresiba FlexTouch 200 UNIT/ML eCW1 ([facility]) Tresiba FlexTouch 200 UNIT/ML Tresiba FlexTouch 200 UNIT/ML 05/13/2020 12:00:00 AM EST active Tresiba FlexTouch 200 UNIT/ML eCW1 ([facility]) Pen Seymour UNK 05/13/2020 12:00:00 AM EST active Pen Seymour eCW1 ([facility]) Pen Seymour UNK 05/13/2020 12:00:00 AM EST active Pen [place] eCW1 ([facility]) Tresiba FlexTouch 200 UNIT/ML Tresiba FlexTouch 200 UNIT/ML 05/13/2020 12:00:00 AM EST active Tresiba FlexTouch 200 UNIT/ML eCW1 ([facility]) 31 gauge x 3/16" 05/13/2020 12:00:00 AM EST needle 30 USE DIRECTED ONCE DAILY USE DIRECTED ONCE DAILY SOLD: 06/16/2020 [facility] Tresiba FlexTouch 200 UNIT/ML Tresiba FlexTouch 200 UNIT/ML 05/13/2020 12:00:00 AM EST active Tresiba FlexTouch 200 UNIT/ML eCW1 ([facility]) Pen Seymour UNK 05/13/2020 12:00:00 AM EST active Pen Seymour eCW1 ([facility]) Tresiba FlexTouch 200 UNIT/ML Tresiba FlexTouch 200 UNIT/ML 05/13/2020 12:00:00 AM EST active Tresiba FlexTouch 200 UNIT/ML eCW1 ([facility]) Pen Seymour UNK 05/13/2020 12:00:00 AM EST active Pen [place]our eCW1 ([facility]) Tresiba FlexTouch 200 UNIT/ML Tresiba FlexTouch 200 UNIT/ML 05/13/2020 12:00:00 AM EST active Tresiba FlexTouch 200 UNIT/ML eCW1 ([facility]) Pen Seymour 31G X 6 MM Pen Seymour 31G X 6 MM 05/13/2020 12:00:[address] active Pen Seymour 31G X 6 MM eC W1 ([facility]) Pen Seymour UNK 05/13/2020 12:00:00 AM EST active Pen [place]ymour eCW1 ([facility]) Tresiba FlexTouch 200 UNIT/ML Tresiba FlexTouch 200 UNIT/ML 05/13/2020 12:00:00 AM EST active Tresiba FlexTouch 200 UNIT/ML eCW1 ([facility]) Tresiba FlexTouch 200 UNIT/ML Tresiba FlexTouch 200 UNIT/ML 05/13/2020 12:00:00 AM EST active Tresiba FlexTouch 200 UNIT/ML eCW1 ([facility]) Pen Seymour UNK 05/13/2020 12:00:00 AM EST active Pen Seymour eCW1 ([facility]) Pen Seymour UNK 05/13/2020 12:00:00 AM EST active Pen [place]ymour eCW1 ([facility]) Pen Seymour 31G X 5 MM Pen Seymour 31G X 5 MM 05/13/2020 12:00:[address] active Pen [place]ym[place] 31G X 5 MM eC W1 ([facility]) Tresiba FlexTouch 200 UNIT/ML Tresiba FlexTouch 200 UNIT/ML 05/13/2020 12:00:00 AM EST active Tresiba FlexTouch 200 UNIT/ML eCW1 ([facility]) Tresiba FlexTouch 200 UNIT/ML Tresiba FlexTouch 200 UNIT/ML 05/13/2020 12:00:00 AM EST active Tresiba FlexTouch 200 UNIT/ML eCW1 ([facility]) Tresiba FlexTouch 200 UNIT/ML Tresiba FlexTouch 200 UNIT/ML 05/13/2020 12:00:00 AM EST active Tresiba FlexTouch 200 UNIT/ML eCW1 ([facility]) 31 gauge x 3/16" 05/13/2020 12:00:00 AM EST needle 30 USE DIRECTED ONCE DAILY USE DIRECTED ONCE DAILY SOLD: 05/17/2020 [facility] Tresiba FlexTouch 200 UNIT/ML Tresiba FlexTouch 200 UNIT/ML 05/13/2020 12:00:00 AM EST active Tresiba FlexTouch 200 UNIT/ML eCW1 ([facility]) Pen Seymour 31G X 5 MM Pen Seymour 31G X 5 MM 05/13/2020 12:00:[address] active Pen [place]ym[place] 31G X 5 MM eC W1 ([facility]) Tresiba FlexTouch 200 UNIT/ML Tresiba FlexTouch 200 UNIT/ML 05/13/2020 12:00:00 AM EST active Tresiba FlexTouch 200 UNIT/ML eCW1 ([facility]) Pen Seymour 31G X 6 MM Pen Seymour 31G X 6 MM 05/13/2020 12:00:[address] active Pen [place]ymour 31G X 6 MM eC W1 ([facility]) Pen Seymour 31G X 5 MM Pen Seymour 31G X 5 MM 05/13/2020 12:00:[address] active Pen [place]ym[place] 31G X 5 MM eC W1 ([facility]) Tresiba FlexTouch 200 UNIT/ML Tresiba FlexTouch 200 UNIT/ML 05/13/2020 12:00:00 AM EST active Tresiba FlexTouch 200 UNIT/ML eCW1 ([facility]) Tresiba FlexTouch 200 UNIT/ML Tresiba FlexTouch 200 UNIT/ML 05/13/2020 12:00:00 AM EST active Tresiba FlexTouch 200 UNIT/ML eCW1 ([facility]) Pen Seymour UNK 05/13/2020 12:00:00 AM EST active Pen [place]ymour eCW1 ([facility]) Pen Seymour UNK 05/13/2020 12:00:00 AM EST active Pen [place]ymour eCW1 ([facility]) Pen Seymour 31G X 5 MM Pen Seymour 31G X 5 MM 05/13/2020 12:00:[address] active Pen [place] 31G X 5 MM eC W1 ([facility]) Tresiba FlexTouch 200 UNIT/ML Tresiba FlexTouch 200 UNIT/ML 05/13/2020 12:00:00 AM EST active Tresiba FlexTouch 200 UNIT/ML eCW1 ([facility]) Pen Seymour 31G X 6 MM Pen Seymour 31G X 6 MM 05/13/2020 12:00:[address] active Pen [place]ym[place] 31G X 6 MM eC W1 ([facility]) 31 gauge x 3/16" 05/13/2020 12:00:00 AM EST needle 30 USE DIRECTED ONCE DAILY USE DIRECTED ONCE DAILY SOLD: 08/15/2020 [facility] Pen Seymour UNK 05/13/2020 12:00:00 AM EST active Pen [place]ymour eCW1 ([facility]) Pen Seymour 31G X 5 MM Pen [place]ymour 31G X 5 MM 05/13/2020 12:00:[address] active Pen [place] 31G X 5 MM eC W1 ([facility]) Tresiba FlexTouch 200 UNIT/ML Tresiba FlexTouch 200 UNIT/ML 05/13/2020 12:00:00 AM EST active Tresiba FlexTouch 200 UNIT/ML eCW1 ([facility]) Pen Seymour 31G X 6 MM Pen [place]ymour 31G X 6 MM 05/13/2020 12:00:[address] active Pen [place] 31G X 6 MM eC W1 ([facility]) Tresiba FlexTouch 200 UNIT/ML Tresiba FlexTouch 200 UNIT/ML 05/13/2020 12:00:00 AM EST active Tresiba FlexTouch 200 UNIT/ML eCW1 ([facility]) Pen Seymour UNK 05/13/2020 12:00:00 AM EST active Pen [place]our eCW1 ([facility]) Pen Seymour UNK 05/13/2020 12:00:00 AM EST active Pen [place] eCW1 ([facility]) Pen Seymour UNK 05/13/2020 12:00:00 AM EST active Pen [place] eCW1 ([facility]) Tresiba FlexTouch 200 UNIT/ML Tresiba FlexTouch 200 UNIT/ML 05/13/2020 12:00:00 AM EST active Tresiba FlexTouch 200 UNIT/ML eCW1 ([facility]) Tresiba FlexTouch 200 UNIT/ML Tresiba FlexTouch 200 UNIT/ML 05/13/2020 12:00:00 AM EST active Tresiba FlexTouch 200 UNIT/ML eCW1 ([facility]) 31 gauge x 3/16" 05/13/2020 12:00:00 AM EST needle 30 USE DIRECTED ONCE DAILY USE DIRECTED ONCE DAILY SOLD: 07/16/2020 [facility] Pen Seymour UNK 05/13/2020 12:00:00 AM EST active Pen [place]ymour eCW1 ([facility]) Pen Seymour 31G X 6 MM Pen Seymour 31G X 6 MM 05/13/2020 12:00:[address] active Pen [place]ymour 31G X 6 MM eC W1 ([facility]) Pen Seymour 31G X 6 MM Pen [place]ymour 31G X 6 MM 05/13/2020 12:00:[address] active Pen [place] 31G X 6 MM eC W1 ([facility]) Tresiba FlexTouch 200 UNIT/ML Tresiba FlexTouch 200 UNIT/ML 05/13/2020 12:00:00 AM EST active Tresiba FlexTouch 200 UNIT/ML eCW1 ([facility]) Pen Seymour 31G X 5 MM Pen [place]ymour 31G X 5 MM 05/13/2020 12:00:[address] active Pen [place]ym[place] 31G X 5 MM eC W1 ([facility]) 20 mg 04/26/2020 12:00:00 AM EST tablet 80 TAKE ONE TABLET BY MOUTH EVERY MORNING TAKE ONE TABLET BY MOUTH EVERY MORNING SOLD: 05/10/2020 [facility] 20 mg 04/26/2020 12:00:00 AM EST tablet 10 TAKE ONE TABLET BY MOUTH EVERY MORNING TAKE ONE TABLET BY MOUTH EVERY MORNING SOLD: 04/28/2020 [facility] 03/14/2020 12:00:00 AM EST misc 180 TEST [...] BY MOUTH ONCE A DAY SOLD: 02/22/2020 [facility] torsemide 20 MG Oral Tablet Torsemide 20 MG Torsemide 20 MG 02/17/2020 12:00:00 AM EDT 1.0 {tablet} active Torsemide 2 0 MG eCW1 ([facility]) torsemide 10 MG Oral Tablet Torsemide 10 MG Torsemide 10 MG 02/17/2020 12:00:00 AM EDT 1.0 {tablet} active Torsemide 1 0 MG eCW1 ([facility]) torsemide 20 MG Oral Tablet Torsemide 20 MG Torsemide 20 MG 02/17/2020 12:00:00 AM EDT 1.0 {tablet} active Torsemide 2 0 MG eCW1 ([facility]) torsemide 10 MG Oral Tablet Torsemide 10 MG Torsemide 10 MG 02/17/2020 12:00:00 AM EDT 1.0 {tablet} active Torsemide 1 0 MG eCW1 ([facility]) torsemide 20 MG Oral Tablet Torsemide 20 MG Torsemide 20 MG 02/17/2020 12:00:00 AM EDT 1.0 {tablet} active Torsemide 2 0 MG eCW1 ([facility]) torsemide 10 MG Oral Tablet Torsemide 10 MG Torsemide 10 MG 02/17/2020 12:00:00 AM EDT 1.0 {tablet} active Torsemide 1 0 MG eCW1 ([facility]) 10 mg 02/17/2020 12:00:00 AM EDT tablet 30 TAKE ONE TABLET BY MOUTH EVERY DAY TAKE ONE TABLET BY MOUTH EVERY DAY SOLD: 02/17/2020 [facility] torsemide 10 MG Oral Tablet Torsemide 10 MG Torsemide 10 MG 02/17/2020 12:00:00 AM EDT 1.0 {tablet} active Torsemide 1 0 MG eCW1 ([facility]) torsemide 10 MG Oral Tablet Torsemide 10 MG Torsemide 10 MG 02/17/2020 12:00:00 AM EDT 1.0 {tablet} active Torsemide 1 0 MG eCW1 ([facility]) torsemide 10 MG Oral Tablet Torsemide 10 MG Torsemide 10 MG 02/17/2020 12:00:00 AM EDT 1.0 {tablet} active Torsemide 1 0 MG eCW1 ([facility]) 500 mg 02/06/2020 12:00:00 AM EDT tablet extended release 24 hr 30 TAKE 1 TABLET ONCE DAILY WITH EVENING MEAL TAKE 1 TABLET ONCE DAILY WITH EVENING MEAL SOLD: 02/08/2020 [facility] MetFORMIN HCl ER 500 MG MetFORMIN HCl ER 500 MG 02/03/2020 12:00:00 AM EDT 1.0 {tablet_with_evening_meal} active MetF ORMIN HCl ER 500 MG eCW1 ([facility]) MetFORMIN HCl ER 500 MG MetFORMIN HCl ER 500 MG 02/03/2020 12:00:00 AM EDT 1.0 {tablet_with_evening_meal} active MetF ORMIN HCl ER 500 MG eCW1 ([facility]) MetFORMIN HCl ER 500 MG MetFORMIN HCl ER 500 MG 02/03/2020 12:00:00 AM EDT 1.0 {tablet_with_evening_meal} active MetF ORMIN HCl ER 500 MG eCW1 ([facility]) MetFORMIN HCl ER 500 MG MetFORMIN HCl ER 500 MG 02/03/2020 12:00:00 AM EDT 1.0 {tablet_with_evening_meal} active MetF ORMIN HCl ER 500 MG eCW1 ([facility]) MetFORMIN HCl ER 500 MG MetFORMIN HCl ER 500 MG 02/03/2020 12:00:00 AM EDT 1.0 {tablet_with_evening_meal} active MetF ORMIN HCl ER 500 MG eCW1 ([facility]) 24 HR Metformin hydrochloride 500 MG Ext ended Release Oral Tablet MetFORMIN HCl ER 500 MG MetFORMIN HCl ER 500 MG 02/03/2020 12:00:00 AM EDT 1.0 {tablet_with_evening_meal} active MetFO RMIN HCl ER 500 MG eCW1 ([facility]) BLOOD SUGAR DIAGNOSTIC 01/23/2020 12:00:00 AM EDT strip 100 USE TWO TIMES A DAY USE TWO TIMES A DAY SOLD: 06/24/2020 [facility] BLOOD SUGAR DIAGNOSTIC 01/23/2020 12:00:00 AM EDT strip 100 USE TWO TIMES A DAY USE TWO TIMES A DAY SOLD: 05/02/2020 [facility] BLOOD SUGAR DIAGNOSTIC 01/23/2020 12:00:00 AM [...] IN EACH NOSTRIL EVERY MORNING SOLD: 05/03/2020 [facility] Insurance Providers Payer name Policy type / Coverage type Policy ID Covered green party ID Covered green party's relationship to katz Policy Katz Plan Information MEDICARE [id number] SP [id number] A MEDICARE [id number] SP [id number] A MEDICARE COMPLETE [id number] SP [id number] MEDICARE COMPLETE [id number] SP [id number] MAL[employer]IAN PROGRESSIVE [id number] SP [id number] TODAYS OPTIONS [id number] SP [id number] AMER PROG TODAYS OPTIONS [id number] Self [id number] AMER PROG TODAYS OPTIONS [id number] Self [id number] [facility] [id number] SP [id number] [employer] [id number] Self [id number] [employer] Commercial [employer] Co. [id number] Nereyda f [id number] ANSI-Medicare Part B [id number] ANSI-Health Maintenance Organization ( O) [id number] ANSI-Medicare Part B [id number] ANSI-Health Maintenance Organization ( O) [id number] ANSI-Medicare Part B [id number] ANSI-Medicare Part B [id number] ANSI-Medicare Part B [id number] ANSI-Medicare Part B [id number] ANSI-Health Maintenance Organization ( O) [id number] ANSI-Health Maintenance Organization ( O) [id number] ANSI-Medicare Part B [id number] ANSI-Medicare Part B [id number] ANSI-Medicare Part B [id number] ANSI-Medicare Part B [id number] ANSI-Health Maintenance Organization ( O) [id number] ANSI-Medicare Part B [id number] ANSI-Medicare Part B [id number] [facility] ( O) [id number] ANSI-Medicare Part B [id number] [facility]-Health Maintenance Organization ( O) [id number] ANSI-Medicare Part B [id number] ANSI-Medicare Part B [id number] ANSI-Health Maintenance Organization ( O) [id number] ANSI-Medicare Part B [id number] TODAYS OPTIONS [id number] SP [id number] ANSI-Medicare Part B [id number] ANSI-Medicare Part B [id number] ANSI-Medicare Part B [id number] ANSI-Medicare Part B [id number] ANSI-Medicare Part B [id number] ANSI-Medicare Part B [id number] ANSI-Medicare Part B [id number] ANSI-Medicare Part B [id number] ANSI-Medicare Part B [id number] ANSI-Medicare Part B [id number] ANSI-Medicare Part B [id number] ANSI-Medicare Part B [id number] ANSI-Medicare Part B [id number] ANSI-Medicare Part B [id number] ANSI-Medicare Part B [id number] ANSI-Medicare Part B [id number] MEDICAID [id number] SP [id number] MEDICARE [id number] SP [id number] A [facility] [id number] SP [id number] TODAYS OPTIONS/MALAWIAN O [id number] S [id number] MALAWIAN PROGRESSIVE [id number] SP [id number] MEDICARE [id number] SP [id number] A MEDICARE COMPLETE [id number] SP [id number] NICHOLE [id number] SP [id number] WELLCARE [id number] SP [id number] NIC[place]LE [id number] SP [id number] MEDICARE [id number] SP [id number] WELLCARE O [id number] S [id number] ANSI-Health Maintenance Organization ( O) [id number] ANSI-Medicare Part B [id number] ANSI-Medicare Part B [id number] ANSI-Medicare Part B [id number] ANSI-Medicare Part B [id number] ANSI-Health Maintenance Organization ( O) [id number] Problems, Conditions, and Diagnoses Code Display Name Description Problem Type Effective Dates Data Source(s) H90.3 [id number] Sensorineural hearing loss (SNHL) of both ears Problem 12/26/2020 12:00:00 AM EDT eCW1 ([facility]) L85.3 [id number] Xerosis cutis Problem 09/27/2020 12:00:00 AM EDT eCW1 ([facility]) D47.2 [id number] 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) Problem 09/27/2020 12:00:00 AM EDT eCW1 ([facility]) G47.33 34381789 Obstructive sleep apnea Problem 09/09/2020 1 2:00:00 AM EDT eCW1 ([facility]) G47.33 [id number] MIHIR (obstructive sleep apnea) Problem 08/23/2020 12:00:00 AM EDT eCW1 ([facility]) L97.421 [id number] Skin ulcer of left heel, limited to break down of skin Problem 07/11/2020 12:00:00 AM EDT eCW1 ([facility]) I67.1 57534354 Internal carotid aneurysm Problem 07/11/2020 12:00:00 AM EDT eCW1 ([facility]) H04.123 [id number] Dry eyes, bilateral Problem 07/11/2020 12:00 :00 AM EDT eCW1 ([facility]) I63.9 314453754 Recurrent cerebrovascular accidents (CVAs ) Problem 07/11/2020 12:00:00 AM EDT eCW1 ([facility]) 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 infarction Problem 06/27/2020 12:00:00 AM EST NETSMART ([facility]) E11.51 Type 2 diabetes mellitus wit h diabetic peripheral angiopathy without gangrene Type 2 diabetes mellitus with diabetic p eripheral angiopathy without gangrene Problem 06/27/2020 12:00:00 AM EST NETSMART ([facility]) I70.201 Unspecified atherosclerosis of [place] arteries of extremities, right leg Unspecified atherosclerosis of [place] arteries of extr emities, right leg Problem 06/27/2020 12:00:00 AM EST NETSMART ([facility]) 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 Problem 06/27/2020 12:00:00 AM EST NETSMART ([facility]) 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 and stage 1 through stage 4 chronic kidney disease, or unspecified chronic kidney disease Hypertensive heart and chronic kidney di sease with heart failure and stage 1 through stage 4 chronic kidney disease, or unspecified chronic kidney disease Problem 06/27/2020 12:00:00 AM EST NETSMART ([facility]) I50.32 Chronic diastolic (congestive) heart sacha lure Chronic diastolic (congestive) heart failure Problem 06/27/2020 12:00:00 AM EST NETSMA RT ([facility]) 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 Problem 06/27/2020 12:00:00 AM EST NETSMART ([facility] ) N18.30 Chronic kidney disease, stage 3 unspecif ied Chronic kidney disease, stage 3 unspecified Problem 06/27/2020 12:00:00 AM EST NETSMART ([facility]) D63.1 Anemia in chronic kidney disease Anemia in chronic kid daniel disease Problem 06/27/2020 12:00:00 AM EST NETSMART ([facility] ) 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, unspecifie d site Gout due to renal impairment, unspecified site Problem 06/27/2020 12:00:00 AM EST NETS MART ([facility]) 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, not intractable, without status epilepticus Localization-related (focal) (partial) s ymptomatic epilepsy and epileptic syndromes with simple partial seizures, not intractable, without status epilepticus Problem 06/27/2020 12:00:00 AM EST NETSMART ([facility]) M47.816 Spondylosis without myelopathy or radicu lopathy, lumbar region Spondylosis without myelopathy or radiculopathy, lumbar region Problem 06/27/2020 12:00:00 AM EST NETSMART ([facility] ) M19.90 Unspecified osteoarthritis, unspecified site Unspecified osteoarthritis, unspecified site Problem 06/27/2020 12:00:00 AM EST NETSMART ([facility]) E53.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 Deficiency of other specified B group vitamins Problem 06/27/2020 12:00:00 AM EST NETSMA RT ([facility]) D50.9 Iron deficiency anemia, unspecified Iron deficie ncy anemia, unspecified Problem 06/27/2020 12:00:00 AM EST NETSMART ([facility]) G47.33 Obstructive sleep apnea (adult) (pediatr ic) Obstructive sleep apnea (adult) (pediatric) Problem 06/27/2020 12:00:00 AM EST NETSMART ([facility]) E66.9 Obesity, unspecified Obesity, unspecified Problem 06/27/2020 12:00:00 AM EST NETSMART ([facility] ) Z87.891 Personal history of nicotine dependence Personal history of nicotine dependence Problem 06/27/2020 12:00:00 AM EST NETSMART ([facility]) Z79.4 assisted (current) use of insulin director long term care (cu rrent) use of insulin Problem 06/27/2020 12:00:00 AM EST NETSMART ([facility]) Z79.82 assisted (current) use of aspirin director long term care (cu rrent) use of aspirin Problem 06/27/2020 12:00:00 AM EST NETSMART ([facility]) Z79.01 assisted (current) use of anticoagulant s director long term care (current) use of anticoagulants Problem 06/27/2020 12:00:00 AM EST NETSMART ([facility]) Z68.33 Body mass index [BMI] 33.0-33.9, adult B rhys mass index [BMI] 33.0-33.9, adult Problem 06/27/2020 12:00:00 AM EST NETSMART ([facility]) Z91.81 History of falling History of falling Problem 12:00:00 AM EST NETSMART ([facility]) Z85.46 Personal history of malignant neoplasm o f prostate Personal history of malignant neoplasm of prostate Problem 06/27/2020 12:00:00 AM EST NE CHELSIEMART ([facility]) 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 Gerhard baljeet following cerebral infarction Problem 06/27/2020 12:00:00 AM EST NETSMART ([facility]) I69.398 Other sequelae of cerebral infarction Ot her sequelae of cerebral infarction Problem 06/23/2020 12:00:00 AM EST NETSMART ([facility]) I82.511 [id number] 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 Problem 03/14/2020 12:00:00 AM EST eCW1 ([facility]) L98.491 [id number] Superficial ulcer of skin Problem 02/16/2020 12:00:00 AM EDT eCW1 ([facility]) Surgeries/Procedures Procedure Description Date Indications Data Source(s) OFFICE OUTPATIENT VISIT 15 MINUTES 02/01/2021 12:00:00 AM EDT MEDENT ([facility], ) OFFICE OUTPATIENT NEW 30 MINUTES 10/20/2020 12:00:00 A M EDT MEDENT ([facility], ) Results ID Date Data Source [id number] 03/10/2021 12:08:00 PM EST [facility] Name Value Range Interpretation Code Description Data Nichole rce(s) Supporting Document(s) SARS coronavirus 2 RdRp gene [Presence] in Respiratory specimen by CHRISTI with probe detection Detected [facility] This lab was ordered by [facility] and reported by [facility]. ID Date Data Source [id number] 07/27/2020 06:49:00 PM EDT [facility] Name Value Range Interpretation Code Description Data Nichole rce(s) Supporting Document(s) SARS-CoV-2 IgG Serum <0.20 AU/mL <1.00 [facility] A result less than 1.00 AU/mL is conside red to be negative. PositiveIgG antibody results are often present later in the infectious process(from 7 days onward). Results will be reported to government agenciesas required.The [employer] DZ-Lite SARS-CoV-2 IgG CLIA assay has received EmergencyUse Authorization (EUA). We will continue to follow federal and staterequirements for COVID-19 reporting. This test was developed and itsperformance characteristics determined by [facility]. Ithas not been reviewed, cleared or approved [...] SARS-CoV-2 IgG:Chemiluminescent Immunoassay. ID Date Data Source [id number] 06/22/2020 06:37:00 AM EST [facility] Name Value Range Interpretation Code Description Data Nichole rce(s) Supporting Document(s) SARS coronavirus 2 RNA [Presence] in Res piratory specimen by CHRISTI with probe detection NEGATIVE [facility] This lab was ordered by [facility] a nd reported by [facility]. ID Date Data Source VITAMIN B12 LEVEL 06/17/2020 12:00:00 AM EST eCW1 ([facility]) Name Value Range Interpretation Code Description Data Nichole rce(s) Supporting Document(s) [id number] VITAMIN B12 LEVEL eCW1 ([facility]) ID Date Data Source PSA MONITOR (HX PROSTATE CA/ABNORMAL PSA) 06/17/2020 12:00:0 0 AM EST eCW1 ([facility]) Name Value Range Interpretation Code Description Data Nichole rce(s) Supporting Document(s) 18.70 < 4.00 PROSTATIC SPECIFIC AG MON ITOR eCW1 ([facility]) ID Date Data Source Comprehensive Metabolic Profile (CMP) 06/17/2020 12:00:00 AM EST eCW1 ([facility]) Name Value Range Interpretation Code Description Data Nichole rce(s) Supporting Document(s) 22 7-18 BLOOD UREA NITROGEN eCW1 ([facility]) 119 70-100 GLUCOSE, FASTING eCW1 ([facility]) 142 136-145 SODIUM LEVEL eCW1 ([facility]) > 60.0 >35 GLOMERULAR FILTRATION RATE eCW 1 ([facility]) 4.2 3.5-5.1 POTASSIUM SERUM eCW1 ([facility]) 0.97 0.70-1.30 CREATININE FOR GFR eCW1 ([facility]) 102 98-107 CHLORIDE LEVEL eCW1 ([facility]) 10 7-37 AST/SGOT eCW1 ([facility]) 9.5 8.8-10.2 CALCIUM LEVEL eCW1 ([facility]) 35 21-32 CARBON DIOXIDE LEVEL eCW1 ([facility]) 21 12-78 ALT/SGPT eCW1 ([facility]) 0.4 0.2-1.0 BILIRUBIN,TOTAL eCW1 ([facility]) 6.6 6.4-8.2 TOTAL PROTEIN eCW1 ([facility]) 67 45-117 ALKALINE PHOSPHATASE eCW1 ([facility]) 3.3 3.2-5.2 ALBUMIN eCW1 ([facility]) 1.0 ALBUMIN/GLOBULIN RATIO eCW1 ([facility]) ID Date Data Source URIC ACID 06/17/2020 12:00:00 AM EST eCW1 ([facility]) Name Value Range Interpretation Code Description Data Nichole rce(s) Supporting Document(s) 4.3 3.5-7.2 URIC ACID eCW1 ([facility]) ID Date Data Source MAGNESIUM LEVEL 06/17/2020 12:00:00 AM EST eCW1 ([facility]) Name Value Range Interpretation Code Description Data Nichole rce(s) Supporting Document(s) 1.9 1.8-2.4 MAGNESIUM LEVEL eCW1 ([facility]) ID Date Data Source [id number] 06/17/2020 12:00:00 AM EST eCW1 ([facility]) Name Value Range Interpretation Code Description Data Nichole rce(s) Supporting Document(s) Hemoglobin A1c/Hemoglobin.total in Blood 6.9 HEMOGLOBIN A1c eCW1 ([facility]) ID Date Data Source NT-PRO BNP 06/17/2020 12:00:00 AM EST eCW1 ([facility]) Name Value Range Interpretation Code Description Data Nichole rce(s) Supporting Document(s) 361 <450 NT-PRO BNP eCW1 ([facility]) Procedure Social History Code Duration Value Status Description Data Source(s ) Smoking 12/26/2020 12:00:00 AM EDT Former Smoker completed Former Smoker eCW1 ([facility]) Smoking 12/26/2020 12:00:00 AM EDT Former Smoker completed Former Smoker eCW1 ([facility]) Smoking 12/26/2020 12:00:00 AM EDT Former Smoker completed Former Smoker eCW1 ([facility]) Smoking 12/26/2020 12:00:00 AM EDT Former Smoker completed Former Smoker eCW1 ([facility]) Smoking 12/26/2020 12:00:00 AM EDT Former Smoker completed Former Smoker eCW1 ([facility]) Smoking 12/26/2020 12:00:00 AM EDT Former Smoker completed Former Smoker eCW1 ([facility]) Smoking 12/26/2020 12:00:00 AM EDT Former Smoker completed Former Smoker eCW1 ([facility]) Smoking 12/26/2020 12:00:00 AM EDT Former Smoker completed Former Smoker eCW1 ([facility]) Smoking 12/26/2020 12:00:00 AM EDT Former Smoker completed Former Smoker eCW1 ([facility]) Smoking 12/26/2020 12:00:00 AM EDT Former Smoker completed Former Smoker eCW1 ([facility]) Smoking 12/26/2020 12:00:00 AM EDT Former Smoker completed Former Smoker eCW1 ([facility]) Smoking 12/26/2020 12:00:00 AM EDT Former Smoker completed Former Smoker eCW1 ([facility]) Smoking 12/26/2020 12:00:00 AM EDT Former Smoker completed Former Smoker eCW1 ([facility]) Smoking 12/26/2020 12:00:00 AM EDT Former Smoker completed Former Smoker eCW1 ([facility]) Smoking 12/26/2020 12:00:00 AM EDT Former Smoker completed Former Smoker eCW1 ([facility]) Smoking 09/27/2020 12:00:00 AM EDT Former Smoker completed Former Smoker eCW1 ([facility]) Smoking 09/27/2020 12:00:00 AM EDT Former Smoker completed Former Smoker eCW1 ([facility]) Smoking 09/27/2020 12:00:00 AM EDT Former Smoker completed Former Smoker eCW1 ([facility]) Smoking 09/27/2020 12:00:00 AM EDT Former Smoker completed Former Smoker eCW1 ([facility]) Smoking 09/27/2020 12:00:00 AM EDT Former Smoker completed Former Smoker eCW1 ([facility]) Smoking 09/27/2020 12:00:00 AM EDT Former Smoker completed Former Smoker eCW1 ([facility]) Smoking 09/27/2020 12:00:00 AM EDT Former Smoker completed Former Smoker eCW1 ([facility]) Smoking 09/27/2020 12:00:00 AM EDT Former Smoker completed Former Smoker eCW1 ([facility]) Smoking 09/09/2020 12:00:00 AM EDT Former Smoker completed Former Smoker eCW1 ([facility]) Smoking 09/09/2020 12:00:00 AM EDT Former Smoker completed Former Smoker eCW1 ([facility]) Smoking 09/09/2020 12:00:00 AM EDT Former Smoker completed Former Smoker eCW1 ([facility]) Smoking 08/23/2020 12:00:00 AM EDT Former Smoker completed Former Smoker eCW1 ([facility]) Smoking 08/23/2020 12:00:00 AM EDT Former Smoker completed Former Smoker eCW1 ([facility]) Smoking 08/23/2020 12:00:00 AM EDT Former Smoker completed Former Smoker eCW1 ([facility]) Smoking 08/23/2020 12:00:00 AM EDT Former Smoker completed Former Smoker eCW1 ([facility]) Smoking 08/23/2020 12:00:00 AM EDT Former Smoker completed Former Smoker eCW1 ([facility]) Smoking 08/23/2020 12:00:00 AM EDT Former Smoker completed Former Smoker eCW1 ([facility]) Smoking 07/11/2020 12:00:00 AM EDT Former Smoker completed Former Smoker eCW1 ([facility]) Smoking 07/11/2020 12:00:00 AM EDT Former Smoker completed Former Smoker eCW1 ([facility]) Smoking 06/30/2020 12:00:00 AM EST Former Smoker completed Former Smoker eCW1 ([facility]) Smoking 06/30/2020 12:00:00 AM EST Former Smoker completed Former Smoker eCW1 ([facility]) Smoking 06/30/2020 12:00:00 AM EST Former Smoker completed Former Smoker eCW1 ([facility]) Smoking 06/30/2020 12:00:00 AM EST Former Smoker completed Former Smoker eCW1 ([facility]) Smoking 06/30/2020 12:00:00 AM EST Former Smoker completed Former Smoker eCW1 ([facility]) Smoking 06/14/2020 12:00:00 AM EST Former Smoker completed Former Smoker eCW1 ([facility]) Smoking 06/14/2020 12:00:00 AM EST Former Smoker completed Former Smoker eCW1 ([facility]) Smoking 06/14/2020 12:00:00 AM EST Former Smoker completed Former Smoker eCW1 ([facility]) Smoking 06/14/2020 12:00:00 AM EST Former Smoker completed Former Smoker eCW1 ([facility]) Smoking 06/14/2020 12:00:00 AM EST Former Smoker completed Former Smoker eCW1 ([facility]) Smoking 06/14/2020 12:00:00 AM EST Former Smoker completed Former Smoker eCW1 ([facility]) Smoking 06/14/2020 12:00:00 AM EST Former Smoker completed Former Smoker eCW1 ([facility]) Smoking 06/02/2020 12:00:00 AM EST Former Smoker completed Former Smoker eCW1 ([facility]) Smoking 03/14/2020 12:00:00 AM EST Former Smoker completed Former Smoker eCW1 ([facility]) Smoking 03/14/2020 12:00:00 AM EST Former Smoker completed Former Smoker eCW1 ([facility]) Smoking 03/14/2020 12:00:00 AM EST Former Smoker completed Former Smoker eCW1 ([facility]) Smoking 03/14/2020 12:00:00 AM EST Former Smoker completed Former Smoker eCW1 ([facility]) Smoking 03/14/2020 12:00:00 AM EST Former Smoker completed Former Smoker eCW1 ([facility]) Smoking 03/14/2020 12:00:00 AM EST Former Smoker completed Former Smoker eCW1 ([facility]) Smoking 03/14/2020 12:00:00 AM EST Former Smoker completed Former Smoker eCW1 ([facility]) Smoking 03/14/2020 12:00:00 AM EST Former Smoker completed Former Smoker eCW1 ([facility]) Smoking 03/14/2020 12:00:00 AM EST Former Smoker completed Former Smoker eCW1 ([facility]) Smoking 03/14/2020 12:00:00 AM EST Former Smoker completed Former Smoker eCW1 ([facility]) Smoking 03/14/2020 12:00:00 AM EST Former Smoker completed Former Smoker eCW1 ([facility]) Smoking 03/03/2020 12:00:00 AM EST Former Smoker completed Former Smoker eCW1 ([facility]) Smoking 03/03/2020 12:00:00 AM EST Former Smoker completed Former Smoker eCW1 ([facility]) Smoking 03/03/2020 12:00:00 AM EST Former Smoker completed Former Smoker eCW1 ([facility]) Smoking 03/03/2020 12:00:00 AM EST Former Smoker completed Former Smoker eCW1 ([facility]) Smoking 03/03/2020 12:00:00 AM EST Former Smoker completed Former Smoker eCW1 ([facility]) Smoking 03/02/2020 12:00:00 AM EST Former Smoker completed Former Smoker eCW1 ([facility]) Smoking 02/16/2020 12:00:00 AM EDT Former Smoker completed Former Smoker eCW1 ([facility]) Smoking 02/16/2020 12:00:00 AM EDT Former Smoker completed Former Smoker [email or web address] ([facility]) Smoking 02/16/2020 12:00:00 AM EDT Former Smoker completed Former Smoker [email or web address] ([facility]) Vital Signs ID Date Data Source UNK Name Value Range Interpretation Code Description Data Source(s) Body weight 115.668 kg 115.668 kg [facility] ([facility]) Body weight 255.00 [lb_av] 255.00 [lb_av] [facility] Oxygen saturation in Arterial blood by Pulse oximetry 94 % 94 % [facility] ([facility]) Body surface area Derived from formula 2.29 m2 2.29 m2 [facility] ([facility]) Body mass index (BMI) [Ratio] 37.7 kg/m2 37.7 k g/m2 [facility] ([facility]) [place] body weight 160 [lb_av] 160 [lb_av] MEDEN T ([facility]) Body height 69 [in_i] 69 [in_i] [facility] ([facility]) 5'9" Systolic blood pressure 130 mm[Hg] 130 mm[Hg] [facility] ([facility]) Diastolic blood pressure 70 mm[Hg] 70 mm[Hg] [facility] ([facility]) Heart rate 80 /min 80 /min [facility] ([facility]) Body temperature 97.8 [degF] 97.8 [degF] W1 ( [facility]) Body weight 253.6 [lb_av] 253.6 [lb_av] W1 ([facility]) Body weight 115.03 kg 115.03 kg W1 ([facility]) Body height 73 [in_i] 73 [in_i] W1 ([facility]) Body mass index (BMI) [Ratio] 33.45 kg/m2 33.45 kg/m2 [facility] ([facility]) Heart rate 106 /min 106 /min eCW1 ([facility]) Respiratory rate 18 /min 18 /min eCW1 ([facility]) Systolic blood pressure 128 mm[Hg] 128 mm[Hg] e CW1 ([facility]) Diastolic blood pressure 74 mm[Hg] 74 mm[Hg] eCW1 ([facility]) Body weight 253.6 [lb_av] 253.6 [lb_av] eCW1 ([facility]) Diastolic blood pressure 74 mm[Hg] 74 mm[Hg] eCW1 ([facility]) Body weight 115.03 kg 115.03 kg eCW1 ([facility]) Body height 73 [in_i] 73 [in_i] eCW1 ([facility]) Body mass index (BMI) [Ratio] 33.45 kg/m2 33.45 kg/m2 eCW1 ([facility]) Heart rate 106 /min 106 /min eCW1 ([facility]) Respiratory rate 18 /min 18 /min eCW1 ([facility]) Body temperature 97.8 [degF] 97.8 [degF] eCW1 ( [facility]) Systolic blood pressure 128 mm[Hg] 128 mm[Hg] e CW1 ([facility]) Body mass index (BMI) [Ratio] 37.2 kg/m2 37.2 k g/m2 [facility] ([facility], ) [place] body weight 160 [lb_av] 160 [lb_av] MEDEN T ([facility], ) Heart rate 114 /min 114 /min MEDENT ([facility], ) Diastolic blood pressure 70 mm[Hg] 70 mm[Hg] [facility]ENT ([facility], ) Systolic blood pressure 130 mm[Hg] 130 mm[Hg] M EDJARROD ([facility], ) Oxygen saturation in Arterial blood by Pulse oximetry 94 % 94 % MEDJARROD ([facility], ) Body height 69 [in_i] 69 [in_i] MEDJARROD ([facility], ) 5'9" Body weight 252.00 [lb_av] 252.00 [lb_av] MEDEN T ([facility]) Oxygen saturation in Arterial blood by Pulse oximetry 94 % 94 % [facility] ([facility]) Body height 69 [in_i] 69 [in_i] [facility] ([facility]) 5'9" Body weight 252.00 [lb_av] 252.00 [lb_av] MEDEN T ([facility]) Body mass index (BMI) [Ratio] 37.2 kg/m2 37.2 k g/m2 [facility] ([facility]) [place] body weight 160 [lb_av] 160 [lb_av] MED[facility] T ([facility]) Body weight 114.307 kg 114.307 kg [facility] ([facility]) Body surface area Derived from formula 2.28 m2 2.28 m2 [facility] ([facility]) Body weight 114.307 kg 114.307 kg [facility] ([facility]) Body surface area Derived from formula 2.28 m2 2.28 m2 [facility] ([facility]) Body weight 254 [lb_av] 254 [lb_av] W1 ([facility]) Body height 73 [in_i] 73 [in_i] eCW1 ([facility]) Body mass index (BMI) [Ratio] 33.51 kg/m2 33.51 kg/m2 eCW1 ([facility]) Heart rate 87 /min 87 /min eCW1 ([facility]) Respiratory rate 18 /min 18 /min eCW1 ([facility]) Systolic blood pressure 134 mm[Hg] 134 mm[Hg] e CW1 ([facility]) Diastolic blood pressure 84 mm[Hg] 84 mm[Hg] eCW1 ([facility]) Systolic blood pressure 114 mm[Hg] 114 mm[Hg] e CW1 ([facility]) Heart rate 107 /min 107 /min eCW1 ([facility]) Diastolic blood pressure 72 mm[Hg] 72 mm[Hg] eCW1 ([facility]) Respiratory rate 18 /min 18 /min eCW1 ([facility]) Body temperature 97.4 [degF] 97.4 [degF] eCW1 ( [facility]) Body weight 253 [lb_av] 253 [lb_av] eCW1 ([facility]) Body height 73 [in_i] 73 [in_i] eCW1 ([facility]) Body mass index (BMI) [Ratio] 33.38 kg/m2 33.38 kg/m2 eCW1 ([facility]) Body weight 255.8 [lb_av] 255.8 [lb_av] eCW1 ([facility]) Body height 73 [in_i] 73 [in_i] eCW1 ([facility]) Body mass index (BMI) [Ratio] 33.75 kg/m2 33.75 kg/m2 eCW1 ([facility]) Heart rate 107 /min 107 /min eCW1 ([facility]) Respiratory rate 18 /min 18 /min eCW1 ([facility]) Body temperature 98 [degF] 98 [degF] eCW1 ([facility]) Systolic blood pressure 112 mm[Hg] 112 mm[Hg] e CW1 ([facility]) Diastolic blood pressure 70 mm[Hg] 70 mm[Hg] eCW1 ([facility]) Body weight 249.0 [lb_av] 249.0 [lb_av] eCW1 ([facility]) Body height 73 [in_i] 73 [in_i] eCW1 ([facility]) Body mass index (BMI) [Ratio] 32.85 kg/m2 32.85 kg/m2 eCW1 ([facility]) Heart rate 101 /min 101 /min eCW1 ([facility]) Respiratory rate 18 /min 18 /min eCW1 ([facility]) Body temperature 97.6 [degF] 97.6 [degF] eCW1 ( [facility]) Systolic blood pressure 122 mm[Hg] 122 mm[Hg] e CW1 ([facility]) Diastolic blood pressure 78 mm[Hg] 78 mm[Hg] eCW1 ([facility]) Body weight 243.12 [lb_av] 243.12 [lb_av] eCW1 ([facility]) Body height 73 [in_i] 73 [in_i] eCW1 ([facility]) Body mass index (BMI) [Ratio] 32.07 kg/m2 32.07 kg/m2 eCW1 ([facility]) Heart rate 102 /min 102 /min eCW1 ([facility]) Respiratory rate 18 /min 18 /min eCW1 ([facility]) Body temperature 97.7 [degF] 97.7 [degF] eCW1 ( [facility]) Systolic blood pressure 128 mm[Hg] 128 mm[Hg] e CW1 ([facility]) Diastolic blood pressure 80 mm[Hg] 80 mm[Hg] eCW1 ([facility]) Heart rate 118 /min 118 /min eCW1 ([facility]) Respiratory rate 18 /min 18 /min eCW1 ([facility]) Body height 73 [in_i] 73 [in_i] eCW1 ([facility]) Body weight 255 [lb_av] 255 [lb_av] eCW1 ([facility]) Systolic blood pressure 138 mm[Hg] 138 mm[Hg] e CW1 ([facility]) Diastolic blood pressure 80 mm[Hg] 80 mm[Hg] eCW1 ([facility]) Body mass index (BMI) [Ratio] 33.64 kg/m2 33.64 kg/m2 eCW1 ([facility]) Body temperature 97.2 [degF] 97.2 [degF] eCW1 ( [facility]) Body weight 254 [lb_av] 254 [lb_av] eCW1 ([facility]) Body height 73 [in_i] 73 [in_i] eCW1 ([facility]) Body mass index (BMI) [Ratio] 33.51 kg/m2 33.51 kg/m2 eCW1 ([facility]) Heart rate 119 /min 119 /min eCW1 ([facility]) Respiratory rate 20 /min 20 /min eCW1 ([facility]) Body temperature 97.1 [degF] 97.1 [degF] eCW1 ( [facility]) Systolic blood pressure 120 mm[Hg] 120 mm[Hg] e CW1 ([facility]) Diastolic blood pressure 80 mm[Hg] 80 mm[Hg] eCW1 ([facility]) Body temperature 96.8 [degF] 96.8 [degF] eCW1 ( [facility]) Body weight 259.4 [lb_av] 259.4 [lb_av] eCW1 ([facility]) Body height 73 [in_i] 73 [in_i] eCW1 ([facility]) Body mass index (BMI) [Ratio] 34.22 kg/m2 34.22 kg/m2 eCW1 ([facility]) Heart rate 95 /min 95 /min eCW1 ([facility]) Systolic blood pressure 138 mm[Hg] 138 mm[Hg] e CW1 ([facility]) Diastolic blood pressure 82 mm[Hg] 82 mm[Hg] eCW1 ([facility]) Respiratory rate 18 /min 18 /min eCW1 ([facility]) Body weight 259.4 [lb_av] 259.4 [lb_av] eCW1 ([facility]) Body height 73 [in_i] 73 [in_i] eCW1 ([facility]) Body mass index (BMI) [Ratio] 34.22 kg/m2 34.22 kg/m2 eCW1 ([facility]) Heart rate 95 /min 95 /min eCW1 ([facility]) Respiratory rate 18 /min 18 /min eCW1 ([facility]) Body temperature 96.8 [degF] 96.8 [degF] eCW1 ( [facility]) Systolic blood pressure 138 mm[Hg] 138 mm[Hg] e CW1 ([facility]) Diastolic blood pressure 82 mm[Hg] 82 mm[Hg] eCW1 ([facility]) Body weight 264 [lb_av] 264 [lb_av] eCW1 ([facility]) Body temperature 97.7 [degF] 97.7 [degF] eCW1 ( [facility]) Systolic blood pressure 132 mm[Hg] 132 mm[Hg] e CW1 ([facility]) Diastolic blood pressure 88 mm[Hg] 88 mm[Hg] eCW1 ([facility]) Body height 73 [in_i] 73 [in_i] eCW1 ([facility]) Body mass index (BMI) [Ratio] 34.83 kg/m2 34.83 kg/m2 eCW1 ([facility]) Heart rate 96 /min 96 /min eCW1 ([facility]) Respiratory rate 22 /min 22 /min eCW1 ([facility]) Body weight 260 [lb_av] 260 [lb_av] eCW1 ([facility]) Body height 73 [in_i] 73 [in_i] eCW1 ([facility]) Body mass index (BMI) [Ratio] 34.30 kg/m2 34.30 kg/m2 W1 ([facility]) Heart rate 91 /min 91 /min eCW1 ([facility]) Respiratory rate 18 /min 18 /min eCW1 ([facility]) Body temperature 97.4 [degF] 97.4 [degF] eCW1 ( [facility]) Systolic blood pressure 138 mm[Hg] 138 mm[Hg] e CW1 ([facility]) Diastolic blood pressure 80 mm[Hg] 80 mm[Hg] eCW1 ([facility]) Body mass index (BMI) [Ratio] 32.98 kg/m2 32.98 kg/m2 eCW1 ([facility]) Body weight 250 [lb_av] 250 [lb_av] eCW1 ([facility]) Body height 73 [in_i] 73 [in_i] eCW1 ([facility]) Diastolic blood pressure 80 mm[Hg] 80 mm[Hg] eCW1 ([facility]) Heart rate 91 /min 91 /min eCW1 ([facility]) Respiratory rate 18 /min 18 /min eCW1 ([facility]) Body temperature 97.4 [degF] 97.4 [degF] eCW1 ( [facility]) Systolic blood pressure 138 mm[Hg] 138 mm[Hg] e CW1 ([facility]) Patient Treatment Plan of Care Planned Activity Planned Date Details Description Data Source (s) CPAP mask 03/14/2021 12:00:00 AM EST e CW1 ([facility]) FreeStyle Ghulam 14 Day Sensor - 02/13/2021 12:00:00 AM EDT eCW1 ([facility]) FreeStyle Ghulam 14 Day Sensor - 02/13/2021 12:00:00 AM EDT eCW1 ([facility]) FreeStyle Ghulam 14 Day Sensor - 02/13/2021 12:00:00 AM EDT eCW1 ([facility]) FreeStyle Ghulam 14 Day Sensor - 02/13/2021 12:00:00 AM EDT eCW1 ([facility]) FreeStyle Ghulam 14 Day Sensor - 02/13/2021 12:00:00 AM EDT eCW1 ([facility]) ammonium lactate 120 MG/ML Topical Cream 09/27/2020 12:00:00 AM EDT eCW1 ([facility]) ammonium lactate 120 MG/ML Topical Cream 09/27/2020 12:00:00 AM EDT eCW1 ([facility]) ammonium lactate 120 MG/ML Topical Cream 09/27/2020 12:00:00 AM EDT eCW1 ([facility]) ammonium lactate 120 MG/ML Topical Cream 09/27/2020 12:00:00 AM EDT eCW1 ([facility]) ammonium lactate 120 MG/ML Topical Cream 09/27/2020 12:00:00 AM EDT eCW1 ([facility]) ammonium lactate 120 MG/ML Topical Cream 09/27/2020 12:00:00 AM EDT eCW1 ([facility]) ammonium lactate 120 MG/ML Topical Cream 09/27/2020 12:00:00 AM EDT eCW1 ([facility]) ammonium lactate 120 MG/ML Topical Cream 09/27/2020 12:00:00 AM EDT eCW1 ([facility]) CPAP mask 09/12/2020 12:00:00 AM EDT e CW1 ([facility]) CPAP mask 09/12/2020 12:00:00 AM EDT e CW1 ([facility]) CPAP mask 09/12/2020 12:00:00 AM EDT e CW1 ([facility]) CPAP mask 09/12/2020 12:00:00 AM EDT e CW1 ([facility]) CPAP mask 09/12/2020 12:00:00 AM EDT e CW1 ([facility]) CPAP mask 09/12/2020 12:00:00 AM EDT e CW1 ([facility]) CPAP mask 09/12/2020 12:00:00 AM EDT e CW1 ([facility]) CPAP mask 09/12/2020 12:00:00 AM EDT e CW1 ([facility]) CPAP mask 09/12/2020 12:00:00 AM EDT e CW1 ([facility]) CPAP mask 09/12/2020 12:00:00 AM EDT e CW1 ([facility]) CPAP mask 09/12/2020 12:00:00 AM EDT e CW1 ([facility]) CPAP mask 09/12/2020 12:00:00 AM EDT e CW1 ([facility]) CPAP mask 09/12/2020 12:00:00 AM EDT e CW1 ([facility]) CPAP Machine 09/12/2020 12:00:00 AM EDT e CW1 ([facility]) CPAP Machine 09/12/2020 12:00:00 AM EDT e CW1 ([facility]) CPAP mask 09/12/2020 12:00:00 AM EDT e CW1 ([facility]) CPAP Machine 09/12/2020 12:00:00 AM EDT e CW1 ([facility]) CPAP mask 09/12/2020 12:00:00 AM EDT e CW1 ([facility]) Polyethylene Glycol 400 4 MG/ML / Propyl meliton glycol 3 MG/ML Ophthalmic Solution [Systane] 06/30/2020 12:00:00 AM EST eCW1 ([facility]) Optifoam Gentle Foam Dressings 06/30/2020 12:00:00 AM EST eCW1 ([facility]) Polyethylene Glycol 400 4 MG/ML / Propyl meliton glycol 3 MG/ML Ophthalmic Solution [Systane] 06/30/2020 12:00:00 AM EST eCW1 ([facility]) Optifoam Gentle Foam Dressings 06/30/2020 12:00:00 AM EST eCW1 ([facility]) Polyethylene Glycol 400 4 MG/ML / Propyl meliton glycol 3 MG/ML Ophthalmic Solution [Systane] 06/30/2020 12:00:00 AM EST eCW1 ([facility]) Optifoam Gentle Foam Dressings 06/30/2020 12:00:00 AM EST eCW1 ([facility]) Polyethylene Glycol 400 4 MG/ML / Propyl meliton glycol 3 MG/ML Ophthalmic Solution [Systane] 06/30/2020 12:00:00 AM EST eCW1 ([facility]) Optifoam Gentle Foam Dressings 06/30/2020 12:00:00 AM EST eCW1 ([facility]) Polyethylene Glycol 400 4 MG/ML / Propyl meliton glycol 3 MG/ML Ophthalmic Solution [Systane] 06/30/2020 12:00:00 AM EST eCW1 ([facility]) Optifoam Gentle Foam Dressings 06/30/2020 12:00:00 AM EST eCW1 ([facility]) Polyethylene Glycol 400 4 MG/ML / Propyl meliton glycol 3 MG/ML Ophthalmic Solution [Systane] 06/30/2020 12:00:00 AM EST eCW1 ([facility]) Polyethylene Glycol 400 4 MG/ML / Propyl meliton glycol 3 MG/ML Ophthalmic Solution [Systane] 06/30/2020 12:00:00 AM EST eCW1 ([facility]) COMPRESSION STOCKINGS 15-20 mmHg 06/27/2020 12:00:00 AM EST eCW1 ([facility]) COMPRESSION STOCKINGS 15-20 mmHg 06/27/2020 12:00:00 AM EST eCW1 ([facility]) COMPRESSION STOCKINGS 15-20 mmHg 06/27/2020 12:00:00 AM EST eCW1 ([facility]) Diclofenac Sodium 1 % 06/27/2020 12:00:00 AM EST [facility]SM[facility] ([facility]) Ferrous Sulfate 325 (65 Fe) MG 06/27/2020 12:00:00 [facility] MetFORMIN HCl 500 MG 06/27/2020 12:00:00 AM EST [facility]SMART ([facility]) Glimepiride 4 MG 06/27/2020 12:00:00 AM EST [facility]SMART ([facility]) Vitamin D3 1000 UNIT 06/27/2020 12:00:00 AM EST [facility] Tresiba FlexTouch 200 UNIT/ML 06/27/2020 12:00:00 AM EST [facility]SMART ([facility]) Fluticasone Propionate 50 MCG/ACT 06/27/2020 12:00:00 AM EST [facility]SMART ([facility]) Torsemide 20 MG 06/27/2020 12:00:00 AM EST [facility]SMART ([facility]) Eliquis 5 MG 06/27/2020 12:00:00 AM EST N ETSMART ([facility]) Potassium Chloride ER 10 MEQ 06/27/2020 12:00:00 AM EST [facility]SMART ([facility]) Vitamin B12 1000 MCG 06/27/2020 12:00:00 AM EST [facility]SMART ([facility]) Aspirin EC Adult Low Strength 81 MG 06/27/2020 12:00:00 AM EST [facility]SMART ([facility]) Omeprazole 40 MG 06/27/2020 12:00:00 AM EST [facility]SMART ([facility]) Rosuvastatin Calcium 20 MG 06/27/2020 12:00:00 AM EST [facility]SM[facility] ([facility]) Allopurinol 300 MG 06/27/2020 12:00:00 AM EST [facility]SMART ([facility]) Pen Seymour 31G X 5 MM 05/13/2020 12:00:00 AM EST eCW1 ([facility]) Pen Seymour 31G X 5 MM 05/13/2020 12:00:00 AM EST eCW1 ([facility]) Pen Seymour 31G X 5 MM 05/13/2020 12:00:00 AM EST eCW1 ([facility]) Pen Seymour 31G X 5 MM 05/13/2020 12:00:00 AM EST eCW1 ([facility]) Pen Seymour 31G X 5 MM 05/13/2020 12:00:00 AM EST eCW1 ([facility]) Pen Seymour 31G X 6 MM 05/13/2020 12:00:00 AM EST eCW1 ([facility]) Pen Seymour 31G X 6 MM 05/13/2020 12:00:00 AM EST eCW1 ([facility]) Pen Seymour 31G X 6 MM 05/13/2020 12:00:00 AM EST eCW1 ([facility]) Pen Seymour 31G X 5 MM 05/13/2020 12:00:00 AM EST eCW1 ([facility]) Pen Seymour 31G X 6 MM 05/13/2020 12:00:00 AM EST eCW1 ([facility]) Pen Seymour 31G X 5 MM 05/13/2020 12:00:00 AM EST eCW1 ([facility]) Pen Seymour 31G X 6 MM 05/13/2020 12:00:00 AM EST eCW1 ([facility]) Pen Seymour 31G X 6 MM 05/13/2020 12:00:00 AM EST eCW1 ([facility]) Pen Seymour 31G X 6 MM 05/13/2020 12:00:00 AM EST eCW1 ([facility]) Pen Seymour 05/13/2020 12:00:00 AM EST e CW1 ([facility]) Pen Seymour 31G X 6 MM 05/13/2020 12:00:00 AM EST eCW1 ([facility]) Tresiba FlexTouch 200 UNIT/ML 05/13/2020 12:00:00 AM EST eCW1 ([facility]) Tresiba FlexTouch 200 UNIT/ML 05/13/2020 12:00:00 AM EST eCW1 ([facility]) Tresiba FlexTouch 200 UNIT/ML 05/13/2020 12:00:00 AM EST eCW1 ([facility]) Pen Seymour 05/13/2020 12:00:00 AM EST e CW1 ([facility]) Tresiba FlexTouch 200 UNIT/ML 05/13/2020 12:00:00 AM EST eCW1 ([facility]) Pen Seymour 05/13/2020 12:00:00 AM EST e CW1 ([facility]) Tresiba FlexTouch 200 UNIT/ML 05/13/2020 12:00:00 AM EST eCW1 ([facility]) Pen Seymour 05/13/2020 12:00:00 AM EST e CW1 ([facility]) Tresiba FlexTouch 200 UNIT/ML 05/13/2020 12:00:00 AM EST eCW1 ([facility]) Pen Seymour 05/13/2020 12:00:00 AM EST e CW1 ([facility]) Tresiba FlexTouch 200 UNIT/ML 05/13/2020 12:00:00 AM EST eCW1 ([facility]) Tresiba FlexTouch 200 UNIT/ML 05/13/2020 12:00:00 AM EST eCW1 ([facility]) Pen Seymour 05/13/2020 12:00:00 AM EST e CW1 ([facility]) torsemide 20 MG Oral Tablet 02/17/2020 12:00:00 AM EDT eCW1 ([facility]) torsemide 20 MG Oral Tablet 02/17/2020 12:00:00 AM EDT eCW1 ([facility]) torsemide 20 MG Oral Tablet 02/17/2020 12:00:00 AM EDT eCW1 ([facility]) torsemide 10 MG Oral Tablet 02/17/2020 12:00:00 AM EDT eCW1 ([facility]) torsemide 10 MG Oral Tablet 02/17/2020 12:00:00 AM EDT eCW1 ([facility]) torsemide 10 MG Oral Tablet 02/17/2020 12:00:00 AM EDT eCW1 ([facility]) MetFORMIN HCl ER 500 MG 02/03/2020 12:00:00 AM EDT eCW1 ([facility]) MetFORMIN HCl ER 500 MG 02/03/2020 12:00:00 AM EDT eCW1 ([facility]) MetFORMIN HCl ER 500 MG 02/03/2020 12:00:00 AM EDT eCW1 ([facility]) MetFORMIN HCl ER 500 MG 02/03/2020 12:00:00 AM EDT eCW1 ([facility])
[2021-03-19] MEDS ORDERED: HumuLIN R (REGULAR) INSULIN (NovoLIN R) **100U/ML** PER UNIT IV ONE (17:40)
[2021-03-19] MEDS ORDERED: DEXTROSE 50% 50 ML SYRINGE IV PRN (18:35)
[2021-03-19] MEDS ORDERED: GLUCAGON INJ 1MG VIAL SC PRN (18:35)
[2021-03-19] MEDS ORDERED: GLUCOSE 4GM CHEW TABLET PO PRN (18:35)
[2021-03-19] MEDS ORDERED: ALBUTEROL 90 MCG/ACT 8GM HFA INHALER INH PRN (18:35)
--- OUTSIDE RECORDS SUMMARY | 2021-03-19 18:54 | CCD ---
Author Author [facility] Organization [facility] Address Unknown Phone Unavailable Care Team Providers Care Stamping Die Try Out Worker Name Role Phone Karyn, Sneha PA Unavailable Unavailable Karyn, Sneha PA Unavailable Unavailable Karyn, Sneha PA Unavailable Unavailable Karyn, Sneha PA Unavailable Unavailable Karyn, Sneha PA Unavailable Unavailable Karyn, Sneha PA Unavailable Unavailable Karyn, Sneha PA Unavailable Unavailable Karyn, Sneha PA Unavailable Unavailable Karyn, Sneha PA Unavailable Unavailable Karyn, Sneha PA Unavailable Unavailable CHRIS, FRANCIS LASHAWN CHARTER BUS DRIVER-C Unavailable Unavailable CHRIS, FRANCIS LASHAWN CHARTER BUS DRIVER-C Unavailable Unavailable CHRIS, FRANCIS LASHAWN CHARTER BUS DRIVER-C Unavailable Unavailable CHRIS, FRANCIS LASHAWN CHARTER BUS DRIVER-C Unavailable Unavailable CHRIS, FRANCIS LASHAWN CHARTER BUS DRIVER-C Unavailable Unavailable CHRIS, FRANCIS LASHAWN CHARTER BUS DRIVER-C Unavailable Unavailable CHRIS, FRANCIS LASHAWN CHARTER BUS DRIVER-C Unavailable Unavailable CHRIS, FRANCIS LASHAWN CHARTER BUS DRIVER-C Unavailable Unavailable CHRIS, FRANCIS LASHAWN CHARTER BUS DRIVER-C Unavailable Unavailable CHRIS, FRANCIS LASHAWN CHARTER BUS DRIVER-C Unavailable Unavailable CHRIS, FRANCIS LASHAWN CHARTER BUS DRIVER-C Unavailable Unavailable CHRIS, FRANCIS LASHAWN CHARTER BUS DRIVER-C Unavailable Unavailable CHRIS, FRANCIS LASHAWN CHARTER BUS DRIVER-C Unavailable Unavailable CHRIS, FRANCIS LASHAWN CHARTER BUS DRIVER-C Unavailable Unavailable CHRIS, FRANCIS LASHAWN CHARTER BUS DRIVER-C Unavailable Unavailable CHRIS, FRANCIS LASHAWN CHARTER BUS DRIVER-C Unavailable Unavailable CHRIS, FRANCIS LASHAWN CHARTER BUS DRIVER-C Unavailable Unavailable Re-disclosure Warning The records that [...] is protected by Article 27-F of the [facility] Public Health law. If you continue you may have access to information: Regarding HIV / AIDS; Provided by facilities licensed or operated by the [facility] Office of Mental Health; or Provided by the [facility] Office for People With Developmental Disabilities. If such information is present, then the following [facility] mandated warning applies: This information [...] Source(s ) NKDA NKDA NKDA active NETSMART ([facility]) Encounters Encounter Providers Location Date Indications Data Source(s ) Unknown [address] [facility] [address] 03/17/2021 12:00:00 AM EST [facility] [place] [address] [facility] [place] [address] 03/13/2021 12:00:00 AM EST [facility]) [place] [address] [facility] [address] 02/28/2021 12:00:00 AM EDT [facility] Unknown [address] [facility] [address] 02/15/2021 12:00:00 AM EDT [facility]CW1 [facility]) Unknown [address] [facility] [place] [address] 02/14/2021 12:00:00 AM EDT [facility]1 [facility] [place] [address] [facility] [address] 02/10/2021 12:00:00 AM EDT [facility]CW1 [facility]) Unknown [address] [facility] [address] 02/03/2021 12:00:00 AM EDT eCW1 ([facility]) Outpatient Attender: LASHAWN Gardiner/Patsy/Mir/Florence mercedes 02/01/2021 03:15:00 PM EDT MEDENT ([facility]) [place] [address] [facility] [place] [address] 01/20/2021 12:00:00 AM EDT [facility]CW1 [facility]) [place] [address] [facility] [place] [address] 01/18/2021 12:00:00 AM EDT [facility]CW1 [facility]) Unknown [address] [facility] [address] 01/16/2021 12:00:00 AM EDT [facility]CW1 ([facility]) [place] [address] [facility] [address] 01/13/2021 12:00:00 AM EDT [facility] [place] [address] [facility] [address] 01/05/2021 12:00:00 AM EDT [facility]CW1 [facility]) Unknown [address] [facility] [address] 01/03/2021 12:00:00 AM EDT eCW1 ([facility]) Outpatient [address] [facility] [address] 12/26/2020 12:00:00 AM EDT [facility]CW1 ([facility]) Unknown [address] [facility] [address] 12/19/2020 12:00:00 AM EDT eCW1 [facility] [place] [address] [facility] [address] 12/05/2020 12:00:00 AM EDT [facility]CW1 ([facility]) [place] [address] [facility] [address] 12/01/2020 12:00:00 AM EDT eCW1 ([facility]) Unknown [address] [facility] [address] 11/28/2020 12:00:00 AM EDT eCW1 [facility] Unknown [address] [facility] [address] 11/14/2020 12:00:00 AM EDT eCW1 [facility] Outpatient Attender: LASHAWN Gardiner/Patsy/Charis mercedes 10/20/2020 02:45:00 PM EDT MEDENT ([facility]) Unknown [address] [facility] [address] 09/27/2020 12:00:00 AM EDT eCW1 ([facility]) Outpatient [address] [facility] [address] 09/27/2020 12:00:00 AM EDT eCW1 ([facility]) Unknown [address] [facility] [address] 09/21/2020 12:00:00 AM EDT eCW1 ([facility]) Unknown [address] [facility] [address] 09/14/2020 12:00:00 AM EDT eCW1 ([facility]) Unknown [address] [facility] [address] 09/12/2020 12:00:00 AM EDT eCW1 ([facility]) Office Visit, Est Pt., Level 3 PC [address] [place] [address] 09/09/2020 12:00:00 AM EDT eCW1 ([facility]) Unknown [address] [facility] [address] 09/08/2020 12:00:00 AM EDT eCW1 ([facility]) Unknown [address] [facility] [address] 09/01/2020 12:00:00 AM EDT eCW1 ([facility]) Unknown [address] [facility] [place] [address] 08/29/2020 12:00:00 AM EDT eCW1 ([facility]) Unknown [address] [facility] [address] 08/26/2020 12:00:00 AM EDT eCW1 [facility] Office Visit, Est Pt., Level 3 PC [address] [place] [address] 08/23/2020 12:00:00 AM EDT eCW1 ([facility]) Unknown [address] [facility] [place] [address] 08/23/2020 12:00:00 AM EDT eCW1 ([facility]) Outpatient Attender: Sneha KAT 0 07/25/2020 02:40:07 PM EDT - 07/25/2020 03:29:15 PM EDT DocuTap ([facility]) Unknown [address] [facility] [address] 07/12/2020 12:00:00 AM EDT eCW1 ([facility]) Outpatient [address] [facility] [address] 07/11/2020 12:00:00 AM EDT eCW1 ([facility]) Unknown [address] [facility] [address] 07/06/2020 12:00:00 AM EST eCW1 ([facility] Unknown [address] [facility] [address] 07/04/2020 12:00:00 AM EST eCW1 [facility] Office Visit, Est Pt., Level 3 PC [address] [place] [address] 06/30/2020 12:00:00 AM EST eCW1 ([facility]) Unknown [address] [facility] [address] 06/29/2020 12:00:00 AM EST eCW1 ([facility]) Unknown [address] [facility] [address] 06/28/2020 12:00:00 AM EST eCW1 ([facility]) Unknown [address] [facility] [address] 06/27/2020 12:00:00 AM EST [facility]CW1 [facility]) 06/27/2020 12:00:00 AM EST - 03:06:51 PM EST NETSMART ([facility]) Unknown [address] [facility] [address] 06/24/2020 12:00:00 AM EST eCW1 ([facility]) Unknown [address] [facility] [address] 06/21/2020 12:00:00 AM EST eCW1 ([facility]) Unknown [address] [facility] [address] 06/21/2020 12:00:00 AM EST eCW1 ([facility]) Unknown [address] [facility] [address] 06/21/2020 12:00:00 AM EST eCW1 ([facility]) Office Visit, Est Pt., Level 3 PC [address] [place] [address] 06/14/2020 12:00:00 AM EST eCW1 ([facility]) Unknown [address] [facility] [address] 06/13/2020 12:00:00 AM EST eCW1 ([facility]) Outpatient [address] [facility] [address] 06/02/2020 12:00:00 AM EST eCW1 ([facility]) Unknown [address] [facility] [address] 05/26/2020 12:00:00 AM EST eCW1 ([facility]) Unknown [address] [facility] [address] 05/26/2020 12:00:00 AM EST eCW1 ([facility]) Unknown [address] [facility] [address] 05/17/2020 12:00:00 AM EST eCW1 ([facility]) Unknown [address] [facility] [place] [address] 05/16/2020 12:00:00 AM EST eCW1 ([facility]) Unknown [address] [facility] [address] 05/12/2020 12:00:00 AM EST eCW1 ([facility]) Unknown [address] [facility] [address] 05/12/2020 12:00:00 AM EST eCW1 ([facility]) Unknown [address] [facility] [address] 04/27/2020 12:00:00 AM EST eCW1 ([facility]) Unknown [address] [facility] [address] 04/12/2020 12:00:00 AM EST eCW1 ([facility]) Unknown [address] [facility] [address] 03/17/2020 12:00:00 AM EST eCW1 ([facility]) Outpatient [address] [facility] [place] [address] 03/14/2020 12:00:00 AM EST eCW1 ([facility]) Unknown [address] [facility] [place] [address] 03/11/2020 12:00:00 AM EST eCW1 ([facility]) Unknown [address] [facility] [address] 03/08/2020 12:00:00 AM EST eCW1 ([facility]) Unknown [address] [facility] [place] [address] 03/03/2020 12:00:00 AM EST eCW1 ([facility]) Unknown [address] [facility] [place] [address] 03/03/2020 12:00:00 AM EST eCW1 ([facility]) Office Visit, Est Pt., Level 3 PC [address] [place] [address] 03/02/2020 12:00:00 AM EST eCW1 ([facility]) Unknown [address] [facility] [place] [address] 02/29/2020 12:00:00 AM EST eCW1 ([facility]) [facility] [address] [facility] [place] [address] 02/26/2020 12:00:00 AM EDT eCW1 ([facility]) Unknown [address] [facility] [address] 02/25/2020 12:00:00 AM EDT eCW1 ([facility]) Office Visit, Est Pt., Level 3 PC [address] [place] [address] 02/16/2020 12:00:00 AM EDT eCW1 ([facility]) Unknown [address] [facility] [address] 02/03/2020 12:00:00 AM EDT eCW1 ([facility]) Immunizations Vaccine Date Status Description Data Source(s) COVID-19 VACCINE Moderna 09/23/2020 12:00:00 AM EDT completed [place] Vaccine Series Complete: YESThis Data wa s Submitted to [facility] [employer]. COVID-19 VACCINE Moderna 08/24/2020 12:00:00 AM EDT completed [place] Vaccine Series Complete: NOThis Data was Submitted to [facility] [employer]. Medications Medication Brand Name Start Date Product [...] { tablet} active Cyanocobalamin 1000 MCG eCW1 ([facility]) 90 mcg/actuation 03/16/2021 12:00:00 AM EST HFA [...] HFA 10 8 (90 Base) MCG/ACT eCW1 ([facility]) 10 mg 03/16/2021 12:00:00 AM EST tablet [...] EST active predniSO NE 10 MG eCW1 ([facility]) ferrous sulfate 325 MG Oral Tablet Ferrous Sulfate 325 (65 Fe) MG Ferrous Sulfate 325 (65 Fe) MG 03/16/2021 12:00:00 AM EST 1.0 {tablet} active Ferrous Sulfate 325 (65 Fe) MG eCW1 ([facility]) CPAP mask UNK 03/14/2021 12:00:00 AM EST active CPAP mask eCW1 ([facility]) CPAP mask UNK 03/14/2021 12:00:00 AM EST active CPAP mask eCW1 ([facility]) FreeStyle Ghulam 14 Day Sensor - FreeStyle Ghulam 14 Day Senso r - 02/13/2021 12:00:00 AM EDT active FreeStyl e Ghulam 14 Day Sensor - eCW1 ([facility]) FreeStyle Ghulam 14 Day Sensor - FreeStyle Ghulam 14 Day Senso r - 02/13/2021 12:00:00 AM EDT active FreeStyl e Ghulam 14 Day Sensor - eCW1 ([facility]) FreeStyle Ghulam 14 Day Sensor - FreeStyle Ghulam 14 Day Senso r - 02/13/2021 12:00:00 AM EDT active FreeStyl e Ghulam 14 Day Sensor - eCW1 ([facility]) FreeStyle Ghulam 14 Day Sensor - FreeStyle Ghulam 14 Day Senso r - 02/13/2021 12:00:00 AM EDT active FreeStyl e Ghulam 14 Day Sensor - eCW1 ([facility]) FreeStyle Ghulam 14 Day Sensor - FreeStyle Ghulam 14 Day Senso r - 02/13/2021 12:00:00 AM EDT active FreeStyl e Ghulam 14 Day Sensor - eCW1 ([facility]) FreeStyle Ghulam 14 Day Sensor - FreeStyle Ghulam 14 Day Senso r - 02/13/2021 12:00:00 AM EDT active FreeStyl e Ghulam 14 Day Sensor - eCW1 ([facility]) 31 gauge x 3/16" 01/21/2021 12:00:00 AM [...] propionate 0.05 MG/ACTUAT Metered Dose [place] 50 mcg/actuation FLUTICASONE PROPIONATE 12/27/2020 12:00:00 AM [...] Autopap 10/26/2020 12:00:00 AM EDT active MEDENT ([facility] ) 12 % 09/30/2020 12:00:00 AM [...] {application} active Ammonium Lactate 12 % eCW1 ([facility]) ammonium lactate 120 MG/ML Topical Cream Ammonium Lact ate 12 % Ammonium Lactate 12 % 09/27/2020 12:00:00 AM EDT 1.0 {application} active Ammonium Lactate 12 % eCW1 ([facility]) ammonium lactate 120 MG/ML Topical Cream Ammonium Lact ate 12 % Ammonium Lactate 12 % 09/27/2020 12:00:00 AM EDT 1.0 {application} active Ammonium Lactate 12 % eCW1 ([facility]) ammonium lactate 120 MG/ML Topical Cream Ammonium Lact ate 12 % Ammonium Lactate 12 % 09/27/2020 12:00:00 AM EDT 1.0 {application} active Ammonium Lactate 12 % eCW1 ([facility]) ammonium lactate 120 MG/ML Topical Cream Ammonium Lact ate 12 % Ammonium Lactate 12 % 09/27/2020 12:00:00 AM EDT 1.0 {application} active Ammonium Lactate 12 % eCW1 ([facility]) ammonium lactate 120 MG/ML Topical Cream Ammonium Lact ate 12 % Ammonium Lactate 12 % 09/27/2020 12:00:00 AM EDT 1.0 {application} active Ammonium Lactate 12 % eCW1 ([facility]) ammonium lactate 120 MG/ML Topical Cream Ammonium Lact ate 12 % Ammonium Lactate 12 % 09/27/2020 12:00:00 AM EDT 1.0 {application} active Ammonium Lactate 12 % eCW1 ([facility]) ammonium lactate 120 MG/ML Topical Cream Ammonium Lact ate 12 % Ammonium Lactate 12 % 09/27/2020 12:00:00 AM EDT 1.0 {application} active Ammonium Lactate 12 % eCW1 ([facility]) 31 gauge x 3/16" 09/14/2020 12:00:00 AM [...] 12:00:00 AM EDT active CPAP mask eCW1 ([facility]) CPAP mask UNK 09/12/2020 12:00:00 AM EDT active CPAP mask eCW1 ([facility]) CPAP mask UNK 09/12/2020 12:00:00 AM EDT active CPAP mask eCW1 ([facility]) CPAP Machine UNK 09/12/2020 12:00:00 AM EDT activ e CPAP Machine eCW1 ([facility]) CPAP Machine UNK 09/12/2020 12:00:00 AM EDT activ e CPAP Machine eCW1 ([facility]) CPAP Machine UNK 09/12/2020 12:00:00 AM EDT activ e CPAP Machine eCW1 ([facility]) CPAP mask UNK 09/12/2020 12:00:00 AM EDT active CPAP mask eCW1 ([facility]) CPAP mask UNK 09/12/2020 12:00:00 AM EDT active CPAP mask eCW1 ([facility]) CPAP mask UNK 09/12/2020 12:00:00 AM EDT active CPAP mask eCW1 ([facility]) CPAP mask UNK 09/12/2020 12:00:00 AM EDT active CPAP mask eCW1 ([facility]) CPAP Machine UNK 09/12/2020 12:00:00 AM EDT activ e CPAP Machine eCW1 ([facility]) CPAP mask UNK 09/12/2020 12:00:00 AM EDT active CPAP mask eCW1 ([facility]) CPAP Machine UNK 09/12/2020 12:00:00 AM EDT activ e CPAP Machine eCW1 ([facility]) CPAP mask UNK 09/12/2020 12:00:00 AM EDT active CPAP mask eCW1 ([facility]) CPAP Machine UNK 09/12/2020 12:00:00 AM EDT activ e CPAP Machine eCW1 ([facility]) CPAP Machine UNK 09/12/2020 12:00:00 AM EDT activ e CPAP Machine eCW1 ([facility]) CPAP mask UNK 09/12/2020 12:00:00 AM EDT active CPAP mask eCW1 ([facility]) CPAP Machine UNK 09/12/2020 12:00:00 AM EDT activ e CPAP Machine eCW1 ([facility]) CPAP Machine UNK 09/12/2020 12:00:00 AM EDT activ e CPAP Machine eCW1 ([facility]) CPAP mask UNK 09/12/2020 12:00:00 AM EDT active CPAP mask eCW1 ([facility]) CPAP Machine UNK 09/12/2020 12:00:00 AM EDT activ e CPAP Machine eCW1 ([facility]) CPAP Machine UNK 09/12/2020 12:00:00 AM EDT activ e CPAP Machine eCW1 ([facility]) CPAP Machine UNK 09/12/2020 12:00:00 AM EDT activ e CPAP Machine eCW1 ([facility]) CPAP mask UNK 09/12/2020 12:00:00 AM EDT active CPAP mask eCW1 ([facility]) CPAP mask UNK 09/12/2020 12:00:00 AM EDT active CPAP mask eCW1 ([facility]) CPAP Machine UNK 09/12/2020 12:00:00 AM EDT activ e CPAP Machine eCW1 ([facility]) CPAP Machine UNK 09/12/2020 12:00:00 AM EDT activ e CPAP Machine eCW1 ([facility]) CPAP mask UNK 09/12/2020 12:00:00 AM EDT active CPAP mask eCW1 ([facility]) CPAP Machine UNK 09/12/2020 12:00:00 AM EDT activ e CPAP Machine eCW1 ([facility]) CPAP Machine UNK 09/12/2020 12:00:00 AM EDT activ e CPAP Machine eCW1 ([facility]) CPAP Machine UNK 09/12/2020 12:00:00 AM EDT activ e CPAP Machine eCW1 ([facility]) CPAP Machine UNK 09/12/2020 12:00:00 AM EDT activ e CPAP Machine eCW1 ([facility]) CPAP Machine UNK 09/12/2020 12:00:00 AM EDT activ e CPAP Machine eCW1 ([facility]) CPAP Machine UNK 09/12/2020 12:00:00 AM EDT activ e CPAP Machine eCW1 ([facility]) CPAP mask UNK 09/12/2020 12:00:00 AM EDT active CPAP mask eCW1 ([facility]) CPAP mask UNK 09/12/2020 12:00:00 AM EDT active CPAP mask eCW1 ([facility]) CPAP mask UNK 09/12/2020 12:00:00 AM EDT active CPAP mask eCW1 ([facility]) CPAP mask UNK 09/12/2020 12:00:00 AM EDT active CPAP mask eCW1 ([facility]) CPAP Machine UNK 09/12/2020 12:00:00 AM EDT activ e CPAP Machine eCW1 ([facility]) CPAP mask UNK 09/12/2020 12:00:00 AM EDT active CPAP mask eCW1 ([facility]) CPAP Machine UNK 09/12/2020 12:00:00 AM EDT activ e CPAP Machine eCW1 ([facility]) CPAP Machine UNK 09/12/2020 12:00:00 AM EDT activ e CPAP Machine eCW1 ([facility]) CPAP Machine UNK 09/12/2020 12:00:00 AM EDT activ e CPAP Machine eCW1 ([facility]) CPAP mask UNK 09/12/2020 12:00:00 AM EDT active CPAP mask eCW1 ([facility]) CPAP mask UNK 09/12/2020 12:00:00 AM EDT active CPAP mask eCW1 ([facility]) CPAP Machine UNK 09/12/2020 12:00:00 AM EDT activ e CPAP Machine eCW1 ([facility]) CPAP mask UNK 09/12/2020 12:00:00 AM EDT active CPAP mask eCW1 ([facility]) CPAP Machine UNK 09/12/2020 12:00:00 AM EDT activ e CPAP Machine eCW1 ([facility]) CPAP mask UNK 09/12/2020 12:00:00 AM EDT active CPAP mask eCW1 ([facility]) CPAP mask UNK 09/12/2020 12:00:00 AM EDT active CPAP mask eCW1 ([facility]) CPAP mask UNK 09/12/2020 12:00:00 AM EDT active CPAP mask eCW1 ([facility]) CPAP mask UNK 09/12/2020 12:00:00 AM EDT active CPAP mask eCW1 ([facility]) 24 HR Metformin hydrochloride 500 MG Extended [...] 07/25/2020 [facility] Optifoam Gentle Foam Dressings [facility] 06/30/2020 12:00:00 AM EST active Optifoam Gentle Foam Dressings eCW1 ([facility]) Optifoam Gentle Foam Dressings UNK 06/30/2020 12:00:00 AM EST active Opt[employer] Gent[employer]am [employer]ings eCW1 ([facility]) Polyethylene Glycol 400 4 MG/ML / Propyl meliton glycol 3 MG/ML Ophthalmic Solution [Systane] Systane Ultra 0.4-0.3 % Systane Ultra 0.4-0.3 % 06/30/2020 12:00:00 AM EST active Systane Ultra 0.4 -0.3 % eCW1 ([facility]) Optifoam Gentle Foam Dressings UNK 06/30/2020 12:00:00 AM EST active Optifoam Gentle Foam Dressings eCW1 ([facility]) Polyethylene Glycol 400 4 MG/ML / Propyl meliton glycol 3 MG/ML Ophthalmic Solution [Systane] Systane Ultra 0.4-0.3 % Systane Ultra 0.4-0.3 % 06/30/2020 12:00:00 AM EST active Systane Ultra 0.4 -0.3 % eCW1 ([facility]) Optifoam Gentle Foam Dressings UN 06/30/2020 12:00:00 AM EST active Optifoam Gentle Foam Dressings eCW1 ([facility]) Optifoam Gentle Foam Dressings UNK 06/30/2020 12:00:00 AM EST active Optifoam Gentle [employer]am Dressings eCW1 ([facility]) Polyethylene Glycol 400 4 MG/ML / Propyl meliton glycol 3 MG/ML Ophthalmic Solution [Systane] Systane Ultra 0.4-0.3 % Systane Ultra 0.4-0.3 % 06/30/2020 12:00:00 AM EST active Systane Ultra 0.4 -0.3 % eCW1 ([facility]) Polyethylene Glycol 400 4 MG/ML / Propyl meliton glycol 3 MG/ML Ophthalmic Solution [Systane] Systane Ultra 0.4-0.3 % Systane Ultra 0.4-0.3 % 06/30/2020 12:00:00 AM EST active Systane Ultra 0.4 -0.3 % eCW1 ([facility]) Optifoam Gentle Foam Dressings UNK 06/30/2020 12:00:00 AM EST active Optifoam Gentle Foam Dressings eCW1 ([facility]) Optifoam Gentle Foam Dressings UNK 06/30/2020 12:00:00 AM EST active Opt[employer]oam Gentle [employer]am [employer] eCW1 ([facility]) Opt[employer]oam Gentle [employer]am [employer]ings UNK 06/30/2020 12:00:00 AM EST active Optifoam Gentle [employer]am Dressings eCW1 ([facility]) Opt[employer]oam Gentle [employer]am Dressings UNK 06/30/2020 12:00:00 AM EST active Opt[employer]oam Gentle [employer]am Dressings eCW1 ([facility]) Polyethylene Glycol 400 4 MG/ML / Propyl meliton glycol 3 MG/ML Ophthalmic Solution [Systane] Systane Ultra 0.4-0.3 % Systane Ultra 0.4-0.3 % 06/30/2020 12:00:00 AM EST active Systane Ultra 0.4 -0.3 % eCW1 ([facility]) Optifoam Gentle Foam Dressings UNK 06/30/2020 12:00:00 AM EST active Optifoam Gentle Foam Dressings eCW1 ([facility]) Optifoam Gentle [employer]am Dressings UNK 06/30/2020 12:00:00 AM EST active Optifoam Gentle Foam Dressings eCW1 ([facility]) Polyethylene Glycol 400 4 MG/ML / Propyl meliton glycol 3 MG/ML Ophthalmic Solution [Systane] Systane Ultra 0.4-0.3 % Systane Ultra 0.4-0.3 % 06/30/2020 12:00:00 AM EST active Systane Ultra 0.4 -0.3 % eCW1 ([facility]) Optifoam Gentle Foam Dressings UNK 06/30/2020 12:00:00 AM EST active Optifoam Gentle Foam Dressings eCW1 ([facility]) Polyethylene Glycol 400 4 MG/ML / Propyl meliton glycol 3 MG/ML Ophthalmic Solution [Systane] Systane Ultra 0.4-0.3 % Systane Ultra 0.4-0.3 % 06/30/2020 12:00:00 AM EST active Systane Ultra 0.4 -0.3 % eCW1 ([facility]) Optifoam Gentle Foam Dressings UNK 06/30/2020 12:00:00 AM EST active Optifoam Gentle Foam Dressings eCW1 ([facility]) Optifoam Gentle Foam Dressings UNK 06/30/2020 12:00:00 AM EST active Optifoam Gentle Foam Dressings eCW1 ([facility]) Optifoam Gentle Foam Dressings UNK 06/30/2020 12:00:00 AM EST active Optifoam Gentle Foam Dressings eCW1 ([facility]) Optifoam Gentle Foam Dressings UNK 06/30/2020 12:00:00 AM EST active Optifoam Gentle Foam Dressings eCW1 ([facility]) Optifoam Gentle Foam Dressings UNK 06/30/2020 12:00:00 AM EST active Optifoam Gentle Foam Dressings eCW1 ([facility]) Polyethylene Glycol 400 4 MG/ML / Propyl meliton glycol 3 MG/ML Ophthalmic Solution [Systane] Systane Ultra 0.4-0.3 % Systane Ultra 0.4-0.3 % 06/30/2020 12:00:00 AM EST active Systane Ultra 0.4 -0.3 % eCW1 ([facility]) Optifoam Gentle Foam Dressings UNK 06/30/2020 12:00:00 AM EST active Optifoam Gentle Foam Dressings eCW1 ([facility]) Polyethylene Glycol 400 4 MG/ML / Propyl meliton glycol 3 MG/ML Ophthalmic Solution [Systane] Systane Ultra 0.4-0.3 % Systane Ultra 0.4-0.3 % 06/30/2020 12:00:00 AM EST active Systane Ultra 0.4 -0.3 % eCW1 ([facility]) Polyethylene Glycol 400 4 MG/ML / Propyl meliton glycol 3 MG/ML Ophthalmic Solution [Systane] Systane Ultra 0.4-0.3 % Systane Ultra 0.4-0.3 % 06/30/2020 12:00:00 AM EST active Systane Ultra 0.4 -0.3 % eCW1 ([facility]) Optifoam Gentle Foam Dressings UNK 06/30/2020 12:00:00 AM EST active Optifoam Gentle Foam Dressings eCW1 ([facility]) Optifoam Gentle Foam Dressings UNK 06/30/2020 12:00:00 AM EST active Optifoam Gentle Foam Dressings eCW1 ([facility]) Optifoam Gentle Foam Dressings UNK 06/30/2020 12:00:00 AM EST active Optifoam Gentle Foam Dressings eCW1 ([facility]) Optifoam Gentle Foam Dressings UNK 06/30/2020 12:00:00 AM EST active Optifoam Gentle Foam Dressings eCW1 ([facility]) Optifoam Gentle Foam Dressings UNK 06/30/2020 12:00:00 AM EST active Optifoam Gentle Foam Dressings eCW1 ([facility]) Polyethylene Glycol 400 4 MG/ML / Propyl meliton glycol 3 MG/ML Ophthalmic Solution [Systane] Systane Ultra 0.4-0.3 % Systane Ultra 0.4-0.3 % 06/30/2020 12:00:00 AM EST active Systane Ultra 0.4 -0.3 % eCW1 ([facility]) Polyethylene Glycol 400 4 MG/ML / Propyl meliton glycol 3 MG/ML Ophthalmic Solution [Systane] Systane Ultra 0.4-0.3 % Systane Ultra 0.4-0.3 % 06/30/2020 12:00:00 AM EST active Systane Ultra 0.4 -0.3 % eCW1 ([facility]) Optifoam Gentle Foam Dressings UNK 06/30/2020 12:00:00 AM EST active Optifoam Gentle Foam Dressings eCW1 ([facility]) Polyethylene Glycol 400 4 MG/ML / Propyl meliton glycol 3 MG/ML Ophthalmic Solution [Systane] Systane Ultra 0.4-0.3 % Systane Ultra 0.4-0.3 % 06/30/2020 12:00:00 AM EST active Systane Ultra 0.4 -0.3 % eCW1 ([facility]) Optifoam Gentle Foam Dressings UNK 06/30/2020 12:00:00 AM EST active Optifoam Gentle Foam Dressings eCW1 ([facility]) Optifoam Gentle Foam Dressings UNK 06/30/2020 12:00:00 AM EST active Optifoam Gentle Foam Dressings eCW1 ([facility]) Optifoam Gentle Foam Dressings UNK 06/30/2020 12:00:00 AM EST active Optifoam Gentle Foam Dressings eCW1 ([facility]) Optifoam Gentle Foam Dressings UNK 06/30/2020 12:00:00 AM EST active Optifoam Gentle Foam Dressings eCW1 ([facility]) Optifoam Gentle Foam Dressings UNK 06/30/2020 12:00:00 AM EST active Optifoam Gentle Foam Dressings eCW1 ([facility]) Optifoam Gentle Foam Dressings UNK 06/30/2020 12:00:00 AM EST active Optifoam Gentle Foam Dressings eCW1 ([facility]) Optifoam Gentle Foam Dressings UNK 06/30/2020 12:00:00 AM EST active Optifoam Gentle Foam Dressings eCW1 ([facility]) Polyethylene Glycol 400 4 MG/ML / Propyl meliton glycol 3 MG/ML Ophthalmic Solution [Systane] Systane Ultra 0.4-0.3 % Systane Ultra 0.4-0.3 % 06/30/2020 12:00:00 AM EST active Systane Ultra 0.4 -0.3 % eCW1 ([facility]) Optifoam Gentle Foam Dressings UNK 06/30/2020 12:00:00 AM EST active Optifoam Gentle Foam Dressings eCW1 ([facility]) Polyethylene Glycol 400 4 MG/ML / Propyl meliton glycol 3 MG/ML Ophthalmic Solution [Systane] Systane Ultra 0.4-0.3 % Systane Ultra 0.4-0.3 % 06/30/2020 12:00:00 AM EST active Systane Ultra 0.4 -0.3 % eCW1 ([facility]) Optifoam Gentle Foam Dressings UNK 06/30/2020 12:00:00 AM EST active Optifoam Gentle Foam Dressings eCW1 ([facility]) Optifoam Gentle Foam Dressings UNK 06/30/2020 12:00:00 AM EST active Optifoam Gentle Foam Dressings eCW1 ([facility]) Optifoam Gentle Foam Dressings UNK 06/30/2020 12:00:00 AM EST active Optifoam Gentle Foam Dressings eCW1 ([facility]) Optifoam Gentle Foam Dressings UNK 06/30/2020 12:00:00 AM EST active Optifoam Gentle Foam Dressings eCW1 ([facility]) Polyethylene Glycol 400 4 MG/ML / Propyl meliton glycol 3 MG/ML Ophthalmic Solution [Systane] Systane Ultra 0.4-0.3 % Systane Ultra 0.4-0.3 % 06/30/2020 12:00:00 AM EST active Systane Ultra 0.4 -0.3 % eCW1 ([facility]) Optifoam Gentle Foam Dressings UNK 06/30/2020 12:00:00 AM EST active Optifoam Gentle Foam Dressings eCW1 ([facility]) Optifoam Gentle Foam Dressings UNK 06/30/2020 12:00:00 AM EST active Optifoam Gentle Foam Dressings eCW1 ([facility]) COMPRESSION STOCKINGS 15-20 mmHg UNK 06/27/2020 12:00:00 AM EST active COMPRESSION STOCKINGS 15-20 mmHg eCW1 ([facility]) COMPRESSION STOCKINGS 15-20 mmHg UNK 06/27/2020 12:00:00 AM EST active COMPRESSION STOCKINGS 15-20 mmHg eCW1 ([facility]) COMPRESSION STOCKINGS 15-20 mmHg UNK 06/27/2020 12:00:00 AM EST active COMPRESSION STOCKINGS 15-20 mmHg eCW1 ([facility]) COMPRESSION STOCKINGS 15-20 mmHg UNK 06/27/2020 12:00:00 AM EST active COMPRESSION STOCKINGS 15-20 mmHg eCW1 ([facility]) COMPRESSION STOCKINGS 15-20 mmHg UNK 06/27/2020 12:00:00 AM EST active COMPRESSION STOCKINGS 15-20 mmHg eCW1 ([facility]) COMPRESSION STOCKINGS 15-20 mmHg UNK 06/27/2020 12:00:00 AM EST active COMPRESSION STOCKINGS 15-20 mmHg eCW1 ([facility]) COMPRESSION STOCKINGS 15-20 mmHg UNK 06/27/2020 12:00:00 AM EST active COMPRESSION STOCKINGS 15-20 mmHg eCW1 ([facility]) COMPRESSION STOCKINGS 15-20 mmHg UNK 06/27/2020 12:00:00 AM EST active COMPRESSION STOCKINGS 15-20 mmHg eCW1 ([facility]) COMPRESSION STOCKINGS 15-20 mmHg UNK 06/27/2020 12:00:00 AM EST active COMPRESSION STOCKINGS 15-20 mmHg eCW1 ([facility]) COMPRESSION STOCKINGS 15-20 mmHg UNK 06/27/2020 12:00:00 AM EST active COMPRESSION STOCKINGS 15-20 mmHg eCW1 ([facility]) COMPRESSION STOCKINGS 15-20 mmHg UNK 06/27/2020 12:00:00 AM EST active COMPRESSION STOCKINGS 15-20 mmHg eCW1 ([facility]) COMPRESSION STOCKINGS 15-20 mmHg UNK 06/27/2020 12:00:00 AM EST active COMPRESSION STOCKINGS 15-20 mmHg eCW1 ([facility]) COMPRESSION STOCKINGS 15-20 mmHg UNK 06/27/2020 12:00:00 AM EST active COMPRESSION STOCKINGS 15-20 mmHg eCW1 ([facility]) COMPRESSION STOCKINGS 15-20 mmHg UNK 06/27/2020 12:00:00 AM EST active COMPRESSION STOCKINGS 15-20 mmHg eCW1 ([facility]) COMPRESSION STOCKINGS 15-20 mmHg UNK 06/27/2020 12:00:00 AM EST active COMPRESSION STOCKINGS 15-20 mmHg eCW1 ([facility]) COMPRESSION STOCKINGS 15-20 mmHg UNK 06/27/2020 12:00:00 AM EST active COMPRESSION STOCKINGS 15-20 mmHg eCW1 ([facility]) COMPRESSION STOCKINGS 15-20 mmHg UNK 06/27/2020 12:00:00 AM EST active COMPRESSION STOCKINGS 15-20 mmHg eCW1 ([facility]) COMPRESSION STOCKINGS 15-20 mmHg UNK 06/27/2020 12:00:00 AM EST active COMPRESSION STOCKINGS 15-20 mmHg eCW1 ([facility]) COMPRESSION STOCKINGS 15-20 mmHg UNK 06/27/2020 12:00:00 AM EST active COMPRESSION STOCKINGS 15-20 mmHg eCW1 ([facility]) COMPRESSION STOCKINGS 15-20 mmHg UNK 06/27/2020 12:00:00 AM EST active COMPRESSION STOCKINGS 15-20 mmHg eCW1 ([facility]) MetFORMIN HCl 500 MG MetFORMIN HCl 06/27/2020 12:00:00 AM EST 50 0.0 {mg} completed NETSMART ([facility]) Ferrous Sulfate 325 (65 Fe) MG Ferrous Sulfate 06/27/2020 12:00:00 AM EST completed NETSMART ([facility]) Vitamin D3 1000 UNIT Vitamin D3 06/27/2020 12:00:00 AM EST 5000. 0 {Units} [facility] Glimepiride 4 MG Glimepiride 06/27/2020 12:00:00 AM EST 4.0 {mg} completed NETSMART ([facility]) COMPRESSION STOCKINGS 15-20 mmHg UNK 06/27/2020 12:00:00 AM EST active COMPRESSION STOCKINGS 15-20 mmHg eCW1 ([facility]) COMPRESSION STOCKINGS 15-20 mmHg UNK 06/27/2020 12:00:00 AM EST active COMPRESSION STOCKINGS 15-20 mmHg eCW1 ([facility]) COMPRESSION STOCKINGS 15-20 mmHg UNK 06/27/2020 12:00:00 AM EST active COMPRESSION STOCKINGS 15-20 mmHg eCW1 ([facility]) COMPRESSION STOCKINGS 15-20 mmHg UNK 06/27/2020 12:00:00 AM EST active COMPRESSION STOCKINGS 15-20 mmHg eCW1 ([facility]) Fluticasone Propionate 50 MCG/ACT Fluticasone Propionate 04/2020 12:00:00 AM EST completed NETSMAR T ([facility]) Tresiba FlexTouch 200 UNIT/ML Tresiba FlexTouch 06/27/2020 12:00:00 AM EST 10.0 {unit} completed NETSMART ( [facility]) Eliquis 5 MG Eliquis 06/27/2020 12:00:00 AM EST 5.0 {mg} completed NETSMART ([facility] ) COMPRESSION STOCKINGS 15-20 mmHg UNK 06/27/2020 12:00:00 AM EST active COMPRESSION STOCKINGS 15-20 mmHg eCW1 ([facility]) Torsemide 20 MG Torsemide 06/27/2020 12:00:00 AM EST 30.0 {mg} completed NETSMART ([facility]) Potassium Chloride ER 10 MEQ Potassium Chloride ER 06/27/2020 12:00 :00 AM EST 10.0 {mEq} completed NETSMART ([facility]) COMPRESSION STOCKINGS 15-20 mmHg UNK 06/27/2020 12:00:00 AM EST active COMPRESSION STOCKINGS 15-20 mmHg eCW1 ([facility]) Aspirin EC Adult Low Strength 81 MG Aspirin EC Adult Low Str ength 06/27/2020 12:00:00 AM EST 81.0 {mg} completed NETSMART ([facility]) Vitamin B12 1000 MCG Vitamin B12 06/27/2020 12:00:00 AM EST 1000 .0 {mcg} completed NETSMART ([facility]) Rosuvastatin Calcium 20 MG Rosuvastatin Calcium 06/27/2020 12:00:00 AM EST 20.0 {mg} completed NETSMART ([facility]) Omeprazole 40 MG Omeprazole 06/27/2020 12:00:00 AM EST 40.0 {mg} completed NETSMART ([facility]) COMPRESSION STOCKINGS 15-20 mmHg UNK 06/27/2020 12:00:00 AM EST active COMPRESSION STOCKINGS 15-20 mmHg eCW1 ([facility]) Allopurinol 300 MG Allopurinol 06/27/2020 12:00:00 AM EST 300.0 {mg} completed NETSMART ([facility]) COMPRESSION STOCKINGS 15-20 mmHg UNK 06/27/2020 12:00:00 AM EST active COMPRESSION STOCKINGS 15-20 mmHg eCW1 ([facility]) COMPRESSION STOCKINGS 15-20 mmHg UNK 06/27/2020 12:00:00 AM EST active COMPRESSION STOCKINGS 15-20 mmHg eCW1 ([facility]) COMPRESSION STOCKINGS 15-20 mmHg UNK 06/27/2020 12:00:00 AM EST active COMPRESSION STOCKINGS 15-20 mmHg eCW1 ([facility]) COMPRESSION STOCKINGS 15-20 mmHg UNK 06/27/2020 12:00:00 AM EST active COMPRESSION STOCKINGS 15-20 mmHg eCW1 ([facility]) COMPRESSION STOCKINGS 15-20 mmHg UNK 06/27/2020 12:00:00 AM EST active COMPRESSION STOCKINGS 15-20 mmHg eCW1 ([facility]) COMPRESSION STOCKINGS 15-20 mmHg UNK 06/27/2020 12:00:00 AM EST active COMPRESSION STOCKINGS 15-20 mmHg eCW1 ([facility]) COMPRESSION STOCKINGS 15-20 mmHg UNK 06/27/2020 12:00:00 AM EST active COMPRESSION STOCKINGS 15-20 mmHg eCW1 ([facility]) COMPRESSION STOCKINGS 15-20 mmHg UNK 06/27/2020 12:00:00 AM EST active COMPRESSION STOCKINGS 15-20 mmHg eCW1 ([facility]) COMPRESSION STOCKINGS 15-20 mmHg UNK 06/27/2020 12:00:00 AM EST active COMPRESSION STOCKINGS 15-20 mmHg eCW1 ([facility]) COMPRESSION STOCKINGS 15-20 mmHg UNK 06/27/2020 12:00:00 AM EST active COMPRESSION STOCKINGS 15-20 mmHg eCW1 ([facility]) COMPRESSION STOCKINGS 15-20 mmHg UNK 06/27/2020 12:00:00 AM EST active COMPRESSION STOCKINGS 15-20 mmHg eCW1 ([facility]) COMPRESSION STOCKINGS 15-20 mmHg UNK 06/27/2020 12:00:00 AM EST active COMPRESSION STOCKINGS 15-20 mmHg eCW1 ([facility]) Diclofenac Sodium 1 % Diclofenac Sodium 06/27/2020 12:00:00 AM EST completed NETSMART ([facility]) COMPRESSION STOCKINGS 15-20 mmHg UNK 06/27/2020 12:00:00 AM EST active COMPRESSION STOCKINGS 15-20 mmHg eCW1 ([facility]) COMPRESSION STOCKINGS 15-20 mmHg UNK 06/27/2020 12:00:00 AM EST active COMPRESSION STOCKINGS 15-20 mmHg eCW1 ([facility]) 20 mg 06/22/2020 12:00:00 AM EST tablet [...] AT BEDTIME SOLD: 08/15/2020 [facility] [place] 31G X 6 MM [place] 31G X 6 MM 05/13/2020 12:00:[address] active [place] 31G X 6 MM eC W1 ([facility]) Pen [place] UNK 05/13/2020 12:00:00 AM EST active [place] eCW1 ([facility]) [place] UNK 05/13/2020 12:00:00 AM EST active [place] eCW1 ([facility]) Tresiba FlexTouch 200 UNIT/ML Tresiba FlexTouch 200 UNIT/ML 05/13/2020 12:00:00 AM EST active Tresiba FlexTouch 200 UNIT/ML eCW1 ([facility]) Pen [place] UNK 05/13/2020 12:00:00 AM EST active [place] eCW1 ([facility]) [place] UNK 05/13/2020 12:00:00 AM EST active [place] eCW1 ([facility]) Pen [place] 31G X 5 MM [place] 31G X 5 MM 05/13/2020 12:00:[address] active [place] 31G X 5 MM eC W1 ([facility]) [place] UNK 05/13/2020 12:00:00 AM EST active [place] eCW1 ([facility]) [place] UNK 05/13/2020 12:00:00 AM EST active [place] eCW1 ([facility]) Tresiba FlexTouch 200 UNIT/ML Tresiba FlexTouch 200 UNIT/ML 05/13/2020 12:00:00 AM EST active Tresiba FlexTouch 200 UNIT/ML eCW1 ([facility]) [place] 31G X 6 MM [place] 31G X 6 MM 05/13/2020 12:00:[address] active [place] 31G X 6 MM eC W1 ([facility]) [place] 31G X 6 MM [place] 31G X 6 MM 05/13/2020 12:00:[address] active [place] 31G X 6 MM eC W1 ([facility]) [place] UNK 05/13/2020 12:00:00 AM EST active [place] eCW1 ([facility]) [place] 31G X 6 MM [place] 31G X 6 MM 05/13/2020 12:00:[address] active [place] 31G X 6 MM eC W1 ([facility]) [place] UNK 05/13/2020 12:00:00 AM EST active [place] eCW1 ([facility]) Tresiba FlexTouch 200 UNIT/ML Tresiba FlexTouch 200 UNIT/ML 05/13/2020 12:00:00 AM EST active Tresiba FlexTouch 200 UNIT/ML eCW1 ([facility]) [place] UNK 05/13/2020 12:00:00 AM EST active [place] eCW1 ([facility]) Tresiba FlexTouch 200 UNIT/ML Tresiba FlexTouch 200 UNIT/ML 05/13/2020 12:00:00 AM EST active Tresiba FlexTouch 200 UNIT/ML eCW1 ([facility]) [place] UNK 05/13/2020 12:00:00 AM EST active [place] eCW1 ([facility]) Pen [place] UNK 05/13/2020 12:00:00 AM EST active [place] eCW1 ([facility]) Pen [place] 31G X 6 MM [place] 31G X 6 MM 05/13/2020 12:00:[address] active [place] 31G X 6 MM eC W1 ([facility]) [place] UNK 05/13/2020 12:00:00 AM EST active [place] eCW1 ([facility]) [place] UNK 05/13/2020 12:00:00 AM EST active [place] eCW1 ([facility]) Tresiba FlexTouch 200 UNIT/ML Tresiba FlexTouch 200 UNIT/ML 05/13/2020 12:00:00 AM EST active Tresiba FlexTouch 200 UNIT/ML eCW1 ([facility]) [place] UNK 05/13/2020 12:00:00 AM EST active [place] eCW1 ([facility]) [place] UNK 05/13/2020 12:00:00 AM EST active [place] eCW1 ([facility]) [place] UNK 05/13/2020 12:00:00 AM EST active [place] eCW1 ([facility]) Tresiba FlexTouch [...] UNIT/ML eCW1 ([facility]) Pen [place] 31G X 6 MM [place] 31G X 6 MM 05/13/2020 12:00:[address] active [place] 31G X 6 MM eC W1 ([facility]) [place] UNK 05/13/2020 12:00:00 AM EST active [place] eCW1 ([facility]) [place] UNK 05/13/2020 12:00:00 AM EST active [place] eCW1 ([facility]) Tresiba FlexTouch 200 UNIT/ML Tresiba FlexTouch 200 UNIT/ML 05/13/2020 12:00:00 AM EST active Tresiba FlexTouch 200 UNIT/ML eCW1 ([facility]) Tresiba FlexTouch 200 UNIT/ML Tresiba FlexTouch 200 UNIT/ML 05/13/2020 12:00:00 AM EST active Tresiba FlexTouch 200 UNIT/ML eCW1 ([facility]) [place] UNK 05/13/2020 12:00:00 AM EST active [place] eCW1 ([facility]) [place] UNK 05/13/2020 12:00:00 AM EST active [place] eCW1 ([facility]) Tresiba FlexTouch [...] UNIT/ML eCW1 ([facility]) [place] UNK 05/13/2020 12:00:00 AM EST active [place] eCW1 ([facility]) Tresiba FlexTouch 200 UNIT/ML Tresiba FlexTouch 200 UNIT/ML 05/13/2020 12:00:00 AM EST active Tresiba FlexTouch 200 UNIT/ML eCW1 ([facility]) [place] UNK 05/13/2020 12:00:00 AM EST active [place] eCW1 ([facility]) Tresiba FlexTouch 200 UNIT/ML Tresiba FlexTouch 200 UNIT/ML 05/13/2020 12:00:00 AM EST active Tresiba FlexTouch 200 UNIT/ML eCW1 ([facility]) [place] 31G X 6 MM [place] 31G X 6 MM 05/13/2020 12:00:[address] active [place] 31G X 6 MM eC W1 ([facility]) [place] UNK 05/13/2020 12:00:00 AM EST active [place] eCW1 ([facility]) Tresiba FlexTouch 200 UNIT/ML Tresiba FlexTouch 200 UNIT/ML 05/13/2020 12:00:00 AM EST active Tresiba FlexTouch 200 UNIT/ML eCW1 ([facility]) Tresiba FlexTouch 200 UNIT/ML Tresiba FlexTouch 200 UNIT/ML 05/13/2020 12:00:00 AM EST active Tresiba FlexTouch 200 UNIT/ML eCW1 ([facility]) [place] UNK 05/13/2020 12:00:00 AM EST active [place] eCW1 ([facility]) [place] UNK 05/13/2020 12:00:00 AM EST active [place] eCW1 ([facility]) [place] 31G X 5 MM [place] 31G X 5 MM 05/13/2020 12:00:[address] active [place] 31G X 5 MM eC W1 ([facility]) Tresiba FlexTouch 200 [...] UNIT/ML eCW1 ([facility]) [place] 31G X 5 MM [place] 31G X 5 MM 05/13/2020 12:00:[address] active [place] 31G X 5 MM eC W1 ([facility]) Tresiba FlexTouch 200 UNIT/ML Tresiba FlexTouch 200 UNIT/ML 05/13/2020 12:00:00 AM EST active Tresiba FlexTouch 200 UNIT/ML eCW1 ([facility]) [place] 31G X 6 MM [place] 31G X 6 MM 05/13/2020 12:00:[address] active [place] 31G X 6 MM eC W1 ([facility]) [place] 31G X 5 MM [place] 31G X 5 MM 05/13/2020 12:00:[address] active [place] 31G X 5 MM eC W1 ([facility]) Tresiba FlexTouch 200 UNIT/ML Tresiba FlexTouch 200 UNIT/ML 05/13/2020 12:00:00 AM EST active Tresiba FlexTouch 200 UNIT/ML eCW1 ([facility]) Tresiba FlexTouch 200 UNIT/ML Tresiba FlexTouch 200 UNIT/ML 05/13/2020 12:00:00 AM EST active Tresiba FlexTouch 200 UNIT/ML eCW1 ([facility]) [place] UNK 05/13/2020 12:00:00 AM EST active [place] eCW1 ([facility]) [place] UNK 05/13/2020 12:00:00 AM EST active [place] eCW1 ([facility]) [place] 31G X 5 MM [place] 31G X 5 MM 05/13/2020 12:00:[address] active [place] 31G X 5 MM eC W1 ([facility]) Tresiba FlexTouch 200 UNIT/ML Tresiba FlexTouch 200 UNIT/ML 05/13/2020 12:00:00 AM EST active Tresiba FlexTouch 200 UNIT/ML eCW1 ([facility]) [place] 31G X 6 MM [place] 31G X 6 MM 05/13/2020 12:00:[address] active [place] 31G X 6 MM eC W1 ([facility]) 31 gauge x 3/16" 05/13/2020 12:00:00 AM EST needle 30 USE DIRECTED ONCE DAILY USE DIRECTED ONCE DAILY SOLD: 08/15/2020 [facility] [place] UNK 05/13/2020 12:00:00 AM EST active [place] eCW1 ([facility]) [place] 31G X 5 MM [place] 31G X 5 MM 05/13/2020 12:00:[address] active [place] 31G X 5 MM eC W1 ([facility]) Tresiba FlexTouch 200 UNIT/ML Tresiba FlexTouch 200 UNIT/ML 05/13/2020 12:00:00 AM EST active Tresiba FlexTouch 200 UNIT/ML eCW1 ([facility]) [place] 31G X 6 MM [place] 31G X 6 MM 05/13/2020 12:00:[address] active [place] 31G X 6 MM eC W1 ([facility]) Tresiba FlexTouch 200 UNIT/ML Tresiba FlexTouch 200 UNIT/ML 05/13/2020 12:00:00 AM EST active Tresiba FlexTouch 200 UNIT/ML eCW1 ([facility]) [place] UNK 05/13/2020 12:00:00 AM EST active [place] eCW1 ([facility]) [place] UNK 05/13/2020 12:00:00 AM EST active [place] eCW1 ([facility]) [place] UNK 05/13/2020 12:00:00 AM EST active [place] eCW1 ([facility]) Tresiba FlexTouch [...] ONCE DAILY SOLD: 07/16/2020 [facility] [place] UNK 05/13/2020 12:00:00 AM EST active [place] eCW1 ([facility]) [place] 31G X 6 MM [place] 31G X 6 MM 05/13/2020 12:00:[address] active [place] 31G X 6 MM eC W1 ([facility]) [place] 31G X 6 MM [place] 31G X 6 MM 05/13/2020 12:00:[address] active [place] 31G X 6 MM eC W1 ([facility]) Tresiba FlexTouch 200 UNIT/ML Tresiba FlexTouch 200 UNIT/ML 05/13/2020 12:00:00 AM EST active Tresiba FlexTouch 200 UNIT/ML eCW1 ([facility]) [place] 31G X 5 MM [place] 31G X 5 MM 05/13/2020 12:00:[address] active [place] 31G X 5 MM eC W1 ([facility]) 20 mg 04/26/2020 12:00:00 AM EST tablet 80 TAKE ONE TABLET BY MOUTH EVERY MORNING TAKE ONE TABLET BY MOUTH EVERY MORNING SOLD: 05/10/2020 [facility] 20 mg 04/26/2020 12:00:00 AM EST tablet 10 TAKE ONE TABLET BY MOUTH EVERY MORNING TAKE ONE TABLET BY MOUTH EVERY MORNING SOLD: 04/28/2020 [facility] 03/14/2020 12:00:00 AM EST misc 180 [...] BY MOUTH ONCE A DAY SOLD: 02/22/2020 [facility] torsemide 20 MG Oral Tablet Torsemide [...] TABLET BY MOUTH EVERY DAY SOLD: 02/17/2020 [facility] torsemide 10 MG Oral Tablet Torsemide [...] ONCE DAILY WITH EVENING MEAL SOLD: 02/08/2020 [facility] MetFORMIN HCl ER 500 MG MetFORMIN HCl ER 500 MG 02/03/2020 12:00:00 AM EDT 1.0 {tablet_with_evening_meal} active MetF ORMIN HCl ER 500 MG eCW1 ([facility]) MetFORMIN HCl ER 500 MG MetFORMIN HCl ER 500 MG 02/03/2020 12:00:00 AM EDT 1.0 {tablet_with_evening_meal} active MetF ORMIN HCl ER 500 MG eCW1 ([facility]) MetFORMIN HCl ER 500 MG MetFORMIN HCl ER 500 MG 02/03/2020 12:00:00 AM EDT 1.0 {tablet_with_evening_meal} active MetF ORMIN HCl ER 500 MG eCW1 ([facility]) MetFORMIN HCl ER 500 MG MetFORMIN HCl ER 500 MG 02/03/2020 12:00:00 AM EDT 1.0 {tablet_with_evening_meal} active MetF ORMIN HCl ER 500 MG eCW1 ([facility]) MetFORMIN HCl ER 500 MG MetFORMIN HCl ER 500 MG 02/03/2020 12:00:00 AM EDT 1.0 {tablet_with_evening_meal} active MetF ORMIN HCl ER 500 MG [facility]CW1 ([facility] [...] USE TWO TIMES A DAY SOLD: 06/24/2020 [facility] BLOOD SUGAR DIAGNOSTIC 01/23/2020 12:00:00 AM EDT strip 100 USE TWO TIMES A DAY USE TWO TIMES A DAY SOLD: 05/02/2020 [facility] BLOOD SUGAR DIAGNOSTIC 01/23/2020 12:00:00 AM [...] type / Coverage type Policy ID Covered constitution party ID Covered constitution party's relationship to katz Policy Katz Plan Information MEDICARE [id number] SP [id number] A MEDICARE [id number] SP [id number] A MEDICARE COMPLETE [id number] SP [id number] MEDICARE COMPLETE [id number] SP [id number] [place] PROGRESSIVE [id number] SP [id number] TODAYS OPTIONS [id number] SP [id number] AMER PROG TODAYS OPTIONS G [id number] Self [id number] AMER PROG TODAYS OPTIONS G [id number] Self [id number] [facility] [id number] SP [id number] [employer] [id number] Self [id number] [employer]. [id number] Nereyda f [id number] ANSI-Medicare Part B [id number] ANSI-Health Maintenance Organization ( O) [id number] ANSI-Medicare Part B [id number] ANSI-Health Maintenance Organization ( O) [id number] ANSI-Medicare Part B [id number] ANSI-Medicare Part B [id number] ANSI-Medicare Part B [id number] ANSI-Medicare Part B [id number] ANSI-Health Maintenance Organization ( O) [id number] ANSI-Health Maintenance Organization ( O) [id number] ANSI-Medicare Part B [id number] ANSI-Medicare Part B [id number] ANSI-Medicare Part B [id number] ANSI-Medicare Part B [id number] ANSI-Health Maintenance Organization ( O) [id number] ANSI-Medicare Part B [id number] ANSI-Medicare Part B [id number] [facility] ( O) [id number] ANSI-Medicare Part B [id number] [facility]-Health Maintenance Organization ( O) [id number] ANSI-Medicare Part B [id number] ANSI-Medicare Part B [id number] ANSI-Health Maintenance Organization ( O) [id number] ANSI-Medicare Part B [id number] TODAYS OPTIONS [id number] SP [id number] ANSI-Medicare Part B [id number] ANSI-Medicare Part B [id number] ANSI-Medicare Part B [id number] ANSI-Medicare Part B [id number] ANSI-Medicare Part B [id number] ANSI-Medicare Part B [id number] ANSI-Medicare Part B [id number] ANSI-Medicare Part B [id number] ANSI-Medicare Part B [id number] ANSI-Medicare Part B [id number] ANSI-Medicare Part B [id number] ANSI-Medicare Part B [id number] ANSI-Medicare Part B [id number] ANSI-Medicare Part B [id number] ANSI-Medicare Part B [id number] ANSI-Medicare Part B [id number] MEDICAID [id number] SP [id number] MEDICARE [id number] SP [id number] A [facility] [id number] SP [id number] TODAYS OPTIONS/[place]IZ[place] O [id number] S [id number] [place] PROGRESSIVE [id number] SP [id number] MEDICARE [id number] SP [id number] A MEDICARE COMPLETE [id number] SP [id number] [place] [id number] SP [id number] WELLCARE [id number] SP [id number] [place] [id number] SP [id number] MEDICARE [id number] SP [id number] WELLCARE O [id number] S [id number] ANSI-Health Maintenance Organization ( O) [id number] ANSI-Medicare Part B [id number] ANSI-Medicare Part B [id number] ANSI-Medicare Part B [id number] ANSI-Medicare Part B [id number] ANSI-Health Maintenance Organization ( O) [id number] Problems, Conditions, and Diagnoses Code Display Name Description Problem Type Effective Dates Data Source(s) H90.3 [id number] Sensorineural hearing loss (SNHL) of both ears Problem 12/26/2020 12:00:00 AM EDT eCW1 ([facility]) L85.3 [id number] Xerosis cutis Problem 09/27/2020 12:00:00 AM EDT eCW1 ([facility]) D47.2 [id number] 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) Problem 09/27/2020 12:00:00 AM EDT eCW1 ([facility]) G47.33 [id number] Obstructive sleep apnea Problem 09/09/2020 1 2:00:00 AM EDT eCW1 ([facility]) G47.33 [id number] MIHIR (obstructive sleep apnea) Problem 08/23/2020 12:00:00 AM EDT eCW1 ([facility]) L97.421 [id number] Skin ulcer of left heel, limited to break down of skin Problem 07/11/2020 12:00:00 AM EDT eCW1 ([facility]) I67.1 [id number] Internal carotid aneurysm Problem 07/11/2020 12:00:00 AM EDT eCW1 ([facility]) H04.123 [id number] Dry eyes, bilateral Problem 07/11/2020 12:00 :00 AM EDT eCW1 ([facility]) I63.9 [id number] Recurrent cerebrovascular accidents (CVAs ) Problem 07/11/2020 12:00:00 AM EDT eCW1 ([facility]) 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 infarction Problem 06/27/2020 12:00:00 AM EST NETSMART ([facility]) E11.51 Type 2 diabetes mellitus wit h diabetic peripheral angiopathy without gangrene Type 2 diabetes mellitus with diabetic p eripheral angiopathy without gangrene Problem 06/27/2020 12:00:00 AM EST NETSMART ([facility]) I70.201 Unspecified atherosclerosis of [place] arteries of extremities, right leg Unspecified atherosclerosis of [place] arteries of extr emities, right leg Problem 06/27/2020 12:00:00 AM EST NETSMART ([facility]) 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 Problem 06/27/2020 12:00:00 AM EST NETSMART ([facility]) 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 and stage 1 through stage 4 chronic kidney disease, or unspecified chronic kidney disease Hypertensive heart and chronic kidney di sease with heart failure and stage 1 through stage 4 chronic kidney disease, or unspecified chronic kidney disease Problem 06/27/2020 12:00:00 AM EST NETSMART ([facility]) I50.32 Chronic diastolic (congestive) heart sacha lure Chronic diastolic (congestive) heart failure Problem 06/27/2020 12:00:00 AM EST NETSMA RT ([facility]) 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 Problem 06/27/2020 12:00:00 AM EST NETSMART ([facility] ) N18.30 Chronic kidney disease, stage 3 unspecif ied Chronic kidney disease, stage 3 unspecified Problem 06/27/2020 12:00:00 AM EST NETSMART ([facility]) D63.1 Anemia in chronic kidney disease Anemia in chronic kid daniel disease Problem 06/27/2020 12:00:00 AM EST NETSMART ([facility] ) 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, unspecifie d site Gout due to renal impairment, unspecified site Problem 06/27/2020 12:00:00 AM EST NETS MART ([facility]) 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, not intractable, without status epilepticus Localization-related (focal) (partial) s ymptomatic epilepsy and epileptic syndromes with simple partial seizures, not intractable, without status epilepticus Problem 06/27/2020 12:00:00 AM EST NETSMART ([facility]) M47.816 Spondylosis without myelopathy or radicu lopathy, lumbar region Spondylosis without myelopathy or radiculopathy, lumbar region Problem 06/27/2020 12:00:00 AM EST NETSMART ([facility] ) M19.90 Unspecified osteoarthritis, unspecified site Unspecified osteoarthritis, unspecified site Problem 06/27/2020 12:00:00 AM EST NETSMART ([facility]) E53.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 Deficiency of other specified B group vitamins Problem 06/27/2020 12:00:00 AM EST NETSMA RT ([facility]) D50.9 Iron deficiency anemia, unspecified Iron deficie ncy anemia, unspecified Problem 06/27/2020 12:00:00 AM EST NETSMART ([facility]) G47.33 Obstructive sleep apnea (adult) (pediatr ic) Obstructive sleep apnea (adult) (pediatric) Problem 06/27/2020 12:00:00 AM EST NETSMART ([facility]) E66.9 Obesity, unspecified Obesity, unspecified Problem 06/27/2020 12:00:00 AM EST NETSMART ([facility] ) Z87.891 Personal history of nicotine dependence Personal history of nicotine dependence Problem 06/27/2020 12:00:00 AM EST NETSMART ([facility]) 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 Problem 06/27/2020 12:00:00 AM EST NETSMART ([facility]) Z79.82 longterm (current) use of aspirin 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 Problem 06/27/2020 12:00:00 AM EST NETSMART ([facility]) Z79.01 longterm (current) use of anticoagulant s computer terminal operator (current) use of anticoagulants Problem 06/27/2020 12:00:00 AM EST NETSMART ([facility]) Z68.33 Body mass index [BMI] 33.0-33.9, adult B rhys mass index [BMI] 33.0-33.9, adult Problem 06/27/2020 12:00:00 AM EST NETSMART ([facility]) Z91.81 History of falling History of falling Problem 12:00:00 AM EST NETSMART ([facility]) Z85.46 Personal history of malignant neoplasm o f prostate Personal history of malignant neoplasm of prostate Problem 06/27/2020 12:00:00 AM EST NE CHELSIEMART ([facility]) 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 Gerhard baljeet following cerebral infarction Problem 06/27/2020 12:00:00 AM EST NETSMART ([facility]) I69.398 Other sequelae of cerebral infarction Ot her sequelae of cerebral infarction Problem 06/23/2020 12:00:00 AM EST NETSMART ([facility]) I82.511 [id number] 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 Problem 03/14/2020 12:00:00 AM EST eCW1 ([facility]) L98.491 [id number] Superficial ulcer of skin Problem 02/16/2020 12:00:00 AM EDT eCW1 ([facility]) Surgeries/Procedures Procedure Description Date Indications Data Source(s) OFFICE OUTPATIENT VISIT 15 MINUTES 02/01/2021 12:00:00 AM EDT MEDENT ([facility], ) OFFICE OUTPATIENT NEW 30 MINUTES 10/20/2020 12:00:00 A M EDT MEDENT ([facility], ) Results ID Date Data Source [id number] 03/10/2021 12:08:00 PM EST [facility] Name Value Range Interpretation Code Description Data Nichole rce(s) Supporting Document(s) SARS coronavirus 2 RdRp gene [Presence] in Respiratory specimen by CHRISTI with probe detection Detected [facility] This lab was ordered by [facility] and reported by [facility]. ID Date Data Source [id number] 07/27/2020 06:49:00 PM EDT [facility] Name Value Range Interpretation Code Description Data Nichole rce(s) Supporting Document(s) SARS-CoV-2 IgG Serum <0.20 AU/mL <1.00 [facility] A result less than 1.00 AU/mL is conside red to be negative. PositiveIgG antibody results are often present later in the infectious process(from 7 days onward). Results will be reported to government agenciesas required.The [employer] DZ-Lite SARS-CoV-2 IgG CLIA assay has received EmergencyUse Authorization (EUA). We will continue to follow federal and staterequirements for COVID-19 reporting. This test was developed and itsperformance characteristics determined by [facility]. Ithas not been reviewed, cleared or approved [...] SARS-CoV-2 IgG:Chemiluminescent Immunoassay. ID Date Data Source [id number] 06/22/2020 06:37:00 AM EST [facility] Name Value Range Interpretation Code Description Data Nichole rce(s) Supporting Document(s) SARS coronavirus 2 RNA [Presence] in Res piratory specimen by CHRISTI with probe detection NEGATIVE [facility] This lab was ordered by [facility] a nd reported by [facility]. ID Date Data Source VITAMIN B12 LEVEL 06/17/2020 12:00:00 AM EST eCW1 ([facility]) Name Value Range Interpretation Code Description Data Nichole rce(s) Supporting Document(s) 6245 680-165 VITAMIN B12 LEVEL eCW1 ([facility]) ID Date Data Source PSA MONITOR (HX PROSTATE CA/ABNORMAL PSA) 06/17/2020 12:00:0 0 AM EST eCW1 ([facility]) Name Value Range Interpretation Code Description Data Nichole rce(s) Supporting Document(s) 18.70 < 4.00 PROSTATIC SPECIFIC AG MON ITOR eCW1 ([facility]) ID Date Data Source Comprehensive Metabolic Profile (CMP) 06/17/2020 12:00:00 AM EST eCW1 ([facility]) Name Value Range Interpretation Code Description Data Nichole rce(s) Supporting Document(s) 22 7-18 BLOOD UREA NITROGEN eCW1 ([facility]) 119 70-100 GLUCOSE, FASTING eCW1 ([facility]) 142 136-145 SODIUM LEVEL eCW1 ([facility] access hospital) > 60.0 >35 GLOMERULAR FILTRATION RATE eCW 1 ([facility]) 4.2 3.5-5.1 POTASSIUM SERUM eCW1 ([facility]) 0.97 0.70-1.30 CREATININE FOR GFR eCW1 ([facility]) 102 98-107 CHLORIDE LEVEL eCW1 ([facility]) 10 7-37 AST/SGOT eCW1 ([facility]) 9.5 8.8-10.2 CALCIUM LEVEL eCW1 ([facility]) 35 21-32 CARBON DIOXIDE LEVEL eCW1 ([facility]) 21 12-78 ALT/SGPT eCW1 ([facility]) 0.4 0.2-1.0 BILIRUBIN,TOTAL eCW1 ([facility]) 6.6 6.4-8.2 TOTAL PROTEIN eCW1 ([facility]) 67 45-117 ALKALINE PHOSPHATASE eCW1 ([facility]) 3.3 3.2-5.2 ALBUMIN eCW1 ([facility]) 1.0 ALBUMIN/GLOBULIN RATIO eCW1 ([facility]) ID Date Data Source URIC ACID 06/17/2020 12:00:00 AM EST eCW1 ([facility]) Name Value Range Interpretation Code Description Data Nichole rce(s) Supporting Document(s) 4.3 3.5-7.2 URIC ACID eCW1 ([facility]) ID Date Data Source MAGNESIUM LEVEL 06/17/2020 12:00:00 AM EST eCW1 ([facility]) Name Value Range Interpretation Code Description Data Nichole rce(s) Supporting Document(s) 1.9 1.8-2.4 MAGNESIUM LEVEL eCW1 ([facility]) ID Date Data Source [id number] 06/17/2020 12:00:00 AM EST eCW1 ([facility]) Name Value Range Interpretation Code Description Data Nichole rce(s) Supporting Document(s) Hemoglobin A1c/Hemoglobin.total in Blood 6.9 HEMOGLOBIN A1c eCW1 ([facility]) ID Date Data Source NT-PRO BNP 06/17/2020 12:00:00 AM EST eCW1 ([facility]) Name Value Range Interpretation Code Description Data Nichole rce(s) Supporting Document(s) 361 <450 NT-PRO BNP eCW1 ([facility]) Procedure Social History Code Duration Value Status Description Data Source(s ) Smoking 12/26/2020 12:00:00 AM EDT Former Smoker completed Former Smoker eCW1 ([facility]) Smoking 12/26/2020 12:00:00 AM EDT Former Smoker completed Former Smoker eCW1 ([facility]) Smoking 12/26/2020 12:00:00 AM EDT Former Smoker completed Former Smoker eCW1 ([facility]) Smoking 12/26/2020 12:00:00 AM EDT Former Smoker completed Former Smoker eCW1 ([facility]) Smoking 12/26/2020 12:00:00 AM EDT Former Smoker completed Former Smoker eCW1 ([facility]) Smoking 12/26/2020 12:00:00 AM EDT Former Smoker completed Former Smoker eCW1 ([facility]) Smoking 12/26/2020 12:00:00 AM EDT Former Smoker completed Former Smoker eCW1 ([facility]) Smoking 12/26/2020 12:00:00 AM EDT Former Smoker completed Former Smoker eCW1 ([facility]) Smoking 12/26/2020 12:00:00 AM EDT Former Smoker completed Former Smoker eCW1 ([facility]) Smoking 12/26/2020 12:00:00 AM EDT Former Smoker completed Former Smoker eCW1 ([facility]) Smoking 12/26/2020 12:00:00 AM EDT Former Smoker completed Former Smoker eCW1 ([facility]) Smoking 12/26/2020 12:00:00 AM EDT Former Smoker completed Former Smoker eCW1 ([facility]) Smoking 12/26/2020 12:00:00 AM EDT Former Smoker completed Former Smoker eCW1 ([facility]) Smoking 12/26/2020 12:00:00 AM EDT Former Smoker completed Former Smoker eCW1 ([facility]) Smoking 12/26/2020 12:00:00 AM EDT Former Smoker completed Former Smoker eCW1 ([facility]) Smoking 09/27/2020 12:00:00 AM EDT Former Smoker completed Former Smoker eCW1 ([facility]) Smoking 09/27/2020 12:00:00 AM EDT Former Smoker completed Former Smoker eCW1 ([facility]) Smoking 09/27/2020 12:00:00 AM EDT Former Smoker completed Former Smoker eCW1 ([facility]) Smoking 09/27/2020 12:00:00 AM EDT Former Smoker completed Former Smoker eCW1 ([facility]) Smoking 09/27/2020 12:00:00 AM EDT Former Smoker completed Former Smoker eCW1 ([facility]) Smoking 09/27/2020 12:00:00 AM EDT Former Smoker completed Former Smoker eCW1 ([facility]) Smoking 09/27/2020 12:00:00 AM EDT Former Smoker completed Former Smoker eCW1 ([facility]) Smoking 09/27/2020 12:00:00 AM EDT Former Smoker completed Former Smoker eCW1 ([facility]) Smoking 09/09/2020 12:00:00 AM EDT Former Smoker completed Former Smoker eCW1 ([facility]) Smoking 09/09/2020 12:00:00 AM EDT Former Smoker completed Former Smoker eCW1 ([facility]) Smoking 09/09/2020 12:00:00 AM EDT Former Smoker completed Former Smoker eCW1 ([facility]) Smoking 08/23/2020 12:00:00 AM EDT Former Smoker completed Former Smoker eCW1 ([facility]) Smoking 08/23/2020 12:00:00 AM EDT Former Smoker completed Former Smoker eCW1 ([facility]) Smoking 08/23/2020 12:00:00 AM EDT Former Smoker completed Former Smoker eCW1 ([facility]) Smoking 08/23/2020 12:00:00 AM EDT Former Smoker completed Former Smoker eCW1 ([facility]) Smoking 08/23/2020 12:00:00 AM EDT Former Smoker completed Former Smoker eCW1 ([facility]) Smoking 08/23/2020 12:00:00 AM EDT Former Smoker completed Former Smoker eCW1 ([facility]) Smoking 07/11/2020 12:00:00 AM EDT Former Smoker completed Former Smoker eCW1 ([facility]) Smoking 07/11/2020 12:00:00 AM EDT Former Smoker completed Former Smoker eCW1 ([facility]) Smoking 06/30/2020 12:00:00 AM EST Former Smoker completed Former Smoker eCW1 ([facility]) Smoking 06/30/2020 12:00:00 AM EST Former Smoker completed Former Smoker eCW1 ([facility]) Smoking 06/30/2020 12:00:00 AM EST Former Smoker completed Former Smoker eCW1 ([facility]) Smoking 06/30/2020 12:00:00 AM EST Former Smoker completed Former Smoker eCW1 ([facility]) Smoking 06/30/2020 12:00:00 AM EST Former Smoker completed Former Smoker eCW1 ([facility]) Smoking 06/14/2020 12:00:00 AM EST Former Smoker completed Former Smoker eCW1 ([facility]) Smoking 06/14/2020 12:00:00 AM EST Former Smoker completed Former Smoker eCW1 ([facility]) Smoking 06/14/2020 12:00:00 AM EST Former Smoker completed Former Smoker eCW1 ([facility]) Smoking 06/14/2020 12:00:00 AM EST Former Smoker completed Former Smoker eCW1 ([facility]) Smoking 06/14/2020 12:00:00 AM EST Former Smoker completed Former Smoker eCW1 ([facility]) Smoking 06/14/2020 12:00:00 AM EST Former Smoker completed Former Smoker eCW1 ([facility]) Smoking 06/14/2020 12:00:00 AM EST Former Smoker [...] by Pulse oximetry 94 % 94 % [place] ([facility]) Body height 69 [in_i] 69 [in_i] [place] ([facility]) 5'9" Body weight 255.00 [lb_av] 255.00 [lb_av] [facility] ([facility]) Body weight 115.668 kg 115.668 kg [place] ([facility]) Body mass index (BMI) [Ratio] 37.7 kg/m2 37.7 k g/m2 [place] ([facility]) Body surface area Derived from formula 2.29 m2 2.29 m2 [place] ([facility]) [place] body weight 160 [lb_av] 160 [lb_av] [facility] ([facility]) Systolic blood pressure 130 mm[Hg] 130 mm[Hg] [facility] ([facility]) Diastolic blood pressure 70 mm[Hg] 70 mm[Hg] [place] ([facility]) Heart rate 80 /min 80 /min [place] ([facility]) Body temperature 97.8 [degF] 97.8 [degF] W1 ( [facility]) Body weight 253.6 [lb_av] 253.6 [lb_av] W1 ([facility]) Body weight 115.03 kg 115.03 kg [facility] ([facility]) Body height 73 [in_i] 73 [in_i] W1 ([facility]) Body mass index (BMI) [Ratio] 33.45 kg/m2 33.45 kg/m2 [facility] ([facility]) Heart rate 106 /min 106 /min eCW1 ([facility]) Respiratory rate 18 /min 18 /min eCW1 ([facility]) Diastolic blood pressure 74 mm[Hg] 74 mm[Hg] eCW1 ([facility]) Systolic blood pressure 128 mm[Hg] 128 mm[Hg] e CW1 ([facility]) Diastolic blood pressure 74 mm[Hg] 74 mm[Hg] eCW1 ([facility]) Body weight 253.6 [lb_av] 253.6 [lb_av] eCW1 ([facility]) Body weight 115.03 kg 115.03 kg eCW1 ([facility]) Body height 73 [in_i] 73 [in_i] eCW1 ([facility]) Body mass index (BMI) [Ratio] 33.45 kg/m2 33.45 kg/m2 eCW1 ([facility]) Heart rate 106 /min 106 /min eCW1 ([facility]) Respiratory rate 18 /min 18 /min eCW1 ([facility]) Body temperature 97.8 [degF] 97.8 [degF] eCW1 ( [facility]) Systolic blood pressure 128 mm[Hg] 128 mm[Hg] e CW1 ([facility]) [place] body weight 160 [lb_av] 160 [lb_av] MEDEN T ([facility], ) Body mass index (BMI) [Ratio] 37.2 kg/m2 37.2 k g/m2 MEDENT ([facility], ) Heart rate 114 /min 114 /min MEDENT ([facility], ) Diastolic blood pressure 70 mm[Hg] 70 mm[Hg] MEDENT ([facility], ) Systolic blood pressure 130 mm[Hg] 130 mm[Hg] M EDJARROD ([facility], ) Oxygen saturation in Arterial blood by Pulse oximetry 94 % 94 % MEDJARROD ([facility], ) Body height 69 [in_i] 69 [in_i] MEDJARROD ([facility], ) 5'9" Body weight 252.00 [lb_av] 252.00 [lb_av] MEDEN T ([facility]) Oxygen saturation in Arterial blood by Pulse oximetry 94 % 94 % [place] ([facility]) Body height 69 [in_i] 69 [in_i] [place] ([facility]) 5'9" Body weight 252.00 [lb_av] 252.00 [lb_av] MEDEN T ([facility]) Body mass index (BMI) [Ratio] 37.2 kg/m2 37.2 k g/m2 [place] ([facility]) [place] body weight 160 [lb_av] 160 [lb_av] MEDEN T ([facility]) Body weight 114.307 kg 114.307 kg [place] ([facility]) Body surface area Derived from formula 2.28 m2 2.28 m2 [place] ([facility]) Body weight 114.307 kg 114.307 kg [place] ([facility]) Body surface area Derived from formula 2.28 m2 2.28 m2 [place] ([facility]) Body weight 254 [lb_av] 254 [lb_av] eCW1 ([facility]) Body height 73 [in_i] 73 [in_i] eCW1 ([facility]) Body mass index (BMI) [Ratio] 33.51 kg/m2 33.51 kg/m2 eCW1 ([facility]) Heart rate 87 /min 87 /min eCW1 ([facility]) Respiratory rate 18 /min 18 /min eCW1 ([facility]) Systolic blood pressure 134 mm[Hg] 134 mm[Hg] e CW1 ([facility]) Diastolic blood pressure 84 mm[Hg] 84 mm[Hg] eCW1 ([facility]) Body weight 253 [lb_av] 253 [lb_av] eCW1 ([facility]) Body height 73 [in_i] 73 [in_i] eCW1 ([facility]) Heart rate 107 /min 107 /min eCW1 ([facility]) Respiratory rate 18 /min 18 /min eCW1 ([facility]) Body mass index (BMI) [Ratio] 33.38 kg/m2 33.38 kg/m2 eCW1 ([facility]) Body temperature 97.4 [degF] 97.4 [degF] eCW1 ( [facility]) Diastolic blood pressure 72 mm[Hg] 72 mm[Hg] eCW1 ([facility]) Systolic blood pressure 114 mm[Hg] 114 mm[Hg] e CW1 ([facility]) Body weight 255.8 [lb_av] 255.8 [lb_av] eCW1 ([facility]) Body height 73 [in_i] 73 [in_i] eCW1 ([facility]) Body mass index (BMI) [Ratio] 33.75 kg/m2 33.75 kg/m2 eCW1 ([facility]) Heart rate 107 /min 107 /min eCW1 ([facility]) Respiratory rate 18 /min 18 /min eCW1 ([facility]) Body temperature 98 [degF] 98 [degF] eCW1 ([facility]) Systolic blood pressure 112 mm[Hg] 112 mm[Hg] e CW1 ([facility]) Diastolic blood pressure 70 mm[Hg] 70 mm[Hg] eCW1 ([facility]) Body weight 249.0 [lb_av] 249.0 [lb_av] eCW1 ([facility]) Body height 73 [in_i] 73 [in_i] eCW1 ([facility]) Body mass index (BMI) [Ratio] 32.85 kg/m2 32.85 kg/m2 eCW1 ([facility]) Heart rate 101 /min 101 /min eCW1 ([facility]) Respiratory rate 18 /min 18 /min eCW1 ([facility]) Body temperature 97.6 [degF] 97.6 [degF] eCW1 ( [facility]) Systolic blood pressure 122 mm[Hg] 122 mm[Hg] e CW1 ([facility]) Diastolic blood pressure 78 mm[Hg] 78 mm[Hg] eCW1 ([facility]) Body weight 243.12 [lb_av] 243.12 [lb_av] eCW1 ([facility]) Body height 73 [in_i] 73 [in_i] eCW1 ([facility]) Body mass index (BMI) [Ratio] 32.07 kg/m2 32.07 kg/m2 eCW1 ([facility]) Heart rate 102 /min 102 /min eCW1 ([facility]) Respiratory rate 18 /min 18 /min eCW1 ([facility]) Body temperature 97.7 [degF] 97.7 [degF] eCW1 ( [facility]) Systolic blood pressure 128 mm[Hg] 128 mm[Hg] e CW1 ([facility]) Diastolic blood pressure 80 mm[Hg] 80 mm[Hg] eCW1 ([facility]) Heart rate 118 /min 118 /min eCW1 ([facility]) Body weight 255 [lb_av] 255 [lb_av] eCW1 ([facility]) Body height 73 [in_i] 73 [in_i] eCW1 ([facility]) Systolic blood pressure 138 mm[Hg] 138 mm[Hg] e CW1 ([facility]) Body mass index (BMI) [Ratio] 33.64 kg/m2 33.64 kg/m2 eCW1 ([facility]) Respiratory rate 18 /min 18 /min eCW1 ([facility]) Body temperature 97.2 [degF] 97.2 [degF] eCW1 ( [facility]) Diastolic blood pressure 80 mm[Hg] 80 mm[Hg] eCW1 ([facility]) Body weight 254 [lb_av] 254 [lb_av] eCW1 ([facility]) Body height 73 [in_i] 73 [in_i] eCW1 ([facility]) Body mass index (BMI) [Ratio] 33.51 kg/m2 33.51 kg/m2 eCW1 ([facility]) Heart rate 119 /min 119 /min eCW1 ([facility]) Respiratory rate 20 /min 20 /min eCW1 ([facility]) Body temperature 97.1 [degF] 97.1 [degF] eCW1 ( [facility]) Systolic blood pressure 120 mm[Hg] 120 mm[Hg] e CW1 ([facility]) Diastolic blood pressure 80 mm[Hg] 80 mm[Hg] eCW1 ([facility]) Body weight 259.4 [lb_av] 259.4 [lb_av] eCW1 ([facility]) Body temperature 96.8 [degF] 96.8 [degF] eCW1 ( [facility]) Systolic blood pressure 138 mm[Hg] 138 mm[Hg] e CW1 ([facility]) Diastolic blood pressure 82 mm[Hg] 82 mm[Hg] eCW1 ([facility]) Body height 73 [in_i] 73 [in_i] eCW1 ([facility]) Body mass index (BMI) [Ratio] 34.22 kg/m2 34.22 kg/m2 eCW1 ([facility]) Heart rate 95 /min 95 /min eCW1 ([facility]) Respiratory rate 18 /min 18 /min eCW1 ([facility]) Body weight 259.4 [lb_av] 259.4 [lb_av] eCW1 ([facility]) Body height 73 [in_i] 73 [in_i] eCW1 ([facility]) Body mass index (BMI) [Ratio] 34.22 kg/m2 34.22 kg/m2 eCW1 ([facility]) Heart rate 95 /min 95 /min eCW1 ([facility]) Respiratory rate 18 /min 18 /min eCW1 ([facility]) Body temperature 96.8 [degF] 96.8 [degF] eCW1 ( [facility]) Systolic blood pressure 138 mm[Hg] 138 mm[Hg] e CW1 ([facility]) Diastolic blood pressure 82 mm[Hg] 82 mm[Hg] eCW1 ([facility]) Body temperature 97.7 [degF] 97.7 [degF] eCW1 ( [facility]) Systolic blood pressure 132 mm[Hg] 132 mm[Hg] e CW1 ([facility]) Diastolic blood pressure 88 mm[Hg] 88 mm[Hg] eCW1 ([facility]) Body weight 264 [lb_av] 264 [lb_av] eCW1 ([facility]) Body height 73 [in_i] 73 [in_i] eCW1 ([facility]) Body mass index (BMI) [Ratio] 34.83 kg/m2 34.83 kg/m2 eCW1 ([facility]) Heart rate 96 /min 96 /min eCW1 ([facility]) Respiratory rate 22 /min 22 /min eCW1 ([facility]) Body weight 260 [lb_av] 260 [lb_av] eCW1 ([facility]) Body height 73 [in_i] 73 [in_i] eCW1 ([facility]) Body mass index (BMI) [Ratio] 34.30 kg/m2 34.30 kg/m2 eCW1 ([facility]) Heart rate 91 /min 91 /min eCW1 ([facility]) Respiratory rate 18 /min 18 /min eCW1 ([facility]) Body temperature 97.4 [degF] 97.4 [degF] eCW1 ( [facility]) Systolic blood pressure 138 mm[Hg] 138 mm[Hg] e CW1 ([facility]) Diastolic blood pressure 80 mm[Hg] 80 mm[Hg] eCW1 ([facility]) Body mass index (BMI) [Ratio] 32.98 kg/m2 32.98 kg/m2 eCW1 ([facility]) Heart rate 91 /min 91 /min eCW1 ([facility]) Diastolic blood pressure 80 mm[Hg] 80 mm[Hg] eCW1 ([facility]) Body weight 250 [lb_av] 250 [lb_av] eCW1 ([facility]) Body height 73 [in_i] 73 [in_i] eCW1 ([facility]) Respiratory rate 18 /min 18 /min eCW1 ([facility]) Body temperature 97.4 [degF] 97.4 [degF] eCW1 ( [facility]) Systolic blood pressure 138 mm[Hg] 138 mm[Hg] e CW1 ([facility]) Patient Treatment Plan of Care Planned Activity Planned Date Details Description Data Source (s) CPAP mask 03/14/2021 12:00:00 AM EST e CW1 ([facility]) FreeStyle Ghulam 14 Day Sensor - 02/13/2021 12:00:00 AM EDT eCW1 ([facility]) FreeStyle Ghulam 14 Day Sensor - 02/13/2021 12:00:00 AM EDT eCW1 ([facility]) FreeStyle Ghulam 14 Day Sensor - 02/13/2021 12:00:00 AM EDT eCW1 ([facility]) FreeStyle Ghulam 14 Day Sensor - 02/13/2021 12:00:00 AM EDT eCW1 ([facility]) FreeStyle Ghulam 14 Day Sensor - 02/13/2021 12:00:00 AM EDT eCW1 ([facility]) ammonium lactate 120 MG/ML Topical Cream 09/27/2020 12:00:00 AM EDT eCW1 ([facility]) ammonium lactate 120 MG/ML Topical Cream 09/27/2020 12:00:00 AM EDT eCW1 ([facility]) ammonium lactate 120 MG/ML Topical Cream 09/27/2020 12:00:00 AM EDT eCW1 ([facility]) ammonium lactate 120 MG/ML Topical Cream 09/27/2020 12:00:00 AM EDT eCW1 ([facility]) ammonium lactate 120 MG/ML Topical Cream 09/27/2020 12:00:00 AM EDT eCW1 ([facility]) ammonium lactate 120 MG/ML Topical Cream 09/27/2020 12:00:00 AM EDT eCW1 ([facility]) ammonium lactate 120 MG/ML Topical Cream 09/27/2020 12:00:00 AM EDT eCW1 ([facility]) ammonium lactate 120 MG/ML Topical Cream 09/27/2020 12:00:00 AM EDT eCW1 ([facility]) CPAP mask 09/12/2020 12:00:00 AM EDT e CW1 ([facility]) CPAP mask 09/12/2020 12:00:00 AM EDT e CW1 ([facility]) CPAP mask 09/12/2020 12:00:00 AM EDT e CW1 ([facility]) CPAP mask 09/12/2020 12:00:00 AM EDT e CW1 ([facility]) CPAP mask 09/12/2020 12:00:00 AM EDT e CW1 ([facility]) CPAP mask 09/12/2020 12:00:00 AM EDT e CW1 ([facility]) CPAP mask 09/12/2020 12:00:00 AM EDT e CW1 ([facility]) CPAP mask 09/12/2020 12:00:00 AM EDT e CW1 ([facility]) CPAP mask 09/12/2020 12:00:00 AM EDT e CW1 ([facility]) CPAP mask 09/12/2020 12:00:00 AM EDT e CW1 ([facility]) CPAP mask 09/12/2020 12:00:00 AM EDT e CW1 ([facility]) CPAP mask 09/12/2020 12:00:00 AM EDT e CW1 ([facility]) CPAP mask 09/12/2020 12:00:00 AM EDT e CW1 ([facility]) CPAP Machine 09/12/2020 12:00:00 AM EDT e CW1 ([facility]) CPAP Machine 09/12/2020 12:00:00 AM EDT e CW1 ([facility]) CPAP mask 09/12/2020 12:00:00 AM EDT e CW1 ([facility]) CPAP Machine 09/12/2020 12:00:00 AM EDT e CW1 ([facility]) CPAP mask 09/12/2020 12:00:00 AM EDT e CW1 ([facility]) Polyethylene Glycol 400 4 MG/ML / Propyl meliton glycol 3 MG/ML Ophthalmic Solution [Systane] 06/30/2020 12:00:00 AM EST eCW1 ([facility]) Optifoam Gentle Foam Dressings 06/30/2020 12:00:00 AM EST eCW1 ([facility]) Polyethylene Glycol 400 4 MG/ML / Propyl meliton glycol 3 MG/ML Ophthalmic Solution [Systane] 06/30/2020 12:00:00 AM EST eCW1 ([facility]) Optifoam Gentle Foam Dressings 06/30/2020 12:00:00 AM EST eCW1 ([facility]) Polyethylene Glycol 400 4 MG/ML / Propyl meliton glycol 3 MG/ML Ophthalmic Solution [Systane] 06/30/2020 12:00:00 AM EST eCW1 ([facility]) Optifoam Gentle Foam Dressings 06/30/2020 12:00:00 AM EST eCW1 ([facility]) Polyethylene Glycol 400 4 MG/ML / Propyl meliton glycol 3 MG/ML Ophthalmic Solution [Systane] 06/30/2020 12:00:00 AM EST eCW1 ([facility]) Optifoam Gentle Foam Dressings 06/30/2020 12:00:00 AM EST eCW1 ([facility]) Polyethylene Glycol 400 4 MG/ML / Propyl meliton glycol 3 MG/ML Ophthalmic Solution [Systane] 06/30/2020 12:00:00 AM EST eCW1 ([facility]) Optifoam Gentle Foam Dressings 06/30/2020 12:00:00 AM EST eCW1 ([facility]) Polyethylene Glycol 400 4 MG/ML / Propyl meliton glycol 3 MG/ML Ophthalmic Solution [Systane] 06/30/2020 12:00:00 AM EST eCW1 ([facility]) Polyethylene Glycol 400 4 MG/ML / Propyl meliton glycol 3 MG/ML Ophthalmic Solution [Systane] 06/30/2020 12:00:00 AM EST eCW1 ([facility]) COMPRESSION STOCKINGS 15-20 mmHg 06/27/2020 12:00:00 AM EST eCW1 ([facility]) COMPRESSION STOCKINGS 15-20 mmHg 06/27/2020 12:00:00 AM EST eCW1 ([facility]) COMPRESSION STOCKINGS 15-20 mmHg 06/27/2020 12:00:00 AM EST eCW1 ([facility]) Diclofenac Sodium 1 % 06/27/2020 12:00:00 AM EST NETSMART ([facility]) Ferrous Sulfate 325 (65 Fe) MG 06/27/2020 12:00:00 AM EST [facility] MetFORMIN HCl 500 MG 06/27/2020 12:00:00 AM EST NETSMART ([facility]) Glimepiride 4 MG 06/27/2020 12:00:00 AM EST [facility]SMART ([facility]) Vitamin D3 1000 UNIT 06/27/2020 12:00:00 AM EST [facility] Tresiba FlexTouch 200 UNIT/ML 06/27/2020 12:00:00 AM EST NETSMART ([facility]) Fluticasone Propionate 50 MCG/ACT 06/27/2020 12:00:00 AM EST NETSMART ([facility]) Torsemide 20 MG 06/27/2020 12:00:00 AM EST NETSMART ([facility]) Eliquis 5 MG 06/27/2020 12:00:00 AM EST N ETSMART ([facility]) Potassium Chloride ER 10 MEQ 06/27/2020 12:00:00 AM EST [facility]SMART ([facility]) Vitamin B12 1000 MCG 06/27/2020 12:00:00 AM EST [facility]SMART ([facility]) Aspirin EC Adult Low Strength 81 MG 06/27/2020 12:00:00 AM EST [facility]SMART ([facility]) Omeprazole 40 MG 06/27/2020 12:00:00 AM EST [facility]SMART ([facility]) Rosuvastatin Calcium 20 MG 06/27/2020 12:00:00 AM EST [facility]SMART ([facility]) Allopurinol 300 MG 06/27/2020 12:00:00 AM EST [facility]SMART ([facility]) [place] 31G X 5 MM 05/13/2020 12:00:00 AM EST eCW1 ([facility]) [place] 31G X 5 MM 05/13/2020 12:00:00 AM EST eCW1 ([facility]) [place] 31G X 5 MM 05/13/2020 12:00:00 AM EST eCW1 ([facility]) [place] 31G X 5 MM 05/13/2020 12:00:00 AM EST eCW1 ([facility]) [place] 31G X 5 MM 05/13/2020 12:00:00 AM EST eCW1 ([facility]) [place] 31G X 6 MM 05/13/2020 12:00:00 AM EST eCW1 ([facility]) [place] 31G X 6 MM 05/13/2020 12:00:00 AM EST eCW1 ([facility]) [place] 31G X 6 MM 05/13/2020 12:00:00 AM EST eCW1 ([facility]) [place] 31G X 5 MM 05/13/2020 12:00:00 AM EST eCW1 ([facility]) [place] 31G X 6 MM 05/13/2020 12:00:00 AM EST eCW1 ([facility]) [place] 31G X 5 MM 05/13/2020 12:00:00 AM EST eCW1 ([facility]) [place] 31G X 6 MM 05/13/2020 12:00:00 AM EST eCW1 ([facility]) [place] 31G X 6 MM 05/13/2020 12:00:00 AM EST eCW1 ([facility]) [place] 31G X 6 MM 05/13/2020 12:00:00 AM EST eCW1 ([facility]) [place] 05/13/2020 12:00:00 AM EST e CW1 ([facility]) [place] 31G X 6 MM 05/13/2020 12:00:00 AM EST eCW1 ([facility]) Tresiba FlexTouch 200 UNIT/ML 05/13/2020 12:00:00 AM EST eCW1 ([facility]) Tresiba FlexTouch 200 UNIT/ML 05/13/2020 12:00:00 AM EST eCW1 ([facility]) Tresiba FlexTouch 200 UNIT/ML 05/13/2020 12:00:00 AM EST eCW1 ([facility]) [place] 05/13/2020 12:00:00 AM EST e CW1 ([facility]) Tresiba FlexTouch 200 UNIT/ML 05/13/2020 12:00:00 AM EST eCW1 ([facility]) [place] 05/13/2020 12:00:00 AM EST e CW1 ([facility]) Tresiba FlexTouch 200 UNIT/ML 05/13/2020 12:00:00 AM EST eCW1 ([facility]) [place] 05/13/2020 12:00:00 AM EST e CW1 ([facility]) Tresiba FlexTouch 200 UNIT/ML 05/13/2020 12:00:00 AM EST eCW1 ([facility]) [place] 05/13/2020 12:00:00 AM EST e CW1 ([facility]) Tresiba FlexTouch 200 UNIT/ML 05/13/2020 12:00:00 AM EST eCW1 ([facility]) Tresiba FlexTouch 200 UNIT/ML 05/13/2020 12:00:00 AM EST eCW1 ([facility]) [place] 05/13/2020 12:00:00 AM EST e CW1 ([facility] [...]
[2021-03-19] MEDS ORDERED: HOME MED LIST COMPLETE! XX SCH (19:05)
--- NOTE | 2021-03-19 19:12 | HPEPDOC ---
General Date of Admission 03/19/2020 Date of Service: Mar 19, 2021 Chief Complaint The patient is a 86-year-old male admitted with a reason for visit of Hyperglycemia. Source: Patient History of Present Illness Mr. Chino is an 86-year-old male with diabetes mellitus type 2 and recent Covid infection who presents with hyperglycemia and found to have DARY. Patient was recently admitted from March 12 to March 16 for Covid pneumonia. Patient could not be weaned off of oxygen and was discharged home with 2 L of oxygen continuously and steroid taper. While at home, he denied any fever or chills, chest pain, dyspnea, abdominal pain, diarrhea, or dysuria. He reports good oral intake. He felt well, but his blood sugar continuously increase. While at home, his blood sugar was between 240 to greater than 500. He came into the ED for evaluation. While here, he was afebrile and blood pressure was stable. Blood glucose was 418. Patient was given 5 units of regular insulin. Otherwise, patient was found to have DARY. Baseline creatinine around 0.8-1. Creatinine on admission was 1.7. Admission was requested. Patient will be admitted for hyperglycemia secondary to steroids and DARY. Home Medications Scheduled Apixaban (Eliquis) 5 Mg Tablet, 5 MG PO BID, (Reported) Aspirin (Aspirin EC) 81 Mg Tablet.dr, 81 MG PO DAILY, (Reported) Cholecalciferol (Vitamin D3) (Vitamin D3) 1,000 Unit Tablet, 5,000 UNITS PO QHS, (Reported) Cyanocobalamin (Vitamin B-12) (Vitamin B-12) 1,000 Mcg Tablet, 1,000 MCG PO DAILY, (Reported) Ferrous Sulfate (Ferrous Sulfate) 325 Mg Tablet, 325 MG PO QHS, (Reported) Glimepiride (Glimepiride) 4 Mg Tablet, 4 MG PO BID, (Reported) Insulin Degludec (Tresiba Flextouch U-200) 200 Unit/1 Ml Insuln.pen, 10 UNIT SQ QHS, (Reported) Metformin HCl (Metformin HCl ER) 500 Mg Tab.er.24h, 500 MG PO BID, (Reported) Omeprazole (Omeprazole) 40 Mg Capsule.dr, 40 MG PO QHS, (Reported) Potassium Chloride (Potassium Chloride) 10 Meq Tab.er.prt, 10 MEQ PO BID, (Reported) Prednisone (Prednisone) 10 Mg Tablet, 40 MG PO TAPER Take 4 tabs daily x 3 days, then 3 tabs daily x 3 days, then 2 tabs daily x 3 days, then 1 tab daily x 3 days and stop Rosuvastatin Calcium (Rosuvastatin Calcium) 20 Mg Tablet, 20 MG PO QHS, (Reported) Torsemide (Torsemide) 20 Mg Tablet, 30 MG PO DAILY, (Reported) allopurinoL (allopurinoL) 300 Mg Tablet, 300 MG PO DAILY, (Reported) Scheduled PRN Albuterol Sulfate (Proair Hfa) 8.5 Gm Hfa.aer.ad, 2 PUFF INH Q4HP PRN for WHEEZING Diclofenac Sodium (Diclofenac Sodium) 1% 100GM Gel..gram., 1 APPLIC TOP QID PRN for PAIN LEVEL 1-4, (Reported) APPLY TO RIGHT KNEE AND RIGHT INDEX FINGER Fluticasone Propionate (Fluticasone Propionate) 16 Gm [place].susp, 2 SPRAY NARES DAILY PRN for ALLERGIES, (Reported) Allergies Coded Allergies: No Known Allergies (Verified , 10/10/04) Past Medical History Medical History 1. Seizures 2. CVA 3. Heart failure with preserved ejection fraction 4. Atrial fibrillation 5. Hyperlipidemia 6. Hypertension 7. MIHIR not on CPAP 8. GERD 9. Prostate cancer status post radiation 10. Diabetes mellitus type 2 11. Gout 12. Covid pneumonia in February 2021 Surgical History 1. Tonsillectomy 2. TURP Family History Father: History of heart disease Mother: History of cancer Social History * Smoker: former Smoker Alcohol: Denies Drugs: denies A-FIB/CHADSVASC A-FIB History Current/History of A-Fib/PAF?: Yes Current PO Anticoag Therapy: Yes Review of Systems Constitutional: Denies: Chills, Fever Eyes: Denies: Vision change ENT: Denies: Sore Throat Skin: Denies: Rash Pulmonary: Denies: Dyspnea Cardiovascular: Denies: Chest Pain Gastrointestinal: Denies: Abdominal Pain Genitourinary: Denies: Dysuria Hematologic: Denies: Bruising Neurological: Denies: Numbness Psych: Denies: Anxiety, Depression Physical Examination General Exam: Positive: Alert, Cooperative Eye Exam: Positive: EOMI; Negative: Sclera icteric ENT Exam: Positive: Atraumatic Neck Exam: Positive: Supple Chest Exam: Positive: Clear to auscultation Heart Exam: Positive: Rate Normal, Regular Rhythm Abdomen Exam: Positive: Normal bowel sounds, Soft; Negative: Tenderness Extremity Exam: Positive: Edema (Mild pitting edema bilaterally) Neuro Exam: Positive: Normal Speech, Cranial Nerves 3-12 NL Psych Exam: Positive: Mental status NL, Mood NL Vital Signs Vital Signs Date Time Temp Pulse Resp B/P (MAP) Pulse Ox O2 Delivery O2 Flow Rate FiO2 03/19/21 18:15 97.4 81 22 161/79 (106) 92 03/19/21 15:50 Nasal Cannula 2.0 Laboratory Data Labs 24H Laboratory Tests 2 03/19/21 15:49: Immature Granulocyte % (Auto) 0.7, Neutrophils (%) (Auto) 90.6H, Lymphocytes (%) (Auto) 4.2L, Monocytes (%) (Auto) 4.4, Eosinophils (%) (Auto) 0.0, Basophils (%) (Auto) 0.1, Neutrophils # (Auto) 9.6H, Lymphocytes # (Auto) 0.5L, Monocytes # (Auto) 0.5, Eosinophils # (Auto) 0.0, Basophils # (Auto) 0.0, Nucleated Red Blood Cells % (auto) 0.0, Anion Gap 10, Glomerular Filtration Rate 40.7, Calcium Level 8.6L, Total Bilirubin 0.4, Direct Bilirubin 0.2, Aspartate Amino Transf (AST/SGOT) 14, Alanine Aminotransferase (ALT/SGPT) 36, Alkaline Phosphatase 80, Total Protein 6.5, Albumin 2.6L, Albumin/Globulin Ratio 0.7, Thyroid Stimulating Hormone (TSH) 0.564 03/19/21 17:18: Bedside Glucose (Misc Panel) 404H CBC/BMP Laboratory Tests 03/19/21 15:49 Assessment/Plan Mr. Chino is an 86-year-old male with diabetes mellitus type 2 and recent Covid infection who presents with hyperglycemia and found to have DARY. Patient most likely has hyperglycemia induced by steroids. Will continue with the taper and work on glycemic control with sliding scale insulin. Otherwise, due to hyperglycemia patient may have increased urinary output. This plus the torsemide may have caused his DARY. Will hold nephrotoxic agents (torsemide) and provide supportive care. Plan / VTE VTE Prophylaxis Ordered?: Yes Plan Plan 1. Hyperglycemia induced by steroids We cannot abruptly discontinue steroids. Continue with taper Control blood sugar with sliding scale insulin and carbohydrate consistent diet 2. DARY On admission, creatinine was 1.7 Patient's baseline creatinine is between 0.8-1 Possibly due to increased urine output from hyperglycemia and torsemide Hold torsemide Gentle IVF 3. Recent Covid infection Patient is still hypoxic It has not been 20 days since infection started Patient will be put on droplet and contact precautions 4. Gout Continue allopurinol 5. Paroxysmal atrial fibrillation Continue apixaban 6. Heart failure with preserved ejection fraction EF 50 to 55% Hold torsemide due to DARY 7. Hyperlipidemia Continue rosuvastatin 8. DVT prophylaxis Continue apixaban Disposition: Pending improvement in renal function and glycemic control. We will try to wean steroids a little faster. DENIS LEIJA DO Mar 19, 2021 19:12
--- NOTE | 2021-03-19 19:51 | REP ---
INDICATION: DARY, kidney stone/obstructive uropathy? COMPARISON: None TECHNIQUE: Real time sahni scale ultrasound examination using curved array transducer. FINDINGS: Kidneys are normal in reniform shape and demonstrate increased central sinus fat with cortical thinning and mild asymmetric atrophy (right greater than left). No hydronephrosis, nephrolithiasis, cystic or renal mass lesion. Right kidney measures 9.4 x 4.5 x 5.4 cm. Left kidney measures 11.2 x 4.3 x 5.9 cm. Bladder is grossly unremarkable. IMPRESSION: Chronic medical renal disease and right renal atrophy. No hydronephrosis. <Electronically signed by Angel Garcia > 03/19/211946
[2021-03-19 20:25] LABS: INR 1.11; PARTIAL THROMBOPLASTIN TIME 29.9 SECONDS (25.9-37.0); PROTHROMBIN TIME 14.7 SECONDS (12.7-14.5)
--- NOTE | 2021-03-19 20:39 | ECGEPIP ---
[facility] - ED Test Date: 2021-03-19 Pat Name: INA SORIANO Department: Room: - Gender: Male Buccaro: nuzhat : 1935 Requested By: Odalys Grier Order Number: [id number] Reading MD: Odalys Grier Measurements Intervals [place] Rate: 111 P: 32 ME: 198 QRS: -13 QRSD: 88 T: 57 QT: 320 QTc: 435 Interpretive Statements Sinus tachycardia NSTTW abnormalities and increased rate compared 03/12/21 Electronically Signed on 03-19-2021 20:39:12 EST by Odalys Grier
[2021-03-19] MEDS ORDERED: LEVEMIR (INSULIN DETEMIR) 1 UNITS/0.01ML SC SCH (21:00)
[2021-03-19] MEDS ORDERED: allopurinoL 300 MG TAB PO SCH (21:00)
[2021-03-19] MEDS ORDERED: HumaLOG INSULIN (NovoLOG) PER UNIT SC SCH (21:00)
[2021-03-19] MEDS ORDERED: VITAMIN D 1,000 INTERNATIONAL UNITS TABLET PO SCH (21:00)
[2021-03-19] MEDS ORDERED: ROSUVASTATIN 10 MG TAB (CRESTOR) PO SCH (21:00)
[2021-03-19 21:20] VITALS: O2SAT 95
[2021-03-19 21:22] VITALS: BP 144/68
[2021-03-19] MEDS: APIXABAN 2.5 MG TAB (ELIQUIS) PO SCH (22:13)
[2021-03-19] MEDS: NS 1,000 ML IV SCH (22:26)
[2021-03-20] VITALS: O2SAT 93
[2021-03-20 04:00] VITALS: BP 136/72; O2SAT 95
[2021-03-20 07:34] LABS: BASO % 0.1 % (0.0-1.0); EOS # 0.1 10^3/uL (0.0-0.5); EOS % 1.4 % (0.0-3.0); HEMOGLOBIN 13.9 g/dl (13.5-17.5); LYMPH # 1.1 10^3/uL (1.5-5.0); MEAN CORPUSCULAR HEMOGLOBIN 30.9 pg (27.0-33.0); MEAN CORPUSCULAR HGB CONC 32.3 g/dl (32.0-36.5); MEAN CORPUSCULAR VOLUME 95.6 fl (80.0-96.0); MONO % 10.9 % (2.0-8.0); NEUTROPHILS # 6.9 10^3/uL (1.5-8.5); NEUTROPHILS % 74.7 % (36.0-66.0); PLATELET COUNT, AUTOMATED 322 10^3/uL (150-450); WHITE BLOOD COUNT 9.3 10^3/uL (4.0-10.0)
[2021-03-20 08:00] VITALS: O2SAT 96
[2021-03-20 08:02] LABS: BLOOD UREA NITROGEN 26 MG/DL (7-18); CALCIUM LEVEL 8.9 MG/DL (8.8-10.2); CARBON DIOXIDE LEVEL 37 MEQ/L (21-32); CHLORIDE LEVEL 103 MEQ/L (98-107); CREATININE FOR GFR 1.15 MG/DL (0.70-1.30); GLOMERULAR FILTRATION RATE > 60.0 (>35); GLUCOSE, FASTING 111 MG/DL (70-100); MAGNESIUM LEVEL 2.1 MG/DL (1.8-2.4); POTASSIUM SERUM 3.3 MEQ/L (3.5-5.1); SODIUM LEVEL 144 MEQ/L (136-145)
[2021-03-20] MEDS ORDERED: ASPIRIN 81MG ENTERIC TABLET PO SCH (09:00)
[2021-03-20] MEDS ORDERED: predniSONE 10 MG TAB PO SCH ×2 (09:00)
[2021-03-20] MEDS ORDERED: CYANOCOBALAMIN 500 MCG TAB PO SCH (09:00)
[2021-03-20] MEDS: HumaLOG INSULIN (NovoLOG) PER UNIT SC SCH ×2 (09:04→12:08)
[2021-03-20] MEDS: APIXABAN 2.5 MG TAB (ELIQUIS) PO SCH (09:05)
[2021-03-20 10:45] VITALS: O2SAT 94
[2021-03-20] MEDS ORDERED: POTASSIUM CHLORIDE 10MEQ SR TABLET PO ONE (11:00)
[2021-03-20] MEDS: NS 1,000 ML IV SCH (11:15)
[2021-03-20] MEDS ORDERED: PRED10TA2 PO (12:13)
--- NOTE | 2021-03-20 23:35 | DS.PDOC ---
Discharge Summary General Date of Admission Mar 19, 2021 at 18:24 Date of Discharge Mar 20, 2021 Discharge Summary PROCEDURES PERFORMED DURING STAY: None ADMITTING DIAGNOSES: 1. Hyperglycemia induced by steroid 2. HUANG 3. Recent COVID infection 4. Gout 5. Paroxysmal atrial fibrillation 6. Heart failure with preserved ejection fraction 7. Hyperlipidemia DISCHARGE DIAGNOSES: 1. Hyperglycemia induced by steroid 2. HUANG 3. Recent COVID infection 4. Gout 5. Paroxysmal atrial fibrillation 6. Heart failure with preserved ejection fraction 7. Hyperlipidemia COMPLICATIONS/CHIEF COMPLAINT: Huang,Hyperglycemia Due To Type 2 Diabetes Mellitus. HISTORY OF PRESENT ILLNESS: Mr. Chino is an 86-year-old male with diabetes mellitus type 2 and recent Covid infection who presents with hyperglycemia and found to have HUANG. Patient was recently admitted from March 12 to March 16 for Covid pneumonia. Patient could not be weaned off of oxygen and was discharged home with 2 L of oxygen continuously and steroid taper. While at home, he denied any fever or chills, chest pain, dyspnea, abdominal pain, diarr hea, or dysuria. He reports good oral intake. He felt well, but his blood sugar continuously increase. While at home, his blood sugar was between 240 to greater than 500. He came into the ED for evaluation. While here, he was afebrile and blood pressure was stable. Blood glucose was 418. Patient was given 5 units of regular insulin. Otherwise, patient was found to have HUANG. Baseline creatinine around 0.8-1. Creatinine on admission was 1.7. Admission was requested. Patient will be admitted for hyperglycemia secondary to steroids and HUANG. HOSPITAL COURSE: Patient was put on a sliding scale which rapidly controlled his hyperglycemia. I placed patient on a rapid prednisone taper. Starting 30mg daily for 1 day, then 20mg daily for 1 day, then 10mg daily for 1 day, then stop. Otherwise, renal function improved faster than expected with fluids. Today, patient felt well and felt ready for home. He did require more oxygen when sleeping, but he may have MIHIR. Patient was discharge home today. DISCHARGE MEDICATIONS: Please see below. ALLERGIES: Please see below. PHYSICAL EXAMINATION ON DISCHARGE: VITAL SIGNS: Please see below. GENERAL: Comfortable, in no apparent distress HEENT: Head normocephalic, atraumatic NECK: Supple CARDIOVASCULAR EXAMINATION: Regular rate and rhythm RESPIRATORY EXAMINATION: Lungs clear to auscultation bilaterally ABDOMINAL EXAMINATION: Soft, non-tender, normal bowel sounds EXTREMITIES: Mild bilateral pitting edema NEUROLOGICAL EXAMINATION: CN 3-12 grossly intact PSYCHIATRIC EXAMINATION: Normal mood and affect LABORATORY DATA: Please see below. IMAGING: Radiologist interpretation Renal US Chronic medical renal disease and right renal atrophy. No hydronephrosis. PROGNOSIS: Good ACTIVITY: As tolerated. DIET: Carbohydrate consistent diet DISCHARGE PLAN: Home with home health services DISPOSITION: 06 Home Health Service. DISCHARGE INSTRUCTIONS: 1. Follow up with PCP within 1 week 2. Follow rapid steroid taper ITEMS TO FOLLOWUP ON ON OUTPATIENT: 1. Blood glucose 2. Renal function DISCHARGE CONDITION: Stable. Total time spent on discharge planning, discharge summary, and medication reconciliation: 40 minutes Vital Signs/I&Os Vital Signs Date Time Temp Pulse Resp B/P (MAP) Pulse Ox O2 Delivery O2 Flow Rate FiO2 03/20/21 10:45 94 Nasal Cannula 2.0 03/20/21 04:00 97.9 97 18 136/72 (93) I&O- Last 24 Hours up to 6 AM 03/20/21 06:00 Intake Total 750 ml Output Total 200 ml Balance 550 ml Laboratory Data Labs 24H Laboratory Tests 2 03/20/21 03:54: Bedside Glucose (Misc Panel) 137H 03/20/21 06:09: Immature Granulocyte % (Auto) 0.9, Neutrophils (%) (Auto) 74.7H, Lymphocytes (%) (Auto) 12.0L, Monocytes (%) (Auto) 10.9H, Eosinophils (%) (Auto) 1.4, Basophils (%) (Auto) 0.1, Neutrophils # (Auto) 6.9, Lymphocytes # (Auto) 1.1L, Monocytes # (Auto) 1.0H, Eosinophils # (Auto) 0.1, Basophils # (Auto) 0.0, Nucleated Red Blood Cells % (auto) 0.0, Anion Gap 4L, Glomerular Filtration Rate > 60.0, Calcium Level 8.9, Magnesium Level 2.1, OT-Ibd-O-Type Natriuretic Peptide 620H 03/20/21 11:33: Bedside Glucose (Misc Panel) 140H CBC/BMP Laboratory Tests 03/20/21 06:09 FSBS Laboratory Tests Test 03/20/21 03:54 03/20/21 11:33 Range/Units Bedside Glucose (Misc Panel) 137 140 83-110 MG/DL Discharge Medications Scheduled Apixaban (Eliquis) 5 Mg Tablet, 5 MG PO BID, (Reported) Aspirin (Aspirin EC) 81 Mg Tablet.dr, 81 MG PO DAILY, (Reported) Cholecalciferol (Vitamin D3) (Vitamin D3) 1,000 Unit Tablet, 5,000 UNITS PO QHS, (Reported) Cyanocobalamin (Vitamin B-12) (Vitamin B-12) 1,000 Mcg Tablet, 1,000 MCG PO DAILY, (Reported) Ferrous Sulfate (Ferrous Sulfate) 325 Mg Tablet, 325 MG PO Q2D, (Reported) bedtime Glimepiride (Glimepiride) 4 Mg Tablet, 4 MG PO BID, (Reported) Insulin Degludec (Tresiba Flextouch U-200) 200 Unit/1 Ml Insuln.pen, 10 UNIT SQ QHS, (Reported) Metformin HCl (Metformin HCl ER) 500 Mg Tab.er.24h, 500 MG PO BID, (Reported) Omeprazole (Omeprazole) 40 Mg Capsule.dr, 40 MG PO QHS, (Reported) Potassium Chloride (Potassium Chloride) 10 Meq Tab.er.prt, 10 MEQ PO BID, (Reported) Prednisone (Prednisone) 10 Mg Tablet, 10 MG PO DAILY Take two tablets for one day, then take one tablet for one day, then stop Rosuvastatin Calcium (Rosuvastatin Calcium) 20 Mg Tablet, 20 MG PO QHS, (Reported) Torsemide (Torsemide) 20 Mg Tablet, 30 MG PO DAILY, (Reported) allopurinoL (allopurinoL) 300 Mg Tablet, 300 MG PO QHS, (Reported) Scheduled PRN Albuterol Sulfate (Proair Hfa) 8.5 Gm Hfa.aer.ad, 2 PUFF INH Q4HP PRN for WHEEZING Diclofenac Sodium (Diclofenac Sodium) 1% 100GM Gel..gram., 1 APPLIC TOP QID PRN for PAIN LEVEL 1-4, (Reported) APPLY TO RIGHT KNEE AND RIGHT INDEX FINGER Fluticasone Propionate (Fluticasone Propionate) 16 Gm [place].susp, 2 SPRAY NARES DAILY PRN for ALLERGIES, (Reported) Allergies Coded Allergies: No Known Allergies (Verified , 10/10/04) DENIS LEIJA DO Mar 20, 2021 23:35
== END 2021-03-20 13:43 | disposition home health service (06) | DRG 638 ==
LOC: EDBD 15:27 → M ED 15:27 → M ED INP 18:24 → ENRESERV 19:45 → M 4MAIN 21:20
PROVIDERS: ADMIT Internal Medicine; ATTEND Internal Medicine
DX: E11.65 Type 2 diabetes mellitus with hyperglycemia (principal); N17.9 Acute kidney failure, unspecified; I50.32 Chronic diastolic (congestive) heart failure; I11.0 Hypertensive heart disease with heart failure; I48.0 Paroxysmal atrial fibrillation; U09.9 Post COVID-19 condition, unspecified; R09.02 Hypoxemia; Z79.899 Other long term (current) drug therapy; Z79.82 Long term (current) use of aspirin; Z86.73 Personal history of transient ischemic attack (TIA), and cerebral infarction without residual deficits; K21.9 Gastro-esophageal reflux disease without esophagitis; R56.9 Unspecified convulsions; I48.91 Unspecified atrial fibrillation; G47.33 Obstructive sleep apnea (adult) (pediatric); Z85.46 Personal history of malignant neoplasm of prostate; Z92.3 Personal history of irradiation; E78.5 Hyperlipidemia, unspecified; M10.9 Gout, unspecified; Z87.891 Personal history of nicotine dependence

== ENCOUNTER → 2021-04-13 | Outpatient (CLI) | payer MEDICARE, OTHER ==
--- NOTE | 2021-04-13 15:03 | REP ---
INDICATION: RT ELBOW PAIN. COMPARISON: None. TECHNIQUE: AP, lateral, axial views of the right elbow. FINDINGS: Lateral view best demonstrates significant primarily posterior soft tissue swelling suggesting bursitis. Osseous structures and joint spaces suggest mild age-related changes. No evidence for acute fracture or dislocation. IMPRESSION: Primarily posterior swelling suggesting bursitis. <Electronically signed by Angel Garcia > 04/13/21 0326
== END ==
LOC: M SOG 14:20
PROVIDERS: ATTEND Orthopaedic Surgery
DX: M75.51 Bursitis of right shoulder (principal)

== ENCOUNTER → 2021-05-02 | Outpatient (CLI) | payer MEDICARE, OTHER ==
[2021-05-02 11:43] LABS: BLOOD UREA NITROGEN 16 MG/DL (7-18); CALCIUM LEVEL 9.1 MG/DL (8.8-10.2); CARBON DIOXIDE LEVEL 36 MEQ/L (21-32); CHLORIDE LEVEL 101 MEQ/L (98-107); CREATININE FOR GFR 1.19 MG/DL (0.70-1.30); GLOMERULAR FILTRATION RATE > 60.0 (>35); GLUCOSE, FASTING 153 MG/DL (70-100); HEMOGLOBIN A1c 7.3 %; POTASSIUM SERUM 4.4 MEQ/L (3.5-5.1); SODIUM LEVEL 141 MEQ/L (136-145)
== END ==
LOC: M PLALAB 08:47
PROVIDERS: ATTEND Nurse Practitioner Family
DX: N17.9 Acute kidney failure, unspecified (principal)

== ENCOUNTER 2021-11-02 09:58 | Outpatient (RCR) | payer MEDICARE ==
[~2021-11-02 09:58] MED LIST changes: -D31000TA2 PO; -OMEP-221 PO; +OMEP40CA5 PO; +VITA100093 PO
== END 2021-11-26 ==
LOC: M PT 09:58
PROVIDERS: ATTEND Family Medicine
DX: M47.816 Spondylosis without myelopathy or radiculopathy, lumbar region (principal)

== ENCOUNTER → 2021-12-12 | Outpatient (CLI) | payer MEDICARE ==
[~2021-12-12] MED LIST changes: +POTA-150 PO; -POTA10TA17 PO
[2021-12-12 15:06] LABS: HEMOGLOBIN A1c 6.9 %
[2021-12-12 15:17] LABS: BASO % 0.5 % (0.0-1.0); EOS # 0.3 10^3/uL (0.0-0.5); EOS % 4.4 % (0.0-3.0); HEMATOCRIT 42.9 % (42.0-52.0); HEMOGLOBIN 13.3 g/dl (13.5-17.5); LYMPH % 26.3 % (24.0-44.0); MEAN CORPUSCULAR HEMOGLOBIN 31.7 pg (27.0-33.0); MEAN CORPUSCULAR VOLUME 102.4 fl (80.0-96.0); MONO # 0.5 10^3/uL (0.0-0.8); MONO % 6.8 % (2.0-8.0); NEUTROPHILS # 4.7 10^3/uL (1.5-8.5); NEUTROPHILS % 61.7 % (36.0-66.0); PLATELET COUNT, AUTOMATED 257 10^3/uL (150-450); RED BLOOD COUNT 4.19 10^6/uL (4.30-6.10); WHITE BLOOD COUNT 7.7 10^3/uL (4.0-10.0)
[2021-12-12 15:29] LABS: ALBUMIN 3.1 GM/DL (3.2-5.2); ALT/SGPT 19 U/L (12-78); BILIRUBIN,TOTAL 0.3 MG/DL (0.2-1.0); BLOOD UREA NITROGEN 24 MG/DL (7-18); CARBON DIOXIDE LEVEL 33 MEQ/L (21-32); CHLORIDE LEVEL 103 MEQ/L (98-107); CREATININE FOR GFR 1.03 MG/DL (0.70-1.30); GLOMERULAR FILTRATION RATE > 60.0 (>35); GLUCOSE, FASTING 131 MG/DL (70-100); MAGNESIUM LEVEL 1.9 MG/DL (1.8-2.4); NT-PRO BNP 133 PG/ML (<450); POTASSIUM SERUM 4.5 MEQ/L (3.5-5.1); SODIUM LEVEL 138 MEQ/L (136-145); TOTAL PROTEIN 6.1 GM/DL (6.4-8.2); URIC ACID 3.8 MG/DL (3.5-7.2)
[2021-12-12 15:55] LABS: PTH INTACT 56.1 PG/ML (18.5-88.0); TOTAL 25(OH) VITAMIN D 78.5 NG/ML (30.0-100.0); VITAMIN B12 LEVEL 1934 PG/ML (247-911)
== END ==
LOC: M PLALAB 09:28
PROVIDERS: ATTEND Family Medicine
DX: C61 Malignant neoplasm of prostate (principal); I50.32 Chronic diastolic (congestive) heart failure; E11.8 Type 2 diabetes mellitus with unspecified complications; E78.5 Hyperlipidemia, unspecified; E53.8 Deficiency of other specified B group vitamins; D50.9 Iron deficiency anemia, unspecified; D47.2 Monoclonal gammopathy; M10.9 Gout, unspecified; Z79.899 Other long term (current) drug therapy

== ENCOUNTER → 2022-05-10 | Outpatient (CLI) | payer MEDICAID, MEDICARE ==
[~2022-05-10] MED LIST changes: -DOXY-350 PO; +DOXY-444 PO
[2022-05-10 17:25] LABS: BASO % 0.3 % (0.0-1.0); EOS # 0.3 10^3/uL (0.0-0.5); EOS % 3.4 % (0.0-3.0); HEMATOCRIT 45.8 % (42.0-52.0); HEMOGLOBIN 14.2 g/dl (13.5-17.5); LYMPH # 2.3 10^3/uL (1.5-5.0); LYMPH % 25.9 % (24.0-44.0); MEAN CORPUSCULAR VOLUME 96.8 fl (80.0-96.0); MONO # 0.8 10^3/uL (0.0-0.8); MONO % 8.5 % (2.0-8.0); NEUTROPHILS # 5.4 10^3/uL (1.5-8.5); NEUTROPHILS % 61.7 % (36.0-66.0); PLATELET COUNT, AUTOMATED 290 10^3/uL (150-450); RED BLOOD COUNT 4.73 10^6/uL (4.30-6.10); WHITE BLOOD COUNT 8.8 10^3/uL (4.0-10.0)
[2022-05-10 17:48] LABS: HEMOGLOBIN A1c 6.8 % (4.0-6.0)
[2022-05-10 18:01] LABS: PROSTATIC SPECIFIC AG MONITOR 22.69 NG/ML (< 4.00)
[2022-05-10 18:04] LABS: ALBUMIN 3.4 G/DL (3.2-5.2); ALKALINE PHOSPHATASE 67 U/L (46-116); ALT/SGPT 19 U/L (7.0-40); AST/SGOT 16 U/L (<34); BILIRUBIN,TOTAL 0.4 MG/DL (0.3-1.2); BLOOD UREA NITROGEN 21 MG/DL (9-23); CALCIUM LEVEL 9.3 MG/DL (8.3-10.6); CARBON DIOXIDE LEVEL 34 MMOL/L (20-31); CHLORIDE LEVEL 101 MMOL/L (98-107); GLOMERULAR FILTRATION RATE > 60.0 (>35); GLUCOSE, FASTING 135 MG/DL (74-106); POTASSIUM SERUM 4.3 MMOL/L (3.5-5.1); SODIUM LEVEL 141 MMOL/L (136-145); TOTAL PROTEIN 6.5 G/DL (5.7-8.2)
[2022-05-10 18:05] LABS: FERRITIN 11.6 NG/ML (10.5-307.3)
[2022-05-13 11:08] LABS: FREE KAPPA LIGHT CHAINS SERUM 41.7 mg/L (3.3-19.4); FREE LAMBDA LIGHT CHAINS SERUM 16.5 mg/L (5.7-26.3); KAPPA/LAMBDA RATIO SERUM 2.53 (0.26-1.65)
== END ==
LOC: M PLALAB 14:36
PROVIDERS: ATTEND Family Medicine
DX: E11.8 Type 2 diabetes mellitus with unspecified complications (principal); R97.20 Elevated prostate specific antigen [PSA]

== ENCOUNTER → 2022-05-10 | Outpatient (CLI) | payer MEDICARE, MEDICAID ==
[2022-05-10 17:25] LABS: BASO % 0.4 % (0.0-1.0); EOS # 0.3 10^3/uL (0.0-0.5); EOS % 3.3 % (0.0-3.0); HEMATOCRIT 46.7 % (42.0-52.0); HEMOGLOBIN 14.1 g/dl (13.5-17.5); LYMPH # 2.1 10^3/uL (1.5-5.0); LYMPH % 24.2 % (24.0-44.0); MEAN CORPUSCULAR HEMOGLOBIN 29.3 pg (27.0-33.0); MEAN CORPUSCULAR HGB CONC 30.2 g/dl (32.0-36.5); MEAN CORPUSCULAR VOLUME 96.9 fl (80.0-96.0); MONO # 0.9 10^3/uL (0.0-0.8); MONO % 10.3 % (2.0-8.0); NEUTROPHILS # 5.2 10^3/uL (1.5-8.5); NEUTROPHILS % 61.6 % (36.0-66.0); PLATELET COUNT, AUTOMATED 284 10^3/uL (150-450); RED BLOOD COUNT 4.82 10^6/uL (4.30-6.10); WHITE BLOOD COUNT 8.5 10^3/uL (4.0-10.0)
== END ==
LOC: M PLALAB 14:38
PROVIDERS: ATTEND Physician Assistant
DX: I50.32 Chronic diastolic (congestive) heart failure (principal)

== ENCOUNTER → 2022-06-05 | Outpatient (CLI) | payer MEDICAID, MEDICARE, OTHER | LOC: M PLAIMG 14:04 | PROVIDERS: ATTEND Physician Assistant | DX: M47.816 Spondylosis without myelopathy or radiculopathy, lumbar region (principal); M17.12 Unilateral primary osteoarthritis, left knee ==

== ENCOUNTER → 2022-06-25 | Outpatient (CLI) | payer MEDICARE | LOC: M RAD 12:58 | PROVIDERS: ATTEND Chiropractor | DX: Z53.9 Procedure and treatment not carried out, unspecified reason (principal) ==

== ENCOUNTER → 2022-07-16 | Outpatient (REF) | payer MEDICARE, MEDICAID | LOC: M SFHCPLAZ 10:07 | PROVIDERS: ATTEND Physician Assistant | DX: R39.9 Unspecified symptoms and signs involving the genitourinary system (principal) ==

== ENCOUNTER → 2022-09-18 | Outpatient (CLI) | payer MEDICARE, MEDICAID ==
[~2022-09-18] MED LIST changes: +FLUT50SP17 NARES; -FLUTISP NARES
== END ==
LOC: M PLAIMG 13:53
PROVIDERS: ATTEND Orthopaedic Surgery
DX: M47.896 Other spondylosis, lumbar region (principal)

== ENCOUNTER → 2022-10-01 | Outpatient (CLI) | payer MEDICARE, MEDICAID ==
[2022-10-01 18:20] LABS: BASO % 0.5 % (0.0-1.0); EOS # 0.3 10^3/uL (0.0-0.5); EOS % 3.2 % (0.0-3.0); HEMATOCRIT 49.7 % (42.0-52.0); HEMOGLOBIN 15.8 g/dl (13.5-17.5); LYMPH # 2.4 10^3/uL (1.5-5.0); LYMPH % 29.9 % (24.0-44.0); MEAN CORPUSCULAR HEMOGLOBIN 31.4 pg (27.0-33.0); MEAN CORPUSCULAR HGB CONC 31.8 g/dl (32.0-36.5); MEAN CORPUSCULAR VOLUME 98.8 fl (80.0-96.0); MONO # 0.7 10^3/uL (0.0-0.8); MONO % 9.1 % (2.0-8.0); NEUTROPHILS # 4.6 10^3/uL (1.5-8.5); NEUTROPHILS % 57.1 % (36.0-66.0); PLATELET COUNT, AUTOMATED 286 10^3/uL (150-450); RED BLOOD COUNT 5.03 10^6/uL (4.30-6.10)
[2022-10-01 18:45] LABS: ALBUMIN 3.4 G/DL (3.2-5.2); ALKALINE PHOSPHATASE 71 U/L (46-116); ALT/SGPT 16 U/L (7.0-40); AST/SGOT 10 U/L (<34); BILIRUBIN,TOTAL 0.4 MG/DL (0.3-1.2); BLOOD UREA NITROGEN 19 MG/DL (9-23); CALCIUM LEVEL 8.5 MG/DL (8.3-10.6); CARBON DIOXIDE LEVEL 32 MMOL/L (20-31); CHLORIDE LEVEL 101 MMOL/L (98-107); CHOLESTEROL LEVEL 137 MG/DL (<200); CHOLESTEROL RISK RATIO 2.76 (<5); CREATININE FOR GFR 1.01 MG/DL (0.70-1.30); GLOMERULAR FILTRATION RATE > 60.0 (>35); GLUCOSE, FASTING 179 MG/DL (74-106); HDL CHOLESTEROL 49.5 MG/DL (>40); LDL CHOLESTEROL 68.5 MG/DL (<100); MAGNESIUM LEVEL 1.8 MG/DL (1.8-2.4); NON-HDL-C 87.5 MG/DL; POTASSIUM SERUM 4.3 MMOL/L (3.5-5.1); SODIUM LEVEL 140 MMOL/L (136-145); TOTAL PROTEIN 6.7 G/DL (5.7-8.2); TRIGLYCERIDES LEVEL 95 MG/DL (<150)
[2022-10-01 18:49] LABS: HEMOGLOBIN A1c 7.2 % (4.0-6.0)
== END ==
LOC: M PLALAB 14:59
PROVIDERS: ATTEND Family Medicine
DX: E11.8 Type 2 diabetes mellitus with unspecified complications (principal); D47.2 Monoclonal gammopathy; I50.32 Chronic diastolic (congestive) heart failure

== ENCOUNTER → 2022-11-03 | Outpatient (CLI) | payer MEDICAID, MEDICARE ==
[~2022-11-03] MED LIST changes: +CYAN-1 PO; -CYAN100050 PO; -ROSU20TA5 PO; +ROSU20TA61 PO
== END ==
LOC: M RAD 12:26
PROVIDERS: ATTEND Orthopaedic Surgery
DX: M50.30 Other cervical disc degeneration, unspecified cervical region (principal)